=== PATIENT | male | born 1965 | race African-American/Black ===

== ENCOUNTER 2017-05-04 19:01 | Inpatient (IN) | payer SELFPAY, MEDICAID ==
[2017-05-04 19:48] LABS: ADD MAN DIFF? NO
[2017-05-04 19:52] LABS: BASO # 0.1 x10^3/uL (0.0-0.2); BASO % 2 % (0-3); EOS # 0.1 x10^3/uL (0.0-0.7); EOS % 2 % (0-3); HEMATOCRIT 36.4 % (39.0-53.0); HEMOGLOBIN 11.9 g/dL (13.0-17.5); LYMPH # 0.6 x10^3/uL (1.0-4.8); LYMPH % 10 % (24-48); MEAN CORPUSCULAR HEMOGLOBIN 27 pg (25-35); MEAN CORPUSCULAR HGB CONC 33 g/dL (31-37); MEAN CORPUSCULAR VOLUME 82 fL (79-100); MONO # 0.5 x10^3/uL (0.0-1.1); MONO % 8 % (0-9); NEUT # 4.8 x10^3uL (1.8-7.7); NEUT % 79 % (31-73); PLATELET COUNT 270 x10^3/uL (140-400); RED BLOOD COUNT 4.44 x10^6/uL (4.30-5.70); RED CELL DISTRIBUTION WIDTH 15.4 % (11.5-14.5); WHITE BLOOD COUNT 6.2 x10^3/uL (4.0-11.0)
[2017-05-04] MEDS: hydrALAZINE 20 MG/ML VIAL. IVP (19:53)
[2017-05-04 20:06] LABS: ANION GAP 15 (6-14); BLOOD UREA NITROGEN 53 mg/dL (8-26); BUN/CREATININE RATIO 8 (6-20); CALCIUM 8.6 mg/dL (8.5-10.1); CARBON DIOXIDE 27 mmol/L (21-32); CHLORIDE 100 mmol/L (98-107); CREATININE 6.7 mg/dL (0.7-1.3); GFR 10.5; GLUCOSE 120 mg/dL (70-99); SODIUM 142 mmol/L (136-145)
[2017-05-04 20:10] LABS: INR 1.1 (0.8-1.1); PROTHROMBIN TIME PATIENT 13.3 SEC (11.7-14.0)
[2017-05-04 20:11] LABS: PARTIAL THROMBOPLASTIN TIME 32 SEC (24-38)
[2017-05-04 20:13] LABS: ALBUMIN 3.6 g/dL (3.4-5.0); ALBUMIN/GLOBULIN RATIO 0.9 (1.0-1.7); ALK PHOS 119 U/L (46-116); ALT (SGPT) 28 U/L (16-63); AST (SGOT) 27 U/L (15-37); TOTAL BILIRUBIN 0.5 mg/dL (0.2-1.0); TOTAL PROTEIN 7.4 g/dL (6.4-8.2)
[2017-05-04 20:17] LABS: TROPONINI 0.424 ng/mL (0.000-0.055)
[2017-05-04 20:18] LABS: NT-PRO BNP 24920 pg/mL (0-124)
[2017-05-04] MEDS: cloNIDine HCL 0.1 MG TABLET PO ×2 (21:10→22:12)
[2017-05-04] MEDS: ASPIRIN 325 MG TABLET PO (21:37)
[2017-05-04] MEDS ORDERED: NITROGLYCERIN SUBLINGUAL 0.4 MG BOTTLE OF 25. SL (21:45)
[2017-05-04] MEDS ORDERED: MORPHINE SULFATE 2 MG/ML DISP.SYRIN. IV (21:45)
[2017-05-04] MEDS ORDERED: ACETAMINOPHEN 325 MG TABLET. PO (21:45)
[2017-05-04] MEDS ORDERED: ONDANSETRON PF 4 MG/2 ML VIAL. IV (21:45)
[2017-05-05 03:56] LABS: ADD MAN DIFF? NO
[2017-05-05 04:01] LABS: BASO # 0.1 x10^3/uL (0.0-0.2); BASO % 2 % (0-3); EOS # 0.1 x10^3/uL (0.0-0.7); EOS % 3 % (0-3); HEMATOCRIT 33.8 % (39.0-53.0); LYMPH # 0.8 x10^3/uL (1.0-4.8); LYMPH % 18 % (24-48); MEAN CORPUSCULAR HEMOGLOBIN 27 pg (25-35); MEAN CORPUSCULAR HGB CONC 33 g/dL (31-37); MEAN CORPUSCULAR VOLUME 82 fL (79-100); MONO # 0.5 x10^3/uL (0.0-1.1); MONO % 10 % (0-9); NEUT % 67 % (31-73); PLATELET COUNT 239 x10^3/uL (140-400); RED BLOOD COUNT 4.12 x10^6/uL (4.30-5.70); RED CELL DISTRIBUTION WIDTH 15.6 % (11.5-14.5); WHITE BLOOD COUNT 4.5 x10^3/uL (4.0-11.0)
[2017-05-05 04:13] LABS: ANION GAP 11 (6-14); BLOOD UREA NITROGEN 54 mg/dL (8-26); CALCIUM 8.2 mg/dL (8.5-10.1); CARBON DIOXIDE 25 mmol/L (21-32); CHLORIDE 104 mmol/L (98-107); CREATININE 6.7 mg/dL (0.7-1.3); GFR 10.5; GLUCOSE 98 mg/dL (70-99); POTASSIUM 4.6 mmol/L (3.5-5.1); SODIUM 140 mmol/L (136-145)
[2017-05-05 04:22] LABS: TROPONINI 0.378 ng/mL (0.000-0.055)
[2017-05-05] MEDS: cloNIDine HCL 0.2 MG TABLET PO ×3 (06:08→22:27)
[2017-05-05 10:00] LABS: TROPONINI 0.308 ng/mL (0.000-0.055)
[2017-05-05] MEDS: ASPIRIN ENTERIC COATED 325 MG TABLET.DR. PO (10:12)
[2017-05-05] MEDS: amLODIPine BESYLATE 10 MG TABLET PO (10:12)
[2017-05-05] MEDS: CALCIUM ACETATE 667 MG CAPSULE PO ×4 (10:12→17:46)
[2017-05-05] MEDS: CARVEDILOL 6.25 MG TABLET. PO ×2 (10:13→17:47)
[2017-05-05] MEDS ORDERED: IV NORMAL SALINE 1000ML BAG 1,000 ML IV ×2 (10:47)
[2017-05-05] MEDS ORDERED: DIALYSIS PATIENT. MC (11:00)
[2017-05-05] MEDS ORDERED: diphenhydrAMINE 50 MG/ML VIAL IV ×2 (11:00)
[2017-05-05] MEDS ORDERED: 0.9 % SODIUM CHLORIDE 10 ML DISP.SYRIN. IV ×2 (11:00)
[2017-05-05] MEDS: oxyCODONE/APAP 5/325 1 TAB TABLET PO (19:00)
[2017-05-05] MEDS ORDERED: LISINOPRIL 20 MG TABLET PO (21:00)
[2017-05-06] MEDS: cloNIDine HCL 0.2 MG TABLET PO ×3 (06:06→21:17)
[2017-05-06] MEDS: IPRATRPIUM/ALBUTEROL 0.5/2.5MG 3 ML NEBU. NEB (07:21)
[2017-05-06] MEDS: CALCIUM ACETATE 667 MG CAPSULE PO ×3 (09:02→17:36)
[2017-05-06] MEDS: ASPIRIN ENTERIC COATED 325 MG TABLET.DR. PO (09:03)
[2017-05-06] MEDS: amLODIPine BESYLATE 10 MG TABLET PO (09:04)
[2017-05-06] MEDS: CARVEDILOL 6.25 MG TABLET. PO ×2 (09:04→17:36)
[2017-05-06] MEDS: ALBUTEROL SULFATE 2.5 MG/3 ML NEBU. NEB (12:01)
[2017-05-07] MEDS: cloNIDine HCL 0.2 MG TABLET PO ×3 (05:38→21:35)
[2017-05-07 05:39] LABS: HEMOGLOBIN 10.1 g/dL (13.0-17.5); MEAN CORPUSCULAR HEMOGLOBIN 28 pg (25-35); MEAN CORPUSCULAR HGB CONC 34 g/dL (31-37); MEAN CORPUSCULAR VOLUME 83 fL (79-100); PLATELET COUNT 190 x10^3/uL (140-400); RED BLOOD COUNT 3.63 x10^6/uL (4.30-5.70); RED CELL DISTRIBUTION WIDTH 15.7 % (11.5-14.5); WHITE BLOOD COUNT 4.2 x10^3/uL (4.0-11.0)
[2017-05-07 06:10] LABS: ANION GAP 10 (6-14); BLOOD UREA NITROGEN 47 mg/dL (8-26); CARBON DIOXIDE 27 mmol/L (21-32); CHLORIDE 102 mmol/L (98-107); CREATININE 5.7 mg/dL (0.7-1.3); GFR 12.7; GLUCOSE 95 mg/dL (70-99); POTASSIUM 4.7 mmol/L (3.5-5.1); SODIUM 139 mmol/L (136-145)
[2017-05-07] MEDS ORDERED: IV NORMAL SALINE 1000ML BAG 1,000 ML IV ×2 (07:07)
[2017-05-07] MEDS ORDERED: diphenhydrAMINE 50 MG/ML VIAL IV ×2 (07:15)
[2017-05-07] MEDS ORDERED: DIALYSIS PATIENT. MC (07:15)
[2017-05-07] MEDS ORDERED: 0.9 % SODIUM CHLORIDE 10 ML DISP.SYRIN. IV ×2 (07:15)
[2017-05-07] MEDS: CALCIUM ACETATE 667 MG CAPSULE PO ×3 (08:00→17:23)
[2017-05-07] MEDS: amLODIPine BESYLATE 10 MG TABLET PO (11:24)
[2017-05-07] MEDS: ASPIRIN ENTERIC COATED 325 MG TABLET.DR. PO (11:24)
[2017-05-07] MEDS: CARVEDILOL 6.25 MG TABLET. PO ×2 (11:24→17:23)
[2017-05-07] MEDS: oxyCODONE/APAP 5/325 1 TAB TABLET PO ×2 (11:25→21:34)
[2017-05-08] MEDS: cloNIDine HCL 0.2 MG TABLET PO ×3 (05:43→20:31)
[2017-05-08] MEDS: amLODIPine BESYLATE 10 MG TABLET PO (08:39)
[2017-05-08] MEDS: CALCIUM ACETATE 667 MG CAPSULE PO ×3 (08:39→17:26)
[2017-05-08] MEDS: ASPIRIN ENTERIC COATED 325 MG TABLET.DR. PO (08:39)
[2017-05-08] MEDS: CARVEDILOL 6.25 MG TABLET. PO ×2 (08:39→17:27)
[2017-05-08] MEDS: ALBUTEROL SULFATE 2.5 MG/3 ML NEBU. NEB ×2 (11:16→23:42)
[2017-05-08] MEDS: oxyCODONE/APAP 5/325 1 TAB TABLET PO (20:30)
[2017-05-09] MEDS: cloNIDine HCL 0.2 MG TABLET PO ×4 (05:01→20:51)
[2017-05-09] MEDS: CALCIUM ACETATE 667 MG CAPSULE PO ×4 (08:01→16:48)
[2017-05-09] MEDS: amLODIPine BESYLATE 10 MG TABLET PO (08:02)
[2017-05-09] MEDS: ASPIRIN ENTERIC COATED 325 MG TABLET.DR. PO (08:03)
[2017-05-09] MEDS: CARVEDILOL 6.25 MG TABLET. PO ×2 (08:04→16:48)
[2017-05-09] MEDS: ALPRAZolam 0.5 MG TABLET PO ×2 (09:00→18:50)
[2017-05-09] MEDS: NITROGLYCERIN SUBLINGUAL 0.4 MG BOTTLE OF 25. SL (13:26)
[2017-05-09] MEDS: MORPHINE SULFATE 4 MG/ML DISP.SYRIN. IV (13:29)
[2017-05-09 14:40] LABS: TROPONINI 0.097 ng/mL (0.000-0.055)
[2017-05-09] MEDS ORDERED: CALCIUM CARBONATE 500 MG TAB.CHEW PO (16:00)
[2017-05-09] MEDS: FAMOTIDINE 20 MG/2 ML VIAL IVP (16:48)
[2017-05-10 06:10] LABS: ADD MAN DIFF? NO
[2017-05-10 06:13] LABS: BASO % 1 % (0-3); EOS # 0.2 x10^3/uL (0.0-0.7); EOS % 4 % (0-3); HEMATOCRIT 31.4 % (39.0-53.0); HEMOGLOBIN 10.2 g/dL (13.0-17.5); LYMPH # 0.9 x10^3/uL (1.0-4.8); LYMPH % 26 % (24-48); MEAN CORPUSCULAR HEMOGLOBIN 27 pg (25-35); MEAN CORPUSCULAR HGB CONC 33 g/dL (31-37); MEAN CORPUSCULAR VOLUME 82 fL (79-100); MONO # 0.4 x10^3/uL (0.0-1.1); MONO % 10 % (0-9); NEUT # 2.1 x10^3uL (1.8-7.7); NEUT % 59 % (31-73); PLATELET COUNT 173 x10^3/uL (140-400); RED BLOOD COUNT 3.83 x10^6/uL (4.30-5.70); RED CELL DISTRIBUTION WIDTH 15.8 % (11.5-14.5); WHITE BLOOD COUNT 3.6 x10^3/uL (4.0-11.0)
[2017-05-10 06:39] LABS: ALBUMIN 2.9 g/dL (3.4-5.0); ALBUMIN/GLOBULIN RATIO 0.9 (1.0-1.7); ALK PHOS 91 U/L (46-116); ALT (SGPT) 15 U/L (16-63); ANION GAP 10 (6-14); AST (SGOT) 8 U/L (15-37); BLOOD UREA NITROGEN 60 mg/dL (8-26); BUN/CREATININE RATIO 10 (6-20); CALCIUM 8.2 mg/dL (8.5-10.1); CARBON DIOXIDE 26 mmol/L (21-32); CHLORIDE 102 mmol/L (98-107); CHOLESTEROL 169 mg/dL (0-200); CREATININE 6.1 mg/dL (0.7-1.3); GFR 11.7; GLUCOSE 98 mg/dL (70-99); HDLC 85 mg/dL (40-60); LDLC 78 mg/dL (0-100); NON-HDL CHOLESTEROL 84 mg/dL (0-129); POTASSIUM 4.7 mmol/L (3.5-5.1); SODIUM 138 mmol/L (136-145); TOTAL BILIRUBIN 0.3 mg/dL (0.2-1.0); TOTAL PROTEIN 6.1 g/dL (6.4-8.2); TRIGLYCERIDES 30 mg/dL (0-150); VLDLC 6 mg/dL (0-40)
[2017-05-10] MEDS: cloNIDine HCL 0.2 MG TABLET PO ×3 (06:43→20:52)
[2017-05-10 07:02] LABS: TROPONINI 0.085 ng/mL (0.000-0.055)
[2017-05-10] MEDS: CALCIUM ACETATE 667 MG CAPSULE PO ×3 (08:00→17:00)
[2017-05-10] MEDS ORDERED: IV NORMAL SALINE 1000ML BAG 1,000 ML IV ×2 (08:17)
[2017-05-10] MEDS ORDERED: DIALYSIS PATIENT. MC (08:30)
[2017-05-10] MEDS ORDERED: diphenhydrAMINE 50 MG/ML VIAL IV ×2 (08:30)
[2017-05-10] MEDS ORDERED: 0.9 % SODIUM CHLORIDE 10 ML DISP.SYRIN. IV ×2 (08:30)
[2017-05-10] MEDS: CARVEDILOL 6.25 MG TABLET. PO ×2 (09:27→17:00)
[2017-05-10] MEDS: ASPIRIN ENTERIC COATED 325 MG TABLET.DR. PO (09:27)
[2017-05-10] MEDS: amLODIPine BESYLATE 10 MG TABLET PO (09:28)
[2017-05-10] MEDS ORDERED: LIDOCAINE 2% 20 ML VIAL. (11:11)
[2017-05-10] MEDS ORDERED: IODIXANOL 320 MG/ML 100 ML VIAL. (11:12)
[2017-05-10] MEDS ORDERED: fentaNYL PF VIAL 100 MCG/2 ML VIAL (11:59)
[2017-05-10] MEDS ORDERED: MIDAZOLAM HCL/PF 2 MG/2 ML VIAL. (11:59)
[2017-05-10] MEDS: IODIXANOL 320 MG/ML 100 ML VIAL. IART ×2 (12:15→12:21)
[2017-05-10] MEDS: MIDAZOLAM HCL/PF 2 MG/2 ML VIAL. IV (12:21)
[2017-05-10] MEDS: LIDOCAINE 2% 20 ML VIAL. IJ (12:21)
[2017-05-10] MEDS: fentaNYL PF VIAL 100 MCG/2 ML VIAL IV (12:22)
[2017-05-11] MEDS: ALPRAZolam 0.5 MG TABLET PO ×3 (01:02→21:11)
[2017-05-11] MEDS: cloNIDine HCL 0.2 MG TABLET PO ×3 (05:59→21:12)
[2017-05-11] MEDS: amLODIPine BESYLATE 10 MG TABLET PO (08:15)
[2017-05-11] MEDS: CARVEDILOL 6.25 MG TABLET. PO ×2 (08:15→16:55)
[2017-05-11] MEDS: ASPIRIN ENTERIC COATED 325 MG TABLET.DR. PO (08:15)
[2017-05-11] MEDS: CALCIUM ACETATE 667 MG CAPSULE PO ×3 (08:15→16:55)
[2017-05-11] MEDS: MORPHINE SULFATE 4 MG/ML DISP.SYRIN. IV (20:46)
[2017-05-11] MEDS: oxyCODONE/APAP 5/325 1 TAB TABLET PO (21:13)
[2017-05-12 05:38] LABS: ANION GAP 10 (6-14); BLOOD UREA NITROGEN 44 mg/dL (8-26); CALCIUM 8.1 mg/dL (8.5-10.1); CARBON DIOXIDE 26 mmol/L (21-32); CHLORIDE 103 mmol/L (98-107); CREATININE 5.3 mg/dL (0.7-1.3); GFR 13.8; GLUCOSE 136 mg/dL (70-99); POTASSIUM 3.7 mmol/L (3.5-5.1); SODIUM 139 mmol/L (136-145)
[2017-05-12] MEDS: cloNIDine HCL 0.2 MG TABLET PO ×2 (05:38→13:44)
[2017-05-12] MEDS: oxyCODONE/APAP 5/325 1 TAB TABLET PO (05:38)
[2017-05-12] MEDS: ALPRAZolam 0.5 MG TABLET PO (05:38)
[2017-05-12] MEDS: amLODIPine BESYLATE 10 MG TABLET PO (08:23)
[2017-05-12] MEDS: CARVEDILOL 6.25 MG TABLET. PO (08:23)
[2017-05-12] MEDS: CALCIUM ACETATE 667 MG CAPSULE PO ×2 (08:23→11:12)
[2017-05-12] MEDS: ASPIRIN ENTERIC COATED 325 MG TABLET.DR. PO (08:23)
[2017-05-12] MEDS ORDERED: DIALYSIS PATIENT. MC ×2 (08:45)
[2017-05-12] MEDS ORDERED: ACETAMINOPHEN 325 MG TABLET. PO (12:00)
== END 2017-05-12 14:33 | disposition home or self-care (01) | DRG 286 ==
LOC: 5 NORTH 05-09 01:48 → ER 19:01 → 5 NORTH 05-06 16:17 → 2 SOUTH 20:20
PROC: 5A1D70Z Performance of Urinary Filtration, Intermittent, Less than 6 Hours Per Day (ICD-10-PCS; 2017-05-05)
PROC: 5A1D70Z Performance of Urinary Filtration, Intermittent, Less than 6 Hours Per Day (ICD-10-PCS; 2017-05-07)
PROC: 4A023N7 Measurement of Cardiac Sampling and Pressure, Left Heart, Percutaneous Approach (ICD-10-PCS; principal; 2017-05-10)
PROC: B2111ZZ Fluoroscopy of Multiple Coronary Arteries using Low Osmolar Contrast (ICD-10-PCS; 2017-05-10)
PROC: B2151ZZ Fluoroscopy of Left Heart using Low Osmolar Contrast (ICD-10-PCS; 2017-05-10)
PROC: 5A1D70Z Performance of Urinary Filtration, Intermittent, Less than 6 Hours Per Day (ICD-10-PCS; 2017-05-10)
PROC: 5A1D70Z Performance of Urinary Filtration, Intermittent, Less than 6 Hours Per Day (ICD-10-PCS; 2017-05-12)
DX: I13.2 Hypertensive heart and chronic kidney disease with heart failure and with stage 5 chronic kidney disease, or end stage renal disease (principal); I50.31 Acute diastolic (congestive) heart failure; E11.22 Type 2 diabetes mellitus with diabetic chronic kidney disease; N18.6 End stage renal disease; D64.9 Anemia, unspecified; E78.5 Hyperlipidemia, unspecified; I16.0 Hypertensive urgency; E21.3 Hyperparathyroidism, unspecified; F41.9 Anxiety disorder, unspecified; Z82.49 Family history of ischemic heart disease and other diseases of the circulatory system; Z99.2 Dependence on renal dialysis; Z88.8 Allergy status to other drugs, medicaments and biological substances
CPT/HCPCS: 36415; 70450; 71045; 80048; 80053; 80061; 83880; 84484; 85025; 85027; 85610; 85730; 93005; 93458; 94640; 94760; 96374; 99152; 99153; 99285; 99285-25; C1769; C1892; J0360; J1644; J2250; J2270; J3010; J7050; J7613; J7620; S0028

== ENCOUNTER 2017-10-23 09:00 | Inpatient (IN) | payer SELFPAY, MEDICAID ==
[2017-10-23 09:50] LABS: ADD MAN DIFF? NO
[2017-10-23 09:56] LABS: BASO # 0.1 x10^3/uL (0.0-0.2); BASO % 2 % (0-3); EOS # 0.2 x10^3/uL (0.0-0.7); EOS % 3 % (0-3); HEMATOCRIT 32.5 % (39.0-53.0); HEMOGLOBIN 10.6 g/dL (13.0-17.5); LYMPH % 16 % (24-48); MEAN CORPUSCULAR HEMOGLOBIN 27 pg (25-35); MEAN CORPUSCULAR HGB CONC 33 g/dL (31-37); MEAN CORPUSCULAR VOLUME 82 fL (79-100); MONO # 0.6 x10^3/uL (0.0-1.1); MONO % 11 % (0-9); NEUT # 4.2 x10^3uL (1.8-7.7); NEUT % 69 % (31-73); PLATELET COUNT 238 x10^3/uL (140-400); RED BLOOD COUNT 3.97 x10^6/uL (4.30-5.70); RED CELL DISTRIBUTION WIDTH 17.6 % (11.5-14.5); WHITE BLOOD COUNT 6.2 x10^3/uL (4.0-11.0)
[2017-10-23] MEDS: CALCIUM CARBONATE 500 MG TABLET PO (10:04)
[2017-10-23 10:05] LABS: ANION GAP 8 (6-14); BLOOD UREA NITROGEN 38 mg/dL (8-26); BUN/CREATININE RATIO 7 (6-20); CALCIUM 7.2 mg/dL (8.5-10.1); CARBON DIOXIDE 30 mmol/L (21-32); CHLORIDE 99 mmol/L (98-107); CREATININE 5.7 mg/dL (0.7-1.3); GFR 12.7; GLUCOSE 107 mg/dL (70-99); INR 1.2 (0.8-1.1); PROTHROMBIN TIME PATIENT 14.2 SEC (11.7-14.0); SODIUM 137 mmol/L (136-145)
[2017-10-23 10:11] LABS: ALBUMIN 2.8 g/dL (3.4-5.0); ALBUMIN/GLOBULIN RATIO 0.8 (1.0-1.7); ALK PHOS 105 U/L (46-116); ALT (SGPT) 56 U/L (16-63); AST (SGOT) 20 U/L (15-37); MAGNESIUM 2.1 mg/dL (1.8-2.4); TOTAL BILIRUBIN 0.5 mg/dL (0.2-1.0); TOTAL PROTEIN 6.5 g/dL (6.4-8.2)
[2017-10-23 10:17] LABS: NT-PRO BNP 32714 pg/mL (0-124)
[2017-10-23] MEDS: ASPIRIN CHEWABLE 81 MG TABLET. PO (10:51)
[2017-10-23] MEDS: NITROGLYCERIN SUBLINGUAL 0.4 MG BOTTLE OF 25. SL ×2 (10:52→10:59)
[2017-10-23] MEDS: fentaNYL PF VIAL 100 MCG/2 ML VIAL IV (10:54)
[2017-10-23 10:57] LABS: TROPONINI 0.147 ng/mL (0.000-0.055)
[2017-10-23] MEDS ORDERED: ONDANSETRON ODT 4 MG TAB.RAPDIS. PO (12:00)
[2017-10-23] MEDS ORDERED: ACETAMINOPHEN 500 MG TABLET PO (12:00)
[2017-10-23] MEDS ORDERED: ONDANSETRON PF 4 MG/2 ML VIAL. IV (12:00)
[2017-10-23] MEDS: CALCIUM ACETATE 667 MG CAPSULE PO ×2 (13:28→18:31)
[2017-10-23] MEDS: cloNIDine HCL 0.3 MG TABLET PO ×2 (13:30→21:20)
[2017-10-23] MEDS ORDERED: IV NORMAL SALINE 1000ML BAG 1,000 ML IV ×2 (13:30)
[2017-10-23] MEDS ORDERED: DIALYSIS PATIENT. MC ×2 (13:30)
[2017-10-23] MEDS: LIDOCAINE 1% PF 2 ML VIAL. INJ (14:10)
[2017-10-23] MEDS ORDERED: LIDOCAINE 1% PF 2 ML VIAL. ×2 (14:19→15:00)
[2017-10-23] MEDS: oxyCODONE/APAP 5/325 1 TAB TABLET PO (14:44)
[2017-10-23 15:14] LABS: TROPONINI 0.132 ng/mL (0.000-0.055)
[2017-10-23] MEDS: ACETAMINOPHEN/CODEINE 300/30MG TABLET. PO (15:37)
[2017-10-23] MEDS: CARVEDILOL 3.125 MG TABLET. PO (18:32)
[2017-10-23] MEDS: ALPRAZolam 0.5 MG TABLET PO (23:51)
[2017-10-24] MEDS: cloNIDine HCL 0.3 MG TABLET PO ×4 (06:35→20:17)
[2017-10-24] MEDS: ALPRAZolam 0.5 MG TABLET PO (08:03)
[2017-10-24] MEDS: oxyCODONE/APAP 5/325 1 TAB TABLET PO (08:05)
[2017-10-24] MEDS: CARVEDILOL 3.125 MG TABLET. PO ×2 (08:07→17:00)
[2017-10-24] MEDS: CALCIUM ACETATE 667 MG CAPSULE PO ×3 (08:07→17:01)
[2017-10-24] MEDS: ASPIRIN ENTERIC COATED 325 MG TABLET.DR. PO (08:07)
[2017-10-24] MEDS: amLODIPine BESYLATE 10 MG TABLET PO (08:08)
[2017-10-24 09:11] LABS: ALBUMIN 2.3 g/dL (3.4-5.0); ANION GAP 6 (6-14); BLOOD UREA NITROGEN 26 mg/dL (8-26); CALCIUM 7.4 mg/dL (8.5-10.1); CARBON DIOXIDE 29 mmol/L (21-32); CHLORIDE 102 mmol/L (98-107); CREATININE 4.3 mg/dL (0.7-1.3); GFR 17.6; GLUCOSE 164 mg/dL (70-99); PHOSPHORUS 2.8 mg/dL (2.6-4.7); POTASSIUM 3.7 mmol/L (3.5-5.1); SODIUM 137 mmol/L (136-145)
[2017-10-24] MEDS: ACETAMINOPHEN/CODEINE 300/30MG TABLET. PO (14:34)
[2017-10-24] MEDS: DARBEPOETIN ALFA 60 MCG/0.3 ML DISP.SYRIN. SQ (20:19)
[2017-10-25] MEDS: oxyCODONE/APAP 5/325 1 TAB TABLET PO (00:36)
[2017-10-25] MEDS: ALPRAZolam 0.5 MG TABLET PO (00:36)
[2017-10-25] MEDS: cloNIDine HCL 0.3 MG TABLET PO ×2 (06:28→14:00)
[2017-10-25 08:09] LABS: HEMATOCRIT 33.3 % (39.0-53.0); HEMOGLOBIN 10.6 g/dL (13.0-17.5); MEAN CORPUSCULAR HEMOGLOBIN 26 pg (25-35); MEAN CORPUSCULAR HGB CONC 32 g/dL (31-37); MEAN CORPUSCULAR VOLUME 82 fL (79-100); PLATELET COUNT 215 x10^3/uL (140-400); RED BLOOD COUNT 4.06 x10^6/uL (4.30-5.70); WHITE BLOOD COUNT 5.8 x10^3/uL (4.0-11.0)
[2017-10-25 09:38] LABS: ANION GAP 10 (6-14); BLOOD UREA NITROGEN 32 mg/dL (8-26); CALCIUM 7.3 mg/dL (8.5-10.1); CARBON DIOXIDE 25 mmol/L (21-32); CHLORIDE 103 mmol/L (98-107); CREATININE 5.2 mg/dL (0.7-1.3); GFR 14.1; GLUCOSE 101 mg/dL (70-99); POTASSIUM 3.9 mmol/L (3.5-5.1); SODIUM 138 mmol/L (136-145)
[2017-10-25] MEDS ORDERED: LIDOCAINE 1% PF 2 ML VIAL. (09:47)
[2017-10-25] MEDS: CALCIUM ACETATE 667 MG CAPSULE PO ×2 (12:00→14:35)
[2017-10-25] MEDS ORDERED: DIALYSIS PATIENT. MC (12:00)
[2017-10-25] MEDS ORDERED: IV NORMAL SALINE 1000ML BAG 1,000 ML IV ×2 (12:00)
[2017-10-25] MEDS ORDERED: diphenhydrAMINE 50 MG/ML VIAL IV ×2 (12:00)
[2017-10-25] MEDS: CARVEDILOL 3.125 MG TABLET. PO (14:36)
[2017-10-25] MEDS: amLODIPine BESYLATE 10 MG TABLET PO (14:36)
[2017-10-25] MEDS: ASPIRIN ENTERIC COATED 325 MG TABLET.DR. PO (14:37)
== END 2017-10-25 16:55 | disposition home or self-care (01) | DRG 682 ==
LOC: ER 09:00 → 5 SOUTH 11:40
PROC: 5A1D70Z Performance of Urinary Filtration, Intermittent, Less than 6 Hours Per Day (ICD-10-PCS; principal; 2017-10-23)
PROC: 5A1D70Z Performance of Urinary Filtration, Intermittent, Less than 6 Hours Per Day (ICD-10-PCS; 2017-10-25)
DX: I12.0 Hypertensive chronic kidney disease with stage 5 chronic kidney disease or end stage renal disease (principal); N18.6 End stage renal disease; D63.1 Anemia in chronic kidney disease; E21.3 Hyperparathyroidism, unspecified; F41.9 Anxiety disorder, unspecified; Z99.2 Dependence on renal dialysis; Z82.3 Family history of stroke; Z82.49 Family history of ischemic heart disease and other diseases of the circulatory system; Z86.73 Personal history of transient ischemic attack (TIA), and cerebral infarction without residual deficits; Z91.19 Patient's noncompliance with other medical treatment and regimen; Z88.8 Allergy status to other drugs, medicaments and biological substances; Z79.82 Long term (current) use of aspirin; Z79.899 Other long term (current) drug therapy
CPT/HCPCS: 36415; 71045; 80048; 80053; 80069; 83735; 83880; 84484; 85025; 85027; 85610; 93005; 96374; 99285; 99285-25; J0881; J3010

== ENCOUNTER 2017-10-27 11:16 | Emergency (ER) | payer MEDICAID ==
[2017-10-27 12:54] LABS: ANION GAP 12 (6-14); BLOOD UREA NITROGEN 45 mg/dL (8-26); BUN/CREATININE RATIO 8 (6-20); CALCIUM 7.9 mg/dL (8.5-10.1); CARBON DIOXIDE 27 mmol/L (21-32); CHLORIDE 98 mmol/L (98-107); GLUCOSE 90 mg/dL (70-99); POTASSIUM 4.3 mmol/L (3.5-5.1); SODIUM 137 mmol/L (136-145)
[2017-10-27 12:59] LABS: ALBUMIN 3.1 g/dL (3.4-5.0); ALBUMIN/GLOBULIN RATIO 0.8 (1.0-1.7); ALK PHOS 108 U/L (46-116); ALT (SGPT) 33 U/L (16-63); AST (SGOT) 13 U/L (15-37); TOTAL BILIRUBIN 0.6 mg/dL (0.2-1.0); TOTAL PROTEIN 6.8 g/dL (6.4-8.2)
[2017-10-27 13:19] LABS: BILIRUBIN,URINE NEGATIVE (NEG); CLARITY,URINE CLEAR; GLUCOSE,URINE NEGATIVE (NEG); NITRITE,URINE NEGATIVE (NEG); PH,URINE 7.5; PROTEIN,URINE 100 mg/dL (NEG-TRACE); UROBILINOGEN,URINE 0.2 mg/dL (0.2 mg/dL)
[2017-10-27 13:42] LABS: BACTERIA,URINE 0 /HPF (0-FEW); COLOR,URINE STRAW; RBC,URINE RARE /HPF (0-2); SQUAMOUS EPITHELIAL CELL,UR OCC /LPF; WBC,URINE 0 /HPF (0-4)
[2017-10-27] MEDS ORDERED: oxyCODONE/APAP 5/325 1 TAB TABLET PO (13:45)
[2017-10-27] MEDS ORDERED: amLODIPine BESYLATE 5 MG TABLET PO (14:00)
[2017-10-27] MEDS ORDERED: LABETALOL 20 MG/4 ML DISP.SYRIN. IVP (14:00)
[2017-10-27] MEDS ORDERED: HYDRALAZINE HCL 100 MG PO (14:00)
[2017-10-27] MEDS: amLODIPine BESYLATE 5 MG TABLET PO (14:11)
[2017-10-27] MEDS ORDERED: CALCIUM ACETATE 667 MG PO (17:00)
[2017-10-27] MEDS ORDERED: CARVEDILOL 3.125 MG TABLET. PO (17:00)
[2017-10-28] MEDS ORDERED: ASPIRIN ENTERIC COATED 325 MG TABLET.DR. PO (08:00)
[2017-10-28] MEDS ORDERED: amLODIPine BESYLATE 10 MG TABLET PO (09:00)
== END 2017-10-27 14:18 | disposition home or self-care (01) ==
LOC: ER 11:16
DX: I12.0 Hypertensive chronic kidney disease with stage 5 chronic kidney disease or end stage renal disease (principal); N18.6 End stage renal disease; Z99.2 Dependence on renal dialysis; Z86.73 Personal history of transient ischemic attack (TIA), and cerebral infarction without residual deficits; Z88.8 Allergy status to other drugs, medicaments and biological substances
CPT/HCPCS: 36415; 80053; 81001; 99284

== ENCOUNTER 2017-10-29 13:02 | Inpatient (IN) | payer MEDICAID ==
[2017-10-29 13:25] LABS: ADD MAN DIFF? NO
[2017-10-29 13:26] LABS: BASO # 0.2 x10^3/uL (0.0-0.2); BASO % 3 % (0-3); EOS # 0.1 x10^3/uL (0.0-0.7); EOS % 3 % (0-3); HEMATOCRIT 31.8 % (39.0-53.0); HEMOGLOBIN 10.3 g/dL (13.0-17.5); LYMPH # 0.7 x10^3/uL (1.0-4.8); LYMPH % 13 % (24-48); MEAN CORPUSCULAR HEMOGLOBIN 26 pg (25-35); MEAN CORPUSCULAR HGB CONC 32 g/dL (31-37); MEAN CORPUSCULAR VOLUME 79 fL (79-100); MONO # 0.6 x10^3/uL (0.0-1.1); MONO % 10 % (0-9); NEUT # 4.2 x10^3uL (1.8-7.7); NEUT % 72 % (31-73); PLATELET COUNT 239 x10^3/uL (140-400); RED BLOOD COUNT 4.02 x10^6/uL (4.30-5.70); RED CELL DISTRIBUTION WIDTH 18.3 % (11.5-14.5); WHITE BLOOD COUNT 5.9 x10^3/uL (4.0-11.0)
[2017-10-29 13:34] LABS: ANION GAP 11 (6-14); BLOOD UREA NITROGEN 69 mg/dL (8-26); CALCIUM 7.6 mg/dL (8.5-10.1); CARBON DIOXIDE 25 mmol/L (21-32); CHLORIDE 100 mmol/L (98-107); CREATININE 7.5 mg/dL (0.7-1.3); GFR 9.2; GLUCOSE 131 mg/dL (70-99); POTASSIUM 4.3 mmol/L (3.5-5.1); SODIUM 136 mmol/L (136-145)
[2017-10-29] MEDS ORDERED: fentaNYL PF VIAL 100 MCG/2 ML VIAL IV (13:45)
[2017-10-29] MEDS ORDERED: ONDANSETRON PF 4 MG/2 ML VIAL. IV ×2 (13:45→14:15)
[2017-10-29] MEDS ORDERED: IV NORMAL SALINE 1000ML BAG 1,000 ML IV ×2 (14:04)
[2017-10-29] MEDS ORDERED: diphenhydrAMINE 50 MG/ML VIAL IV ×2 (14:15)
[2017-10-29] MEDS ORDERED: MORPHINE SULFATE 2 MG/ML DISP.SYRIN. IV (14:15)
[2017-10-29] MEDS ORDERED: LABETALOL 20 MG/4 ML DISP.SYRIN. IVP (14:15)
[2017-10-29] MEDS ORDERED: ACETAMINOPHEN 325 MG TABLET. PO (14:15)
[2017-10-29] MEDS ORDERED: ALBUMIN HUMAN 25% 200 ML IV (14:15)
[2017-10-29] MEDS ORDERED: ACETAMINOPHEN 500 MG TABLET PO (14:15)
[2017-10-29] MEDS ORDERED: hydrALAZINE 20 MG/ML VIAL. IVP (14:15)
[2017-10-29] MEDS ORDERED: DIALYSIS PATIENT. MC (14:15)
[2017-10-29] MEDS ORDERED: traMADol 50 MG TABLET PO (14:15)
[2017-10-29] MEDS ORDERED: cloNIDine HCL 0.1 MG TABLET PO (14:15)
[2017-10-29] MEDS ORDERED: oxyCODONE/APAP 5/325 1 TAB TABLET PO (14:15)
[2017-10-29] MEDS ORDERED: DOCUSATE SODIUM 100 MG CAPSULE. PO (14:15)
[2017-10-29] MEDS ORDERED: ASPIRIN ENTERIC COATED 325 MG TABLET.DR. PO (14:30)
[2017-10-29] MEDS ORDERED: amLODIPine BESYLATE 10 MG TABLET PO (14:30)
[2017-10-29] MEDS ORDERED: CARVEDILOL 3.125 MG TABLET. PO (17:00)
[2017-10-29] MEDS ORDERED: CALCIUM ACETATE 667 MG CAPSULE PO (17:00)
[2017-10-29] MEDS ORDERED: cloNIDine HCL 0.3 MG TABLET PO (21:00)
== END 2017-10-29 18:30 | disposition home or self-care (01) | DRG 682 ==
LOC: ER 13:02 → 5 SOUTH 13:20
PROC: 5A1D70Z Performance of Urinary Filtration, Intermittent, Less than 6 Hours Per Day (ICD-10-PCS; principal; 2017-10-29)
DX: I12.0 Hypertensive chronic kidney disease with stage 5 chronic kidney disease or end stage renal disease (principal); N18.6 End stage renal disease; I16.0 Hypertensive urgency; F41.9 Anxiety disorder, unspecified; E21.3 Hyperparathyroidism, unspecified; Z82.3 Family history of stroke; Z82.49 Family history of ischemic heart disease and other diseases of the circulatory system; Z86.73 Personal history of transient ischemic attack (TIA), and cerebral infarction without residual deficits; Z99.2 Dependence on renal dialysis; Z88.8 Allergy status to other drugs, medicaments and biological substances
CPT/HCPCS: 36415; 80048; 85025; 99285; 99285-25

== ENCOUNTER 2017-11-01 09:29 | Inpatient (IN) | payer MEDICAID ==
[2017-11-01 09:49] LABS: ADD MAN DIFF? NO
[2017-11-01 09:55] LABS: BASO # 0.1 x10^3/uL (0.0-0.2); BASO % 2 % (0-3); EOS # 0.2 x10^3/uL (0.0-0.7); EOS % 3 % (0-3); HEMOGLOBIN 9.3 g/dL (13.0-17.5); LYMPH # 1.3 x10^3/uL (1.0-4.8); LYMPH % 22 % (24-48); MEAN CORPUSCULAR HEMOGLOBIN 25 pg (25-35); MEAN CORPUSCULAR HGB CONC 32 g/dL (31-37); MEAN CORPUSCULAR VOLUME 79 fL (79-100); MONO # 0.6 x10^3/uL (0.0-1.1); MONO % 10 % (0-9); NEUT # 3.7 x10^3uL (1.8-7.7); NEUT % 64 % (31-73); PLATELET COUNT 193 x10^3/uL (140-400); RED BLOOD COUNT 3.67 x10^6/uL (4.30-5.70); RED CELL DISTRIBUTION WIDTH 18.8 % (11.5-14.5); WHITE BLOOD COUNT 5.8 x10^3/uL (4.0-11.0)
[2017-11-01] MEDS ORDERED: ONDANSETRON PF 4 MG/2 ML VIAL. IV (10:00)
[2017-11-01] MEDS ORDERED: fentaNYL PF VIAL 100 MCG/2 ML VIAL IV (10:00)
[2017-11-01 10:06] LABS: ANION GAP 12 (6-14); BLOOD UREA NITROGEN 67 mg/dL (8-26); CALCIUM 7.5 mg/dL (8.5-10.1); CARBON DIOXIDE 26 mmol/L (21-32); CHLORIDE 102 mmol/L (98-107); CREATININE 7.3 mg/dL (0.7-1.3); GFR 9.5; GLUCOSE 124 mg/dL (70-99); POTASSIUM 4.1 mmol/L (3.5-5.1); SODIUM 140 mmol/L (136-145)
[2017-11-01] MEDS ORDERED: amLODIPine BESYLATE 10 MG TABLET PO (12:30)
[2017-11-01] MEDS ORDERED: ASPIRIN ENTERIC COATED 325 MG TABLET.DR. PO (12:30)
[2017-11-01] MEDS ORDERED: oxyCODONE/APAP 5/325 1 TAB TABLET PO (12:30)
[2017-11-01] MEDS ORDERED: CALCIUM ACETATE 667 MG CAPSULE PO (12:30)
[2017-11-01] MEDS ORDERED: cloNIDine HCL 0.3 MG TABLET PO (14:00)
[2017-11-01] MEDS ORDERED: IV NORMAL SALINE 1000ML BAG 1,000 ML IV ×2 (16:33)
[2017-11-01] MEDS ORDERED: DIALYSIS PATIENT. MC ×2 (16:45)
[2017-11-01 16:54] LABS: MAGNESIUM 2.2 mg/dL (1.8-2.4); PHOSPHORUS 4.7 mg/dL (2.6-4.7)
[2017-11-01 16:54] LABS: ALBUMIN 3.1 g/dL (3.4-5.0)
[2017-11-01] MEDS ORDERED: CARVEDILOL 3.125 MG TABLET. PO (17:00)
== END 2017-11-01 19:02 | disposition home or self-care (01) | DRG 682 ==
LOC: ER 09:29 → 5 SOUTH 09:35
PROC: 5A1D70Z Performance of Urinary Filtration, Intermittent, Less than 6 Hours Per Day (ICD-10-PCS; principal; 2017-11-01)
DX: I12.0 Hypertensive chronic kidney disease with stage 5 chronic kidney disease or end stage renal disease (principal); N18.6 End stage renal disease; D63.1 Anemia in chronic kidney disease; F41.9 Anxiety disorder, unspecified; J45.909 Unspecified asthma, uncomplicated; E21.3 Hyperparathyroidism, unspecified; Z79.82 Long term (current) use of aspirin; Z86.73 Personal history of transient ischemic attack (TIA), and cerebral infarction without residual deficits; Z99.2 Dependence on renal dialysis; Z88.8 Allergy status to other drugs, medicaments and biological substances; Z82.3 Family history of stroke; Z82.49 Family history of ischemic heart disease and other diseases of the circulatory system
CPT/HCPCS: 36415; 80048; 82040; 83735; 84100; 85025; 99285-25

== ENCOUNTER 2017-11-03 13:24 | Inpatient (IN) | payer MEDICAID ==
[2017-11-03 13:46] LABS: ADD MAN DIFF? NO
[2017-11-03 13:49] LABS: BASO # 0.1 x10^3/uL (0.0-0.2); BASO % 2 % (0-3); EOS # 0.3 x10^3/uL (0.0-0.7); EOS % 4 % (0-3); HEMATOCRIT 30.9 % (39.0-53.0); HEMOGLOBIN 10.1 g/dL (13.0-17.5); LYMPH # 0.9 x10^3/uL (1.0-4.8); LYMPH % 15 % (24-48); MEAN CORPUSCULAR HEMOGLOBIN 25 pg (25-35); MEAN CORPUSCULAR HGB CONC 33 g/dL (31-37); MEAN CORPUSCULAR VOLUME 78 fL (79-100); MONO # 0.8 x10^3/uL (0.0-1.1); MONO % 12 % (0-9); NEUT # 4.3 x10^3uL (1.8-7.7); NEUT % 67 % (31-73); PLATELET COUNT 225 x10^3/uL (140-400); RED BLOOD COUNT 3.98 x10^6/uL (4.30-5.70); RED CELL DISTRIBUTION WIDTH 18.9 % (11.5-14.5); WHITE BLOOD COUNT 6.4 x10^3/uL (4.0-11.0)
[2017-11-03 14:15] LABS: BLOOD UREA NITROGEN 62 mg/dL (8-26); BUN/CREATININE RATIO 9 (6-20); CALCIUM 7.9 mg/dL (8.5-10.1); CARBON DIOXIDE 27 mmol/L (21-32); CREATININE 6.8 mg/dL (0.7-1.3); GFR 10.4; GLUCOSE 90 mg/dL (70-99); SODIUM 140 mmol/L (136-145)
[2017-11-03] MEDS ORDERED: ACETAMINOPHEN 325 MG TABLET. PO (14:15)
[2017-11-03] MEDS ORDERED: ONDANSETRON PF 4 MG/2 ML VIAL. IV (14:15)
[2017-11-03] MEDS ORDERED: MORPHINE SULFATE 2 MG/ML DISP.SYRIN. IV (14:15)
[2017-11-03 14:16] LABS: ALBUMIN 3.3 g/dL (3.4-5.0); ALBUMIN/GLOBULIN RATIO 0.9 (1.0-1.7); ALK PHOS 136 U/L (46-116); ALT (SGPT) 25 U/L (16-63); AST (SGOT) 17 U/L (15-37); TOTAL BILIRUBIN 0.5 mg/dL (0.2-1.0); TOTAL PROTEIN 7.1 g/dL (6.4-8.2)
[2017-11-03 14:18] LABS: ANION GAP 12 (6-14); CHLORIDE 101 mmol/L (98-107); POTASSIUM 4.8 mmol/L (3.5-5.1)
[2017-11-03] MEDS ORDERED: IV NORMAL SALINE 1000ML BAG 1,000 ML IV ×2 (14:41)
[2017-11-03] MEDS ORDERED: DIALYSIS PATIENT. MC ×2 (14:45)
[2017-11-03] MEDS ORDERED: LIDOCAINE 1% PF 2 ML VIAL. ×2 (15:09→15:10)
[2017-11-03] MEDS ORDERED: LABETALOL 20 MG/4 ML DISP.SYRIN. IVP (15:30)
[2017-11-03 17:10] LABS: % SAT IRON 8 % (15-34); IRON,SERUM 31 ug/dL (65-175)
[2017-11-03 17:27] LABS: FERRITIN 17 ng/mL (26-388)
[2017-11-03] MEDS: cloNIDine TTS-3 1 PATCH PATCH.TDWK TD (19:43)
[2017-11-05 15:34] LABS: CALCIUM PTH 8.4 mg/dL (8.7-10.2); CREATININE PTH 6.23 mg/dL (0.76-1.27); PHOSPHORUS PTH 3.7 mg/dL (2.5-4.5); PTH INTACT 361 pg/mL (15-65); eGFR AFRICAN-AMER 11 (>59); eGFR NON AFRICAN-AMER 9 (>59)
== END 2017-11-03 20:00 | disposition home or self-care (01) | DRG 682 ==
LOC: ER 13:24 → 5 SOUTH 14:34
PROC: 5A1D70Z Performance of Urinary Filtration, Intermittent, Less than 6 Hours Per Day (ICD-10-PCS; principal; 2017-11-03)
DX: I12.0 Hypertensive chronic kidney disease with stage 5 chronic kidney disease or end stage renal disease (principal); N18.6 End stage renal disease; J45.909 Unspecified asthma, uncomplicated; E83.51 Hypocalcemia; D64.9 Anemia, unspecified; F41.9 Anxiety disorder, unspecified; Z86.73 Personal history of transient ischemic attack (TIA), and cerebral infarction without residual deficits; Z99.2 Dependence on renal dialysis; Z98.1 Arthrodesis status; Z88.8 Allergy status to other drugs, medicaments and biological substances; Z82.3 Family history of stroke; Z82.49 Family history of ischemic heart disease and other diseases of the circulatory system; I10 Essential (primary) hypertension
CPT/HCPCS: 36415; 80053; 82728; 83540; 83550; 83970; 85025

== ENCOUNTER 2017-11-05 09:55 | Observation (INO) | payer MEDICAID ==
[2017-11-05 10:34] LABS: ALBUMIN 3.4 g/dL (3.4-5.0); ALBUMIN/GLOBULIN RATIO 0.9 (1.0-1.7); ALK PHOS 130 U/L (46-116); ALT (SGPT) 23 U/L (16-63); ANION GAP 10 (6-14); AST (SGOT) 17 U/L (15-37); BLOOD UREA NITROGEN 61 mg/dL (8-26); BUN/CREATININE RATIO 10 (6-20); CARBON DIOXIDE 28 mmol/L (21-32); CHLORIDE 100 mmol/L (98-107); CREATININE 6.2 mg/dL (0.7-1.3); GFR 11.5; GLUCOSE 72 mg/dL (70-99); POTASSIUM 4.3 mmol/L (3.5-5.1); SODIUM 138 mmol/L (136-145); TOTAL BILIRUBIN 0.4 mg/dL (0.2-1.0); TOTAL PROTEIN 7.1 g/dL (6.4-8.2)
[2017-11-05] MEDS ORDERED: IV NORMAL SALINE 1000ML BAG 1,000 ML IV ×2 (10:57)
[2017-11-05] MEDS ORDERED: DIALYSIS PATIENT. MC ×2 (11:00)
[2017-11-05] MEDS ORDERED: oxyCODONE/APAP 5/325 1 TAB TABLET PO (16:00)
[2017-11-05] MEDS ORDERED: CALCIUM ACETATE 667 MG CAPSULE PO (17:00)
[2017-11-05] MEDS ORDERED: CARVEDILOL 3.125 MG TABLET. PO (17:00)
[2017-11-05] MEDS ORDERED: cloNIDine HCL 0.2 MG TABLET PO (17:00)
[2017-11-06] MEDS ORDERED: ASPIRIN ENTERIC COATED 325 MG TABLET.DR. PO (08:00)
[2017-11-06] MEDS ORDERED: amLODIPine BESYLATE 10 MG TABLET PO (09:00)
== END 2017-11-05 16:25 | disposition home or self-care (01) ==
LOC: 5 SOUTH 11:25 → ER 09:55 → 5 SOUTH 11:20
DX: I12.0 Hypertensive chronic kidney disease with stage 5 chronic kidney disease or end stage renal disease (principal); N18.6 End stage renal disease; E11.22 Type 2 diabetes mellitus with diabetic chronic kidney disease; J45.909 Unspecified asthma, uncomplicated; Z82.3 Family history of stroke; Z82.49 Family history of ischemic heart disease and other diseases of the circulatory system; Z83.3 Family history of diabetes mellitus; Z86.73 Personal history of transient ischemic attack (TIA), and cerebral infarction without residual deficits; Z99.2 Dependence on renal dialysis
CPT/HCPCS: 36415; 80053; 99285; G0378; G0379

== ENCOUNTER 2017-11-12 12:52 | Emergency (ER) | payer MEDICAID ==
[2017-11-12 13:46] LABS: ANION GAP 9 (6-14); BLOOD UREA NITROGEN 88 mg/dL (8-26); CALCIUM 7.5 mg/dL (8.5-10.1); CARBON DIOXIDE 27 mmol/L (21-32); CHLORIDE 100 mmol/L (98-107); CREATININE 8.2 mg/dL (0.7-1.3); GFR 8.3; GLUCOSE 110 mg/dL (70-99); POTASSIUM 4.3 mmol/L (3.5-5.1); SODIUM 136 mmol/L (136-145)
== END 2017-11-12 13:59 | disposition home or self-care (01) ==
LOC: ER 12:52
DX: I12.0 Hypertensive chronic kidney disease with stage 5 chronic kidney disease or end stage renal disease (principal); N18.6 End stage renal disease; J45.909 Unspecified asthma, uncomplicated; Z99.2 Dependence on renal dialysis; Z86.73 Personal history of transient ischemic attack (TIA), and cerebral infarction without residual deficits; Z98.1 Arthrodesis status; Z88.8 Allergy status to other drugs, medicaments and biological substances
CPT/HCPCS: 36415; 80048; 93005; 99285-25

== ENCOUNTER 2018-01-26 01:28 | Inpatient (IN) | payer OTHER ==
[~2018-01-26] VITALS: Ht 172.7 cm; Wt 81.3 kg
[~2018-01-26 01:28] MED LIST: ALPR0.5T6 PO; AMLO10TA6 PO; ASPI325T11 PO; CARV12.52 PO; CARV3.122 PO; CLON0.1T PO; CLON0.2T10 PO; CLON1PAT2 TD; Calcium Acetate PO; HYDR-2869 PO; OXYC1TAB7 PO
[2018-01-26 02:52] LABS: BASO # 0.1 x10^3/uL (0.0-0.2); BASO % 2 % (0-3); EOS # 0.1 x10^3/uL (0.0-0.7); EOS % 2 % (0-3); HEMATOCRIT 28.9 % (39.0-53.0); HEMOGLOBIN 9.6 g/dL (13.0-17.5); LYMPH # 1.3 x10^3/uL (1.0-4.8); LYMPH % 22 % (24-48); MEAN CORPUSCULAR HEMOGLOBIN 25 pg (25-35); MEAN CORPUSCULAR HGB CONC 33 g/dL (31-37); MEAN CORPUSCULAR VOLUME 74 fL (79-100); MONO # 0.5 x10^3/uL (0.0-1.1); MONO % 10 % (0-9); NEUT # 3.7 x10^3uL (1.8-7.7); NEUT % 65 % (31-73); PLATELET COUNT 317 x10^3/uL (140-400); RED CELL DISTRIBUTION WIDTH 26.2 % (11.5-14.5); WHITE BLOOD COUNT 5.7 x10^3/uL (4.0-11.0)
[2018-01-26 03:00] VITALS: BP 150/92
[2018-01-26 03:02] LABS: CALCIUM 8.7 mg/dL (8.5-10.1); CREATININE 7.7 mg/dL (0.7-1.3); POTASSIUM 4.4 mmol/L (3.5-5.1)
--- NOTE | 2018-01-26 03:08 | PHYS DOC ---
Past Medical History Past Medical History: Asthma, CVA, Hypertension, Renal Failure, Other Additional Past Medical Histor: KIDNEY DISEASE,ESRD Past Surgical History: Cervical Fusion, Other Additional Past Surgical Histo: DIALYSIS GRAFT REMOVED FROM RIGHT SUBCLAVIAN, FISTULA L ARM,HERNIA Alcohol Use: None Drug Use: None Adult General Chief Complaint Chief Complaint: DIALYSIS PROBLEM HPI HPI Patient is a 52 year old male who presents for admission and dialysis. The patient has not had medicated established until very recently. Because of this, his only means to attain dialysis was by coming to the emergency department and checking in to the hospital as an inpatient. He last dialyzed over a week ago. Patient presents today requesting admission for dialysis. He does have some signs of fluid overload with some intermittent shortness of breath. He also has some lower extremity edema. He denies chest pain. He denies any acute complaints otherwise this evening. Review of Systems Review of Systems Constitutional: Denies fever Eyes: Denies HENT: Denies Respiratory: Denies Cardiovascular: No additional information not addressed in HPI GI: Denies abdominal pain : Denies dysuria Musculoskeletal: Denies Integument: Denies rash or skin lesions Neurologic: Denies headache All other systems were reviewed and found to be within normal limits, except as documented in this note. Allergies Allergies Allergies Coded Allergies Type Severity Reaction Last Updated Verified lisinopril Allergy Severe Swelling 06/01/17 Yes I S O L A T I O N *CONTACT* Allergy Unknown 01/17/18 Yes Physical Exam Physical Exam Constitutional: Well developed, well nourished, no acute distress HENT: Normocephalic, atraumatic, bilateral external ears normal, oropharynx moist Eyes: PERRLA, EOMI, conjunctiva normal, no discharge Neck: Normal range of motion, Cardiovascular:Heart rate regular rhythm, no murmur Lungs & Thorax: Bilateral breath sounds clear Abdomen: Bowel sounds normal, soft, no tenderness Skin: Warm, dry, no erythema Back: No tenderness, no CVA tenderness Extremities: 2+ edema bilateral LE's Neurologic: Alert and oriented X 3 Psychologic: Affect normal Current Patient Data Vital Signs Vital Signs Date Time Temp Pulse Resp B/P (MAP) Pulse Ox O2 Delivery O2 Flow Rate FiO2 01/26/18 01:41 97.9 70 18 150/97 (114) 93 Room Air 97.9 EKG EKG [] Radiology/Procedures Radiology/Procedures [] Course & Med Decision Making Course & Med Decision Making Pertinent Labs and Imaging studies reviewed. (See chart for details) Patient is evaluated in the emergency department initially for admission and dialysis. He does have some lower extremity edema but otherwise no acute complaints. We'll check basic labs and admit the patient for dialysis. 05:00: Patient admitted to the hospitalist service for dialysis. Bridge orders are placed. Nephrology consult is requested. No acute findings on lab panel. No acute events during the ED course. Dragon Disclaimer Dragon Disclaimer This electronic medical record was generated, in whole or in part, using a voice recognition dictation system. Departure Departure Referrals: NO PCP (PCP) JESE BONILLA DO Jan 26, 2018 03:07
[2018-01-26] MEDS ORDERED: ONDANSETRON PF 4 MG/2 ML VIAL. IV PRN (03:15)
[2018-01-26] MEDS ORDERED: ACETAMINOPHEN 325 MG TABLET. PO PRN (03:15)
[2018-01-26 03:22] LABS: % BANDS 1 % (0-9); % EOS 1 % (0-5); % LYMPHS 14 % (24-48); % MONOS 6 % (0-10); % SEGS 78 % (35-66); HYPOCHROMIA SLIGHT; PLT ESTIMATE ADEQUATE (ADEQUATE); POIKILOCYTOSIS MARKED
[2018-01-26 03:23] LABS: ANISOCYTOSIS MARKED; BIZZARE CELLS FEW; MICROCYTOSIS SLIGHT; OVALOCYTES FEW; SCHISTOCYTES FEW
[2018-01-26 07:00] VITALS: BP 141/100
[2018-01-26 11:00] VITALS: BP 160/120
--- NOTE | 2018-01-26 11:53 | HP ---
ADMIT DATE: 01/26/2018 CHIEF COMPLAINT: Dialysis problem. HISTORY OF PRESENT ILLNESS: The patient is a pleasant 52-year-old male who is on dialysis. He is well known to our service. He is having problems getting his Medicaid established, so he comes in to be dialyzed periodically. He also complains of some pain, rates it at 7/10. He states it has been about a week since he dialyzed. He has had some shortness of breath and swelling. While in the ER, he was noted to have azotemia with BUN of 75 and a creatinine of 7.7. I have discussed the case with the ER physician. We are going to admit the patient and get him dialyzed. He is also in heart failure with a BNP level of 57,000. PAST MEDICAL HISTORY: End-stage renal disease, on dialysis; volume overload; CHF; asthma; stroke; hypertension; chronic pain; left arm fistula but that has been repaired and removed. ALLERGIES: LISINOPRIL. FAMILY HISTORY: Diabetes. SOCIAL HISTORY: Does not drink, smoke or take drugs. MEDICATIONS: Reviewed, please refer to the MRAD. REVIEW OF SYSTEMS: GENERAL: No history of weight change, weakness or fevers. SKIN: No bruising, hair changes or rashes. EYES: No blurred, double or loss of vision. NOSE AND THROAT: No history of nosebleeds, hoarseness or sore throat. HEART: No history of palpitations, chest pain or shortness of breath on exertion. LUNGS: Denies cough, hemoptysis, wheezing or shortness of breath. GASTROINTESTINAL: Denies changes in appetite, nausea, vomiting, diarrhea or constipation. GENITOURINARY: No history of frequency, urgency, hesitancy or nocturia. NEUROLOGIC: Denies history of numbness, tingling, tremor or weakness. PSYCHIATRIC: No history of panic, anxiety or depression. ENDOCRINE: No history of heat or cold intolerance, polyuria or polydipsia. EXTREMITIES: He complains of pain. PHYSICAL EXAMINATION: VITAL SIGNS: Temperature afebrile, pulse 92, respirations 18, blood pressure 144/95. GENERAL: He was sleeping, he awakens. He is very weak. HEART: Normal S1, S2. LUNGS: Fine crackles. ABDOMEN: Soft. EXTREMITIES: 1+ edema. SKIN: No rashes. ENDOCRINE: No thyromegaly. LYMPHATICS: No cervical nodes. HEMATOPOIETIC: No bruising. LABORATORY DATA: BUN 75, creatinine 7.7. Hemoglobin is 9.6. ASSESSMENT AND PLAN: Renal failure in a middle-aged male who needs dialysis, who is not able to get dialysis just yet on a regular basis because of his insurance issues. We are going to admit him and get him dialyzed. Consult Nephrology. Continue home meds. Frequent labs, PT, OT. ENRICO GUAN DO DR: YODIT/savannah JOB#: [id number] / [id number]
[2018-01-26] MEDS ORDERED: IV NORMAL SALINE 1000ML BAG 1,000 ML IV PRN (12:12)
[2018-01-26] MEDS ORDERED: ACETAMINOPHEN 500 MG TABLET PO PRN (12:15)
[2018-01-26] MEDS ORDERED: DIALYSIS PATIENT. MC PRN (12:15)
[2018-01-26] MEDS ORDERED: ALBUMIN HUMAN 25% 200 ML IV PRN (12:15)
[2018-01-26] MEDS ORDERED: diphenhydrAMINE 50 MG/ML VIAL IV PRN ×2 (12:15)
--- NOTE | 2018-01-26 14:09 | PDOC2 ---
CONSULT Date of Consult Date of Consult DATE: 01/26/18 TIME: 14:06 Reason for Consult Reason for Consult: ESRd, Non complaint with Dialysis and Meds Source Source: Chart review, Patient History of Present Illness Reason for Visit: Patient is a 52 year old AAM who presents for admission and dialysis. The patient has not had medicated established until very recently. Because of this, his only means to attain dialysis was by coming to the emergency department and checking in to the hospital as an inpatient. He last dialyzed over a week ago. Patient presents today requesting admission for dialysis. He does have some signs of fluid overload with some intermittent shortness of breath. He also has some lower extremity edema. He denies chest pain. He denies any acute complaints otherwise this evening. He is having problems getting his Medicaid established, so he comes in to be dialyzed periodically. He also complains of some pain, rates it at 7/10. He states it has been about a week since he dialyzed. He has had some shortness of breath and swelling. BNP level of 57,000. Past Medical History Cardiovascular: HTN Pulmonary: Asthma, COPD CENTRAL NERVOUS SYSTEM: CVA GI: Gastritis Heme/Onc: Anemia NOS Psych: Anxiety Rheumatologic: Other Renal/: Chronic renal failure Endocrine: Hyperparathyroidism Past Surgical History Past Surgical History: Hernia Repair, Other Family History Family History: Hypertension, Stroke Social History ALCOHOL: none Drugs: None Lives: with Family Current Medications Current Medications Current Medications Ondansetron HCl (Zofran) 4 mg PRN Q8HRS PRN IV NAUSEA/VOMITING 1ST CHOICE; Start 01/26/18 at 03:15; Stop 01/27/18 at 03:14 Acetaminophen (Tylenol) 650 mg PRN Q4HRS PRN PO FEVER; Start 01/26/18 at 03:15 ; Stop 01/27/18 at 03:14 Sodium Chloride 1,000 ml @ 1,000 mls/hr Q1H PRN IV hypotension; Start at 12:12; Stop 01/26/18 at 18:11 Albumin Human 200 ml @ 200 mls/hr 1X PRN PRN IV Hypotension; Start 01/26/18 at 12:15; Stop 01/26/18 at 18:14 Acetaminophen (Tylenol) 500 mg 1X PRN PRN PO MILD PAIN / TEMP; Start 01/26/18 at 12:15; Stop 01/26/18 at 19:00 Diphenhydramine HCl (Benadryl) 25 mg 1X PRN PRN IV ITCHING; Start 01/26/18 at 12:15; Stop 01/26/18 at 19:00 Diphenhydramine HCl (Benadryl) 25 mg 1X PRN PRN IV ITCHING; Start 01/26/18 at 12:15; Stop 01/26/18 at 19:00 Info (PHARMACY MONITORING -- do not chart) 1 each PRN DAILY PRN MC SEE COMMENTS ; Start 01/26/18 at 12:15 Active Scripts Active Aspirin Ec (Aspirin) 325 Mg Tablet.dr 325 Mg PO DAILYWBKFT 30 Days Reported Amlodipine Besylate 10 Mg Tablet 10 Mg PO DAILY Carvedilol 12.5 Mg Tablet 12.5 Mg PO BIDWMEALS Hydralazine Hcl 50 Mg Tablet 1 Tab PO TID Clonidine Hcl 0.1 Mg Tablet 0.1 Mg PO TID Allergies Allergies: Coded Allergies: lisinopril (Verified Allergy, Severe, Swelling, 06/01/17) I S O L A T I O N *CONTACT* (Verified Allergy, Unknown, 01/17/18) +MRSA nares 01/15/18 ROS Review of System As per HPI Physical Exam Physical Exam GENERAL: NAD HEENT- OM moist neck supple HEART: Normal S1, S2. LUNGS: Fine crackles. ABDOMEN: Soft. EXTREMITIES: 1+ edema, AVF Lt + SKIN: No rashes. No gonzalez Neuro Grossly normal Vital Signs Vital Signs Date Time Temp Pulse Resp B/P (MAP) Pulse Ox O2 Delivery O2 Flow Rate FiO2 01/26/18 11:00 97.8 77 20 160/120 (133) 94 Room Air 97.8 Assessment & Plan ESRD- On HD , access AVF Non compliant with HD and meds Was getting HD at [facility] thru ER as no insurance () Hospitalized earlier this month reporting Last Dialysis in [place] approx 2 weeks back Today reports last dialysis approx 1 week back, Seen on Dialysis Today, tolerating well , continue as Ordered - dw DRN Volume Overload - Mild HD today with UF HTN - Hospitalized with [facility] recently was on Cardene drip, just dced BP High Non compliance with meds - Hydralazine, Amlodipine, coreg, clonidine All meds were reviewed /reconciled in October on HD and again during recent hospitalization Anemia- his Tsat were very low Recommended IV Fe but Pt non compliant with appts 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 Pt states he has medicaid , will need to be set up for OP Dialysis by Labs Labs Laboratory Tests Test 01/26/18 02:40 White Blood Count 5.7 x10^3/uL (4.0-11.0) Red Blood Count 3.90 x10^6/uL (4.30-5.70) Hemoglobin 9.6 g/dL (13.0-17.5) Hematocrit 28.9 % (39.0-53.0) Mean Corpuscular Volume 74 fL (79-100) Mean Corpuscular Hemoglobin 25 pg (25-35) Mean Corpuscular Hemoglobin Concent 33 g/dL (31-37) Red Cell Distribution Width 26.2 % (11.5-14.5) Platelet Count 317 x10^3/uL (140-400) Neutrophils (%) (Auto) 65 % (31-73) Lymphocytes (%) (Auto) 22 % (24-48) Monocytes (%) (Auto) 10 % (0-9) Eosinophils (%) (Auto) 2 % (0-3) Basophils (%) (Auto) 2 % (0-3) Neutrophils # (Auto) 3.7 x10^3uL (1.8-7.7) Lymphocytes # (Auto) 1.3 x10^3/uL (1.0-4.8) Monocytes # (Auto) 0.5 x10^3/uL (0.0-1.1) Eosinophils # (Auto) 0.1 x10^3/uL (0.0-0.7) Basophils # (Auto) 0.1 x10^3/uL (0.0-0.2) Segmented Neutrophils % 78 % (35-66) Band Neutrophils % 1 % (0-9) Lymphocytes % 14 % (24-48) Monocytes % 6 % (0-10) Eosinophils % 1 % (0-5) Platelet Estimate Adequate (ADEQUATE) Hypochromasia Slight Poikilocytosis Marked Anisocytosis Marked Microcytosis Slight Ovalocytes Few Crenated Cell Present Schistocytes Few RBC Morphology Bizarre Forms Few Sodium Level 139 mmol/L (136-145) Potassium Level 4.4 mmol/L (3.5-5.1) Chloride Level 103 mmol/L (98-107) Carbon Dioxide Level 20 mmol/L (21-32) Anion Gap 16 (6-14) Blood Urea Nitrogen 75 mg/dL (8-26) Creatinine 7.7 mg/dL (0.7-1.3) Estimated GFR (Cockcroft-Gault) 9.0 Glucose Level 104 mg/dL (70-99) Calcium Level 8.7 mg/dL (8.5-10.1) TT-Htm-Y-Type Natriuretic Peptide 56014 pg/mL (0-124) Laboratory Tests Test 01/26/18 02:40 White Blood Count 5.7 x10^3/uL (4.0-11.0) Red Blood Count 3.90 x10^6/uL (4.30-5.70) Hemoglobin 9.6 g/dL (13.0-17.5) Hematocrit 28.9 % (39.0-53.0) Mean Corpuscular Volume 74 fL (79-100) Mean Corpuscular Hemoglobin 25 pg (25-35) Mean Corpuscular Hemoglobin Concent 33 g/dL (31-37) Red Cell Distribution Width 26.2 % (11.5-14.5) Platelet Count 317 x10^3/uL (140-400) Neutrophils (%) (Auto) 65 % (31-73) Lymphocytes (%) (Auto) 22 % (24-48) Monocytes (%) (Auto) 10 % (0-9) Eosinophils (%) (Auto) 2 % (0-3) Basophils (%) (Auto) 2 % (0-3) Neutrophils # (Auto) 3.7 x10^3uL (1.8-7.7) Lymphocytes # (Auto) 1.3 x10^3/uL (1.0-4.8) Monocytes # (Auto) 0.5 x10^3/uL (0.0-1.1) Eosinophils # (Auto) 0.1 x10^3/uL (0.0-0.7) Basophils # (Auto) 0.1 x10^3/uL (0.0-0.2) Segmented Neutrophils % 78 % (35-66) Band Neutrophils % 1 % (0-9) Lymphocytes % 14 % (24-48) Monocytes % 6 % (0-10) Eosinophils % 1 % (0-5) Platelet Estimate Adequate (ADEQUATE) Hypochromasia Slight Poikilocytosis Marked Anisocytosis Marked Microcytosis Slight Ovalocytes Few Crenated Cell Present Schistocytes Few RBC Morphology Bizarre Forms Few Sodium Level 139 mmol/L (136-145) Potassium Level 4.4 mmol/L (3.5-5.1) Chloride Level 103 mmol/L (98-107) Carbon Dioxide Level 20 mmol/L (21-32) Anion Gap 16 (6-14) Blood Urea Nitrogen 75 mg/dL (8-26) Creatinine 7.7 mg/dL (0.7-1.3) Estimated GFR (Cockcroft-Gault) 9.0 Glucose Level 104 mg/dL (70-99) Calcium Level 8.7 mg/dL (8.5-10.1) TP-Qas-V-Type Natriuretic Peptide 36269 pg/mL (0-124) Review All relevant outside records, renal labs, imaging studies, telemetry/EKG's were reviewed. MAGDIEL VOGEL MD Jan 26, 2018 14:09
[2018-01-26 19:00] VITALS: BP 142/90
[2018-01-26] MEDS: ASPIRIN ENTERIC COATED 325 MG TABLET.DR. PO SCH (19:03)
[2018-01-26] MEDS: CARVEDILOL 12.5 MG TABLET. PO SCH (19:03)
[2018-01-26] MEDS: cloNIDine HCL 0.1 MG TABLET PO SCH (20:43)
[2018-01-26] MEDS: HYDROcodone/APAP 5/325MG 1 TAB TABLET PO PRN (21:21)
[2018-01-26 23:00] VITALS: BP 119/76
[2018-01-27 03:00] VITALS: BP 137/92
[2018-01-27 07:00] VITALS: BP 176/110
[2018-01-27] MEDS: HYDROcodone/APAP 5/325MG 1 TAB TABLET PO PRN (08:34)
[2018-01-27] MEDS: amLODIPine BESYLATE 10 MG TABLET PO SCH (08:34)
[2018-01-27] MEDS: cloNIDine HCL 0.1 MG TABLET PO SCH ×3 (08:35→20:15)
[2018-01-27] MEDS: ASPIRIN ENTERIC COATED 325 MG TABLET.DR. PO SCH (08:35)
[2018-01-27] MEDS: CARVEDILOL 12.5 MG TABLET. PO SCH ×2 (08:36→17:27)
--- NOTE | 2018-01-27 08:57 | RAD ---
Portable chest, 01/26/2018: HISTORY: Renal failure Comparison is made to a study from 01/15/2018. The heart is enlarged. The pulmonary vascularity is normal. The left base has partially cleared. No right lung infiltrate is seen. There is no evidence of pleural fluid. Multiple surgical fixation devices are again noted in the lower cervical spine. IMPRESSION: 1. Resolving mild left basilar atelectasis/infiltrate. 2. No new abnormality is detected. Electronically signed by: Dominick Prajapati MD (01/27/2018 8:54 AM) [facility]
[2018-01-27] MEDS ORDERED: ACETAMINOPHEN 325 MG TABLET. PO PRN (09:00)
[2018-01-27] MEDS ORDERED: DOCUSATE SODIUM 100 MG CAPSULE. PO PRN (09:00)
[2018-01-27] MEDS ORDERED: ALBUTEROL SULFATE 2.5 MG/3 ML NEBU. NEB PRN (09:00)
[2018-01-27] MEDS ORDERED: traMADol 50 MG TABLET PO PRN (09:00)
[2018-01-27] MEDS ORDERED: LABETALOL 20 MG/4 ML DISP.SYRIN. IVP PRN ×2 (09:00→12:45)
[2018-01-27] MEDS ORDERED: ONDANSETRON PF 4 MG/2 ML VIAL. IV PRN (09:00)
[2018-01-27] MEDS ORDERED: MORPHINE SULFATE 2 MG/ML VIAL. IV PRN (09:00)
[2018-01-27 11:00] VITALS: BP 123/77
[2018-01-27] MEDS: ALPRAZolam 0.25 MG TABLET PO PRN (11:14)
--- NOTE | 2018-01-27 12:24 | PDOC ---
SUBJECTIVE ROS Stable OBJECTIVE Vital Signs Vital Signs Date Time Temp Pulse Resp B/P (MAP) Pulse Ox O2 Delivery O2 Flow Rate FiO2 01/27/18 09:34 18 Room Air 01/27/18 08:36 75 184/113 01/27/18 07:00 97.7 98 97.7 I & 0 Intake and Output 01/27/18 07:00 Intake Total 600 ml Output Total 0 ml Balance 600 ml Intake Oral 600 ml Output Urine Total 0 ml # Voids 2 PHYSICAL EXAM Physical Exam GENERAL: NAD HEENT- OM moist neck supple HEART: Normal S1, S2. LUNGS: Fine crackles. ABDOMEN: Soft. EXTREMITIES: 1+ edema, AVF Lt + SKIN: No rashes. No gonzalez Neuro Grossly normal DIAGNOSIS/ASSESSMENT Assessment & Plan ESRD- On HD , access AVF Non compliant with HD and meds Was getting HD at [facility] thru ER as no insurance (September/October) Hospitalized earlier this month reporting Last Dialysis in [place] approx 2 weeks back Dialyzed yesterday (reported last approx 1 week back) Will schedule MWF while Hospitalized HTN - Hospitalized with [facility] recently was on Cardene drip, just dced BP High Non compliance with meds - Hydralazine, Amlodipine, coreg, clonidine All meds were reviewed /reconciled in October on HD and again during recent hospitalization Anemia- his Tsat were very low Recommended IV Fe but Pt non compliant with appts SW on board -[facility] OP chair time pending. COMMENT/RELEVANT DATA Meds Current Medications Medications (Trade) Dose Ordered Sig/Sascha Start Time Stop Time Status Last Admin Dose Admin Acetaminophen (Tylenol) 650 mg PRN Q6HRS PRN 01/27/18 09:00 Acetaminophen/ Hydrocodone Bitart (Lortab 5/325) 1 tab PRN Q6HRS PRN 01/26/18 21:15 01/27/18 08:34 1 TAB Albumin Human 200 ml @ 200 mls/hr 1X PRN PRN 01/26/18 12:15 01/26/18 18:14 DC Albuterol Sulfate (Ventolin Neb Soln) 2.5 mg PRN Q4HRS PRN 01/27/18 09:00 Alprazolam (Xanax) 0.25 mg PRN BID PRN 01/27/18 11:15 01/27/18 11:14 0.25 MG Amlodipine Besylate (Norvasc) 10 mg DAILY 01/27/18 09:00 01/27/18 08:34 10 MG Aspirin (Ecotrin) 325 mg DAILYWBKFT 01/26/18 17:00 01/27/18 08:35 325 MG Carvedilol (Coreg) 12.5 mg BIDWMEALS 01/26/18 17:00 01/27/18 08:36 12.5 MG Clonidine HCl (Catapres) 0.1 mg TID 01/26/18 21:00 01/27/18 08:35 0.1 MG Diphenhydramine HCl (Benadryl) 25 mg 1X PRN PRN 01/26/18 12:15 01/26/18 19:00 DC Docusate Sodium (Colace) 100 mg PRN DAILY PRN 01/27/18 09:00 Hydralazine HCl (Apresoline) 50 mg TID 01/26/18 16:00 01/27/18 08:36 50 MG Info (PHARMACY MONITORING -- do not chart) 1 each PRN DAILY PRN 01/26/18 12:15 Labetalol HCl (Normodyne Iv Push) 20 mg PRN Q2HR PRN 01/27/18 09:00 Morphine Sulfate (Morphine Sulfate) 2 mg PRN Q2HR PRN 01/27/18 09:00 Ondansetron HCl (Zofran) 4 mg PRN Q6HRS PRN 01/27/18 09:00 Sodium Chloride 1,000 ml @ 1,000 mls/hr Q1H PRN 01/26/18 12:12 01/26/18 18:11 DC Tramadol HCl (Ultram) 50 mg PRN Q6HRS PRN 01/27/18 09:00 Lab Laboratory Tests Test 01/26/18 14:15 Hepatitis B Surface Antigen Nonreactive (Nonreactive) Hepatitis B Surface Antibody Reactive Hepatitis B Core Total Antibody Negative (Negative) Results All relevant outside records, renal labs, imaging studies, telemetry/EKG's were reviewed. MAGDIEL VOGEL MD Jan 27, 2018 12:24
--- NOTE | 2018-01-27 12:49 | PDOC ---
PROGRESS NOTES Chief Complaint Chief Complaint End-stage renal disease, on dialysis; volume overload; CHF stable asthma stable stroke wo neurologic deficit hypertension; chronic pain; left arm fistula anxiety non compliance copd stable plan: fu with renal, cont HD MWF sw to set up outpt HD, pt said has Insurance now cont multiple HTn meds, add labetolol iv prn xanax prn dvt ppx albuterol prn History of Present Illness History of Present Illness ROS: no fever, chills, sob or chest pain no sob, c/o bl leg edema ,slightly better 1+ Vitals Vitals Vital Signs Date Time Temp Pulse Resp B/P (MAP) Pulse Ox O2 Delivery O2 Flow Rate FiO2 01/27/18 09:34 18 Room Air 01/27/18 08:36 75 184/113 01/27/18 07:00 97.7 98 97.7 Physical Exam General: Alert Heart: Regular rate, Normal S1, Normal S2 Lungs: Clear Abdomen: Normal bowel sounds, Soft, Other (mild distended) Extremities: No clubbing, No cyanosis, Other (1+ edema) Skin: No rashes Labs LABS Laboratory Tests Test 01/26/18 14:15 Hepatitis B Surface Antigen Nonreactive (Nonreactive) Hepatitis B Surface Antibody Reactive Hepatitis B Core Total Antibody Negative (Negative) Comment Review of Relevant I have reviewed the following items benjamin (where applicable) has been applied. Labs Laboratory Tests Test 01/26/18 02:40 01/26/18 05:00 01/26/18 14:15 White Blood Count 5.7 x10^3/uL (4.0-11.0) Red Blood Count 3.90 x10^6/uL (4.30-5.70) Hemoglobin 9.6 g/dL (13.0-17.5) Hematocrit 28.9 % (39.0-53.0) Mean Corpuscular Volume 74 fL (79-100) Mean Corpuscular Hemoglobin 25 pg (25-35) Mean Corpuscular Hemoglobin Concent 33 g/dL (31-37) Red Cell Distribution Width 26.2 % (11.5-14.5) Platelet Count 317 x10^3/uL (140-400) Neutrophils (%) (Auto) 65 % (31-73) Lymphocytes (%) (Auto) 22 % (24-48) Monocytes (%) (Auto) 10 % (0-9) Eosinophils (%) (Auto) 2 % (0-3) Basophils (%) (Auto) 2 % (0-3) Neutrophils # (Auto) 3.7 x10^3uL (1.8-7.7) Lymphocytes # (Auto) 1.3 x10^3/uL (1.0-4.8) Monocytes # (Auto) 0.5 x10^3/uL (0.0-1.1) Eosinophils # (Auto) 0.1 x10^3/uL (0.0-0.7) Basophils # (Auto) 0.1 x10^3/uL (0.0-0.2) Segmented Neutrophils % 78 % (35-66) Band Neutrophils % 1 % (0-9) Lymphocytes % 14 % (24-48) Monocytes % 6 % (0-10) Eosinophils % 1 % (0-5) Platelet Estimate Adequate (ADEQUATE) Hypochromasia Slight Poikilocytosis Marked Anisocytosis Marked Microcytosis Slight Ovalocytes Few Crenated Cell Present Schistocytes Few RBC Morphology Bizarre Forms Few Sodium Level 139 mmol/L (136-145) Potassium Level 4.4 mmol/L (3.5-5.1) Chloride Level 103 mmol/L (98-107) Carbon Dioxide Level 20 mmol/L (21-32) Anion Gap 16 (6-14) Blood Urea Nitrogen 75 mg/dL (8-26) Creatinine 7.7 mg/dL (0.7-1.3) Estimated GFR (Cockcroft-Gault) 9.0 Glucose Level 104 mg/dL (70-99) Calcium Level 8.7 mg/dL (8.5-10.1) HP-Ohx-H-Type Natriuretic Peptide 44279 pg/mL (0-124) Nasal Screen MRSA (PCR) Positive (Negative) Hepatitis B Surface Antigen Nonreactive (Nonreactive) Hepatitis B Surface Antibody Reactive Hepatitis B Core Total Antibody Negative (Negative) Laboratory Tests Test 01/26/18 14:15 Hepatitis B Surface Antigen Nonreactive (Nonreactive) Hepatitis B Surface Antibody Reactive Hepatitis B Core Total Antibody Negative (Negative) Medications Current Medications Ondansetron HCl (Zofran) 4 mg PRN Q8HRS PRN IV NAUSEA/VOMITING 1ST CHOICE; Start 01/26/18 at 03:15; Stop 01/27/18 at 03:14; Status DC Acetaminophen (Tylenol) 650 mg PRN Q4HRS PRN PO FEVER Last administered on at 20:43; Start 01/26/18 at 03:15; Stop 01/27/18 at 03:14; Status DC Sodium Chloride 1,000 ml @ 1,000 mls/hr Q1H PRN IV hypotension; Start at 12:12; Stop 01/26/18 at 18:11; Status DC Albumin Human 200 ml @ 200 mls/hr 1X PRN PRN IV Hypotension; Start 01/26/18 at 12:15; Stop 01/26/18 at 18:14; Status DC Acetaminophen (Tylenol) 500 mg 1X PRN PRN PO MILD PAIN / TEMP; Start 01/26/18 at 12:15; Stop 01/26/18 at 19:00; Status DC Diphenhydramine HCl (Benadryl) 25 mg 1X PRN PRN IV ITCHING; Start 01/26/18 at 12:15; Stop 01/26/18 at 19:00; Status DC Diphenhydramine HCl (Benadryl) 25 mg 1X PRN PRN IV ITCHING; Start 01/26/18 at 12:15; Stop 01/26/18 at 19:00; Status DC Info (PHARMACY MONITORING -- do not chart) 1 each PRN DAILY PRN MC SEE COMMENTS ; Start 01/26/18 at 12:15 Amlodipine Besylate (Norvasc) 10 mg DAILY PO Last administered on 01/27/18at 08 :34; Start 01/27/18 at 09:00 Aspirin (Ecotrin) 325 mg DAILYWBKFT PO Last administered on 01/27/18at 08:35; Start 01/26/18 at 17:00 Carvedilol (Coreg) 12.5 mg BIDWMEALS PO Last administered on 01/27/18at 08:36; Start 01/26/18 at 17:00 Clonidine HCl (Catapres) 0.1 mg TID PO Last administered on 01/27/18at 08:35; Start 01/26/18 at 21:00 Hydralazine HCl (Apresoline) 50 mg TID PO Last administered on 01/27/18at 08:36 ; Start 01/26/18 at 16:00 Acetaminophen/ Hydrocodone Bitart (Lortab 5/325) 1 tab PRN Q6HRS PRN PO SEVERE PAIN Last administered on 01/27/18at 08:34; Start 01/26/18 at 21:15 Acetaminophen (Tylenol) 650 mg PRN Q6HRS PRN PO FEVER; Start 01/27/18 at 09:00 Ondansetron HCl (Zofran) 4 mg PRN Q6HRS PRN IV NAUSEA/VOMITING; Start at 09:00 Morphine Sulfate (Morphine Sulfate) 2 mg PRN Q2HR PRN IV MODERATE TO SEVERE PAIN; Start 01/27/18 at 09:00 Tramadol HCl (Ultram) 50 mg PRN Q6HRS PRN PO MILD TO MODERATE PAIN; Start at 09:00 Docusate Sodium (Colace) 100 mg PRN DAILY PRN PO CONSTIPATION; Start 01/27/18 at 09:00 Labetalol HCl (Normodyne Iv Push) 20 mg PRN Q2HR PRN IVP HYPERTENSION, SEE COMMENTS; Start 01/27/18 at 09:00 Albuterol Sulfate (Ventolin Neb Soln) 2.5 mg PRN Q4HRS PRN NEB SHORTNESS OF BREATH; Start 01/27/18 at 09:00 Alprazolam (Xanax) 0.25 mg PRN BID PRN PO ANXIETY / AGITATION Last administered on 01/27/18at 11:14; Start 01/27/18 at 11:15 Active Scripts Active Aspirin Ec (Aspirin) 325 Mg Tablet. 325 Mg PO DAILYWBKFT 30 Days Reported Carvedilol 12.5 Mg Tablet 12.5 Mg PO BIDWMEALS Hydralazine Hcl 50 Mg Tablet 1 Tab PO TID Clonidine Hcl 0.1 Mg Tablet 0.1 Mg PO TID Vitals/I & O Vital Sign - Last 24 Hours 01/26/18 01/26/18 01/26/18 01/26/18 19:00 19:03 19:04 20:00 Temp 98.8 98.8 Pulse 83 87 87 Resp 18 B/P (MAP) 142/90 (107) 198/128 198/128 Pulse Ox 98 O2 Delivery Room Air Room Air 01/26/18 01/26/18 01/26/18 01/27/18 20:43 21:21 23:00 03:00 Temp 99.0 98.1 99.0 98.1 Pulse 81 79 Resp 18 18 18 B/P (MAP) 146/90 119/76 (90) 137/92 (107) Pulse Ox 95 99 O2 Delivery Room Air Room Air Room Air 01/27/18 01/27/18 01/27/18 01/27/18 07:00 08:00 08:34 08:34 Temp 97.7 97.7 Pulse 75 75 Resp 18 20 B/P (MAP) 176/110 (132) 184/113 Pulse Ox 98 O2 Delivery Room Air Room Air Room Air 01/27/18 01/27/18 01/27/18 01/27/18 08:35 08:36 08:36 09:34 Pulse 75 75 75 Resp 18 B/P (MAP) 184/113 184/113 184/113 O2 Delivery Room Air Intake and Output 01/26/18 01/26/18 01/27/18 15:00 23:00 07:00 Intake Total 360 ml 240 ml Output Total 0 ml Balance 360 ml 240 ml DENIS ALLEN MD Jan 27, 2018 12:49
[2018-01-27] MEDS: HEPARIN for SUB-Q USE 5,000 UNIT/ML VIAL. SQ SCH ×2 (14:00→20:16)
[2018-01-27 15:00] VITALS: BP 122/82
[2018-01-27 19:00] VITALS: BP 130/92
[2018-01-27 23:05] VITALS: BP 151/100
[2018-01-28] MEDS: HEPARIN for SUB-Q USE 5,000 UNIT/ML VIAL. SQ SCH ×3 (03:44→22:00)
[2018-01-28 03:53] VITALS: BP 168/115
[2018-01-28] MEDS: ALPRAZolam 0.25 MG TABLET PO PRN ×2 (04:26→22:17)
[2018-01-28] MEDS: HYDROcodone/APAP 5/325MG 1 TAB TABLET PO PRN ×3 (04:29→22:17)
[2018-01-28 04:45] LABS: BASO # 0.1 x10^3/uL (0.0-0.2); BASO % 2 % (0-3); EOS # 0.1 x10^3/uL (0.0-0.7); EOS % 2 % (0-3); HEMATOCRIT 28.7 % (39.0-53.0); HEMOGLOBIN 9.5 g/dL (13.0-17.5); LYMPH # 1.5 x10^3/uL (1.0-4.8); LYMPH % 25 % (24-48); MEAN CORPUSCULAR HEMOGLOBIN 25 pg (25-35); MEAN CORPUSCULAR HGB CONC 33 g/dL (31-37); MEAN CORPUSCULAR VOLUME 74 fL (79-100); MONO # 0.6 x10^3/uL (0.0-1.1); MONO % 10 % (0-9); NEUT # 3.6 x10^3uL (1.8-7.7); NEUT % 61 % (31-73); PLATELET COUNT 253 x10^3/uL (140-400); RED BLOOD COUNT 3.86 x10^6/uL (4.30-5.70); RED CELL DISTRIBUTION WIDTH 26.6 % (11.5-14.5); WHITE BLOOD COUNT 5.9 x10^3/uL (4.0-11.0)
[2018-01-28 05:05] LABS: CALCIUM 8.2 mg/dL (8.5-10.1); CREATININE 5.3 mg/dL (0.7-1.3); GFR 13.8; POTASSIUM 4.2 mmol/L (3.5-5.1)
[2018-01-28 07:00] VITALS: BP 146/91
[2018-01-28] MEDS ORDERED: IV NORMAL SALINE 1000ML BAG 1,000 ML IV PRN (07:41)
[2018-01-28] MEDS ORDERED: ALBUMIN HUMAN 25% 200 ML IV PRN (07:45)
[2018-01-28] MEDS ORDERED: 0.9 % SODIUM CHLORIDE 10 ML DISP.SYRIN. IV PRN ×2 (07:45)
[2018-01-28] MEDS ORDERED: DIALYSIS PATIENT. MC PRN ×2 (07:45)
[2018-01-28] MEDS: cloNIDine HCL 0.1 MG TABLET PO SCH ×3 (09:00→20:42)
--- NOTE | 2018-01-28 10:49 | PDOC ---
PROGRESS NOTES Chief Complaint Chief Complaint End-stage renal disease, on dialysis; volume overload with bl leg edema CHF stable asthma stable stroke wo neurologic deficit hypertension; chronic pain; left arm fistula anxiety non compliance copd stable iron deficiency rectal bleeding , 2/2 hemarrhoids likely constipation plan: fu with renal, cont HD MWF sw to set up outpt HD, pt said has Insurance now cont multiple HTn meds, add labetolol iv prn xanax prn dvt ppx albuterol prn add lasix 40mg bid, add iron po add stool softner talked to nurse to make sure if renal needs to keep pt till we have outpt HD SETup talked to SW check fobt History of Present Illness History of Present Illness ROS: no fever, chills, sob or chest pain no sob, c/o bl leg edema 1 -2 + said BM every 3ds, hard yesterday, brown then wipe some bright red blood. no h/ o hemorrhoids. Hb stable at 9s Vitals Vitals Vital Signs Date Time Temp Pulse Resp B/P (MAP) Pulse Ox O2 Delivery O2 Flow Rate FiO2 01/28/18 08:00 Room Air 01/28/18 07:00 97.5 69 18 146/91 (109) 99 97.5 Physical Exam General: Alert Heart: Regular rate, Normal S1, Normal S2 Lungs: Clear Abdomen: Normal bowel sounds, Soft, Other (mild distended) Extremities: No clubbing, No cyanosis, Other (1+ edema) Skin: No rashes Labs LABS Laboratory Tests Test 01/28/18 03:20 White Blood Count 5.9 x10^3/uL (4.0-11.0) Red Blood Count 3.86 x10^6/uL (4.30-5.70) Hemoglobin 9.5 g/dL (13.0-17.5) Hematocrit 28.7 % (39.0-53.0) Mean Corpuscular Volume 74 fL (79-100) Mean Corpuscular Hemoglobin 25 pg (25-35) Mean Corpuscular Hemoglobin Concent 33 g/dL (31-37) Red Cell Distribution Width 26.6 % (11.5-14.5) Platelet Count 253 x10^3/uL (140-400) Neutrophils (%) (Auto) 61 % (31-73) Lymphocytes (%) (Auto) 25 % (24-48) Monocytes (%) (Auto) 10 % (0-9) Eosinophils (%) (Auto) 2 % (0-3) Basophils (%) (Auto) 2 % (0-3) Neutrophils # (Auto) 3.6 x10^3uL (1.8-7.7) Lymphocytes # (Auto) 1.5 x10^3/uL (1.0-4.8) Monocytes # (Auto) 0.6 x10^3/uL (0.0-1.1) Eosinophils # (Auto) 0.1 x10^3/uL (0.0-0.7) Basophils # (Auto) 0.1 x10^3/uL (0.0-0.2) Sodium Level 144 mmol/L (136-145) Potassium Level 4.2 mmol/L (3.5-5.1) Chloride Level 104 mmol/L (98-107) Carbon Dioxide Level 27 mmol/L (21-32) Anion Gap 13 (6-14) Blood Urea Nitrogen 45 mg/dL (8-26) Creatinine 5.3 mg/dL (0.7-1.3) Estimated GFR (Cockcroft-Gault) 13.8 Glucose Level 103 mg/dL (70-99) Calcium Level 8.2 mg/dL (8.5-10.1) Comment Review of Relevant I have reviewed the following items benjamin (where applicable) has been applied. Labs Laboratory Tests Test 01/26/18 14:15 01/28/18 03:20 Hepatitis B Surface Antigen Nonreactive (Nonreactive) Hepatitis B Surface Antibody Reactive Hepatitis B Core Total Antibody Negative (Negative) White Blood Count 5.9 x10^3/uL (4.0-11.0) Red Blood Count 3.86 x10^6/uL (4.30-5.70) Hemoglobin 9.5 g/dL (13.0-17.5) Hematocrit 28.7 % (39.0-53.0) Mean Corpuscular Volume 74 fL (79-100) Mean Corpuscular Hemoglobin 25 pg (25-35) Mean Corpuscular Hemoglobin Concent 33 g/dL (31-37) Red Cell Distribution Width 26.6 % (11.5-14.5) Platelet Count 253 x10^3/uL (140-400) Neutrophils (%) (Auto) 61 % (31-73) Lymphocytes (%) (Auto) 25 % (24-48) Monocytes (%) (Auto) 10 % (0-9) Eosinophils (%) (Auto) 2 % (0-3) Basophils (%) (Auto) 2 % (0-3) Neutrophils # (Auto) 3.6 x10^3uL (1.8-7.7) Lymphocytes # (Auto) 1.5 x10^3/uL (1.0-4.8) Monocytes # (Auto) 0.6 x10^3/uL (0.0-1.1) Eosinophils # (Auto) 0.1 x10^3/uL (0.0-0.7) Basophils # (Auto) 0.1 x10^3/uL (0.0-0.2) Sodium Level 144 mmol/L (136-145) Potassium Level 4.2 mmol/L (3.5-5.1) Chloride Level 104 mmol/L (98-107) Carbon Dioxide Level 27 mmol/L (21-32) Anion Gap 13 (6-14) Blood Urea Nitrogen 45 mg/dL (8-26) Creatinine 5.3 mg/dL (0.7-1.3) Estimated GFR (Cockcroft-Gault) 13.8 Glucose Level 103 mg/dL (70-99) Calcium Level 8.2 mg/dL (8.5-10.1) Laboratory Tests Test 01/28/18 03:20 White Blood Count 5.9 x10^3/uL (4.0-11.0) Red Blood Count 3.86 x10^6/uL (4.30-5.70) Hemoglobin 9.5 g/dL (13.0-17.5) Hematocrit 28.7 % (39.0-53.0) Mean Corpuscular Volume 74 fL (79-100) Mean Corpuscular Hemoglobin 25 pg (25-35) Mean Corpuscular Hemoglobin Concent 33 g/dL (31-37) Red Cell Distribution Width 26.6 % (11.5-14.5) Platelet Count 253 x10^3/uL (140-400) Neutrophils (%) (Auto) 61 % (31-73) Lymphocytes (%) (Auto) 25 % (24-48) Monocytes (%) (Auto) 10 % (0-9) Eosinophils (%) (Auto) 2 % (0-3) Basophils (%) (Auto) 2 % (0-3) Neutrophils # (Auto) 3.6 x10^3uL (1.8-7.7) Lymphocytes # (Auto) 1.5 x10^3/uL (1.0-4.8) Monocytes # (Auto) 0.6 x10^3/uL (0.0-1.1) Eosinophils # (Auto) 0.1 x10^3/uL (0.0-0.7) Basophils # (Auto) 0.1 x10^3/uL (0.0-0.2) Sodium Level 144 mmol/L (136-145) Potassium Level 4.2 mmol/L (3.5-5.1) Chloride Level 104 mmol/L (98-107) Carbon Dioxide Level 27 mmol/L (21-32) Anion Gap 13 (6-14) Blood Urea Nitrogen 45 mg/dL (8-26) Creatinine 5.3 mg/dL (0.7-1.3) Estimated GFR (Cockcroft-Gault) 13.8 Glucose Level 103 mg/dL (70-99) Calcium Level 8.2 mg/dL (8.5-10.1) Medications Current Medications Ondansetron HCl (Zofran) 4 mg PRN Q8HRS PRN IV NAUSEA/VOMITING 1ST CHOICE; Start 01/26/18 at 03:15; Stop 01/27/18 at 03:14; Status DC Acetaminophen (Tylenol) 650 mg PRN Q4HRS PRN PO FEVER Last administered on at 20:43; Start 01/26/18 at 03:15; Stop 01/27/18 at 03:14; Status DC Sodium Chloride 1,000 ml @ 1,000 mls/hr Q1H PRN IV hypotension; Start at 12:12; Stop 01/26/18 at 18:11; Status DC Albumin Human 200 ml @ 200 mls/hr 1X PRN PRN IV Hypotension; Start 01/26/18 at 12:15; Stop 01/26/18 at 18:14; Status DC Acetaminophen (Tylenol) 500 mg 1X PRN PRN PO MILD PAIN / TEMP; Start 01/26/18 at 12:15; Stop 01/26/18 at 19:00; Status DC Diphenhydramine HCl (Benadryl) 25 mg 1X PRN PRN IV ITCHING; Start 01/26/18 at 12:15; Stop 01/26/18 at 19:00; Status DC Diphenhydramine HCl (Benadryl) 25 mg 1X PRN PRN IV ITCHING; Start 01/26/18 at 12:15; Stop 01/26/18 at 19:00; Status DC Info (PHARMACY MONITORING -- do not chart) 1 each PRN DAILY PRN MC SEE COMMENTS ; Start 01/26/18 at 12:15; Status Cancel Amlodipine Besylate (Norvasc) 10 mg DAILY PO Last administered on 01/27/18at 08 :34; Start 01/27/18 at 09:00 Aspirin (Ecotrin) 325 mg DAILYWBKFT PO Last administered on 01/27/18at 08:35; Start 01/26/18 at 17:00 Carvedilol (Coreg) 12.5 mg BIDWMEALS PO Last administered on 01/27/18at 17:27; Start 01/26/18 at 17:00 Clonidine HCl (Catapres) 0.1 mg TID PO Last administered on 01/27/18at 20:15; Start 01/26/18 at 21:00 Hydralazine HCl (Apresoline) 50 mg TID PO Last administered on 01/27/18at 20:15 ; Start 01/26/18 at 16:00 Acetaminophen/ Hydrocodone Bitart (Lortab 5/325) 1 tab PRN Q6HRS PRN PO SEVERE PAIN Last administered on 01/28/18at 04:29; Start 01/26/18 at 21:15 Acetaminophen (Tylenol) 650 mg PRN Q6HRS PRN PO FEVER; Start 01/27/18 at 09:00 Ondansetron HCl (Zofran) 4 mg PRN Q6HRS PRN IV NAUSEA/VOMITING; Start at 09:00 Morphine Sulfate (Morphine Sulfate) 2 mg PRN Q2HR PRN IV MODERATE TO SEVERE PAIN; Start 01/27/18 at 09:00 Tramadol HCl (Ultram) 50 mg PRN Q6HRS PRN PO MILD TO MODERATE PAIN; Start at 09:00 Docusate Sodium (Colace) 100 mg PRN DAILY PRN PO CONSTIPATION; Start 01/27/18 at 09:00 Labetalol HCl (Normodyne Iv Push) 20 mg PRN Q2HR PRN IVP HYPERTENSION, SEE COMMENTS; Start 01/27/18 at 09:00 Albuterol Sulfate (Ventolin Neb Soln) 2.5 mg PRN Q4HRS PRN NEB SHORTNESS OF BREATH; Start 01/27/18 at 09:00 Alprazolam (Xanax) 0.25 mg PRN BID PRN PO ANXIETY / AGITATION Last administered on 01/28/18at 04:26; Start 01/27/18 at 11:15 Labetalol HCl (Normodyne Iv Push) 20 mg PRN Q2HR PRN IVP HYPERTENSION, SEE COMMENTS; Start 01/27/18 at 12:45; Status UNV Heparin Sodium (Porcine) (Heparin Sodium) 5,000 unit Q8HRS SQ ; Start 01/27/18 at 14:00 Sodium Chloride 1,000 ml @ 1,000 mls/hr Q1H PRN IV hypotension; Start at 07:41; Stop 01/28/18 at 13:40 Albumin Human 200 ml @ 200 mls/hr 1X PRN PRN IV Hypotension; Start 01/28/18 at 07:45; Stop 01/28/18 at 13:44 Sodium Chloride (Normal Saline Flush) 10 ml 1X PRN PRN IV AP catheter pack; Start 01/28/18 at 07:45; Stop 01/29/18 at 07:44 Sodium Chloride (Normal Saline Flush) 10 ml 1X PRN PRN IV [employer]GER catheter pack; Start 01/28/18 at 07:45; Stop 01/29/18 at 07:44 Info (PHARMACY MONITORING -- do not chart) 1 each PRN DAILY PRN MC SEE COMMENTS ; Start 01/28/18 at 07:45 Info (PHARMACY MONITORING -- do not chart) 1 each PRN DAILY PRN MC SEE COMMENTS ; Start 01/28/18 at 07:45; Status UNV Furosemide (Lasix) 40 mg BID92 PO ; Start 01/28/18 at 09:00 Ferrous Sulfate (Feosol) 325 mg DAILYWBKFT PO ; Start 01/28/18 at 09:00 Active Scripts Active Aspirin Ec (Aspirin) 325 Mg Tablet.dr 325 Mg PO DAILYWBKFT 30 Days Reported Carvedilol 12.5 Mg Tablet 12.5 Mg PO BIDWMEALS Hydralazine Hcl 50 Mg Tablet 1 Tab PO TID Clonidine Hcl 0.1 Mg Tablet 0.1 Mg PO TID Vitals/I & O Vital Sign - Last 24 Hours 01/27/18 01/27/18 01/27/18 01/27/18 11:00 13:15 14:15 14:15 Temp 97.9 97.9 Pulse 66 66 66 Resp 18 B/P (MAP) 123/77 (92) 123/77 123/77 Pulse Ox 96 96 O2 Delivery Room Air Room Air 01/27/18 01/27/18 01/27/18 01/27/18 15:00 17:27 19:00 20:00 Temp 96.6 97.7 96.6 97.7 Pulse 66 66 66 Resp 18 20 B/P (MAP) 122/82 (95) 122/82 130/92 (105) Pulse Ox 94 97 O2 Delivery Room Air Room Air Room Air 01/27/18 01/27/18 01/27/18 01/28/18 20:15 20:15 23:05 03:53 Temp 98.6 97.8 98.6 97.8 Pulse 65 69 Resp 20 20 B/P (MAP) 130/92 130/92 151/100 (117) 168/115 (132) Pulse Ox 97 97 O2 Delivery Room Air Room Air 01/28/18 01/28/18 01/28/18 01/28/18 04:29 05:29 07:00 08:00 Temp 97.5 97.5 Pulse 69 Resp 18 B/P (MAP) 146/91 (109) Pulse Ox 99 O2 Delivery Room Air Room Air Room Air Room Air Intake and Output 01/27/18 01/27/18 01/28/18 15:00 23:00 07:00 Intake Total 720 ml 300 ml Output Total 0 ml Balance 720 ml 300 ml 0 ml DENIS ALLEN MD Jan 28, 2018 10:49
[2018-01-28] MEDS ORDERED: MAGNESIUM HYDROXIDE 2,400 MG/30 ML ORAL.SUSP. PO PRN (11:00)
[2018-01-28 13:00] VITALS: BP 191/124
[2018-01-28] MEDS: DOCUSATE SODIUM 100 MG CAPSULE. PO SCH ×2 (13:37→20:43)
[2018-01-28] MEDS: SENNOSIDES/DOCUSATE 8.6/50MG TABLET. PO SCH ×2 (13:37→20:42)
[2018-01-28] MEDS: ASPIRIN ENTERIC COATED 325 MG TABLET.DR. PO SCH (13:39)
[2018-01-28] MEDS: FERROUS SULFATE 325 MG TABLET. PO SCH (13:39)
[2018-01-28] MEDS: CARVEDILOL 12.5 MG TABLET. PO SCH ×2 (13:39→17:18)
[2018-01-28] MEDS: FUROSEMIDE 40 MG TABLET. PO SCH ×2 (13:40→14:00)
[2018-01-28] MEDS: amLODIPine BESYLATE 10 MG TABLET PO SCH (13:40)
[2018-01-28 15:00] VITALS: BP 109/66
--- NOTE | 2018-01-28 15:46 | PDOC ---
SUBJECTIVE ROS Stable OBJECTIVE Vital Signs Vital Signs Date Time Temp Pulse Resp B/P (MAP) Pulse Ox O2 Delivery O2 Flow Rate FiO2 01/28/18 13:40 79 191/124 01/28/18 13:00 98.1 18 98 Room Air 98.1 I & 0 Intake and Output 01/28/18 07:00 Intake Total 1020 ml Output Total 0 ml Balance 1020 ml Intake Oral 1020 ml Output Urine Total 0 ml # Voids 1 PHYSICAL EXAM Physical Exam GENERAL: NAD HEENT- OM moist neck supple HEART: Normal S1, S2. LUNGS: Fine crackles. ABDOMEN: Soft. EXTREMITIES: 1+ edema, AVF Lt + SKIN: No rashes. No gonzalez Neuro Grossly normal DIAGNOSIS/ASSESSMENT Assessment & Plan ESRD- On HD , access AVF Non compliant with HD and meds Was getting HD at [facility] thru ER as no insurance () Hospitalized earlier this month as well Seen on Dialysis Today, tolerating well , continue as Ordered - dw DRN check PTH , phos in am HTN - Hospitalized with [facility] recently was on Cardene drip, just dced Non compliance with meds - Hydralazine, Amlodipine, coreg, clonidine may improve with Dialysis Anemia- his Tsat were very low Recommended IV Fe but Pt non compliant with appts Recheck Fe studies- Low in 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 set up for OP Dialysis by JOHNATH[facility] COMMENT/RELEVANT DATA Meds Current Medications Medications (Trade) Dose Ordered Sig/Sascha Start Time Stop Time Status Last Admin Dose Admin Acetaminophen (Tylenol) 650 mg PRN Q6HRS PRN 01/27/18 09:00 Acetaminophen/ Hydrocodone Bitart (Lortab 5/325) 1 tab PRN Q6HRS PRN 01/26/18 21:15 01/28/18 04:29 1 TAB Albumin Human 200 ml @ 200 mls/hr 1X PRN PRN 01/28/18 07:45 01/28/18 13:44 DC Albuterol Sulfate (Ventolin Neb Soln) 2.5 mg PRN Q4HRS PRN 01/27/18 09:00 Alprazolam (Xanax) 0.25 mg PRN BID PRN 01/27/18 11:15 01/28/18 04:26 0.25 MG Amlodipine Besylate (Norvasc) 10 mg DAILY 01/27/18 09:00 01/28/18 13:40 10 MG Aspirin (Ecotrin) 325 mg DAILYWBKFT 01/26/18 17:00 01/28/18 13:39 325 MG Carvedilol (Coreg) 12.5 mg BIDWMEALS 01/26/18 17:00 01/28/18 13:39 12.5 MG Clonidine HCl (Catapres) 0.1 mg TID 01/26/18 21:00 01/28/18 13:40 0.1 MG Diphenhydramine HCl (Benadryl) 25 mg 1X PRN PRN 01/26/18 12:15 01/26/18 19:00 DC Docusate Sodium (Colace) 100 mg BID 01/28/18 11:00 01/28/18 13:37 100 MG Ferrous Sulfate (Feosol) 325 mg DAILYWBKFT 01/28/18 09:00 01/28/18 13:39 325 MG Furosemide (Lasix) 40 mg BID92 01/28/18 09:00 01/28/18 13:40 40 MG Heparin Sodium (Porcine) (Heparin Sodium) 5,000 unit Q8HRS 01/27/18 14:00 Hydralazine HCl (Apresoline) 50 mg TID 01/26/18 16:00 01/28/18 13:39 50 MG Info (PHARMACY MONITORING -- do not chart) 1 each PRN DAILY PRN 01/28/18 07:45 UNV Labetalol HCl (Normodyne Iv Push) 20 mg PRN Q2HR PRN 01/27/18 12:45 UNV Magnesium Hydroxide (Milk Of Magnesia) 2,400 mg PRN Q12HR PRN 01/28/18 11:00 Morphine Sulfate (Morphine Sulfate) 2 mg PRN Q2HR PRN 01/27/18 09:00 Ondansetron HCl (Zofran) 4 mg PRN Q6HRS PRN 01/27/18 09:00 Senna/Docusate Sodium (Senna Plus) 1 tab BID 01/28/18 11:00 01/28/18 13:37 1 TAB Sodium Chloride (Normal Saline Flush) 10 ml 1X PRN PRN 01/28/18 07:45 01/29/18 07:44 Tramadol HCl (Ultram) 50 mg PRN Q6HRS PRN 01/27/18 09:00 Lab Laboratory Tests Test 01/28/18 03:20 White Blood Count 5.9 x10^3/uL (4.0-11.0) Red Blood Count 3.86 x10^6/uL (4.30-5.70) Hemoglobin 9.5 g/dL (13.0-17.5) Hematocrit 28.7 % (39.0-53.0) Mean Corpuscular Volume 74 fL (79-100) Mean Corpuscular Hemoglobin 25 pg (25-35) Mean Corpuscular Hemoglobin Concent 33 g/dL (31-37) Red Cell Distribution Width 26.6 % (11.5-14.5) Platelet Count 253 x10^3/uL (140-400) Neutrophils (%) (Auto) 61 % (31-73) Lymphocytes (%) (Auto) 25 % (24-48) Monocytes (%) (Auto) 10 % (0-9) Eosinophils (%) (Auto) 2 % (0-3) Basophils (%) (Auto) 2 % (0-3) Neutrophils # (Auto) 3.6 x10^3uL (1.8-7.7) Lymphocytes # (Auto) 1.5 x10^3/uL (1.0-4.8) Monocytes # (Auto) 0.6 x10^3/uL (0.0-1.1) Eosinophils # (Auto) 0.1 x10^3/uL (0.0-0.7) Basophils # (Auto) 0.1 x10^3/uL (0.0-0.2) Sodium Level 144 mmol/L (136-145) Potassium Level 4.2 mmol/L (3.5-5.1) Chloride Level 104 mmol/L (98-107) Carbon Dioxide Level 27 mmol/L (21-32) Anion Gap 13 (6-14) Blood Urea Nitrogen 45 mg/dL (8-26) Creatinine 5.3 mg/dL (0.7-1.3) Estimated GFR (Cockcroft-Gault) 13.8 Glucose Level 103 mg/dL (70-99) Calcium Level 8.2 mg/dL (8.5-10.1) Results All relevant outside records, renal labs, imaging studies, telemetry/EKG's were reviewed. MAGDIEL VOGEL MD Jan 28, 2018 15:46
[2018-01-28 19:00] VITALS: BP 109/68
[2018-01-28 23:03] VITALS: BP 113/69
[2018-01-29 03:05] VITALS: BP 133/91
[2018-01-29 05:31] LABS: BASO # 0.1 x10^3/uL (0.0-0.2); BASO % 2 % (0-3); EOS # 0.1 x10^3/uL (0.0-0.7); EOS % 2 % (0-3); HEMATOCRIT 27.7 % (39.0-53.0); LYMPH # 1.5 x10^3/uL (1.0-4.8); LYMPH % 27 % (24-48); MEAN CORPUSCULAR HEMOGLOBIN 24 pg (25-35); MEAN CORPUSCULAR HGB CONC 33 g/dL (31-37); MEAN CORPUSCULAR VOLUME 75 fL (79-100); MONO # 0.6 x10^3/uL (0.0-1.1); MONO % 10 % (0-9); NEUT # 3.3 x10^3uL (1.8-7.7); NEUT % 59 % (31-73); PLATELET COUNT 200 x10^3/uL (140-400); RED BLOOD COUNT 3.72 x10^6/uL (4.30-5.70); RED CELL DISTRIBUTION WIDTH 25.7 % (11.5-14.5); WHITE BLOOD COUNT 5.5 x10^3/uL (4.0-11.0)
[2018-01-29 05:45] LABS: GFR 19.1; POTASSIUM 3.8 mmol/L (3.5-5.1)
[2018-01-29] MEDS: HEPARIN for SUB-Q USE 5,000 UNIT/ML VIAL. SQ SCH ×3 (06:00→21:38)
[2018-01-29 06:05] LABS: PHOSPHORUS 3.2 mg/dL (2.6-4.7)
[2018-01-29 07:00] VITALS: BP 157/106
[2018-01-29] MEDS: CARVEDILOL 12.5 MG TABLET. PO SCH ×2 (08:09→17:27)
[2018-01-29] MEDS: FERROUS SULFATE 325 MG TABLET. PO SCH ×2 (08:09→17:27)
[2018-01-29] MEDS: ASPIRIN ENTERIC COATED 325 MG TABLET.DR. PO SCH (08:09)
[2018-01-29 08:19] LABS: PLT ESTIMATE ADEQUATE (ADEQUATE)
[2018-01-29 08:21] LABS: ANISOCYTOSIS MARKED; HYPOCHROMIA SLIGHT; MICROCYTOSIS SLIGHT; OVALOCYTES FEW; POIKILOCYTOSIS MARKED
[2018-01-29 08:22] LABS: SCHISTOCYTES FEW
[2018-01-29 08:23] LABS: POLYCHROMASIA SLIGHT
[2018-01-29 08:24] LABS: BIZZARE CELLS FEW
[2018-01-29] MEDS: amLODIPine BESYLATE 10 MG TABLET PO SCH (09:21)
[2018-01-29] MEDS: DOCUSATE SODIUM 100 MG CAPSULE. PO SCH ×2 (09:21→21:00)
[2018-01-29] MEDS: SENNOSIDES/DOCUSATE 8.6/50MG TABLET. PO SCH ×2 (09:21→21:00)
[2018-01-29] MEDS: FUROSEMIDE 40 MG TABLET. PO SCH ×2 (09:21→14:38)
[2018-01-29] MEDS: cloNIDine HCL 0.1 MG TABLET PO SCH ×3 (09:22→21:36)
[2018-01-29 11:00] VITALS: BP 112/77
[2018-01-29 13:07] LABS: FECAL OB PT NEGATIVE (NEG)
--- NOTE | 2018-01-29 13:10 | PDOC ---
PROGRESS NOTES Chief Complaint Chief Complaint End-stage renal disease, on dialysis; volume overload with bl leg edema CHF stable asthma stable stroke wo neurologic deficit hypertension; chronic pain; left arm fistula anxiety non compliance copd stable iron deficiency rectal bleeding , 2/2 hemarrhoids likely constipation plan: fu with renal, cont HD MWF sw to set up outpt HD, pt said has Insurance now cont multiple HTn meds, add labetolol iv prn xanax prn dvt ppx albuterol prn add lasix 40mg bid, add iron po add stool softner talked to nurse to make sure if renal needs to keep pt in hosp till we have outpt HD SETup, otherwise can dc home talked to SW check fobt add iron po History of Present Illness History of Present Illness ROS: no fever, chills, sob or chest pain no sob, c/o bl leg edema 1 -2 + said BM every 3ds, hard01/27, brown then wipe some bright red blood. no h/o hemorrhoids. Hb stable at 9s no bm so far Vitals Vitals Vital Signs Date Time Temp Pulse Resp B/P (MAP) Pulse Ox O2 Delivery O2 Flow Rate FiO2 01/29/18 11:00 97.9 59 18 112/77 (89) 98 Nasal Cannula 97.9 01/29/18 03:05 2.0 Physical Exam General: Alert Heart: Regular rate, Normal S1, Normal S2 Lungs: Clear Abdomen: Normal bowel sounds, Soft, Other (mild distended) Extremities: No clubbing, No cyanosis, Other (1+ edema) Skin: No rashes Labs LABS Laboratory Tests Test 01/29/18 04:45 01/29/18 12:46 White Blood Count 5.5 x10^3/uL (4.0-11.0) Red Blood Count 3.72 x10^6/uL (4.30-5.70) Hemoglobin 9.0 g/dL (13.0-17.5) Hematocrit 27.7 % (39.0-53.0) Mean Corpuscular Volume 75 fL (79-100) Mean Corpuscular Hemoglobin 24 pg (25-35) Mean Corpuscular Hemoglobin Concent 33 g/dL (31-37) Red Cell Distribution Width 25.7 % (11.5-14.5) Platelet Count 200 x10^3/uL (140-400) Neutrophils (%) (Auto) 59 % (31-73) Lymphocytes (%) (Auto) 27 % (24-48) Monocytes (%) (Auto) 10 % (0-9) Eosinophils (%) (Auto) 2 % (0-3) Basophils (%) (Auto) 2 % (0-3) Neutrophils # (Auto) 3.3 x10^3uL (1.8-7.7) Lymphocytes # (Auto) 1.5 x10^3/uL (1.0-4.8) Monocytes # (Auto) 0.6 x10^3/uL (0.0-1.1) Eosinophils # (Auto) 0.1 x10^3/uL (0.0-0.7) Basophils # (Auto) 0.1 x10^3/uL (0.0-0.2) Platelet Estimate Adequate (ADEQUATE) Polychromasia Slight Hypochromasia Slight Poikilocytosis Marked Anisocytosis Marked Microcytosis Slight Ovalocytes Few Crenated Cell Present Schistocytes Few RBC Morphology Bizarre Forms Few Sodium Level 143 mmol/L (136-145) Potassium Level 3.8 mmol/L (3.5-5.1) Chloride Level 105 mmol/L (98-107) Carbon Dioxide Level 30 mmol/L (21-32) Anion Gap 8 (6-14) Blood Urea Nitrogen 30 mg/dL (8-26) Creatinine 4.0 mg/dL (0.7-1.3) Estimated GFR (Cockcroft-Gault) 19.1 Glucose Level 89 mg/dL (70-99) Calcium Level 8.0 mg/dL (8.5-10.1) Phosphorus Level 3.2 mg/dL (2.6-4.7) Iron Level 26 ug/dL (65-175) Total Iron Binding Capacity 279 ug/dL (250-450) Iron Saturation 9 % (15-34) Ferritin 57 ng/mL (26-388) Stool Occult Blood Negative (NEG) Comment Review of Relevant I have reviewed the following items benjamin (where applicable) has been applied. Labs Laboratory Tests Test 01/28/18 03:20 01/29/18 04:45 01/29/18 12:46 White Blood Count 5.9 x10^3/uL (4.0-11.0) 5.5 x10^3/uL (4.0-11.0) Red Blood Count 3.86 x10^6/uL (4.30-5.70) 3.72 x10^6/uL (4.30-5.70) Hemoglobin 9.5 g/dL (13.0-17.5) 9.0 g/dL (13.0-17.5) Hematocrit 28.7 % (39.0-53.0) 27.7 % (39.0-53.0) Mean Corpuscular Volume 74 fL (79-100) 75 fL (79-100) Mean Corpuscular Hemoglobin 25 pg (25-35) 24 pg (25-35) Mean Corpuscular Hemoglobin Concent 33 g/dL (31-37) 33 g/dL (31-37) Red Cell Distribution Width 26.6 % (11.5-14.5) 25.7 % (11.5-14.5) Platelet Count 253 x10^3/uL (140-400) 200 x10^3/uL (140-400) Neutrophils (%) (Auto) 61 % (31-73) 59 % (31-73) Lymphocytes (%) (Auto) 25 % (24-48) 27 % (24-48) Monocytes (%) (Auto) 10 % (0-9) 10 % (0-9) Eosinophils (%) (Auto) 2 % (0-3) 2 % (0-3) Basophils (%) (Auto) 2 % (0-3) 2 % (0-3) Neutrophils # (Auto) 3.6 x10^3uL (1.8-7.7) 3.3 x10^3uL (1.8-7.7) Lymphocytes # (Auto) 1.5 x10^3/uL (1.0-4.8) 1.5 x10^3/uL (1.0-4.8) Monocytes # (Auto) 0.6 x10^3/uL (0.0-1.1) 0.6 x10^3/uL (0.0-1.1) Eosinophils # (Auto) 0.1 x10^3/uL (0.0-0.7) 0.1 x10^3/uL (0.0-0.7) Basophils # (Auto) 0.1 x10^3/uL (0.0-0.2) 0.1 x10^3/uL (0.0-0.2) Sodium Level 144 mmol/L (136-145) 143 mmol/L (136-145) Potassium Level 4.2 mmol/L (3.5-5.1) 3.8 mmol/L (3.5-5.1) Chloride Level 104 mmol/L (98-107) 105 mmol/L (98-107) Carbon Dioxide Level 27 mmol/L (21-32) 30 mmol/L (21-32) Anion Gap 13 (6-14) 8 (6-14) Blood Urea Nitrogen 45 mg/dL (8-26) 30 mg/dL (8-26) Creatinine 5.3 mg/dL (0.7-1.3) 4.0 mg/dL (0.7-1.3) Estimated GFR (Cockcroft-Gault) 13.8 19.1 Glucose Level 103 mg/dL (70-99) 89 mg/dL (70-99) Calcium Level 8.2 mg/dL (8.5-10.1) 8.0 mg/dL (8.5-10.1) Platelet Estimate Adequate (ADEQUATE) Polychromasia Slight Hypochromasia Slight Poikilocytosis Marked Anisocytosis Marked Microcytosis Slight Ovalocytes Few Crenated Cell Present Schistocytes Few RBC Morphology Bizarre Forms Few Phosphorus Level 3.2 mg/dL (2.6-4.7) Iron Level 26 ug/dL (65-175) Total Iron Binding Capacity 279 ug/dL (250-450) Iron Saturation 9 % (15-34) Ferritin 57 ng/mL (26-388) Stool Occult Blood Negative (NEG) Laboratory Tests Test 01/29/18 04:45 01/29/18 12:46 White Blood Count 5.5 x10^3/uL (4.0-11.0) Red Blood Count 3.72 x10^6/uL (4.30-5.70) Hemoglobin 9.0 g/dL (13.0-17.5) Hematocrit 27.7 % (39.0-53.0) Mean Corpuscular Volume 75 fL (79-100) Mean Corpuscular Hemoglobin 24 pg (25-35) Mean Corpuscular Hemoglobin Concent 33 g/dL (31-37) Red Cell Distribution Width 25.7 % (11.5-14.5) Platelet Count 200 x10^3/uL (140-400) Neutrophils (%) (Auto) 59 % (31-73) Lymphocytes (%) (Auto) 27 % (24-48) Monocytes (%) (Auto) 10 % (0-9) Eosinophils (%) (Auto) 2 % (0-3) Basophils (%) (Auto) 2 % (0-3) Neutrophils # (Auto) 3.3 x10^3uL (1.8-7.7) Lymphocytes # (Auto) 1.5 x10^3/uL (1.0-4.8) Monocytes # (Auto) 0.6 x10^3/uL (0.0-1.1) Eosinophils # (Auto) 0.1 x10^3/uL (0.0-0.7) Basophils # (Auto) 0.1 x10^3/uL (0.0-0.2) Platelet Estimate Adequate (ADEQUATE) Polychromasia Slight Hypochromasia Slight Poikilocytosis Marked Anisocytosis Marked Microcytosis Slight Ovalocytes Few Crenated Cell Present Schistocytes Few RBC Morphology Bizarre Forms Few Sodium Level 143 mmol/L (136-145) Potassium Level 3.8 mmol/L (3.5-5.1) Chloride Level 105 mmol/L (98-107) Carbon Dioxide Level 30 mmol/L (21-32) Anion Gap 8 (6-14) Blood Urea Nitrogen 30 mg/dL (8-26) Creatinine 4.0 mg/dL (0.7-1.3) Estimated GFR (Cockcroft-Gault) 19.1 Glucose Level 89 mg/dL (70-99) Calcium Level 8.0 mg/dL (8.5-10.1) Phosphorus Level 3.2 mg/dL (2.6-4.7) Iron Level 26 ug/dL (65-175) Total Iron Binding Capacity 279 ug/dL (250-450) Iron Saturation 9 % (15-34) Ferritin 57 ng/mL (26-388) Stool Occult Blood Negative (NEG) Medications Current Medications Ondansetron HCl (Zofran) 4 mg PRN Q8HRS PRN IV NAUSEA/VOMITING 1ST CHOICE; Start 01/26/18 at 03:15; Stop 01/27/18 at 03:14; Status DC Acetaminophen (Tylenol) 650 mg PRN Q4HRS PRN PO FEVER Last administered on at 20:43; Start 01/26/18 at 03:15; Stop 01/27/18 at 03:14; Status DC Sodium Chloride 1,000 ml @ 1,000 mls/hr Q1H PRN IV hypotension; Start at 12:12; Stop 01/26/18 at 18:11; Status DC Albumin Human 200 ml @ 200 mls/hr 1X PRN PRN IV Hypotension; Start 01/26/18 at 12:15; Stop 01/26/18 at 18:14; Status DC Acetaminophen (Tylenol) 500 mg 1X PRN PRN PO MILD PAIN / TEMP; Start 01/26/18 at 12:15; Stop 01/26/18 at 19:00; Status DC Diphenhydramine HCl (Benadryl) 25 mg 1X PRN PRN IV ITCHING; Start 01/26/18 at 12:15; Stop 01/26/18 at 19:00; Status DC Diphenhydramine HCl (Benadryl) 25 mg 1X PRN PRN IV ITCHING; Start 01/26/18 at 12:15; Stop 01/26/18 at 19:00; Status DC Info (PHARMACY MONITORING -- do not chart) 1 each PRN DAILY PRN MC SEE COMMENTS ; Start 01/26/18 at 12:15; Status Cancel Amlodipine Besylate (Norvasc) 10 mg DAILY PO Last administered on 01/29/18at 09 :21; Start 01/27/18 at 09:00 Aspirin (Ecotrin) 325 mg DAILYWBKFT PO Last administered on 01/29/18at 08:09; Start 01/26/18 at 17:00 Carvedilol (Coreg) 12.5 mg BIDWMEALS PO Last administered on 01/29/18at 08:09; Start 01/26/18 at 17:00 Clonidine HCl (Catapres) 0.1 mg TID PO Last administered on 01/29/18at 09:22; Start 01/26/18 at 21:00 Hydralazine HCl (Apresoline) 50 mg TID PO Last administered on 01/29/18at 09:22 ; Start 01/26/18 at 16:00 Acetaminophen/ Hydrocodone Bitart (Lortab 5/325) 1 tab PRN Q6HRS PRN PO SEVERE PAIN Last administered on 01/28/18at 22:17; Start 01/26/18 at 21:15 Acetaminophen (Tylenol) 650 mg PRN Q6HRS PRN PO FEVER; Start 01/27/18 at 09:00 Ondansetron HCl (Zofran) 4 mg PRN Q6HRS PRN IV NAUSEA/VOMITING; Start at 09:00 Morphine Sulfate (Morphine Sulfate) 2 mg PRN Q2HR PRN IV MODERATE TO SEVERE PAIN; Start 01/27/18 at 09:00 Tramadol HCl (Ultram) 50 mg PRN Q6HRS PRN PO MILD TO MODERATE PAIN; Start at 09:00 Docusate Sodium (Colace) 100 mg PRN DAILY PRN PO HARD STOOLS; Start 01/27/18 at 09:00 Labetalol HCl (Normodyne Iv Push) 20 mg PRN Q2HR PRN IVP HYPERTENSION, SEE COMMENTS; Start 01/27/18 at 09:00 Albuterol Sulfate (Ventolin Neb Soln) 2.5 mg PRN Q4HRS PRN NEB SHORTNESS OF BREATH Last administered on 01/28/18at 17:36; Start 01/27/18 at 09:00 Alprazolam (Xanax) 0.25 mg PRN BID PRN PO ANXIETY / AGITATION Last administered on 01/28/18at 22:17; Start 01/27/18 at 11:15 Labetalol HCl (Normodyne Iv Push) 20 mg PRN Q2HR PRN IVP HYPERTENSION, SEE COMMENTS; Start 01/27/18 at 12:45; Status UNV Heparin Sodium (Porcine) (Heparin Sodium) 5,000 unit Q8HRS SQ ; Start 01/27/18 at 14:00 Sodium Chloride 1,000 ml @ 1,000 mls/hr Q1H PRN IV hypotension; Start at 07:41; Stop 01/28/18 at 13:40; Status DC Albumin Human 200 ml @ 200 mls/hr 1X PRN PRN IV Hypotension; Start 01/28/18 at 07:45; Stop 01/28/18 at 13:44; Status DC Sodium Chloride (Normal Saline Flush) 10 ml 1X PRN PRN IV AP catheter pack; Start 01/28/18 at 07:45; Stop 01/28/18 at 19:00; Status DC Sodium Chloride (Normal Saline Flush) 10 ml 1X PRN PRN 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; Start 01/28/18 at 07:45; Stop 01/28/18 at 19:00; Status DC Info (PHARMACY MONITORING -- do not chart) 1 each PRN DAILY PRN MC SEE COMMENTS ; Start 01/28/18 at 07:45 Info (PHARMACY MONITORING -- do not chart) 1 each PRN DAILY PRN MC SEE COMMENTS ; Start 01/28/18 at 07:45; Status UNV Furosemide (Lasix) 40 mg BID92 PO Last administered on 01/29/18at 09:21; Start 01/28/18 at 09:00 Ferrous Sulfate (Feosol) 325 mg DAILYWBKFT PO Last administered on 01/29/18at 08:09; Start 01/28/18 at 09:00; Stop 01/29/18 at 09:08; Status DC Senna/Docusate Sodium (Senna Plus) 1 tab BID PO Last administered on at 09:21; Start 01/28/18 at 11:00 Docusate Sodium (Colace) 100 mg BID PO Last administered on 01/29/18at 09:21; Start 01/28/18 at 11:00 Magnesium Hydroxide (Milk Of Magnesia) 2,400 mg PRN Q12HR PRN PO CONSTIPATION; Start 01/28/18 at 11:00 Ferrous Sulfate (Feosol) 325 mg BIDWMEALS PO ; Start 01/29/18 at 17:00 Active Scripts Active Aspirin Ec (Aspirin) 325 Mg Tablet.dr 325 Mg PO DAILYWBKFT 30 Days Reported Carvedilol 12.5 Mg Tablet 12.5 Mg PO BIDWMEALS Hydralazine Hcl 50 Mg Tablet 1 Tab PO TID Clonidine Hcl 0.1 Mg Tablet 0.1 Mg PO TID Vitals/I & O Vital Sign - Last 24 Hours 10/19/18 10/19/18 10/19/18 10/19/18 13:39 13:39 13:40 13:40 Pulse 79 79 79 79 B/P (MAP) 191/124 191/124 191/124 191/124 01/28/18 01/28/18 01/28/18 01/28/18 15:00 15:54 16:54 17:18 Temp 97.9 97.9 Pulse 76 76 Resp 18 18 18 B/P (MAP) 109/66 (80) 109/66 Pulse Ox 95 O2 Delivery Room Air 01/28/18 01/28/18 01/28/18 01/28/18 17:36 19:00 20:00 20:42 Temp 99.0 99.0 Pulse 72 Resp 20 B/P (MAP) 109/68 (82) 109/68 Pulse Ox 97 94 O2 Delivery Room Air Room Air Room Air O2 Flow Rate 2.0 01/28/18 01/28/18 01/28/18 01/28/18 20:43 22:17 23:03 23:17 Temp 98.7 98.7 Pulse 72 72 Resp 20 B/P (MAP) 109/68 113/69 (84) Pulse Ox 99 99 O2 Delivery Room Air Nasal Cannula Room Air O2 Flow Rate 2.0 2.0 01/29/18 01/29/18 01/29/18 01/29/18 03:05 07:00 08:09 09:21 Temp 98.2 97.7 98.2 97.7 Pulse 66 65 66 66 Resp 20 18 B/P (MAP) 133/91 (105) 157/106 (123) 133/91 133/91 Pulse Ox 99 99 O2 Delivery Nasal Cannula Nasal Cannula O2 Flow Rate 2.0 01/29/18 01/29/18 01/29/18 09:22 09:22 11:00 Temp 97.9 97.9 Pulse 66 66 59 Resp 18 B/P (MAP) 133/91 133/91 112/77 (89) Pulse Ox 98 O2 Delivery Nasal Cannula Intake and Output 01/28/18 01/28/18 01/29/18 15:00 23:00 07:00 Intake Total 200 ml Output Total 1 ml Balance 199 ml DENIS ALLEN MD Jan 29, 2018 13:10
[2018-01-29 15:00] VITALS: BP 117/69
[2018-01-29] MEDS: ALPRAZolam 0.25 MG TABLET PO PRN (17:29)
[2018-01-29 19:00] VITALS: BP 113/76
[2018-01-29 22:11] LABS: CALCIUM PTH 8.5 mg/dL (8.7-10.2); CREATININE PTH 3.77 mg/dL (0.76-1.27); PHOSPHORUS PTH 2.9 mg/dL (2.5-4.5); PTH INTACT 294 pg/mL (15-65)
[2018-01-29 23:00] VITALS: BP 120/75
[2018-01-30 03:00] VITALS: BP 93/76
[2018-01-30] MEDS: HEPARIN for SUB-Q USE 5,000 UNIT/ML VIAL. SQ SCH ×3 (05:48→22:00)
[2018-01-30 07:00] VITALS: BP 160/108
[2018-01-30] MEDS: ASPIRIN ENTERIC COATED 325 MG TABLET.DR. PO SCH (08:13)
[2018-01-30] MEDS: ALPRAZolam 0.25 MG TABLET PO PRN ×2 (08:13→17:48)
[2018-01-30] MEDS: FERROUS SULFATE 325 MG TABLET. PO SCH ×2 (08:14→17:48)
[2018-01-30] MEDS: FUROSEMIDE 40 MG TABLET. PO SCH ×2 (08:14→13:53)
[2018-01-30] MEDS: amLODIPine BESYLATE 10 MG TABLET PO SCH (08:17)
[2018-01-30] MEDS: cloNIDine HCL 0.1 MG TABLET PO SCH ×3 (08:18→23:33)
[2018-01-30] MEDS: CARVEDILOL 12.5 MG TABLET. PO SCH ×2 (08:19→17:49)
[2018-01-30] MEDS: SENNOSIDES/DOCUSATE 8.6/50MG TABLET. PO SCH ×2 (08:20→21:00)
[2018-01-30] MEDS: DOCUSATE SODIUM 100 MG CAPSULE. PO SCH ×2 (08:20→21:00)
[2018-01-30] MEDS: CALCIUM CARB/VIT D3 500/200 TABLET. PO SCH ×2 (10:00→17:48)
[2018-01-30 11:00] VITALS: BP 135/91
--- NOTE | 2018-01-30 12:09 | PDOC ---
PROGRESS NOTES Chief Complaint Chief Complaint End-stage renal disease, on dialysis; volume overload with bl leg edema CHF stable asthma stable stroke wo neurologic deficit hypertension; chronic pain; left arm fistula anxiety non compliance copd stable iron deficiency rectal bleeding , 2/2 hemarrhoids likely constipation calcium deficiency plan: fu with renal, cont HD MWF sw to set up outpt HD, pt said has Insurance no cont multiple HTn meds, add labetolol iv prn xanax prn dvt ppx albuterol prn add lasix 40mg bid, add iron and Ca po add stool softner talked to nurse to make sure if renal needs to keep pt in hosp till we have outpt HD SETup, otherwise can dc home . but cannot reach renal. talked to SW, should be dc tmr, hope HD is set up. check fobt neg. History of Present Illness History of Present Illness ROS: no fever, chills, sob or chest pain no sob, c/o bl leg edema 1 -2 + said BM every 3ds, hard01/27, brown then wipe some bright red blood. no h/o hemorrhoids. Hb stable at 9s no further rectal bleeding Vitals Vitals Vital Signs Date Time Temp Pulse Resp B/P (MAP) Pulse Ox O2 Delivery O2 Flow Rate FiO2 01/30/18 09:19 97 Room Air 01/30/18 08:19 67 160/102 01/30/18 07:00 97.9 18 97.9 Physical Exam General: Alert Heart: Regular rate, Normal S1, Normal S2 Lungs: Clear Abdomen: Normal bowel sounds, Soft, Other (mild distended) Extremities: No clubbing, No cyanosis, Other (1+ edema) Skin: No rashes Labs LABS Laboratory Tests Test 01/29/18 12:46 Stool Occult Blood Negative (NEG) Comment Review of Relevant I have reviewed the following items benjamin (where applicable) has been applied. Labs Laboratory Tests Test 01/29/18 04:45 01/29/18 12:46 White Blood Count 5.5 x10^3/uL (4.0-11.0) Red Blood Count 3.72 x10^6/uL (4.30-5.70) Hemoglobin 9.0 g/dL (13.0-17.5) Hematocrit 27.7 % (39.0-53.0) Mean Corpuscular Volume 75 fL (79-100) Mean Corpuscular Hemoglobin 24 pg (25-35) Mean Corpuscular Hemoglobin Concent 33 g/dL (31-37) Red Cell Distribution Width 25.7 % (11.5-14.5) Platelet Count 200 x10^3/uL (140-400) Neutrophils (%) (Auto) 59 % (31-73) Lymphocytes (%) (Auto) 27 % (24-48) Monocytes (%) (Auto) 10 % (0-9) Eosinophils (%) (Auto) 2 % (0-3) Basophils (%) (Auto) 2 % (0-3) Neutrophils # (Auto) 3.3 x10^3uL (1.8-7.7) Lymphocytes # (Auto) 1.5 x10^3/uL (1.0-4.8) Monocytes # (Auto) 0.6 x10^3/uL (0.0-1.1) Eosinophils # (Auto) 0.1 x10^3/uL (0.0-0.7) Basophils # (Auto) 0.1 x10^3/uL (0.0-0.2) Platelet Estimate Adequate (ADEQUATE) Polychromasia Slight Hypochromasia Slight Poikilocytosis Marked Anisocytosis Marked Microcytosis Slight Ovalocytes Few Crenated Cell Present Schistocytes Few RBC Morphology Bizarre Forms Few Sodium Level 143 mmol/L (136-145) Potassium Level 3.8 mmol/L (3.5-5.1) Chloride Level 105 mmol/L (98-107) Carbon Dioxide Level 30 mmol/L (21-32) Anion Gap 8 (6-14) Blood Urea Nitrogen 30 mg/dL (8-26) Creatinine 4.0 mg/dL (0.7-1.3) Estimated GFR (Non- 17 (>59) Estimated GFR (Cockcroft-Gault) 19.1 Glucose Level 89 mg/dL (70-99) Calcium Level 8.0 mg/dL (8.5-10.1) Phosphorus Level 3.2 mg/dL (2.6-4.7) Iron Level 26 ug/dL (65-175) Total Iron Binding Capacity 279 ug/dL (250-450) Iron Saturation 9 % (15-34) Ferritin 57 ng/mL (26-388) EGFR 20 (>59) PTH (Intact) Specimen Description Comment (.) Parathyroid Hormone (Intact) 294 pg/mL (15-65) Calcium (PTH Intact) 8.5 mg/dL (8.7-10.2) Creatinine (PTH Intact) 3.77 mg/dL (0.76-1.27) Phosphorus (PTH Intact) 2.9 mg/dL (2.5-4.5) Stool Occult Blood Negative (NEG) Laboratory Tests Test 01/29/18 12:46 Stool Occult Blood Negative (NEG) Medications Current Medications Ondansetron HCl (Zofran) 4 mg PRN Q8HRS PRN IV NAUSEA/VOMITING 1ST CHOICE; Start 01/26/18 at 03:15; Stop 01/27/18 at 03:14; Status DC Acetaminophen (Tylenol) 650 mg PRN Q4HRS PRN PO FEVER Last administered on at 20:43; Start 01/26/18 at 03:15; Stop 01/27/18 at 03:14; Status DC Sodium Chloride 1,000 ml @ 1,000 mls/hr Q1H PRN IV hypotension; Start at 12:12; Stop 01/26/18 at 18:11; Status DC Albumin Human 200 ml @ 200 mls/hr 1X PRN PRN IV Hypotension; Start 01/26/18 at 12:15; Stop 01/26/18 at 18:14; Status DC Acetaminophen (Tylenol) 500 mg 1X PRN PRN PO MILD PAIN / TEMP; Start 01/26/18 at 12:15; Stop 01/26/18 at 19:00; Status DC Diphenhydramine HCl (Benadryl) 25 mg 1X PRN PRN IV ITCHING; Start 01/26/18 at 12:15; Stop 01/26/18 at 19:00; Status DC Diphenhydramine HCl (Benadryl) 25 mg 1X PRN PRN IV ITCHING; Start 01/26/18 at 12:15; Stop 01/26/18 at 19:00; Status DC Info (PHARMACY MONITORING -- do not chart) 1 each PRN DAILY PRN MC SEE COMMENTS ; Start 01/26/18 at 12:15; Status Cancel Amlodipine Besylate (Norvasc) 10 mg DAILY PO Last administered on 01/30/18 08 :17; Start 01/27/18 at 09:00 Aspirin (Ecotrin) 325 mg DAILYWBKFT PO Last administered on 01/30/18at 08:13; Start 01/26/18 at 17:00 Carvedilol (Coreg) 12.5 mg BIDWMEALS PO Last administered on 01/30/18 08:19; Start 01/26/18 at 17:00 Clonidine HCl (Catapres) 0.1 mg TID PO Last administered on 01/30/18at 08:18; Start 01/26/18 at 21:00 Hydralazine HCl (Apresoline) 50 mg TID PO Last administered on 01/30/18 08:18 ; Start 01/26/18 at 16:00 Acetaminophen/ Hydrocodone Bitart (Lortab 5/325) 1 tab PRN Q6HRS PRN PO SEVERE PAIN Last administered on 01/28/18at 22:17; Start 01/26/18 at 21:15 Acetaminophen (Tylenol) 650 mg PRN Q6HRS PRN PO FEVER; Start 01/27/18 at 09:00 Ondansetron HCl (Zofran) 4 mg PRN Q6HRS PRN IV NAUSEA/VOMITING; Start at 09:00 Morphine Sulfate (Morphine Sulfate) 2 mg PRN Q2HR PRN IV MODERATE TO SEVERE PAIN; Start 01/27/18 at 09:00 Tramadol HCl (Ultram) 50 mg PRN Q6HRS PRN PO MILD TO MODERATE PAIN; Start at 09:00 Docusate Sodium (Colace) 100 mg PRN DAILY PRN PO HARD STOOLS; Start 01/27/18 at 09:00 Labetalol HCl (Normodyne Iv Push) 20 mg PRN Q2HR PRN IVP HYPERTENSION, SEE COMMENTS; Start 01/27/18 at 09:00 Albuterol Sulfate (Ventolin Neb Soln) 2.5 mg PRN Q4HRS PRN NEB SHORTNESS OF BREATH Last administered on 01/28/18at 17:36; Start 01/27/18 at 09:00 Alprazolam (Xanax) 0.25 mg PRN BID PRN PO ANXIETY / AGITATION Last administered on 01/30/18at 08:13; Start 01/27/18 at 11:15 Labetalol HCl (Normodyne Iv Push) 20 mg PRN Q2HR PRN IVP HYPERTENSION, SEE COMMENTS; Start 01/27/18 at 12:45; Status UNV Heparin Sodium (Porcine) (Heparin Sodium) 5,000 unit Q8HRS SQ ; Start 01/27/18 at 14:00 Sodium Chloride 1,000 ml @ 1,000 mls/hr Q1H PRN IV hypotension; Start at 07:41; Stop 01/28/18 at 13:40; Status DC Albumin Human 200 ml @ 200 mls/hr 1X PRN PRN IV Hypotension; Start 01/28/18 at 07:45; Stop 01/28/18 at 13:44; Status DC Sodium Chloride (Normal Saline Flush) 10 ml 1X PRN PRN IV AP catheter pack; Start 01/28/18 at 07:45; Stop 01/28/18 at 19:00; Status DC Sodium Chloride (Normal Saline Flush) 10 ml 1X PRN PRN 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; Start 01/28/18 at 07:45; Stop 01/28/18 at 19:00; Status DC Info (PHARMACY MONITORING -- do not chart) 1 each PRN DAILY PRN MC SEE COMMENTS ; Start 01/28/18 at 07:45 Info (PHARMACY MONITORING -- do not chart) 1 each PRN DAILY PRN MC SEE COMMENTS ; Start 01/28/18 at 07:45; Status UNV Furosemide (Lasix) 40 mg [id number] PO Last administered on 01/30/18at 08:14; Start 01/28/18 at 09:00 Ferrous Sulfate (Feosol) 325 mg DAILYWBKFT PO Last administered on 01/29/18at 08:09; Start 01/28/18 at 09:00; Stop 01/29/18 at 09:08; Status DC Senna/Docusate Sodium (Senna Plus) 1 tab BID PO Last administered on at 09:21; Start 01/28/18 at 11:00 Docusate Sodium (Colace) 100 mg BID PO Last administered on 01/29/18at 09:21; Start 01/28/18 at 11:00 Magnesium Hydroxide (Milk Of Magnesia) 2,400 mg PRN Q12HR PRN PO CONSTIPATION; Start 01/28/18 at 11:00 Ferrous Sulfate (Feosol) 325 mg BIDWMEALS PO Last administered on 01/30/18at 08 :14; Start 01/29/18 at 17:00 Calcium/Vitamin D (Oscal D 500mg/ 200uts) 1 tab BIDWMEALS PO Last administered on 01/30/18at 10:00; Start 01/30/18 at 10:00 Active Scripts Active Aspirin Ec (Aspirin) 325 Mg Tablet.dr 325 Mg PO DAILYWBKFT 30 Days Reported Carvedilol 12.5 Mg Tablet 12.5 Mg PO BIDWMEALS Hydralazine Hcl 50 Mg Tablet 1 Tab PO TID Clonidine Hcl 0.1 Mg Tablet 0.1 Mg PO TID Vitals/I & O Vital Sign - Last 24 Hours 01/29/18 01/29/18 01/29/18 01/29/18 14:37 14:38 15:00 17:27 Temp 97.5 97.5 Pulse 59 59 60 60 Resp 18 B/P (MAP) 112/77 112/77 117/69 (85) 117/69 Pulse Ox 94 O2 Delivery Room Air 01/29/18 01/29/18 01/29/18 01/29/18 19:00 20:00 21:36 21:36 Temp 98.2 98.2 Pulse 68 72 72 Resp 18 B/P (MAP) 113/76 (88) 143/94 143/94 Pulse Ox 98 O2 Delivery Room Air Room Air 01/29/18 01/30/18 01/30/18 01/30/18 23:00 03:00 07:00 08:17 Temp 98.1 98.2 97.9 98.1 98.2 97.9 Pulse 72 67 67 67 Resp 18 18 18 B/P (MAP) 120/75 (90) 93/76 (82) 160/108 (125) 160/102 Pulse Ox 98 98 99 O2 Delivery Room Air Room Air Room Air 01/30/18 01/30/18 01/30/18 01/30/18 08:18 08:18 08:19 09:19 Pulse 67 67 67 B/P (MAP) 160/102 160/102 160/102 Pulse Ox 97 O2 Delivery Room Air Intake and Output 01/29/18 01/29/18 01/30/18 15:00 23:00 07:00 Intake Total 300 ml 500 ml 350 ml Balance 300 ml 500 ml 350 ml DENIS ALLEN MD Jan 30, 2018 12:09
[2018-01-30 15:00] VITALS: BP 101/62
[2018-01-30] MEDS: HYDROcodone/APAP 5/325MG 1 TAB TABLET PO PRN (17:48)
[2018-01-30 19:00] VITALS: BP 113/67
[2018-01-30] MEDS ORDERED: FUROSEMIDE 40 MG/4 ML VIAL. IVP ONE (19:30)
[2018-01-30 22:07] VITALS: BP 119/75
[2018-01-31] MEDS: HYDROcodone/APAP 5/325MG 1 TAB TABLET PO PRN ×4 (00:33→21:44)
[2018-01-31 04:40] LABS: BASO # 0.1 x10^3/uL (0.0-0.2); BASO % 2 % (0-3); EOS # 0.1 x10^3/uL (0.0-0.7); EOS % 2 % (0-3); HEMATOCRIT 28.6 % (39.0-53.0); HEMOGLOBIN 9.3 g/dL (13.0-17.5); LYMPH # 1.5 x10^3/uL (1.0-4.8); LYMPH % 25 % (24-48); MEAN CORPUSCULAR HEMOGLOBIN 24 pg (25-35); MEAN CORPUSCULAR HGB CONC 33 g/dL (31-37); MEAN CORPUSCULAR VOLUME 75 fL (79-100); MONO # 0.6 x10^3/uL (0.0-1.1); MONO % 10 % (0-9); NEUT # 3.8 x10^3uL (1.8-7.7); NEUT % 62 % (31-73); PLATELET COUNT 206 x10^3/uL (140-400); RED BLOOD COUNT 3.84 x10^6/uL (4.30-5.70); RED CELL DISTRIBUTION WIDTH 25.1 % (11.5-14.5); WHITE BLOOD COUNT 6.2 x10^3/uL (4.0-11.0)
[2018-01-31 04:54] LABS: CALCIUM 8.3 mg/dL (8.5-10.1); CREATININE 5.5 mg/dL (0.7-1.3); GFR 13.2; POTASSIUM 3.8 mmol/L (3.5-5.1)
[2018-01-31] MEDS: HEPARIN for SUB-Q USE 5,000 UNIT/ML VIAL. SQ SCH ×3 (05:40→21:29)
[2018-01-31 06:00] VITALS: BP 121/73
[2018-01-31] MEDS: ALPRAZolam 0.25 MG TABLET PO PRN (07:29)
[2018-01-31] MEDS ORDERED: HYDR-2758 PO (07:50)
[2018-01-31] MEDS ORDERED: FERR325T72 PO (07:50)
[2018-01-31] MEDS ORDERED: CALC1TAB70 PO (07:50)
[2018-01-31] MEDS ORDERED: ALPR0.254 PO (07:50)
[2018-01-31] MEDS ORDERED: FURO40TA4 PO (07:50)
[2018-01-31] MEDS: CARVEDILOL 12.5 MG TABLET. PO SCH ×2 (08:00→18:04)
--- NOTE | 2018-01-31 08:40 | PDOC3 ---
Discharge Summary Visit Information Date of Admission: Jan 26, 2018 Date of Discharge: Jan 31, 2018 Admitting Diagnosis Comment: End-stage renal disease, on dialysis; volume overload with bl leg edema CHF stable asthma stable stroke wo neurologic deficit hypertension; chronic pain; left arm fistula anxiety non compliance copd stable iron deficiency rectal bleeding , 2/2 hemarrhoids likely constipation calcium deficiency Brief Hospital Course Allergies Allergies Coded Allergies Type Severity Reaction Last Updated Verified lisinopril Allergy Severe Swelling 06/01/17 Yes I S O L A T I O N *CONTACT* Allergy Unknown 01/17/18 Yes Vital Signs Vital Signs Date Time Temp Pulse Resp B/P (MAP) Pulse Ox O2 Delivery O2 Flow Rate FiO2 01/31/18 07:29 Room Air 01/31/18 06:00 97.6 70 18 121/73 (89) 96 97.6 Lab Results Laboratory Tests Test 01/29/18 12:46 01/31/18 04:20 Stool Occult Blood Negative (NEG) White Blood Count 6.2 x10^3/uL (4.0-11.0) Red Blood Count 3.84 x10^6/uL (4.30-5.70) Hemoglobin 9.3 g/dL (13.0-17.5) Hematocrit 28.6 % (39.0-53.0) Mean Corpuscular Volume 75 fL (79-100) Mean Corpuscular Hemoglobin 24 pg (25-35) Mean Corpuscular Hemoglobin Concent 33 g/dL (31-37) Red Cell Distribution Width 25.1 % (11.5-14.5) Platelet Count 206 x10^3/uL (140-400) Neutrophils (%) (Auto) 62 % (31-73) Lymphocytes (%) (Auto) 25 % (24-48) Monocytes (%) (Auto) 10 % (0-9) Eosinophils (%) (Auto) 2 % (0-3) Basophils (%) (Auto) 2 % (0-3) Neutrophils # (Auto) 3.8 x10^3uL (1.8-7.7) Lymphocytes # (Auto) 1.5 x10^3/uL (1.0-4.8) Monocytes # (Auto) 0.6 x10^3/uL (0.0-1.1) Eosinophils # (Auto) 0.1 x10^3/uL (0.0-0.7) Basophils # (Auto) 0.1 x10^3/uL (0.0-0.2) Sodium Level 142 mmol/L (136-145) Potassium Level 3.8 mmol/L (3.5-5.1) Chloride Level 104 mmol/L (98-107) Carbon Dioxide Level 28 mmol/L (21-32) Anion Gap 10 (6-14) Blood Urea Nitrogen 49 mg/dL (8-26) Creatinine 5.5 mg/dL (0.7-1.3) Estimated GFR (Cockcroft-Gault) 13.2 Glucose Level 91 mg/dL (70-99) Calcium Level 8.3 mg/dL (8.5-10.1) Laboratory Tests Test 01/31/18 04:20 White Blood Count 6.2 x10^3/uL (4.0-11.0) Red Blood Count 3.84 x10^6/uL (4.30-5.70) Hemoglobin 9.3 g/dL (13.0-17.5) Hematocrit 28.6 % (39.0-53.0) Mean Corpuscular Volume 75 fL (79-100) Mean Corpuscular Hemoglobin 24 pg (25-35) Mean Corpuscular Hemoglobin Concent 33 g/dL (31-37) Red Cell Distribution Width 25.1 % (11.5-14.5) Platelet Count 206 x10^3/uL (140-400) Neutrophils (%) (Auto) 62 % (31-73) Lymphocytes (%) (Auto) 25 % (24-48) Monocytes (%) (Auto) 10 % (0-9) Eosinophils (%) (Auto) 2 % (0-3) Basophils (%) (Auto) 2 % (0-3) Neutrophils # (Auto) 3.8 x10^3uL (1.8-7.7) Lymphocytes # (Auto) 1.5 x10^3/uL (1.0-4.8) Monocytes # (Auto) 0.6 x10^3/uL (0.0-1.1) Eosinophils # (Auto) 0.1 x10^3/uL (0.0-0.7) Basophils # (Auto) 0.1 x10^3/uL (0.0-0.2) Sodium Level 142 mmol/L (136-145) Potassium Level 3.8 mmol/L (3.5-5.1) Chloride Level 104 mmol/L (98-107) Carbon Dioxide Level 28 mmol/L (21-32) Anion Gap 10 (6-14) Blood Urea Nitrogen 49 mg/dL (8-26) Creatinine 5.5 mg/dL (0.7-1.3) Estimated GFR (Cockcroft-Gault) 13.2 Glucose Level 91 mg/dL (70-99) Calcium Level 8.3 mg/dL (8.5-10.1) Brief Hospital Course Mr. Boswell is a 52 old admitted on the day of admission because of dialysis issues. He has Medicaid. Essentially self-pay he gets dialyzed intermittently only when he comes to the ER. Once dialysis been set up will discharge today outpatient. Blood pressure on the high side. Already on hydralazine and clonidine at home which he claims he has scripts for. Some medications started here in the hospital which I have Rxd including ferrous sulfate, Rosy-Lance. Etc. Patient seen and examined, no PT needs Okay to DC later as outpatient dialysis has been set up dc < 30 mins Discharge Information Condition at Discharge: Improved, Stable Disposition/Orders: D/C to Home Scheduled Amlodipine Besylate (Amlodipine Besylate) 10 Mg Tablet, 10 MG PO DAILY, ( Reported) Entered as Reported by: AQUILINO DAVIDSON on 01/18/181455 Last Action: Continued on 01/26/181525 by ERICA RANDLE RN Aspirin (Aspirin Ec) 325 Mg Tablet.dr, 325 MG PO [id number] for 30 Days, #30 Ref 2 Prescribed by: MICHAEL CALDWELL on 10/25/17 1112 Last Action: Continued on 01/26/18 152 by ERICA RANDLE RN Calcium Carbonate/Vitamin D3 (Oyster Shell 500 Mg + Vit D Tb) 1 Each Tablet, 1 TAB PO BIDWMEALS for 30 Days, #60 Prescribed by: KATHERINE WARD on 01/31/18 0750 Carvedilol (Carvedilol) 12.5 Mg Tablet, 12.5 MG PO BIDWMEALS, (Reported) Entered as Reported by: AQUILINO DAVIDSON on 01/18/18 1455 Last Action: Continued on 01/26/181525 by ERICA RANDLE RN Clonidine Hcl (Clonidine Hcl) 0.1 Mg Tablet, 0.1 MG PO TID, (Reported) Entered as Reported by: AQUILINO DAVIDSON on 01/18/181454 Last Action: Continued on 01/26/181525 by ERICA RANDLE RN Ferrous Sulfate (Feosol) 325 Mg Tablet, 325 MG PO BIDWMEALS for 30 Days, #60 Prescribed by: KATHERINE WARD on 01/31/18 0750 Furosemide (Furosemide) 40 Mg Tablet, 40 MG PO BID92 for 30 Days, #60 Prescribed by: KATHERINE WARD on 01/31/18 0750 Hydralazine Hcl (Hydralazine Hcl) 50 Mg Tablet, 1 TAB PO TID, #90 Ref 5 ( Reported) Entered as Reported by: AQUILINO DAVIDSON on 01/18/181454 Last Action: Converted on 01/26/181525 by ERICA RANDLE RN Scheduled PRN Alprazolam (Alprazolam) 0.25 Mg Tablet, 0.25 MG PO PRN BID PRN for ANXIETY / AGITATION for 10 Days Prescribed by: KATHERINE WARD on 01/31/18 0750 Hydrocodone Bit/Acetaminophen (Hydrocodone-Apap 5-325 ) 1 Each Tablet, 1 TAB PO PRN Q6HRS PRN for SEVERE PAIN, #20 Prescribed by: KATHERINE WARD on 01/31/18 0750 KATHERINE WARD MD Jan 31, 2018 08:40
[2018-01-31] MEDS: SENNOSIDES/DOCUSATE 8.6/50MG TABLET. PO SCH ×2 (09:00→21:00)
[2018-01-31] MEDS: amLODIPine BESYLATE 10 MG TABLET PO SCH (09:00)
[2018-01-31] MEDS: cloNIDine HCL 0.1 MG TABLET PO SCH ×3 (09:00→21:31)
[2018-01-31] MEDS: DOCUSATE SODIUM 100 MG CAPSULE. PO SCH ×2 (09:00→21:00)
[2018-01-31] MEDS: FUROSEMIDE 40 MG TABLET. PO SCH ×2 (09:00→16:06)
[2018-01-31] MEDS: CALCIUM CARB/VIT D3 500/200 TABLET. PO SCH ×2 (09:24→18:03)
[2018-01-31] MEDS: FERROUS SULFATE 325 MG TABLET. PO SCH ×2 (09:24→18:03)
[2018-01-31] MEDS: ASPIRIN ENTERIC COATED 325 MG TABLET.DR. PO SCH (09:24)
[2018-01-31] MEDS ORDERED: IV NORMAL SALINE 1000ML BAG 1,000 ML IV PRN ×2 (09:40)
[2018-01-31] MEDS ORDERED: DIALYSIS PATIENT. MC PRN ×2 (09:45)
[2018-01-31 11:00] VITALS: BP 137/94
--- NOTE | 2018-01-31 12:04 | PDOC ---
Renal-Progress Notes Subjective Notes Notes NO NEW COMPLAINTS History of Present Illness Hx of present illness STABLE Vitals Vitals Vital Signs Date Time Temp Pulse Resp B/P (MAP) Pulse Ox O2 Delivery O2 Flow Rate FiO2 01/31/18 11:00 98.1 69 17 137/94 (108) 100 Room Air 98.1 Weight Weight [ ] I.O. Intake and Output Intake and Output 01/31/18 07:00 Intake Total 1570 ml Output Total 300 ml Balance 1270 ml Intake Oral 1570 ml Output Urine Total 300 ml Labs Labs Laboratory Tests Test 01/31/18 04:20 White Blood Count 6.2 x10^3/uL (4.0-11.0) Red Blood Count 3.84 x10^6/uL (4.30-5.70) Hemoglobin 9.3 g/dL (13.0-17.5) Hematocrit 28.6 % (39.0-53.0) Mean Corpuscular Volume 75 fL (79-100) Mean Corpuscular Hemoglobin 24 pg (25-35) Mean Corpuscular Hemoglobin Concent 33 g/dL (31-37) Red Cell Distribution Width 25.1 % (11.5-14.5) Platelet Count 206 x10^3/uL (140-400) Neutrophils (%) (Auto) 62 % (31-73) Lymphocytes (%) (Auto) 25 % (24-48) Monocytes (%) (Auto) 10 % (0-9) Eosinophils (%) (Auto) 2 % (0-3) Basophils (%) (Auto) 2 % (0-3) Neutrophils # (Auto) 3.8 x10^3uL (1.8-7.7) Lymphocytes # (Auto) 1.5 x10^3/uL (1.0-4.8) Monocytes # (Auto) 0.6 x10^3/uL (0.0-1.1) Eosinophils # (Auto) 0.1 x10^3/uL (0.0-0.7) Basophils # (Auto) 0.1 x10^3/uL (0.0-0.2) Sodium Level 142 mmol/L (136-145) Potassium Level 3.8 mmol/L (3.5-5.1) Chloride Level 104 mmol/L (98-107) Carbon Dioxide Level 28 mmol/L (21-32) Anion Gap 10 (6-14) Blood Urea Nitrogen 49 mg/dL (8-26) Creatinine 5.5 mg/dL (0.7-1.3) Estimated GFR (Cockcroft-Gault) 13.2 Glucose Level 91 mg/dL (70-99) Calcium Level 8.3 mg/dL (8.5-10.1) Review of Systems Constitutional: yes: weakness, alert, oriented Ears/Nose/Throat: Yes: no symptom reported Eyes: Yes: no symptom reported Pulmonary: Yes no symptom reported Cardiovascular: Yes no symptom reported Gastrointestional: Yes: no symptom reported Genitourinary: Yes: no symptom reported Musculoskeletal: Yes: no symptom reported Skin: Yes no symptom reported Psychiatric/Neurological: Yes: no symptom reported Endocrine: Yes: no symptom reported Physical Exam General Appearance: no apparent distress Respiratory: bilateral CTA Heart: S1S2 Abdomen: soft, bowel sounds present Genitourinary: bladder flat Extremities: pulses present Neurology: alert Assessment Assessment IMP ESRD HTN ANEMIA PLAN HD TODAY UF TO [facility] HAS ACCEPTED PT OK TO D/C ONCE CHAIR TIME IS SET UP OSIRIS MEADOWS MD Jan 31, 2018 12:04
[2018-01-31 15:00] VITALS: BP 169/105
[2018-01-31 18:38] VITALS: BP 112/77
[2018-01-31 19:00] VITALS: BP 111/64
[2018-01-31 23:00] VITALS: BP 118/74
[2018-02-01 03:11] VITALS: BP 130/85
[2018-02-01] MEDS: HEPARIN for SUB-Q USE 5,000 UNIT/ML VIAL. SQ SCH ×2 (05:12→13:24)
[2018-02-01 07:00] VITALS: BP 145/98
[2018-02-01] MEDS: FERROUS SULFATE 325 MG TABLET. PO SCH (08:08)
[2018-02-01] MEDS: ALPRAZolam 0.25 MG TABLET PO PRN (08:08)
[2018-02-01] MEDS: ASPIRIN ENTERIC COATED 325 MG TABLET.DR. PO SCH (08:09)
[2018-02-01] MEDS: amLODIPine BESYLATE 10 MG TABLET PO SCH (08:10)
[2018-02-01] MEDS: CALCIUM CARB/VIT D3 500/200 TABLET. PO SCH (08:10)
[2018-02-01] MEDS: CARVEDILOL 12.5 MG TABLET. PO SCH (08:11)
[2018-02-01] MEDS: cloNIDine HCL 0.1 MG TABLET PO SCH ×2 (08:12→13:20)
[2018-02-01] MEDS: FUROSEMIDE 40 MG TABLET. PO SCH ×2 (08:13→13:19)
[2018-02-01] MEDS: HYDROcodone/APAP 5/325MG 1 TAB TABLET PO PRN (08:13)
[2018-02-01] MEDS: SENNOSIDES/DOCUSATE 8.6/50MG TABLET. PO SCH (09:00)
[2018-02-01] MEDS: DOCUSATE SODIUM 100 MG CAPSULE. PO SCH (09:00)
--- NOTE | 2018-02-01 09:32 | PDOC ---
Provider Note Provider Note Pt did not go home yesterday aS chair time not set up yet Otherwise no medical issues overnight Med list on chart Discharge summary done Discharge today when chair time set up KATHERINE WARD MD Feb 01, 2018 09:32
[2018-02-01 11:00] VITALS: BP 118/77
--- NOTE | 2018-02-01 11:32 | PDOC ---
Renal-Progress Notes Subjective Notes Notes NONE History of Present Illness Hx of present illness STABLE Vitals Vitals Vital Signs Date Time Temp Pulse Resp B/P (MAP) Pulse Ox O2 Delivery O2 Flow Rate FiO2 02/01/18 09:10 Room Air 02/01/18 08:12 72 145/98 02/01/18 07:00 98.1 17 100 98.1 01/31/18 22:44 2.0 Weight Weight [ ] I.O. Intake and Output Intake and Output 02/01/18 07:00 Intake Total 1040 ml Output Total 500 ml Balance 540 ml Intake Oral 1040 ml Output Urine Total 500 ml # Voids 1 Review of Systems Constitutional: yes: weakness, alert, oriented Ears/Nose/Throat: Yes: no symptom reported Eyes: Yes: no symptom reported Pulmonary: Yes no symptom reported Cardiovascular: Yes no symptom reported Gastrointestional: Yes: no symptom reported Genitourinary: Yes: no symptom reported Musculoskeletal: Yes: no symptom reported Skin: Yes no symptom reported Psychiatric/Neurological: Yes: no symptom reported Endocrine: Yes: no symptom reported Physical Exam General Appearance: no apparent distress Respiratory: bilateral CTA Heart: S1S2 Abdomen: soft, bowel sounds present Genitourinary: bladder flat Extremities: pulses present Neurology: alert Assessment Assessment IMP ESRD HTN ANEMIA PLAN HD TOMORROW HAVE D/W SW OK TO D/C ONCE CHAIR TIME IS SET UP OSIRIS MEADOWS MD Feb 01, 2018 11:32
[2018-02-01 15:00] VITALS: BP 111/75
== END 2018-02-01 17:07 | disposition home or self-care (01) | DRG 291 ==
LOC: ER 01:28 → 5 NORTH 01:50
PROVIDERS: ADMIT Internal Medicine; ATTEND Internal Medicine
PROC: 5A1D70Z Performance of Urinary Filtration, Intermittent, Less than 6 Hours Per Day (ICD-10-PCS; principal; 2018-01-26)
PROC: 5A1D70Z Performance of Urinary Filtration, Intermittent, Less than 6 Hours Per Day (ICD-10-PCS; 2018-01-28)
PROC: 5A1D70Z Performance of Urinary Filtration, Intermittent, Less than 6 Hours Per Day (ICD-10-PCS; 2018-01-31)
DX: I13.2 Hypertensive heart and chronic kidney disease with heart failure and with stage 5 chronic kidney disease, or end stage renal disease (principal); N18.6 End stage renal disease; K62.5 Hemorrhage of anus and rectum; E21.3 Hyperparathyroidism, unspecified; K64.9 Unspecified hemorrhoids; D64.9 Anemia, unspecified; E58 Dietary calcium deficiency; E61.1 Iron deficiency; F41.9 Anxiety disorder, unspecified; G89.29 Other chronic pain; J44.9 Chronic obstructive pulmonary disease, unspecified; K59.00 Constipation, unspecified; I50.9 Heart failure, unspecified; Z83.3 Family history of diabetes mellitus; Z82.49 Family history of ischemic heart disease and other diseases of the circulatory system; Z86.73 Personal history of transient ischemic attack (TIA), and cerebral infarction without residual deficits; Z91.19 Patient's noncompliance with other medical treatment and regimen; Z99.2 Dependence on renal dialysis; Z82.3 Family history of stroke; Z79.899 Other long term (current) drug therapy; Z88.8 Allergy status to other drugs, medicaments and biological substances
CPT/HCPCS: 36415; 71045; 80048; 82274; 82728; 83540; 83550; 83880; 83970; 84100; 85007; 85025; 86704; 86706; 87340; 87641; 94640; 94760; J1940; J7613; 99285-25

== ENCOUNTER 2018-05-25 03:49 | Inpatient (IN) | payer OTHER ==
[2018-05-25] VITALS (9 sets, daily range): BP systolic 109–172; BP diastolic 71–112
[~2018-05-25] VITALS: Ht 172.7 cm; Wt 70.5 kg
[~2018-05-25 03:49] MED LIST changes: +ALPR0.254 PO; -AMLO10TA6 PO; +AMLO10TA8 PO; +CALC1TAB70 PO; +CARV12.511 PO; -CARV12.52 PO; +CARV3.1210 PO; -CARV3.122 PO; +FERR325T72 PO; +FURO40TA4 PO; +HYDR-2761 PO
[2018-05-25] MEDS ORDERED: ONDANSETRON PF 4 MG/2 ML VIAL. IV ONE (04:30)
[2018-05-25 04:31] LABS: BASO # 0.1 x10^3/uL (0.0-0.2); BASO % 2 % (0-3); EOS # 0.2 x10^3/uL (0.0-0.7); EOS % 4 % (0-3); HEMATOCRIT 37.1 % (39.0-53.0); HEMOGLOBIN 11.9 g/dL (13.0-17.5); LYMPH # 0.7 x10^3/uL (1.0-4.8); LYMPH % 11 % (24-48); MEAN CORPUSCULAR HEMOGLOBIN 27 pg (25-35); MEAN CORPUSCULAR HGB CONC 32 g/dL (31-37); MEAN CORPUSCULAR VOLUME 84 fL (79-100); MONO # 0.5 x10^3/uL (0.0-1.1); MONO % 9 % (0-9); NEUT # 4.6 x10^3uL (1.8-7.7); NEUT % 74 % (31-73); PLATELET COUNT 229 x10^3/uL (140-400); RED BLOOD COUNT 4.44 x10^6/uL (4.30-5.70); RED CELL DISTRIBUTION WIDTH 18.2 % (11.5-14.5); WHITE BLOOD COUNT 6.2 x10^3/uL (4.0-11.0)
[2018-05-25] MEDS ORDERED: LABETALOL 20 MG/4 ML DISP.SYRIN. IVP ONE ×2 (04:45→06:00)
[2018-05-25] MEDS ORDERED: fentaNYL PF VIAL 100 MCG/2 ML VIAL IV ONE (04:45)
[2018-05-25 04:53] LABS: CALCIUM 8.6 mg/dL (8.5-10.1); CREATININE 6.2 mg/dL (0.7-1.3); GFR 11.5; POTASSIUM 5.1 mmol/L (3.5-5.1)
[2018-05-25 04:59] LABS: ALBUMIN 3.6 g/dL (3.4-5.0); ALBUMIN/GLOBULIN RATIO 0.9 (1.0-1.7); TOTAL PROTEIN 7.4 g/dL (6.4-8.2)
[2018-05-25] MEDS ORDERED: diphenhydrAMINE 50 MG/ML VIAL IVP ONE (05:15)
--- NOTE | 2018-05-25 05:52 | PHYS DOC ---
Past Medical History Past Medical History: Asthma, CVA, Hypertension, Renal Disease, Renal Failure, Other Additional Past Medical Histor: ESRD Past Surgical History: Cervical Fusion, Other Additional Past Surgical Histo: DIALYSIS GRAFT REMOVED FROM RIGHT SUBCLAVIAN, FISTULA L ARM,HERNIA Alcohol Use: None Drug Use: None Adult General Chief Complaint Chief Complaint: MULTIPLE COMPLAINTS HPI HPI Patient is a 53 year old -[place] male who presents with multiple medical complaints. Patient complaints of left arm pain ovary AV fistula site and sharp intermittent abdominal pain for the past week. Patient was admitted one week ago for hypertensive urgency and ascites. He had 6-1/2 L drained from his abdomen at that time. He reports reaccumulation of fluid. Patient states he is attended dialysis session yesterday but it was cut short after an hour due to persistent pain off catheter in AV fistula. Patient's blood pressure on ED arrival > 250/150. Patient states he took his blood pressure medication yesterday during the daytime. Denies headache, change of vision, chest pain, shortness of breath. Patient states his blood pressure is usually greater than 180 but not usually this high. No fever chills, nausea vomiting or sweats. No other acute symptoms or complaints.[] Review of Systems Review of Systems Review symptoms as per history of present illness. All other review symptoms are negative. All other systems were reviewed and found to be within normal limits, except as documented in this note. Current Medications Current Medications Current Medications Medications (Trade) Dose Ordered Sig/Sascha Start Time Stop Time Status Last Admin Dose Admin Diphenhydramine HCl (Benadryl) 25 mg 1X ONCE 05/25/18 05:15 05/25/18 05:16 DC 05/25/18 05:12 25 MG Fentanyl Citrate (Fentanyl 2ml Vial) 50 mcg 1X ONCE 05/25/18 04:45 05/25/18 04:46 DC 05/25/18 04:36 50 MCG Labetalol HCl (Normodyne Iv Push) 20 mg 1X ONCE 05/25/18 05:30 05/25/18 05:31 UNV Ondansetron HCl (Zofran) 4 mg 1X ONCE 05/25/18 04:30 05/25/18 04:35 DC 05/25/18 04:32 4 MG Allergies Allergies Allergies Coded Allergies Type Severity Reaction Last Updated Verified lisinopril Allergy Severe Swelling 06/01/17 Yes I S O L A T I O N *CONTACT* Allergy Unknown 01/17/18 Yes Physical Exam Physical Exam Constitutional: Well developed, well nourished, no acute distress, non-toxic appearance. [] HENT: Normocephalic, atraumatic, bilateral external ears normal, oropharynx moist, nose normal. [] Eyes: PERRLA, EOMI, conjunctiva normal. [] Neck: Normal range of motion, no tenderness. [] Cardiovascular:Heart rate regular rhythm, no murmur. [] Lungs & Thorax: Bilateral breath sounds clear to auscultation. [] Abdomen: Bowel sounds normal, soft, distended with ascites, diffuse abdominal pain minimal tenderness [] Skin: Warm, dry, no erythema, no rash. [] Back: No tenderness. [] Extremities: L AV fistula, palpable thrill. [] Neurologic: Alert and oriented X 3, normal motor function, normal sensory function, no focal deficits noted. [] Psychologic: Affect normal, judgement normal, mood normal. [] Current Patient Data Vital Signs Vital Signs Date Time Temp Pulse Resp B/P (MAP) Pulse Ox O2 Delivery O2 Flow Rate FiO2 05/25/18 05:05 87 233/156 05/25/18 04:36 16 94 Room Air Lab Values Laboratory Tests Test 05/25/18 04:15 05/25/18 04:22 White Blood Count 6.2 x10^3/uL (4.0-11.0) Red Blood Count 4.44 x10^6/uL (4.30-5.70) Hemoglobin 11.9 g/dL (13.0-17.5) L Hematocrit 37.1 % (39.0-53.0) L Mean Corpuscular Volume 84 fL (79-100) Mean Corpuscular Hemoglobin 27 pg (25-35) Mean Corpuscular Hemoglobin Concent 32 g/dL (31-37) Red Cell Distribution Width 18.2 % (11.5-14.5) H Platelet Count 229 x10^3/uL (140-400) Neutrophils (%) (Auto) 74 % (31-73) H Lymphocytes (%) (Auto) 11 % (24-48) L Monocytes (%) (Auto) 9 % (0-9) Eosinophils (%) (Auto) 4 % (0-3) H Basophils (%) (Auto) 2 % (0-3) Neutrophils # (Auto) 4.6 x10^3uL (1.8-7.7) Lymphocytes # (Auto) 0.7 x10^3/uL (1.0-4.8) L Monocytes # (Auto) 0.5 x10^3/uL (0.0-1.1) Eosinophils # (Auto) 0.2 x10^3/uL (0.0-0.7) Basophils # (Auto) 0.1 x10^3/uL (0.0-0.2) Sodium Level 138 mmol/L (136-145) Potassium Level 5.1 mmol/L (3.5-5.1) Chloride Level 98 mmol/L (98-107) Carbon Dioxide Level 26 mmol/L (21-32) Anion Gap 14 (6-14) Blood Urea Nitrogen 51 mg/dL (8-26) H Creatinine 6.2 mg/dL (0.7-1.3) H Estimated GFR (Cockcroft-Gault) 11.5 BUN/Creatinine Ratio 8 (6-20) Glucose Level 98 mg/dL (70-99) Calcium Level 8.6 mg/dL (8.5-10.1) Total Bilirubin 1.0 mg/dL (0.2-1.0) Aspartate Amino Transferase (AST) 38 U/L (15-37) H Alanine Aminotransferase (ALT) 20 U/L (16-63) Alkaline Phosphatase 132 U/L (46-116) H Total Protein 7.4 g/dL (6.4-8.2) Albumin 3.6 g/dL (3.4-5.0) Albumin/Globulin Ratio 0.9 (1.0-1.7) L Lipase 220 U/L (73-393) Ethyl Alcohol Level < 10 mg/dL (0-10) Creatine Kinase 164 U/L (39-308) Troponin I Quantitative 0.126 ng/mL (0.000-0.055) Laboratory Tests 05/25/18 04:15 Laboratory Tests 05/25/18 04:15 EKG EKG [EKG: Reviewed] Radiology/Procedures Radiology/Procedures [Chest x-ray: Pending] Course & Med Decision Making Course & Med Decision Making Pertinent Labs and Imaging studies reviewed. (See chart for details) [Hypertensive urgency secondary to volume overload. Repeat labetalol given, and blood pressure remains elevated. Will initiate Cardene drip and admit to the hospitalist service.] Dragon Disclaimer Dragon Disclaimer This electronic medical record was generated, in whole or in part, using a voice recognition dictation system. Departure Departure Referrals: NO PCP (PCP) BILL FARNSWORTH DO May 25, 2018 05:52
[2018-05-25] MEDS ORDERED: ONDANSETRON PF 4 MG/2 ML VIAL. IV PRN (06:00)
--- NOTE | 2018-05-25 08:56 | NUR ---
IP: Pt has ahx of + mrsa screen on 01/26/18. Pt to be in contact precautions until there are 2 negative screens 7 days apart.
--- NOTE | 2018-05-25 09:36 | NUR ---
SS following for discharge planning. Pt is from home and currently requiring oxygen. Pt has dialysis chair time at [facility] Wednesday, , and Wednesday at 1100. SS will continue to follow for pending discharge needs.
--- NOTE | 2018-05-25 10:19 | PDOC2 ---
CARDIAC CONSULT DATE OF CONSULT Date of Consult DATE: 05/25/18 TIME: 10:09 REASON FOR CONSULT Reason for Consult: Accelerated HTN REFERRING PHYSICIAN Referring Physician: Dr. Worthington SOURCE Source: Chart review, Patient HISTORY OF PRESENT ILLNESS HISTORY OF PRESENT ILLNESS This is a 53 yo male who presented secondary to left arm pain around AV fistula site and intermittent, sharp abdominal pain for the past week. HD had to be discontinue due to left FA pain. BP was noted to be significantly elevated upon arrival, which prompted this consult. Patient reports compliance with medications. Took his medications prior to dialysis yesterday. BP normally runs high. PAST MEDICAL HISTORY Cardiovascular: HTN Pulmonary: Asthma CENTRAL NERVOUS SYSTEM: CVA, Periperal neuropathy GI: No pertinent hx Heme/Onc: Anemia NOS Hepatobiliary: No pertinent hx Psych: Anxiety Musculoskeletal: Osteoarthritis Rheumatologic: No pertinent hx Infectious disease: No pertinent hx ENT: No pertinent hx Renal/: Chronic renal failure (ESRD on HD) Endocrine: No pertinent hx Dermatology: No pertinent hx PAST SURGICAL HISTORY Past Surgical History Other (lumbar fusion, L dialysis fistula placement, corneal transplant) FAMILY HISTORY Family History: Heart Disease, Hypertension, Stroke SOCIAL HISTORY Smoke: No ALCOHOL: none Drugs: None Lives: with Family CURRENT MEDICATIONS CURRENT MEDICATIONS Current Medications Medications (Trade) Dose Ordered Sig/Sascha Route PRN Reason Start Time Stop Time Status Last Admin Dose Admin Labetalol HCl (Normodyne Iv Push) 20 mg 1X ONCE IVP 05/25/18 04:45 05/25/18 04:46 DC 05/25/18 05:05 Fentanyl Citrate (Fentanyl 2ml Vial) 50 mcg 1X ONCE IV 05/25/18 04:45 05/25/18 04:46 DC 05/25/18 04:36 Ondansetron HCl (Zofran) 4 mg 1X ONCE IV 05/25/18 04:30 05/25/18 04:35 DC 05/25/18 04:32 Diphenhydramine HCl (Benadryl) 25 mg 1X ONCE IVP 05/25/18 05:15 05/25/18 05:16 DC 05/25/18 05:12 Labetalol HCl (Normodyne Iv Push) 20 mg 1X ONCE IVP 05/25/18 06:00 05/25/18 06:01 DC 05/25/18 05:57 Nicardipine HCl 50 mg/Sodium Chloride 250 ml @ 25 mls/hr CONT PRN IV SEE I/O RECORD 05/25/18 05:45 05/25/18 06:00 ALLERGIES ALLERGIES: Coded Allergies: lisinopril (Verified Allergy, Severe, Swelling, 06/01/17) I S O L A T I O N *CONTACT* (Verified Allergy, Unknown, 01/17/18) +MRSA nares 01/15/18 ROS Review of System 14 point ROS conducted with pertinent positives noted above in HPI. PHYSICAL EXAM PHYSICAL EXAM General: Alert, Oriented X3, Cooperative, No acute distress HEENT: Atraumatic, Mucous membr. moist/pink Lungs: Clear to auscultation, Normal air movement Heart: Regular rate (SR), Normal S1, Normal S2, Other (3/6 systolic murmur to LLS border) Abdomen: Soft, No tenderness Extremities: No cyanosis, No edema Skin: No breakdown, No significant lesion Neuro: Normal speech, Sensation intact Psych/Mental Status: Mental status NL, Mood NL MUSCULOSKELETAL: Osteoarthritic changes both hands VITALS VITALS Vital Signs Date Time Temp Pulse Resp B/P (MAP) Pulse Ox O2 Delivery O2 Flow Rate FiO2 05/25/18 08:40 97.7 61 18 141/89 (106) 100 Nasal Cannula 2.0 97.7 LABS Lab: Laboratory Tests Test 05/25/18 04:15 05/25/18 04:22 05/25/18 09:15 White Blood Count 6.2 x10^3/uL (4.0-11.0) Red Blood Count 4.44 x10^6/uL (4.30-5.70) Hemoglobin 11.9 g/dL (13.0-17.5) Hematocrit 37.1 % (39.0-53.0) Mean Corpuscular Volume 84 fL (79-100) Mean Corpuscular Hemoglobin 27 pg (25-35) Mean Corpuscular Hemoglobin Concent 32 g/dL (31-37) Red Cell Distribution Width 18.2 % (11.5-14.5) Platelet Count 229 x10^3/uL (140-400) Neutrophils (%) (Auto) 74 % (31-73) Lymphocytes (%) (Auto) 11 % (24-48) Monocytes (%) (Auto) 9 % (0-9) Eosinophils (%) (Auto) 4 % (0-3) Basophils (%) (Auto) 2 % (0-3) Neutrophils # (Auto) 4.6 x10^3uL (1.8-7.7) Lymphocytes # (Auto) 0.7 x10^3/uL (1.0-4.8) Monocytes # (Auto) 0.5 x10^3/uL (0.0-1.1) Eosinophils # (Auto) 0.2 x10^3/uL (0.0-0.7) Basophils # (Auto) 0.1 x10^3/uL (0.0-0.2) Sodium Level 138 mmol/L (136-145) Potassium Level 5.1 mmol/L (3.5-5.1) Chloride Level 98 mmol/L (98-107) Carbon Dioxide Level 26 mmol/L (21-32) Anion Gap 14 (6-14) Blood Urea Nitrogen 51 mg/dL (8-26) Creatinine 6.2 mg/dL (0.7-1.3) Estimated GFR (Cockcroft-Gault) 11.5 BUN/Creatinine Ratio 8 (6-20) Glucose Level 98 mg/dL (70-99) Calcium Level 8.6 mg/dL (8.5-10.1) Total Bilirubin 1.0 mg/dL (0.2-1.0) Aspartate Amino Transf (AST/SGOT) 38 U/L (15-37) Alanine Aminotransferase (ALT/SGPT) 20 U/L (16-63) Alkaline Phosphatase 132 U/L (46-116) Total Protein 7.4 g/dL (6.4-8.2) Albumin 3.6 g/dL (3.4-5.0) Albumin/Globulin Ratio 0.9 (1.0-1.7) Lipase 220 U/L (73-393) Ethyl Alcohol Level < 10 mg/dL (0-10) Creatine Kinase 164 U/L (39-308) Troponin I Quantitative 0.126 ng/mL (0.000-0.055) 0.103 ng/mL (0.000-0.055) ECHOCARDIOGRAM ECHOCARDIOGRAM <Conclusion> There is severe concentric left ventricular hypertrophy. Left ventricle systolic function is normal. The Ejection Fraction is 60-65%. There is normal LV segmental wall motion. Doppler and Color Flow revealed mild aortic regurgitation. Doppler and Color-flow revealed mild mitral regurgitation. DATE: 04/27/17 1629 STRESS TEST STRESS TEST Conclusion 1. No evidence of EKG changes with stress testing. 2. Normal perfusion at stress/rest. 3. Low risk study. 4. EF > 60%. DATE: 04/29/17 1352 HEART CATH HEART CATH CORONARY ANGIOGRAPHY: LM is a large caliber vessel with normal angiographic appearance. LAD is a large caliber vessel with normal angiographic appearance. Ramus is a moderate caliber vessel with normal angiographic appearance. LCx is a moderate caliber non-dominant vessel with normal angiographic appearance. OM1 is a moderate caliber vessel with normal angiographic appearance. RCA is a large caliber dominant vessel with normal angiographic appearance. RPDA is a moderate caliber vessels with normal angiographic appearance. Conclusion 1. No significant obstructive coronary artery disease. 2. Elevated left sided filling pressures. Recommendations Aggressive Medical Therapy DATE: 05/10/17 1447 ASSESSMENT/PLAN ASSESSMENT/PLAN 1. Malignant HTN; well-controlled on Cardene gtt 2. Mild troponin elevation; peak 0.126. Type II, demand ischemia in the setting of uncontrolled hypertension and renal failure. Cath a year ago without any significant obstructive disease as noted above 3. ESRD on HD; Tue, Thurs, Sat 4. Hx of CVA 5. Valvular disease Recommendations ASA Resume home antiHTN therapy Titrate off Cardene Monitor to assess need for therapy titration. If remains elevated, consider adding ACEi or increasing hydralazine. Unable to increase Coreg as HR is near 60. Obtain echocardiogram to assess LV systolic function and valvular dysfunction Fluid off loading per HD ELKIN SMITH APRN May 25, 2018 10:19
[2018-05-25] MEDS: ACETAMINOPHEN 325 MG TABLET. PO PRN ×2 (10:51→20:48)
[2018-05-25] MEDS ORDERED: amLODIPine BESYLATE 10 MG TABLET PO STA (10:55)
[2018-05-25] MEDS ORDERED: CARVEDILOL 12.5 MG TABLET. PO STA (10:55)
--- NOTE | 2018-05-25 10:56 | RAD ---
EXAM: CHEST 1 VIEW History: Shortness of breath COMPARISON: 01/26/2018 TECHNIQUE: Single portable radiograph of the chest FINDINGS: Moderate cardiomegaly. There is mild prominent appearing bilateral interstitial lung markings likely mild congestive changes. IMPRESSION: 1. Mild congestive changes Electronically signed by: Faizan Stallworth MD (05/25/2018 10:53 AM) [place] [id number]
--- NOTE | 2018-05-25 11:47 | PDOC2 ---
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 HAS C/O OF AVF SITE PAIN. IT HAS BEEN WORKING WELL. HE DOES NOT DO WELL WITH CANNULATION DUE TO NEEDLE PHOBIA. ALSO HAS INCREASING ABD GIRTH. HAS HAD ASCITES AND NEEDED LARGE VOLUME PARACENTESIS IN THE PAST. LABS ARE C/W ESRD. ALSO VERY HYPERTENSIVE USUAL AND HE HAS A HX OF NONCOMPLIANCE WITH HIS BP MEDS. CURRENTLY ON CARDENE GTT. AMANDA AND SECONDARY HTN W/U HAS BEEN NEG IN THE PAST. ESRD IS DUE TO HTN Past Medical History Cardiovascular: HTN Pulmonary: Asthma CENTRAL NERVOUS SYSTEM: CVA, Periperal neuropathy GI: No pertinent hx Heme/Onc: Anemia NOS Hepatobiliary: No pertinent hx Psych: Anxiety Musculoskeletal: Osteoarthritis Rheumatologic: No pertinent hx Infectious disease: No pertinent hx ENT: No pertinent hx Renal/: Chronic renal failure (ESRD on HD) Endocrine: No pertinent hx Dermatology: No pertinent hx Past Surgical History Past Surgical History: Hernia Repair, Other Family History Family History: Heart Disease, Hypertension, Stroke Social History No ALCOHOL: none Drugs: None Lives: with Family Current Medications Current Medications Current Medications Labetalol HCl (Normodyne Iv Push) 20 mg 1X ONCE IVP Last administered on at 05:05; Start 05/25/18 at 04:45; Stop 05/25/18 at 04:46; Status DC Fentanyl Citrate (Fentanyl 2ml Vial) 50 mcg 1X ONCE IV Last administered on at 04:36; Start 05/25/18 at 04:45; Stop 05/25/18 at 04:46; Status DC Ondansetron HCl (Zofran) 4 mg 1X ONCE IV Last administered on 05/25/18at 04:32 ; Start 05/25/18 at 04:30; Stop 05/25/18 at 04:35; Status DC Diphenhydramine HCl (Benadryl) 25 mg 1X ONCE IVP Last administered on at 05:12; Start 05/25/18 at 05:15; Stop 05/25/18 at 05:16; Status DC Labetalol HCl (Normodyne Iv Push) 20 mg 1X ONCE IVP Last administered on at 05:57; Start 05/25/18 at 06:00; Stop 05/25/18 at 06:01; Status DC Nicardipine HCl 50 mg/Sodium Chloride 250 ml @ 25 mls/hr CONT PRN IV SEE I/O RECORD Last administered on 05/25/18at 06:00; Start 05/25/18 at 05:45 Ondansetron HCl (Zofran) 4 mg PRN Q8HRS PRN IV NAUSEA/VOMITING; Start 05/25/18 at 06:00; Stop 05/26/18 at 05:59 Acetaminophen (Tylenol) 650 mg PRN Q6HRS PRN PO PAIN Last administered on at 10:51; Start 05/25/18 at 07:30 Amlodipine Besylate (Norvasc) 10 mg DAILY PO ; Start 05/26/18 at 09:00 Aspirin (Ecotrin) 325 mg DAILYWBKFT PO ; Start 05/26/18 at 08:00 Carvedilol (Coreg) 12.5 mg BIDWMEALS PO ; Start 05/25/18 at 17:00 Clonidine HCl (Catapres) 0.1 mg TID PO ; Start 05/25/18 at 14:00 Furosemide (Lasix) 40 mg BID92 PO ; Start 05/25/18 at 14:00 Hydralazine HCl (Apresoline) 50 mg TID PO ; Start 05/25/18 at 14:00 Carvedilol (Coreg) 12.5 mg 1X STAT PO Last administered on 05/25/18at 11:02; Start 05/25/18 at 10:55; Stop 05/25/18 at 10:58; Status DC Amlodipine Besylate (Norvasc) 10 mg 1X STAT PO Last administered on 05/25/18at 11:02; Start 05/25/18 at 10:55; Stop 05/25/18 at 10:58; Status DC Active Scripts Active Hydrocodone-Apap 5-325 (Hydrocodone Bit/Acetaminophen) 1 Each Tablet 1 Tab PO PRN Q6HRS PRN Furosemide 40 Mg Tablet 40 Mg PO BID92 30 Days Oyster Shell 500 Mg + Vit D Tb (Calcium Carbonate/Vitamin D3) 1 Each Tablet 1 Tab PO BIDWMEALS 30 Days Alprazolam 0.25 Mg Tablet 0.25 Mg PO PRN BID PRN 10 Days Feosol (Ferrous Sulfate) 325 Mg Tablet 325 Mg PO BIDWMEALS 30 Days Aspirin Ec (Aspirin) 325 Mg Tablet.dr 325 Mg PO DAILYWBKFT 30 Days Reported Amlodipine Besylate 10 Mg Tablet 10 Mg PO DAILY Carvedilol (Carvedilol) 12.5 Mg Tablet 12.5 Mg PO BIDWMEALS Hydralazine Hcl 50 Mg Tablet 1 Tab PO TID Clonidine Hcl 0.1 Mg Tablet 0.1 Mg PO TID Allergies Allergies: Coded Allergies: lisinopril (Verified Allergy, Severe, Swelling, 06/01/17) I S O L A T I O N *CONTACT* (Verified Allergy, Unknown, 01/17/18) +MRSA nares 01/15/18 ROS General: YES: Fatigue, Malaise, Appetite PSYCHOLOGICAL ROS: YES: Anxiety Eyes: Yes Decreased vision HEENT: YES: Heacaches Respiratory: YES: Cough, Shortness of breath Cardiovascular: yes Paroxysmal Noc. Dyspnea Gastrointestinal: Yes Constipation, Yes Other (INCREASED ABD FULLNESS) Genitourinary: YES Other (NOCTURIA) Musculoskeletal: Yes Muscular Weakness Neurological: Yes Weakness Skin: Yes Dry Skin Physical Exam General: Alert, Oriented X3, Cooperative, No acute distress HEENT: Atraumatic, PERRLA, EOMI Lungs: Clear to auscultation Heart: Regular rate, Normal S1, Normal S2 Abdomen: Normal bowel sounds, Other (DISTDENDED) Extremities: Normal pulses Skin: No breakdown Neuro: Normal speech, Cranial nerves 3-12 NL Psych/Mental Status: Mental status NL, Mood NL MUSCULOSKELETAL: No joint tenderness, No deformity, No swelling Vitals VITALS Vital Signs Date Time Temp Pulse Resp B/P (MAP) Pulse Ox O2 Delivery O2 Flow Rate FiO2 05/25/18 11:02 69 161/116 05/25/18 11:00 16 96 Nasal Cannula 2.0 05/25/18 08:40 97.7 97.7 Labs Labs Laboratory Tests Test 05/25/18 04:15 05/25/18 04:22 05/25/18 09:15 White Blood Count 6.2 x10^3/uL (4.0-11.0) Red Blood Count 4.44 x10^6/uL (4.30-5.70) Hemoglobin 11.9 g/dL (13.0-17.5) Hematocrit 37.1 % (39.0-53.0) Mean Corpuscular Volume 84 fL (79-100) Mean Corpuscular Hemoglobin 27 pg (25-35) Mean Corpuscular Hemoglobin Concent 32 g/dL (31-37) Red Cell Distribution Width 18.2 % (11.5-14.5) Platelet Count 229 x10^3/uL (140-400) Neutrophils (%) (Auto) 74 % (31-73) Lymphocytes (%) (Auto) 11 % (24-48) Monocytes (%) (Auto) 9 % (0-9) Eosinophils (%) (Auto) 4 % (0-3) Basophils (%) (Auto) 2 % (0-3) Neutrophils # (Auto) 4.6 x10^3uL (1.8-7.7) Lymphocytes # (Auto) 0.7 x10^3/uL (1.0-4.8) Monocytes # (Auto) 0.5 x10^3/uL (0.0-1.1) Eosinophils # (Auto) 0.2 x10^3/uL (0.0-0.7) Basophils # (Auto) 0.1 x10^3/uL (0.0-0.2) Sodium Level 138 mmol/L (136-145) Potassium Level 5.1 mmol/L (3.5-5.1) Chloride Level 98 mmol/L (98-107) Carbon Dioxide Level 26 mmol/L (21-32) Anion Gap 14 (6-14) Blood Urea Nitrogen 51 mg/dL (8-26) Creatinine 6.2 mg/dL (0.7-1.3) Estimated GFR (Cockcroft-Gault) 11.5 BUN/Creatinine Ratio 8 (6-20) Glucose Level 98 mg/dL (70-99) Calcium Level 8.6 mg/dL (8.5-10.1) Total Bilirubin 1.0 mg/dL (0.2-1.0) Aspartate Amino Transf (AST/SGOT) 38 U/L (15-37) Alanine Aminotransferase (ALT/SGPT) 20 U/L (16-63) Alkaline Phosphatase 132 U/L (46-116) Total Protein 7.4 g/dL (6.4-8.2) Albumin 3.6 g/dL (3.4-5.0) Albumin/Globulin Ratio 0.9 (1.0-1.7) Lipase 220 U/L (73-393) Ethyl Alcohol Level < 10 mg/dL (0-10) Creatine Kinase 164 U/L (39-308) Troponin I Quantitative 0.126 ng/mL (0.000-0.055) 0.103 ng/mL (0.000-0.055) Laboratory Tests Test 05/25/18 04:15 05/25/18 04:22 05/25/18 09:15 White Blood Count 6.2 x10^3/uL (4.0-11.0) Red Blood Count 4.44 x10^6/uL (4.30-5.70) Hemoglobin 11.9 g/dL (13.0-17.5) Hematocrit 37.1 % (39.0-53.0) Mean Corpuscular Volume 84 fL (79-100) Mean Corpuscular Hemoglobin 27 pg (25-35) Mean Corpuscular Hemoglobin Concent 32 g/dL (31-37) Red Cell Distribution Width 18.2 % (11.5-14.5) Platelet Count 229 x10^3/uL (140-400) Neutrophils (%) (Auto) 74 % (31-73) Lymphocytes (%) (Auto) 11 % (24-48) Monocytes (%) (Auto) 9 % (0-9) Eosinophils (%) (Auto) 4 % (0-3) Basophils (%) (Auto) 2 % (0-3) Neutrophils # (Auto) 4.6 x10^3uL (1.8-7.7) Lymphocytes # (Auto) 0.7 x10^3/uL (1.0-4.8) Monocytes # (Auto) 0.5 x10^3/uL (0.0-1.1) Eosinophils # (Auto) 0.2 x10^3/uL (0.0-0.7) Basophils # (Auto) 0.1 x10^3/uL (0.0-0.2) Sodium Level 138 mmol/L (136-145) Potassium Level 5.1 mmol/L (3.5-5.1) Chloride Level 98 mmol/L (98-107) Carbon Dioxide Level 26 mmol/L (21-32) Anion Gap 14 (6-14) Blood Urea Nitrogen 51 mg/dL (8-26) Creatinine 6.2 mg/dL (0.7-1.3) Estimated GFR (Cockcroft-Gault) 11.5 BUN/Creatinine Ratio 8 (6-20) Glucose Level 98 mg/dL (70-99) Calcium Level 8.6 mg/dL (8.5-10.1) Total Bilirubin 1.0 mg/dL (0.2-1.0) Aspartate Amino Transf (AST/SGOT) 38 U/L (15-37) Alanine Aminotransferase (ALT/SGPT) 20 U/L (16-63) Alkaline Phosphatase 132 U/L (46-116) Total Protein 7.4 g/dL (6.4-8.2) Albumin 3.6 g/dL (3.4-5.0) Albumin/Globulin Ratio 0.9 (1.0-1.7) Lipase 220 U/L (73-393) Ethyl Alcohol Level < 10 mg/dL (0-10) Creatine Kinase 164 U/L (39-308) Troponin I Quantitative 0.126 ng/mL (0.000-0.055) 0.103 ng/mL (0.000-0.055) Assessment/Plan Assessment/Plan IMP MALIGNANT HTN-W/U FOR AMANDA NEG IN PAST NON COMPLIANCE ANEMIA ESRD ASCITES LEFT FA AVF ACCESS SITE PAIN-NO EVIDENCE OF INFECTION PLAN AVF IS WORKING WELL WITH NO EVIDENCE OF INFECTION-WILL MOVE CANNULATION SITE HD TOMORROW GI EVAL MAY NEED PARACENTESIS AMAN ONCE HTN BETTER ENC COMPLIANCE CARDENE GTT RESUME HOME MEDS OSIRIS MEADOWS MD May 25, 2018 11:47
--- NOTE | 2018-05-25 12:03 | PDOC2 ---
GI CONSULT Reason For Consult: Ascites HPI: HPI: 53 y/o male evaluated in ER yesterday c/o LUE pain during dialysis (had to stop early). Noted w/ significant HTN in ER (290/181). Some question of compliance w/ meds at home. GI-alan, admitted last week w/ abdominal pain and new onset ascites. Had paracentesis on 05/19 w/ removal of 6.6L, cytology negative. SERGIO, AMA, ASMA, and viral Hepatitis panel negative/normal. Now w/ recurrent abdominal distention/ fluid. Denies h/o liver disease and CHF, says legs have been swollen. No reflux/heartburn, dysphagia, n/v, change in appetite, diarrhea, constipation , hematochezia, melena, or hematemesis. Does report blowing blood clots out of his left nostril. Not entirely sure, but might have had EGD and/or colonoscopy years ago. Denies GB or liver history. Imaging last admission (below) noted possible GB adenomyomatosis. No NSAIDs. Takes oxycodone for back pain and headaches - he's out of this. PMH: PMH: HTN, asthma, CVA, valvular disease, peripheral neuropathy, anemia, anxiety, OA, ESRD on HD neck surgery, left dialysis fistula placement, bilateral corneal transplants, lumbar fusion, cardiac cath FH: Family History: No pertinent hx (denies GI cancers and liver disease) Social History: Smoke: No ALCOHOL: none (says drank some in the past - never heavily and none now) Drugs: None ROS: GEN: Denies fevers, chills, sweats HEENT: Denies blurred vision, sore throat CV: Denies chest pain RESP: Denies shortness of air, cough GI: Per HPI : Denies hematuria, dysuria ENDO: Denies weight changes NEURO: Denies confusion, dizziness MSK: back pain, BLE swelling SKIN: Denies jaundice, pruritus Vitals: Vitals: Vital Signs Date Time Temp Pulse Resp B/P (MAP) Pulse Ox O2 Delivery O2 Flow Rate FiO2 05/25/18 11:02 69 161/116 05/25/18 11:00 16 96 Nasal Cannula 2.0 05/25/18 08:40 97.7 97.7 Labs: Labs: Laboratory Tests Test 2/13/19 04:15 05/25/18 04:22 05/25/18 09:15 White Blood Count 6.2 x10^3/uL (4.0-11.0) Red Blood Count 4.44 x10^6/uL (4.30-5.70) Hemoglobin 11.9 g/dL (13.0-17.5) Hematocrit 37.1 % (39.0-53.0) Mean Corpuscular Volume 84 fL (79-100) Mean Corpuscular Hemoglobin 27 pg (25-35) Mean Corpuscular Hemoglobin Concent 32 g/dL (31-37) Red Cell Distribution Width 18.2 % (11.5-14.5) Platelet Count 229 x10^3/uL (140-400) Neutrophils (%) (Auto) 74 % (31-73) Lymphocytes (%) (Auto) 11 % (24-48) Monocytes (%) (Auto) 9 % (0-9) Eosinophils (%) (Auto) 4 % (0-3) Basophils (%) (Auto) 2 % (0-3) Neutrophils # (Auto) 4.6 x10^3uL (1.8-7.7) Lymphocytes # (Auto) 0.7 x10^3/uL (1.0-4.8) Monocytes # (Auto) 0.5 x10^3/uL (0.0-1.1) Eosinophils # (Auto) 0.2 x10^3/uL (0.0-0.7) Basophils # (Auto) 0.1 x10^3/uL (0.0-0.2) Sodium Level 138 mmol/L (136-145) Potassium Level 5.1 mmol/L (3.5-5.1) Chloride Level 98 mmol/L (98-107) Carbon Dioxide Level 26 mmol/L (21-32) Anion Gap 14 (6-14) Blood Urea Nitrogen 51 mg/dL (8-26) Creatinine 6.2 mg/dL (0.7-1.3) Estimated GFR (Cockcroft-Gault) 11.5 BUN/Creatinine Ratio 8 (6-20) Glucose Level 98 mg/dL (70-99) Calcium Level 8.6 mg/dL (8.5-10.1) Total Bilirubin 1.0 mg/dL (0.2-1.0) Aspartate Amino Transf (AST/SGOT) 38 U/L (15-37) Alanine Aminotransferase (ALT/SGPT) 20 U/L (16-63) Alkaline Phosphatase 132 U/L (46-116) Total Protein 7.4 g/dL (6.4-8.2) Albumin 3.6 g/dL (3.4-5.0) Albumin/Globulin Ratio 0.9 (1.0-1.7) Lipase 220 U/L (73-393) Ethyl Alcohol Level < 10 mg/dL (0-10) Creatine Kinase 164 U/L (39-308) Troponin I Quantitative 0.126 ng/mL (0.000-0.055) 0.103 ng/mL (0.000-0.055) Allergies: Coded Allergies: lisinopril (Verified Allergy, Severe, Swelling, 06/01/17) I S O L A T I O N *CONTACT* (Verified Allergy, Unknown, 01/17/18) +MRSA nares 01/15/18 Medications: Current Medications Medications (Trade) Dose Ordered Sig/Sascha Route PRN Reason Start Time Stop Time Status Last Admin Dose Admin Labetalol HCl (Normodyne Iv Push) 20 mg 1X ONCE IVP 05/25/18 04:45 05/25/18 04:46 DC 05/25/18 05:05 Fentanyl Citrate (Fentanyl 2ml Vial) 50 mcg 1X ONCE IV 05/25/18 04:45 05/25/18 04:46 DC 05/25/18 04:36 Ondansetron HCl (Zofran) 4 mg 1X ONCE IV 05/25/18 04:30 05/25/18 04:35 DC 05/25/18 04:32 Diphenhydramine HCl (Benadryl) 25 mg 1X ONCE IVP 05/25/18 05:15 05/25/18 05:16 DC 05/25/18 05:12 Labetalol HCl (Normodyne Iv Push) 20 mg 1X ONCE IVP 05/25/18 06:00 05/25/18 06:01 DC 05/25/18 05:57 Nicardipine HCl 50 mg/Sodium Chloride 250 ml @ 25 mls/hr CONT PRN IV SEE I/O RECORD 05/25/18 05:45 05/25/18 06:00 Acetaminophen (Tylenol) 650 mg PRN Q6HRS PRN PO PAIN 05/25/18 07:30 05/25/18 10:51 Carvedilol (Coreg) 12.5 mg 1X STAT PO 05/25/18 10:55 05/25/18 10:58 DC 05/25/18 11:02 Amlodipine Besylate (Norvasc) 10 mg 1X STAT PO 05/25/18 10:55 05/25/18 10:58 DC 05/25/18 11:02 Imaging: Imaging: CXR 05/25/18 IMPRESSION: 1. Mild congestive changes. CT A/P 05/19/18 IMPRESSION: 1. Large ascites. No clear intra-abdominal cause is identified without contrast. 2. Moderate cardiomegaly. 3. Small umbilical hernia. Paracentesis 05/19/18 6.6 L of serous ascites was removed. Abd US 05/20/18 IMPRESSION: 1. Ascites. 2. Mild thickened appearance of the gallbladder wall with calcifications and ringdown artifact projecting from the gallbladder wall could be adenomyomatosis. 3. Echogenic appearing bilateral kidneys probably due to medical renal disease. PE: GEN: NAD HEENT: Atraumatic, PERRL LUNGS: CTAB anteriorly, NC HEART: RRR ABD: BS+ but quietish, distended/ascites, mild discomfort mostly to left EXTREMITY/SKIN: SCDs and compression stockings on, though doesn't seem to have significant edema NEURO/PSYCH: A & O 3 A/P: A/P: LUE/fistula pain, ESRD on HD, HTN emergency Abd distention/recurrent ascites - s/p paracentesis 05/19/18 CRC screen - unclear, possible colonoscopy years ago Chronic anemia - iron 42 w/ sat 14 last week Chronic pain -- Negative workup last week. Reviewed w/ Dr. Thurman - check doppler and ceruloplasmin. Paracentesis as needed. NEGAR CLEMONS May 25, 2018 12:03
[2018-05-25] MEDS: FUROSEMIDE 40 MG TABLET. PO SCH (13:18)
[2018-05-25] MEDS: cloNIDine HCL 0.1 MG TABLET PO SCH ×2 (13:18→20:48)
--- NOTE | 2018-05-25 14:18 | HP ---
ADMIT DATE: 05/25/2018 CHIEF COMPLAINT: Shortness of breath, left arm pain and increased abdominal girth. HISTORY OF PRESENT ILLNESS: The patient is a pleasant 53-year-old male, well known to our service. He is noncompliant with his medications. He is on dialysis. I think he misses it periodically. He presented to the ER with above chief complaints. Basically, he is in accelerated hypertension with pressures into the 200s with the highest pressure of 290/181. He is also volume overloaded, short of breath, edematous, rates his symptoms at 10/10. Symptoms are worse with moving. He tried increasing his home meds, but that did not work. I do not think he really did that because he does not really follow the home medication regimen. I discussed the case with ER physician. We are going to admit the patient with consultation to Dr. Bhat to get him dialyzed. PAST MEDICAL HISTORY: Noncompliance, end-stage renal disease, on dialysis; hypertension, hyperlipidemia, asthma, dialysis graft with removal, fistula, hernia repair, cervical fusion. ALLERGIES: LISINOPRIL. FAMILY HISTORY: Coronary artery disease. SOCIAL HISTORY: He does not drink, smoke or take drugs. MEDICATIONS: Reviewed. He is supposed to be on 10 home medications including iron, clonidine, hydralazine, Coreg, amlodipine, aspirin, hydrocodone, alprazolam, calcium and Lasix. REVIEW OF SYSTEMS: GENERAL: No history of weight change, weakness or fevers. SKIN: No bruising, hair changes or rashes. EYES: No blurred, double or loss of vision. NOSE AND THROAT: No history of nosebleeds, hoarseness or sore throat. HEART: No history of palpitations, chest pain or shortness of breath on exertion. LUNGS: He complains of shortness of breath. GASTROINTESTINAL: Denies changes in appetite, nausea, vomiting, diarrhea or constipation. GENITOURINARY: No history of frequency, urgency, hesitancy or nocturia. NEUROLOGIC: Denies history of numbness, tingling, tremor or weakness. PSYCHIATRIC: No history of panic, anxiety or depression. ENDOCRINE: No history of heat or cold intolerance, polyuria or polydipsia. EXTREMITIES: Denies muscle weakness, joint pain, pain on walking or stiffness. PHYSICAL EXAMINATION: VITAL SIGNS: Temperature 97, pulse 60, respirations 16, blood pressure 140/100. GENERAL: He is alert, but falls back to sleep in the ICU. HEART: Distant S1, S2 with a soft S3. LUNGS: Bibasilar crackles. ABDOMEN: Distended, decreased bowel sounds. EXTREMITIES: 1+ edema. SKIN: No rashes. PSYCHIATRIC: He is depressed. VASCULAR: Good capillary refill. ENDOCRINE: No thyromegaly. LYMPHATICS: No cervical nodes. HEMATOPOIETIC: No bruising. LABORATORY DATA: Hemoglobin is 11.9. BUN is 51, creatinine 6.2. Troponin 0.126. Drug screen negative for alcohol. Chest x-ray shows mild congestive changes. ASSESSMENT AND PLAN: Volume overload, severe accelerated hypertension. The patient is being admitted to the ICU. We will consult Nephrology. Resume his home medicines, IV labetalol, p.r.n. fentanyl, p.r.n. Zofran, frequent labs. PROGNOSIS: Guarded. ENRICO GUAN DO DR: YODIT/savannah JOB#: [id number] / [id number]
--- NOTE | 2018-05-25 15:33 | RAD ---
Deep Doppler hepatic ultrasound, 05/25/2018: HISTORY: Portal hypertension with ascites Duplex evaluation of the hepatic vasculature was performed including grayscale, color-flow and spectral Doppler analysis. The portal vein is patent and demonstrates a normal direction of flow. The hepatic veins are patent. The hepatic artery is patent. A moderate volume of ascites is noted. IMPRESSION: 1. Patent portal vein demonstrating hepatopedal flow. 2. Moderate volume of ascites Electronically signed by: Dominick Prajapati MD (05/25/2018 3:30 PM) [facility]
[2018-05-25] MEDS: CARVEDILOL 12.5 MG TABLET. PO SCH (17:17)
[2018-05-25] MEDS ORDERED: fentaNYL PF VIAL 100 MCG/2 ML VIAL IV PRN (17:45)
[2018-05-26] VITALS (7 sets, daily range): BP systolic 97–163; BP diastolic 62–106
--- NOTE | 2018-05-26 01:45 | NUR ---
+ MRSA swab, in contact isolation. Has been sleeping unless awoken for meds and VS.
--- NOTE | 2018-05-26 03:58 | NUR ---
Awake, dangling at bedside. "I need a sandwich and ice cream." BP 117/77, pulse 59. No c/o pain.
--- NOTE | 2018-05-26 05:30 | NUR ---
Refused lab draw, "hurts too much." Will draw labs in assumed dialysis today.
[2018-05-26] MEDS: CALCIUM CARB/VIT D3 500/200 TABLET. PO SCH ×2 (08:28→17:19)
[2018-05-26] MEDS: FERROUS SULFATE 325 MG TABLET. PO SCH ×2 (08:28→17:19)
[2018-05-26] MEDS: HYDROcodone/APAP 5/325MG 1 TAB TABLET PO PRN ×3 (08:29→23:50)
[2018-05-26] MEDS: CARVEDILOL 12.5 MG TABLET. PO SCH ×2 (09:25→17:00)
[2018-05-26] MEDS: FUROSEMIDE 40 MG TABLET. PO SCH ×2 (09:27→15:26)
[2018-05-26] MEDS: cloNIDine HCL 0.1 MG TABLET PO SCH ×3 (09:27→20:16)
--- NOTE | 2018-05-26 09:29 | NUR ---
Patient to dialyze today. Non administered am Clonadine, Hydralazine, and lasix. Held Norvasc till patient returns from Dialysis run
--- NOTE | 2018-05-26 10:32 | PDOC ---
PROGRESS NOTES Chief Complaint Chief Complaint CC: SOA, lf arm pain, increased abdominal girth Accelerated HTN ESRD on dialysis HLD Asthma Noncompliance History of Present Illness History of Present Illness Pt is 53 y/o male who presented to the ED with SOA, lf arm pain and increasing abdominal girth. Today he was seen and examined in dialysis. He is complaining of AV fistula pain in his left arm. He states that is why he was brought to the hospital. He admits to missing dialysis from time to time. He states he is scheduled for paracentesis. He has no other complaints at this time. I discussed the pt with his RN. Vitals Vitals Vital Signs Date Time Temp Pulse Resp B/P (MAP) Pulse Ox O2 Delivery O2 Flow Rate FiO2 05/26/18 09:25 65 146/93 05/26/18 08:29 18 Room Air 05/26/18 08:00 97.9 98 97.9 05/25/18 20:00 1.0 Physical Exam General: Alert, Oriented X3, Cooperative, No acute distress Heart: Regular rate, Normal S1, Normal S2 Lungs: Clear, Other (No wheezing or crackles) Abdomen: Normal bowel sounds, Other (Distended, umbilical hernia) Extremities: No clubbing, No cyanosis, Normal pulses Skin: No breakdown Labs LABS Laboratory Tests Test 05/25/18 11:54 Troponin I Quantitative 0.100 ng/mL (0.000-0.055) Review of Systems Review of Systems Gen: denies fever, chills Heart: denies CP, palp Lung: denies current SOA, cough GI: denies N/V/D, complains of bloating Ext: complains of left arm pain Assessment and Plan Assessmemt and Plan Assessment CC: SOA, lf arm pain, increased abdominal girth Accelerated HTN ESRD on dialysis HLD Asthma Noncompliance Plan Paracentesis - GI is following HD - nephrology is following Follow daily labs PT/OT Home meds Appreciate subspecialist input Comment Review of Relevant I have reviewed the following items benjamin (where applicable) has been applied. Labs Laboratory Tests Test 05/25/18 04:15 05/25/18 04:22 05/25/18 08:55 05/25/18 09:15 White Blood Count 6.2 x10^3/uL (4.0-11.0) Red Blood Count 4.44 x10^6/uL (4.30-5.70) Hemoglobin 11.9 g/dL (13.0-17.5) Hematocrit 37.1 % (39.0-53.0) Mean Corpuscular Volume 84 fL (79-100) Mean Corpuscular Hemoglobin 27 pg (25-35) Mean Corpuscular Hemoglobin Concent 32 g/dL (31-37) Red Cell Distribution Width 18.2 % (11.5-14.5) Platelet Count 229 x10^3/uL (140-400) Neutrophils (%) (Auto) 74 % (31-73) Lymphocytes (%) (Auto) 11 % (24-48) Monocytes (%) (Auto) 9 % (0-9) Eosinophils (%) (Auto) 4 % (0-3) Basophils (%) (Auto) 2 % (0-3) Neutrophils # (Auto) 4.6 x10^3uL (1.8-7.7) Lymphocytes # (Auto) 0.7 x10^3/uL (1.0-4.8) Monocytes # (Auto) 0.5 x10^3/uL (0.0-1.1) Eosinophils # (Auto) 0.2 x10^3/uL (0.0-0.7) Basophils # (Auto) 0.1 x10^3/uL (0.0-0.2) Sodium Level 138 mmol/L (136-145) Potassium Level 5.1 mmol/L (3.5-5.1) Chloride Level 98 mmol/L (98-107) Carbon Dioxide Level 26 mmol/L (21-32) Anion Gap 14 (6-14) Blood Urea Nitrogen 51 mg/dL (8-26) Creatinine 6.2 mg/dL (0.7-1.3) Estimated GFR (Cockcroft-Gault) 11.5 BUN/Creatinine Ratio 8 (6-20) Glucose Level 98 mg/dL (70-99) Calcium Level 8.6 mg/dL (8.5-10.1) Total Bilirubin 1.0 mg/dL (0.2-1.0) Aspartate Amino Transf (AST/SGOT) 38 U/L (15-37) Alanine Aminotransferase (ALT/SGPT) 20 U/L (16-63) Alkaline Phosphatase 132 U/L (46-116) Total Protein 7.4 g/dL (6.4-8.2) Albumin 3.6 g/dL (3.4-5.0) Albumin/Globulin Ratio 0.9 (1.0-1.7) Lipase 220 U/L (73-393) Ethyl Alcohol Level < 10 mg/dL (0-10) Creatine Kinase 164 U/L (39-308) Troponin I Quantitative 0.126 ng/mL (0.000-0.055) 0.103 ng/mL (0.000-0.055) Nasal Screen MRSA (PCR) Positive (Negative) Test 05/25/18 11:54 Troponin I Quantitative 0.100 ng/mL (0.000-0.055) Laboratory Tests Test 05/25/18 11:54 Troponin I Quantitative 0.100 ng/mL (0.000-0.055) Medications Current Medications Labetalol HCl (Normodyne Iv Push) 20 mg 1X ONCE IVP Last administered on at 05:05; Start 05/25/18 at 04:45; Stop 05/25/18 at 04:46; Status DC Fentanyl Citrate (Fentanyl 2ml Vial) 50 mcg 1X ONCE IV Last administered on at 04:36; Start 05/25/18 at 04:45; Stop 05/25/18 at 04:46; Status DC Ondansetron HCl (Zofran) 4 mg 1X ONCE IV Last administered on 05/25/18at 04:32 ; Start 05/25/18 at 04:30; Stop 05/25/18 at 04:35; Status DC Diphenhydramine HCl (Benadryl) 25 mg 1X ONCE IVP Last administered on at 05:12; Start 05/25/18 at 05:15; Stop 05/25/18 at 05:16; Status DC Labetalol HCl (Normodyne Iv Push) 20 mg 1X ONCE IVP Last administered on at 05:57; Start 05/25/18 at 06:00; Stop 05/25/18 at 06:01; Status DC Nicardipine HCl 50 mg/Sodium Chloride 250 ml @ 25 mls/hr CONT PRN IV SEE I/O RECORD Last administered on 05/25/18at 06:00; Start 05/25/18 at 05:45 Ondansetron HCl (Zofran) 4 mg PRN Q8HRS PRN IV NAUSEA/VOMITING; Start 05/25/18 at 06:00; Stop 05/26/18 at 05:59; Status DC Acetaminophen (Tylenol) 650 mg PRN Q6HRS PRN PO PAIN Last administered on at 20:48; Start 05/25/18 at 07:30 Amlodipine Besylate (Norvasc) 10 mg DAILY PO ; Start 05/26/18 at 09:00 Aspirin (Ecotrin) 325 mg DAILYWBKFT PO ; Start 05/26/18 at 08:00 Carvedilol (Coreg) 12.5 mg BIDWMEALS PO Last administered on 05/26/18at 09:25; Start 05/25/18 at 17:00 Clonidine HCl (Catapres) 0.1 mg TID PO Last administered on 05/25/18at 20:48; Start 05/25/18 at 14:00 Furosemide (Lasix) 40 mg BID92 PO Last administered on 05/25/18at 13:18; Start 05/25/18 at 14:00 Hydralazine HCl (Apresoline) 50 mg TID PO Last administered on 05/25/18 20:48 ; Start 05/25/18 at 14:00 Carvedilol (Coreg) 12.5 mg 1X STAT PO Last administered on 05/25/18 11:02; Start 05/25/18 at 10:55; Stop 05/25/18 at 10:58; Status DC Amlodipine Besylate (Norvasc) 10 mg 1X STAT PO Last administered on 05/25/18at 11:02; Start 05/25/18 at 10:55; Stop 05/25/18 at 10:58; Status DC Fentanyl Citrate (Fentanyl 2ml Vial) 50 mcg PRN Q2HR PRN IV PAIN; Start at 17:45 Alprazolam (Xanax) 0.25 mg PRN BID PRN PO ANXIETY / AGITATION; Start 05/26/18 at 07:30 Calcium/Vitamin D (Oscal D 500mg/ 200uts) 1 tab BIDWMEALS PO Last administered on 05/26/18at 08:28; Start 05/26/18 at 08:00 Ferrous Sulfate (Feosol) 325 mg BIDWMEALS PO Last administered on 05/26/18at 08: 28; Start 05/26/18 at 08:00 Acetaminophen/ Hydrocodone Bitart (Lortab 5/325) 1 tab PRN Q6HRS PRN PO SEVERE PAIN Last administered on 05/26/18at 08:29; Start 05/26/18 at 07:30 Active Scripts Active Hydrocodone-Apap 5-325 (Hydrocodone Bit/Acetaminophen) 1 Each Tablet 1 Tab PO PRN Q6HRS PRN Furosemide 40 Mg Tablet 40 Mg PO BID92 30 Days Oyster Shell 500 Mg + Vit D Tb (Calcium Carbonate/Vitamin D3) 1 Each Tablet 1 Tab PO BIDWMEALS 30 Days Alprazolam 0.25 Mg Tablet 0.25 Mg PO PRN BID PRN 10 Days Feosol (Ferrous Sulfate) 325 Mg Tablet 325 Mg PO BIDWMEALS 30 Days Aspirin Ec (Aspirin) 325 Mg Tablet.dr 325 Mg PO DAILYWBKFT 30 Days Reported Amlodipine Besylate 10 Mg Tablet 10 Mg PO DAILY Carvedilol (Carvedilol) 12.5 Mg Tablet 12.5 Mg PO BIDWMEALS Hydralazine Hcl 50 Mg Tablet 1 Tab PO TID Clonidine Hcl 0.1 Mg Tablet 0.1 Mg PO TID Vitals/I & O Vital Sign - Last 24 Hours 05/25/18 05/25/18 05/25/18 05/25/18 11:00 11:02 11:02 12:00 Temp 97.8 97.8 Pulse 70 69 69 66 Resp 16 16 B/P (MAP) 172/112 (132) 161/116 161/116 144/95 (111) Pulse Ox 96 99 O2 Delivery Nasal Cannula Nasal Cannula O2 Flow Rate 2.0 2.0 05/25/18 05/25/18 05/25/18 05/25/18 12:00 13:00 13:18 13:19 Pulse 65 93 64 Resp 16 B/P (MAP) 146/100 (115) 146/95 146/99 Pulse Ox 98 O2 Delivery Nasal Cannula Nasal Cannula O2 Flow Rate 2.0 2.0 05/25/18 05/25/18 05/25/18 05/25/18 14:00 16:00 17:17 20:00 Temp 98.1 98.4 98.1 98.4 Pulse 62 59 59 58 Resp 16 20 B/P (MAP) 115/71 (86) 109/74 (86) 109/74 124/80 (95) Pulse Ox 95 100 O2 Delivery Nasal Cannula Nasal Cannula O2 Flow Rate 2.0 1.0 05/25/18 05/25/18 05/25/18 05/25/18 20:00 20:48 20:48 23:59 Pulse 58 58 55 Resp 20 B/P (MAP) 124/80 124/80 112/78 (89) O2 Delivery Nasal Cannula O2 Flow Rate 1.0 05/26/18 05/26/18 05/26/18 05/26/18 03:55 08:00 08:00 08:29 Temp 98.2 97.9 98.2 97.9 Pulse 59 65 Resp 20 20 18 B/P (MAP) 117/77 (90) 146/93 (110) Pulse Ox 98 O2 Delivery Room Air Room Air Room Air 05/26/18 09:25 Pulse 65 B/P (MAP) 146/93 Intake and Output 05/25/18 05/25/18 05/26/18 15:00 23:00 07:00 Intake Total 240 ml 510 ml Output Total 0 ml 0 ml 300 ml Balance 240 ml 510 ml -300 ml ENRICO GUAN III DO May 26, 2018 10:32
[2018-05-26] MEDS ORDERED: LIDOCAINE 1% PF 2 ML VIAL. ONE ×2 (10:35→11:00)
--- NOTE | 2018-05-26 12:07 | PDOC ---
Renal-Progress Notes Subjective Notes Notes NO NEW COMPLAINTS History of Present Illness Hx of present illness STABLE Vitals Vitals Vital Signs Date Time Temp Pulse Resp B/P (MAP) Pulse Ox O2 Delivery O2 Flow Rate FiO2 05/26/18 09:25 65 146/93 05/26/18 08:29 18 Room Air 05/26/18 08:00 97.9 98 97.9 05/25/18 20:00 1.0 Weight Weight [ ] I.O. Intake and Output Intake and Output 05/26/18 06:59 Intake Total 750 ml Output Total 300 ml Balance 450 ml Intake Oral 750 ml Output Urine Total 300 ml Review of Systems Constitutional: yes: alert, oriented Ears/Nose/Throat: Yes: no symptom reported Eyes: Yes: no symptom reported Pulmonary: Yes no symptom reported Cardiovascular: Yes no symptom reported Gastrointestional: Yes: other (SWELLING) Musculoskeletal: Yes: no symptom reported Skin: Yes no symptom reported Psychiatric/Neurological: Yes: no symptom reported Endocrine: Yes: no symptom reported Physical Exam General Appearance: no apparent distress Skin: warm Respiratory: bilateral CTA Heart: S1S2, RRR Abdomen: soft, bowel sounds present Genitourinary: bladder flat Extremities: pulses present Neurology: alert, oriented Musculoskeletal: Osteoarthritis Assessment Assessment IMP MALIGNANT HTN-BETTER ESRD ANEMIA ASCITES PLAN HD TODAY UF TO DW WILL CONSIDER CHANGING TO PD OP WILL FOLLOW OSIRIS MEADOWS MD May 26, 2018 12:07
[2018-05-26] MEDS ORDERED: IV NORMAL SALINE 1000ML BAG 1,000 ML IV PRN ×2 (12:22)
[2018-05-26 12:29] LABS: BASO # 0.1 x10^3/uL (0.0-0.2); BASO % 2 % (0-3); EOS # 0.2 x10^3/uL (0.0-0.7); EOS % 8 % (0-3); HEMATOCRIT 33.7 % (39.0-53.0); HEMOGLOBIN 10.9 g/dL (13.0-17.5); LYMPH # 0.7 x10^3/uL (1.0-4.8); LYMPH % 23 % (24-48); MEAN CORPUSCULAR HEMOGLOBIN 27 pg (25-35); MEAN CORPUSCULAR HGB CONC 32 g/dL (31-37); MEAN CORPUSCULAR VOLUME 84 fL (79-100); MONO # 0.2 x10^3/uL (0.0-1.1); MONO % 8 % (0-9); NEUT # 1.8 x10^3uL (1.8-7.7); NEUT % 59 % (31-73); PLATELET COUNT 204 x10^3/uL (140-400); RED BLOOD COUNT 4.04 x10^6/uL (4.30-5.70); RED CELL DISTRIBUTION WIDTH 17.8 % (11.5-14.5); WHITE BLOOD COUNT 3.1 x10^3/uL (4.0-11.0)
[2018-05-26] MEDS ORDERED: DIALYSIS PATIENT. MC PRN (12:30)
[2018-05-26 12:46] LABS: ALBUMIN 2.5 g/dL (3.4-5.0); ALBUMIN/GLOBULIN RATIO 0.7 (1.0-1.7); CALCIUM 8.2 mg/dL (8.5-10.1); GFR 11.9; POTASSIUM 4.2 mmol/L (3.5-5.1); TOTAL BILIRUBIN 0.6 mg/dL (0.2-1.0); TOTAL PROTEIN 5.9 g/dL (6.4-8.2)
--- NOTE | 2018-05-26 13:13 | PDOC ---
CARDIO Progress Notes Date and Time Date of Service 05/26/2018 Time of Evaluation 0850 Subjective Subjective: No Chest Pain, No shortness of breath, No Palpitations Vitals Vitals Vital Signs Date Time Temp Pulse Resp B/P (MAP) Pulse Ox O2 Delivery O2 Flow Rate FiO2 05/26/18 09:25 65 146/93 05/26/18 08:29 18 Room Air 05/26/18 08:00 97.9 98 97.9 05/25/18 20:00 1.0 Weight Weight [ ] Input and Output Intake and Output Intake and Output 05/26/18 07:00 Intake Total 750 ml Output Total 300 ml Balance 450 ml Intake Oral 750 ml Output Urine Total 300 ml Laboratory Labs Laboratory Tests Test 05/26/18 12:10 White Blood Count 3.1 x10^3/uL (4.0-11.0) Red Blood Count 4.04 x10^6/uL (4.30-5.70) Hemoglobin 10.9 g/dL (13.0-17.5) Hematocrit 33.7 % (39.0-53.0) Mean Corpuscular Volume 84 fL (79-100) Mean Corpuscular Hemoglobin 27 pg (25-35) Mean Corpuscular Hemoglobin Concent 32 g/dL (31-37) Red Cell Distribution Width 17.8 % (11.5-14.5) Platelet Count 204 x10^3/uL (140-400) Neutrophils (%) (Auto) 59 % (31-73) Lymphocytes (%) (Auto) 23 % (24-48) Monocytes (%) (Auto) 8 % (0-9) Eosinophils (%) (Auto) 8 % (0-3) Basophils (%) (Auto) 2 % (0-3) Neutrophils # (Auto) 1.8 x10^3uL (1.8-7.7) Lymphocytes # (Auto) 0.7 x10^3/uL (1.0-4.8) Monocytes # (Auto) 0.2 x10^3/uL (0.0-1.1) Eosinophils # (Auto) 0.2 x10^3/uL (0.0-0.7) Basophils # (Auto) 0.1 x10^3/uL (0.0-0.2) Sodium Level 139 mmol/L (136-145) Potassium Level 4.2 mmol/L (3.5-5.1) Chloride Level 102 mmol/L (98-107) Carbon Dioxide Level 27 mmol/L (21-32) Anion Gap 10 (6-14) Blood Urea Nitrogen 49 mg/dL (8-26) Creatinine 6.0 mg/dL (0.7-1.3) Estimated GFR (Cockcroft-Gault) 11.9 BUN/Creatinine Ratio 8 (6-20) Glucose Level 100 mg/dL (70-99) Calcium Level 8.2 mg/dL (8.5-10.1) Total Bilirubin 0.6 mg/dL (0.2-1.0) Aspartate Amino Transf (AST/SGOT) 11 U/L (15-37) Alanine Aminotransferase (ALT/SGPT) 12 U/L (16-63) Alkaline Phosphatase 93 U/L (46-116) Total Protein 5.9 g/dL (6.4-8.2) Albumin 2.5 g/dL (3.4-5.0) Albumin/Globulin Ratio 0.7 (1.0-1.7) Review of Systems Constitutional: yes: alert, oriented Ears/Nose/Throat: Yes: no symptom reported Eyes: Yes: no symptom reported Pulmonary: Yes no symptom reported Cardiovascular: Yes no symptom reported Gastrointestional: Yes: other (SWELLING) Musculoskeletal: Yes: no symptom reported Skin: Yes no symptom reported Psychiatric/Neurological: Yes: no symptom reported Endocrine: Yes: no symptom reported Physical Exam HEENT: Neck Supple W Full Motion Chest: Symmetric LUNGS: Other (basilar crackles) Heart: RRR (SR iwth pacs) Abdomen: Other Extremities: No Edema, No Calf Tenderness Neurology: alert, oriented, follow commands Assessment Assessment 1. Malignant HTN; well controlled, responding well with current BP regimen 2. Mild troponin elevation; peak 0.126. Type II, demand ischemia in the setting of uncontrolled hypertension and renal failure. Cath a year ago without any significant obstructive disease as noted above 3. ESRD 4. Hx of CVA 5. Valvular disease 6. Ascites; potential paracentesis per GI Recommendations 1. ASA, continue with current BP regimen 2. TTE pending 3. Fluid off loading per HD MARYLOU PETERSON APRN May 26, 2018 13:13
--- NOTE | 2018-05-26 13:16 | PDOC ---
G I PROGRESS NOTE Subjective No specific complaints. Ascites not uncomfortable. Physical Exam Lungs clear. RRR Abdomen soft with ascites. Review of Relevant I have reviewed the following items benjamin (where applicable) has been applied. Labs Laboratory Tests Test 05/25/18 04:15 05/25/18 04:22 05/25/18 08:55 05/25/18 09:15 White Blood Count 6.2 x10^3/uL (4.0-11.0) Red Blood Count 4.44 x10^6/uL (4.30-5.70) Hemoglobin 11.9 g/dL (13.0-17.5) Hematocrit 37.1 % (39.0-53.0) Mean Corpuscular Volume 84 fL (79-100) Mean Corpuscular Hemoglobin 27 pg (25-35) Mean Corpuscular Hemoglobin Concent 32 g/dL (31-37) Red Cell Distribution Width 18.2 % (11.5-14.5) Platelet Count 229 x10^3/uL (140-400) Neutrophils (%) (Auto) 74 % (31-73) Lymphocytes (%) (Auto) 11 % (24-48) Monocytes (%) (Auto) 9 % (0-9) Eosinophils (%) (Auto) 4 % (0-3) Basophils (%) (Auto) 2 % (0-3) Neutrophils # (Auto) 4.6 x10^3uL (1.8-7.7) Lymphocytes # (Auto) 0.7 x10^3/uL (1.0-4.8) Monocytes # (Auto) 0.5 x10^3/uL (0.0-1.1) Eosinophils # (Auto) 0.2 x10^3/uL (0.0-0.7) Basophils # (Auto) 0.1 x10^3/uL (0.0-0.2) Sodium Level 138 mmol/L (136-145) Potassium Level 5.1 mmol/L (3.5-5.1) Chloride Level 98 mmol/L (98-107) Carbon Dioxide Level 26 mmol/L (21-32) Anion Gap 14 (6-14) Blood Urea Nitrogen 51 mg/dL (8-26) Creatinine 6.2 mg/dL (0.7-1.3) Estimated GFR (Cockcroft-Gault) 11.5 BUN/Creatinine Ratio 8 (6-20) Glucose Level 98 mg/dL (70-99) Calcium Level 8.6 mg/dL (8.5-10.1) Total Bilirubin 1.0 mg/dL (0.2-1.0) Aspartate Amino Transf (AST/SGOT) 38 U/L (15-37) Alanine Aminotransferase (ALT/SGPT) 20 U/L (16-63) Alkaline Phosphatase 132 U/L (46-116) Total Protein 7.4 g/dL (6.4-8.2) Albumin 3.6 g/dL (3.4-5.0) Albumin/Globulin Ratio 0.9 (1.0-1.7) Lipase 220 U/L (73-393) Ethyl Alcohol Level < 10 mg/dL (0-10) Creatine Kinase 164 U/L (39-308) Troponin I Quantitative 0.126 ng/mL (0.000-0.055) 0.103 ng/mL (0.000-0.055) Nasal Screen MRSA (PCR) Positive (Negative) Test 05/25/18 11:54 05/26/18 12:10 Troponin I Quantitative 0.100 ng/mL (0.000-0.055) White Blood Count 3.1 x10^3/uL (4.0-11.0) Red Blood Count 4.04 x10^6/uL (4.30-5.70) Hemoglobin 10.9 g/dL (13.0-17.5) Hematocrit 33.7 % (39.0-53.0) Mean Corpuscular Volume 84 fL (79-100) Mean Corpuscular Hemoglobin 27 pg (25-35) Mean Corpuscular Hemoglobin Concent 32 g/dL (31-37) Red Cell Distribution Width 17.8 % (11.5-14.5) Platelet Count 204 x10^3/uL (140-400) Neutrophils (%) (Auto) 59 % (31-73) Lymphocytes (%) (Auto) 23 % (24-48) Monocytes (%) (Auto) 8 % (0-9) Eosinophils (%) (Auto) 8 % (0-3) Basophils (%) (Auto) 2 % (0-3) Neutrophils # (Auto) 1.8 x10^3uL (1.8-7.7) Lymphocytes # (Auto) 0.7 x10^3/uL (1.0-4.8) Monocytes # (Auto) 0.2 x10^3/uL (0.0-1.1) Eosinophils # (Auto) 0.2 x10^3/uL (0.0-0.7) Basophils # (Auto) 0.1 x10^3/uL (0.0-0.2) Sodium Level 139 mmol/L (136-145) Potassium Level 4.2 mmol/L (3.5-5.1) Chloride Level 102 mmol/L (98-107) Carbon Dioxide Level 27 mmol/L (21-32) Anion Gap 10 (6-14) Blood Urea Nitrogen 49 mg/dL (8-26) Creatinine 6.0 mg/dL (0.7-1.3) Estimated GFR (Cockcroft-Gault) 11.9 BUN/Creatinine Ratio 8 (6-20) Glucose Level 100 mg/dL (70-99) Calcium Level 8.2 mg/dL (8.5-10.1) Total Bilirubin 0.6 mg/dL (0.2-1.0) Aspartate Amino Transf (AST/SGOT) 11 U/L (15-37) Alanine Aminotransferase (ALT/SGPT) 12 U/L (16-63) Alkaline Phosphatase 93 U/L (46-116) Total Protein 5.9 g/dL (6.4-8.2) Albumin 2.5 g/dL (3.4-5.0) Albumin/Globulin Ratio 0.7 (1.0-1.7) Laboratory Tests Test 05/26/18 12:10 White Blood Count 3.1 x10^3/uL (4.0-11.0) Red Blood Count 4.04 x10^6/uL (4.30-5.70) Hemoglobin 10.9 g/dL (13.0-17.5) Hematocrit 33.7 % (39.0-53.0) Mean Corpuscular Volume 84 fL (79-100) Mean Corpuscular Hemoglobin 27 pg (25-35) Mean Corpuscular Hemoglobin Concent 32 g/dL (31-37) Red Cell Distribution Width 17.8 % (11.5-14.5) Platelet Count 204 x10^3/uL (140-400) Neutrophils (%) (Auto) 59 % (31-73) Lymphocytes (%) (Auto) 23 % (24-48) Monocytes (%) (Auto) 8 % (0-9) Eosinophils (%) (Auto) 8 % (0-3) Basophils (%) (Auto) 2 % (0-3) Neutrophils # (Auto) 1.8 x10^3uL (1.8-7.7) Lymphocytes # (Auto) 0.7 x10^3/uL (1.0-4.8) Monocytes # (Auto) 0.2 x10^3/uL (0.0-1.1) Eosinophils # (Auto) 0.2 x10^3/uL (0.0-0.7) Basophils # (Auto) 0.1 x10^3/uL (0.0-0.2) Sodium Level 139 mmol/L (136-145) Potassium Level 4.2 mmol/L (3.5-5.1) Chloride Level 102 mmol/L (98-107) Carbon Dioxide Level 27 mmol/L (21-32) Anion Gap 10 (6-14) Blood Urea Nitrogen 49 mg/dL (8-26) Creatinine 6.0 mg/dL (0.7-1.3) Estimated GFR (Cockcroft-Gault) 11.9 BUN/Creatinine Ratio 8 (6-20) Glucose Level 100 mg/dL (70-99) Calcium Level 8.2 mg/dL (8.5-10.1) Total Bilirubin 0.6 mg/dL (0.2-1.0) Aspartate Amino Transf (AST/SGOT) 11 U/L (15-37) Alanine Aminotransferase (ALT/SGPT) 12 U/L (16-63) Alkaline Phosphatase 93 U/L (46-116) Total Protein 5.9 g/dL (6.4-8.2) Albumin 2.5 g/dL (3.4-5.0) Albumin/Globulin Ratio 0.7 (1.0-1.7) Vitals/I & O Vital Sign - Last 24 Hours 05/25/18 05/25/18 05/25/18 05/25/18 13:18 13:19 14:00 16:00 Temp 98.1 98.1 Pulse 93 64 62 59 Resp 16 B/P (MAP) 146/95 146/99 115/71 (86) 109/74 (86) Pulse Ox 95 O2 Delivery Nasal Cannula O2 Flow Rate 2.0 05/25/18 05/25/18 05/25/18 05/25/18 17:17 20:00 20:00 20:48 Temp 98.4 98.4 Pulse 59 58 58 Resp 20 B/P (MAP) 109/74 124/80 (95) 124/80 Pulse Ox 100 O2 Delivery Nasal Cannula Nasal Cannula O2 Flow Rate 1.0 1.0 05/25/18 05/25/18 05/26/18 05/26/18 20:48 23:59 03:55 08:00 Temp 98.2 97.9 98.2 97.9 Pulse 58 55 59 65 Resp 20 20 20 B/P (MAP) 124/80 112/78 (89) 117/77 (90) 146/93 (110) Pulse Ox 98 O2 Delivery Room Air 05/26/18 05/26/18 05/26/18 08:00 08:29 09:25 Pulse 65 Resp 18 B/P (MAP) 146/93 O2 Delivery Room Air Room Air Intake and Output 05/25/18 05/25/18 05/26/18 15:00 23:00 07:00 Intake Total 240 ml 510 ml Output Total 0 ml 0 ml 300 ml Balance 240 ml 510 ml -300 ml Images On sono/doppler: IMPRESSION: 1. Patent portal vein demonstrating hepatopedal flow. 2. Moderate volume of ascites Assessment Ascites, doubt due to portal hypertension. Nephrogenic or "cardiac" ascites seem more likely. Anemia, iron-deficient? On po iron, so studies confounded. Plan of Care: Continue current Tx, Mgmt Plan of Care Note Discussed with Dr. Bhat. May consider PD in the future. Paracentesis if uncomfortable; not needed now. Consider endoscopic evaluation at some point. MARIA ELENA ALANIS MD May 26, 2018 13:16
[2018-05-26 13:35] LABS: CHOLESTEROL/HDL RATIO 2.9
[2018-05-26] MEDS: ASPIRIN ENTERIC COATED 325 MG TABLET.DR. PO SCH (15:25)
[2018-05-26] MEDS: amLODIPine BESYLATE 10 MG TABLET PO SCH (15:26)
--- NOTE | 2018-05-26 16:53 | CARD ---
MR#: [id number] Date of Study: 05/26/2018 Ordering Physician: MARYLOU PETERSON, Referring Physician: ROSALEE DAVIES, Tech: Brenda Purdy APPROVED REPORT EXAM: Two-dimensional and M-mode echocardiogram with Doppler and color Doppler. Other Information Quality : ExcellentHR: 65bpm Rhythm : NSR INDICATION Congestive Heart Failure RISK FACTORS Hypertension 2D DIMENSIONS RVDd3.4 (2.9-3.5cm)Left Atrium(2D)4.0 (1.6-4.0cm) IVSd1.8 (0.7-1.1cm)Aortic Root(2D)3.2 (2.0-3.7cm) LVDd4.6 (3.9-5.9cm)LVOT Diameter2.2 (1.8-2.4cm) PWd1.5 (0.7-1.1cm)LVDs3.1 (2.5-4.0cm) FS (%) 32.5 %SV60.5 ml LVEF(%)60.9 (>50%) Aortic Valve AoV Peak Alvaro.177.5cm/sAoV VTI34.4cm AO Peak GR.12.6mmHgLVOT Peak Alvaro.128.0cm/s AO Mean GR.6mmHgAVA (VMAX)2.72cm2 AI P 1/2 [id number] Mitral Valve MV E Cskypbes29.3cm/sMV DECEL [id number] MV A Yzbodgya50.0cm/sE/A Ratio1.4 Pulmonary Valve PV Peak Iklocgai10.4cm/s Tricuspid Valve TR P. Bxyrnwri683nz/sRAP [id number] TR Peak Gr.[id number] Pulmonary Vein S1 Qbqruspc36.2cm/sD2 Vwedoxjn00.6cm/s PVa oynastet420punp LEFT VENTRICLE The left ventricle is normal size. There is severe concentric left ventricular hypertrophy. The left ventricular systolic function is normal. The Ejection Fraction is 50-55%. There is normal LV segmenta l wall motion. Transmitral Doppler flow pattern is Grade II-pseudonormal filling dynamics. RIGHT VENTRICLE The right ventricle is mildly dilated. The right ventricle is moderately hypertrophied. The right donna tricular systolic function is normal. ATRIA The left atrium is mildly dilated. The right atrium is borderline dilated. The interatrial septum is intact with no evidence for an atrial septal defect or patent foramen ovale as noted on 2-D or Dopple r imaging. AORTIC VALVE The aortic valve is thickened but opens well. Doppler and Color Flow revealed mild aortic regurgitati on. There is no significant aortic valvular stenosis. MITRAL VALVE The mitral valve is normal in structure and function. There is no evidence of mitral valve prolapse. There is no mitral valve stenosis. Doppler and Color-flow revealed trace mitral regurgitation. TRICUSPID VALVE The tricuspid valve is normal in structure and function. Doppler and Color Flow revealed trace to mil d tricuspid regurgitation. There is no tricuspid valve stenosis. PULMONIC VALVE The pulmonary valve is normal in structure and function. Doppler and Color Flow revealed moderate pul oriana valvular regurgitation. GREAT VESSELS The aortic root is normal in size. The IVC is dilated and collapses <50% with inspiration. PERICARDIAL EFFUSION There is moderate left pleural effusion. There is a small pericardial effusion. Critical Notification Critical Value: No <Conclusion> The left ventricular systolic function is normal. The Ejection Fraction is 50-55%. There is normal LV segmental wall motion. There is severe concentric left ventricular hypertrophy. Transmitral Doppler flow pattern is Grade II-pseudonormal filling dynamics. Mild aortic regurgitation. Trace mitral regurgitation. Trace to mild tricuspid regurgitation. There is a small pericardial effusion. Signed by : Raymundo Morin, Electronically Approved : 05/26/2018 16:53:23
[2018-05-26] MEDS: ALPRAZolam 0.25 MG TABLET PO PRN (20:12)
[2018-05-26] MEDS: ACETAMINOPHEN 325 MG TABLET. PO PRN (20:12)
[2018-05-27 03:47] VITALS: BP 117/83
[2018-05-27 08:06] VITALS: BP 139/96
[2018-05-27] MEDS: CALCIUM CARB/VIT D3 500/200 TABLET. PO SCH (08:53)
[2018-05-27] MEDS: CARVEDILOL 12.5 MG TABLET. PO SCH (08:53)
[2018-05-27] MEDS: FERROUS SULFATE 325 MG TABLET. PO SCH (08:54)
[2018-05-27] MEDS: ASPIRIN ENTERIC COATED 325 MG TABLET.DR. PO SCH (08:54)
[2018-05-27] MEDS: amLODIPine BESYLATE 10 MG TABLET PO SCH (08:54)
[2018-05-27] MEDS: cloNIDine HCL 0.1 MG TABLET PO SCH (08:55)
[2018-05-27] MEDS: FUROSEMIDE 40 MG TABLET. PO SCH (08:55)
[2018-05-27] MEDS: ALPRAZolam 0.25 MG TABLET PO PRN (08:59)
[2018-05-27] MEDS: HYDROcodone/APAP 5/325MG 1 TAB TABLET PO PRN (08:59)
--- NOTE | 2018-05-27 10:36 | PDOC ---
Subjective: Subjective: Today tells me constant upper abd discomfort - unaffected by eating and stooling , not sure if related to ascites. Says abdomen does not feel tight. Objective: Objective: Per RN - ?DC today Vital Signs: Vital Signs Date Time Temp Pulse Resp B/P (MAP) Pulse Ox O2 Delivery O2 Flow Rate FiO2 05/27/18 09:59 95 Room Air 05/27/18 08:55 61 139/96 05/27/18 08:06 97.9 17 97.9 Labs: Laboratory Tests Test 05/26/18 12:10 White Blood Count 3.1 x10^3/uL Red Blood Count 4.04 x10^6/uL Hemoglobin 10.9 g/dL Hematocrit 33.7 % Mean Corpuscular Volume 84 fL Mean Corpuscular Hemoglobin 27 pg Mean Corpuscular Hemoglobin Concent 32 g/dL Red Cell Distribution Width 17.8 % Platelet Count 204 x10^3/uL Neutrophils (%) (Auto) 59 % Lymphocytes (%) (Auto) 23 % Monocytes (%) (Auto) 8 % Eosinophils (%) (Auto) 8 % Basophils (%) (Auto) 2 % Neutrophils # (Auto) 1.8 x10^3uL Lymphocytes # (Auto) 0.7 x10^3/uL Monocytes # (Auto) 0.2 x10^3/uL Eosinophils # (Auto) 0.2 x10^3/uL Basophils # (Auto) 0.1 x10^3/uL Sodium Level 139 mmol/L Potassium Level 4.2 mmol/L Chloride Level 102 mmol/L Carbon Dioxide Level 27 mmol/L Anion Gap 10 Blood Urea Nitrogen 49 mg/dL Creatinine 6.0 mg/dL Estimated GFR (Cockcroft-Gault) 11.9 BUN/Creatinine Ratio 8 Glucose Level 100 mg/dL Calcium Level 8.2 mg/dL Total Bilirubin 0.6 mg/dL Aspartate Amino Transf (AST/SGOT) 11 U/L Alanine Aminotransferase (ALT/SGPT) 12 U/L Alkaline Phosphatase 93 U/L Total Protein 5.9 g/dL Albumin 2.5 g/dL Albumin/Globulin Ratio 0.7 Triglycerides Level 50 mg/dL Cholesterol Level 129 mg/dL LDL Cholesterol, Calculated 74 mg/dL VLDL Cholesterol, Calculated 10 mg/dL Non-HDL Cholesterol Calculated 84 mg/dL HDL Cholesterol 45 mg/dL Cholesterol/HDL Ratio 2.9 PE: GEN: NAD LUNGS: CTAB HEART: RRR ABD: reducible umbilical hernia, some distention/fluid, vaguely tender epigastrium NEURO/PSYCH: A & O 3 A/P: Ascites - nephrogenic/cardiac etiology suspected Anemia - on PO iron -- Different symptoms every day. ?PPI trial DC per primary. Follow-up for outpt EGD and colonoscopy. Okay to PD in the future per renal. NEGAR CLEMONS May 27, 2018 10:36
[2018-05-27 10:59] LABS: BASO # 0.1 x10^3/uL (0.0-0.2); BASO % 2 % (0-3); EOS # 0.3 x10^3/uL (0.0-0.7); EOS % 5 % (0-3); HEMATOCRIT 33.5 % (39.0-53.0); HEMOGLOBIN 10.6 g/dL (13.0-17.5); LYMPH # 0.7 x10^3/uL (1.0-4.8); LYMPH % 14 % (24-48); MEAN CORPUSCULAR HEMOGLOBIN 27 pg (25-35); MEAN CORPUSCULAR HGB CONC 32 g/dL (31-37); MEAN CORPUSCULAR VOLUME 84 fL (79-100); MONO # 0.6 x10^3/uL (0.0-1.1); MONO % 13 % (0-9); NEUT % 65 % (31-73); PLATELET COUNT 208 x10^3/uL (140-400); RED CELL DISTRIBUTION WIDTH 18.2 % (11.5-14.5); WHITE BLOOD COUNT 4.6 x10^3/uL (4.0-11.0)
[2018-05-27 11:12] VITALS: BP 104/63
[2018-05-27 11:34] LABS: ALBUMIN 2.4 g/dL (3.4-5.0); ALBUMIN/GLOBULIN RATIO 0.7 (1.0-1.7); CALCIUM 8.6 mg/dL (8.5-10.1); CREATININE 5.2 mg/dL (0.7-1.3); GFR 14.1; POTASSIUM 3.8 mmol/L (3.5-5.1); TOTAL BILIRUBIN 0.5 mg/dL (0.2-1.0); TOTAL PROTEIN 5.8 g/dL (6.4-8.2)
--- NOTE | 2018-05-27 11:57 | PDOC ---
PROGRESS NOTES Chief Complaint Chief Complaint CC: SOA, lf arm pain, increased abdominal girth Accelerated HTN ESRD on dialysis HLD Asthma Noncompliance History of Present Illness History of Present Illness Pt is 53 y/o male who presented to the ED with SOA, lf arm pain and increasing abdominal girth. pt was seen and examined in his room. History of non- compliance. Neprhology has cleared him for discharge. Will likely need repeat paracentesis. pt has no complaints at this time. pt is in no acute distress today. discussed the pt with his RN. Vitals Vitals Vital Signs Date Time Temp Pulse Resp B/P (MAP) Pulse Ox O2 Delivery O2 Flow Rate FiO2 05/27/18 11:12 98.2 58 17 104/63 (77) 95 Room Air 98.2 Physical Exam General: Alert, Oriented X3, Cooperative, No acute distress Heart: Regular rate, Normal S1, Normal S2, No murmurs Lungs: Clear, Other (No wheezing or crackles) Abdomen: Normal bowel sounds, No tenderness, No hepatosplenomegaly, Other ( Distended, umbilical hernia) Extremities: No clubbing, No cyanosis, Normal pulses Skin: No breakdown Labs LABS Laboratory Tests Test 05/26/18 12:10 05/27/18 10:17 White Blood Count 3.1 x10^3/uL (4.0-11.0) 4.6 x10^3/uL (4.0-11.0) Red Blood Count 4.04 x10^6/uL (4.30-5.70) 4.00 x10^6/uL (4.30-5.70) Hemoglobin 10.9 g/dL (13.0-17.5) 10.6 g/dL (13.0-17.5) Hematocrit 33.7 % (39.0-53.0) 33.5 % (39.0-53.0) Mean Corpuscular Volume 84 fL (79-100) 84 fL (79-100) Mean Corpuscular Hemoglobin 27 pg (25-35) 27 pg (25-35) Mean Corpuscular Hemoglobin Concent 32 g/dL (31-37) 32 g/dL (31-37) Red Cell Distribution Width 17.8 % (11.5-14.5) 18.2 % (11.5-14.5) Platelet Count 204 x10^3/uL (140-400) 208 x10^3/uL (140-400) Neutrophils (%) (Auto) 59 % (31-73) 65 % (31-73) Lymphocytes (%) (Auto) 23 % (24-48) 14 % (24-48) Monocytes (%) (Auto) 8 % (0-9) 13 % (0-9) Eosinophils (%) (Auto) 8 % (0-3) 5 % (0-3) Basophils (%) (Auto) 2 % (0-3) 2 % (0-3) Neutrophils # (Auto) 1.8 x10^3uL (1.8-7.7) 3.0 x10^3uL (1.8-7.7) Lymphocytes # (Auto) 0.7 x10^3/uL (1.0-4.8) 0.7 x10^3/uL (1.0-4.8) Monocytes # (Auto) 0.2 x10^3/uL (0.0-1.1) 0.6 x10^3/uL (0.0-1.1) Eosinophils # (Auto) 0.2 x10^3/uL (0.0-0.7) 0.3 x10^3/uL (0.0-0.7) Basophils # (Auto) 0.1 x10^3/uL (0.0-0.2) 0.1 x10^3/uL (0.0-0.2) Sodium Level 139 mmol/L (136-145) 140 mmol/L (136-145) Potassium Level 4.2 mmol/L (3.5-5.1) 3.8 mmol/L (3.5-5.1) Chloride Level 102 mmol/L (98-107) 101 mmol/L (98-107) Carbon Dioxide Level 27 mmol/L (21-32) 30 mmol/L (21-32) Anion Gap 10 (6-14) 9 (6-14) Blood Urea Nitrogen 49 mg/dL (8-26) 33 mg/dL (8-26) Creatinine 6.0 mg/dL (0.7-1.3) 5.2 mg/dL (0.7-1.3) Estimated GFR (Cockcroft-Gault) 11.9 14.1 BUN/Creatinine Ratio 8 (6-20) 6 (6-20) Glucose Level 100 mg/dL (70-99) 114 mg/dL (70-99) Calcium Level 8.2 mg/dL (8.5-10.1) 8.6 mg/dL (8.5-10.1) Total Bilirubin 0.6 mg/dL (0.2-1.0) 0.5 mg/dL (0.2-1.0) Aspartate Amino Transf (AST/SGOT) 11 U/L (15-37) 12 U/L (15-37) Alanine Aminotransferase (ALT/SGPT) 12 U/L (16-63) 11 U/L (16-63) Alkaline Phosphatase 93 U/L (46-116) 100 U/L (46-116) Total Protein 5.9 g/dL (6.4-8.2) 5.8 g/dL (6.4-8.2) Albumin 2.5 g/dL (3.4-5.0) 2.4 g/dL (3.4-5.0) Albumin/Globulin Ratio 0.7 (1.0-1.7) 0.7 (1.0-1.7) Triglycerides Level 50 mg/dL (0-150) Cholesterol Level 129 mg/dL (0-200) LDL Cholesterol, Calculated 74 mg/dL (0-100) VLDL Cholesterol, Calculated 10 mg/dL (0-40) Non-HDL Cholesterol Calculated 84 mg/dL (0-129) HDL Cholesterol 45 mg/dL (40-60) Cholesterol/HDL Ratio 2.9 Review of Systems Review of Systems general: no acute distress, no fever, no chills. cardiac: no chest pain, no arrhthyhmia, no murmur, no palpitation. respiratory: no shortness of breath, wheezing, rales/rhonchi/crackles. Assessment and Plan Assessmemt and Plan Assessment CC: SOA, lf arm pain, increased abdominal girth Accelerated HTN ESRD on dialysis HLD Asthma Non-compliance Plan Paracentesis - GI is following HD - nephrology is following discharge cleared per nephrology. Follow daily labs PT/OT Home meds Appreciate subspecialist input Discharge disposition pending likely dc today Comment Review of Relevant I have reviewed the following items benjamin (where applicable) has been applied. Labs Laboratory Tests Test 05/25/18 11:54 05/26/18 12:10 05/27/18 10:17 Troponin I Quantitative 0.100 ng/mL (0.000-0.055) White Blood Count 3.1 x10^3/uL (4.0-11.0) 4.6 x10^3/uL (4.0-11.0) Red Blood Count 4.04 x10^6/uL (4.30-5.70) 4.00 x10^6/uL (4.30-5.70) Hemoglobin 10.9 g/dL (13.0-17.5) 10.6 g/dL (13.0-17.5) Hematocrit 33.7 % (39.0-53.0) 33.5 % (39.0-53.0) Mean Corpuscular Volume 84 fL (79-100) 84 fL (79-100) Mean Corpuscular Hemoglobin 27 pg (25-35) 27 pg (25-35) Mean Corpuscular Hemoglobin Concent 32 g/dL (31-37) 32 g/dL (31-37) Red Cell Distribution Width 17.8 % (11.5-14.5) 18.2 % (11.5-14.5) Platelet Count 204 x10^3/uL (140-400) 208 x10^3/uL (140-400) Neutrophils (%) (Auto) 59 % (31-73) 65 % (31-73) Lymphocytes (%) (Auto) 23 % (24-48) 14 % (24-48) Monocytes (%) (Auto) 8 % (0-9) 13 % (0-9) Eosinophils (%) (Auto) 8 % (0-3) 5 % (0-3) Basophils (%) (Auto) 2 % (0-3) 2 % (0-3) Neutrophils # (Auto) 1.8 x10^3uL (1.8-7.7) 3.0 x10^3uL (1.8-7.7) Lymphocytes # (Auto) 0.7 x10^3/uL (1.0-4.8) 0.7 x10^3/uL (1.0-4.8) Monocytes # (Auto) 0.2 x10^3/uL (0.0-1.1) 0.6 x10^3/uL (0.0-1.1) Eosinophils # (Auto) 0.2 x10^3/uL (0.0-0.7) 0.3 x10^3/uL (0.0-0.7) Basophils # (Auto) 0.1 x10^3/uL (0.0-0.2) 0.1 x10^3/uL (0.0-0.2) Sodium Level 139 mmol/L (136-145) 140 mmol/L (136-145) Potassium Level 4.2 mmol/L (3.5-5.1) 3.8 mmol/L (3.5-5.1) Chloride Level 102 mmol/L (98-107) 101 mmol/L (98-107) Carbon Dioxide Level 27 mmol/L (21-32) 30 mmol/L (21-32) Anion Gap 10 (6-14) 9 (6-14) Blood Urea Nitrogen 49 mg/dL (8-26) 33 mg/dL (8-26) Creatinine 6.0 mg/dL (0.7-1.3) 5.2 mg/dL (0.7-1.3) Estimated GFR (Cockcroft-Gault) 11.9 14.1 BUN/Creatinine Ratio 8 (6-20) 6 (6-20) Glucose Level 100 mg/dL (70-99) 114 mg/dL (70-99) Calcium Level 8.2 mg/dL (8.5-10.1) 8.6 mg/dL (8.5-10.1) Total Bilirubin 0.6 mg/dL (0.2-1.0) 0.5 mg/dL (0.2-1.0) Aspartate Amino Transf (AST/SGOT) 11 U/L (15-37) 12 U/L (15-37) Alanine Aminotransferase (ALT/SGPT) 12 U/L (16-63) 11 U/L (16-63) Alkaline Phosphatase 93 U/L (46-116) 100 U/L (46-116) Total Protein 5.9 g/dL (6.4-8.2) 5.8 g/dL (6.4-8.2) Albumin 2.5 g/dL (3.4-5.0) 2.4 g/dL (3.4-5.0) Albumin/Globulin Ratio 0.7 (1.0-1.7) 0.7 (1.0-1.7) Triglycerides Level 50 mg/dL (0-150) Cholesterol Level 129 mg/dL (0-200) LDL Cholesterol, Calculated 74 mg/dL (0-100) VLDL Cholesterol, Calculated 10 mg/dL (0-40) Non-HDL Cholesterol Calculated 84 mg/dL (0-129) HDL Cholesterol 45 mg/dL (40-60) Cholesterol/HDL Ratio 2.9 Laboratory Tests Test 05/26/18 12:10 05/27/18 10:17 White Blood Count 3.1 x10^3/uL (4.0-11.0) 4.6 x10^3/uL (4.0-11.0) Red Blood Count 4.04 x10^6/uL (4.30-5.70) 4.00 x10^6/uL (4.30-5.70) Hemoglobin 10.9 g/dL (13.0-17.5) 10.6 g/dL (13.0-17.5) Hematocrit 33.7 % (39.0-53.0) 33.5 % (39.0-53.0) Mean Corpuscular Volume 84 fL (79-100) 84 fL (79-100) Mean Corpuscular Hemoglobin 27 pg (25-35) 27 pg (25-35) Mean Corpuscular Hemoglobin Concent 32 g/dL (31-37) 32 g/dL (31-37) Red Cell Distribution Width 17.8 % (11.5-14.5) 18.2 % (11.5-14.5) Platelet Count 204 x10^3/uL (140-400) 208 x10^3/uL (140-400) Neutrophils (%) (Auto) 59 % (31-73) 65 % (31-73) Lymphocytes (%) (Auto) 23 % (24-48) 14 % (24-48) Monocytes (%) (Auto) 8 % (0-9) 13 % (0-9) Eosinophils (%) (Auto) 8 % (0-3) 5 % (0-3) Basophils (%) (Auto) 2 % (0-3) 2 % (0-3) Neutrophils # (Auto) 1.8 x10^3uL (1.8-7.7) 3.0 x10^3uL (1.8-7.7) Lymphocytes # (Auto) 0.7 x10^3/uL (1.0-4.8) 0.7 x10^3/uL (1.0-4.8) Monocytes # (Auto) 0.2 x10^3/uL (0.0-1.1) 0.6 x10^3/uL (0.0-1.1) Eosinophils # (Auto) 0.2 x10^3/uL (0.0-0.7) 0.3 x10^3/uL (0.0-0.7) Basophils # (Auto) 0.1 x10^3/uL (0.0-0.2) 0.1 x10^3/uL (0.0-0.2) Sodium Level 139 mmol/L (136-145) 140 mmol/L (136-145) Potassium Level 4.2 mmol/L (3.5-5.1) 3.8 mmol/L (3.5-5.1) Chloride Level 102 mmol/L (98-107) 101 mmol/L (98-107) Carbon Dioxide Level 27 mmol/L (21-32) 30 mmol/L (21-32) Anion Gap 10 (6-14) 9 (6-14) Blood Urea Nitrogen 49 mg/dL (8-26) 33 mg/dL (8-26) Creatinine 6.0 mg/dL (0.7-1.3) 5.2 mg/dL (0.7-1.3) Estimated GFR (Cockcroft-Gault) 11.9 14.1 BUN/Creatinine Ratio 8 (6-20) 6 (6-20) Glucose Level 100 mg/dL (70-99) 114 mg/dL (70-99) Calcium Level 8.2 mg/dL (8.5-10.1) 8.6 mg/dL (8.5-10.1) Total Bilirubin 0.6 mg/dL (0.2-1.0) 0.5 mg/dL (0.2-1.0) Aspartate Amino Transf (AST/SGOT) 11 U/L (15-37) 12 U/L (15-37) Alanine Aminotransferase (ALT/SGPT) 12 U/L (16-63) 11 U/L (16-63) Alkaline Phosphatase 93 U/L (46-116) 100 U/L (46-116) Total Protein 5.9 g/dL (6.4-8.2) 5.8 g/dL (6.4-8.2) Albumin 2.5 g/dL (3.4-5.0) 2.4 g/dL (3.4-5.0) Albumin/Globulin Ratio 0.7 (1.0-1.7) 0.7 (1.0-1.7) Triglycerides Level 50 mg/dL (0-150) Cholesterol Level 129 mg/dL (0-200) LDL Cholesterol, Calculated 74 mg/dL (0-100) VLDL Cholesterol, Calculated 10 mg/dL (0-40) Non-HDL Cholesterol Calculated 84 mg/dL (0-129) HDL Cholesterol 45 mg/dL (40-60) Cholesterol/HDL Ratio 2.9 Medications Current Medications Labetalol HCl (Normodyne Iv Push) 20 mg 1X ONCE IVP Last administered on at 05:05; Start 05/25/18 at 04:45; Stop 05/25/18 at 04:46; Status DC Fentanyl Citrate (Fentanyl 2ml Vial) 50 mcg 1X ONCE IV Last administered on at 04:36; Start 05/25/18 at 04:45; Stop 05/25/18 at 04:46; Status DC Ondansetron HCl (Zofran) 4 mg 1X ONCE IV Last administered on 05/25/18at 04:32 ; Start 05/25/18 at 04:30; Stop 05/25/18 at 04:35; Status DC Diphenhydramine HCl (Benadryl) 25 mg 1X ONCE IVP Last administered on at 05:12; Start 05/25/18 at 05:15; Stop 05/25/18 at 05:16; Status DC Labetalol HCl (Normodyne Iv Push) 20 mg 1X ONCE IVP Last administered on at 05:57; Start 05/25/18 at 06:00; Stop 05/25/18 at 06:01; Status DC Nicardipine HCl 50 mg/Sodium Chloride 250 ml @ 25 mls/hr CONT PRN IV SEE I/O RECORD Last administered on 05/25/18at 06:00; Start 05/25/18 at 05:45 Ondansetron HCl (Zofran) 4 mg PRN Q8HRS PRN IV NAUSEA/VOMITING; Start 05/25/18 at 06:00; Stop 05/26/18 at 05:59; Status DC Acetaminophen (Tylenol) 650 mg PRN Q6HRS PRN PO PAIN Last administered on 20:12; Start 05/25/18 at 07:30 Amlodipine Besylate (Norvasc) 10 mg DAILY PO Last administered on 05/27/18 08: 54; Start 05/26/18 at 09:00 Aspirin (Ecotrin) 325 mg DAILYWBKFT PO Last administered on 05/27/18 08:54; Start 05/26/18 at 08:00 Carvedilol (Coreg) 12.5 mg BIDWMEALS PO Last administered on 05/27/18 08:53; Start 05/25/18 at 17:00 Clonidine HCl (Catapres) 0.1 mg TID PO Last administered on 05/27/18 08:55; Start 05/25/18 at 14:00 Furosemide (Lasix) 40 mg BID92 PO Last administered on 05/27/18 08:55; Start 05/25/18 at 14:00 Hydralazine HCl (Apresoline) 50 mg TID PO Last administered on 05/27/18 08:54 ; Start 05/25/18 at 14:00 Carvedilol (Coreg) 12.5 mg 1X STAT PO Last administered on 05/25/18 11:02; Start 05/25/18 at 10:55; Stop 05/25/18 at 10:58; Status DC Amlodipine Besylate (Norvasc) 10 mg 1X STAT PO Last administered on 05/25/18 11:02; Start 05/25/18 at 10:55; Stop 05/25/18 at 10:58; Status DC Fentanyl Citrate (Fentanyl 2ml Vial) 50 mcg PRN Q2HR PRN IV PAIN; Start at 17:45 Alprazolam (Xanax) 0.25 mg PRN BID PRN PO ANXIETY / AGITATION Last administered on 05/27/18 08:59; Start 05/26/18 at 07:30 Calcium/Vitamin D (Oscal D 500mg/ 200uts) 1 tab BIDWMEALS PO Last administered on 05/27/18 08:53; Start 05/26/18 at 08:00 Ferrous Sulfate (Feosol) 325 mg BIDWMEALS PO Last administered on 05/27/18at 08: 54; Start 05/26/18 at 08:00 Acetaminophen/ Hydrocodone Bitart (Lortab 5/325) 1 tab PRN Q6HRS PRN PO SEVERE PAIN Last administered on 05/27/18 08:59; Start 05/26/18 at 07:30 Lidocaine HCl (Xylocaine-Mpf 1% 2ml Vial) 2 ml STK-MED ONCE .ROUTE ; Start 05/26 at 10:35; Stop 05/26/18 at 10:36; Status DC Sodium Chloride 1,000 ml @ 1,000 mls/hr Q1H PRN IV hypotension; Start 05/26/18 at 12:22; Stop 05/26/18 at 18:21; Status DC Sodium Chloride 1,000 ml @ 400 mls/hr Q2H30M PRN IV PATENCY; Start 05/26/18 at 12:22; Stop 05/27/18 at 00:21; Status DC Info (PHARMACY MONITORING -- do not chart) 1 each PRN DAILY PRN MC SEE COMMENTS ; Start 05/26/18 at 12:30 Lidocaine HCl (Xylocaine-Mpf 1% 2ml Vial) 2 ml STK-MED ONCE .ROUTE ; Start 05/26 at 11:00; Stop 05/27/18 at 09:15; Status DC Active Scripts Active Hydrocodone-Apap 5-325 (Hydrocodone Bit/Acetaminophen) 1 Each Tablet 1 Tab PO PRN Q6HRS PRN Furosemide 40 Mg Tablet 40 Mg PO BID92 30 Days Oyster Shell 500 Mg + Vit D Tb (Calcium Carbonate/Vitamin D3) 1 Each Tablet 1 Tab PO BIDWMEALS 30 Days Alprazolam 0.25 Mg Tablet 0.25 Mg PO PRN BID PRN 10 Days Feosol (Ferrous Sulfate) 325 Mg Tablet 325 Mg PO BIDWMEALS 30 Days Aspirin Ec (Aspirin) 325 Mg Tablet. 325 Mg PO DAILYWBKFT 30 Days Reported Amlodipine Besylate 10 Mg Tablet 10 Mg PO DAILY Carvedilol (Carvedilol) 12.5 Mg Tablet 12.5 Mg PO BIDWMEALS Hydralazine Hcl 50 Mg Tablet 1 Tab PO TID Clonidine Hcl 0.1 Mg Tablet 0.1 Mg PO TID Vitals/I & O Vital Sign - Last 24 Hours 05/26/18 05/26/18 05/26/18 05/26/18 15:25 15:26 15:26 15:36 Pulse 66 66 66 B/P (MAP) 163/106 163/106 163/106 O2 Delivery Room Air 05/26/18 05/26/18 05/26/18 05/26/18 16:00 17:00 17:19 17:40 Temp 98.0 97.6 98.0 97.6 Pulse 73 65 63 Resp 16 B/P (MAP) 163/106 (125) 107/66 97/62 (74) 107/66 (80) Pulse Ox 97 97 O2 Delivery Room Air Room Air 05/26/18 05/26/18 05/26/18 05/26/18 19:45 20:00 20:16 20:17 Temp 97.6 97.6 Pulse 61 62 63 Resp 18 B/P (MAP) 129/81 (97) 129/81 129/81 Pulse Ox 94 O2 Delivery Room Air Room Air 05/26/18 05/26/18 05/27/18 05/27/18 23:50 23:50 00:55 03:47 Temp 97.9 98.0 97.9 98.0 Pulse 56 64 Resp 16 17 16 17 B/P (MAP) 122/78 (93) 117/83 (94) Pulse Ox 94 96 O2 Delivery Room Air Room Air Room Air 05/27/18 05/27/18 05/27/18 05/27/18 08:00 08:06 08:53 08:54 Temp 97.9 97.9 Pulse 61 61 61 Resp 17 B/P (MAP) 139/96 (110) 139/96 139/96 Pulse Ox 95 O2 Delivery Room Air Room Air 05/27/18 05/27/18 05/27/18 05/27/18 08:54 08:55 08:59 09:59 Pulse 61 61 B/P (MAP) 139/96 139/96 Pulse Ox 95 95 O2 Delivery Room Air Room Air 05/27/18 11:12 Temp 98.2 98.2 Pulse 58 Resp 17 B/P (MAP) 104/63 (77) Pulse Ox 95 O2 Delivery Room Air Intake and Output 05/26/18 05/26/18 05/27/18 15:00 23:00 07:00 Intake Total 240 ml 50 ml 400 ml Output Total 0 ml 200 ml Balance 240 ml 50 ml 200 ml ENRICO GUAN III DO May 27, 2018 11:57
--- NOTE | 2018-05-27 12:10 | PDOC ---
Renal-Progress Notes Subjective Notes Notes NONE History of Present Illness Hx of present illness BETTER Vitals Vitals Vital Signs Date Time Temp Pulse Resp B/P (MAP) Pulse Ox O2 Delivery O2 Flow Rate FiO2 05/27/18 11:12 98.2 58 17 104/63 (77) 95 Room Air 98.2 Weight Weight [ ] I.O. Intake and Output Intake and Output 05/27/18 07:00 Intake Total 690 ml Output Total 200 ml Balance 490 ml Intake Oral 690 ml Output Urine Total 200 ml Labs Labs Laboratory Tests Test 05/26/18 12:10 05/27/18 10:17 White Blood Count 3.1 x10^3/uL (4.0-11.0) 4.6 x10^3/uL (4.0-11.0) Red Blood Count 4.04 x10^6/uL (4.30-5.70) 4.00 x10^6/uL (4.30-5.70) Hemoglobin 10.9 g/dL (13.0-17.5) 10.6 g/dL (13.0-17.5) Hematocrit 33.7 % (39.0-53.0) 33.5 % (39.0-53.0) Mean Corpuscular Volume 84 fL (79-100) 84 fL (79-100) Mean Corpuscular Hemoglobin 27 pg (25-35) 27 pg (25-35) Mean Corpuscular Hemoglobin Concent 32 g/dL (31-37) 32 g/dL (31-37) Red Cell Distribution Width 17.8 % (11.5-14.5) 18.2 % (11.5-14.5) Platelet Count 204 x10^3/uL (140-400) 208 x10^3/uL (140-400) Neutrophils (%) (Auto) 59 % (31-73) 65 % (31-73) Lymphocytes (%) (Auto) 23 % (24-48) 14 % (24-48) Monocytes (%) (Auto) 8 % (0-9) 13 % (0-9) Eosinophils (%) (Auto) 8 % (0-3) 5 % (0-3) Basophils (%) (Auto) 2 % (0-3) 2 % (0-3) Neutrophils # (Auto) 1.8 x10^3uL (1.8-7.7) 3.0 x10^3uL (1.8-7.7) Lymphocytes # (Auto) 0.7 x10^3/uL (1.0-4.8) 0.7 x10^3/uL (1.0-4.8) Monocytes # (Auto) 0.2 x10^3/uL (0.0-1.1) 0.6 x10^3/uL (0.0-1.1) Eosinophils # (Auto) 0.2 x10^3/uL (0.0-0.7) 0.3 x10^3/uL (0.0-0.7) Basophils # (Auto) 0.1 x10^3/uL (0.0-0.2) 0.1 x10^3/uL (0.0-0.2) Sodium Level 139 mmol/L (136-145) 140 mmol/L (136-145) Potassium Level 4.2 mmol/L (3.5-5.1) 3.8 mmol/L (3.5-5.1) Chloride Level 102 mmol/L (98-107) 101 mmol/L (98-107) Carbon Dioxide Level 27 mmol/L (21-32) 30 mmol/L (21-32) Anion Gap 10 (6-14) 9 (6-14) Blood Urea Nitrogen 49 mg/dL (8-26) 33 mg/dL (8-26) Creatinine 6.0 mg/dL (0.7-1.3) 5.2 mg/dL (0.7-1.3) Estimated GFR (Cockcroft-Gault) 11.9 14.1 BUN/Creatinine Ratio 8 (6-20) 6 (6-20) Glucose Level 100 mg/dL (70-99) 114 mg/dL (70-99) Calcium Level 8.2 mg/dL (8.5-10.1) 8.6 mg/dL (8.5-10.1) Total Bilirubin 0.6 mg/dL (0.2-1.0) 0.5 mg/dL (0.2-1.0) Aspartate Amino Transf (AST/SGOT) 11 U/L (15-37) 12 U/L (15-37) Alanine Aminotransferase (ALT/SGPT) 12 U/L (16-63) 11 U/L (16-63) Alkaline Phosphatase 93 U/L (46-116) 100 U/L (46-116) Total Protein 5.9 g/dL (6.4-8.2) 5.8 g/dL (6.4-8.2) Albumin 2.5 g/dL (3.4-5.0) 2.4 g/dL (3.4-5.0) Albumin/Globulin Ratio 0.7 (1.0-1.7) 0.7 (1.0-1.7) Triglycerides Level 50 mg/dL (0-150) Cholesterol Level 129 mg/dL (0-200) LDL Cholesterol, Calculated 74 mg/dL (0-100) VLDL Cholesterol, Calculated 10 mg/dL (0-40) Non-HDL Cholesterol Calculated 84 mg/dL (0-129) HDL Cholesterol 45 mg/dL (40-60) Cholesterol/HDL Ratio 2.9 Review of Systems Constitutional: yes: alert, oriented Ears/Nose/Throat: Yes: no symptom reported Eyes: Yes: no symptom reported Pulmonary: Yes no symptom reported Cardiovascular: Yes no symptom reported Gastrointestional: Yes: other (SWELLING) Musculoskeletal: Yes: no symptom reported Skin: Yes no symptom reported Psychiatric/Neurological: Yes: no symptom reported Endocrine: Yes: no symptom reported Physical Exam General Appearance: no apparent distress Skin: warm Respiratory: bilateral CTA Heart: S1S2, RRR Abdomen: soft, bowel sounds present Genitourinary: bladder flat Extremities: pulses present Neurology: alert, oriented, follow commands Musculoskeletal: Osteoarthritis Assessment Assessment IMP MALIGNANT HTN-BETTER ESRD ANEMIA ASCITES PLAN HD TOMORROW WILL CONSIDER CHANGING TO PD OP PT ALREADY HAS OP APPT WITH DR HERRERA FOR PD CATHETER EVALUATION ON WEDNESDAY OK TO D/C D/W ATTENDING OSIRIS MEADOWS MD May 27, 2018 12:10
--- NOTE | 2018-05-27 12:39 | DS ---
DATE OF DISCHARGE: 05/27/2018 ADMISSION DIAGNOSES: End-stage renal disease, on dialysis; hypertensive urgency; abdominal pain; ascites and noncompliance. DISCHARGE DIAGNOSIS: Resolving abdominal pain. HOSPITAL COURSE: The patient is a pleasant 53-year-old male, well known to our service. He is pretty noncompliant with his meds and going to dialysis. Once again, he presented for an evaluation of abdominal pain. He has got ascites. We are really not sure what is causing that. I talked to Dr. Bhat today. We have had the patient in for several days. We have dialyzed him. Dr. Bhat would like to eventually get him on peritoneal dialysis over the next month or so week. The patient was seen and examined. He is doing well. We plan to discharge and have him see Dr. Bhat for dialysis in a couple of days. DISPOSITION: Home. ACTIVITY: As tolerated. DIET: Low sodium. MEDICATIONS: Please see the MRAD. TOTAL TIME: 34 minutes. ENRICO GUAN DO DR: YODIT/savannah JOB#: [id number] / [id number]
--- NOTE | 2018-05-27 13:00 | PDOC ---
ELKIN SMITH NUMERICAL CONTROL PROGRAMMER 05/27/18 1300: CARDIO Progress Notes Date and Time Date of Service 05/27/18 Time of Evaluation 1210 Subjective Subjective: No Chest Pain, No shortness of breath, No Palpitations Vitals Vitals Vital Signs Date Time Temp Pulse Resp B/P (MAP) Pulse Ox O2 Delivery O2 Flow Rate FiO2 05/27/18 11:12 98.2 58 17 104/63 (77) 95 Room Air 98.2 Weight Weight [ ] Input and Output Intake and Output Intake and Output 05/27/18 07:00 Intake Total 690 ml Output Total 200 ml Balance 490 ml Intake Oral 690 ml Output Urine Total 200 ml Laboratory Labs Laboratory Tests Test 05/27/18 10:17 White Blood Count 4.6 x10^3/uL (4.0-11.0) Red Blood Count 4.00 x10^6/uL (4.30-5.70) Hemoglobin 10.6 g/dL (13.0-17.5) Hematocrit 33.5 % (39.0-53.0) Mean Corpuscular Volume 84 fL (79-100) Mean Corpuscular Hemoglobin 27 pg (25-35) Mean Corpuscular Hemoglobin Concent 32 g/dL (31-37) Red Cell Distribution Width 18.2 % (11.5-14.5) Platelet Count 208 x10^3/uL (140-400) Neutrophils (%) (Auto) 65 % (31-73) Lymphocytes (%) (Auto) 14 % (24-48) Monocytes (%) (Auto) 13 % (0-9) Eosinophils (%) (Auto) 5 % (0-3) Basophils (%) (Auto) 2 % (0-3) Neutrophils # (Auto) 3.0 x10^3uL (1.8-7.7) Lymphocytes # (Auto) 0.7 x10^3/uL (1.0-4.8) Monocytes # (Auto) 0.6 x10^3/uL (0.0-1.1) Eosinophils # (Auto) 0.3 x10^3/uL (0.0-0.7) Basophils # (Auto) 0.1 x10^3/uL (0.0-0.2) Sodium Level 140 mmol/L (136-145) Potassium Level 3.8 mmol/L (3.5-5.1) Chloride Level 101 mmol/L (98-107) Carbon Dioxide Level 30 mmol/L (21-32) Anion Gap 9 (6-14) Blood Urea Nitrogen 33 mg/dL (8-26) Creatinine 5.2 mg/dL (0.7-1.3) Estimated GFR (Cockcroft-Gault) 14.1 BUN/Creatinine Ratio 6 (6-20) Glucose Level 114 mg/dL (70-99) Calcium Level 8.6 mg/dL (8.5-10.1) Total Bilirubin 0.5 mg/dL (0.2-1.0) Aspartate Amino Transf (AST/SGOT) 12 U/L (15-37) Alanine Aminotransferase (ALT/SGPT) 11 U/L (16-63) Alkaline Phosphatase 100 U/L (46-116) Total Protein 5.8 g/dL (6.4-8.2) Albumin 2.4 g/dL (3.4-5.0) Albumin/Globulin Ratio 0.7 (1.0-1.7) Review of Systems Constitutional: yes: alert, oriented Ears/Nose/Throat: Yes: no symptom reported Eyes: Yes: no symptom reported Pulmonary: Yes no symptom reported Cardiovascular: Yes no symptom reported Gastrointestional: Yes: other (SWELLING) Musculoskeletal: Yes: no symptom reported Skin: Yes no symptom reported Psychiatric/Neurological: Yes: no symptom reported Endocrine: Yes: no symptom reported Physical Exam HEENT: Neck Supple W Full Motion Chest: Symmetric LUNGS: Other (diminished bases) Heart: RRR (SR iwth pacs), murmurs (2/6 systolci murmur ) Abdomen: Other (ascites) Extremities: No Edema, No Calf Tenderness Neurology: alert, oriented, follow commands Assessment Assessment 1. Hypertension; now well-controlled 2. Mild troponin elevation; peak 0.126. Type II, demand ischemia in the setting of uncontrolled hypertension and renal failure. Cath a year ago without any significant obstructive disease. Echo showed normal LV systolic function 3. ESRD 4. Hx of CVA 5. Valvular disease; echo with mild AR, severe LVH and Grade II-pseudonormal filling dynamics. Recommendations Continue current BP regimen Fluid off-loading/management via HD as per nephrology ASA Will consider outpatient referral for possible workup for amyloidosis Supportive care ANJUM MCCORD MD 05/27/18 1529: CARDIO Progress Notes Plan Plan Pt. seen and examined. Agree with above [employer] CLEANER note. Plan for outpt evaluation for any infiltrative CMP given speckling pattern on echo with LVH. Thanks. Ok to DC today. Will try to coordinate for fat pad biopsy with gen surgery ELKIN SMITH APRN May 27, 2018 13:00 ANJUM MCCORD MD May 27, 2018 15:29
== END 2018-05-27 14:00 | disposition home or self-care (01) | DRG 280 ==
LOC: ER 03:49 → 1 WEST ICU 05:00 → 2 SOUTH 05-26 17:50
PROVIDERS: ADMIT Family Medicine; ATTEND Family Medicine
DX: I16.1 Hypertensive emergency (principal); I21.A1 Myocardial infarction type 2; N18.6 End stage renal disease; R18.8 Other ascites; K76.6 Portal hypertension; I38 Endocarditis, valve unspecified; I13.2 Hypertensive heart and chronic kidney disease with heart failure and with stage 5 chronic kidney disease, or end stage renal disease; D64.9 Anemia, unspecified; E78.5 Hyperlipidemia, unspecified; E87.70 Fluid overload, unspecified; F41.9 Anxiety disorder, unspecified; G62.9 Polyneuropathy, unspecified; I16.0 Hypertensive urgency; M19.90 Unspecified osteoarthritis, unspecified site; G89.29 Other chronic pain; J45.909 Unspecified asthma, uncomplicated; Z82.3 Family history of stroke; Z82.49 Family history of ischemic heart disease and other diseases of the circulatory system; Z86.73 Personal history of transient ischemic attack (TIA), and cerebral infarction without residual deficits; Z91.14 Patient's other noncompliance with medication regimen; Z91.15 Patient's noncompliance with renal dialysis; Z99.2 Dependence on renal dialysis; Z88.8 Allergy status to other drugs, medicaments and biological substances
CPT/HCPCS: 36415; 71045; 80053; 80061; 82390; 82550; 83690; 84484; 85025; 87641; 93306; 93976; 96365; 96366; 96375; 96376; G0480; J1200; J2405; J3010; J3490; J7050; 97530; 99285-25; J7030

== ENCOUNTER 2018-05-31 13:40 | Inpatient (IN) | payer OTHER ==
[~2018-05-31] VITALS: Ht 172.7 cm; Wt 66.7 kg
[~2018-05-31 13:40] MED LIST changes: -CALC1TAB70 PO; +CALC1TAB72 PO
[2018-05-31] MEDS ORDERED: MORPHINE SULFATE 4 MG/ML VIAL. IV ONE (14:00)
[2018-05-31] MEDS ORDERED: PROCHLORPERAZINE 10 MG/2 ML VIAL. IV ONE (14:00)
[2018-05-31 14:19] LABS: BASO # 0.1 x10^3/uL (0.0-0.2); BASO % 2 % (0-3); EOS # 0.1 x10^3/uL (0.0-0.7); EOS % 3 % (0-3); HEMATOCRIT 35.3 % (39.0-53.0); HEMOGLOBIN 11.4 g/dL (13.0-17.5); LYMPH # 0.6 x10^3/uL (1.0-4.8); LYMPH % 12 % (24-48); MEAN CORPUSCULAR HEMOGLOBIN 27 pg (25-35); MEAN CORPUSCULAR HGB CONC 32 g/dL (31-37); MEAN CORPUSCULAR VOLUME 83 fL (79-100); MONO # 0.4 x10^3/uL (0.0-1.1); MONO % 7 % (0-9); NEUT # 4.1 x10^3uL (1.8-7.7); NEUT % 77 % (31-73); PLATELET COUNT 231 x10^3/uL (140-400); RED BLOOD COUNT 4.27 x10^6/uL (4.30-5.70); RED CELL DISTRIBUTION WIDTH 17.8 % (11.5-14.5); WHITE BLOOD COUNT 5.3 x10^3/uL (4.0-11.0)
[2018-05-31 14:34] LABS: PROTHROMBIN TIME PATIENT 15.4 SEC (11.7-14.0)
[2018-05-31 14:37] LABS: CALCIUM 8.9 mg/dL (8.5-10.1); GFR 8.6; POTASSIUM 4.6 mmol/L (3.5-5.1)
--- NOTE | 2018-05-31 14:39 | RAD ---
Portable chest, 05/31/2018: HISTORY: Chest and abdominal pain Comparison is made to a study from 05/25/2018. The heart is enlarged. The pulmonary vascularity is normal. No pulmonary infiltrate is seen. There is no evidence of pleural fluid. Surgical plates and screws are evident in the lower cervical spine. IMPRESSION: 1. Cardiomegaly. 2. No acute infiltrates. Electronically signed by: Dominick Prajapati MD (05/31/2018 2:36 PM) [facility]
[2018-05-31 14:43] LABS: ALBUMIN 3.2 g/dL (3.4-5.0); ALBUMIN/GLOBULIN RATIO 0.8 (1.0-1.7); TOTAL PROTEIN 7.1 g/dL (6.4-8.2)
--- NOTE | 2018-05-31 15:08 | RAD ---
Examination: CT abdomen and pelvis without contrast HISTORY: History of abdominal pain, swelling COMPARISON: 05/19/2018 TECHNIQUE: Axial CT images of the abdomen pelvis were performed without contrast. Coronal and sagittal reformats are performed Exposure: One or more of the following individualized dose reduction techniques were utilized for this examination: 1. Automated exposure control 2. Adjustment of the mA and/or kV according to patient size 3. Use of iterative reconstruction technique FINDINGS: Partially visualized moderate cardiomegaly. There is a small 4 mm nodule identified in the right middle lobe of the lung minimal bibasilar lung atelectasis is identified. No evidence of free air noted in the abdomen. Small left pleural effusion. Large ascites is identified. The visualized noncontrasted liver, spleen, adrenals grossly appears unremarkable. The noncontrasted gallbladder, pancreas, adrenals grossly appears unremarkable. The stomach is mildly distended. The small bowel is nondilated. Feces and gas noted in the colon. Urinary bladder is mildly distended. Small umbilical hernia containing ascites. No evidence of intrarenal collecting system calculi identified in the bilateral kidneys. The bilateral kidneys appear small. Moderate aortic atherosclerosis. Mild degenerative changes lumbar spine. IMPRESSION: 1. Large ascites. 2. Small umbilical hernia containing ascites. 3. 4 mm nodule identified in the right middle lobe of the lung. Follow-up per Fleischner Society guidelines with a follow-up CT in 6-12 months. Electronically signed by: Faizan Stallworth MD (05/31/2018 3:05 PM) [id number]
[2018-05-31] MEDS ORDERED: ASPIRIN CHEWABLE 81 MG TABLET. PO ONE (15:30)
--- NOTE | 2018-05-31 15:30 | PHYS DOC ---
Past Medical History Past Medical History: Asthma, CVA, Hypertension, Renal Disease, Renal Failure, Other Additional Past Medical Histor: ESRD Past Surgical History: Cervical Fusion, Other Additional Past Surgical Histo: DIALYSIS GRAFT REMOVED FROM RIGHT SUBCLAVIAN, FISTULA L ARM,HERNIA Alcohol Use: None Drug Use: None Adult General Chief Complaint Chief Complaint: ABDOMINAL PAIN HPI HPI Patient is a 53 year old male presents with upper abdominal pain/lower chest pain. This is been present for approximately the past 36 hours. Worse with movement as well as exertion. Patient was recently admitted to the hospital for renal issues as well as ascites. He reports that he was doing well with that until 36 hours ago. He has not gone to his dialysis appointment today, he receives dialysis Wednesday, , and Wednesday. Denies any radiation of the discomfort. Reports that it's moderate to severe in intensity. [] Review of Systems Review of Systems Constitutional: Denies fever or chills [] Eyes: Denies change in visual acuity, redness, or eye pain [] HENT: Denies nasal congestion or sore throat [] Respiratory: Denies cough or shortness of breath [] Cardiovascular: No additional information not addressed in HPI [] GI: Denies nausea, vomiting, bloody stools or diarrhea, see history of present illness [] : Denies dysuria or hematuria [] Musculoskeletal: Denies back pain or joint pain [] Integument: Denies rash or skin lesions [] Neurologic: Denies headache, focal weakness or sensory changes [] Endocrine: Denies polyuria or polydipsia [] All other systems were reviewed and found to be within normal limits, except as documented in this note. Current Medications Current Medications Current Medications Medications (Trade) Dose Ordered Sig/Sascha Start Time Stop Time Status Last Admin Dose Admin Morphine Sulfate (Morphine Sulfate) 4 mg 1X ONCE 05/31/18 14:00 05/31/18 14:06 DC 05/31/18 14:30 4 MG Prochlorperazine Edisylate (Compazine) 5 mg 1X ONCE 05/31/18 14:00 05/31/18 14:06 DC 05/31/18 14:31 5 MG Allergies Allergies Allergies Coded Allergies Type Severity Reaction Last Updated Verified lisinopril Allergy Severe Swelling 06/01/17 Yes I S O L A T I O N *CONTACT* Allergy Unknown 01/17/18 Yes codeine Adverse Reaction Mild itching 05/31/18 Yes Physical Exam Physical Exam Constitutional: Well developed, well nourished, no acute distress, non-toxic appearance. [] HENT: Normocephalic, atraumatic, bilateral external ears normal, oropharynx moist, no oral exudates, nose normal. [] Eyes: PERRLA, EOMI, conjunctiva normal, no discharge. [] Neck: Normal range of motion, no tenderness, supple, no stridor. [] Cardiovascular:Heart rate regular rhythm, no murmur [] Lungs & Thorax: Bilateral breath sounds clear to auscultation [] Abdomen: Bowel sounds normal, soft, tenderness in the epigastric region, fluid wave is palpated, no masses, no pulsatile masses. [] Skin: Warm, dry, no erythema, no rash. [] Back: No tenderness, no CVA tenderness. [] Extremities: No tenderness, no cyanosis, no clubbing, ROM intact, no edema. [] Neurologic: Alert and oriented X 3, normal motor function, normal sensory function, no focal deficits noted. [] Psychologic: Affect normal, judgement normal, mood normal. [] Current Patient Data Vital Signs Vital Signs Date Time Temp Pulse Resp B/P (MAP) Pulse Ox O2 Delivery O2 Flow Rate FiO2 05/31/18 14:30 Room Air 05/31/18 13:45 97.8 70 19 176/110 (132) 95 97.8 Lab Values Laboratory Tests Test 05/31/18 14:10 White Blood Count 5.3 x10^3/uL (4.0-11.0) Red Blood Count 4.27 x10^6/uL (4.30-5.70) L Hemoglobin 11.4 g/dL (13.0-17.5) L Hematocrit 35.3 % (39.0-53.0) L Mean Corpuscular Volume 83 fL (79-100) Mean Corpuscular Hemoglobin 27 pg (25-35) Mean Corpuscular Hemoglobin Concent 32 g/dL (31-37) Red Cell Distribution Width 17.8 % (11.5-14.5) H Platelet Count 231 x10^3/uL (140-400) Neutrophils (%) (Auto) 77 % (31-73) H Lymphocytes (%) (Auto) 12 % (24-48) L Monocytes (%) (Auto) 7 % (0-9) Eosinophils (%) (Auto) 3 % (0-3) Basophils (%) (Auto) 2 % (0-3) Neutrophils # (Auto) 4.1 x10^3uL (1.8-7.7) Lymphocytes # (Auto) 0.6 x10^3/uL (1.0-4.8) L Monocytes # (Auto) 0.4 x10^3/uL (0.0-1.1) Eosinophils # (Auto) 0.1 x10^3/uL (0.0-0.7) Basophils # (Auto) 0.1 x10^3/uL (0.0-0.2) Prothrombin Time 15.4 SEC (11.7-14.0) H Prothrombin Time INR 1.3 (0.8-1.1) H Sodium Level 138 mmol/L (136-145) Potassium Level 4.6 mmol/L (3.5-5.1) Chloride Level 101 mmol/L (98-107) Carbon Dioxide Level 26 mmol/L (21-32) Anion Gap 11 (6-14) Blood Urea Nitrogen 63 mg/dL (8-26) H Creatinine 8.0 mg/dL (0.7-1.3) H Estimated GFR (Cockcroft-Gault) 8.6 BUN/Creatinine Ratio 8 (6-20) Glucose Level 159 mg/dL (70-99) H Calcium Level 8.9 mg/dL (8.5-10.1) Total Bilirubin 1.0 mg/dL (0.2-1.0) Aspartate Amino Transferase (AST) 16 U/L (15-37) Alanine Aminotransferase (ALT) 11 U/L (16-63) L Alkaline Phosphatase 112 U/L (46-116) Troponin I Quantitative 0.112 ng/mL (0.000-0.055) [id number]-Type Natriuretic Peptide > 49784 pg/mL (0-124) H Total Protein 7.1 g/dL (6.4-8.2) Albumin 3.2 g/dL (3.4-5.0) L Albumin/Globulin Ratio 0.8 (1.0-1.7) L Lipase 118 U/L (73-393) Laboratory Tests 05/31/18 14:10 Laboratory Tests 05/31/18 14:10 EKG EKG EKG shows a sinus rhythm at 69 bpm, normal axis, QTC of 505 ms, no ST elevation , nonspecific ST-T wave changes, no acute changes when compared with EKG of 2018.[] Radiology/Procedures Radiology/Procedures Examination: CT abdomen and pelvis without contrast HISTORY: History of abdominal pain, swelling COMPARISON: 05/19/2018 TECHNIQUE: Axial CT images of the abdomen pelvis were performed without contrast. Coronal and sagittal reformats are performed Exposure: One or more of the following individualized dose reduction techniques were utilized for this examination: 1. Automated exposure control 2. Adjustment of the mA and/or kV according to patient size 3. Use of iterative reconstruction technique FINDINGS: Partially visualized moderate cardiomegaly. There is a small 4 mm nodule identified in the right middle lobe of the lung minimal bibasilar lung atelectasis is identified. No evidence of free air noted in the abdomen. Small left pleural effusion. Large ascites is identified. The visualized noncontrasted liver, spleen, adrenals grossly appears unremarkable. The noncontrasted gallbladder, pancreas, adrenals grossly appears unremarkable. The stomach is mildly distended. The small bowel is nondilated. Feces and gas noted in the colon. Urinary bladder is mildly distended. Small umbilical hernia containing ascites. No evidence of intrarenal collecting system calculi identified in the bilateral kidneys. The bilateral kidneys appear small. Moderate aortic atherosclerosis. Mild degenerative changes lumbar spine. IMPRESSION: 1. Large ascites. 2. Small umbilical hernia containing ascites. 3. 4 mm nodule identified in the right middle lobe of the lung. Follow-up per Fleischner Society guidelines with a follow-up CT in 6-12 months. Electronically signed by: Faizan Stallworth MD (05/31/2018 3:05 PM) [place] [id number] Portable chest, 05/31/2018: HISTORY: Chest and abdominal pain Comparison is made to a study from 05/25/2018. The heart is enlarged. The pulmonary vascularity is normal. No pulmonary infiltrate is seen. There is no evidence of pleural fluid. Surgical plates and screws are evident in the lower cervical spine. IMPRESSION: 1. Cardiomegaly. 2. No acute infiltrates. Electronically signed by: Dominick Prajapati MD (05/31/2018 2:36 PM) [facility][] Course & Med Decision Making Course & Med Decision Making Pertinent Labs and Imaging studies reviewed. (See chart for details) ED course and medical decision making: Patient arrived, was placed in bed, in tolerated exam well. He received medication for the discomfort. It was noted that he had the elevated troponin, which is most likely consistent with his end- stage renal disease. However he was given aspirin for the possibility that this is of cardiac etiology. Given the ascites, along with the elevated troponin, consultation was made with hospitalist service for admission and further evaluation and treatment. Patient was informed of the findings and the plan, he voiced understanding. All questions were answered. He was admitted in improved condition.[] Dragon Disclaimer Dragon Disclaimer This electronic medical record was generated, in whole or in part, using a voice recognition dictation system. Departure Departure Impression: Primary Impression: ESRD (end stage renal disease) Additional Impressions: Dialysis patient Ascites Disposition: ADMITTED INPATIENT Admitting Physician: Other Condition: IMPROVED Referrals: NO PCP (PCP) Problem Qualifiers Additional Impressions: Ascites Ascites type: other type Qualified Codes: R18.8 - Other ascites SARAH WHITTINGTON DO May 31, 2018 15:30
[2018-05-31] MEDS ORDERED: ACETAMINOPHEN 325 MG TABLET. PO PRN (15:45)
[2018-05-31] MEDS ORDERED: MORPHINE SULFATE 4 MG/ML VIAL. IV PRN ×2 (15:45→17:45)
[2018-05-31] MEDS ORDERED: ONDANSETRON PF 4 MG/2 ML VIAL. IV PRN (15:45)
--- NOTE | 2018-05-31 17:28 | PDOC1 ---
History and Physical Date of Admission Date of Admission 05/31/2018 Identification/Chief Complaint Chief Complaint Abdominal pain Problems: (1) Abdominal pain (2) Ascites (3) ESRD (end stage renal disease) (4) ESRD (end stage renal disease) (5) Hypertension Source Source: Chart review, Patient History of Present Illness History of Present Illness Patient is a 53-year-old gentleman with past apical history of end-stage renal disease on hemodialysis who has been admitted several times over the last month for a similar presentation. The patient comes in complaining with abdominal pain he was dismissed from this institution approximately 2-3 days ago he has been evaluated by GI and hepatic workup has been so far negative. On his last hospital admission ceruloplasmin level was requested this is not available yet but unlikely that this patient is suffering from Link's disease. The patient denies dietary transgressions he says that he does not drink excessive fluids and he mainly eats eyes throughout the day he has not been quantifying the amount of cups of ice that he takes in a day. The patient denies chills no nausea no vomiting discomfort is mainly from this ascites that seems to stem from his underlying renal disease. He has dialysis scheduled for today but he did not receive treatment. We have consulted nephrology for management of his dialysis. The patient denies fever no cold-like symptoms no chest pain or angina type described by the patient. He denies palpitations no syncopal episodes he denies black tarry stools no peripheral edema is reported. We have been asked to admit the patient for a possible paracentesis. The patient is not exhibiting increased work of breathing mainly is just a discomfort due to his ascites patient does not exhibit signs of peritonitis bowel sounds are present. Plan of care explained in detail and all concerns were addressed to the best of my abilities Past Medical History Cardiovascular: HTN Pulmonary: Asthma CENTRAL NERVOUS SYSTEM: CVA, Periperal neuropathy GI: No pertinent hx Heme/Onc: Anemia NOS Hepatobiliary: No pertinent hx Psych: Anxiety Rheumatologic: No pertinent hx Infectious disease: No pertinent hx Renal/: Chronic renal failure Endocrine: No pertinent hx Past Surgical History Past Surgical History: Hernia Repair, Other Family History Family History: Heart Disease, Hypertension, Stroke Social History ALCOHOL: none Drugs: None Current Problem List Problem List Problems Medical Problems: (1) Dialysis patient Status: Acute Current Medications Current Medications Current Medications Medications (Trade) Dose Ordered Sig/Sascha Start Time Stop Time Status Last Admin Dose Admin Acetaminophen (Tylenol) 650 mg PRN Q4HRS PRN 05/31/18 15:45 06/01/18 15:44 Aspirin (Children'S Aspirin) 324 mg 1X ONCE 05/31/18 15:30 05/31/18 15:31 DC 05/31/18 15:30 324 MG Morphine Sulfate (Morphine Sulfate) 2 mg PRN Q2HR PRN 05/31/18 15:45 06/01/18 15:44 Ondansetron HCl (Zofran) 4 mg PRN Q8HRS PRN 05/31/18 15:45 06/01/18 15:44 Prochlorperazine Edisylate (Compazine) 5 mg 1X ONCE 05/31/18 14:00 05/31/18 14:06 DC 05/31/18 14:31 5 MG Allergies Allergies Allergies Coded Allergies Type Severity Reaction Last Updated Verified lisinopril Allergy Severe Swelling 06/01/17 Yes I S O L A T I O N *CONTACT* Allergy Unknown 01/17/18 Yes codeine Adverse Reaction Mild itching 05/31/18 Yes ROS Review of System CONSTITUTIONAL: No fever or chills EYES: No recent changes SKIN: No rash or itching CARDIOVASCULAR: No chest pain, syncope, palpitations, or edema RESPIRATORY: No SOB or cough GASTROINTESTINAL: No nausea, vomiting or abdominal pain NEUROLOGICAL: No headaches or weakness ENDOCRINE: No cold or heat intolerance GENITOURINARY: No urgency or frequency of urination MUSCULOSKELETAL: No back pain or joint pain LYMPHATICS: No enlarged lymph nodes PSYCHIATRIC: No anxiety or depression Physical Exam Physical Exam GEN.: Chronically ill appearing No apparent distress. Alert and oriented. HEENT: Head is normocephalic, atraumatic NECK: Supple. LUNGS: Clear to auscultation. HEART: RRR, S1, S2 present. Peripheral pulses intact ABDOMEN: Situs evident on visual examination he has a umbilical hernia as well no peritoneal signs Soft, nontender. Positive bowel sounds. EXTREMITIES: Without any cyanosis. NEUROLOGIC: Normal speech, normal tone PSYCHIATRIC: Normal affect, normal mood. SKIN: No ulcerations Vitals Vitals Vital Signs Date Time Temp Pulse Resp B/P (MAP) Pulse Ox O2 Delivery O2 Flow Rate FiO2 05/31/18 16:30 64 179/115 (136) 92 Room Air 05/31/18 13:45 97.8 19 97.8 Labs Labs Laboratory Tests Test 05/31/18 14:10 White Blood Count 5.3 x10^3/uL (4.0-11.0) Red Blood Count 4.27 x10^6/uL (4.30-5.70) Hemoglobin 11.4 g/dL (13.0-17.5) Hematocrit 35.3 % (39.0-53.0) Mean Corpuscular Volume 83 fL (79-100) Mean Corpuscular Hemoglobin 27 pg (25-35) Mean Corpuscular Hemoglobin Concent 32 g/dL (31-37) Red Cell Distribution Width 17.8 % (11.5-14.5) Platelet Count 231 x10^3/uL (140-400) Neutrophils (%) (Auto) 77 % (31-73) Lymphocytes (%) (Auto) 12 % (24-48) Monocytes (%) (Auto) 7 % (0-9) Eosinophils (%) (Auto) 3 % (0-3) Basophils (%) (Auto) 2 % (0-3) Neutrophils # (Auto) 4.1 x10^3uL (1.8-7.7) Lymphocytes # (Auto) 0.6 x10^3/uL (1.0-4.8) Monocytes # (Auto) 0.4 x10^3/uL (0.0-1.1) Eosinophils # (Auto) 0.1 x10^3/uL (0.0-0.7) Basophils # (Auto) 0.1 x10^3/uL (0.0-0.2) Prothrombin Time 15.4 SEC (11.7-14.0) Prothromb Time International Ratio 1.3 (0.8-1.1) Sodium Level 138 mmol/L (136-145) Potassium Level 4.6 mmol/L (3.5-5.1) Chloride Level 101 mmol/L (98-107) Carbon Dioxide Level 26 mmol/L (21-32) Anion Gap 11 (6-14) Blood Urea Nitrogen 63 mg/dL (8-26) Creatinine 8.0 mg/dL (0.7-1.3) Estimated GFR (Cockcroft-Gault) 8.6 BUN/Creatinine Ratio 8 (6-20) Glucose Level 159 mg/dL (70-99) Calcium Level 8.9 mg/dL (8.5-10.1) Total Bilirubin 1.0 mg/dL (0.2-1.0) Aspartate Amino Transf (AST/SGOT) 16 U/L (15-37) Alanine Aminotransferase (ALT/SGPT) 11 U/L (16-63) Alkaline Phosphatase 112 U/L (46-116) Troponin I Quantitative 0.112 ng/mL (0.000-0.055) GZ-Htk-D-Type Natriuretic Peptide > 90859 pg/mL (0-124) Total Protein 7.1 g/dL (6.4-8.2) Albumin 3.2 g/dL (3.4-5.0) Albumin/Globulin Ratio 0.8 (1.0-1.7) Lipase 118 U/L (73-393) Laboratory Tests Test 05/31/18 14:10 White Blood Count 5.3 x10^3/uL (4.0-11.0) Red Blood Count 4.27 x10^6/uL (4.30-5.70) Hemoglobin 11.4 g/dL (13.0-17.5) Hematocrit 35.3 % (39.0-53.0) Mean Corpuscular Volume 83 fL (79-100) Mean Corpuscular Hemoglobin 27 pg (25-35) Mean Corpuscular Hemoglobin Concent 32 g/dL (31-37) Red Cell Distribution Width 17.8 % (11.5-14.5) Platelet Count 231 x10^3/uL (140-400) Neutrophils (%) (Auto) 77 % (31-73) Lymphocytes (%) (Auto) 12 % (24-48) Monocytes (%) (Auto) 7 % (0-9) Eosinophils (%) (Auto) 3 % (0-3) Basophils (%) (Auto) 2 % (0-3) Neutrophils # (Auto) 4.1 x10^3uL (1.8-7.7) Lymphocytes # (Auto) 0.6 x10^3/uL (1.0-4.8) Monocytes # (Auto) 0.4 x10^3/uL (0.0-1.1) Eosinophils # (Auto) 0.1 x10^3/uL (0.0-0.7) Basophils # (Auto) 0.1 x10^3/uL (0.0-0.2) Prothrombin Time 15.4 SEC (11.7-14.0) Prothromb Time International Ratio 1.3 (0.8-1.1) Sodium Level 138 mmol/L (136-145) Potassium Level 4.6 mmol/L (3.5-5.1) Chloride Level 101 mmol/L (98-107) Carbon Dioxide Level 26 mmol/L (21-32) Anion Gap 11 (6-14) Blood Urea Nitrogen 63 mg/dL (8-26) Creatinine 8.0 mg/dL (0.7-1.3) Estimated GFR (Cockcroft-Gault) 8.6 BUN/Creatinine Ratio 8 (6-20) Glucose Level 159 mg/dL (70-99) Calcium Level 8.9 mg/dL (8.5-10.1) Total Bilirubin 1.0 mg/dL (0.2-1.0) Aspartate Amino Transf (AST/SGOT) 16 U/L (15-37) Alanine Aminotransferase (ALT/SGPT) 11 U/L (16-63) Alkaline Phosphatase 112 U/L (46-116) Troponin I Quantitative 0.112 ng/mL (0.000-0.055) XM-Kty-K-Type Natriuretic Peptide > 57111 pg/mL (0-124) Total Protein 7.1 g/dL (6.4-8.2) Albumin 3.2 g/dL (3.4-5.0) Albumin/Globulin Ratio 0.8 (1.0-1.7) Lipase 118 U/L (73-393) Images Images IMAGING REPORT Signed PATIENT: FRANKIE GARCIA ACCOUNT: [id number] : 1965 LOCATION: ER AGE: 53 SEX: M EXAM STATUS: REG ER ORD. PHYSICIAN: SARAH WHITTINGTON DO REASON: upper abd pain, swelling PROCEDURE: CT ABDOMEN PELVIS WO CONTRAST Examination: CT abdomen and pelvis without contrast HISTORY: History of abdominal pain, swelling COMPARISON: 05/19/2018 TECHNIQUE: Axial CT images of the abdomen pelvis were performed without contrast. Coronal and sagittal reformats are performed Exposure: One or more of the following individualized dose reduction techniques were utilized for this examination: 1. Automated exposure control 2. Adjustment of the mA and/or kV according to patient size 3. Use of iterative reconstruction technique FINDINGS: Partially visualized moderate cardiomegaly. There is a small 4 mm nodule identified in the right middle lobe of the lung minimal bibasilar lung atelectasis is identified. No evidence of free air noted in the abdomen. Small left pleural effusion. Large ascites is identified. The visualized noncontrasted liver, spleen, adrenals grossly appears unremarkable. The noncontrasted gallbladder, pancreas, adrenals grossly appears unremarkable. The stomach is mildly distended. The small bowel is nondilated. Feces and gas noted in the colon. Urinary bladder is mildly distended. Small umbilical hernia containing ascites. No evidence of intrarenal collecting system calculi identified in the bilateral kidneys. The bilateral kidneys appear small. Moderate aortic atherosclerosis. Mild degenerative changes lumbar spine. IMPRESSION: 1. Large ascites. 2. Small umbilical hernia containing ascites. 3. 4 mm nodule identified in the right middle lobe of the lung. Follow-up per Fleischner Society guidelines with a follow-up CT in 6-12 months. Electronically signed by: Faizan Stallworth MD (05/31/2018 3:05 PM) [place] [id number] DICTATED and SIGNED BY: FAIZAN STALLWORTH MD DATE: 05/31/18 1459 VTE Prophylaxis Ordered VTE Prophylaxis Devices: No VTE Pharmacological Prophylaxi: Yes Assessment/Plan Assessment/Plan New-onset ascites etiology most likely related to hypoalbuminemia. Liver disease work up so far negative. Bacterial conjunctivitis End-stage renal disease on hemodialysis Abdominal pain secondary to the ascites, very low suspicion for SBP or other surgical process given the benign nature of his physical exam Essential hypertension currently fairly controlled History of GERD Plan: Consult nephrology for dialysis management We'll consult interventional radiology for paracentesis Start ciprofloxacin ophthalmic for conjunctivitis Resume home meds Reassess in the a.m., further recommendations based on clinical course DVT prophylaxis with heparin Problem Qualifiers (1) Ascites: Ascites type: other type Qualified Codes: R18.8 - Other ascites ZAK COTTO MD May 31, 2018 17:28
[2018-05-31] MEDS: CIPROFLOXACIN 0.3% OPHTH SOLUTION 5ML BOTTLE. OU SCH ×2 (18:33→20:25)
[2018-05-31 19:20] VITALS: BP 160/103
[2018-05-31] MEDS: HYDROcodone/APAP 5/325MG 1 TAB TABLET PO PRN (20:25)
[2018-05-31] MEDS: cloNIDine HCL 0.1 MG TABLET PO SCH (20:25)
[2018-05-31 23:20] VITALS: BP 150/106
[2018-05-31] MEDS ORDERED: hydrALAZINE 20 MG/ML VIAL. IVP PRN (23:30)
[2018-06-01 02:55] VITALS: BP 155/106
[2018-06-01] MEDS: HYDROcodone/APAP 5/325MG 1 TAB TABLET PO PRN ×3 (04:34→23:19)
[2018-06-01 05:17] LABS: BILIRUBIN,URINE NEGATIVE (NEG); CLARITY,URINE CLEAR; COLOR,URINE YELLOW; NITRITE,URINE NEGATIVE (NEG); PROTEIN,URINE >=300 mg/dL (NEG-TRACE)
[2018-06-01 05:22] LABS: BACTERIA,URINE 0 /HPF (0-FEW); HYALINE CASTS, URINE FEW /HPF; RBC,URINE OCC /HPF (0-2); SQUAMOUS EPITHELIAL CELL,UR FEW /LPF; WBC,URINE OCC /HPF (0-4)
[2018-06-01 05:24] LABS: BARBITURATES NEG (NEG); BENZODIAZEPINES NEG (NEG); CANNABINOIDS NEG (NEG); COCAINE NEG (NEG); METHADONE NEG (NEG); OPIATES POS (NEG); PHENCYCLIDINE NEG (NEG)
[2018-06-01 05:26] LABS: AMPHETAMINE/METHAMPHETAMINE NEG (NEG)
[2018-06-01 06:13] LABS: ALBUMIN 3.2 g/dL (3.4-5.0); ALBUMIN/GLOBULIN RATIO 0.8 (1.0-1.7); CALCIUM 8.9 mg/dL (8.5-10.1); CREATININE 8.4 mg/dL (0.7-1.3); GFR 8.1; POTASSIUM 4.5 mmol/L (3.5-5.1); TOTAL BILIRUBIN 0.9 mg/dL (0.2-1.0); TOTAL PROTEIN 7.1 g/dL (6.4-8.2)
[2018-06-01 06:24] LABS: BASO # 0.1 x10^3/uL (0.0-0.2); BASO % 2 % (0-3); EOS # 0.3 x10^3/uL (0.0-0.7); EOS % 6 % (0-3); HEMATOCRIT 36.9 % (39.0-53.0); HEMOGLOBIN 11.9 g/dL (13.0-17.5); LYMPH # 0.8 x10^3/uL (1.0-4.8); LYMPH % 18 % (24-48); MEAN CORPUSCULAR HEMOGLOBIN 27 pg (25-35); MEAN CORPUSCULAR HGB CONC 32 g/dL (31-37); MEAN CORPUSCULAR VOLUME 83 fL (79-100); MONO # 0.5 x10^3/uL (0.0-1.1); MONO % 10 % (0-9); NEUT % 65 % (31-73); PLATELET COUNT 259 x10^3/uL (140-400); RED BLOOD COUNT 4.45 x10^6/uL (4.30-5.70); WHITE BLOOD COUNT 4.6 x10^3/uL (4.0-11.0)
[2018-06-01 07:00] VITALS: BP 158/105
[2018-06-01] MEDS ORDERED: ALBUMIN HUMAN 25% 200 ML IV PRN (08:00)
[2018-06-01] MEDS: ASPIRIN ENTERIC COATED 325 MG TABLET.DR. PO SCH (08:00)
[2018-06-01] MEDS ORDERED: LIDOCAINE 1% PF 2 ML VIAL. ONE ×2 (08:00→08:01)
[2018-06-01] MEDS ORDERED: LIDOCAINE 1% PF 2 ML VIAL. INJ ONE (08:00)
[2018-06-01] MEDS: CARVEDILOL 12.5 MG TABLET. PO SCH ×3 (08:00→16:28)
[2018-06-01] MEDS ORDERED: IV NORMAL SALINE 1000ML BAG 1,000 ML IV PRN ×2 (08:00)
[2018-06-01] MEDS ORDERED: DIALYSIS PATIENT. MC PRN ×2 (08:30)
[2018-06-01] MEDS: CIPROFLOXACIN 0.3% OPHTH SOLUTION 5ML BOTTLE. OU SCH ×4 (09:00→20:10)
[2018-06-01] MEDS: FUROSEMIDE 40 MG TABLET. PO SCH ×2 (09:00→13:46)
--- NOTE | 2018-06-01 09:24 | NUR ---
IP: Pt has a recent hx of + mrsa acreen on 05/25/18. Pt to be in contact precautions. No need to retest at this time.
--- NOTE | 2018-06-01 09:40 | PDOC ---
Subjective: Subjective: Please see GI consult from 05/25/18. New onset ascites this month s/p paracentesis on 05/19 (6.6L) - cytology, SERGIO, AMA , ASMA, viral Hep panel, ceruloplasmin all negative/normal. Doppler w/ patent portal vein. Consideration for nephrogenic or cardiac ascites. Back to ER yesterday w/ chest pain and abd distention/discomfort, also had the wrong pain meds at home. Objective: Vital Signs: Vital Signs Date Time Temp Pulse Resp B/P (MAP) Pulse Ox O2 Delivery O2 Flow Rate FiO2 06/01/18 07:00 97.8 61 18 158/105 (122) 93 Room Air 97.8 Labs: Laboratory Tests Test 05/31/18 14:10 05/31/18 18:30 05/31/18 20:52 05/31/18 21:45 White Blood Count 5.3 x10^3/uL Red Blood Count 4.27 x10^6/uL Hemoglobin 11.4 g/dL Hematocrit 35.3 % Mean Corpuscular Volume 83 fL Mean Corpuscular Hemoglobin 27 pg Mean Corpuscular Hemoglobin Concent 32 g/dL Red Cell Distribution Width 17.8 % Platelet Count 231 x10^3/uL Neutrophils (%) (Auto) 77 % Lymphocytes (%) (Auto) 12 % Monocytes (%) (Auto) 7 % Eosinophils (%) (Auto) 3 % Basophils (%) (Auto) 2 % Neutrophils # (Auto) 4.1 x10^3uL Lymphocytes # (Auto) 0.6 x10^3/uL Monocytes # (Auto) 0.4 x10^3/uL Eosinophils # (Auto) 0.1 x10^3/uL Basophils # (Auto) 0.1 x10^3/uL Prothrombin Time 15.4 SEC Prothromb Time International Ratio 1.3 Sodium Level 138 mmol/L Potassium Level 4.6 mmol/L Chloride Level 101 mmol/L Carbon Dioxide Level 26 mmol/L Anion Gap 11 Blood Urea Nitrogen 63 mg/dL Creatinine 8.0 mg/dL Estimated GFR (Cockcroft-Gault) 8.6 BUN/Creatinine Ratio 8 Glucose Level 159 mg/dL Calcium Level 8.9 mg/dL Total Bilirubin 1.0 mg/dL Aspartate Amino Transf (AST/SGOT) 16 U/L Alanine Aminotransferase (ALT/SGPT) 11 U/L Alkaline Phosphatase 112 U/L Troponin I Quantitative 0.112 ng/mL 0.104 ng/mL 0.096 ng/mL IF-Yij-A-Type Natriuretic Peptide > 97611 pg/mL Total Protein 7.1 g/dL Albumin 3.2 g/dL Albumin/Globulin Ratio 0.8 Lipase 118 U/L Glucose (Fingerstick) 125 mg/dL Test 06/01/18 05:05 06/01/18 05:40 Urine Collection Type Unknown Urine Color Yellow Urine Clarity Clear Urine pH 7.0 Urine Specific [place] 1.015 Urine Protein >=300 mg/dL Urine Glucose (UA) Negative mg/dL Urine Ketones (Stick) Negative mg/dL Urine Blood Negative Urine Nitrite Negative Urine Bilirubin Negative Urine Urobilinogen Dipstick 1.0 mg/dL Urine Leukocyte Esterase Negative Urine RBC Occ /HPF Urine WBC Occ /HPF Urine Squamous Epithelial Cells Few /LPF Urine Bacteria 0 /HPF Urine Hyaline Casts Few /HPF Urine Mucus Slight /LPF Urine Opiates Screen Pos Urine Methadone Screen Neg Urine Barbiturates Neg Urine Phencyclidine Screen Neg Urine Amphetamine/Methamphetamine Neg Urine Benzodiazepines Screen Neg Urine Cocaine Screen Neg Urine Cannabinoids Screen Neg Urine Ethyl Alcohol Neg White Blood Count 4.6 x10^3/uL Red Blood Count 4.45 x10^6/uL Hemoglobin 11.9 g/dL Hematocrit 36.9 % Mean Corpuscular Volume 83 fL Mean Corpuscular Hemoglobin 27 pg Mean Corpuscular Hemoglobin Concent 32 g/dL Red Cell Distribution Width 18.0 % Platelet Count 259 x10^3/uL Neutrophils (%) (Auto) 65 % Lymphocytes (%) (Auto) 18 % Monocytes (%) (Auto) 10 % Eosinophils (%) (Auto) 6 % Basophils (%) (Auto) 2 % Neutrophils # (Auto) 3.0 x10^3uL Lymphocytes # (Auto) 0.8 x10^3/uL Monocytes # (Auto) 0.5 x10^3/uL Eosinophils # (Auto) 0.3 x10^3/uL Basophils # (Auto) 0.1 x10^3/uL Sodium Level 139 mmol/L Potassium Level 4.5 mmol/L Chloride Level 101 mmol/L Carbon Dioxide Level 24 mmol/L Anion Gap 14 Blood Urea Nitrogen 65 mg/dL Creatinine 8.4 mg/dL Estimated GFR (Cockcroft-Gault) 8.1 BUN/Creatinine Ratio 8 Glucose Level 136 mg/dL Calcium Level 8.9 mg/dL Total Bilirubin 0.9 mg/dL Aspartate Amino Transf (AST/SGOT) 10 U/L Alanine Aminotransferase (ALT/SGPT) 14 U/L Alkaline Phosphatase 102 U/L Total Protein 7.1 g/dL Albumin 3.2 g/dL Albumin/Globulin Ratio 0.8 Imaging: CXR 05/31 IMPRESSION: 1. Cardiomegaly. 2. No acute infiltrates. CT A/P 05/31 IMPRESSION: 1. Large ascites. 2. Small umbilical hernia containing ascites. 3. 4 mm nodule identified in the right middle lobe of the lung. Follow-up per Fleischner Society guidelines with a follow-up CT in 6-12 months. PE: GEN: dialyzing LUNGS: CTAB HEART: RRR - central chest TPP ABD: round/distended - probably more tight than last week, some discomfort NEURO/PSYCH: A & O 3 A/P: Chest pain, mildly elevated troponin ESRD on HD Ascites Anemia - stable -- Could pursue paracentesis after dialysis - he reports some discomfort. ?consider wedged hepatic venous pressure measurement +/- liver biopsy NEGAR CLEMONS Jun 01, 2018 09:40
--- NOTE | 2018-06-01 10:24 | EKG ---
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
--- NOTE | 2018-06-01 11:35 | NUR ---
SW following for discharge planning. Discussed with RN, pt has Dialysis Wednesday, , Wednesday. Pt having dialysis at [facility] today. No SW needs at this time. SW will continue to follow.
--- NOTE | 2018-06-01 11:42 | NUR ---
0800 to Dialysis per bed . All am meds and bkfst held at this time. Denies physical c/o at this time
[2018-06-01] MEDS: cloNIDine HCL 0.1 MG TABLET PO SCH ×3 (13:44→20:10)
[2018-06-01] MEDS: FERROUS SULFATE 325 MG TABLET. PO SCH ×2 (13:44→16:28)
[2018-06-01] MEDS: amLODIPine BESYLATE 10 MG TABLET PO SCH (13:44)
--- NOTE | 2018-06-01 13:46 | PDOC2 ---
CONSULT Date of Consult Date of Consult DATE: 06/01/18 TIME: 13:35 Reason for Consult Reason for Consult: ESRD TTS Source Source: Chart review, Patient History of Present Illness Reason for Visit: Patient is a 53-year-old AAM with ESRD on HD TTS , admitted with c/o abdominal pain,has been admitted several times over the last month for a similar presentation. He has been evaluated by GI and hepatic workup has been so far negative. He denies Fever, chills , nausea or vomiting . He missed HD yesterday as was in ED . Past Medical History Cardiovascular: HTN Pulmonary: Asthma CENTRAL NERVOUS SYSTEM: CVA, Periperal neuropathy GI: No pertinent hx Heme/Onc: Anemia NOS Hepatobiliary: No pertinent hx Psych: Anxiety Musculoskeletal: Osteoarthritis Rheumatologic: No pertinent hx Infectious disease: No pertinent hx Renal/: Chronic renal failure Endocrine: No pertinent hx Past Surgical History Past Surgical History: Hernia Repair, Other Family History Family History: Heart Disease, Hypertension, Stroke Social History ALCOHOL: none Drugs: None Lives: with Family Current Problem List Problem List Problems Medical Problems: (1) Dialysis patient Status: Acute Current Medications Current Medications Current Medications Prochlorperazine Edisylate (Compazine) 5 mg 1X ONCE IV Last administered on at 14:31; Start 05/31/18 at 14:00; Stop 05/31/18 at 14:06; Status DC Morphine Sulfate (Morphine Sulfate) 4 mg 1X ONCE IV Last administered on at 14:30; Start 05/31/18 at 14:00; Stop 05/31/18 at 14:06; Status DC Aspirin (Children'S Aspirin) 324 mg 1X ONCE PO Last administered on 05/31/18at 15:30; Start 05/31/18 at 15:30; Stop 05/31/18 at 15:31; Status DC Ondansetron HCl (Zofran) 4 mg PRN Q8HRS PRN IV NAUSEA/VOMITING; Start 05/31/18 at 15:45; Stop 06/01/18 at 15:44 Morphine Sulfate (Morphine Sulfate) 2 mg PRN Q2HR PRN IV PAIN; Start 05/31/18 at 15:45; Stop 06/01/18 at 15:44 Acetaminophen (Tylenol) 650 mg PRN Q4HRS PRN PO FEVER; Start 05/31/18 at 15:45 ; Stop 06/01/18 at 15:44 Ciprofloxacin (Ciloxan Ophth) 1 drop QID OU Last administered on 05/31/18at 20: 25; Start 05/31/18 at 18:00 Alprazolam (Xanax) 0.25 mg PRN BID PRN PO ANXIETY / AGITATION; Start 05/31/18 at 17:30 Amlodipine Besylate (Norvasc) 10 mg DAILY PO ; Start 06/01/18 at 09:00 Aspirin (Ecotrin) 325 mg DAILYWBKFT PO ; Start 06/01/18 at 08:00 Calcium/Vitamin D (Oscal D 500mg/ 200uts) 1 tab BIDWMEALS PO ; Start 06/01/18 at 17:00 Carvedilol (Coreg) 12.5 mg BIDWMEALS PO ; Start 06/01/18 at 08:00 Clonidine HCl (Catapres) 0.1 mg TID PO Last administered on 05/31/18at 20:25; Start 05/31/18 at 21:00 Ferrous Sulfate (Feosol) 325 mg BIDWMEALS PO ; Start 06/01/18 at 08:00 Furosemide (Lasix) 40 mg BID92 PO ; Start 06/01/18 at 09:00 Acetaminophen/ Hydrocodone Bitart (Lortab 5/325) 1 tab PRN Q6HRS PRN PO SEVERE PAIN Last administered on 06/01/18at 04:34; Start 05/31/18 at 17:30 Hydralazine HCl (Apresoline) 50 mg TID PO Last administered on 05/31/18at 20:25 ; Start 05/31/18 at 21:00 Morphine Sulfate (Morphine Sulfate) 2 mg PRN Q2HR PRN IV PAIN; Start 05/31/18 at 17:45 Hydralazine HCl (Apresoline Inj) 25 mg PRN Q6HRS PRN IVP ELEVATED BP, SEE COMMENTS Last administered on 05/31/18at 23:51; Start 05/31/18 at 23:30 Lidocaine HCl (Xylocaine-Mpf 1% 2ml Vial) 2 ml STK-MED ONCE .ROUTE ; Start 06/01 at 08:01; Stop 06/01/18 at 08:02; Status DC Sodium Chloride 1,000 ml @ 1,000 mls/hr Q1H PRN IV hypotension; Start 06/01/18 at 08:00; Stop 06/01/18 at 13:59 Albumin Human 200 ml @ 200 mls/hr 1X PRN PRN IV Hypotension; Start 06/01/18 at 08:00; Stop 06/01/18 at 13:59 Sodium Chloride 1,000 ml @ 400 mls/hr Q2H30M PRN IV PATENCY; Start 06/01/18 at 08:00; Stop 06/01/18 at 19:59 Info (PHARMACY MONITORING -- do not chart) 1 each PRN DAILY PRN MC SEE COMMENTS ; Start 06/01/18 at 08:30; Status UNV Info (PHARMACY MONITORING -- do not chart) 1 each PRN DAILY PRN MC SEE COMMENTS ; Start 06/01/18 at 08:30 Lidocaine HCl (Xylocaine-Mpf 1% 2ml Vial) 2 ml 1X ONCE INJ ; Start 06/01/18 at 08:00; Stop 06/01/18 at 08:28; Status DC Active Scripts Active Hydrocodone-Apap 5-325 (Hydrocodone Bit/Acetaminophen) 1 Each Tablet 1 Tab PO PRN Q6HRS PRN Furosemide 40 Mg Tablet 40 Mg PO BID92 30 Days Oyster Shell 500 Mg + Vit D Tb (Calcium Carbonate/Vitamin D3) 1 Each Tablet 1 Tab PO BIDWMEALS 30 Days Alprazolam 0.25 Mg Tablet 0.25 Mg PO PRN BID PRN 10 Days Feosol (Ferrous Sulfate) 325 Mg Tablet 325 Mg PO BIDWMEALS 30 Days Aspirin Ec (Aspirin) 325 Mg Tablet. 325 Mg PO DAILYWBKFT 30 Days Reported Amlodipine Besylate 10 Mg Tablet 10 Mg PO DAILY Carvedilol (Carvedilol) 12.5 Mg Tablet 12.5 Mg PO BIDWMEALS Hydralazine Hcl 50 Mg Tablet 1 Tab PO TID Clonidine Hcl 0.1 Mg Tablet 0.1 Mg PO TID Allergies Allergies: Coded Allergies: lisinopril (Verified Allergy, Severe, Swelling, 06/01/17) I S O L A T I O N *CONTACT* (Verified Allergy, Unknown, 01/17/18) +MRSA nares 01/15/18 codeine (Verified Adverse Reaction, Mild, itching, 05/31/18) ROS Review of System As per HPI Physical Exam Physical Exam GEN.: NAD HEENT: OM moist NECK: Supple. LUNGS: Clear to auscultation. HEART: RRR, S1, S2 present. ABDOMEN: Soft, nontender. 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 Ascites - per GI Anemia- Hgb stable No Indication for AMAN HTN- Continue Antihypertensives Labs Labs Laboratory Tests Test 05/31/18 14:10 05/31/18 18:30 05/31/18 20:52 05/31/18 21:45 White Blood Count 5.3 x10^3/uL (4.0-11.0) Red Blood Count 4.27 x10^6/uL (4.30-5.70) Hemoglobin 11.4 g/dL (13.0-17.5) Hematocrit 35.3 % (39.0-53.0) Mean Corpuscular Volume 83 fL (79-100) Mean Corpuscular Hemoglobin 27 pg (25-35) Mean Corpuscular Hemoglobin Concent 32 g/dL (31-37) Red Cell Distribution Width 17.8 % (11.5-14.5) Platelet Count 231 x10^3/uL (140-400) Neutrophils (%) (Auto) 77 % (31-73) Lymphocytes (%) (Auto) 12 % (24-48) Monocytes (%) (Auto) 7 % (0-9) Eosinophils (%) (Auto) 3 % (0-3) Basophils (%) (Auto) 2 % (0-3) Neutrophils # (Auto) 4.1 x10^3uL (1.8-7.7) Lymphocytes # (Auto) 0.6 x10^3/uL (1.0-4.8) Monocytes # (Auto) 0.4 x10^3/uL (0.0-1.1) Eosinophils # (Auto) 0.1 x10^3/uL (0.0-0.7) Basophils # (Auto) 0.1 x10^3/uL (0.0-0.2) Prothrombin Time 15.4 SEC (11.7-14.0) Prothromb Time International Ratio 1.3 (0.8-1.1) Sodium Level 138 mmol/L (136-145) Potassium Level 4.6 mmol/L (3.5-5.1) Chloride Level 101 mmol/L (98-107) Carbon Dioxide Level 26 mmol/L (21-32) Anion Gap 11 (6-14) Blood Urea Nitrogen 63 mg/dL (8-26) Creatinine 8.0 mg/dL (0.7-1.3) Estimated GFR (Cockcroft-Gault) 8.6 BUN/Creatinine Ratio 8 (6-20) Glucose Level 159 mg/dL (70-99) Calcium Level 8.9 mg/dL (8.5-10.1) Total Bilirubin 1.0 mg/dL (0.2-1.0) Aspartate Amino Transf (AST/SGOT) 16 U/L (15-37) Alanine Aminotransferase (ALT/SGPT) 11 U/L (16-63) Alkaline Phosphatase 112 U/L (46-116) Troponin I Quantitative 0.112 ng/mL (0.000-0.055) 0.104 ng/mL (0.000-0.055) 0.096 ng/mL (0.000-0.055) NV-Svl-O-Type Natriuretic Peptide > 01574 pg/mL (0-124) Total Protein 7.1 g/dL (6.4-8.2) Albumin 3.2 g/dL (3.4-5.0) Albumin/Globulin Ratio 0.8 (1.0-1.7) Lipase 118 U/L (73-393) Glucose (Fingerstick) 125 mg/dL (70-99) Test 06/01/18 05:05 06/01/18 05:40 Urine Collection Type Unknown Urine Color Yellow Urine Clarity Clear Urine pH 7.0 Urine Specific [place] 1.015 Urine Protein >=300 mg/dL (NEG-TRACE) Urine Glucose (UA) Negative mg/dL (NEG) Urine Ketones (Stick) Negative mg/dL (NEG) Urine Blood Negative (NEG) Urine Nitrite Negative (NEG) Urine Bilirubin Negative (NEG) Urine Urobilinogen Dipstick 1.0 mg/dL (0.2 mg/dL) Urine Leukocyte Esterase Negative (NEG) Urine RBC Occ /HPF (0-2) Urine WBC Occ /HPF (0-4) Urine Squamous Epithelial Cells Few /LPF Urine Bacteria 0 /HPF (0-FEW) Urine Hyaline Casts Few /HPF Urine Mucus Slight /LPF Urine Opiates Screen Pos (NEG) Urine Methadone Screen Neg (NEG) Urine Barbiturates Neg (NEG) Urine Phencyclidine Screen Neg (NEG) Urine Amphetamine/Methamphetamine Neg (NEG) Urine Benzodiazepines Screen Neg (NEG) Urine Cocaine Screen Neg (NEG) Urine Cannabinoids Screen Neg (NEG) Urine Ethyl Alcohol Neg (NEG) White Blood Count 4.6 x10^3/uL (4.0-11.0) Red Blood Count 4.45 x10^6/uL (4.30-5.70) Hemoglobin 11.9 g/dL (13.0-17.5) Hematocrit 36.9 % (39.0-53.0) Mean Corpuscular Volume 83 fL (79-100) Mean Corpuscular Hemoglobin 27 pg (25-35) Mean Corpuscular Hemoglobin Concent 32 g/dL (31-37) Red Cell Distribution Width 18.0 % (11.5-14.5) Platelet Count 259 x10^3/uL (140-400) Neutrophils (%) (Auto) 65 % (31-73) Lymphocytes (%) (Auto) 18 % (24-48) Monocytes (%) (Auto) 10 % (0-9) Eosinophils (%) (Auto) 6 % (0-3) Basophils (%) (Auto) 2 % (0-3) Neutrophils # (Auto) 3.0 x10^3uL (1.8-7.7) Lymphocytes # (Auto) 0.8 x10^3/uL (1.0-4.8) Monocytes # (Auto) 0.5 x10^3/uL (0.0-1.1) Eosinophils # (Auto) 0.3 x10^3/uL (0.0-0.7) Basophils # (Auto) 0.1 x10^3/uL (0.0-0.2) Sodium Level 139 mmol/L (136-145) Potassium Level 4.5 mmol/L (3.5-5.1) Chloride Level 101 mmol/L (98-107) Carbon Dioxide Level 24 mmol/L (21-32) Anion Gap 14 (6-14) Blood Urea Nitrogen 65 mg/dL (8-26) Creatinine 8.4 mg/dL (0.7-1.3) Estimated GFR (Cockcroft-Gault) 8.1 BUN/Creatinine Ratio 8 (6-20) Glucose Level 136 mg/dL (70-99) Calcium Level 8.9 mg/dL (8.5-10.1) Total Bilirubin 0.9 mg/dL (0.2-1.0) Aspartate Amino Transf (AST/SGOT) 10 U/L (15-37) Alanine Aminotransferase (ALT/SGPT) 14 U/L (16-63) Alkaline Phosphatase 102 U/L (46-116) Total Protein 7.1 g/dL (6.4-8.2) Albumin 3.2 g/dL (3.4-5.0) Albumin/Globulin Ratio 0.8 (1.0-1.7) Laboratory Tests Test 05/31/18 14:10 05/31/18 18:30 05/31/18 20:52 05/31/18 21:45 White Blood Count 5.3 x10^3/uL (4.0-11.0) Red Blood Count 4.27 x10^6/uL (4.30-5.70) Hemoglobin 11.4 g/dL (13.0-17.5) Hematocrit 35.3 % (39.0-53.0) Mean Corpuscular Volume 83 fL (79-100) Mean Corpuscular Hemoglobin 27 pg (25-35) Mean Corpuscular Hemoglobin Concent 32 g/dL (31-37) Red Cell Distribution Width 17.8 % (11.5-14.5) Platelet Count 231 x10^3/uL (140-400) Neutrophils (%) (Auto) 77 % (31-73) Lymphocytes (%) (Auto) 12 % (24-48) Monocytes (%) (Auto) 7 % (0-9) Eosinophils (%) (Auto) 3 % (0-3) Basophils (%) (Auto) 2 % (0-3) Neutrophils # (Auto) 4.1 x10^3uL (1.8-7.7) Lymphocytes # (Auto) 0.6 x10^3/uL (1.0-4.8) Monocytes # (Auto) 0.4 x10^3/uL (0.0-1.1) Eosinophils # (Auto) 0.1 x10^3/uL (0.0-0.7) Basophils # (Auto) 0.1 x10^3/uL (0.0-0.2) Prothrombin Time 15.4 SEC (11.7-14.0) Prothromb Time International Ratio 1.3 (0.8-1.1) Sodium Level 138 mmol/L (136-145) Potassium Level 4.6 mmol/L (3.5-5.1) Chloride Level 101 mmol/L (98-107) Carbon Dioxide Level 26 mmol/L (21-32) Anion Gap 11 (6-14) Blood Urea Nitrogen 63 mg/dL (8-26) Creatinine 8.0 mg/dL (0.7-1.3) Estimated GFR (Cockcroft-Gault) 8.6 BUN/Creatinine Ratio 8 (6-20) Glucose Level 159 mg/dL (70-99) Calcium Level 8.9 mg/dL (8.5-10.1) Total Bilirubin 1.0 mg/dL (0.2-1.0) Aspartate Amino Transf (AST/SGOT) 16 U/L (15-37) Alanine Aminotransferase (ALT/SGPT) 11 U/L (16-63) Alkaline Phosphatase 112 U/L (46-116) Troponin I Quantitative 0.112 ng/mL (0.000-0.055) 0.104 ng/mL (0.000-0.055) 0.096 ng/mL (0.000-0.055) AG-Wkj-Y-Type Natriuretic Peptide > 68123 pg/mL (0-124) Total Protein 7.1 g/dL (6.4-8.2) Albumin 3.2 g/dL (3.4-5.0) Albumin/Globulin Ratio 0.8 (1.0-1.7) Lipase 118 U/L (73-393) Glucose (Fingerstick) 125 mg/dL (70-99) Test 06/01/18 05:05 06/01/18 05:40 Urine Collection Type Unknown Urine Color Yellow Urine Clarity Clear Urine pH 7.0 Urine Specific [place] 1.015 Urine Protein >=300 mg/dL (NEG-TRACE) Urine Glucose (UA) Negative mg/dL (NEG) Urine Ketones (Stick) Negative mg/dL (NEG) Urine Blood Negative (NEG) Urine Nitrite Negative (NEG) Urine Bilirubin Negative (NEG) Urine Urobilinogen Dipstick 1.0 mg/dL (0.2 mg/dL) Urine Leukocyte Esterase Negative (NEG) Urine RBC Occ /HPF (0-2) Urine WBC Occ /HPF (0-4) Urine Squamous Epithelial Cells Few /LPF Urine Bacteria 0 /HPF (0-FEW) Urine Hyaline Casts Few /HPF Urine Mucus Slight /LPF Urine Opiates Screen Pos (NEG) Urine Methadone Screen Neg (NEG) Urine Barbiturates Neg (NEG) Urine Phencyclidine Screen Neg (NEG) Urine Amphetamine/Methamphetamine Neg (NEG) Urine Benzodiazepines Screen Neg (NEG) Urine Cocaine Screen Neg (NEG) Urine Cannabinoids Screen Neg (NEG) Urine Ethyl Alcohol Neg (NEG) White Blood Count 4.6 x10^3/uL (4.0-11.0) Red Blood Count 4.45 x10^6/uL (4.30-5.70) Hemoglobin 11.9 g/dL (13.0-17.5) Hematocrit 36.9 % (39.0-53.0) Mean Corpuscular Volume 83 fL (79-100) Mean Corpuscular Hemoglobin 27 pg (25-35) Mean Corpuscular Hemoglobin Concent 32 g/dL (31-37) Red Cell Distribution Width 18.0 % (11.5-14.5) Platelet Count 259 x10^3/uL (140-400) Neutrophils (%) (Auto) 65 % (31-73) Lymphocytes (%) (Auto) 18 % (24-48) Monocytes (%) (Auto) 10 % (0-9) Eosinophils (%) (Auto) 6 % (0-3) Basophils (%) (Auto) 2 % (0-3) Neutrophils # (Auto) 3.0 x10^3uL (1.8-7.7) Lymphocytes # (Auto) 0.8 x10^3/uL (1.0-4.8) Monocytes # (Auto) 0.5 x10^3/uL (0.0-1.1) Eosinophils # (Auto) 0.3 x10^3/uL (0.0-0.7) Basophils # (Auto) 0.1 x10^3/uL (0.0-0.2) Sodium Level 139 mmol/L (136-145) Potassium Level 4.5 mmol/L (3.5-5.1) Chloride Level 101 mmol/L (98-107) Carbon Dioxide Level 24 mmol/L (21-32) Anion Gap 14 (6-14) Blood Urea Nitrogen 65 mg/dL (8-26) Creatinine 8.4 mg/dL (0.7-1.3) Estimated GFR (Cockcroft-Gault) 8.1 BUN/Creatinine Ratio 8 (6-20) Glucose Level 136 mg/dL (70-99) Calcium Level 8.9 mg/dL (8.5-10.1) Total Bilirubin 0.9 mg/dL (0.2-1.0) Aspartate Amino Transf (AST/SGOT) 10 U/L (15-37) Alanine Aminotransferase (ALT/SGPT) 14 U/L (16-63) Alkaline Phosphatase 102 U/L (46-116) Total Protein 7.1 g/dL (6.4-8.2) Albumin 3.2 g/dL (3.4-5.0) Albumin/Globulin Ratio 0.8 (1.0-1.7) Review All relevant outside records, renal labs, imaging studies, telemetry/EKG's were reviewed. Images Images CT scan abdomen-- Urinary bladder is mildly distended. No evidence of intrarenal collecting system calculi identified in the bilateral kidneys. The bilateral kidneys appear small. Moderate aortic atherosclerosis. Mild degenerative changes lumbar spine. Large ascites. Small umbilical hernia containing ascites. 4 mm nodule identified in the right middle lobe of the lung. Follow-up per Fleischner Society guidelines with a follow-up CT in 6-12 months. MAGDIEL VOGEL MD Jun 01, 2018 13:46
[2018-06-01 15:00] VITALS: BP 161/102
[2018-06-01] MEDS: ALPRAZolam 0.25 MG TABLET PO PRN (16:27)
[2018-06-01] MEDS: CALCIUM CARB/VIT D3 500/200 TABLET. PO SCH (16:27)
--- NOTE | 2018-06-01 16:27 | PDOC ---
PROGRESS NOTES Chief Complaint Chief Complaint New-onset ascites etiology most likely related to hypoalbuminemia. Liver disease work up so far negative. Bacterial conjunctivitis End-stage renal disease on hemodialysis Abdominal pain secondary to the ascites, very low suspicion for SBP or other surgical process given the benign nature of his physical exam Essential hypertension currently fairly controlled History of GERD Plan: Consult nephrology for dialysis management We'll consult interventional radiology for paracentesis Start ciprofloxacin ophthalmic for conjunctivitis Resume home meds Reassess in the a.m., further recommendations based on clinical course DVT prophylaxis with heparin History of Present Illness History of Present Illness Patient receiving dialysis continues to have discomfort due to the ascites, patient denies fever or presents peritoneal sings, work of breathing is normal. Vitals Vitals Vital Signs Date Time Temp Pulse Resp B/P (MAP) Pulse Ox O2 Delivery O2 Flow Rate FiO2 06/01/18 15:25 12 94 Room Air 06/01/18 15:00 99.0 72 161/102 (121) 99.0 Physical Exam Lungs: Clear, Other Labs LABS Laboratory Tests Test 05/31/18 18:30 05/31/18 20:52 05/31/18 21:45 06/01/18 05:05 Troponin I Quantitative 0.104 ng/mL (0.000-0.055) 0.096 ng/mL (0.000-0.055) Glucose (Fingerstick) 125 mg/dL (70-99) Urine Collection Type Unknown Urine Color Yellow Urine Clarity Clear Urine pH 7.0 Urine Specific [place] 1.015 Urine Protein >=300 mg/dL (NEG-TRACE) Urine Glucose (UA) Negative mg/dL (NEG) Urine Ketones (Stick) Negative mg/dL (NEG) Urine Blood Negative (NEG) Urine Nitrite Negative (NEG) Urine Bilirubin Negative (NEG) Urine Urobilinogen Dipstick 1.0 mg/dL (0.2 mg/dL) Urine Leukocyte Esterase Negative (NEG) Urine RBC Occ /HPF (0-2) Urine WBC Occ /HPF (0-4) Urine Squamous Epithelial Cells Few /LPF Urine Bacteria 0 /HPF (0-FEW) Urine Hyaline Casts Few /HPF Urine Mucus Slight /LPF Urine Opiates Screen Pos (NEG) Urine Methadone Screen Neg (NEG) Urine Barbiturates Neg (NEG) Urine Phencyclidine Screen Neg (NEG) Urine Amphetamine/Methamphetamine Neg (NEG) Urine Benzodiazepines Screen Neg (NEG) Urine Cocaine Screen Neg (NEG) Urine Cannabinoids Screen Neg (NEG) Urine Ethyl Alcohol Neg (NEG) Test 06/01/18 05:40 White Blood Count 4.6 x10^3/uL (4.0-11.0) Red Blood Count 4.45 x10^6/uL (4.30-5.70) Hemoglobin 11.9 g/dL (13.0-17.5) Hematocrit 36.9 % (39.0-53.0) Mean Corpuscular Volume 83 fL (79-100) Mean Corpuscular Hemoglobin 27 pg (25-35) Mean Corpuscular Hemoglobin Concent 32 g/dL (31-37) Red Cell Distribution Width 18.0 % (11.5-14.5) Platelet Count 259 x10^3/uL (140-400) Neutrophils (%) (Auto) 65 % (31-73) Lymphocytes (%) (Auto) 18 % (24-48) Monocytes (%) (Auto) 10 % (0-9) Eosinophils (%) (Auto) 6 % (0-3) Basophils (%) (Auto) 2 % (0-3) Neutrophils # (Auto) 3.0 x10^3uL (1.8-7.7) Lymphocytes # (Auto) 0.8 x10^3/uL (1.0-4.8) Monocytes # (Auto) 0.5 x10^3/uL (0.0-1.1) Eosinophils # (Auto) 0.3 x10^3/uL (0.0-0.7) Basophils # (Auto) 0.1 x10^3/uL (0.0-0.2) Sodium Level 139 mmol/L (136-145) Potassium Level 4.5 mmol/L (3.5-5.1) Chloride Level 101 mmol/L (98-107) Carbon Dioxide Level 24 mmol/L (21-32) Anion Gap 14 (6-14) Blood Urea Nitrogen 65 mg/dL (8-26) Creatinine 8.4 mg/dL (0.7-1.3) Estimated GFR (Cockcroft-Gault) 8.1 BUN/Creatinine Ratio 8 (6-20) Glucose Level 136 mg/dL (70-99) Calcium Level 8.9 mg/dL (8.5-10.1) Total Bilirubin 0.9 mg/dL (0.2-1.0) Aspartate Amino Transf (AST/SGOT) 10 U/L (15-37) Alanine Aminotransferase (ALT/SGPT) 14 U/L (16-63) Alkaline Phosphatase 102 U/L (46-116) Total Protein 7.1 g/dL (6.4-8.2) Albumin 3.2 g/dL (3.4-5.0) Albumin/Globulin Ratio 0.8 (1.0-1.7) Review of Systems Review of Systems positive as per HPI otherwise 14 point ros negative Assessment and Plan Assessmemt and Plan Problems Medical Problems: (1) Dialysis patient Status: Acute Comment Review of Relevant I have reviewed the following items benjamin (where applicable) has been applied. Labs Laboratory Tests Test 05/31/18 14:10 05/31/18 18:30 05/31/18 20:52 05/31/18 21:45 White Blood Count 5.3 x10^3/uL (4.0-11.0) Red Blood Count 4.27 x10^6/uL (4.30-5.70) Hemoglobin 11.4 g/dL (13.0-17.5) Hematocrit 35.3 % (39.0-53.0) Mean Corpuscular Volume 83 fL (79-100) Mean Corpuscular Hemoglobin 27 pg (25-35) Mean Corpuscular Hemoglobin Concent 32 g/dL (31-37) Red Cell Distribution Width 17.8 % (11.5-14.5) Platelet Count 231 x10^3/uL (140-400) Neutrophils (%) (Auto) 77 % (31-73) Lymphocytes (%) (Auto) 12 % (24-48) Monocytes (%) (Auto) 7 % (0-9) Eosinophils (%) (Auto) 3 % (0-3) Basophils (%) (Auto) 2 % (0-3) Neutrophils # (Auto) 4.1 x10^3uL (1.8-7.7) Lymphocytes # (Auto) 0.6 x10^3/uL (1.0-4.8) Monocytes # (Auto) 0.4 x10^3/uL (0.0-1.1) Eosinophils # (Auto) 0.1 x10^3/uL (0.0-0.7) Basophils # (Auto) 0.1 x10^3/uL (0.0-0.2) Prothrombin Time 15.4 SEC (11.7-14.0) Prothromb Time International Ratio 1.3 (0.8-1.1) Sodium Level 138 mmol/L (136-145) Potassium Level 4.6 mmol/L (3.5-5.1) Chloride Level 101 mmol/L (98-107) Carbon Dioxide Level 26 mmol/L (21-32) Anion Gap 11 (6-14) Blood Urea Nitrogen 63 mg/dL (8-26) Creatinine 8.0 mg/dL (0.7-1.3) Estimated GFR (Cockcroft-Gault) 8.6 BUN/Creatinine Ratio 8 (6-20) Glucose Level 159 mg/dL (70-99) Calcium Level 8.9 mg/dL (8.5-10.1) Total Bilirubin 1.0 mg/dL (0.2-1.0) Aspartate Amino Transf (AST/SGOT) 16 U/L (15-37) Alanine Aminotransferase (ALT/SGPT) 11 U/L (16-63) Alkaline Phosphatase 112 U/L (46-116) Troponin I Quantitative 0.112 ng/mL (0.000-0.055) 0.104 ng/mL (0.000-0.055) 0.096 ng/mL (0.000-0.055) RU-Yhs-U-Type Natriuretic Peptide > 61070 pg/mL (0-124) Total Protein 7.1 g/dL (6.4-8.2) Albumin 3.2 g/dL (3.4-5.0) Albumin/Globulin Ratio 0.8 (1.0-1.7) Lipase 118 U/L (73-393) Glucose (Fingerstick) 125 mg/dL (70-99) Test 06/01/18 05:05 06/01/18 05:40 Urine Collection Type Unknown Urine Color Yellow Urine Clarity Clear Urine pH 7.0 Urine Specific [place] 1.015 Urine Protein >=300 mg/dL (NEG-TRACE) Urine Glucose (UA) Negative mg/dL (NEG) Urine Ketones (Stick) Negative mg/dL (NEG) Urine Blood Negative (NEG) Urine Nitrite Negative (NEG) Urine Bilirubin Negative (NEG) Urine Urobilinogen Dipstick 1.0 mg/dL (0.2 mg/dL) Urine Leukocyte Esterase Negative (NEG) Urine RBC Occ /HPF (0-2) Urine WBC Occ /HPF (0-4) Urine Squamous Epithelial Cells Few /LPF Urine Bacteria 0 /HPF (0-FEW) Urine Hyaline Casts Few /HPF Urine Mucus Slight /LPF Urine Opiates Screen Pos (NEG) Urine Methadone Screen Neg (NEG) Urine Barbiturates Neg (NEG) Urine Phencyclidine Screen Neg (NEG) Urine Amphetamine/Methamphetamine Neg (NEG) Urine Benzodiazepines Screen Neg (NEG) Urine Cocaine Screen Neg (NEG) Urine Cannabinoids Screen Neg (NEG) Urine Ethyl Alcohol Neg (NEG) White Blood Count 4.6 x10^3/uL (4.0-11.0) Red Blood Count 4.45 x10^6/uL (4.30-5.70) Hemoglobin 11.9 g/dL (13.0-17.5) Hematocrit 36.9 % (39.0-53.0) Mean Corpuscular Volume 83 fL (79-100) Mean Corpuscular Hemoglobin 27 pg (25-35) Mean Corpuscular Hemoglobin Concent 32 g/dL (31-37) Red Cell Distribution Width 18.0 % (11.5-14.5) Platelet Count 259 x10^3/uL (140-400) Neutrophils (%) (Auto) 65 % (31-73) Lymphocytes (%) (Auto) 18 % (24-48) Monocytes (%) (Auto) 10 % (0-9) Eosinophils (%) (Auto) 6 % (0-3) Basophils (%) (Auto) 2 % (0-3) Neutrophils # (Auto) 3.0 x10^3uL (1.8-7.7) Lymphocytes # (Auto) 0.8 x10^3/uL (1.0-4.8) Monocytes # (Auto) 0.5 x10^3/uL (0.0-1.1) Eosinophils # (Auto) 0.3 x10^3/uL (0.0-0.7) Basophils # (Auto) 0.1 x10^3/uL (0.0-0.2) Sodium Level 139 mmol/L (136-145) Potassium Level 4.5 mmol/L (3.5-5.1) Chloride Level 101 mmol/L (98-107) Carbon Dioxide Level 24 mmol/L (21-32) Anion Gap 14 (6-14) Blood Urea Nitrogen 65 mg/dL (8-26) Creatinine 8.4 mg/dL (0.7-1.3) Estimated GFR (Cockcroft-Gault) 8.1 BUN/Creatinine Ratio 8 (6-20) Glucose Level 136 mg/dL (70-99) Calcium Level 8.9 mg/dL (8.5-10.1) Total Bilirubin 0.9 mg/dL (0.2-1.0) Aspartate Amino Transf (AST/SGOT) 10 U/L (15-37) Alanine Aminotransferase (ALT/SGPT) 14 U/L (16-63) Alkaline Phosphatase 102 U/L (46-116) Total Protein 7.1 g/dL (6.4-8.2) Albumin 3.2 g/dL (3.4-5.0) Albumin/Globulin Ratio 0.8 (1.0-1.7) Laboratory Tests Test 05/31/18 18:30 05/31/18 20:52 05/31/18 21:45 06/01/18 05:05 Troponin I Quantitative 0.104 ng/mL (0.000-0.055) 0.096 ng/mL (0.000-0.055) Glucose (Fingerstick) 125 mg/dL (70-99) Urine Collection Type Unknown Urine Color Yellow Urine Clarity Clear Urine pH 7.0 Urine Specific [place] 1.015 Urine Protein >=300 mg/dL (NEG-TRACE) Urine Glucose (UA) Negative mg/dL (NEG) Urine Ketones (Stick) Negative mg/dL (NEG) Urine Blood Negative (NEG) Urine Nitrite Negative (NEG) Urine Bilirubin Negative (NEG) Urine Urobilinogen Dipstick 1.0 mg/dL (0.2 mg/dL) Urine Leukocyte Esterase Negative (NEG) Urine RBC Occ /HPF (0-2) Urine WBC Occ /HPF (0-4) Urine Squamous Epithelial Cells Few /LPF Urine Bacteria 0 /HPF (0-FEW) Urine Hyaline Casts Few /HPF Urine Mucus Slight /LPF Urine Opiates Screen Pos (NEG) Urine Methadone Screen Neg (NEG) Urine Barbiturates Neg (NEG) Urine Phencyclidine Screen Neg (NEG) Urine Amphetamine/Methamphetamine Neg (NEG) Urine Benzodiazepines Screen Neg (NEG) Urine Cocaine Screen Neg (NEG) Urine Cannabinoids Screen Neg (NEG) Urine Ethyl Alcohol Neg (NEG) Test 06/01/18 05:40 White Blood Count 4.6 x10^3/uL (4.0-11.0) Red Blood Count 4.45 x10^6/uL (4.30-5.70) Hemoglobin 11.9 g/dL (13.0-17.5) Hematocrit 36.9 % (39.0-53.0) Mean Corpuscular Volume 83 fL (79-100) Mean Corpuscular Hemoglobin 27 pg (25-35) Mean Corpuscular Hemoglobin Concent 32 g/dL (31-37) Red Cell Distribution Width 18.0 % (11.5-14.5) Platelet Count 259 x10^3/uL (140-400) Neutrophils (%) (Auto) 65 % (31-73) Lymphocytes (%) (Auto) 18 % (24-48) Monocytes (%) (Auto) 10 % (0-9) Eosinophils (%) (Auto) 6 % (0-3) Basophils (%) (Auto) 2 % (0-3) Neutrophils # (Auto) 3.0 x10^3uL (1.8-7.7) Lymphocytes # (Auto) 0.8 x10^3/uL (1.0-4.8) Monocytes # (Auto) 0.5 x10^3/uL (0.0-1.1) Eosinophils # (Auto) 0.3 x10^3/uL (0.0-0.7) Basophils # (Auto) 0.1 x10^3/uL (0.0-0.2) Sodium Level 139 mmol/L (136-145) Potassium Level 4.5 mmol/L (3.5-5.1) Chloride Level 101 mmol/L (98-107) Carbon Dioxide Level 24 mmol/L (21-32) Anion Gap 14 (6-14) Blood Urea Nitrogen 65 mg/dL (8-26) Creatinine 8.4 mg/dL (0.7-1.3) Estimated GFR (Cockcroft-Gault) 8.1 BUN/Creatinine Ratio 8 (6-20) Glucose Level 136 mg/dL (70-99) Calcium Level 8.9 mg/dL (8.5-10.1) Total Bilirubin 0.9 mg/dL (0.2-1.0) Aspartate Amino Transf (AST/SGOT) 10 U/L (15-37) Alanine Aminotransferase (ALT/SGPT) 14 U/L (16-63) Alkaline Phosphatase 102 U/L (46-116) Total Protein 7.1 g/dL (6.4-8.2) Albumin 3.2 g/dL (3.4-5.0) Albumin/Globulin Ratio 0.8 (1.0-1.7) Medications Current Medications Prochlorperazine Edisylate (Compazine) 5 mg 1X ONCE IV Last administered on at 14:31; Start 05/31/18 at 14:00; Stop 05/31/18 at 14:06; Status DC Morphine Sulfate (Morphine Sulfate) 4 mg 1X ONCE IV Last administered on at 14:30; Start 05/31/18 at 14:00; Stop 05/31/18 at 14:06; Status DC Aspirin (Children'S Aspirin) 324 mg 1X ONCE PO Last administered on 05/31/18at 15:30; Start 05/31/18 at 15:30; Stop 05/31/18 at 15:31; Status DC Ondansetron HCl (Zofran) 4 mg PRN Q8HRS PRN IV NAUSEA/VOMITING; Start 05/31/18 at 15:45; Stop 06/01/18 at 15:44; Status DC Morphine Sulfate (Morphine Sulfate) 2 mg PRN Q2HR PRN IV PAIN; Start 05/31/18 at 15:45; Stop 06/01/18 at 15:44; Status DC Acetaminophen (Tylenol) 650 mg PRN Q4HRS PRN PO FEVER; Start 05/31/18 at 15:45 ; Stop 06/01/18 at 15:44; Status DC Ciprofloxacin (Ciloxan Ophth) 1 drop QID OU Last administered on 06/01/18at 13: 51; Start 05/31/18 at 18:00 Alprazolam (Xanax) 0.25 mg PRN BID PRN PO ANXIETY / AGITATION; Start 05/31/18 at 17:30 Amlodipine Besylate (Norvasc) 10 mg DAILY PO Last administered on 06/01/18 13: 44; Start 06/01/18 at 09:00 Aspirin (Ecotrin) 325 mg DAILYWBKFT PO Last administered on 06/01/18at 08:00; Start 06/01/18 at 08:00 Calcium/Vitamin D (Oscal D 500mg/ 200uts) 1 tab BIDWMEALS PO ; Start 06/01/18 at 17:00 Carvedilol (Coreg) 12.5 mg BIDWMEALS PO Last administered on 06/01/18 13:47; Start 06/01/18 at 08:00 Clonidine HCl (Catapres) 0.1 mg TID PO Last administered on 06/01/18 14:00; Start 05/31/18 at 21:00 Ferrous Sulfate (Feosol) 325 mg BIDWMEALS PO Last administered on 06/01/18 13: 44; Start 06/01/18 at 08:00 Furosemide (Lasix) 40 mg BID92 PO Last administered on 06/01/18 13:46; Start 06/01/18 at 09:00 Acetaminophen/ Hydrocodone Bitart (Lortab 5/325) 1 tab PRN Q6HRS PRN PO SEVERE PAIN Last administered on 06/01/18at 15:25; Start 05/31/18 at 17:30 Hydralazine HCl (Apresoline) 50 mg TID PO Last administered on 06/01/18 13:43 ; Start 05/31/18 at 21:00 Morphine Sulfate (Morphine Sulfate) 2 mg PRN Q2HR PRN IV PAIN; Start 05/31/18 at 17:45 Hydralazine HCl (Apresoline Inj) 25 mg PRN Q6HRS PRN IVP ELEVATED BP, SEE COMMENTS Last administered on 05/31/18at 23:51; Start 05/31/18 at 23:30 Lidocaine HCl (Xylocaine-Mpf 1% 2ml Vial) 2 ml STK-MED ONCE .ROUTE ; Start 06/01 at 08:01; Stop 06/01/18 at 08:02; Status DC Sodium Chloride 1,000 ml @ 1,000 mls/hr Q1H PRN IV hypotension; Start 06/01/18 at 08:00; Stop 06/01/18 at 13:59; Status DC Albumin Human 200 ml @ 200 mls/hr 1X PRN PRN IV Hypotension; Start 06/01/18 at 08:00; Stop 06/01/18 at 13:59; Status DC Sodium Chloride 1,000 ml @ 400 mls/hr Q2H30M PRN IV PATENCY; Start 06/01/18 at 08:00; Stop 06/01/18 at 19:59 Info (PHARMACY MONITORING -- do not chart) 1 each PRN DAILY PRN MC SEE COMMENTS ; Start 06/01/18 at 08:30; Status UNV Info (PHARMACY MONITORING -- do not chart) 1 each PRN DAILY PRN MC SEE COMMENTS ; Start 06/01/18 at 08:30 Lidocaine HCl (Xylocaine-Mpf 1% 2ml Vial) 2 ml 1X ONCE INJ ; Start 06/01/18 at 08:00; Stop 06/01/18 at 08:28; Status DC Active Scripts Active Hydrocodone-Apap 5-325 (Hydrocodone Bit/Acetaminophen) 1 Each Tablet 1 Tab PO PRN Q6HRS PRN Furosemide 40 Mg Tablet 40 Mg PO BID92 30 Days Oyster Shell 500 Mg + Vit D Tb (Calcium Carbonate/Vitamin D3) 1 Each Tablet 1 Tab PO BIDWMEALS 30 Days Alprazolam 0.25 Mg Tablet 0.25 Mg PO PRN BID PRN 10 Days Feosol (Ferrous Sulfate) 325 Mg Tablet 325 Mg PO BIDWMEALS 30 Days Aspirin Ec (Aspirin) 325 Mg Tablet.dr 325 Mg PO DAILYWBKFT 30 Days Reported Amlodipine Besylate 10 Mg Tablet 10 Mg PO DAILY Carvedilol (Carvedilol) 12.5 Mg Tablet 12.5 Mg PO BIDWMEALS Hydralazine Hcl 50 Mg Tablet 1 Tab PO TID Clonidine Hcl 0.1 Mg Tablet 0.1 Mg PO TID Vitals/I & O Vital Sign - Last 24 Hours 05/31/18 05/31/18 05/31/18 05/31/18 16:30 19:20 19:49 20:25 Temp 97.7 97.7 Pulse 64 63 63 Resp 18 B/P (MAP) 179/115 (136) 160/103 (122) 160/103 Pulse Ox 92 93 O2 Delivery Room Air Room Air Room Air 05/31/18 05/31/18 05/31/18 06/01/18 20:25 23:20 23:51 02:55 Temp 97.6 97.7 97.6 97.7 Pulse 63 57 57 65 Resp 18 18 B/P (MAP) 160/103 150/106 (121) 150/106 155/106 (122) Pulse Ox 93 95 O2 Delivery Room Air Room Air 06/01/18 06/01/18 06/01/18 06/01/18 04:34 05:35 07:00 08:00 Temp 97.8 97.8 Pulse 61 61 Resp 18 B/P (MAP) 158/105 (122) 158/105 Pulse Ox 93 O2 Delivery Room Air Room Air Room Air 06/01/18 06/01/18 06/01/18 06/01/18 08:00 13:43 13:44 13:44 Pulse 61 61 61 B/P (MAP) 158/105 158/105 158/105 O2 Delivery Room Air 06/01/18 06/01/18 06/01/18 06/01/18 13:47 14:00 14:00 15:00 Temp 99.0 99.0 Pulse 61 61 61 72 Resp 18 B/P (MAP) 158/105 158/105 158/105 161/102 (121) Pulse Ox 94 O2 Delivery Room Air 06/01/18 15:25 Resp 12 Pulse Ox 94 O2 Delivery Room Air Intake and Output 05/31/18 05/31/18 06/01/18 15:00 23:00 07:00 Intake Total 300 ml Output Total 400 ml Balance -100 ml ZAK COTTO MD Jun 01, 2018 16:27
[2018-06-01 19:44] VITALS: BP 105/59
[2018-06-01 23:36] VITALS: BP 129/88
[2018-06-02] VITALS (9 sets, daily range): BP systolic 98–159; BP diastolic 59–100
[2018-06-02] MEDS: CARVEDILOL 12.5 MG TABLET. PO SCH (08:54)
[2018-06-02] MEDS: amLODIPine BESYLATE 10 MG TABLET PO SCH (08:54)
[2018-06-02] MEDS: FUROSEMIDE 40 MG TABLET. PO SCH ×2 (08:54→14:07)
[2018-06-02] MEDS: cloNIDine HCL 0.1 MG TABLET PO SCH ×3 (08:55→20:29)
[2018-06-02] MEDS: ASPIRIN ENTERIC COATED 325 MG TABLET.DR. PO SCH (08:55)
[2018-06-02] MEDS: FERROUS SULFATE 325 MG TABLET. PO SCH ×2 (08:55→17:28)
[2018-06-02] MEDS: CALCIUM CARB/VIT D3 500/200 TABLET. PO SCH ×2 (08:55→17:28)
[2018-06-02] MEDS: ALPRAZolam 0.25 MG TABLET PO PRN (08:58)
[2018-06-02] MEDS: CIPROFLOXACIN 0.3% OPHTH SOLUTION 5ML BOTTLE. OU SCH ×4 (08:58→20:29)
[2018-06-02] MEDS: HYDROcodone/APAP 5/325MG 1 TAB TABLET PO PRN ×2 (08:59→17:28)
[2018-06-02] MEDS ORDERED: ALBUMIN HUMAN 25% 100 ML IV ONE ×2 (10:51→11:00)
--- NOTE | 2018-06-02 11:59 | PDOC ---
Subjective: Subjective: Feels better after paracentesis. Says suggestion was made for PleurX placement. Objective: Vital Signs: Vital Signs Date Time Temp Pulse Resp B/P (MAP) Pulse Ox O2 Delivery O2 Flow Rate FiO2 06/02/18 11:10 53 17 103/71 (82) 93 Room Air 06/02/18 07:00 98.3 98.3 PE: GEN: NAD LUNGS: CTAB HEART: RRR ABD: much improved - non-distended, non-tender, +umbilical hernia NEURO/PSYCH: A & O 3 A/P: ESRD on HD - past discussion of possible PD Recurrent ascites - s/p paracentesis x 2 now, on Lasix BID -- Improved after paracentesis. Not sure if further workup desired at this point. NEGAR CLEMONS Jun 02, 2018 11:59
--- NOTE | 2018-06-02 12:25 | RAD ---
Procedure: Ultrasound guided paracentesis Clinical Indication: 53-year-old with recurrent abdominal ascites Sedation: Local anesthesia only Antibiotics: None Fluoro Time: None Contrast: Not applicable Sterility: The procedure was performed in its entirety using appropriate elements of sterile technique. Consent: The procedure was explained in its entirety to the patient or the patients designated territory service representative by a member of the treatment team, including a discussion of the risks, benefits and commonly accepted alternatives to the procedure, as well as the expected consequences of no therapy whatsoever. Discussion of the risks included, but was not limited to, those that are most frequent and those that are rare but possibly severe or life-threatening, as well as the possibility of unforeseen complications. Technique and Findings: Following informed consent, the patient was prepped and draped in the usual sterile fashion. Ultrasound interrogation of the abdomen revealed abdominal ascites. A hard copy ultrasound image was recorded. 1% Lidocaine was used to achieve local anesthesia over the area of interest, and a 6 [place] [id number] catheter was advanced into the peritoneal cavity under ultrasound guidance. 6260 cc of thin yellow ascites was then withdrawn. The catheter was removed and hemostasis was achieved with manual compression. Complications: No immediate Impression: 1. Ultrasound-guided paracentesis as described
--- NOTE | 2018-06-02 12:58 | PDOC ---
SUBJECTIVE ROS No complaints OBJECTIVE Vital Signs Vital Signs Date Time Temp Pulse Resp B/P (MAP) Pulse Ox O2 Delivery O2 Flow Rate FiO2 06/02/18 11:10 53 17 103/71 (82) 93 Room Air 06/02/18 07:00 98.3 98.3 I & 0 Intake and Output 06/02/18 07:00 Intake Total 670 ml Output Total 350 ml Balance 320 ml Intake Oral 670 ml Output Urine Total 350 ml PHYSICAL EXAM Physical Exam GEN.: NAD HEENT: OM moist NECK: Supple. LUNGS: Clear to auscultation. HEART: RRR, S1, S2 present. ABDOMEN: Soft, nontender. EXTREMITIES: No edema NEUROLOGIC: Grossly normal SKIN: No rash No gonzalez DIAGNOSIS/ASSESSMENT Assessment & Plan ESRD- On HD TTS as OP HD today as missed Wednesday Was Dialyzed yesterday Today is his scheduled HD day, Pt refusing reports he was cramping and will now do HD on Wednesday as per his schedule Consult Dr. Jones for PD cath placement ( as per Dr. Bhat) Ascites - s/p paracentesis - 6260 cc removed Recurrent ascites - s/p paracentesis x 2 now No further sigala recommended by GI Anemia- Hgb stable No Indication for AMAN HTN- Continue Antihypertensives Dw Pt and RN COMMENT/RELEVANT DATA Meds Current Medications Medications (Trade) Dose Ordered Sig/Sascha Start Time Stop Time Status Last Admin Dose Admin Acetaminophen (Tylenol) 650 mg PRN Q4HRS PRN 05/31/18 15:45 06/01/18 15:44 DC Acetaminophen/ Hydrocodone Bitart (Lortab 5/325) 1 tab PRN Q6HRS PRN 05/31/18 17:30 06/02/18 08:59 1 TAB Albumin Human 100 ml @ 100 mls/hr 1X ONCE 06/02/18 11:00 06/02/18 11:59 DC 06/02/18 10:59 100 MLS/HR Alprazolam (Xanax) 0.25 mg PRN BID PRN 05/31/18 17:30 06/02/18 08:58 0.25 MG Amlodipine Besylate (Norvasc) 10 mg DAILY 06/01/18 09:00 06/02/18 08:54 10 MG Aspirin (Children'S Aspirin) 324 mg 1X ONCE 05/31/18 15:30 05/31/18 15:31 DC 05/31/18 15:30 324 MG Aspirin (Ecotrin) 325 mg DAILYWBKFT 06/01/18 08:00 06/02/18 08:55 325 MG Calcium/Vitamin D (Oscal D 500mg/ 200uts) 1 tab BIDWMEALS 06/01/18 17:00 06/02/18 08:55 1 TAB Carvedilol (Coreg) 12.5 mg BIDWMEALS 06/01/18 08:00 06/02/18 08:54 12.5 MG Ciprofloxacin (Ciloxan Ophth) 1 drop QID 05/31/18 18:00 06/02/18 08:58 1 DROP Clonidine HCl (Catapres) 0.1 mg TID 05/31/18 21:00 06/02/18 08:55 0.1 MG Ferrous Sulfate (Feosol) 325 mg BIDWMEALS 06/01/18 08:00 06/02/18 08:55 325 MG Furosemide (Lasix) 40 mg BID92 06/01/18 09:00 06/02/18 08:54 40 MG Hydralazine HCl (Apresoline Inj) 25 mg PRN Q6HRS PRN 05/31/18 23:30 05/31/18 23:51 25 MG Hydralazine HCl (Apresoline) 50 mg TID 05/31/18 21:00 06/02/18 08:55 50 MG Info (PHARMACY MONITORING -- do not chart) 1 each PRN DAILY PRN 06/01/18 08:30 Lidocaine HCl (Xylocaine-Mpf 1% 2ml Vial) 2 ml 1X ONCE 06/01/18 08:00 06/01/18 08:28 DC Morphine Sulfate (Morphine Sulfate) 2 mg PRN Q2HR PRN 05/31/18 17:45 Ondansetron HCl (Zofran) 4 mg PRN Q8HRS PRN 05/31/18 15:45 06/01/18 15:44 DC Prochlorperazine Edisylate (Compazine) 5 mg 1X ONCE 05/31/18 14:00 05/31/18 14:06 DC 05/31/18 14:31 5 MG Sodium Chloride 1,000 ml @ 400 mls/hr Q2H30M PRN 06/01/18 08:00 06/01/18 19:59 DC Results All relevant outside records, renal labs, imaging studies, telemetry/EKG's were reviewed. MAGDIEL VOGEL MD Jun 02, 2018 12:58
--- NOTE | 2018-06-02 13:46 | NUR ---
SS following for discharge planning. SS reviewed pt's chart. Pt is from home and currently on room air. Pt has a Wednesday, , Wednesday dialysis chair time in the community. No discharge needs noted at this time. SS will continue to follow for pending discharge needs.
--- NOTE | 2018-06-02 19:51 | PDOC ---
PROGRESS NOTES Chief Complaint Chief Complaint New-onset ascites etiology most likely related to hypoalbuminemia. Liver disease work up so far negative. Bacterial conjunctivitis End-stage renal disease on hemodialysis Abdominal pain secondary to the ascites, very low suspicion for SBP or other surgical process given the benign nature of his physical exam Essential hypertension currently fairly controlled History of GERD Plan: nephrology for dialysis management paracentesis today ciprofloxacin ophthalmic for conjunctivitis Resume home meds Reassess in the a.m., further recommendations based on clinical course DVT prophylaxis with heparin History of Present Illness History of Present Illness Patient awaiting for paracentesis today no new complaints voiced by the patient CONCERNS address to the best of my abilities Vitals Vitals Vital Signs Date Time Temp Pulse Resp B/P (MAP) Pulse Ox O2 Delivery O2 Flow Rate FiO2 06/02/18 19:40 97.5 57 17 118/84 (95) 98 Room Air 97.5 Physical Exam Physical Exam Gen.: chronically ill appearing in no apparent distress Head: Normal shape atraumatic Eyes: Pupils equal reactive to light and accommodation, normal conjunctivae and lids Ears: Normal shape Nose: Normal shape no trauma Mouth: No exudates of the back of throat no thrush no lesions Neck: Supple no JVD no carotid bruit or lymphadenopathy no thyromegaly Chest: Lungs clear to auscultation with good inspiratory effort no crackles rales or rhonchi Cardiovascular: S1-S2 regular rhythm sytolic murmur gallops or rubs Abdomen: Bowel sounds present soft nontender no hepatosplenomegaly appreciated sign significant ascites present Extremities: No clubbing no cyanosis no edema peripheral pulses palpated bilaterally Neurological: Alert awake oriented in person time place and situation, cranial nerves II through XII intact, no motor or sensory deficits appreciated Psych: Appropriate mood, cooperative Lungs: Clear, Other Assessment and Plan Assessmemt and Plan Problems Medical Problems: (1) Dialysis patient Status: Acute Comment Review of Relevant I have reviewed the following items benjamin (where applicable) has been applied. Labs Laboratory Tests Test 05/31/18 20:52 05/31/18 21:45 06/01/18 05:05 06/01/18 05:40 Glucose (Fingerstick) 125 mg/dL (70-99) Troponin I Quantitative 0.096 ng/mL (0.000-0.055) Urine Collection Type Unknown Urine Color Yellow Urine Clarity Clear Urine pH 7.0 Urine Specific [place] 1.015 Urine Protein >=300 mg/dL (NEG-TRACE) Urine Glucose (UA) Negative mg/dL (NEG) Urine Ketones (Stick) Negative mg/dL (NEG) Urine Blood Negative (NEG) Urine Nitrite Negative (NEG) Urine Bilirubin Negative (NEG) Urine Urobilinogen Dipstick 1.0 mg/dL (0.2 mg/dL) Urine Leukocyte Esterase Negative (NEG) Urine RBC Occ /HPF (0-2) Urine WBC Occ /HPF (0-4) Urine Squamous Epithelial Cells Few /LPF Urine Bacteria 0 /HPF (0-FEW) Urine Hyaline Casts Few /HPF Urine Mucus Slight /LPF Urine Opiates Screen Pos (NEG) Urine Methadone Screen Neg (NEG) Urine Barbiturates Neg (NEG) Urine Phencyclidine Screen Neg (NEG) Urine Amphetamine/Methamphetamine Neg (NEG) Urine Benzodiazepines Screen Neg (NEG) Urine Cocaine Screen Neg (NEG) Urine Cannabinoids Screen Neg (NEG) Urine Ethyl Alcohol Neg (NEG) White Blood Count 4.6 x10^3/uL (4.0-11.0) Red Blood Count 4.45 x10^6/uL (4.30-5.70) Hemoglobin 11.9 g/dL (13.0-17.5) Hematocrit 36.9 % (39.0-53.0) Mean Corpuscular Volume 83 fL (79-100) Mean Corpuscular Hemoglobin 27 pg (25-35) Mean Corpuscular Hemoglobin Concent 32 g/dL (31-37) Red Cell Distribution Width 18.0 % (11.5-14.5) Platelet Count 259 x10^3/uL (140-400) Neutrophils (%) (Auto) 65 % (31-73) Lymphocytes (%) (Auto) 18 % (24-48) Monocytes (%) (Auto) 10 % (0-9) Eosinophils (%) (Auto) 6 % (0-3) Basophils (%) (Auto) 2 % (0-3) Neutrophils # (Auto) 3.0 x10^3uL (1.8-7.7) Lymphocytes # (Auto) 0.8 x10^3/uL (1.0-4.8) Monocytes # (Auto) 0.5 x10^3/uL (0.0-1.1) Eosinophils # (Auto) 0.3 x10^3/uL (0.0-0.7) Basophils # (Auto) 0.1 x10^3/uL (0.0-0.2) Sodium Level 139 mmol/L (136-145) Potassium Level 4.5 mmol/L (3.5-5.1) Chloride Level 101 mmol/L (98-107) Carbon Dioxide Level 24 mmol/L (21-32) Anion Gap 14 (6-14) Blood Urea Nitrogen 65 mg/dL (8-26) Creatinine 8.4 mg/dL (0.7-1.3) Estimated GFR (Cockcroft-Gault) 8.1 BUN/Creatinine Ratio 8 (6-20) Glucose Level 136 mg/dL (70-99) Calcium Level 8.9 mg/dL (8.5-10.1) Total Bilirubin 0.9 mg/dL (0.2-1.0) Aspartate Amino Transf (AST/SGOT) 10 U/L (15-37) Alanine Aminotransferase (ALT/SGPT) 14 U/L (16-63) Alkaline Phosphatase 102 U/L (46-116) Total Protein 7.1 g/dL (6.4-8.2) Albumin 3.2 g/dL (3.4-5.0) Albumin/Globulin Ratio 0.8 (1.0-1.7) Medications Current Medications Prochlorperazine Edisylate (Compazine) 5 mg 1X ONCE IV Last administered on at 14:31; Start 05/31/18 at 14:00; Stop 05/31/18 at 14:06; Status DC Morphine Sulfate (Morphine Sulfate) 4 mg 1X ONCE IV Last administered on at 14:30; Start 05/31/18 at 14:00; Stop 05/31/18 at 14:06; Status DC Aspirin (Children'S Aspirin) 324 mg 1X ONCE PO Last administered on 05/31/18at 15:30; Start 05/31/18 at 15:30; Stop 05/31/18 at 15:31; Status DC Ondansetron HCl (Zofran) 4 mg PRN Q8HRS PRN IV NAUSEA/VOMITING; Start 05/31/18 at 15:45; Stop 06/01/18 at 15:44; Status DC Morphine Sulfate (Morphine Sulfate) 2 mg PRN Q2HR PRN IV PAIN; Start 05/31/18 at 15:45; Stop 06/01/18 at 15:44; Status DC Acetaminophen (Tylenol) 650 mg PRN Q4HRS PRN PO FEVER; Start 05/31/18 at 15:45 ; Stop 06/01/18 at 15:44; Status DC Ciprofloxacin (Ciloxan Ophth) 1 drop QID OU Last administered on 06/02/18 17: 28; Start 05/31/18 at 18:00 Alprazolam (Xanax) 0.25 mg PRN BID PRN PO ANXIETY / AGITATION Last administered on 06/02/18 08:58; Start 05/31/18 at 17:30 Amlodipine Besylate (Norvasc) 10 mg DAILY PO Last administered on 06/02/18 08: 54; Start 06/01/18 at 09:00 Aspirin (Ecotrin) 325 mg DAILYWBKFT PO Last administered on 06/02/18 08:55; Start 06/01/18 at 08:00 Calcium/Vitamin D (Oscal D 500mg/ 200uts) 1 tab BIDWMEALS PO Last administered on 06/02/18 17:28; Start 06/01/18 at 17:00 Carvedilol (Coreg) 12.5 mg BIDWMEALS PO Last administered on 06/02/18 08:54; Start 06/01/18 at 08:00 Clonidine HCl (Catapres) 0.1 mg TID PO Last administered on 06/02/18 08:55; Start 05/31/18 at 21:00 Ferrous Sulfate (Feosol) 325 mg BIDWMEALS PO Last administered on 06/02/18 17: 28; Start 06/01/18 at 08:00 Furosemide (Lasix) 40 mg BID92 PO Last administered on 06/02/18 14:07; Start 06/01/18 at 09:00 Acetaminophen/ Hydrocodone Bitart (Lortab 5/325) 1 tab PRN Q6HRS PRN PO SEVERE PAIN Last administered on 06/02/18 17:28; Start 05/31/18 at 17:30 Hydralazine HCl (Apresoline) 50 mg TID PO Last administered on 2/21/19at 08:55 ; Start 05/31/18 at 21:00 Morphine Sulfate (Morphine Sulfate) 2 mg PRN Q2HR PRN IV PAIN; Start 05/31/18 at 17:45 Hydralazine HCl (Apresoline Inj) 25 mg PRN Q6HRS PRN IVP ELEVATED BP, SEE COMMENTS Last administered on 05/31/18at 23:51; Start 05/31/18 at 23:30 Lidocaine HCl (Xylocaine-Mpf 1% 2ml Vial) 2 ml STK-MED ONCE .ROUTE ; Start 06/01 at 08:01; Stop 06/01/18 at 08:02; Status DC Sodium Chloride 1,000 ml @ 1,000 mls/hr Q1H PRN IV hypotension; Start 06/01/18 at 08:00; Stop 06/01/18 at 13:59; Status DC Albumin Human 200 ml @ 200 mls/hr 1X PRN PRN IV Hypotension; Start 06/01/18 at 08:00; Stop 06/01/18 at 13:59; Status DC Sodium Chloride 1,000 ml @ 400 mls/hr Q2H30M PRN IV PATENCY; Start 06/01/18 at 08:00; Stop 06/01/18 at 19:59; Status DC Info (PHARMACY MONITORING -- do not chart) 1 each PRN DAILY PRN MC SEE COMMENTS ; Start 06/01/18 at 08:30; Status UNV Info (PHARMACY MONITORING -- do not chart) 1 each PRN DAILY PRN MC SEE COMMENTS ; Start 06/01/18 at 08:30 Lidocaine HCl (Xylocaine-Mpf 1% 2ml Vial) 2 ml 1X ONCE INJ ; Start 06/01/18 at 08:00; Stop 06/01/18 at 08:28; Status DC Albumin Human 100 ml @ As Directed STK-MED ONCE IV ; Start 06/02/18 at 10:51; Stop 06/02/18 at 10:52; Status DC Albumin Human 100 ml @ 100 mls/hr 1X ONCE IV Last administered on 06/02/18at 10:59; Start 06/02/18 at 11:00; Stop 06/02/18 at 11:59; Status DC Ondansetron HCl (Zofran) 4 mg PRN Q6HRS PRN IV NAUSEA/VOMITING; Start 06/03/18 at 07:00; Stop 06/04/18 at 06:59 Fentanyl Citrate (Fentanyl 2ml Vial) 25 mcg PRN Q5MIN PRN IV MILD PAIN; Start 06/03/18 at 07:00; Stop 06/04/18 at 06:59 Fentanyl Citrate (Fentanyl 2ml Vial) 50 mcg PRN Q5MIN PRN IV MODERATE TO SEVERE PAIN; Start 06/03/18 at 07:00; Stop 06/04/18 at 06:59 Morphine Sulfate (Morphine Sulfate) 1 mg PRN Q10MIN PRN IV SEVERE PAIN; Start 06/03/18 at 07:00; Stop 06/04/18 at 06:59 Ringer's Solution 1,000 ml @ 30 mls/hr Q24H IV ; Start 06/03/18 at 07:00; Stop 06/03/18 at 18:59 Lidocaine HCl (Xylocaine-Mpf 1% 2ml Vial) 2 ml PRN 1X PRN ID IV START; Start at 07:00; Stop 06/04/18 at 06:59 Hydromorphone HCl (Dilaudid) 0.5 mg PRN Q10MIN PRN IV SEV PAIN, Second choice; Start 06/03/18 at 07:00; Stop 06/04/18 at 06:59 Prochlorperazine Edisylate (Compazine) 5 mg PACU PRN PRN IV NAUSEA, MRX1; Start 06/03/18 at 07:00; Stop 06/04/18 at 06:59 Active Scripts Active Hydrocodone-Apap 5-325 (Hydrocodone Bit/Acetaminophen) 1 Each Tablet 1 Tab PO PRN Q6HRS PRN Furosemide 40 Mg Tablet 40 Mg PO BID92 30 Days Oyster Shell 500 Mg + Vit D Tb (Calcium Carbonate/Vitamin D3) 1 Each Tablet 1 Tab PO BIDWMEALS 30 Days Alprazolam 0.25 Mg Tablet 0.25 Mg PO PRN BID PRN 10 Days Feosol (Ferrous Sulfate) 325 Mg Tablet 325 Mg PO BIDWMEALS 30 Days Aspirin Ec (Aspirin) 325 Mg Tablet. 325 Mg PO DAILYWBKFT 30 Days Reported Amlodipine Besylate 10 Mg Tablet 10 Mg PO DAILY Carvedilol (Carvedilol) 12.5 Mg Tablet 12.5 Mg PO BIDWMEALS Hydralazine Hcl 50 Mg Tablet 1 Tab PO TID Clonidine Hcl 0.1 Mg Tablet 0.1 Mg PO TID Vitals/I & O Vital Sign - Last 24 Hours 06/01/18 06/01/18 06/01/18 06/01/18 20:10 20:10 23:19 23:36 Temp 98.1 98.1 Pulse 62 62 63 Resp 17 B/P (MAP) 105/59 105/59 129/88 (102) Pulse Ox 95 O2 Delivery Room Air Room Air 06/02/18 06/02/18 06/02/18 06/02/18 00:19 03:37 07:00 08:05 Temp 97.7 98.3 97.7 98.3 Pulse 60 61 Resp 18 18 B/P (MAP) 118/76 (90) 159/100 (119) Pulse Ox 95 96 O2 Delivery Room Air Room Air Room Air Room Air 06/02/18 06/02/18 06/02/18 06/02/18 08:54 08:54 08:55 08:55 Pulse 75 65 75 75 06/02/18 06/02/18 06/02/18 06/02/18 10:40 10:47 11:00 11:10 Pulse 53 53 53 53 Resp 12 18 17 17 B/P (MAP) 98/71 (80) 107/67 (80) 99/68 (78) 103/71 (82) Pulse Ox 92 93 93 93 O2 Delivery Room Air Room Air Room Air Room Air 06/02/18 06/02/18 15:00 19:40 Temp 97.5 97.5 97.5 97.5 Pulse 51 57 Resp 20 17 B/P (MAP) 99/59 (72) 118/84 (95) Pulse Ox 97 98 O2 Delivery Room Air Room Air Intake and Output 06/01/18 06/01/18 06/02/18 15:00 23:00 07:00 Intake Total 120 ml 250 ml 300 ml Output Total 0 ml 350 ml Balance 120 ml 250 ml -50 ml ZAK COTTO MD Jun 02, 2018 19:51
[2018-06-03] VITALS (10 sets, daily range): BP systolic 107–154; BP diastolic 60–107
[2018-06-03] MEDS: HYDROcodone/APAP 5/325MG 1 TAB TABLET PO PRN ×3 (03:38→23:00)
[2018-06-03] MEDS ORDERED: fentaNYL PF VIAL 100 MCG/2 ML VIAL IV PRN (07:00)
[2018-06-03] MEDS ORDERED: PROCHLORPERAZINE 10 MG/2 ML VIAL. IV PRN (07:00)
[2018-06-03] MEDS ORDERED: ONDANSETRON PF 4 MG/2 ML VIAL. IV PRN ×2 (07:00→15:00)
[2018-06-03] MEDS ORDERED: IV RINGERS,LACTATED 1000ML 1,000 ML IV SCH (07:00)
[2018-06-03] MEDS ORDERED: LIDOCAINE 1% PF 2 ML VIAL. ID PRN (07:00)
[2018-06-03] MEDS ORDERED: HYDROmorphone 2 MG/ML VIAL IV PRN (07:00)
[2018-06-03] MEDS: CARVEDILOL 12.5 MG TABLET. PO SCH ×2 (08:00→17:00)
[2018-06-03] MEDS: cloNIDine HCL 0.1 MG TABLET PO SCH ×3 (08:33→20:45)
[2018-06-03] MEDS: amLODIPine BESYLATE 10 MG TABLET PO SCH (08:33)
[2018-06-03] MEDS: CIPROFLOXACIN 0.3% OPHTH SOLUTION 5ML BOTTLE. OU SCH ×4 (08:33→20:44)
[2018-06-03] MEDS: FUROSEMIDE 40 MG TABLET. PO SCH ×2 (08:33→15:34)
[2018-06-03] MEDS: FERROUS SULFATE 325 MG TABLET. PO SCH ×2 (08:34→17:41)
[2018-06-03] MEDS: CALCIUM CARB/VIT D3 500/200 TABLET. PO SCH ×2 (08:34→17:41)
[2018-06-03] MEDS: IV NORMAL SALINE 1000ML BAG 1,000 ML IV SCH ×2 (08:45→14:47)
--- NOTE | 2018-06-03 08:56 | PDOC2 ---
CONSULT Date of Consult Date of Consult DATE: 06/03/18 TIME: 08:51 Reason for Consult Reason for Consult: PD cath Referring Physician Referring Physician: Dr Arana Identification/Chief Complaint Chief Complaint abdominal pain, SOA Source Source: Chart review, Patient History of Present Illness Reason for Visit: Hx of ESRD and HD, wanting to dc PD Admitted with abdominal pain, SOA--new onset of ascites this month, underwent paracentesis x 2-last one yesterday over 6000cc removed pain is improved Past Medical History Cardiovascular: HTN Pulmonary: Asthma CENTRAL NERVOUS SYSTEM: CVA, Periperal neuropathy GI: No pertinent hx Heme/Onc: Anemia NOS Hepatobiliary: No pertinent hx Psych: Anxiety Musculoskeletal: Osteoarthritis Rheumatologic: No pertinent hx Infectious disease: No pertinent hx Renal/: Chronic renal failure Endocrine: No pertinent hx Past Surgical History Past Surgical History: Hernia Repair, Other Family History Family History: Heart Disease, Hypertension, Stroke Social History ALCOHOL: none Drugs: None Lives: with Family Current Problem List Problem List Problems Medical Problems: (1) Dialysis patient Status: Acute Current Medications Current Medications Current Medications Prochlorperazine Edisylate (Compazine) 5 mg 1X ONCE IV Last administered on at 14:31; Start 05/31/18 at 14:00; Stop 05/31/18 at 14:06; Status DC Morphine Sulfate (Morphine Sulfate) 4 mg 1X ONCE IV Last administered on at 14:30; Start 05/31/18 at 14:00; Stop 05/31/18 at 14:06; Status DC Aspirin (Children'S Aspirin) 324 mg 1X ONCE PO Last administered on 05/31/18at 15:30; Start 05/31/18 at 15:30; Stop 05/31/18 at 15:31; Status DC Ondansetron HCl (Zofran) 4 mg PRN Q8HRS PRN IV NAUSEA/VOMITING; Start 05/31/18 at 15:45; Stop 06/01/18 at 15:44; Status DC Morphine Sulfate (Morphine Sulfate) 2 mg PRN Q2HR PRN IV PAIN; Start 05/31/18 at 15:45; Stop 06/01/18 at 15:44; Status DC Acetaminophen (Tylenol) 650 mg PRN Q4HRS PRN PO FEVER; Start 05/31/18 at 15:45 ; Stop 06/01/18 at 15:44; Status DC Ciprofloxacin (Ciloxan Ophth) 1 drop QID OU Last administered on 06/03/18 08: 33; Start 05/31/18 at 18:00 Alprazolam (Xanax) 0.25 mg PRN BID PRN PO ANXIETY / AGITATION Last administered on 06/02/18 08:58; Start 05/31/18 at 17:30 Amlodipine Besylate (Norvasc) 10 mg DAILY PO Last administered on 06/03/18 08: 33; Start 06/01/18 at 09:00 Aspirin (Ecotrin) 325 mg DAILYWBKFT PO Last administered on 06/02/18 08:55; Start 06/01/18 at 08:00 Calcium/Vitamin D (Oscal D 500mg/ 200uts) 1 tab BIDWMEALS PO Last administered on 06/03/18 08:34; Start 06/01/18 at 17:00 Carvedilol (Coreg) 12.5 mg BIDWMEALS PO Last administered on 06/02/18 08:54; Start 06/01/18 at 08:00 Clonidine HCl (Catapres) 0.1 mg TID PO Last administered on 06/03/18 08:33; Start 05/31/18 at 21:00 Ferrous Sulfate (Feosol) 325 mg BIDWMEALS PO Last administered on 06/03/18 08: 34; Start 06/01/18 at 08:00 Furosemide (Lasix) 40 mg BID92 PO Last administered on 06/03/18 08:33; Start 06/01/18 at 09:00 Acetaminophen/ Hydrocodone Bitart (Lortab 5/325) 1 tab PRN Q6HRS PRN PO SEVERE PAIN Last administered on 06/03/18 03:38; Start 05/31/18 at 17:30 Hydralazine HCl (Apresoline) 50 mg TID PO Last administered on 06/03/18 08:34 ; Start 05/31/18 at 21:00 Morphine Sulfate (Morphine Sulfate) 2 mg PRN Q2HR PRN IV PAIN; Start 05/31/18 at 17:45 Hydralazine HCl (Apresoline Inj) 25 mg PRN Q6HRS PRN IVP ELEVATED BP, SEE COMMENTS Last administered on 2/19/19at 23:51; Start 05/31/18 at 23:30 Lidocaine HCl (Xylocaine-Mpf 1% 2ml Vial) 2 ml STK-MED ONCE .ROUTE ; Start 06/01 at 08:01; Stop 06/01/18 at 08:02; Status DC Sodium Chloride 1,000 ml @ 1,000 mls/hr Q1H PRN IV hypotension; Start 06/01/18 at 08:00; Stop 06/01/18 at 13:59; Status DC Albumin Human 200 ml @ 200 mls/hr 1X PRN PRN IV Hypotension; Start 06/01/18 at 08:00; Stop 06/01/18 at 13:59; Status DC Sodium Chloride 1,000 ml @ 400 mls/hr Q2H30M PRN IV PATENCY; Start 06/01/18 at 08:00; Stop 06/01/18 at 19:59; Status DC Info (PHARMACY MONITORING -- do not chart) 1 each PRN DAILY PRN MC SEE COMMENTS ; Start 06/01/18 at 08:30; Status UNV Info (PHARMACY MONITORING -- do not chart) 1 each PRN DAILY PRN MC SEE COMMENTS ; Start 06/01/18 at 08:30 Lidocaine HCl (Xylocaine-Mpf 1% 2ml Vial) 2 ml 1X ONCE INJ ; Start 06/01/18 at 08:00; Stop 06/01/18 at 08:28; Status DC Albumin Human 100 ml @ As Directed STK-MED ONCE IV ; Start 06/02/18 at 10:51; Stop 06/02/18 at 10:52; Status DC Albumin Human 100 ml @ 100 mls/hr 1X ONCE IV Last administered on 06/02/18at 10:59; Start 06/02/18 at 11:00; Stop 06/02/18 at 11:59; Status DC Ondansetron HCl (Zofran) 4 mg PRN Q6HRS PRN IV NAUSEA/VOMITING; Start 06/03/18 at 07:00; Stop 06/04/18 at 06:59 Fentanyl Citrate (Fentanyl 2ml Vial) 25 mcg PRN Q5MIN PRN IV MILD PAIN; Start 06/03/18 at 07:00; Stop 06/04/18 at 06:59 Fentanyl Citrate (Fentanyl 2ml Vial) 50 mcg PRN Q5MIN PRN IV MODERATE TO SEVERE PAIN; Start 06/03/18 at 07:00; Stop 06/04/18 at 06:59 Morphine Sulfate (Morphine Sulfate) 1 mg PRN Q10MIN PRN IV SEVERE PAIN; Start 06/03/18 at 07:00; Stop 06/04/18 at 06:59 Ringer's Solution 1,000 ml @ 30 mls/hr Q24H IV ; Start 06/03/18 at 07:00; Stop 06/03/18 at 08:41; Status DC Lidocaine HCl (Xylocaine-Mpf 1% 2ml Vial) 2 ml PRN 1X PRN ID IV START; Start at 07:00; Stop 06/04/18 at 06:59 Hydromorphone HCl (Dilaudid) 0.5 mg PRN Q10MIN PRN IV SEV PAIN, Second choice; Start 06/03/18 at 07:00; Stop 06/04/18 at 06:59 Prochlorperazine Edisylate (Compazine) 5 mg PACU PRN PRN IV NAUSEA, MRX1; Start 06/03/18 at 07:00; Stop 06/04/18 at 06:59 Sodium Chloride 1,000 ml @ 30 mls/hr Q24H IV ; Start 06/03/18 at 08:45 Active Scripts Active Hydrocodone-Apap 5-325 (Hydrocodone Bit/Acetaminophen) 1 Each Tablet 1 Tab PO PRN Q6HRS PRN Furosemide 40 Mg Tablet 40 Mg PO BID92 30 Days Oyster Shell 500 Mg + Vit D Tb (Calcium Carbonate/Vitamin D3) 1 Each Tablet 1 Tab PO BIDWMEALS 30 Days Alprazolam 0.25 Mg Tablet 0.25 Mg PO PRN BID PRN 10 Days Feosol (Ferrous Sulfate) 325 Mg Tablet 325 Mg PO BIDWMEALS 30 Days Aspirin Ec (Aspirin) 325 Mg Tablet.dr 325 Mg PO DAILYWBKFT 30 Days Reported Amlodipine Besylate 10 Mg Tablet 10 Mg PO DAILY Carvedilol (Carvedilol) 12.5 Mg Tablet 12.5 Mg PO BIDWMEALS Hydralazine Hcl 50 Mg Tablet 1 Tab PO TID Clonidine Hcl 0.1 Mg Tablet 0.1 Mg PO TID Allergies Allergies: Coded Allergies: lisinopril (Verified Allergy, Severe, Swelling, 06/01/17) I S O L A T I O N *CONTACT* (Verified Allergy, Unknown, 01/17/18) +MRSA nares 01/15/18 codeine (Verified Adverse Reaction, Mild, itching, 05/31/18) ROS General: No: Chills, Other (fevers ) PSYCHOLOGICAL ROS: No: Anxiety, Depression Eyes: No Blurry vision, No Double vision HEENT: No: Heacaches, Sore Throat Hematological and Lymphatic: No: Bleeding Problems, Blood Clots Respiratory: YES: Shortness of breath; No: Cough Cardiovascular: No Chest Pain, No Palpitations Gastrointestinal: Yes Nausea, Yes Abdominal Pain; No Vomiting Genitourinary: No Dysuria, No Hematuria Musculoskeletal: No Joint Pain, No Muscle Pain Neurological: No Confusion, No Impaired Coord/balance Skin: No Pruritus, No Rash Physical Exam General: Alert, Oriented X3, Cooperative, No acute distress HEENT: Atraumatic, PERRLA Lungs: Other (diminished ) Heart: Regular rate, Normal S1, Normal S2 Abdomen: Soft, Other (distended, dressing in place from paracentesis, reducible umbo hernia) Extremities: No clubbing, No cyanosis Skin: No rashes, No breakdown Neuro: Normal speech, Sensation intact Psych/Mental Status: Mental status NL, Mood NL MUSCULOSKELETAL: No deformity, No swelling Vitals VITALS Vital Signs Date Time Temp Pulse Resp B/P (MAP) Pulse Ox O2 Delivery O2 Flow Rate FiO2 06/03/18 08:34 52 142/91 06/03/18 08:00 Room Air 06/03/18 07:00 98.1 18 95 98.1 Assessment/Plan Assessment/Plan ESRD, ascites umbo hernia possible PD cath--will review with BERTIN Bernabe APRN Jun 03, 2018 08:56
[2018-06-03] MEDS ORDERED: BUPIVAC MPF-EPI 0.5%-1:200000 30 ML VIAL. ONE (11:44)
[2018-06-03] MEDS ORDERED: fentaNYL PF VIAL 100 MCG/2 ML VIAL ONE (11:47)
[2018-06-03] MEDS ORDERED: PROPOFOL 20 ML IV ONE (11:47)
[2018-06-03] MEDS ORDERED: ROCURONIUM 50 MG/5 ML VIAL. ONE (11:47)
[2018-06-03] MEDS ORDERED: DEXAMETHASONE SOD PHOS 20 MG/5 ML VIAL. ONE (11:47)
[2018-06-03] MEDS ORDERED: ONDANSETRON PF 4 MG/2 ML VIAL. ONE (11:47)
[2018-06-03] MEDS ORDERED: LIDOCAINE 2% PF 5 ML VIAL. ONE (11:47)
--- NOTE | 2018-06-03 11:56 | PDOC ---
Subjective: Subjective: I saw him earlier this morning. Much more distended today but not uncomfortable. Plans for PD cath placement today. Objective: Objective: Reviewed w/ RN. Vital Signs: Vital Signs Date Time Temp Pulse Resp B/P (MAP) Pulse Ox O2 Delivery O2 Flow Rate FiO2 06/03/18 11:21 97.2 55 13 155/97 97 Room Air 97.2 PE: GEN: NAD - standing in room, staff placing tele stickers LUNGS: room air ABD: recurrent distention NEURO/PSYCH: A & O 3 A/P: ESRD on HD Recurrent ascites requiring paracentesis -- Plans for PD cath placement, will follow. NEGAR CLEMONS Jun 03, 2018 11:56
[2018-06-03] MEDS ORDERED: HEPARIN SODIUM 5,000 UNIT in IV NORMAL SALINE 500ML BAG 500 ML IRR ONE (12:00)
[2018-06-03] MEDS ORDERED: NEOSTIGMINE 10 MG/10 ML VIAL. ONE (13:16)
[2018-06-03] MEDS ORDERED: GLYCOPYRROLATE 1 MG/5 ML VIAL. ONE (13:16)
[2018-06-03] MEDS ORDERED: SEVOFLURANE 61 TO 120 MINUTES. IH ONE (13:16)
--- NOTE | 2018-06-03 13:46 | PDOC ---
BRIEF OPERATIVE NOTE Date: Jun 03, 2018 Pre-Op Diagnosis ESRD, ascites,umbilical hernia Post-Op Diagnosis same Procedure Performed l/s placement of PD catheter, primary repair of umbilical hernia Surgeon Robert Anesthesia Type: General Blood Loss 10cc IV Fluid 500cc Specimens Obtained 2500cc ascitic fluid Findings ascites, umbilical hernia Complications none Operative Note Wk # [id number] LUZ ELENA HERRERA MD Jun 03, 2018 13:46
[2018-06-03] MEDS: fentaNYL PF VIAL 100 MCG/2 ML VIAL IV PRN ×2 (14:03→14:25)
--- NOTE | 2018-06-03 14:03 | OP ---
DATE OF SURGERY: 06/03/2018 PREOPERATIVE DIAGNOSIS: End-stage renal disease with ascites and an umbilical hernia. POSTOPERATIVE DIAGNOSIS: End-stage renal disease with ascites and an umbilical hernia. PROCEDURE: Laparoscopic placement of peritoneal dialysis catheter, primary repair of umbilical hernia. SURGEON: Luz Elena Herrera MD ANESTHESIA: General endotracheal. BLOOD LOSS: 10. INTRAVENOUS FLUIDS: 500. DESCRIPTION OF PROCEDURE: The patient brought to the operating suite, given a general endotracheal anesthetic and the abdomen prepped and draped in usual sterile fashion. The template was used to outline positioning of the peritoneal dialysis catheter to exit above the belt line. A 0.5% Marcaine with epinephrine was infiltrated in the skin below the umbilicus. Small incision was made and a 5 mm Visiport used to gain access into the abdominal cavity through the umbilical hernia. Pneumoperitoneum established and under direct vision, an epigastric port was placed. Abdomen was then evacuated approximately 2500 mL of ascitic fluid. The insertion site was infiltrated with local anesthetic, incised and under direct vision, the needle passed into the abdomen. A sheath was dilated and the catheter placed into the true pelvis and the Dacron cuff was seated just above the peritoneum. Remainder of the catheter was tunneled subcutaneously out the access site. An Endo Close needle was used to place a stitch in the umbilical hernia using 0 Vicryl. Pneumoperitoneum released. Catheter flushed with 500 mL, which was readily accepted and drained similar amount easily. Skin incisions closed with subcuticular 4-0 Monocryl after 0 Vicryl in the subcutaneous. Sterile dressings applied. The patient awakened from his anesthetic and taken to the recovery room in satisfactory condition. LUZ ELENA HERRERA MD DR: NORMA/savannah JOB#: [id number] / [id number]
--- NOTE | 2018-06-03 14:20 | PDOC ---
PROGRESS NOTES Chief Complaint Chief Complaint New-onset ascites etiology most likely related to hypoalbuminemia. Liver disease work up so far negative. Bacterial conjunctivitis End-stage renal disease on hemodialysis Abdominal pain secondary to the ascites, very low suspicion for SBP or other surgical process given the benign nature of his physical exam Essential hypertension currently fairly controlled History of GERD Plan: nephrology for dialysis management Peritoneal dialysis catheter placement today ciprofloxacin ophthalmic for conjunctivitis Resume home meds Reassess in the a.m., further recommendations based on clinical course DVT prophylaxis with heparin History of Present Illness History of Present Illness Patient will undergo peritoneal dialysis catheter placement, he feels better after 6 liters of ascitic fluid were removed yesterday. Of fever chills or abdominal pain reported today Vitals Vitals Vital Signs Date Time Temp Pulse Resp B/P (MAP) Pulse Ox O2 Delivery O2 Flow Rate FiO2 06/03/18 14:09 52 20 123/81 100 Simple Mask 10 06/03/18 13:39 97.0 97.0 Physical Exam Physical Exam Gen.: chronically ill appearing in no apparent distress Head: Normal shape atraumatic Eyes: Pupils equal reactive to light and accommodation, normal conjunctivae and lids Ears: Normal shape Nose: Normal shape no trauma Mouth: No exudates of the back of throat no thrush no lesions Neck: Supple no JVD no carotid bruit or lymphadenopathy no thyromegaly Chest: Lungs clear to auscultation with good inspiratory effort no crackles rales or rhonchi Cardiovascular: S1-S2 regular rhythm sytolic murmur gallops or rubs Abdomen: Bowel sounds present soft nontender no hepatosplenomegaly appreciated sign significant ascites present Extremities: No clubbing no cyanosis no edema peripheral pulses palpated bilaterally Neurological: Alert awake oriented in person time place and situation, cranial nerves II through XII intact, no motor or sensory deficits appreciated Psych: Appropriate mood, cooperative General: Alert, Oriented X3, Cooperative, No acute distress Heart: Regular rate, Normal S1, Normal S2 Lungs: Clear, Other Abdomen: Soft, Other (distended, dressing in place from paracentesis, reducible umbo hernia) Extremities: No clubbing, No cyanosis Skin: No rashes, No breakdown Review of Systems Review of Systems HEENT as per history of present illness otherwise 14 point review of system is negative Assessment and Plan Assessmemt and Plan Problems Medical Problems: (1) Dialysis patient Status: Acute Comment Review of Relevant I have reviewed the following items benjamin (where applicable) has been applied. Medications Current Medications Prochlorperazine Edisylate (Compazine) 5 mg 1X ONCE IV Last administered on 14:31; Start 05/31/18 at 14:00; Stop 05/31/18 at 14:06; Status DC Morphine Sulfate (Morphine Sulfate) 4 mg 1X ONCE IV Last administered on 14:30; Start 05/31/18 at 14:00; Stop 05/31/18 at 14:06; Status DC Aspirin (Children'S Aspirin) 324 mg 1X ONCE PO Last administered on 05/31/18 15:30; Start 05/31/18 at 15:30; Stop 05/31/18 at 15:31; Status DC Ondansetron HCl (Zofran) 4 mg PRN Q8HRS PRN IV NAUSEA/VOMITING; Start 05/31/18 at 15:45; Stop 06/01/18 at 15:44; Status DC Morphine Sulfate (Morphine Sulfate) 2 mg PRN Q2HR PRN IV PAIN; Start 05/31/18 at 15:45; Stop 06/01/18 at 15:44; Status DC Acetaminophen (Tylenol) 650 mg PRN Q4HRS PRN PO FEVER; Start 05/31/18 at 15:45 ; Stop 06/01/18 at 15:44; Status DC Ciprofloxacin (Ciloxan Ophth) 1 drop QID OU Last administered on 06/03/18 08: 33; Start 05/31/18 at 18:00 Alprazolam (Xanax) 0.25 mg PRN BID PRN PO ANXIETY / AGITATION Last administered on 06/02/18 08:58; Start 05/31/18 at 17:30 Amlodipine Besylate (Norvasc) 10 mg DAILY PO Last administered on 06/03/18 08: 33; Start 06/01/18 at 09:00 Aspirin (Ecotrin) 325 mg DAILYWBKFT PO Last administered on 06/02/18 08:55; Start 06/01/18 at 08:00 Calcium/Vitamin D (Oscal D 500mg/ 200uts) 1 tab BIDWMEALS PO Last administered on 06/03/18 08:34; Start 06/01/18 at 17:00 Carvedilol (Coreg) 12.5 mg BIDWMEALS PO Last administered on 06/03/18 08:00; Start 06/01/18 at 08:00 Clonidine HCl (Catapres) 0.1 mg TID PO Last administered on 06/03/18 08:33; Start 05/31/18 at 21:00 Ferrous Sulfate (Feosol) 325 mg BIDWMEALS PO Last administered on 06/03/18 08: 34; Start 06/01/18 at 08:00 Furosemide (Lasix) 40 mg BID92 PO Last administered on 06/03/18 08:33; Start 06/01/18 at 09:00 Acetaminophen/ Hydrocodone Bitart (Lortab 5/325) 1 tab PRN Q6HRS PRN PO SEVERE PAIN Last administered on 06/03/18 03:38; Start 05/31/18 at 17:30 Hydralazine HCl (Apresoline) 50 mg TID PO Last administered on 06/03/18 08:34 ; Start 05/31/18 at 21:00 Morphine Sulfate (Morphine Sulfate) 2 mg PRN Q2HR PRN IV PAIN; Start 05/31/18 at 17:45 Hydralazine HCl (Apresoline Inj) 25 mg PRN Q6HRS PRN IVP ELEVATED BP, SEE COMMENTS Last administered on 05/31/18at 23:51; Start 05/31/18 at 23:30 Lidocaine HCl (Xylocaine-Mpf 1% 2ml Vial) 2 ml STK-MED ONCE .ROUTE ; Start 06/01 at 08:01; Stop 06/01/18 at 08:02; Status DC Sodium Chloride 1,000 ml @ 1,000 mls/hr Q1H PRN IV hypotension; Start 06/01/18 at 08:00; Stop 06/01/18 at 13:59; Status DC Albumin Human 200 ml @ 200 mls/hr 1X PRN PRN IV Hypotension; Start 06/01/18 at 08:00; Stop 06/01/18 at 13:59; Status DC Sodium Chloride 1,000 ml @ 400 mls/hr Q2H30M PRN IV PATENCY; Start 06/01/18 at 08:00; Stop 06/01/18 at 19:59; Status DC Info (PHARMACY MONITORING -- do not chart) 1 each PRN DAILY PRN MC SEE COMMENTS ; Start 06/01/18 at 08:30; Status UNV Info (PHARMACY MONITORING -- do not chart) 1 each PRN DAILY PRN MC SEE COMMENTS ; Start 06/01/18 at 08:30 Lidocaine HCl (Xylocaine-Mpf 1% 2ml Vial) 2 ml 1X ONCE INJ ; Start 06/01/18 at 08:00; Stop 06/01/18 at 08:28; Status DC Albumin Human 100 ml @ As Directed STK-MED ONCE IV ; Start 06/02/18 at 10:51; Stop 06/02/18 at 10:52; Status DC Albumin Human 100 ml @ 100 mls/hr 1X ONCE IV Last administered on 06/02/18at 10:59; Start 06/02/18 at 11:00; Stop 06/02/18 at 11:59; Status DC Ondansetron HCl (Zofran) 4 mg PRN Q6HRS PRN IV NAUSEA/VOMITING; Start 06/03/18 at 07:00; Stop 06/04/18 at 06:59 Fentanyl Citrate (Fentanyl 2ml Vial) 25 mcg PRN Q5MIN PRN IV MILD PAIN; Start 06/03/18 at 07:00; Stop 06/04/18 at 06:59 Fentanyl Citrate (Fentanyl 2ml Vial) 50 mcg PRN Q5MIN PRN IV MODERATE TO SEVERE PAIN Last administered on 06/03/18at 14:03; Start 06/03/18 at 07:00; Stop 06/04/18 at 06:59 Morphine Sulfate (Morphine Sulfate) 1 mg PRN Q10MIN PRN IV SEVERE PAIN; Start 06/03/18 at 07:00; Stop 06/04/18 at 06:59 Ringer's Solution 1,000 ml @ 30 mls/hr Q24H IV ; Start 06/03/18 at 07:00; Stop 06/03/18 at 08:41; Status DC Lidocaine HCl (Xylocaine-Mpf 1% 2ml Vial) 2 ml PRN 1X PRN ID IV START; Start at 07:00; Stop 06/04/18 at 06:59 Hydromorphone HCl (Dilaudid) 0.5 mg PRN Q10MIN PRN IV SEV PAIN, Second choice; Start 06/03/18 at 07:00; Stop 06/04/18 at 06:59 Prochlorperazine Edisylate (Compazine) 5 mg PACU PRN PRN IV NAUSEA, MRX1; Start 06/03/18 at 07:00; Stop 06/04/18 at 06:59 Sodium Chloride 1,000 ml @ 30 mls/hr Q24H IV ; Start 06/03/18 at 08:45 Lidocaine HCl (Xylocaine-Mpf 1% 2ml Vial) 2 ml STK-MED ONCE .ROUTE ; Start 06/01 at 08:00; Stop 06/03/18 at 08:55; Status DC Heparin Sodium (Porcine) 5000 unit/Sodium Chloride 505 ml @ 505 mls/hr 1X ONCE IRR ; Start 06/03/18 at 12:00; Stop 06/03/18 at 12:59; Status DC Bupivacaine HCl/ Epinephrine Bitart (Sensorcain-Mpf Epi 0.5%-1:164267) 30 ml STK -MED ONCE .ROUTE ; Start 06/03/18 at 11:44; Stop 06/03/18 at 11:45; Status DC Fentanyl Citrate (Fentanyl 2ml Vial) 100 mcg STK-MED ONCE .ROUTE ; Start at 11:47; Stop 06/03/18 at 11:48; Status DC Rocuronium [place] (Zemuron) 50 mg STK-MED ONCE .ROUTE ; Start 06/03/18 at 11:47 ; Stop 06/03/18 at 11:48; Status DC Ondansetron HCl (Zofran) 4 mg STK-MED ONCE .ROUTE ; Start 06/03/18 at 11:47; Stop 06/03/18 at 11:48; Status DC Dexamethasone Sodium Phosphate (Decadron) 20 mg STK-MED ONCE .ROUTE ; Start at 11:47; Stop 06/03/18 at 11:48; Status DC Lidocaine HCl (Lidocaine Pf 2% Vial) 5 ml STK-MED ONCE .ROUTE ; Start 06/03/18 at 11:47; Stop 06/03/18 at 11:48; Status DC Propofol 20 ml @ As Directed STK-MED ONCE IV ; Start 06/03/18 at 11:47; Stop at 11:48; Status DC Cefazolin Sodium/ Dextrose 50 ml @ As Directed STK-MED ONCE IV ; Start 06/03/18 at 12:03; Stop 06/03/18 at 12:04; Status DC Neostigmine Methylsulfate (Bloxiverz) 10 mg STK-MED ONCE .ROUTE ; Start at 13:16; Stop 06/03/18 at 13:17; Status DC Sevoflurane (Ultane) 60 ml STK-MED ONCE IH ; Start 06/03/18 at 13:16; Stop 06/03 at 13:17; Status DC Glycopyrrolate (Robinul) 1 mg STK-MED ONCE .ROUTE ; Start 06/03/18 at 13:16; Stop 06/03/18 at 13:17; Status DC Cefazolin Sodium/ Dextrose 50 ml @ 100 mls/hr 1X ONCE IV ; Start 06/03/18 at 14:15; Stop 06/03/18 at 14:44 Active Scripts Active Hydrocodone-Apap 5-325 (Hydrocodone Bit/Acetaminophen) 1 Each Tablet 1 Tab PO PRN Q6HRS PRN Furosemide 40 Mg Tablet 40 Mg PO BID92 30 Days Oyster Shell 500 Mg + Vit D Tb (Calcium Carbonate/Vitamin D3) 1 Each Tablet 1 Tab PO BIDWMEALS 30 Days Alprazolam 0.25 Mg Tablet 0.25 Mg PO PRN BID PRN 10 Days Feosol (Ferrous Sulfate) 325 Mg Tablet 325 Mg PO BIDWMEALS 30 Days Aspirin Ec (Aspirin) 325 Mg Tablet.dr 325 Mg PO DAILYWBKFT 30 Days Reported Amlodipine Besylate 10 Mg Tablet 10 Mg PO DAILY Carvedilol (Carvedilol) 12.5 Mg Tablet 12.5 Mg PO BIDWMEALS Hydralazine Hcl 50 Mg Tablet 1 Tab PO TID Clonidine Hcl 0.1 Mg Tablet 0.1 Mg PO TID Vitals/I & O Vital Sign - Last 24 Hours 06/02/18 06/02/18 06/02/18 06/02/18 15:00 19:25 19:40 20:29 Temp 97.5 97.5 97.5 97.5 Pulse 51 57 57 Resp 20 17 B/P (MAP) 99/59 (72) 118/84 (95) 118/84 Pulse Ox 97 98 O2 Delivery Room Air Room Air Room Air 06/02/18 06/02/18 06/03/18 06/03/18 20:29 23:26 03:30 04:42 Temp 97.6 98.0 97.6 98.0 Pulse 57 54 57 Resp 17 18 B/P (MAP) 118/84 128/84 (99) 130/93 (105) Pulse Ox 97 97 O2 Delivery Room Air Room Air Room Air 06/03/18 06/03/18 06/03/18 06/03/18 07:00 08:00 08:00 08:33 Temp 98.1 98.1 Pulse 52 52 52 Resp 18 B/P (MAP) 142/91 (108) 142/91 142/91 Pulse Ox 95 O2 Delivery Room Air Room Air 06/03/18 06/03/18 06/03/18 06/03/18 08:33 08:34 11:21 13:39 Temp 97.2 97.0 97.2 97.0 Pulse 52 52 55 52 Resp 13 20 B/P (MAP) 142/91 142/91 155/97 163/102 Pulse Ox 97 100 O2 Delivery Room Air Simple Mask O2 Flow Rate 10 06/03/18 06/03/18 06/03/18 13:54 14:03 14:09 Pulse 50 52 Resp 20 20 20 B/P (MAP) 126/83 123/81 Pulse Ox 100 100 100 O2 Delivery Simple Mask Simple Mask Simple Mask O2 Flow Rate 10 10.0 10 Intake and Output 06/02/18 06/02/18 06/03/18 15:00 23:00 07:00 Intake Total 800 ml 300 ml Output Total 6260 ml 250 ml 200 ml Balance -6260 ml 550 ml 100 ml ZAK COTTO MD Jun 03, 2018 14:20
[2018-06-03] MEDS: MORPHINE SULFATE 4 MG/ML VIAL. IV PRN ×2 (14:37→15:06)
[2018-06-03] MEDS ORDERED: 0.9 % SODIUM CHLORIDE 10 ML DISP.SYRIN. IV PRN (15:00)
[2018-06-03] MEDS ORDERED: DEXTROSE 50% 25 GM / 50ML DISP.SYRIN. IV PRN (15:00)
[2018-06-03] MEDS ORDERED: diphenhydrAMINE HCL 25 MG CAPSULE PO PRN (15:00)
--- NOTE | 2018-06-03 15:00 | PDOC ---
SUBJECTIVE ROS S/P Laparoscopic placement of peritoneal dialysis catheter, primary repair of umbilical hernia. OBJECTIVE Vital Signs Vital Signs Date Time Temp Pulse Resp B/P (MAP) Pulse Ox O2 Delivery O2 Flow Rate FiO2 06/03/18 14:53 52 20 143/97 90 Room Air 06/03/18 14:09 10 06/03/18 13:39 97.0 97.0 I & 0 Intake and Output 06/03/18 06:59 Intake Total 1100 ml Output Total 6710 ml Balance -5610 ml Intake Oral 1100 ml Output Urine Total 450 ml Drainage Total 6260 ml PHYSICAL EXAM Physical Exam GEN.: NAD HEENT: OM moist NECK: Supple. LUNGS: Clear to auscultation. HEART: RRR, S1, S2 present. ABDOMEN: Soft, PD cath placed EXTREMITIES: No edema NEUROLOGIC: Grossly normal SKIN: No rash No gonzalez DIAGNOSIS/ASSESSMENT Assessment & Plan ESRD- On HD TTS as OP Dialyses 06/01, refused yesterday (his schedule day) No indication today S/P PD cath placement Ascites - s/p paracentesis - 6260 cc removed Recurrent ascites - s/p paracentesis x 2 now No further sigala recommended by GI Anemia- Hgb stable No Indication for AMAN HTN- Continue Antihypertensives COMMENT/RELEVANT DATA Meds Current Medications Medications (Trade) Dose Ordered Sig/Sascha Start Time Stop Time Status Last Admin Dose Admin Acetaminophen (Tylenol) 650 mg PRN Q4HRS PRN 05/31/18 15:45 06/01/18 15:44 DC Acetaminophen/ Hydrocodone Bitart (Lortab 5/325) 1 tab PRN Q4HRS PRN 06/03/18 15:00 UNV Albumin Human 100 ml @ 100 mls/hr 1X ONCE 06/02/18 11:00 06/02/18 11:59 DC 06/02/18 10:59 100 MLS/HR Alprazolam (Xanax) 0.25 mg PRN BID PRN 05/31/18 17:30 06/02/18 08:58 0.25 MG Amlodipine Besylate (Norvasc) 10 mg DAILY 06/01/18 09:00 06/03/18 08:33 10 MG Aspirin (Children'S Aspirin) 324 mg 1X ONCE 05/31/18 15:30 05/31/18 15:31 DC 05/31/18 15:30 324 MG Aspirin (Ecotrin) 325 mg DAILYWBKFT 06/01/18 08:00 06/02/18 08:55 325 MG Bupivacaine HCl/ Epinephrine Bitart (Sensorcain-Mpf Epi 0.5%-1:742735) 30 ml STK-MED ONCE 06/03/18 11:44 06/03/18 11:45 DC Calcium/Vitamin D (Oscal D 500mg/ 200uts) 1 tab BIDWMEALS 06/01/18 17:00 06/03/18 08:34 1 TAB Carvedilol (Coreg) 12.5 mg BIDWMEALS 06/01/18 08:00 06/03/18 08:00 12.5 MG Cefazolin Sodium/ Dextrose 50 ml @ 100 mls/hr 1X ONCE 06/03/18 14:15 06/03/18 14:44 DC 06/03/18 12:29 100 MLS/HR Ciprofloxacin (Ciloxan Ophth) 1 drop QID 05/31/18 18:00 06/03/18 08:33 1 DROP Clonidine HCl (Catapres) 0.1 mg TID 05/31/18 21:00 06/03/18 08:33 0.1 MG Dexamethasone Sodium Phosphate (Decadron) 20 mg STK-MED ONCE 06/03/18 11:47 06/03/18 11:48 DC Dextrose (Dextrose 50%-Water Syringe) 12.5 gm PRN Q15MIN PRN 06/03/18 15:00 UNV Diphenhydramine HCl (Benadryl) 25 mg PRN Q6HRS PRN 06/03/18 15:00 UNV Docusate Sodium (Colace) 100 mg BID 06/03/18 21:00 UNV Fentanyl Citrate (Fentanyl 2ml Vial) 100 mcg STK-MED ONCE 06/03/18 11:47 06/03/18 11:48 DC Ferrous Sulfate (Feosol) 325 mg BIDWMEALS 06/01/18 08:00 06/03/18 08:34 325 MG Furosemide (Lasix) 40 mg BID92 06/01/18 09:00 06/03/18 08:33 40 MG Glycopyrrolate (Robinul) 1 mg STK-MED ONCE 06/03/18 13:16 06/03/18 13:17 DC Heparin Sodium (Porcine) 5000 unit/Sodium Chloride 505 ml @ 505 mls/hr 1X ONCE 06/03/18 12:00 06/03/18 12:59 DC Hydralazine HCl (Apresoline Inj) 25 mg PRN Q6HRS PRN 05/31/18 23:30 05/31/18 23:51 25 MG Hydralazine HCl (Apresoline) 50 mg TID 05/31/18 21:00 06/03/18 08:34 50 MG Hydromorphone HCl (Dilaudid) 0.5 mg Q3HRS PRN 06/03/18 15:00 UNV Info (PHARMACY MONITORING -- do not chart) 1 each PRN DAILY PRN 06/01/18 08:30 Lidocaine HCl (Lidocaine Pf 2% Vial) 5 ml STK-MED ONCE 06/03/18 11:47 06/03/18 11:48 DC Lidocaine HCl (Xylocaine-Mpf 1% 2ml Vial) 2 ml STK-MED ONCE 06/01/18 08:00 06/03/18 08:55 DC Morphine Sulfate (Morphine Sulfate) 1 mg PRN Q10MIN PRN 06/03/18 07:00 06/04/18 06:59 06/03/18 14:37 1 MG Neostigmine Methylsulfate (Bloxiverz) 10 mg STK-MED ONCE 06/03/18 13:16 06/03/18 13:17 DC Ondansetron HCl (Zofran) 4 mg PRN Q6HRS PRN 06/03/18 15:00 UNV Prochlorperazine Edisylate (Compazine) 5 mg PACU PRN PRN 06/03/18 07:00 06/04/18 06:59 06/03/18 14:37 5 MG Propofol 20 ml @ As Directed STK-MED ONCE 06/03/18 11:47 06/03/18 11:48 DC Ringer's Solution 1,000 ml @ 30 mls/hr Q24H 06/03/18 07:00 06/03/18 08:41 DC Rocuronium [place] (Zemuron) 50 mg STK-MED ONCE 06/03/18 11:47 06/03/18 11:48 DC Sevoflurane (Ultane) 60 ml STK-MED ONCE 06/03/18 13:16 06/03/18 13:17 DC Sodium Chloride 1,000 ml @ 30 mls/hr Q24H 06/03/18 14:47 UNV Sodium Chloride (Normal Saline Flush) 3 ml QSHIFT PRN 06/03/18 15:00 UNV Results All relevant outside records, renal labs, imaging studies, telemetry/EKG's were reviewed. MAGDIEL VOGEL MD Jun 03, 2018 15:00
[2018-06-03] MEDS: ASPIRIN ENTERIC COATED 325 MG TABLET.DR. PO SCH (15:35)
[2018-06-03] MEDS: HYDROmorphone 2 MG/ML VIAL IV PRN (19:20)
[2018-06-03] MEDS: DOCUSATE SODIUM 100 MG CAPSULE. PO SCH (20:44)
[2018-06-03] MEDS: ALPRAZolam 0.25 MG TABLET PO PRN (23:00)
[2018-06-04 03:00] VITALS: BP 111/75
[2018-06-04 07:00] VITALS: BP 119/79
[2018-06-04] MEDS: HYDROmorphone 2 MG/ML VIAL IV PRN ×3 (07:29→21:20)
[2018-06-04] MEDS: CALCIUM CARB/VIT D3 500/200 TABLET. PO SCH ×2 (08:37→17:48)
[2018-06-04] MEDS: CARVEDILOL 12.5 MG TABLET. PO SCH ×2 (08:37→17:47)
[2018-06-04] MEDS: FERROUS SULFATE 325 MG TABLET. PO SCH ×2 (08:37→17:48)
[2018-06-04] MEDS: amLODIPine BESYLATE 10 MG TABLET PO SCH (08:37)
[2018-06-04] MEDS: FUROSEMIDE 40 MG TABLET. PO SCH ×2 (08:37→17:48)
[2018-06-04] MEDS: ASPIRIN ENTERIC COATED 325 MG TABLET.DR. PO SCH (08:37)
[2018-06-04] MEDS: cloNIDine HCL 0.1 MG TABLET PO SCH ×3 (08:37→21:21)
[2018-06-04] MEDS: DOCUSATE SODIUM 100 MG CAPSULE. PO SCH ×2 (08:38→21:19)
[2018-06-04] MEDS: HYDROcodone/APAP 5/325MG 1 TAB TABLET PO PRN ×2 (08:40→17:46)
[2018-06-04] MEDS: CIPROFLOXACIN 0.3% OPHTH SOLUTION 5ML BOTTLE. OU SCH ×4 (08:40→21:19)
[2018-06-04] MEDS: IV NORMAL SALINE 1000ML BAG 1,000 ML IV SCH ×2 (08:40→14:47)
[2018-06-04 08:58] LABS: CALCIUM 8.6 mg/dL (8.5-10.1); CREATININE 7.7 mg/dL (0.7-1.3); GFR 8.9
[2018-06-04 08:59] LABS: POTASSIUM 5.6 mmol/L (3.5-5.1)
[2018-06-04] MEDS ORDERED: IV NORMAL SALINE 1000ML BAG 1,000 ML IV PRN ×2 (09:19)
[2018-06-04] MEDS ORDERED: DIALYSIS PATIENT. MC PRN ×2 (09:30)
--- NOTE | 2018-06-04 10:21 | PDOC ---
PROGRESS NOTES Chief Complaint Chief Complaint New-onset ascites etiology most likely related to hypoalbuminemia. Liver disease work up so far negative. No further work up deemed necessary from the GI stand point of view Status post umbilical hernia repair and with peritoneal dialysis catheter placement. Bacterial conjunctivitis End-stage renal disease on hemodialysis looking to transition to PD Abdominal pain secondary to the ascites, very low suspicion for SBP or other surgical process given the benign nature of his physical exam Essential hypertension currently fairly controlled History of GERD Plan: nephrology for dialysis management Peritoneal dialysis catheter placement done on 2018 ciprofloxacin ophthalmic for conjunctivitis Resume home meds supportive measures. DVT prophylaxis with heparin History of Present Illness History of Present Illness Patient will undergo peritoneal dialysis catheter placement, he feels better after 6 liters of ascitic fluid were removed yesterday. Of fever chills or abdominal pain reported today Vitals Vitals Vital Signs Date Time Temp Pulse Resp B/P (MAP) Pulse Ox O2 Delivery O2 Flow Rate FiO2 06/04/18 09:58 12 91 Nasal Cannula 1.0 06/04/18 08:38 54 119/79 06/04/18 07:00 97.9 97.9 Physical Exam Physical Exam Gen.: chronically ill appearing in no apparent distress Head: Normal shape atraumatic Eyes: Pupils equal reactive to light and accommodation, normal conjunctivae and lids Ears: Normal shape Nose: Normal shape no trauma Mouth: No exudates of the back of throat no thrush no lesions Neck: Supple no JVD no carotid bruit or lymphadenopathy no thyromegaly Chest: Lungs clear to auscultation with good inspiratory effort no crackles rales or rhonchi Cardiovascular: S1-S2 regular rhythm sytolic murmur gallops or rubs Abdomen: Bowel sounds present soft nontender no hepatosplenomegaly appreciated sign significant ascites present Extremities: No clubbing no cyanosis no edema peripheral pulses palpated bilaterally Neurological: Alert awake oriented in person time place and situation, cranial nerves II through XII intact, no motor or sensory deficits appreciated Psych: Appropriate mood, cooperative General: Alert, Oriented X3, Cooperative, No acute distress Heart: Regular rate, Normal S1, Normal S2 Lungs: Clear, Other Abdomen: Soft, Other (distended, dressing in place from paracentesis, reducible umbo hernia) Extremities: No clubbing, No cyanosis Skin: No rashes, No breakdown Labs LABS Laboratory Tests Test 06/04/18 08:00 Sodium Level 135 mmol/L (136-145) Potassium Level 5.6 mmol/L (3.5-5.1) Chloride Level 100 mmol/L (98-107) Carbon Dioxide Level 28 mmol/L (21-32) Anion Gap 7 (6-14) Blood Urea Nitrogen 62 mg/dL (8-26) Creatinine 7.7 mg/dL (0.7-1.3) Estimated GFR (Cockcroft-Gault) 8.9 Glucose Level 136 mg/dL (70-99) Calcium Level 8.6 mg/dL (8.5-10.1) Assessment and Plan Assessmemt and Plan Problems Medical Problems: (1) Dialysis patient Status: Acute Comment Review of Relevant I have reviewed the following items benjamin (where applicable) has been applied. Labs Laboratory Tests Test 06/04/18 08:00 Sodium Level 135 mmol/L (136-145) Potassium Level 5.6 mmol/L (3.5-5.1) Chloride Level 100 mmol/L (98-107) Carbon Dioxide Level 28 mmol/L (21-32) Anion Gap 7 (6-14) Blood Urea Nitrogen 62 mg/dL (8-26) Creatinine 7.7 mg/dL (0.7-1.3) Estimated GFR (Cockcroft-Gault) 8.9 Glucose Level 136 mg/dL (70-99) Calcium Level 8.6 mg/dL (8.5-10.1) Laboratory Tests Test 06/04/18 08:00 Sodium Level 135 mmol/L (136-145) Potassium Level 5.6 mmol/L (3.5-5.1) Chloride Level 100 mmol/L (98-107) Carbon Dioxide Level 28 mmol/L (21-32) Anion Gap 7 (6-14) Blood Urea Nitrogen 62 mg/dL (8-26) Creatinine 7.7 mg/dL (0.7-1.3) Estimated GFR (Cockcroft-Gault) 8.9 Glucose Level 136 mg/dL (70-99) Calcium Level 8.6 mg/dL (8.5-10.1) Medications Current Medications Prochlorperazine Edisylate (Compazine) 5 mg 1X ONCE IV Last administered on at 14:31; Start 05/31/18 at 14:00; Stop 05/31/18 at 14:06; Status DC Morphine Sulfate (Morphine Sulfate) 4 mg 1X ONCE IV Last administered on 14:30; Start 05/31/18 at 14:00; Stop 05/31/18 at 14:06; Status DC Aspirin (Children'S Aspirin) 324 mg 1X ONCE PO Last administered on 05/31/18 15:30; Start 05/31/18 at 15:30; Stop 05/31/18 at 15:31; Status DC Ondansetron HCl (Zofran) 4 mg PRN Q8HRS PRN IV NAUSEA/VOMITING; Start 05/31/18 at 15:45; Stop 06/01/18 at 15:44; Status DC Morphine Sulfate (Morphine Sulfate) 2 mg PRN Q2HR PRN IV PAIN; Start 05/31/18 at 15:45; Stop 06/01/18 at 15:44; Status DC Acetaminophen (Tylenol) 650 mg PRN Q4HRS PRN PO FEVER; Start 05/31/18 at 15:45 ; Stop 06/01/18 at 15:44; Status DC Ciprofloxacin (Ciloxan Ophth) 1 drop QID OU Last administered on 06/04/18 08: 40; Start 05/31/18 at 18:00 Alprazolam (Xanax) 0.25 mg PRN BID PRN PO ANXIETY / AGITATION Last administered on 06/03/18 23:00; Start 05/31/18 at 17:30 Amlodipine Besylate (Norvasc) 10 mg DAILY PO Last administered on 06/04/18 08: 37; Start 06/01/18 at 09:00 Aspirin (Ecotrin) 325 mg DAILYWBKFT PO Last administered on 06/04/18 08:37; Start 06/01/18 at 08:00 Calcium/Vitamin D (Oscal D 500mg/ 200uts) 1 tab BIDWMEALS PO Last administered on 06/04/18 08:37; Start 06/01/18 at 17:00 Carvedilol (Coreg) 12.5 mg BIDWMEALS PO Last administered on 06/04/18 08:37; Start 06/01/18 at 08:00 Clonidine HCl (Catapres) 0.1 mg TID PO Last administered on 06/04/18 08:37; Start 05/31/18 at 21:00 Ferrous Sulfate (Feosol) 325 mg BIDWMEALS PO Last administered on 06/04/18 08: 37; Start 06/01/18 at 08:00 Furosemide (Lasix) 40 mg BID92 PO Last administered on 06/04/18 08:37; Start 06/01/18 at 09:00 Acetaminophen/ Hydrocodone Bitart (Lortab 5/325) 1 tab PRN Q6HRS PRN PO SEVERE PAIN Last administered on 06/03/18 03:38; Start 05/31/18 at 17:30 Hydralazine HCl (Apresoline) 50 mg TID PO Last administered on 06/04/18 08:38 ; Start 05/31/18 at 21:00 Morphine Sulfate (Morphine Sulfate) 2 mg PRN Q2HR PRN IV PAIN Last administered on 06/03/18 15:36; Start 05/31/18 at 17:45 Hydralazine HCl (Apresoline Inj) 25 mg PRN Q6HRS PRN IVP ELEVATED BP, SEE COMMENTS Last administered on 05/31/18 23:51; Start 05/31/18 at 23:30 Lidocaine HCl (Xylocaine-Mpf 1% 2ml Vial) 2 ml STK-MED ONCE .ROUTE ; Start 06/01 at 08:01; Stop 06/01/18 at 08:02; Status DC Sodium Chloride 1,000 ml @ 1,000 mls/hr Q1H PRN IV hypotension; Start 06/01/18 at 08:00; Stop 06/01/18 at 13:59; Status DC Albumin Human 200 ml @ 200 mls/hr 1X PRN PRN IV Hypotension; Start 06/01/18 at 08:00; Stop 06/01/18 at 13:59; Status DC Sodium Chloride 1,000 ml @ 400 mls/hr Q2H30M PRN IV PATENCY; Start 06/01/18 at 08:00; Stop 06/01/18 at 19:59; Status DC Info (PHARMACY MONITORING -- do not chart) 1 each PRN DAILY PRN MC SEE COMMENTS ; Start 06/01/18 at 08:30; Status UNV Info (PHARMACY MONITORING -- do not chart) 1 each PRN DAILY PRN MC SEE COMMENTS ; Start 06/01/18 at 08:30 Lidocaine HCl (Xylocaine-Mpf 1% 2ml Vial) 2 ml 1X ONCE INJ ; Start 06/01/18 at 08:00; Stop 06/01/18 at 08:28; Status DC Albumin Human 100 ml @ As Directed STK-MED ONCE IV ; Start 06/02/18 at 10:51; Stop 06/02/18 at 10:52; Status DC Albumin Human 100 ml @ 100 mls/hr 1X ONCE IV Last administered on 06/02/18at 10:59; Start 06/02/18 at 11:00; Stop 06/02/18 at 11:59; Status DC Ondansetron HCl (Zofran) 4 mg PRN Q6HRS PRN IV NAUSEA/VOMITING; Start 06/03/18 at 07:00; Stop 06/04/18 at 06:59; Status DC Fentanyl Citrate (Fentanyl 2ml Vial) 25 mcg PRN Q5MIN PRN IV MILD PAIN; Start 06/03/18 at 07:00; Stop 06/04/18 at 06:59; Status DC Fentanyl Citrate (Fentanyl 2ml Vial) 50 mcg PRN Q5MIN PRN IV MODERATE TO SEVERE PAIN Last administered on 06/03/18at 14:25; Start 06/03/18 at 07:00; Stop 06/04/18 at 06:59; Status DC Morphine Sulfate (Morphine Sulfate) 1 mg PRN Q10MIN PRN IV SEVERE PAIN Last administered on 06/03/18at 15:06; Start 06/03/18 at 07:00; Stop 06/04/18 at 06:59 ; Status DC Ringer's Solution 1,000 ml @ 30 mls/hr Q24H IV ; Start 06/03/18 at 07:00; Stop 06/03/18 at 08:41; Status DC Lidocaine HCl (Xylocaine-Mpf 1% 2ml Vial) 2 ml PRN 1X PRN ID IV START; Start at 07:00; Stop 06/04/18 at 06:59; Status DC Hydromorphone HCl (Dilaudid) 0.5 mg PRN Q10MIN PRN IV SEV PAIN, Second choice Last administered on 06/04/18at 04:25; Start 06/03/18 at 07:00; Stop 06/04/18 at 06:59; Status DC Prochlorperazine Edisylate (Compazine) 5 mg PACU PRN PRN IV NAUSEA, MRX1 Last administered on 06/03/18at 14:37; Start 06/03/18 at 07:00; Stop 06/04/18 at 06:59 ; Status DC Sodium Chloride 1,000 ml @ 30 mls/hr Q24H IV ; Start 06/03/18 at 08:45 Lidocaine HCl (Xylocaine-Mpf 1% 2ml Vial) 2 ml STK-MED ONCE .ROUTE ; Start 06/01 at 08:00; Stop 06/03/18 at 08:55; Status DC Heparin Sodium (Porcine) 5000 unit/Sodium Chloride 505 ml @ 505 mls/hr 1X ONCE IRR ; Start 06/03/18 at 12:00; Stop 06/03/18 at 12:59; Status DC Bupivacaine HCl/ Epinephrine Bitart (Sensorcain-Mpf Epi 0.5%-[id number]) 30 ml STK -MED ONCE .ROUTE ; Start 06/03/18 at 11:44; Stop 06/03/18 at 11:45; Status DC Fentanyl Citrate (Fentanyl 2ml Vial) 100 mcg STK-MED ONCE .ROUTE ; Start at 11:47; Stop 06/03/18 at 11:48; Status DC Rocuronium [place] (Zemuron) 50 mg STK-MED ONCE .ROUTE ; Start 06/03/18 at 11:47 ; Stop 06/03/18 at 11:48; Status DC Ondansetron HCl (Zofran) 4 mg STK-MED ONCE .ROUTE ; Start 06/03/18 at 11:47; Stop 06/03/18 at 11:48; Status DC Dexamethasone Sodium Phosphate (Decadron) 20 mg STK-MED ONCE .ROUTE ; Start at 11:47; Stop 06/03/18 at 11:48; Status DC Lidocaine HCl (Lidocaine Pf 2% Vial) 5 ml STK-MED ONCE .ROUTE ; Start 06/03/18 at 11:47; Stop 06/03/18 at 11:48; Status DC Propofol 20 ml @ As Directed STK-MED ONCE IV ; Start 06/03/18 at 11:47; Stop at 11:48; Status DC Cefazolin Sodium/ Dextrose 50 ml @ As Directed STK-MED ONCE IV ; Start 06/03/18 at 12:03; Stop 06/03/18 at 12:04; Status DC Neostigmine Methylsulfate (Bloxiverz) 10 mg STK-MED ONCE .ROUTE ; Start at 13:16; Stop 06/03/18 at 13:17; Status DC Sevoflurane (Ultane) 60 ml STK-MED ONCE IH ; Start 06/03/18 at 13:16; Stop 06/03 at 13:17; Status DC Glycopyrrolate (Robinul) 1 mg STK-MED ONCE .ROUTE ; Start 06/03/18 at 13:16; Stop 06/03/18 at 13:17; Status DC Cefazolin Sodium/ Dextrose 50 ml @ 100 mls/hr 1X ONCE IV Last administered on 06/03/18at 12:29; Start 06/03/18 at 14:15; Stop 06/03/18 at 14:44; Status DC Diphenhydramine HCl (Benadryl) 25 mg PRN Q6HRS PRN PO ITCHING; Start 06/03/18 at 15:00 Sodium Chloride (Normal Saline Flush) 3 ml QSHIFT PRN IV AFTER MEDS AND BLOOD DRAWS; Start 06/03/18 at 15:00 Sodium Chloride 1,000 ml @ 30 mls/hr Q24H IV ; Start 06/03/18 at 14:47 Dextrose (Dextrose 50%-Water Syringe) 12.5 gm PRN Q15MIN PRN IV SEE COMMENTS; Start 06/03/18 at 15:00 Acetaminophen/ Hydrocodone Bitart (Lortab 5/325) 1 tab PRN Q4HRS PRN PO MILD PAIN Last administered on 06/04/18at 08:40; Start 06/03/18 at 15:00 Hydromorphone HCl (Dilaudid) 0.5 mg PRN Q3HRS PRN IV PAIN Last administered on 06/04/18at 07:29; Start 06/03/18 at 15:00 Docusate Sodium (Colace) 100 mg BID PO Last administered on 06/04/18at 08:38; Start 06/03/18 at 21:00 Ondansetron HCl (Zofran) 4 mg PRN Q6HRS PRN IV NAUESA, 1ST CHOICE; Start at 15:00 Sodium Chloride 1,000 ml @ 1,000 mls/hr Q1H PRN IV hypotension; Start 06/04/18 at 09:19; Stop 06/04/18 at 15:18 Sodium Chloride 1,000 ml @ 400 mls/hr Q2H30M PRN IV PATENCY; Start 06/04/18 at 09:19; Stop 06/04/18 at 21:18 Info (PHARMACY MONITORING -- do not chart) 1 each PRN DAILY PRN MC SEE COMMENTS ; Start 06/04/18 at 09:30; Status UNV Info (PHARMACY MONITORING -- do not chart) 1 each PRN DAILY PRN MC SEE COMMENTS ; Start 06/04/18 at 09:30; Status UNV Active Scripts Active Hydrocodone-Apap 5-325 (Hydrocodone Bit/Acetaminophen) 1 Each Tablet 1 Tab PO PRN Q6HRS PRN Furosemide 40 Mg Tablet 40 Mg PO BID92 30 Days Oyster Shell 500 Mg + Vit D Tb (Calcium Carbonate/Vitamin D3) 1 Each Tablet 1 Tab PO BIDWMEALS 30 Days Alprazolam 0.25 Mg Tablet 0.25 Mg PO PRN BID PRN 10 Days Feosol (Ferrous Sulfate) 325 Mg Tablet 325 Mg PO BIDWMEALS 30 Days Aspirin Ec (Aspirin) 325 Mg Tablet.dr 325 Mg PO DAILYWBKFT 30 Days Reported Amlodipine Besylate 10 Mg Tablet 10 Mg PO DAILY Carvedilol (Carvedilol) 12.5 Mg Tablet 12.5 Mg PO BIDWMEALS Hydralazine Hcl 50 Mg Tablet 1 Tab PO TID Clonidine Hcl 0.1 Mg Tablet 0.1 Mg PO TID Vitals/I & O Vital Sign - Last 24 Hours 06/03/18 06/03/18 06/03/18 06/03/18 11:21 13:39 13:39 13:54 Temp 97.2 97.0 97.2 97.0 Pulse 55 52 50 Resp 13 20 20 B/P (MAP) 155/97 163/102 126/83 Pulse Ox 97 100 100 O2 Delivery Room Air Mask Simple Mask Simple Mask O2 Flow Rate 10 10 10 06/03/18 06/03/18 06/03/18 06/03/18 14:03 14:09 14:24 14:25 Pulse 52 53 Resp 20 20 20 20 B/P (MAP) 123/81 111/77 Pulse Ox 100 100 99 95 O2 Delivery Simple Mask Simple Mask Room Air Room Air O2 Flow Rate 10.0 10 06/03/18 06/03/18 06/03/18 06/03/18 14:37 14:39 14:53 15:06 Pulse 54 52 Resp 20 20 20 20 B/P (MAP) 120/90 143/97 Pulse Ox 99 92 90 O2 Delivery Room Air Room Air Room Air Nasal Cannula O2 Flow Rate 2.0 06/03/18 06/03/18 06/03/18 06/03/18 15:08 15:30 15:34 15:35 Pulse 52 54 54 Resp 20 20 B/P (MAP) 135/92 133/83 (100) 133/83 Pulse Ox 97 98 O2 Delivery Nasal Cannula Nasal Cannula O2 Flow Rate 2 2.0 06/03/18 06/03/18 06/03/18 06/03/18 15:35 15:36 15:36 15:45 Pulse 54 56 Resp 20 20 B/P (MAP) 133/83 146/89 (108) Pulse Ox 98 98 O2 Delivery Nasal Cannula Nasal Cannula O2 Flow Rate 2.0 2.0 06/03/18 06/03/18 06/03/18 06/03/18 16:00 16:06 16:15 16:30 Pulse 56 56 56 Resp 18 B/P (MAP) 138/85 (102) 148/99 (115) 154/107 (123) Pulse Ox 98 O2 Delivery Nasal Cannula O2 Flow Rate 2.0 06/03/18 06/03/18 06/03/18 06/03/18 17:00 17:00 19:20 19:30 Pulse 54 61 B/P (MAP) 135/87 151/98 (115) O2 Delivery Room Air Nasal Cannula O2 Flow Rate 2.0 06/03/18 06/03/18 06/03/18 06/03/18 19:55 20:44 20:45 23:00 Temp 97.8 97.7 97.8 97.7 Pulse 64 64 64 61 Resp 17 18 B/P (MAP) 121/60 (80) 121/60 121/60 107/70 (82) Pulse Ox 98 98 O2 Delivery Nasal Cannula Nasal Cannula O2 Flow Rate 1.0 1.0 06/03/18 06/04/18 06/04/18 06/04/18 23:00 03:00 04:25 04:55 Temp 97.7 97.7 Pulse 58 Resp 18 B/P (MAP) 111/75 (87) Pulse Ox 91 O2 Delivery Room Air Room Air Room Air Room Air 06/04/18 06/04/18 06/04/18 06/04/18 07:00 07:29 07:37 08:37 Temp 97.9 97.9 Pulse 54 54 Resp 20 18 B/P (MAP) 119/79 (92) 119/79 Pulse Ox 92 91 O2 Delivery Nasal Cannula Nasal Cannula Nasal Cannula O2 Flow Rate 1.0 1.0 1.0 06/04/18 06/04/18 06/04/18 06/04/18 08:37 08:37 08:38 08:40 Pulse 54 54 54 Resp 20 B/P (MAP) 119/79 119/79 119/79 Pulse Ox 91 O2 Delivery Nasal Cannula O2 Flow Rate 1.0 06/04/18 06/04/18 08:42 09:58 Resp 12 Pulse Ox 91 91 O2 Delivery Nasal Cannula Nasal Cannula O2 Flow Rate 1.0 1.0 Intake and Output 06/03/18 06/03/18 06/04/18 15:00 23:00 07:00 Intake Total 500 ml 150 ml 350 ml Output Total 160 ml Balance 340 ml 150 ml 350 ml ZAK COTTO MD Jun 04, 2018 10:21
[2018-06-04 10:55] VITALS: BP 102/64
--- NOTE | 2018-06-04 12:54 | PDOC ---
G I PROGRESS NOTE Subjective Feeling better today after PD placement/evacuation of 6+ liters of ascites. Physical Exam Lungs clear. RRR Abdomen softer; dressing in place. Review of Relevant I have reviewed the following items benjamin (where applicable) has been applied. Labs Laboratory Tests Test 06/04/18 08:00 Sodium Level 135 mmol/L (136-145) Potassium Level 5.6 mmol/L (3.5-5.1) Chloride Level 100 mmol/L (98-107) Carbon Dioxide Level 28 mmol/L (21-32) Anion Gap 7 (6-14) Blood Urea Nitrogen 62 mg/dL (8-26) Creatinine 7.7 mg/dL (0.7-1.3) Estimated GFR (Cockcroft-Gault) 8.9 Glucose Level 136 mg/dL (70-99) Calcium Level 8.6 mg/dL (8.5-10.1) Laboratory Tests Test 06/04/18 08:00 Sodium Level 135 mmol/L (136-145) Potassium Level 5.6 mmol/L (3.5-5.1) Chloride Level 100 mmol/L (98-107) Carbon Dioxide Level 28 mmol/L (21-32) Anion Gap 7 (6-14) Blood Urea Nitrogen 62 mg/dL (8-26) Creatinine 7.7 mg/dL (0.7-1.3) Estimated GFR (Cockcroft-Gault) 8.9 Glucose Level 136 mg/dL (70-99) Calcium Level 8.6 mg/dL (8.5-10.1) Vitals/I & O Vital Sign - Last 24 Hours 06/03/18 06/03/18 06/03/18 06/03/18 13:39 13:39 13:54 14:03 Temp 97.0 97.0 Pulse 52 50 Resp 20 20 20 B/P (MAP) 163/102 126/83 Pulse Ox 100 100 100 O2 Delivery Mask Simple Mask Simple Mask Simple Mask O2 Flow Rate 10 10 10 10.0 06/03/18 06/03/18 06/03/18 06/03/18 14:09 14:24 14:25 14:37 Pulse 52 53 Resp 20 20 20 20 B/P (MAP) 123/81 111/77 Pulse Ox 100 99 95 99 O2 Delivery Simple Mask Room Air Room Air Room Air O2 Flow Rate 10 06/03/18 06/03/18 06/03/18 06/03/18 14:39 14:53 15:06 15:08 Pulse 54 52 52 Resp 20 20 20 20 B/P (MAP) 120/90 143/97 135/92 Pulse Ox 92 90 97 O2 Delivery Room Air Room Air Nasal Cannula Nasal Cannula O2 Flow Rate 2.0 2 06/03/18 06/03/18 06/03/18 06/03/18 15:30 15:34 15:35 15:35 Pulse 54 54 54 Resp 20 B/P (MAP) 133/83 (100) 133/83 133/83 Pulse Ox 98 O2 Delivery Nasal Cannula O2 Flow Rate 2.0 06/03/18 06/03/18 06/03/18 06/03/18 15:36 15:36 15:45 16:00 Pulse 56 56 Resp 20 20 B/P (MAP) 146/89 (108) 138/85 (102) Pulse Ox 98 98 O2 Delivery Nasal Cannula Nasal Cannula O2 Flow Rate 2.0 2.0 06/03/18 06/03/18 06/03/18 06/03/18 16:06 16:15 16:30 17:00 Pulse 56 56 54 Resp 18 B/P (MAP) 148/99 (115) 154/107 (123) 135/87 Pulse Ox 98 O2 Delivery Nasal Cannula O2 Flow Rate 2.0 06/03/18 06/03/18 06/03/18 06/03/18 17:00 19:20 19:30 19:55 Temp 97.8 97.8 Pulse 61 64 Resp 17 B/P (MAP) 151/98 (115) 121/60 (80) Pulse Ox 98 O2 Delivery Room Air Nasal Cannula Nasal Cannula O2 Flow Rate 2.0 1.0 06/03/18 06/03/18 06/03/18 06/03/18 20:44 20:45 23:00 23:00 Temp 97.7 97.7 Pulse 64 64 61 Resp 18 B/P (MAP) 121/60 121/60 107/70 (82) Pulse Ox 98 O2 Delivery Nasal Cannula Room Air O2 Flow Rate 1.0 06/04/18 06/04/18 06/04/18 06/04/18 03:00 04:25 04:55 07:00 Temp 97.7 97.9 97.7 97.9 Pulse 58 54 Resp 18 20 B/P (MAP) 111/75 (87) 119/79 (92) Pulse Ox 91 92 O2 Delivery Room Air Room Air Room Air Nasal Cannula O2 Flow Rate 1.0 06/04/18 06/04/18 06/04/18 06/04/18 07:29 07:37 08:37 08:37 Pulse 54 54 Resp 18 B/P (MAP) 119/79 119/79 Pulse Ox 91 O2 Delivery Nasal Cannula Nasal Cannula O2 Flow Rate 1.0 1.0 06/04/18 06/04/18 06/04/18 06/04/18 08:37 08:38 08:40 08:42 Pulse 54 54 Resp 20 B/P (MAP) 119/79 119/79 Pulse Ox 91 91 O2 Delivery Nasal Cannula Nasal Cannula O2 Flow Rate 1.0 1.0 06/04/18 06/04/18 09:58 10:55 Temp 97.8 97.8 Pulse 53 Resp 12 20 B/P (MAP) 102/64 (77) Pulse Ox 91 91 O2 Delivery Nasal Cannula Nasal Cannula O2 Flow Rate 1.0 1.0 Intake and Output 06/03/18 06/03/18 06/04/18 14:59 22:59 06:59 Intake Total 500 ml 150 ml 350 ml Output Total 160 ml Balance 340 ml 150 ml 350 ml Problem List Problems Medical Problems: (1) Dialysis patient Status: Acute Assessment Ascites, suspect "nephrogenic". Stable post-PD catheter insertion. Plan of Care: Continue current Tx, Mgmt Plan of Care Note Observe for recurrent ascites. MARIA ELENA ALANIS MD Jun 04, 2018 12:54
--- NOTE | 2018-06-04 13:34 | PDOC ---
Dialysis Progress Note Dialysis Note Dialysis Note Seen on Hemodialysis, tolerating treatment Well Vitals on Hemodialysis: 111/71 53 afeb General Appearance: Awake: Alert Oriented x 3 Neck: No JVD or JVP Chest: CTA John Heart: S1 S2 Abdomen - Soft NTND Extremities - No Edema ESRD: Dialysis as below F 180 NR 3.5 Hrs 2 K 2.5 Ca 140 Na 3 5 HC03 Qb 350 + Qd 500+ Heparin 0 Units Uf 2 Kgs or to dry weight as tolerated May give 25-50 gms of 25% Albumin if needed to maintain Hemodynamic stability Treatment plan reviewed and discussed with apparel embroidery digitizer Vitals Vital Signs Vital Signs Date Time Temp Pulse Resp B/P (MAP) Pulse Ox O2 Delivery O2 Flow Rate FiO2 06/04/18 10:55 97.8 53 20 102/64 (77) 91 Nasal Cannula 1.0 97.8 Labs Last Labs Laboratory Tests Test 06/04/18 08:00 Sodium Level 135 mmol/L (136-145) Potassium Level 5.6 mmol/L (3.5-5.1) Chloride Level 100 mmol/L (98-107) Carbon Dioxide Level 28 mmol/L (21-32) Anion Gap 7 (6-14) Blood Urea Nitrogen 62 mg/dL (8-26) Creatinine 7.7 mg/dL (0.7-1.3) Estimated GFR (Cockcroft-Gault) 8.9 Glucose Level 136 mg/dL (70-99) Calcium Level 8.6 mg/dL (8.5-10.1) Laboratory Tests Test 06/04/18 08:00 Sodium Level 135 mmol/L (136-145) Potassium Level 5.6 mmol/L (3.5-5.1) Chloride Level 100 mmol/L (98-107) Carbon Dioxide Level 28 mmol/L (21-32) Anion Gap 7 (6-14) Blood Urea Nitrogen 62 mg/dL (8-26) Creatinine 7.7 mg/dL (0.7-1.3) Estimated GFR (Cockcroft-Gault) 8.9 Glucose Level 136 mg/dL (70-99) Calcium Level 8.6 mg/dL (8.5-10.1) Assessment Assessment Problems Medical Problems: (1) Dialysis patient Status: Acute Plan Plan of Care Problems Medical Problems: (1) Dialysis patient Status: Acute MIKIE CHAPPELL MD Jun 04, 2018 13:34
--- NOTE | 2018-06-04 14:39 | PDOC ---
SURGICAL PROGRESS NOTE Subjective Pt seen on dialysis, mild soreness Vital Signs Vital Signs Date Time Temp Pulse Resp B/P (MAP) Pulse Ox O2 Delivery O2 Flow Rate FiO2 06/04/18 10:55 97.8 53 20 102/64 (77) 91 Nasal Cannula 1.0 97.8 I&O Intake and Output 06/04/18 07:00 Intake Total 1000 ml Output Total 160 ml Balance 840 ml Intake Oral 500 ml IV Total 500 ml Output Urine Total 150 ml Estimated Blood Loss 10 ml General: Alert, Oriented X3, Cooperative, No acute distress Abdomen: Soft, No tenderness Labs Laboratory Tests Test 06/04/18 08:00 Sodium Level 135 mmol/L (136-145) Potassium Level 5.6 mmol/L (3.5-5.1) Chloride Level 100 mmol/L (98-107) Carbon Dioxide Level 28 mmol/L (21-32) Anion Gap 7 (6-14) Blood Urea Nitrogen 62 mg/dL (8-26) Creatinine 7.7 mg/dL (0.7-1.3) Estimated GFR (Cockcroft-Gault) 8.9 Glucose Level 136 mg/dL (70-99) Calcium Level 8.6 mg/dL (8.5-10.1) Laboratory Tests Test 06/04/18 08:00 Sodium Level 135 mmol/L (136-145) Potassium Level 5.6 mmol/L (3.5-5.1) Chloride Level 100 mmol/L (98-107) Carbon Dioxide Level 28 mmol/L (21-32) Anion Gap 7 (6-14) Blood Urea Nitrogen 62 mg/dL (8-26) Creatinine 7.7 mg/dL (0.7-1.3) Estimated GFR (Cockcroft-Gault) 8.9 Glucose Level 136 mg/dL (70-99) Calcium Level 8.6 mg/dL (8.5-10.1) Problem List Problems Medical Problems: (1) Dialysis patient Status: Acute Assessment/Plan s/p hernia repair cont supportive care RICHARD FRANCO MD Jun 04, 2018 14:39
[2018-06-04 19:45] VITALS: BP 101/58
[2018-06-04] MEDS: ALPRAZolam 0.25 MG TABLET PO PRN (21:19)
[2018-06-04 23:05] VITALS: BP 95/67
[2018-06-05 03:00] VITALS: BP 105/64
[2018-06-05 07:52] VITALS: BP 118/81
[2018-06-05] MEDS: amLODIPine BESYLATE 10 MG TABLET PO SCH (08:13)
[2018-06-05] MEDS: cloNIDine HCL 0.1 MG TABLET PO SCH ×3 (08:13→21:00)
[2018-06-05] MEDS: HYDROmorphone 2 MG/ML VIAL IV PRN ×4 (08:13→21:30)
[2018-06-05] MEDS: DOCUSATE SODIUM 100 MG CAPSULE. PO SCH ×2 (08:13→21:25)
[2018-06-05] MEDS: FERROUS SULFATE 325 MG TABLET. PO SCH ×2 (08:14→17:24)
[2018-06-05] MEDS: CARVEDILOL 12.5 MG TABLET. PO SCH ×2 (08:14→17:25)
[2018-06-05] MEDS: ASPIRIN ENTERIC COATED 325 MG TABLET.DR. PO SCH (08:14)
[2018-06-05] MEDS: FUROSEMIDE 40 MG TABLET. PO SCH ×2 (08:14→13:51)
[2018-06-05] MEDS: CALCIUM CARB/VIT D3 500/200 TABLET. PO SCH ×2 (08:14→17:24)
[2018-06-05] MEDS: IV NORMAL SALINE 1000ML BAG 1,000 ML IV SCH ×2 (08:17→14:47)
[2018-06-05] MEDS: CIPROFLOXACIN 0.3% OPHTH SOLUTION 5ML BOTTLE. OU SCH ×4 (08:17→21:27)
[2018-06-05 11:08] VITALS: BP 118/77
--- NOTE | 2018-06-05 12:38 | PDOC ---
G I PROGRESS NOTE Subjective Asleep, not awakened. Objective No issues mentioned by staff. Physical Exam No PE. Review of Relevant I have reviewed the following items benjamin (where applicable) has been applied. Labs Laboratory Tests Test 06/04/18 08:00 Sodium Level 135 mmol/L (136-145) Potassium Level 5.6 mmol/L (3.5-5.1) Chloride Level 100 mmol/L (98-107) Carbon Dioxide Level 28 mmol/L (21-32) Anion Gap 7 (6-14) Blood Urea Nitrogen 62 mg/dL (8-26) Creatinine 7.7 mg/dL (0.7-1.3) Estimated GFR (Cockcroft-Gault) 8.9 Glucose Level 136 mg/dL (70-99) Calcium Level 8.6 mg/dL (8.5-10.1) Vitals/I & O Vital Sign - Last 24 Hours 06/04/18 06/04/18 06/04/18 06/04/18 17:46 17:46 17:47 17:47 Pulse 53 53 Resp 18 18 B/P (MAP) 102/64 102/64 Pulse Ox 91 91 O2 Delivery Nasal Cannula Nasal Cannula O2 Flow Rate 1.0 1.0 06/04/18 06/04/18 06/04/18 06/04/18 17:47 18:50 19:45 20:19 Temp 98.1 98.1 Pulse 53 56 Resp 17 B/P (MAP) 102/64 101/58 (72) Pulse Ox 91 95 O2 Delivery Nasal Cannula Room Air Nasal Cannula O2 Flow Rate 1.0 2.0 06/04/18 06/04/18 06/04/18 06/04/18 21:00 21:20 21:21 23:05 Temp 97.9 97.9 Pulse 47 51 47 Resp 17 B/P (MAP) 95/67 109/64 95/67 (76) Pulse Ox 96 O2 Delivery Room Air Room Air 06/05/18 06/05/18 06/05/18 06/05/18 03:00 07:52 08:00 08:13 Temp 97.7 98.1 97.7 98.1 Pulse 52 50 50 Resp 16 16 B/P (MAP) 105/64 (78) 118/81 (93) 118/81 Pulse Ox 96 96 O2 Delivery Room Air Room Air Nasal Cannula O2 Flow Rate 1.0 06/05/18 06/05/18 06/05/18 06/05/18 08:13 08:13 08:14 08:14 Pulse 50 50 50 Resp 18 B/P (MAP) 118/81 118/81 118/81 Pulse Ox 96 O2 Delivery Nasal Cannula O2 Flow Rate 1.0 06/05/18 06/05/18 08:49 11:08 Temp 97.9 97.9 Pulse 56 Resp 18 16 B/P (MAP) 118/77 (91) Pulse Ox 96 95 O2 Delivery Nasal Cannula Room Air O2 Flow Rate 1.0 Intake and Output 06/04/18 06/04/18 06/05/18 14:59 22:59 06:59 Intake Total 150 ml 200 ml Output Total 300 ml 250 ml Balance -150 ml -50 ml Problem List Problems Medical Problems: (1) Dialysis patient Status: Acute Assessment Post-PD catheter placement/hernia repair. Ascites, not likely from portal HTN. Plan of Care: Continue current Tx, Mgmt MARIA ELENA ALANIS MD Jun 05, 2018 12:38
--- NOTE | 2018-06-05 13:35 | PDOC ---
SURGICAL PROGRESS NOTE Subjective Pt with c/o soreness, but otherwise doing well Vital Signs Vital Signs Date Time Temp Pulse Resp B/P (MAP) Pulse Ox O2 Delivery O2 Flow Rate FiO2 06/05/18 11:08 97.9 56 16 118/77 (91) 95 Room Air 97.9 06/05/18 08:49 1.0 I&O Intake and Output 06/05/18 07:00 Intake Total 350 ml Output Total 550 ml Balance -200 ml Intake Oral 350 ml Output Urine Total 550 ml # Voids 1 General: Alert, Oriented X3, Cooperative, No acute distress Abdomen: Soft, Other (dressing intact) Labs Laboratory Tests Test 06/04/18 08:00 Sodium Level 135 mmol/L (136-145) Potassium Level 5.6 mmol/L (3.5-5.1) Chloride Level 100 mmol/L (98-107) Carbon Dioxide Level 28 mmol/L (21-32) Anion Gap 7 (6-14) Blood Urea Nitrogen 62 mg/dL (8-26) Creatinine 7.7 mg/dL (0.7-1.3) Estimated GFR (Cockcroft-Gault) 8.9 Glucose Level 136 mg/dL (70-99) Calcium Level 8.6 mg/dL (8.5-10.1) Problem List Problems Medical Problems: (1) Dialysis patient Status: Acute Assessment/Plan s/p hernia repair and PD adjustment ADAT and pain control RICHARD FRANCO MD Jun 05, 2018 13:35
--- NOTE | 2018-06-05 13:38 | PDOC ---
PROGRESS NOTES Chief Complaint Chief Complaint New-onset ascites etiology most likely related to hypoalbuminemia. Liver disease work up so far negative. No further work up deemed necessary from the GI stand point of view Status post umbilical hernia repair and with peritoneal dialysis catheter placement. Bacterial conjunctivitis End-stage renal disease on hemodialysis looking to transition to PD Abdominal pain secondary to the ascites, very low suspicion for SBP or other surgical process given the benign nature of his physical exam Essential hypertension currently fairly controlled History of GERD Plan: nephrology for dialysis management Peritoneal dialysis catheter placement done on 2018 ciprofloxacin ophthalmic for conjunctivitis Resume home meds supportive measures. DVT prophylaxis with heparin History of Present Illness History of Present Illness Patient complaining of abdominal discomfort most likely secondary to his underlying ascites. No signs of infection on his new peritoneal dialysis catheter reassurances been provided Vitals Vitals Vital Signs Date Time Temp Pulse Resp B/P (MAP) Pulse Ox O2 Delivery O2 Flow Rate FiO2 06/05/18 11:08 97.9 56 16 118/77 (91) 95 Room Air 97.9 06/05/18 08:49 1.0 Physical Exam Physical Exam Gen.: chronically ill appearing in no apparent distress Head: Normal shape atraumatic Eyes: Pupils equal reactive to light and accommodation, normal conjunctivae and lids Ears: Normal shape Nose: Normal shape no trauma Mouth: No exudates of the back of throat no thrush no lesions Neck: Supple no JVD no carotid bruit or lymphadenopathy no thyromegaly Chest: Lungs clear to auscultation with good inspiratory effort no crackles rales or rhonchi Cardiovascular: S1-S2 regular rhythm sytolic murmur gallops or rubs Abdomen: Bowel sounds present soft nontender no hepatosplenomegaly appreciated sign significant ascites present Extremities: No clubbing no cyanosis no edema peripheral pulses palpated bilaterally Neurological: Alert awake oriented in person time place and situation, cranial nerves II through XII intact, no motor or sensory deficits appreciated Psych: Appropriate mood, cooperative General: Alert, Oriented X3, Cooperative, No acute distress Heart: Regular rate, Normal S1, Normal S2 Lungs: Clear, Other Abdomen: Soft, Other (dressing intact) Extremities: No clubbing, No cyanosis Skin: No rashes, No breakdown Review of Systems Review of Systems Pertinent as per history of present illness otherwise 14 point review of system is negative Assessment and Plan Assessmemt and Plan Problems Medical Problems: (1) Dialysis patient Status: Acute Comment Review of Relevant I have reviewed the following items benjamin (where applicable) has been applied. Labs Laboratory Tests Test 06/04/18 08:00 Sodium Level 135 mmol/L (136-145) Potassium Level 5.6 mmol/L (3.5-5.1) Chloride Level 100 mmol/L (98-107) Carbon Dioxide Level 28 mmol/L (21-32) Anion Gap 7 (6-14) Blood Urea Nitrogen 62 mg/dL (8-26) Creatinine 7.7 mg/dL (0.7-1.3) Estimated GFR (Cockcroft-Gault) 8.9 Glucose Level 136 mg/dL (70-99) Calcium Level 8.6 mg/dL (8.5-10.1) Medications Current Medications Prochlorperazine Edisylate (Compazine) 5 mg 1X ONCE IV Last administered on at 14:31; Start 05/31/18 at 14:00; Stop 05/31/18 at 14:06; Status DC Morphine Sulfate (Morphine Sulfate) 4 mg 1X ONCE IV Last administered on at 14:30; Start 05/31/18 at 14:00; Stop 05/31/18 at 14:06; Status DC Aspirin (Children'S Aspirin) 324 mg 1X ONCE PO Last administered on 05/31/18at 15:30; Start 05/31/18 at 15:30; Stop 05/31/18 at 15:31; Status DC Ondansetron HCl (Zofran) 4 mg PRN Q8HRS PRN IV NAUSEA/VOMITING; Start 05/31/18 at 15:45; Stop 06/01/18 at 15:44; Status DC Morphine Sulfate (Morphine Sulfate) 2 mg PRN Q2HR PRN IV PAIN; Start 05/31/18 at 15:45; Stop 06/01/18 at 15:44; Status DC Acetaminophen (Tylenol) 650 mg PRN Q4HRS PRN PO FEVER; Start 05/31/18 at 15:45 ; Stop 06/01/18 at 15:44; Status DC Ciprofloxacin (Ciloxan Ophth) 1 drop QID OU Last administered on 06/05/18at 08: 17; Start 05/31/18 at 18:00 Alprazolam (Xanax) 0.25 mg PRN BID PRN PO ANXIETY / AGITATION Last administered on 06/04/18 21:19; Start 05/31/18 at 17:30 Amlodipine Besylate (Norvasc) 10 mg DAILY PO Last administered on 06/05/18 08: 13; Start 06/01/18 at 09:00 Aspirin (Ecotrin) 325 mg DAILYWBKFT PO Last administered on 06/05/18 08:14; Start 06/01/18 at 08:00 Calcium/Vitamin D (Oscal D 500mg/ 200uts) 1 tab BIDWMEALS PO Last administered on 06/05/18 08:14; Start 06/01/18 at 17:00 Carvedilol (Coreg) 12.5 mg BIDWMEALS PO Last administered on 06/05/18 08:14; Start 06/01/18 at 08:00 Clonidine HCl (Catapres) 0.1 mg TID PO Last administered on 06/05/18 08:13; Start 05/31/18 at 21:00 Ferrous Sulfate (Feosol) 325 mg BIDWMEALS PO Last administered on 06/05/18 08: 14; Start 06/01/18 at 08:00 Furosemide (Lasix) 40 mg BID92 PO Last administered on 06/05/18 08:14; Start 06/01/18 at 09:00 Acetaminophen/ Hydrocodone Bitart (Lortab 5/325) 1 tab PRN Q6HRS PRN PO SEVERE PAIN Last administered on 06/03/18 03:38; Start 05/31/18 at 17:30 Hydralazine HCl (Apresoline) 50 mg TID PO Last administered on 06/05/18 08:14 ; Start 05/31/18 at 21:00 Morphine Sulfate (Morphine Sulfate) 2 mg PRN Q2HR PRN IV PAIN Last administered on 06/03/18 15:36; Start 05/31/18 at 17:45 Hydralazine HCl (Apresoline Inj) 25 mg PRN Q6HRS PRN IVP ELEVATED BP, SEE COMMENTS Last administered on 05/31/18 23:51; Start 05/31/18 at 23:30 Lidocaine HCl (Xylocaine-Mpf 1% 2ml Vial) 2 ml STK-MED ONCE .ROUTE ; Start 06/01 at 08:01; Stop 06/01/18 at 08:02; Status DC Sodium Chloride 1,000 ml @ 1,000 mls/hr Q1H PRN IV hypotension; Start 06/01/18 at 08:00; Stop 06/01/18 at 13:59; Status DC Albumin Human 200 ml @ 200 mls/hr 1X PRN PRN IV Hypotension; Start 06/01/18 at 08:00; Stop 06/01/18 at 13:59; Status DC Sodium Chloride 1,000 ml @ 400 mls/hr Q2H30M PRN IV PATENCY; Start 06/01/18 at 08:00; Stop 06/01/18 at 19:59; Status DC Info (PHARMACY MONITORING -- do not chart) 1 each PRN DAILY PRN MC SEE COMMENTS ; Start 06/01/18 at 08:30; Status UNV Info (PHARMACY MONITORING -- do not chart) 1 each PRN DAILY PRN MC SEE COMMENTS ; Start 06/01/18 at 08:30 Lidocaine HCl (Xylocaine-Mpf 1% 2ml Vial) 2 ml 1X ONCE INJ ; Start 06/01/18 at 08:00; Stop 06/01/18 at 08:28; Status DC Albumin Human 100 ml @ As Directed STK-MED ONCE IV ; Start 06/02/18 at 10:51; Stop 06/02/18 at 10:52; Status DC Albumin Human 100 ml @ 100 mls/hr 1X ONCE IV Last administered on 06/02/18at 10:59; Start 06/02/18 at 11:00; Stop 06/02/18 at 11:59; Status DC Ondansetron HCl (Zofran) 4 mg PRN Q6HRS PRN IV NAUSEA/VOMITING; Start 06/03/18 at 07:00; Stop 06/04/18 at 06:59; Status DC Fentanyl Citrate (Fentanyl 2ml Vial) 25 mcg PRN Q5MIN PRN IV MILD PAIN; Start 06/03/18 at 07:00; Stop 06/04/18 at 06:59; Status DC Fentanyl Citrate (Fentanyl 2ml Vial) 50 mcg PRN Q5MIN PRN IV MODERATE TO SEVERE PAIN Last administered on 06/03/18at 14:25; Start 06/03/18 at 07:00; Stop 06/04/18 at 06:59; Status DC Morphine Sulfate (Morphine Sulfate) 1 mg PRN Q10MIN PRN IV SEVERE PAIN Last administered on 06/03/18at 15:06; Start 06/03/18 at 07:00; Stop 06/04/18 at 06:59 ; Status DC Ringer's Solution 1,000 ml @ 30 mls/hr Q24H IV ; Start 06/03/18 at 07:00; Stop 06/03/18 at 08:41; Status DC Lidocaine HCl (Xylocaine-Mpf 1% 2ml Vial) 2 ml PRN 1X PRN ID IV START; Start at 07:00; Stop 06/04/18 at 06:59; Status DC Hydromorphone HCl (Dilaudid) 0.5 mg PRN Q10MIN PRN IV SEV PAIN, Second choice Last administered on 06/04/18at 04:25; Start 06/03/18 at 07:00; Stop 06/04/18 at 06:59; Status DC Prochlorperazine Edisylate (Compazine) 5 mg PACU PRN PRN IV NAUSEA, MRX1 Last administered on 06/03/18at 14:37; Start 06/03/18 at 07:00; Stop 06/04/18 at 06:59 ; Status DC Sodium Chloride 1,000 ml @ 30 mls/hr Q24H IV ; Start 06/03/18 at 08:45 Lidocaine HCl (Xylocaine-Mpf 1% 2ml Vial) 2 ml STK-MED ONCE .ROUTE ; Start 06/01 at 08:00; Stop 06/03/18 at 08:55; Status DC Heparin Sodium (Porcine) 5000 unit/Sodium Chloride 505 ml @ 505 mls/hr 1X ONCE IRR ; Start 06/03/18 at 12:00; Stop 06/03/18 at 12:59; Status DC Bupivacaine HCl/ Epinephrine Bitart (Sensorcain-Mpf Epi 0.5%-[id number]) 30 ml STK -MED ONCE .ROUTE ; Start 06/03/18 at 11:44; Stop 06/03/18 at 11:45; Status DC Fentanyl Citrate (Fentanyl 2ml Vial) 100 mcg STK-MED ONCE .ROUTE ; Start at 11:47; Stop 06/03/18 at 11:48; Status DC Rocuronium [place] (Zemuron) 50 mg STK-MED ONCE .ROUTE ; Start 06/03/18 at 11:47 ; Stop 06/03/18 at 11:48; Status DC Ondansetron HCl (Zofran) 4 mg STK-MED ONCE .ROUTE ; Start 06/03/18 at 11:47; Stop 06/03/18 at 11:48; Status DC Dexamethasone Sodium Phosphate (Decadron) 20 mg STK-MED ONCE .ROUTE ; Start at 11:47; Stop 06/03/18 at 11:48; Status DC Lidocaine HCl (Lidocaine Pf 2% Vial) 5 ml STK-MED ONCE .ROUTE ; Start 06/03/18 at 11:47; Stop 06/03/18 at 11:48; Status DC Propofol 20 ml @ As Directed STK-MED ONCE IV ; Start 06/03/18 at 11:47; Stop at 11:48; Status DC Cefazolin Sodium/ Dextrose 50 ml @ As Directed STK-MED ONCE IV ; Start 06/03/18 at 12:03; Stop 06/03/18 at 12:04; Status DC Neostigmine Methylsulfate (Bloxiverz) 10 mg STK-MED ONCE .ROUTE ; Start at 13:16; Stop 06/03/18 at 13:17; Status DC Sevoflurane (Ultane) 60 ml STK-MED ONCE IH ; Start 06/03/18 at 13:16; Stop 06/03 at 13:17; Status DC Glycopyrrolate (Robinul) 1 mg STK-MED ONCE .ROUTE ; Start 06/03/18 at 13:16; Stop 06/03/18 at 13:17; Status DC Cefazolin Sodium/ Dextrose 50 ml @ 100 mls/hr 1X ONCE IV Last administered on 06/03/18at 12:29; Start 06/03/18 at 14:15; Stop 06/03/18 at 14:44; Status DC Diphenhydramine HCl (Benadryl) 25 mg PRN Q6HRS PRN PO ITCHING; Start 06/03/18 at 15:00 Sodium Chloride (Normal Saline Flush) 3 ml QSHIFT PRN IV AFTER MEDS AND BLOOD DRAWS; Start 06/03/18 at 15:00 Sodium Chloride 1,000 ml @ 30 mls/hr Q24H IV ; Start 06/03/18 at 14:47 Dextrose (Dextrose 50%-Water Syringe) 12.5 gm PRN Q15MIN PRN IV SEE COMMENTS; Start 06/03/18 at 15:00 Acetaminophen/ Hydrocodone Bitart (Lortab 5/325) 1 tab PRN Q4HRS PRN PO MILD PAIN Last administered on 06/04/18at 17:46; Start 06/03/18 at 15:00 Hydromorphone HCl (Dilaudid) 0.5 mg PRN Q3HRS PRN IV PAIN Last administered on 06/05/18at 08:13; Start 06/03/18 at 15:00 Docusate Sodium (Colace) 100 mg BID PO Last administered on 06/05/18at 08:13; Start 06/03/18 at 21:00 Ondansetron HCl (Zofran) 4 mg PRN Q6HRS PRN IV NAUESA, 1ST CHOICE; Start at 15:00 Sodium Chloride 1,000 ml @ 1,000 mls/hr Q1H PRN IV hypotension; Start 06/04/18 at 09:19; Stop 06/04/18 at 15:18; Status DC Sodium Chloride 1,000 ml @ 400 mls/hr Q2H30M PRN IV PATENCY; Start 06/04/18 at 09:19; Stop 06/04/18 at 21:18; Status DC Info (PHARMACY MONITORING -- do not chart) 1 each PRN DAILY PRN MC SEE COMMENTS ; Start 06/04/18 at 09:30; Status UNV Info (PHARMACY MONITORING -- do not chart) 1 each PRN DAILY PRN MC SEE COMMENTS ; Start 06/04/18 at 09:30; Status UNV Active Scripts Active Hydrocodone-Apap 5-325 (Hydrocodone Bit/Acetaminophen) 1 Each Tablet 1 Tab PO PRN Q6HRS PRN Furosemide 40 Mg Tablet 40 Mg PO BID92 30 Days Oyster Shell 500 Mg + Vit D Tb (Calcium Carbonate/Vitamin D3) 1 Each Tablet 1 Tab PO BIDWMEALS 30 Days Alprazolam 0.25 Mg Tablet 0.25 Mg PO PRN BID PRN 10 Days Feosol (Ferrous Sulfate) 325 Mg Tablet 325 Mg PO BIDWMEALS 30 Days Aspirin Ec (Aspirin) 325 Mg Tablet.dr 325 Mg PO DAILYWBKFT 30 Days Reported Amlodipine Besylate 10 Mg Tablet 10 Mg PO DAILY Carvedilol (Carvedilol) 12.5 Mg Tablet 12.5 Mg PO BIDWMEALS Hydralazine Hcl 50 Mg Tablet 1 Tab PO TID Clonidine Hcl 0.1 Mg Tablet 0.1 Mg PO TID Vitals/I & O Vital Sign - Last 24 Hours 06/04/18 06/04/18 06/04/18 06/04/18 17:46 17:46 17:47 17:47 Pulse 53 53 Resp 18 18 B/P (MAP) 102/64 102/64 Pulse Ox 91 91 O2 Delivery Nasal Cannula Nasal Cannula O2 Flow Rate 1.0 1.0 06/04/18 06/04/18 06/04/18 06/04/18 17:47 18:50 19:45 20:19 Temp 98.1 98.1 Pulse 53 56 Resp 17 B/P (MAP) 102/64 101/58 (72) Pulse Ox 91 95 O2 Delivery Nasal Cannula Room Air Nasal Cannula O2 Flow Rate 1.0 2.0 06/04/18 06/04/18 06/04/18 06/04/18 21:00 21:20 21:21 23:05 Temp 97.9 97.9 Pulse 47 51 47 Resp 17 B/P (MAP) 95/67 109/64 95/67 (76) Pulse Ox 96 O2 Delivery Room Air Room Air 06/05/18 06/05/18 06/05/18 06/05/18 03:00 07:52 08:00 08:13 Temp 97.7 98.1 97.7 98.1 Pulse 52 50 50 Resp 16 16 B/P (MAP) 105/64 (78) 118/81 (93) 118/81 Pulse Ox 96 96 O2 Delivery Room Air Room Air Nasal Cannula O2 Flow Rate 1.0 06/05/18 06/05/18 06/05/18 06/05/18 08:13 08:13 08:14 08:14 Pulse 50 50 50 Resp 18 B/P (MAP) 118/81 118/81 118/81 Pulse Ox 96 O2 Delivery Nasal Cannula O2 Flow Rate 1.0 2/24/19 2/24/19 08:49 11:08 Temp 97.9 97.9 Pulse 56 Resp 18 16 B/P (MAP) 118/77 (91) Pulse Ox 96 95 O2 Delivery Nasal Cannula Room Air O2 Flow Rate 1.0 Intake and Output 06/04/18 06/04/18 06/05/18 15:00 23:00 07:00 Intake Total 150 ml 200 ml Output Total 300 ml 250 ml Balance -150 ml -50 ml ZAK COTTO MD Jun 05, 2018 13:38
[2018-06-05 14:51] VITALS: BP 109/69
[2018-06-05 19:52] VITALS: BP 115/72
[2018-06-05] MEDS: HYDROcodone/APAP 5/325MG 1 TAB TABLET PO PRN (21:27)
[2018-06-05] MEDS: HEPARIN for SUB-Q USE 5,000 UNIT/ML VIAL. SQ SCH (21:32)
[2018-06-05 23:00] VITALS: BP 127/86
[2018-06-06] VITALS (7 sets, daily range): BP systolic 107–142; BP diastolic 62–93
[2018-06-06 05:05] LABS: BASO # 0.1 x10^3/uL (0.0-0.2); BASO % 2 % (0-3); EOS # 0.5 x10^3/uL (0.0-0.7); EOS % 10 % (0-3); HEMOGLOBIN 11.3 g/dL (13.0-17.5); LYMPH # 0.6 x10^3/uL (1.0-4.8); LYMPH % 13 % (24-48); MEAN CORPUSCULAR HEMOGLOBIN 27 pg (25-35); MEAN CORPUSCULAR HGB CONC 32 g/dL (31-37); MEAN CORPUSCULAR VOLUME 83 fL (79-100); MONO # 0.6 x10^3/uL (0.0-1.1); MONO % 12 % (0-9); NEUT # 2.9 x10^3uL (1.8-7.7); NEUT % 63 % (31-73); PLATELET COUNT 217 x10^3/uL (140-400); RED BLOOD COUNT 4.24 x10^6/uL (4.30-5.70); RED CELL DISTRIBUTION WIDTH 17.8 % (11.5-14.5); WHITE BLOOD COUNT 4.6 x10^3/uL (4.0-11.0)
[2018-06-06 05:25] LABS: ALBUMIN 2.2 g/dL (3.4-5.0); ALBUMIN/GLOBULIN RATIO 0.8 (1.0-1.7); CALCIUM 8.2 mg/dL (8.5-10.1); CREATININE 5.9 mg/dL (0.7-1.3); GFR 12.1; POTASSIUM 4.1 mmol/L (3.5-5.1); TOTAL BILIRUBIN 0.3 mg/dL (0.2-1.0)
[2018-06-06 05:27] LABS: PROTHROMBIN TIME PATIENT 15.2 SEC (11.7-14.0)
[2018-06-06] MEDS: HEPARIN for SUB-Q USE 5,000 UNIT/ML VIAL. SQ SCH ×3 (06:00→21:33)
[2018-06-06] MEDS: CARVEDILOL 12.5 MG TABLET. PO SCH ×2 (08:00→16:37)
[2018-06-06] MEDS: IV NORMAL SALINE 1000ML BAG 1,000 ML IV SCH ×2 (08:45→14:47)
--- NOTE | 2018-06-06 08:51 | PDOC ---
SURGICAL PROGRESS NOTE Subjective ongoing abdominal pain tolerating diet Vital Signs Vital Signs Date Time Temp Pulse Resp B/P (MAP) Pulse Ox O2 Delivery O2 Flow Rate FiO2 06/06/18 07:53 98.2 54 17 142/93 (109) 97 Room Air 98.2 06/05/18 18:06 1.0 I&O Intake and Output 06/06/18 06:59 Intake Total 1922 ml Output Total 800 ml Balance 1122 ml Intake Oral 1160 ml Blood Product IV Normal Saline Flush 762 ml Output Urine Total 800 ml General: Alert, Oriented X3, Cooperative, No acute distress Abdomen: Soft, Other (TTP, pd cath in place) Labs Laboratory Tests Test 06/06/18 04:49 White Blood Count 4.6 x10^3/uL (4.0-11.0) Red Blood Count 4.24 x10^6/uL (4.30-5.70) Hemoglobin 11.3 g/dL (13.0-17.5) Hematocrit 35.0 % (39.0-53.0) Mean Corpuscular Volume 83 fL (79-100) Mean Corpuscular Hemoglobin 27 pg (25-35) Mean Corpuscular Hemoglobin Concent 32 g/dL (31-37) Red Cell Distribution Width 17.8 % (11.5-14.5) Platelet Count 217 x10^3/uL (140-400) Neutrophils (%) (Auto) 63 % (31-73) Lymphocytes (%) (Auto) 13 % (24-48) Monocytes (%) (Auto) 12 % (0-9) Eosinophils (%) (Auto) 10 % (0-3) Basophils (%) (Auto) 2 % (0-3) Neutrophils # (Auto) 2.9 x10^3uL (1.8-7.7) Lymphocytes # (Auto) 0.6 x10^3/uL (1.0-4.8) Monocytes # (Auto) 0.6 x10^3/uL (0.0-1.1) Eosinophils # (Auto) 0.5 x10^3/uL (0.0-0.7) Basophils # (Auto) 0.1 x10^3/uL (0.0-0.2) Prothrombin Time 15.2 SEC (11.7-14.0) Prothromb Time International Ratio 1.2 (0.8-1.1) Sodium Level 138 mmol/L (136-145) Potassium Level 4.1 mmol/L (3.5-5.1) Chloride Level 100 mmol/L (98-107) Carbon Dioxide Level 29 mmol/L (21-32) Anion Gap 9 (6-14) Blood Urea Nitrogen 37 mg/dL (8-26) Creatinine 5.9 mg/dL (0.7-1.3) Estimated GFR (Cockcroft-Gault) 12.1 BUN/Creatinine Ratio 6 (6-20) Glucose Level 136 mg/dL (70-99) Calcium Level 8.2 mg/dL (8.5-10.1) Total Bilirubin 0.3 mg/dL (0.2-1.0) Aspartate Amino Transf (AST/SGOT) 11 U/L (15-37) Alanine Aminotransferase (ALT/SGPT) 10 U/L (16-63) Alkaline Phosphatase 86 U/L (46-116) Total Protein 5.0 g/dL (6.4-8.2) Albumin 2.2 g/dL (3.4-5.0) Albumin/Globulin Ratio 0.8 (1.0-1.7) Laboratory Tests Test 06/06/18 04:49 White Blood Count 4.6 x10^3/uL (4.0-11.0) Red Blood Count 4.24 x10^6/uL (4.30-5.70) Hemoglobin 11.3 g/dL (13.0-17.5) Hematocrit 35.0 % (39.0-53.0) Mean Corpuscular Volume 83 fL (79-100) Mean Corpuscular Hemoglobin 27 pg (25-35) Mean Corpuscular Hemoglobin Concent 32 g/dL (31-37) Red Cell Distribution Width 17.8 % (11.5-14.5) Platelet Count 217 x10^3/uL (140-400) Neutrophils (%) (Auto) 63 % (31-73) Lymphocytes (%) (Auto) 13 % (24-48) Monocytes (%) (Auto) 12 % (0-9) Eosinophils (%) (Auto) 10 % (0-3) Basophils (%) (Auto) 2 % (0-3) Neutrophils # (Auto) 2.9 x10^3uL (1.8-7.7) Lymphocytes # (Auto) 0.6 x10^3/uL (1.0-4.8) Monocytes # (Auto) 0.6 x10^3/uL (0.0-1.1) Eosinophils # (Auto) 0.5 x10^3/uL (0.0-0.7) Basophils # (Auto) 0.1 x10^3/uL (0.0-0.2) Prothrombin Time 15.2 SEC (11.7-14.0) Prothromb Time International Ratio 1.2 (0.8-1.1) Sodium Level 138 mmol/L (136-145) Potassium Level 4.1 mmol/L (3.5-5.1) Chloride Level 100 mmol/L (98-107) Carbon Dioxide Level 29 mmol/L (21-32) Anion Gap 9 (6-14) Blood Urea Nitrogen 37 mg/dL (8-26) Creatinine 5.9 mg/dL (0.7-1.3) Estimated GFR (Cockcroft-Gault) 12.1 BUN/Creatinine Ratio 6 (6-20) Glucose Level 136 mg/dL (70-99) Calcium Level 8.2 mg/dL (8.5-10.1) Total Bilirubin 0.3 mg/dL (0.2-1.0) Aspartate Amino Transf (AST/SGOT) 11 U/L (15-37) Alanine Aminotransferase (ALT/SGPT) 10 U/L (16-63) Alkaline Phosphatase 86 U/L (46-116) Total Protein 5.0 g/dL (6.4-8.2) Albumin 2.2 g/dL (3.4-5.0) Albumin/Globulin Ratio 0.8 (1.0-1.7) Problem List Problems Medical Problems: (1) Dialysis patient Status: Acute Assessment/Plan s/p pd cath HD until incisions healed can RUKHSANA in clinic BERTIN MACK APRN Jun 06, 2018 08:51
[2018-06-06] MEDS: DOCUSATE SODIUM 100 MG CAPSULE. PO SCH ×2 (09:17→21:26)
[2018-06-06] MEDS: ASPIRIN ENTERIC COATED 325 MG TABLET.DR. PO SCH (09:17)
[2018-06-06] MEDS: CALCIUM CARB/VIT D3 500/200 TABLET. PO SCH ×2 (09:18→16:36)
[2018-06-06] MEDS: FERROUS SULFATE 325 MG TABLET. PO SCH ×2 (09:18→16:35)
[2018-06-06] MEDS: FUROSEMIDE 40 MG TABLET. PO SCH ×2 (09:18→13:08)
[2018-06-06] MEDS: cloNIDine HCL 0.1 MG TABLET PO SCH ×3 (09:19→21:28)
[2018-06-06] MEDS: HYDROcodone/APAP 5/325MG 1 TAB TABLET PO PRN ×2 (09:20→16:36)
[2018-06-06] MEDS: CIPROFLOXACIN 0.3% OPHTH SOLUTION 5ML BOTTLE. OU SCH ×4 (09:21→22:21)
--- NOTE | 2018-06-06 12:34 | PDOC ---
Renal-Progress Notes Subjective Notes Notes SOME INCISIONAL ABD PAIN History of Present Illness Hx of present illness STABLE Vitals Vitals Vital Signs Date Time Temp Pulse Resp B/P (MAP) Pulse Ox O2 Delivery O2 Flow Rate FiO2 06/06/18 10:49 97.4 58 17 134/88 (103) 94 Room Air 97.4 06/05/18 18:06 1.0 Weight Weight [ ] I.O. Intake and Output Intake and Output 06/06/18 06:59 Intake Total 1922 ml Output Total 800 ml Balance 1122 ml Intake Oral 1160 ml Blood Product IV Normal Saline Flush 762 ml Output Urine Total 800 ml Labs Labs Laboratory Tests Test 06/06/18 04:49 White Blood Count 4.6 x10^3/uL (4.0-11.0) Red Blood Count 4.24 x10^6/uL (4.30-5.70) Hemoglobin 11.3 g/dL (13.0-17.5) Hematocrit 35.0 % (39.0-53.0) Mean Corpuscular Volume 83 fL (79-100) Mean Corpuscular Hemoglobin 27 pg (25-35) Mean Corpuscular Hemoglobin Concent 32 g/dL (31-37) Red Cell Distribution Width 17.8 % (11.5-14.5) Platelet Count 217 x10^3/uL (140-400) Neutrophils (%) (Auto) 63 % (31-73) Lymphocytes (%) (Auto) 13 % (24-48) Monocytes (%) (Auto) 12 % (0-9) Eosinophils (%) (Auto) 10 % (0-3) Basophils (%) (Auto) 2 % (0-3) Neutrophils # (Auto) 2.9 x10^3uL (1.8-7.7) Lymphocytes # (Auto) 0.6 x10^3/uL (1.0-4.8) Monocytes # (Auto) 0.6 x10^3/uL (0.0-1.1) Eosinophils # (Auto) 0.5 x10^3/uL (0.0-0.7) Basophils # (Auto) 0.1 x10^3/uL (0.0-0.2) Prothrombin Time 15.2 SEC (11.7-14.0) Prothromb Time International Ratio 1.2 (0.8-1.1) Sodium Level 138 mmol/L (136-145) Potassium Level 4.1 mmol/L (3.5-5.1) Chloride Level 100 mmol/L (98-107) Carbon Dioxide Level 29 mmol/L (21-32) Anion Gap 9 (6-14) Blood Urea Nitrogen 37 mg/dL (8-26) Creatinine 5.9 mg/dL (0.7-1.3) Estimated GFR (Cockcroft-Gault) 12.1 BUN/Creatinine Ratio 6 (6-20) Glucose Level 136 mg/dL (70-99) Calcium Level 8.2 mg/dL (8.5-10.1) Total Bilirubin 0.3 mg/dL (0.2-1.0) Aspartate Amino Transf (AST/SGOT) 11 U/L (15-37) Alanine Aminotransferase (ALT/SGPT) 10 U/L (16-63) Alkaline Phosphatase 86 U/L (46-116) Total Protein 5.0 g/dL (6.4-8.2) Albumin 2.2 g/dL (3.4-5.0) Albumin/Globulin Ratio 0.8 (1.0-1.7) Review of Systems Constitutional: yes: weakness, alert, oriented Ears/Nose/Throat: Yes: no symptom reported Eyes: Yes: no symptom reported Pulmonary: Yes no symptom reported Cardiovascular: Yes no symptom reported Gastrointestional: Yes: abdominal pain Genitourinary: Yes: no symptom reported Musculoskeletal: Yes: no symptom reported Skin: Yes no symptom reported Psychiatric/Neurological: Yes: no symptom reported Endocrine: Yes: no symptom reported Hematologic/Lymphatic: Yes: no symptom reported Physical Exam General Appearance: no apparent distress Skin: warm Respiratory: bilateral CTA Heart: S1S2, RRR Abdomen: soft, bowel sounds present, rectal tube Genitourinary: bladder flat, no mass Extremities: pulses present, no edema, atrophy Neurology: alert, oriented, follow commands Musculoskeletal: Osteoarthritis Assessment Assessment IMP ESRD ANEMIA ASCITES HTN S/P PD CATHETER AND HERNIA REPAIR PLAN HD TOMORROW WILL DRAIN ASCITES VIA PD CATHETER WHEN NEEDED WILL PLAN FOR PD TO START IN ABOUT 3-4 WEEKS OP D/W DR HERRERA UPDATED OP CLINIC WILL FOLLOW OSIRIS MEADOWS MD Jun 06, 2018 12:34
[2018-06-06] MEDS: amLODIPine BESYLATE 10 MG TABLET PO SCH (12:53)
[2018-06-06] MEDS: HYDROmorphone 2 MG/ML VIAL IV PRN (12:59)
--- NOTE | 2018-06-06 13:13 | PDOC ---
Subjective: Subjective: Abdomen is sore "from the cut." Eating okay. Objective: Vital Signs: Vital Signs Date Time Temp Pulse Resp B/P (MAP) Pulse Ox O2 Delivery O2 Flow Rate FiO2 06/06/18 13:09 59 134/88 06/06/18 13:00 94 Room Air 06/06/18 10:49 97.4 17 97.4 06/05/18 18:06 1.0 Labs: Laboratory Tests Test 06/06/18 04:49 White Blood Count 4.6 x10^3/uL Red Blood Count 4.24 x10^6/uL Hemoglobin 11.3 g/dL Hematocrit 35.0 % Mean Corpuscular Volume 83 fL Mean Corpuscular Hemoglobin 27 pg Mean Corpuscular Hemoglobin Concent 32 g/dL Red Cell Distribution Width 17.8 % Platelet Count 217 x10^3/uL Neutrophils (%) (Auto) 63 % Lymphocytes (%) (Auto) 13 % Monocytes (%) (Auto) 12 % Eosinophils (%) (Auto) 10 % Basophils (%) (Auto) 2 % Neutrophils # (Auto) 2.9 x10^3uL Lymphocytes # (Auto) 0.6 x10^3/uL Monocytes # (Auto) 0.6 x10^3/uL Eosinophils # (Auto) 0.5 x10^3/uL Basophils # (Auto) 0.1 x10^3/uL Prothrombin Time 15.2 SEC Prothromb Time International Ratio 1.2 Sodium Level 138 mmol/L Potassium Level 4.1 mmol/L Chloride Level 100 mmol/L Carbon Dioxide Level 29 mmol/L Anion Gap 9 Blood Urea Nitrogen 37 mg/dL Creatinine 5.9 mg/dL Estimated GFR (Cockcroft-Gault) 12.1 BUN/Creatinine Ratio 6 Glucose Level 136 mg/dL Calcium Level 8.2 mg/dL Total Bilirubin 0.3 mg/dL Aspartate Amino Transf (AST/SGOT) 11 U/L Alanine Aminotransferase (ALT/SGPT) 10 U/L Alkaline Phosphatase 86 U/L Total Protein 5.0 g/dL Albumin 2.2 g/dL Albumin/Globulin Ratio 0.8 PE: GEN: NAD, on the phone LUNGS: CTAB HEART: RRR ABD: tender, some distention but not tight NEURO/PSYCH: A & O 3 A/P: ESRD s/p PD cath placement Ascites - do not suspect portal hypertension -- Continue support per GI. NEGAR CLEMONS Jun 06, 2018 13:13
--- NOTE | 2018-06-06 14:47 | PDOC ---
PROGRESS NOTES Chief Complaint Chief Complaint New-onset ascites etiology most likely related to hypoalbuminemia. Liver disease work up so far negative. No further work up deemed necessary from the GI stand point of view Status post umbilical hernia repair and with peritoneal dialysis catheter placement. Bacterial conjunctivitis End-stage renal disease on hemodialysis looking to transition to PD Abdominal pain secondary to the ascites, very low suspicion for SBP or other surgical process given the benign nature of his physical exam Essential hypertension currently fairly controlled History of GERD Plan: nephrology for dialysis management Peritoneal dialysis catheter placement done on 2018 ciprofloxacin ophthalmic for conjunctivitis finished course start oxycodone er for pain management discontinue dilaudid anticipating dishcharge after dialysis in the am Resume home meds supportive measures. DVT prophylaxis with heparin History of Present Illness History of Present Illness Patient complaining of abdominal discomfort most likely secondary to his underlying ascites. No signs of infection on his new peritoneal dialysis catheter reassurances been provided Vitals Vitals Vital Signs Date Time Temp Pulse Resp B/P (MAP) Pulse Ox O2 Delivery O2 Flow Rate FiO2 06/06/18 13:09 59 134/88 06/06/18 13:00 94 Room Air 06/06/18 10:49 97.4 17 97.4 06/05/18 18:06 1.0 Physical Exam Physical Exam Gen.: chronically ill appearing in no apparent distress Head: Normal shape atraumatic Eyes: Pupils equal reactive to light and accommodation, normal conjunctivae and lids Ears: Normal shape Nose: Normal shape no trauma Mouth: No exudates of the back of throat no thrush no lesions Neck: Supple no JVD no carotid bruit or lymphadenopathy no thyromegaly Chest: Lungs clear to auscultation with good inspiratory effort no crackles rales or rhonchi Cardiovascular: S1-S2 regular rhythm sytolic murmur gallops or rubs Abdomen: Bowel sounds present soft nontender no hepatosplenomegaly appreciated sign significant ascites present Extremities: No clubbing no cyanosis no edema peripheral pulses palpated bilaterally Neurological: Alert awake oriented in person time place and situation, cranial nerves II through XII intact, no motor or sensory deficits appreciated Psych: Appropriate mood, cooperative General: Alert, Oriented X3, Cooperative, No acute distress Heart: Regular rate, Normal S1, Normal S2 Lungs: Clear, Other Abdomen: Soft, Other (TTP, pd cath in place) Extremities: No clubbing, No cyanosis Skin: No rashes, No breakdown Labs LABS Laboratory Tests Test 06/06/18 04:49 White Blood Count 4.6 x10^3/uL (4.0-11.0) Red Blood Count 4.24 x10^6/uL (4.30-5.70) Hemoglobin 11.3 g/dL (13.0-17.5) Hematocrit 35.0 % (39.0-53.0) Mean Corpuscular Volume 83 fL (79-100) Mean Corpuscular Hemoglobin 27 pg (25-35) Mean Corpuscular Hemoglobin Concent 32 g/dL (31-37) Red Cell Distribution Width 17.8 % (11.5-14.5) Platelet Count 217 x10^3/uL (140-400) Neutrophils (%) (Auto) 63 % (31-73) Lymphocytes (%) (Auto) 13 % (24-48) Monocytes (%) (Auto) 12 % (0-9) Eosinophils (%) (Auto) 10 % (0-3) Basophils (%) (Auto) 2 % (0-3) Neutrophils # (Auto) 2.9 x10^3uL (1.8-7.7) Lymphocytes # (Auto) 0.6 x10^3/uL (1.0-4.8) Monocytes # (Auto) 0.6 x10^3/uL (0.0-1.1) Eosinophils # (Auto) 0.5 x10^3/uL (0.0-0.7) Basophils # (Auto) 0.1 x10^3/uL (0.0-0.2) Prothrombin Time 15.2 SEC (11.7-14.0) Prothromb Time International Ratio 1.2 (0.8-1.1) Sodium Level 138 mmol/L (136-145) Potassium Level 4.1 mmol/L (3.5-5.1) Chloride Level 100 mmol/L (98-107) Carbon Dioxide Level 29 mmol/L (21-32) Anion Gap 9 (6-14) Blood Urea Nitrogen 37 mg/dL (8-26) Creatinine 5.9 mg/dL (0.7-1.3) Estimated GFR (Cockcroft-Gault) 12.1 BUN/Creatinine Ratio 6 (6-20) Glucose Level 136 mg/dL (70-99) Calcium Level 8.2 mg/dL (8.5-10.1) Total Bilirubin 0.3 mg/dL (0.2-1.0) Aspartate Amino Transf (AST/SGOT) 11 U/L (15-37) Alanine Aminotransferase (ALT/SGPT) 10 U/L (16-63) Alkaline Phosphatase 86 U/L (46-116) Total Protein 5.0 g/dL (6.4-8.2) Albumin 2.2 g/dL (3.4-5.0) Albumin/Globulin Ratio 0.8 (1.0-1.7) Review of Systems Review of Systems pertinent as per hpi otherwise negative. Assessment and Plan Assessmemt and Plan Problems Medical Problems: (1) Dialysis patient Status: Acute Comment Review of Relevant I have reviewed the following items benjamin (where applicable) has been applied. Labs Laboratory Tests Test 06/06/18 04:49 White Blood Count 4.6 x10^3/uL (4.0-11.0) Red Blood Count 4.24 x10^6/uL (4.30-5.70) Hemoglobin 11.3 g/dL (13.0-17.5) Hematocrit 35.0 % (39.0-53.0) Mean Corpuscular Volume 83 fL (79-100) Mean Corpuscular Hemoglobin 27 pg (25-35) Mean Corpuscular Hemoglobin Concent 32 g/dL (31-37) Red Cell Distribution Width 17.8 % (11.5-14.5) Platelet Count 217 x10^3/uL (140-400) Neutrophils (%) (Auto) 63 % (31-73) Lymphocytes (%) (Auto) 13 % (24-48) Monocytes (%) (Auto) 12 % (0-9) Eosinophils (%) (Auto) 10 % (0-3) Basophils (%) (Auto) 2 % (0-3) Neutrophils # (Auto) 2.9 x10^3uL (1.8-7.7) Lymphocytes # (Auto) 0.6 x10^3/uL (1.0-4.8) Monocytes # (Auto) 0.6 x10^3/uL (0.0-1.1) Eosinophils # (Auto) 0.5 x10^3/uL (0.0-0.7) Basophils # (Auto) 0.1 x10^3/uL (0.0-0.2) Prothrombin Time 15.2 SEC (11.7-14.0) Prothromb Time International Ratio 1.2 (0.8-1.1) Sodium Level 138 mmol/L (136-145) Potassium Level 4.1 mmol/L (3.5-5.1) Chloride Level 100 mmol/L (98-107) Carbon Dioxide Level 29 mmol/L (21-32) Anion Gap 9 (6-14) Blood Urea Nitrogen 37 mg/dL (8-26) Creatinine 5.9 mg/dL (0.7-1.3) Estimated GFR (Cockcroft-Gault) 12.1 BUN/Creatinine Ratio 6 (6-20) Glucose Level 136 mg/dL (70-99) Calcium Level 8.2 mg/dL (8.5-10.1) Total Bilirubin 0.3 mg/dL (0.2-1.0) Aspartate Amino Transf (AST/SGOT) 11 U/L (15-37) Alanine Aminotransferase (ALT/SGPT) 10 U/L (16-63) Alkaline Phosphatase 86 U/L (46-116) Total Protein 5.0 g/dL (6.4-8.2) Albumin 2.2 g/dL (3.4-5.0) Albumin/Globulin Ratio 0.8 (1.0-1.7) Laboratory Tests Test 06/06/18 04:49 White Blood Count 4.6 x10^3/uL (4.0-11.0) Red Blood Count 4.24 x10^6/uL (4.30-5.70) Hemoglobin 11.3 g/dL (13.0-17.5) Hematocrit 35.0 % (39.0-53.0) Mean Corpuscular Volume 83 fL (79-100) Mean Corpuscular Hemoglobin 27 pg (25-35) Mean Corpuscular Hemoglobin Concent 32 g/dL (31-37) Red Cell Distribution Width 17.8 % (11.5-14.5) Platelet Count 217 x10^3/uL (140-400) Neutrophils (%) (Auto) 63 % (31-73) Lymphocytes (%) (Auto) 13 % (24-48) Monocytes (%) (Auto) 12 % (0-9) Eosinophils (%) (Auto) 10 % (0-3) Basophils (%) (Auto) 2 % (0-3) Neutrophils # (Auto) 2.9 x10^3uL (1.8-7.7) Lymphocytes # (Auto) 0.6 x10^3/uL (1.0-4.8) Monocytes # (Auto) 0.6 x10^3/uL (0.0-1.1) Eosinophils # (Auto) 0.5 x10^3/uL (0.0-0.7) Basophils # (Auto) 0.1 x10^3/uL (0.0-0.2) Prothrombin Time 15.2 SEC (11.7-14.0) Prothromb Time International Ratio 1.2 (0.8-1.1) Sodium Level 138 mmol/L (136-145) Potassium Level 4.1 mmol/L (3.5-5.1) Chloride Level 100 mmol/L (98-107) Carbon Dioxide Level 29 mmol/L (21-32) Anion Gap 9 (6-14) Blood Urea Nitrogen 37 mg/dL (8-26) Creatinine 5.9 mg/dL (0.7-1.3) Estimated GFR (Cockcroft-Gault) 12.1 BUN/Creatinine Ratio 6 (6-20) Glucose Level 136 mg/dL (70-99) Calcium Level 8.2 mg/dL (8.5-10.1) Total Bilirubin 0.3 mg/dL (0.2-1.0) Aspartate Amino Transf (AST/SGOT) 11 U/L (15-37) Alanine Aminotransferase (ALT/SGPT) 10 U/L (16-63) Alkaline Phosphatase 86 U/L (46-116) Total Protein 5.0 g/dL (6.4-8.2) Albumin 2.2 g/dL (3.4-5.0) Albumin/Globulin Ratio 0.8 (1.0-1.7) Medications Current Medications Prochlorperazine Edisylate (Compazine) 5 mg 1X ONCE IV Last administered on at 14:31; Start 05/31/18 at 14:00; Stop 05/31/18 at 14:06; Status DC Morphine Sulfate (Morphine Sulfate) 4 mg 1X ONCE IV Last administered on 14:30; Start 05/31/18 at 14:00; Stop 05/31/18 at 14:06; Status DC Aspirin (Children'S Aspirin) 324 mg 1X ONCE PO Last administered on 05/31/18 15:30; Start 05/31/18 at 15:30; Stop 05/31/18 at 15:31; Status DC Ondansetron HCl (Zofran) 4 mg PRN Q8HRS PRN IV NAUSEA/VOMITING; Start 05/31/18 at 15:45; Stop 06/01/18 at 15:44; Status DC Morphine Sulfate (Morphine Sulfate) 2 mg PRN Q2HR PRN IV PAIN; Start 05/31/18 at 15:45; Stop 06/01/18 at 15:44; Status DC Acetaminophen (Tylenol) 650 mg PRN Q4HRS PRN PO FEVER; Start 05/31/18 at 15:45 ; Stop 06/01/18 at 15:44; Status DC Ciprofloxacin (Ciloxan Ophth) 1 drop QID OU Last administered on 06/06/18 13: 05; Start 05/31/18 at 18:00 Alprazolam (Xanax) 0.25 mg PRN BID PRN PO ANXIETY / AGITATION Last administered on 06/04/18 21:19; Start 05/31/18 at 17:30 Amlodipine Besylate (Norvasc) 10 mg DAILY PO Last administered on 06/06/18 12: 53; Start 06/01/18 at 09:00 Aspirin (Ecotrin) 325 mg DAILYWBKFT PO Last administered on 06/06/18 09:17; Start 06/01/18 at 08:00 Calcium/Vitamin D (Oscal D 500mg/ 200uts) 1 tab BIDWMEALS PO Last administered on 06/06/18 09:18; Start 06/01/18 at 17:00 Carvedilol (Coreg) 12.5 mg BIDWMEALS PO Last administered on 06/05/18 17:25; Start 06/01/18 at 08:00 Clonidine HCl (Catapres) 0.1 mg TID PO Last administered on 06/06/18 13:09; Start 05/31/18 at 21:00 Ferrous Sulfate (Feosol) 325 mg BIDWMEALS PO Last administered on 06/06/18 09: 18; Start 06/01/18 at 08:00 Furosemide (Lasix) 40 mg BID92 PO Last administered on 06/06/18 13:08; Start 06/01/18 at 09:00 Acetaminophen/ Hydrocodone Bitart (Lortab 5/325) 1 tab PRN Q6HRS PRN PO SEVERE PAIN Last administered on 06/06/18 09:20; Start 05/31/18 at 17:30 Hydralazine HCl (Apresoline) 50 mg TID PO Last administered on 06/06/18 13:09 ; Start 05/31/18 at 21:00 Morphine Sulfate (Morphine Sulfate) 2 mg PRN Q2HR PRN IV PAIN Last administered on 06/03/18at 15:36; Start 05/31/18 at 17:45 Hydralazine HCl (Apresoline Inj) 25 mg PRN Q6HRS PRN IVP ELEVATED BP, SEE COMMENTS Last administered on 05/31/18at 23:51; Start 05/31/18 at 23:30 Lidocaine HCl (Xylocaine-Mpf 1% 2ml Vial) 2 ml STK-MED ONCE .ROUTE ; Start 06/01 at 08:01; Stop 06/01/18 at 08:02; Status DC Sodium Chloride 1,000 ml @ 1,000 mls/hr Q1H PRN IV hypotension; Start 06/01/18 at 08:00; Stop 06/01/18 at 13:59; Status DC Albumin Human 200 ml @ 200 mls/hr 1X PRN PRN IV Hypotension; Start 06/01/18 at 08:00; Stop 06/01/18 at 13:59; Status DC Sodium Chloride 1,000 ml @ 400 mls/hr Q2H30M PRN IV PATENCY; Start 06/01/18 at 08:00; Stop 06/01/18 at 19:59; Status DC Info (PHARMACY MONITORING -- do not chart) 1 each PRN DAILY PRN MC SEE COMMENTS ; Start 06/01/18 at 08:30; Status UNV Info (PHARMACY MONITORING -- do not chart) 1 each PRN DAILY PRN MC SEE COMMENTS ; Start 06/01/18 at 08:30 Lidocaine HCl (Xylocaine-Mpf 1% 2ml Vial) 2 ml 1X ONCE INJ ; Start 06/01/18 at 08:00; Stop 06/01/18 at 08:28; Status DC Albumin Human 100 ml @ As Directed STK-MED ONCE IV ; Start 06/02/18 at 10:51; Stop 06/02/18 at 10:52; Status DC Albumin Human 100 ml @ 100 mls/hr 1X ONCE IV Last administered on 06/02/18at 10:59; Start 06/02/18 at 11:00; Stop 06/02/18 at 11:59; Status DC Ondansetron HCl (Zofran) 4 mg PRN Q6HRS PRN IV NAUSEA/VOMITING; Start 06/03/18 at 07:00; Stop 06/04/18 at 06:59; Status DC Fentanyl Citrate (Fentanyl 2ml Vial) 25 mcg PRN Q5MIN PRN IV MILD PAIN; Start 06/03/18 at 07:00; Stop 06/04/18 at 06:59; Status DC Fentanyl Citrate (Fentanyl 2ml Vial) 50 mcg PRN Q5MIN PRN IV MODERATE TO SEVERE PAIN Last administered on 06/03/18at 14:25; Start 06/03/18 at 07:00; Stop 06/04/18 at 06:59; Status DC Morphine Sulfate (Morphine Sulfate) 1 mg PRN Q10MIN PRN IV SEVERE PAIN Last administered on 06/03/18at 15:06; Start 06/03/18 at 07:00; Stop 06/04/18 at 06:59 ; Status DC Ringer's Solution 1,000 ml @ 30 mls/hr Q24H IV ; Start 06/03/18 at 07:00; Stop 06/03/18 at 08:41; Status DC Lidocaine HCl (Xylocaine-Mpf 1% 2ml Vial) 2 ml PRN 1X PRN ID IV START; Start at 07:00; Stop 06/04/18 at 06:59; Status DC Hydromorphone HCl (Dilaudid) 0.5 mg PRN Q10MIN PRN IV SEV PAIN, Second choice Last administered on 06/04/18at 04:25; Start 06/03/18 at 07:00; Stop 06/04/18 at 06:59; Status DC Prochlorperazine Edisylate (Compazine) 5 mg PACU PRN PRN IV NAUSEA, MRX1 Last administered on 06/03/18at 14:37; Start 06/03/18 at 07:00; Stop 06/04/18 at 06:59 ; Status DC Sodium Chloride 1,000 ml @ 30 mls/hr Q24H IV ; Start 06/03/18 at 08:45 Lidocaine HCl (Xylocaine-Mpf 1% 2ml Vial) 2 ml STK-MED ONCE .ROUTE ; Start 06/01 at 08:00; Stop 06/03/18 at 08:55; Status DC Heparin Sodium (Porcine) 5000 unit/Sodium Chloride 505 ml @ 505 mls/hr 1X ONCE IRR ; Start 06/03/18 at 12:00; Stop 06/03/18 at 12:59; Status DC Bupivacaine HCl/ Epinephrine Bitart (Sensorcain-Mpf Epi 0.5%-1:[id number]) 30 ml STK -MED ONCE .ROUTE ; Start 06/03/18 at 11:44; Stop 06/03/18 at 11:45; Status DC Fentanyl Citrate (Fentanyl 2ml Vial) 100 mcg STK-MED ONCE .ROUTE ; Start at 11:47; Stop 06/03/18 at 11:48; Status DC Rocuronium [place] (Zemuron) 50 mg STK-MED ONCE .ROUTE ; Start 06/03/18 at 11:47 ; Stop 06/03/18 at 11:48; Status DC Ondansetron HCl (Zofran) 4 mg STK-MED ONCE .ROUTE ; Start 06/03/18 at 11:47; Stop 06/03/18 at 11:48; Status DC Dexamethasone Sodium Phosphate (Decadron) 20 mg STK-MED ONCE .ROUTE ; Start at 11:47; Stop 06/03/18 at 11:48; Status DC Lidocaine HCl (Lidocaine Pf 2% Vial) 5 ml STK-MED ONCE .ROUTE ; Start 06/03/18 at 11:47; Stop 06/03/18 at 11:48; Status DC Propofol 20 ml @ As Directed STK-MED ONCE IV ; Start 06/03/18 at 11:47; Stop at 11:48; Status DC Cefazolin Sodium/ Dextrose 50 ml @ As Directed STK-MED ONCE IV ; Start 06/03/18 at 12:03; Stop 06/03/18 at 12:04; Status DC Neostigmine Methylsulfate (Bloxiverz) 10 mg STK-MED ONCE .ROUTE ; Start at 13:16; Stop 06/03/18 at 13:17; Status DC Sevoflurane (Ultane) 60 ml STK-MED ONCE IH ; Start 06/03/18 at 13:16; Stop 06/03 at 13:17; Status DC Glycopyrrolate (Robinul) 1 mg STK-MED ONCE .ROUTE ; Start 06/03/18 at 13:16; Stop 06/03/18 at 13:17; Status DC Cefazolin Sodium/ Dextrose 50 ml @ 100 mls/hr 1X ONCE IV Last administered on 06/03/18at 12:29; Start 06/03/18 at 14:15; Stop 06/03/18 at 14:44; Status DC Diphenhydramine HCl (Benadryl) 25 mg PRN Q6HRS PRN PO ITCHING; Start 06/03/18 at 15:00 Sodium Chloride (Normal Saline Flush) 3 ml QSHIFT PRN IV AFTER MEDS AND BLOOD DRAWS; Start 06/03/18 at 15:00 Sodium Chloride 1,000 ml @ 30 mls/hr Q24H IV ; Start 06/03/18 at 14:47 Dextrose (Dextrose 50%-Water Syringe) 12.5 gm PRN Q15MIN PRN IV SEE COMMENTS; Start 06/03/18 at 15:00 Acetaminophen/ Hydrocodone Bitart (Lortab 5/325) 1 tab PRN Q4HRS PRN PO MILD PAIN Last administered on 06/04/18at 17:46; Start 06/03/18 at 15:00 Hydromorphone HCl (Dilaudid) 0.5 mg PRN Q3HRS PRN IV PAIN Last administered on 06/06/18at 12:59; Start 06/03/18 at 15:00 Docusate Sodium (Colace) 100 mg BID PO Last administered on 06/06/18at 09:17; Start 06/03/18 at 21:00 Ondansetron HCl (Zofran) 4 mg PRN Q6HRS PRN IV NAUESA, 1ST CHOICE; Start at 15:00 Sodium Chloride 1,000 ml @ 1,000 mls/hr Q1H PRN IV hypotension; Start 06/04/18 at 09:19; Stop 06/04/18 at 15:18; Status DC Sodium Chloride 1,000 ml @ 400 mls/hr Q2H30M PRN IV PATENCY; Start 06/04/18 at 09:19; Stop 06/04/18 at 21:18; Status DC Info (PHARMACY MONITORING -- do not chart) 1 each PRN DAILY PRN MC SEE COMMENTS ; Start 06/04/18 at 09:30; Status UNV Info (PHARMACY MONITORING -- do not chart) 1 each PRN DAILY PRN MC SEE COMMENTS ; Start 06/04/18 at 09:30; Status UNV Enoxaparin Sodium (Lovenox Per Pharmacy Prophylaxis Dosing) 1 each PRN DAILY PRN MC SEE COMMENTS; Start 06/05/18 at 17:30; Status UNV Heparin Sodium (Porcine) (Heparin Sodium) 5,000 unit Q8HRS SQ ; Start 06/05/18 at 22:00 Polyethylene Glycol (miraLAX PACKET) 17 gm DAILY PO ; Start 06/06/18 at 14:00 Active Scripts Active Hydrocodone-Apap 5-325 (Hydrocodone Bit/Acetaminophen) 1 Each Tablet 1 Tab PO PRN Q6HRS PRN Furosemide 40 Mg Tablet 40 Mg PO BID92 30 Days Oyster Shell 500 Mg + Vit D Tb (Calcium Carbonate/Vitamin D3) 1 Each Tablet 1 Tab PO BIDWMEALS 30 Days Alprazolam 0.25 Mg Tablet 0.25 Mg PO PRN BID PRN 10 Days Feosol (Ferrous Sulfate) 325 Mg Tablet 325 Mg PO BIDWMEALS 30 Days Aspirin Ec (Aspirin) 325 Mg Tablet. 325 Mg PO DAILYWBKFT 30 Days Reported Amlodipine Besylate 10 Mg Tablet 10 Mg PO DAILY Carvedilol (Carvedilol) 12.5 Mg Tablet 12.5 Mg PO BIDWMEALS Hydralazine Hcl 50 Mg Tablet 1 Tab PO TID Clonidine Hcl 0.1 Mg Tablet 0.1 Mg PO TID Vitals/I & O Vital Sign - Last 24 Hours 06/05/18 06/05/18 06/05/18 06/05/18 14:51 17:25 17:25 18:06 Temp 98.3 98.3 Pulse 61 61 Resp 16 18 B/P (MAP) 109/69 (82) 109/69 Pulse Ox 95 95 95 O2 Delivery Room Air Nasal Cannula O2 Flow Rate 1.0 1.0 06/05/18 06/05/18 06/05/18 06/05/18 19:30 19:52 21:00 21:00 Temp 98.1 98.1 Pulse 54 54 54 Resp 16 B/P (MAP) 115/72 (86) 115/72 115/72 Pulse Ox 95 O2 Delivery Room Air Room Air 06/05/18 06/05/18 06/05/18 06/05/18 21:27 21:30 22:01 22:27 Resp 18 20 20 20 Pulse Ox 95 O2 Delivery Room Air Room Air Room Air 06/05/18 06/06/18 06/06/18 06/06/18 23:00 03:45 07:53 08:00 Temp 97.7 97.6 98.2 97.7 97.6 98.2 Pulse 50 56 54 54 Resp 17 17 17 B/P (MAP) 127/86 (100) 110/69 (83) 142/93 (109) Pulse Ox 97 96 97 O2 Delivery Room Air Room Air Room Air 06/06/18 06/06/18 06/06/18 06/06/18 08:00 09:18 09:19 09:20 Pulse 59 58 B/P (MAP) 142/93 142/93 Pulse Ox 97 O2 Delivery Room Air Room Air 06/06/18 06/06/18 06/06/18 06/06/18 10:49 12:53 12:59 13:00 Temp 97.4 97.4 Pulse 58 59 Resp 17 B/P (MAP) 134/88 (103) 134/88 Pulse Ox 94 94 O2 Delivery Room Air Room Air Room Air 06/06/18 06/06/18 13:09 13:09 Pulse 59 59 B/P (MAP) 134/88 134/88 Intake and Output 06/05/18 06/05/18 06/06/18 15:00 23:00 07:00 Intake Total 360 ml 800 ml 762 ml Output Total 300 ml 500 ml Balance 360 ml 500 ml 262 ml ZAK COTTO MD Jun 06, 2018 14:47
[2018-06-06] MEDS: POLYETHYLENE GLYCOL 3350 17 GM PACKET. PO SCH (16:35)
[2018-06-06] MEDS: oxyCODONE ER 15 MG TAB.ER.12H PO SCH (21:27)
[2018-06-07 03:50] VITALS: BP 112/75
[2018-06-07 04:11] LABS: CALCIUM 8.2 mg/dL (8.5-10.1); CREATININE 6.4 mg/dL (0.7-1.3); GFR 11.1; POTASSIUM 4.4 mmol/L (3.5-5.1)
[2018-06-07] MEDS: HEPARIN for SUB-Q USE 5,000 UNIT/ML VIAL. SQ SCH ×3 (05:21→22:00)
[2018-06-07] MEDS: HYDROcodone/APAP 5/325MG 1 TAB TABLET PO PRN (06:42)
[2018-06-07 07:00] VITALS: BP 126/76
[2018-06-07] MEDS: ASPIRIN ENTERIC COATED 325 MG TABLET.DR. PO SCH (08:34)
[2018-06-07] MEDS: FERROUS SULFATE 325 MG TABLET. PO SCH ×2 (08:34→18:43)
[2018-06-07] MEDS: DOCUSATE SODIUM 100 MG CAPSULE. PO SCH ×2 (08:35→22:40)
[2018-06-07] MEDS: FUROSEMIDE 40 MG TABLET. PO SCH ×2 (08:35→14:00)
[2018-06-07] MEDS: cloNIDine HCL 0.1 MG TABLET PO SCH ×3 (08:36→22:42)
[2018-06-07] MEDS: CALCIUM CARB/VIT D3 500/200 TABLET. PO SCH ×2 (08:36→18:47)
[2018-06-07] MEDS: amLODIPine BESYLATE 10 MG TABLET PO SCH (08:37)
[2018-06-07] MEDS: oxyCODONE ER 15 MG TAB.ER.12H PO SCH ×2 (08:37→22:41)
[2018-06-07] MEDS: POLYETHYLENE GLYCOL 3350 17 GM PACKET. PO SCH (08:37)
[2018-06-07] MEDS: IV NORMAL SALINE 1000ML BAG 1,000 ML IV SCH (08:45)
[2018-06-07] MEDS ORDERED: CARV6.2511 PO (08:56)
[2018-06-07] MEDS ORDERED: OXYC1TAB19 PO (08:56)
[2018-06-07] MEDS: CIPROFLOXACIN 0.3% OPHTH SOLUTION 5ML BOTTLE. OU SCH ×4 (09:18→22:43)
[2018-06-07] MEDS: CARVEDILOL 6.25 MG TABLET. PO SCH ×2 (09:43→18:46)
[2018-06-07] MEDS: ALPRAZolam 0.25 MG TABLET PO PRN (09:44)
[2018-06-07] MEDS ORDERED: oxyCODONE/APAP 7.5/325 1 TAB TABLET PO ONE (10:00)
--- NOTE | 2018-06-07 10:05 | PDOC3 ---
Discharge Summary Visit Information Date of Admission: May 31, 2018 Date of Discharge: Jun 07, 2018 Admitting Diagnosis: New-onset ascites etiology most likely related to hypoal Final Diagnosis New-onset ascites etiology most likely related to hypoalbuminemia. Liver disease work up so far negative. No further work up deemed necessary from the GI stand point of view Status post umbilical hernia repair and with peritoneal dialysis catheter placement. Bacterial conjunctivitis resolved End-stage renal disease on hemodialysis looking to transition to PD Abdominal pain secondary to the ascites, very low suspicion for SBP or other surgical process given the benign nature of his physical exam Patient suffering from narcotic induced constipation most likely encouraged to take Miralax and docusate on adaily basis when taking narcotic medications Essential hypertension currently fairly controlled History of GERD Brief Hospital Course Allergies Allergies Coded Allergies Type Severity Reaction Last Updated Verified lisinopril Allergy Severe Swelling 06/03/18 Yes I S O L A T I O N *CONTACT* Allergy Unknown 06/03/18 Yes codeine Adverse Reaction Mild itching 06/03/18 Yes Vital Signs Vital Signs Date Time Temp Pulse Resp B/P (MAP) Pulse Ox O2 Delivery O2 Flow Rate FiO2 06/07/18 09:43 51 146/94 06/07/18 08:37 18 Room Air 06/07/18 07:00 97.7 97 97.7 06/06/18 17:55 1.0 Lab Results Laboratory Tests Test 06/06/18 04:49 06/07/18 03:45 White Blood Count 4.6 x10^3/uL (4.0-11.0) Red Blood Count 4.24 x10^6/uL (4.30-5.70) Hemoglobin 11.3 g/dL (13.0-17.5) Hematocrit 35.0 % (39.0-53.0) Mean Corpuscular Volume 83 fL (79-100) Mean Corpuscular Hemoglobin 27 pg (25-35) Mean Corpuscular Hemoglobin Concent 32 g/dL (31-37) Red Cell Distribution Width 17.8 % (11.5-14.5) Platelet Count 217 x10^3/uL (140-400) Neutrophils (%) (Auto) 63 % (31-73) Lymphocytes (%) (Auto) 13 % (24-48) Monocytes (%) (Auto) 12 % (0-9) Eosinophils (%) (Auto) 10 % (0-3) Basophils (%) (Auto) 2 % (0-3) Neutrophils # (Auto) 2.9 x10^3uL (1.8-7.7) Lymphocytes # (Auto) 0.6 x10^3/uL (1.0-4.8) Monocytes # (Auto) 0.6 x10^3/uL (0.0-1.1) Eosinophils # (Auto) 0.5 x10^3/uL (0.0-0.7) Basophils # (Auto) 0.1 x10^3/uL (0.0-0.2) Prothrombin Time 15.2 SEC (11.7-14.0) Prothromb Time International Ratio 1.2 (0.8-1.1) Sodium Level 138 mmol/L (136-145) 136 mmol/L (136-145) Potassium Level 4.1 mmol/L (3.5-5.1) 4.4 mmol/L (3.5-5.1) Chloride Level 100 mmol/L (98-107) 100 mmol/L (98-107) Carbon Dioxide Level 29 mmol/L (21-32) 30 mmol/L (21-32) Anion Gap 9 (6-14) 6 (6-14) Blood Urea Nitrogen 37 mg/dL (8-26) 48 mg/dL (8-26) Creatinine 5.9 mg/dL (0.7-1.3) 6.4 mg/dL (0.7-1.3) Estimated GFR (Cockcroft-Gault) 12.1 11.1 BUN/Creatinine Ratio 6 (6-20) Glucose Level 136 mg/dL (70-99) 106 mg/dL (70-99) Calcium Level 8.2 mg/dL (8.5-10.1) 8.2 mg/dL (8.5-10.1) Total Bilirubin 0.3 mg/dL (0.2-1.0) Aspartate Amino Transf (AST/SGOT) 11 U/L (15-37) Alanine Aminotransferase (ALT/SGPT) 10 U/L (16-63) Alkaline Phosphatase 86 U/L (46-116) Total Protein 5.0 g/dL (6.4-8.2) Albumin 2.2 g/dL (3.4-5.0) Albumin/Globulin Ratio 0.8 (1.0-1.7) Laboratory Tests Test 06/07/18 03:45 Sodium Level 136 mmol/L (136-145) Potassium Level 4.4 mmol/L (3.5-5.1) Chloride Level 100 mmol/L (98-107) Carbon Dioxide Level 30 mmol/L (21-32) Anion Gap 6 (6-14) Blood Urea Nitrogen 48 mg/dL (8-26) Creatinine 6.4 mg/dL (0.7-1.3) Estimated GFR (Cockcroft-Gault) 11.1 Glucose Level 106 mg/dL (70-99) Calcium Level 8.2 mg/dL (8.5-10.1) Brief Hospital Course Patient is a 53-year-old gentleman with past apical history of end-stage renal disease on hemodialysis who has been admitted several times over the last month for a similar presentation. The patient comes in complaining with abdominal pain he was dismissed from this institution approximately 2-3 days ago he has been evaluated by GI and hepatic workup has been so far negative. On his last hospital admission ceruloplasmin level was requested this is not available yet but unlikely that this patient is suffering from Link's disease. The patient denies dietary transgressions he says that he does not drink excessive fluids and he mainly eats eyes throughout the day he has not been quantifying the amount of cups of ice that he takes in a day. The patient denies chills no nausea no vomiting discomfort is mainly from this ascites that seems to stem from his underlying renal disease. He has dialysis scheduled for today but he did not receive treatment. We have consulted nephrology for management of his dialysis. The patient denies fever no cold-like symptoms no chest pain or angina type described by the patient. He denies palpitations no syncopal episodes he denies black tarry stools no peripheral edema is reported. We have been asked to admit the patient for a possible paracentesis. The patient is not exhibiting increased work of breathing mainly is just a discomfort due to his ascites patient does not exhibit signs of peritonitis bowel sounds are present. Plan of care explained in detail and all concerns were addressed to the best of my abilities Patient was admitted to the medical floor he was seen in consultation by GI nephrology and surgery. The patient had a very prolonged hospital stay since he required placement off a dialysis catheter for peritoneal dialysis. The patient also had 6.6 L of ascitic fluid taken out of his abdomen. This improved his work of breathing he received hemodialysis as usual with no complications. Of note is that the patient has exhibited drug-seeking behavior and unfortunately is unable to understand the grave implications off addiction to narcotics.. I have tried to provide reassurance and encouraged him to follow up with pain management in the outpatient setting. A limited supply of Percocet will be given to the patient and encouraged him to follow up with his physicians in the outpatient setting Signs and symptoms of alarm discussed prior to discharge CONCERNS WERE ADDRESSED TO THE BEST OF MY ABILITIES. HE IS HEMODYNAMICALLY STABLE AND MEDICALLY OPTIMIZED FOR DISCHARGE Greater than 35 minutes spent in the discharge present the patient in counseling coordination of care and arrangements are safe discharge General: Alert, Oriented X3, Cooperative, No acute distress Heart: Regular rate, Normal S1, Normal S2 Lungs: Clear, Other Abdomen: Soft, Other (TTP, pd cath in place) Extremities: No clubbing, No cyanosis Skin: No rashes, No breakdown Discharge Information Condition at Discharge: Improved Follow Up: Weeks Disposition/Orders: D/C to Home Scheduled Amlodipine Besylate (Amlodipine Besylate) 10 Mg Tablet, 10 MG PO DAILY, ( Reported) Entered as Reported by: AQUILINO DAVIDSON on 01/18/18 1456 Last Action: Continued on 05/31/181729 by ZAK COTTO MD Aspirin (Aspirin Ec) 325 Mg Tablet.dr, 325 MG PO [id number] for 30 Days, #30 Ref 2 Prescribed by: MICHAEL CALDWELL on 10/25/17 1112 Last Action: Continued on 05/31/181729 by ZAK COTTO MD Calcium Carbonate/Vitamin D3 (Oyster Shell 500 Mg + Vit D Tb) 1 Each Tablet, 1 TAB PO BIDWMEALS for 30 Days, #60 Prescribed by: KATHERINE WARD on 01/31/18 0750 Last Action: Continued on 05/31/181729 by ZAK COTTO MD Carvedilol (Carvedilol ) 6.25 Mg Tablet, 6.25 MG PO BIDWMEALS for CARDIAC for 30 Days, #60 Prescribed by: ZAK COTTO MD on 06/07/18 8950 Clonidine Hcl (Clonidine Hcl) 0.1 Mg Tablet, 0.1 MG PO TID, (Reported) Entered as Reported by: AQUILINO DAVIDSON on 01/18/181454 Last Action: Continued on 05/31/181729 by ZAK COTTO MD Ferrous Sulfate (Feosol) 325 Mg Tablet, 325 MG PO BIDWMEALS for 30 Days, #60 Prescribed by: KATHERINE WARD on 01/31/18749 Last Action: Continued on 05/31/181729 by ZAK COTTO MD Furosemide (Furosemide) 40 Mg Tablet, 40 MG PO BID92 for 30 Days, #60 Prescribed by: KATHERINE WARD on 01/31/18749 Last Action: Continued on 05/31/181729 by ZAK COTTO MD Hydralazine Hcl (Hydralazine Hcl) 50 Mg Tablet, 1 TAB PO TID, #90 Ref 5 ( Reported) Entered as Reported by: AQUILINO DAVIDSON on 01/18/181454 Last Action: Converted on 05/31/181729 by ZAK COTTO MD Scheduled PRN Alprazolam (Alprazolam) 0.25 Mg Tablet, 0.25 MG PO PRN BID PRN for ANXIETY / AGITATION for 10 Days Prescribed by: KATHERINE WARD on 01/31/18749 Last Action: Continued on 05/31/181729 by ZAK COTTO MD Hydrocodone Bit/Acetaminophen (Hydrocodone-Apap 5-325 ) 1 Each Tablet, 1 TAB PO PRN Q6HRS PRN for SEVERE PAIN, #20 Prescribed by: KATHERINE WARD on 01/31/18749 Last Action: Continued on 05/31/181729 by ZAK COTTO MD Oxycodone/Apap 7.5-325 (Percocet 7.5-325 Mg Tablet ) 1 Each Tablet, 1 TAB PO PRN Q6HRS PRN for PAIN for 3 Days, #12 Ref 0 Prescribed by: ZAK COTTO MD on 06/07/18 0856 Discontinued Medications Carvedilol (Carvedilol ) 12.5 Mg Tablet, 12.5 MG PO BIDWMEALS, (Reported) Entered as Reported by: AQUILINO DAVIDSON on 01/18/181454 Last Action: Continued on 05/31/18 1730 by MD YADIEL MANRIQUEZ HECTOR M MD Jun 07, 2018 10:05
[2018-06-07 11:00] VITALS: BP 117/78
--- NOTE | 2018-06-07 13:26 | PDOC ---
Provider Note Provider Note SURG c/o abdominal pain abd is distended, umbilicus TTP ascites ESRD s/p PD cath placement no new surgical recs paracentesis/drainage per PD cath per renal will sign off see in office for follow up Thanks LUZ ELENA HERRERA MD Jun 07, 2018 13:26
[2018-06-07] MEDS ORDERED: IV NORMAL SALINE 1000ML BAG 1,000 ML IV PRN ×2 (13:51)
[2018-06-07] MEDS ORDERED: DIALYSIS PATIENT. MC PRN ×2 (14:00)
[2018-06-07] MEDS ORDERED: LIDOCAINE 1% PF 2 ML VIAL. INJ ONE (14:00)
--- NOTE | 2018-06-07 14:39 | PDOC ---
Renal-Progress Notes Subjective Notes Notes STILL HAS SOME INCISIONAL PAIN History of Present Illness Hx of present illness STABLE Vitals Vitals Vital Signs Date Time Temp Pulse Resp B/P (MAP) Pulse Ox O2 Delivery O2 Flow Rate FiO2 06/07/18 12:37 16 Room Air 06/07/18 11:00 97.5 48 117/78 (91) 96 97.5 06/06/18 17:55 1.0 Weight Weight [ ] I.O. Intake and Output Intake and Output 06/07/18 06:59 Intake Total 1480 ml Output Total 675 ml Balance 805 ml Intake Oral 1480 ml Output Urine Total 675 ml Labs Labs Laboratory Tests Test 06/07/18 03:45 Sodium Level 136 mmol/L (136-145) Potassium Level 4.4 mmol/L (3.5-5.1) Chloride Level 100 mmol/L (98-107) Carbon Dioxide Level 30 mmol/L (21-32) Anion Gap 6 (6-14) Blood Urea Nitrogen 48 mg/dL (8-26) Creatinine 6.4 mg/dL (0.7-1.3) Estimated GFR (Cockcroft-Gault) 11.1 Glucose Level 106 mg/dL (70-99) Calcium Level 8.2 mg/dL (8.5-10.1) Review of Systems Constitutional: yes: weakness, alert, oriented Ears/Nose/Throat: Yes: no symptom reported Eyes: Yes: no symptom reported Pulmonary: Yes no symptom reported Cardiovascular: Yes no symptom reported Gastrointestional: Yes: abdominal pain Genitourinary: Yes: no symptom reported Musculoskeletal: Yes: no symptom reported Skin: Yes no symptom reported Psychiatric/Neurological: Yes: no symptom reported Endocrine: Yes: no symptom reported Hematologic/Lymphatic: Yes: no symptom reported Physical Exam General Appearance: no apparent distress Skin: warm Respiratory: bilateral CTA Heart: S1S2, RRR Abdomen: soft, bowel sounds present, rectal tube Genitourinary: bladder flat, no mass Extremities: pulses present, no edema, atrophy Neurology: alert, oriented, follow commands Musculoskeletal: Osteoarthritis Assessment Assessment IMP ESRD ANEMIA ASCITES HTN S/P PD CATHETER AND HERNIA REPAIR PLAN HD TODAY UF TO DW WILL DRAIN ASCITES VIA PD CATHETER WHEN NEEDED WILL PLAN FOR PD TO START IN ABOUT 3-4 WEEKS OP D/W DR HERRERA UPDATED OP CLINIC WILL FOLLOW OSIRIS MEADOWS MD Jun 07, 2018 14:39
--- NOTE | 2018-06-07 14:51 | PDOC ---
G I PROGRESS NOTE Subjective Sore incisionally. Physical Exam Lungs clear. RRR Abdomen with likely some fluid; mildly tender. Review of Relevant I have reviewed the following items benjamin (where applicable) has been applied. Labs Laboratory Tests Test 06/06/18 04:49 06/07/18 03:45 White Blood Count 4.6 x10^3/uL (4.0-11.0) Red Blood Count 4.24 x10^6/uL (4.30-5.70) Hemoglobin 11.3 g/dL (13.0-17.5) Hematocrit 35.0 % (39.0-53.0) Mean Corpuscular Volume 83 fL (79-100) Mean Corpuscular Hemoglobin 27 pg (25-35) Mean Corpuscular Hemoglobin Concent 32 g/dL (31-37) Red Cell Distribution Width 17.8 % (11.5-14.5) Platelet Count 217 x10^3/uL (140-400) Neutrophils (%) (Auto) 63 % (31-73) Lymphocytes (%) (Auto) 13 % (24-48) Monocytes (%) (Auto) 12 % (0-9) Eosinophils (%) (Auto) 10 % (0-3) Basophils (%) (Auto) 2 % (0-3) Neutrophils # (Auto) 2.9 x10^3uL (1.8-7.7) Lymphocytes # (Auto) 0.6 x10^3/uL (1.0-4.8) Monocytes # (Auto) 0.6 x10^3/uL (0.0-1.1) Eosinophils # (Auto) 0.5 x10^3/uL (0.0-0.7) Basophils # (Auto) 0.1 x10^3/uL (0.0-0.2) Prothrombin Time 15.2 SEC (11.7-14.0) Prothromb Time International Ratio 1.2 (0.8-1.1) Sodium Level 138 mmol/L (136-145) 136 mmol/L (136-145) Potassium Level 4.1 mmol/L (3.5-5.1) 4.4 mmol/L (3.5-5.1) Chloride Level 100 mmol/L (98-107) 100 mmol/L (98-107) Carbon Dioxide Level 29 mmol/L (21-32) 30 mmol/L (21-32) Anion Gap 9 (6-14) 6 (6-14) Blood Urea Nitrogen 37 mg/dL (8-26) 48 mg/dL (8-26) Creatinine 5.9 mg/dL (0.7-1.3) 6.4 mg/dL (0.7-1.3) Estimated GFR (Cockcroft-Gault) 12.1 11.1 BUN/Creatinine Ratio 6 (6-20) Glucose Level 136 mg/dL (70-99) 106 mg/dL (70-99) Calcium Level 8.2 mg/dL (8.5-10.1) 8.2 mg/dL (8.5-10.1) Total Bilirubin 0.3 mg/dL (0.2-1.0) Aspartate Amino Transf (AST/SGOT) 11 U/L (15-37) Alanine Aminotransferase (ALT/SGPT) 10 U/L (16-63) Alkaline Phosphatase 86 U/L (46-116) Total Protein 5.0 g/dL (6.4-8.2) Albumin 2.2 g/dL (3.4-5.0) Albumin/Globulin Ratio 0.8 (1.0-1.7) Laboratory Tests Test 06/07/18 03:45 Sodium Level 136 mmol/L (136-145) Potassium Level 4.4 mmol/L (3.5-5.1) Chloride Level 100 mmol/L (98-107) Carbon Dioxide Level 30 mmol/L (21-32) Anion Gap 6 (6-14) Blood Urea Nitrogen 48 mg/dL (8-26) Creatinine 6.4 mg/dL (0.7-1.3) Estimated GFR (Cockcroft-Gault) 11.1 Glucose Level 106 mg/dL (70-99) Calcium Level 8.2 mg/dL (8.5-10.1) Vitals/I & O Vital Sign - Last 24 Hours 06/06/18 06/06/18 06/06/18 06/06/18 15:03 16:36 16:37 17:55 Temp 98.3 98.3 Pulse 56 57 Resp 17 B/P (MAP) 117/68 (84) 117/68 Pulse Ox 95 95 95 O2 Delivery Room Air Room Air O2 Flow Rate 1.0 06/06/18 06/06/18 06/06/18 06/06/18 19:50 20:20 21:27 21:28 Temp 98.0 98.0 Pulse 55 62 Resp 20 18 B/P (MAP) 107/68 (81) 112/73 Pulse Ox 92 O2 Delivery Room Air Room Air Room Air 06/06/18 06/06/18 06/07/18 06/07/18 21:29 23:30 03:50 06:42 Temp 97.5 98.2 97.5 98.2 Pulse 62 53 51 Resp 18 20 18 B/P (MAP) 112/73 109/63 (78) 112/75 (87) Pulse Ox 95 94 94 O2 Delivery Room Air Room Air Room Air 06/07/18 06/07/18 06/07/18 06/07/18 07:00 07:50 08:00 08:36 Temp 97.7 97.7 Pulse 47 51 Resp 16 16 B/P (MAP) 126/76 (93) 146/94 Pulse Ox 97 O2 Delivery Room Air Room Air Room Air 06/07/18 06/07/18 06/07/18 06/07/18 08:36 08:37 08:37 09:43 Pulse 51 51 51 Resp 18 B/P (MAP) 146/94 146/94 146/94 O2 Delivery Room Air 06/07/18 06/07/18 06/07/18 06/07/18 10:04 11:00 11:04 12:37 Temp 97.5 97.5 Pulse 48 Resp 16 20 16 16 B/P (MAP) 117/78 (91) Pulse Ox 96 O2 Delivery Room Air Room Air Room Air Room Air Intake and Output 06/06/18 06/06/18 06/07/18 15:00 23:00 07:00 Intake Total 480 ml 600 ml 400 ml Output Total 375 ml 300 ml Balance 480 ml 225 ml 100 ml Problem List Problems Medical Problems: (1) Dialysis patient Status: Acute Assessment "Nephrogenic" ascites, s/p PD catheter placement. Post-op pain continues to a degree. Plan of Care: Continue current Tx, MARIA ELENA Howell MD Jun 07, 2018 14:51
--- NOTE | 2018-06-07 19:03 | NUR ---
Patient is refusing to be discharged home today. Says he drove himself here and has no other way of getting home. Patient was offered a cab and refused because no one would be able to pick up driver his car. Dr. Keen notified of patients refusal.
[2018-06-07] MEDS ORDERED: MORPHINE SULFATE 4 MG/ML VIAL. IV PRN (19:30)
[2018-06-07 19:40] VITALS: BP 148/89
[2018-06-07 23:00] VITALS: BP 137/85
[2018-06-08 03:45] VITALS: BP 112/74
[2018-06-08] MEDS: HEPARIN for SUB-Q USE 5,000 UNIT/ML VIAL. SQ SCH (05:38)
[2018-06-08 07:00] VITALS: BP 122/82
[2018-06-08] MEDS ORDERED: ONDANSETRON ODT 4 MG TAB.RAPDIS. PO PRN (08:00)
--- NOTE | 2018-06-08 10:11 | NUR ---
Discharge Note: FRANKIE GARCIA T2 [facility] Patient did not take any scheduled medications this am prior to discharge. Patient did not have any prn pain medications prior to discharge but did receive prn zofran d/t nausea Discharge instructions and discharge home medications reviewed with Patient and a copy given. All questions have been answered and understanding verbalized. The following instructions and handouts were given: follow up, dialysis, peritoneal dialysis, hernia repair, pain management Patient discharged to Home or Self Care with Self via Wheelchair
[2018-07-05] MEDS ORDERED: HYDR-2868 PO (15:39)
== END 2018-06-08 10:14 | disposition home or self-care (01) | DRG 353 ==
LOC: ER 13:40 → 2 SOUTH 15:24
PROVIDERS: ADMIT Internal Medicine; ATTEND Internal Medicine
PROC: 5A1D70Z Performance of Urinary Filtration, Intermittent, Less than 6 Hours Per Day (ICD-10-PCS; 2018-06-01)
PROC: 0W9G3ZZ Drainage of Peritoneal Cavity, Percutaneous Approach (ICD-10-PCS; 2018-06-02)
PROC: 0WHG43Z Insertion of Infusion Device into Peritoneal Cavity, Percutaneous Endoscopic Approach (ICD-10-PCS; principal; 2018-06-03 12:00)
PROC: 0WQF4ZZ Repair Abdominal Wall, Percutaneous Endoscopic Approach (ICD-10-PCS; 2018-06-03 12:00)
PROC: 5A1D70Z Performance of Urinary Filtration, Intermittent, Less than 6 Hours Per Day (ICD-10-PCS; 2018-06-04)
PROC: 5A1D70Z Performance of Urinary Filtration, Intermittent, Less than 6 Hours Per Day (ICD-10-PCS; 2018-06-07)
DX: K42.9 Umbilical hernia without obstruction or gangrene (principal); N18.6 End stage renal disease; I12.0 Hypertensive chronic kidney disease with stage 5 chronic kidney disease or end stage renal disease; R18.8 Other ascites; K76.6 Portal hypertension; M19.90 Unspecified osteoarthritis, unspecified site; F41.9 Anxiety disorder, unspecified; J45.909 Unspecified asthma, uncomplicated; H10.89 Other conjunctivitis; K21.9 Gastro-esophageal reflux disease without esophagitis; G62.9 Polyneuropathy, unspecified; I70.0 Atherosclerosis of aorta; D64.9 Anemia, unspecified; K59.03 Drug induced constipation; T40.605A Adverse effect of unspecified narcotics, initial encounter; Y92.89 Other specified places as the place of occurrence of the external cause; Z76.5 Malingerer [conscious simulation]; Z86.73 Personal history of transient ischemic attack (TIA), and cerebral infarction without residual deficits; Z99.2 Dependence on renal dialysis; Z88.5 Allergy status to narcotic agent; Z88.8 Allergy status to other drugs, medicaments and biological substances; Z91.041 Radiographic dye allergy status; Z82.3 Family history of stroke; Z82.49 Family history of ischemic heart disease and other diseases of the circulatory system
CPT/HCPCS: 36415; 49083; 71045; 74176; 80048; 80053; 80307; 81001; 82962; 83690; 83880; 84484; 85025; 85610; 93005; 96374; 96375; A7015; J0360; J0696; J0780; J1100; J1170; J2001; J2270; J2405; J2704; J2710; J3010; J3490; J7030; P9046; Q0162; 99285-25

== ENCOUNTER 2018-07-03 15:22 | Inpatient (IN) | payer OTHER ==
[~2018-07-03] VITALS: Ht 172.7 cm; Wt 63.7 kg
[2018-07-03] VITALS (7 sets, daily range): BP systolic 152–202; BP diastolic 94–126
[~2018-07-03 15:22] MED LIST changes: +CARV6.2511 PO; +OXYC1TAB19 PO
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
[2018-07-03] MEDS ORDERED: LABETALOL 20 MG/4 ML DISP.SYRIN. IVP ONE (16:45)
--- NOTE | 2018-07-03 16:51 | RAD ---
CHEST AP ONLY Clinical Indication: SOA Comparison: 05/31/2018 portable chest x-ray exam. Findings: Portable frontal view chest obtained with the patient upright. Postoperative cervical spine fusion noted. Mild cardiomegaly is suspected and pulmonary vasculature congestion noted.. No focal consolidation. There is no pneumothorax. No pleural effusion is appreciated. No acute bone abnormality. IMPRESSION: Congestive heart failure suspected. Consider follow-up two-view chest x-ray exam. Electronically signed by: Manav Luke MD (07/03/2018 4:48 PM) [facility]
[2018-07-03 16:52] LABS: BASO # 0.1 x10^3/uL (0.0-0.2); BASO % 2 % (0-3); EOS # 0.1 x10^3/uL (0.0-0.7); EOS % 3 % (0-3); HEMATOCRIT 38.8 % (39.0-53.0); HEMOGLOBIN 12.4 g/dL (13.0-17.5); LYMPH # 0.8 x10^3/uL (1.0-4.8); LYMPH % 15 % (24-48); MEAN CORPUSCULAR HEMOGLOBIN 26 pg (25-35); MEAN CORPUSCULAR HGB CONC 32 g/dL (31-37); MEAN CORPUSCULAR VOLUME 83 fL (79-100); MONO # 0.6 x10^3/uL (0.0-1.1); MONO % 11 % (0-9); NEUT # 3.7 x10^3uL (1.8-7.7); NEUT % 70 % (31-73); PLATELET COUNT 244 x10^3/uL (140-400); RED CELL DISTRIBUTION WIDTH 18.3 % (11.5-14.5); WHITE BLOOD COUNT 5.3 x10^3/uL (4.0-11.0)
[2018-07-03] MEDS ORDERED: cefTRIAXone IV Push 1 GM VIAL. IVP ONE (17:30)
--- NOTE | 2018-07-03 17:35 | RAD ---
Abdominal and Pelvis CT, Without Contrast: History: Abdominal pain. Comparison: None. Procedure: Axial images are obtained of the abdomen and pelvis, without IV or oral contrast. CT Abdomen without Contrast: Findings: Evaluation of solid organs is limited without contrast. Evaluation of stomach and bowel is limited without oral contrast. There is a tiny left pleural effusion. There is a moderate ascites. Liver: Normal. Spleen: Normal. Pancreas: Normal. Adrenal Glands: Normal. Kidneys: Small. There is no free air There is no lymphadenopathy. Impression: Please see CT Pelvis without Contrast. End Impression. CT Pelvis without Contrast: Findings: There is a peritoneal catheter seen. The urinary bladder appears normal. There is moderate free fluid. There is no lymphadenopathy. There is no pericolonic inflammation identified. Impression: Moderate ascites. End impression PQRS Compliance Statement: One or more of the following individualized dose reduction techniques were utilized for this examination: 1. Automated exposure control 2. Adjustment of the mA and/or kV according to patient size 3. Use of iterative reconstruction technique Electronically signed by: Brando Escobar III, MD (07/03/2018 5:32 PM) [id number]
[2018-07-03 17:39] LABS: CALCIUM 7.6 mg/dL (8.5-10.1); CREATININE 7.4 mg/dL (0.7-1.3); GFR 9.4
[2018-07-03 17:45] LABS: ALBUMIN 2.5 g/dL (3.4-5.0); DIRECT BILIRUBIN 0.3 mg/dL (0.0-0.2); TOTAL BILIRUBIN 0.6 mg/dL (0.2-1.0); TOTAL PROTEIN 6.2 g/dL (6.4-8.2)
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
[2018-07-03] MEDS ORDERED: ONDANSETRON PF 4 MG/2 ML VIAL. IV PRN (18:00)
[2018-07-03] MEDS: MORPHINE SULFATE 2 MG/ML VIAL. IV PRN ×2 (18:42→20:52)
[2018-07-03] MEDS: hydrALAZINE 20 MG/ML VIAL. IVP PRN (20:52)
[2018-07-03] MEDS: cloNIDine HCL 0.1 MG TABLET PO SCH (21:48)
[2018-07-03] MEDS ORDERED: HYDROcodone/APAP 5/325MG 1 TAB TABLET PO PRN (22:45)
[2018-07-03] MEDS ORDERED: ALPRAZolam 0.25 MG TABLET PO PRN (22:45)
[2018-07-03] MEDS ORDERED: FUROSEMIDE 40 MG/4 ML VIAL. IVP ONE (23:00)
[2018-07-04] VITALS (14 sets, daily range): BP systolic 122–172; BP diastolic 65–114
[2018-07-04] MEDS: MORPHINE SULFATE 2 MG/ML VIAL. IV PRN (00:22)
[2018-07-04 04:09] LABS: BASO # 0.1 x10^3/uL (0.0-0.2); BASO % 2 % (0-3); EOS # 0.2 x10^3/uL (0.0-0.7); EOS % 4 % (0-3); HEMATOCRIT 35.3 % (39.0-53.0); HEMOGLOBIN 11.4 g/dL (13.0-17.5); LYMPH # 0.8 x10^3/uL (1.0-4.8); LYMPH % 16 % (24-48); MEAN CORPUSCULAR HEMOGLOBIN 26 pg (25-35); MEAN CORPUSCULAR HGB CONC 32 g/dL (31-37); MEAN CORPUSCULAR VOLUME 82 fL (79-100); MONO # 0.7 x10^3/uL (0.0-1.1); MONO % 14 % (0-9); NEUT # 3.2 x10^3uL (1.8-7.7); NEUT % 65 % (31-73); PLATELET COUNT 231 x10^3/uL (140-400); RED BLOOD COUNT 4.32 x10^6/uL (4.30-5.70); RED CELL DISTRIBUTION WIDTH 18.2 % (11.5-14.5); WHITE BLOOD COUNT 4.9 x10^3/uL (4.0-11.0)
[2018-07-04 04:32] LABS: CALCIUM 7.4 mg/dL (8.5-10.1); CREATININE 7.5 mg/dL (0.7-1.3); GFR 9.2
[2018-07-04] MEDS: oxyCODONE/APAP 7.5/325 1 TAB TABLET PO PRN ×3 (06:12→19:26)
[2018-07-04] MEDS: FERROUS SULFATE 325 MG TABLET. PO SCH ×2 (08:00→17:01)
[2018-07-04] MEDS: CARVEDILOL 6.25 MG TABLET. PO SCH ×3 (08:00→17:01)
[2018-07-04] MEDS: CALCIUM CARB/VIT D3 500/200 TABLET. PO SCH ×2 (08:00→17:01)
[2018-07-04] MEDS: ASPIRIN ENTERIC COATED 325 MG TABLET.DR. PO SCH (08:00)
--- NOTE | 2018-07-04 08:54 | NUR ---
Routine consult called to Dr. Bhat, spoke to Yaquelin at the office at [phone].
[2018-07-04] MEDS: amLODIPine BESYLATE 10 MG TABLET PO SCH ×2 (09:00→12:35)
[2018-07-04] MEDS: cloNIDine HCL 0.1 MG TABLET PO SCH ×3 (09:00→20:57)
--- NOTE | 2018-07-04 09:11 | NUR ---
IP: Pt has a recent hx of + mrsa screen on 05/25/18. Pt to be in contact precautions until there are 2 negative screens 7 days apart.
--- NOTE | 2018-07-04 10:29 | PDOC ---
PROGRESS NOTES Chief Complaint Chief Complaint Chief Complaint SEEN IN ER 53-year-old gentleman with past apical history of end-stage renal disease on peritoneal who has been admitted several times over the last month The patient comes in complaining with abdominal pain he was dismissed from this institution RECENTLY NOW presents with acute pulmonary edema he has been evaluated by GI and hepatic workup has been so far negative notes abdominal pain for the past 2-3 days. He used to use hemodialysis however over the past 2 weeks is been switched over to peritoneal dialysis because of pain in the fistula during hemodialysis. sharp shooting nonradiating pain.// is moderate History of Present Illness History of Present Illness Assessment/Plan Assessment/Plan IMPRESSION: malignant htn, severe, remains poor control Congestive heart failure acute. VOLUME overload likely , flash pulm edema pulmonary vasculature congestion noted.CXR severe concentric left ventricular hypertrophy. on recent ECHO 05/31 acute hypoxic resp failure Moderate ascites. etiology most likely related to hypoalbuminemia. Liver disease work up so far negative. No further work up deemed necessary from the GI stand point of view Status post umbilical hernia repair and with peritoneal dialysis catheter placement. End-stage renal disease recent transition to PD Abdominal pain secondary to the ascites, very low suspicion for SBP narcotic induced constipation most likely encouraged to take Miralax and docusate on a daily basis when taking narcotic medications Essential hypertension , uncontrolled History of GERD MILD TROPONIN I ELEVATION, LEAK// CKD plan admit GI consult nephrology consult inc hydralazine to 75 mg po tid consider paracentesis iv lasix 40 mg x 1 07/03 o2 support iv hydralazine 10 mg q 4 hrs prn bp support HOME MEDS ICU BED 36 min cc time Vitals Vitals Vital Signs Date Time Temp Pulse Resp B/P (MAP) Pulse Ox O2 Delivery O2 Flow Rate FiO2 07/04/18 10:07 70 156/104 (121) 91 Room Air 07/04/18 09:01 98.3 98.3 07/04/18 06:00 14 07/03/18 20:52 2.0 Physical Exam General: Alert, Oriented X3, Cooperative, mild distress Heart: Regular rate, Gallops Lungs: Clear, Crackles, Other (less distress) Abdomen: Normal bowel sounds, Soft, Other (mild tenderness) Extremities: No cyanosis Skin: No significant lesion Labs LABS Laboratory Tests Test 07/03/18 16:25 07/03/18 17:20 07/04/18 03:50 White Blood Count 5.3 x10^3/uL (4.0-11.0) 4.9 x10^3/uL (4.0-11.0) Red Blood Count 4.70 x10^6/uL (4.30-5.70) 4.32 x10^6/uL (4.30-5.70) Hemoglobin 12.4 g/dL (13.0-17.5) 11.4 g/dL (13.0-17.5) Hematocrit 38.8 % (39.0-53.0) 35.3 % (39.0-53.0) Mean Corpuscular Volume 83 fL (79-100) 82 fL (79-100) Mean Corpuscular Hemoglobin 26 pg (25-35) 26 pg (25-35) Mean Corpuscular Hemoglobin Concent 32 g/dL (31-37) 32 g/dL (31-37) Red Cell Distribution Width 18.3 % (11.5-14.5) 18.2 % (11.5-14.5) Platelet Count 244 x10^3/uL (140-400) 231 x10^3/uL (140-400) Neutrophils (%) (Auto) 70 % (31-73) 65 % (31-73) Lymphocytes (%) (Auto) 15 % (24-48) 16 % (24-48) Monocytes (%) (Auto) 11 % (0-9) 14 % (0-9) Eosinophils (%) (Auto) 3 % (0-3) 4 % (0-3) Basophils (%) (Auto) 2 % (0-3) 2 % (0-3) Neutrophils # (Auto) 3.7 x10^3uL (1.8-7.7) 3.2 x10^3uL (1.8-7.7) Lymphocytes # (Auto) 0.8 x10^3/uL (1.0-4.8) 0.8 x10^3/uL (1.0-4.8) Monocytes # (Auto) 0.6 x10^3/uL (0.0-1.1) 0.7 x10^3/uL (0.0-1.1) Eosinophils # (Auto) 0.1 x10^3/uL (0.0-0.7) 0.2 x10^3/uL (0.0-0.7) Basophils # (Auto) 0.1 x10^3/uL (0.0-0.2) 0.1 x10^3/uL (0.0-0.2) Sodium Level 136 mmol/L (136-145) 137 mmol/L (136-145) Potassium Level 4.0 mmol/L (3.5-5.1) 4.0 mmol/L (3.5-5.1) Chloride Level 101 mmol/L (98-107) 102 mmol/L (98-107) Carbon Dioxide Level 21 mmol/L (21-32) 21 mmol/L (21-32) Anion Gap 14 (6-14) 14 (6-14) Blood Urea Nitrogen 63 mg/dL (8-26) 64 mg/dL (8-26) Creatinine 7.4 mg/dL (0.7-1.3) 7.5 mg/dL (0.7-1.3) Estimated GFR (Cockcroft-Gault) 9.4 9.2 Glucose Level 138 mg/dL (70-99) 95 mg/dL (70-99) Calcium Level 7.6 mg/dL (8.5-10.1) 7.4 mg/dL (8.5-10.1) Total Bilirubin 0.6 mg/dL (0.2-1.0) Direct Bilirubin 0.3 mg/dL (0.0-0.2) Aspartate Amino Transf (AST/SGOT) 13 U/L (15-37) Alanine Aminotransferase (ALT/SGPT) 10 U/L (16-63) Alkaline Phosphatase 103 U/L (46-116) Troponin I Quantitative 0.092 ng/mL (0.000-0.055) Total Protein 6.2 g/dL (6.4-8.2) Albumin 2.5 g/dL (3.4-5.0) Lipase 301 U/L (73-393) Assessment and Plan Assessmemt and Plan Problems Medical Problems: (1) Pulmonary vascular congestion Status: Acute Comment Review of Relevant I have reviewed the following items benjamin (where applicable) has been applied. Labs Laboratory Tests Test 07/03/18 16:25 07/03/18 17:20 07/04/18 03:50 White Blood Count 5.3 x10^3/uL (4.0-11.0) 4.9 x10^3/uL (4.0-11.0) Red Blood Count 4.70 x10^6/uL (4.30-5.70) 4.32 x10^6/uL (4.30-5.70) Hemoglobin 12.4 g/dL (13.0-17.5) 11.4 g/dL (13.0-17.5) Hematocrit 38.8 % (39.0-53.0) 35.3 % (39.0-53.0) Mean Corpuscular Volume 83 fL (79-100) 82 fL (79-100) Mean Corpuscular Hemoglobin 26 pg (25-35) 26 pg (25-35) Mean Corpuscular Hemoglobin Concent 32 g/dL (31-37) 32 g/dL (31-37) Red Cell Distribution Width 18.3 % (11.5-14.5) 18.2 % (11.5-14.5) Platelet Count 244 x10^3/uL (140-400) 231 x10^3/uL (140-400) Neutrophils (%) (Auto) 70 % (31-73) 65 % (31-73) Lymphocytes (%) (Auto) 15 % (24-48) 16 % (24-48) Monocytes (%) (Auto) 11 % (0-9) 14 % (0-9) Eosinophils (%) (Auto) 3 % (0-3) 4 % (0-3) Basophils (%) (Auto) 2 % (0-3) 2 % (0-3) Neutrophils # (Auto) 3.7 x10^3uL (1.8-7.7) 3.2 x10^3uL (1.8-7.7) Lymphocytes # (Auto) 0.8 x10^3/uL (1.0-4.8) 0.8 x10^3/uL (1.0-4.8) Monocytes # (Auto) 0.6 x10^3/uL (0.0-1.1) 0.7 x10^3/uL (0.0-1.1) Eosinophils # (Auto) 0.1 x10^3/uL (0.0-0.7) 0.2 x10^3/uL (0.0-0.7) Basophils # (Auto) 0.1 x10^3/uL (0.0-0.2) 0.1 x10^3/uL (0.0-0.2) Sodium Level 136 mmol/L (136-145) 137 mmol/L (136-145) Potassium Level 4.0 mmol/L (3.5-5.1) 4.0 mmol/L (3.5-5.1) Chloride Level 101 mmol/L (98-107) 102 mmol/L (98-107) Carbon Dioxide Level 21 mmol/L (21-32) 21 mmol/L (21-32) Anion Gap 14 (6-14) 14 (6-14) Blood Urea Nitrogen 63 mg/dL (8-26) 64 mg/dL (8-26) Creatinine 7.4 mg/dL (0.7-1.3) 7.5 mg/dL (0.7-1.3) Estimated GFR (Cockcroft-Gault) 9.4 9.2 Glucose Level 138 mg/dL (70-99) 95 mg/dL (70-99) Calcium Level 7.6 mg/dL (8.5-10.1) 7.4 mg/dL (8.5-10.1) Total Bilirubin 0.6 mg/dL (0.2-1.0) Direct Bilirubin 0.3 mg/dL (0.0-0.2) Aspartate Amino Transf (AST/SGOT) 13 U/L (15-37) Alanine Aminotransferase (ALT/SGPT) 10 U/L (16-63) Alkaline Phosphatase 103 U/L (46-116) Troponin I Quantitative 0.092 ng/mL (0.000-0.055) Total Protein 6.2 g/dL (6.4-8.2) Albumin 2.5 g/dL (3.4-5.0) Lipase 301 U/L (73-393) Laboratory Tests Test 07/03/18 16:25 07/03/18 17:20 07/04/18 03:50 White Blood Count 5.3 x10^3/uL (4.0-11.0) 4.9 x10^3/uL (4.0-11.0) Red Blood Count 4.70 x10^6/uL (4.30-5.70) 4.32 x10^6/uL (4.30-5.70) Hemoglobin 12.4 g/dL (13.0-17.5) 11.4 g/dL (13.0-17.5) Hematocrit 38.8 % (39.0-53.0) 35.3 % (39.0-53.0) Mean Corpuscular Volume 83 fL (79-100) 82 fL (79-100) Mean Corpuscular Hemoglobin 26 pg (25-35) 26 pg (25-35) Mean Corpuscular Hemoglobin Concent 32 g/dL (31-37) 32 g/dL (31-37) Red Cell Distribution Width 18.3 % (11.5-14.5) 18.2 % (11.5-14.5) Platelet Count 244 x10^3/uL (140-400) 231 x10^3/uL (140-400) Neutrophils (%) (Auto) 70 % (31-73) 65 % (31-73) Lymphocytes (%) (Auto) 15 % (24-48) 16 % (24-48) Monocytes (%) (Auto) 11 % (0-9) 14 % (0-9) Eosinophils (%) (Auto) 3 % (0-3) 4 % (0-3) Basophils (%) (Auto) 2 % (0-3) 2 % (0-3) Neutrophils # (Auto) 3.7 x10^3uL (1.8-7.7) 3.2 x10^3uL (1.8-7.7) Lymphocytes # (Auto) 0.8 x10^3/uL (1.0-4.8) 0.8 x10^3/uL (1.0-4.8) Monocytes # (Auto) 0.6 x10^3/uL (0.0-1.1) 0.7 x10^3/uL (0.0-1.1) Eosinophils # (Auto) 0.1 x10^3/uL (0.0-0.7) 0.2 x10^3/uL (0.0-0.7) Basophils # (Auto) 0.1 x10^3/uL (0.0-0.2) 0.1 x10^3/uL (0.0-0.2) Sodium Level 136 mmol/L (136-145) 137 mmol/L (136-145) Potassium Level 4.0 mmol/L (3.5-5.1) 4.0 mmol/L (3.5-5.1) Chloride Level 101 mmol/L (98-107) 102 mmol/L (98-107) Carbon Dioxide Level 21 mmol/L (21-32) 21 mmol/L (21-32) Anion Gap 14 (6-14) 14 (6-14) Blood Urea Nitrogen 63 mg/dL (8-26) 64 mg/dL (8-26) Creatinine 7.4 mg/dL (0.7-1.3) 7.5 mg/dL (0.7-1.3) Estimated GFR (Cockcroft-Gault) 9.4 9.2 Glucose Level 138 mg/dL (70-99) 95 mg/dL (70-99) Calcium Level 7.6 mg/dL (8.5-10.1) 7.4 mg/dL (8.5-10.1) Total Bilirubin 0.6 mg/dL (0.2-1.0) Direct Bilirubin 0.3 mg/dL (0.0-0.2) Aspartate Amino Transf (AST/SGOT) 13 U/L (15-37) Alanine Aminotransferase (ALT/SGPT) 10 U/L (16-63) Alkaline Phosphatase 103 U/L (46-116) Troponin I Quantitative 0.092 ng/mL (0.000-0.055) Total Protein 6.2 g/dL (6.4-8.2) Albumin 2.5 g/dL (3.4-5.0) Lipase 301 U/L (73-393) Medications Current Medications Labetalol HCl (Normodyne Iv Push) 10 mg 1X ONCE IVP Last administered on at 18:03; Start 07/03/18 at 16:45; Stop 07/03/18 at 16:46; Status DC Ceftriaxone Sodium (Rocephin) 1 gm 1X ONCE IVP Last administered on 07/03/18at 18:40; Start 07/03/18 at 17:30; Stop 07/03/18 at 17:31; Status DC Ondansetron HCl (Zofran) 4 mg PRN Q8HRS PRN IV NAUSEA/VOMITING Last administered on 07/03/18at 18:40; Start 07/03/18 at 18:00; Stop 07/04/18 at 17:59 Morphine Sulfate (Morphine Sulfate) 2 mg PRN Q2HR PRN IV PAIN Last administered on 07/04/18at 00:22; Start 07/03/18 at 18:00; Stop 07/04/18 at 17:59 Amlodipine Besylate (Norvasc) 10 mg DAILY PO ; Start 07/04/18 at 09:00 Aspirin (Ecotrin) 325 mg DAILYWBKFT PO ; Start 07/04/18 at 08:00 Carvedilol (Coreg) 6.25 mg BIDWMEALS PO ; Start 07/04/18 at 08:00 Clonidine HCl (Catapres) 0.1 mg TID PO Last administered on 07/03/18at 21:48; Start 07/03/18 at 21:00 Hydralazine HCl (Apresoline) 50 mg TID PO Last administered on 07/03/18at 21:47 ; Start 07/03/18 at 21:00 Hydralazine HCl (Apresoline Inj) 20 mg PRN Q4HRS PRN IVP ELEVATED BP, SEE COMMENTS Last administered on 07/03/18at 20:52; Start 07/03/18 at 20:45 Alprazolam (Xanax) 0.25 mg PRN BID PRN PO ANXIETY / AGITATION; Start 07/03/18 at 22:45 Calcium/Vitamin D (Oscal D 500mg/ 200uts) 1 tab BIDWMEALS PO ; Start 07/04/18 at 08:00 Ferrous Sulfate (Feosol) 325 mg BIDWMEALS PO ; Start 07/04/18 at 08:00 Acetaminophen/ Hydrocodone Bitart (Lortab 5/325) 1 tab PRN Q6HRS PRN PO SEVERE PAIN; Start 07/03/18 at 22:45 Oxycodone/ Acetaminophen (Percocet 7.5/ 325) 1 tab PRN Q6HRS PRN PO PAIN Last administered on 07/04/18at 06:12; Start 07/03/18 at 22:45 Furosemide (Lasix) 40 mg 1X ONCE IVP Last administered on 07/04/18at 00:22; Start 07/03/18 at 23:00; Stop 07/03/18 at 23:01; Status DC Active Scripts Active Percocet 7.5-325 Mg Tablet (Oxycodone/Acetaminophen) 1 Each Tablet 1 Tab PO PRN Q6HRS PRN 3 Days Carvedilol (Carvedilol) 6.25 Mg Tablet 6.25 Mg PO BIDWMEALS 30 Days Hydrocodone-Apap 5-325 (Hydrocodone Bit/Acetaminophen) 1 Each Tablet 1 Tab PO PRN Q6HRS PRN Furosemide 40 Mg Tablet 40 Mg PO BID92 30 Days Oyster Shell 500 Mg + Vit D Tb (Calcium Carbonate/Vitamin D3) 1 Each Tablet 1 Tab PO BIDWMEALS 30 Days Alprazolam 0.25 Mg Tablet 0.25 Mg PO PRN BID PRN 10 Days Feosol (Ferrous Sulfate) 325 Mg Tablet 325 Mg PO BIDWMEALS 30 Days Aspirin Ec (Aspirin) 325 Mg Tablet.dr 325 Mg PO DAILYWBKFT 30 Days Reported Amlodipine Besylate 10 Mg Tablet 10 Mg PO DAILY Hydralazine Hcl 50 Mg Tablet 1 Tab PO TID Clonidine Hcl 0.1 Mg Tablet 0.1 Mg PO TID Vitals/I & O Vital Sign - Last 24 Hours 07/03/18 07/03/18 07/03/18 07/03/18 15:54 17:20 17:35 17:50 Temp 98.9 98.9 Pulse 92 83 84 82 Resp 24 18 17 16 B/P (MAP) 236/149 (178) 206/137 (160) 213/133 (159) 211/141 (164) Pulse Ox 89 94 98 100 O2 Delivery Room Air Nasal Cannula Nasal Cannula Nasal Cannula O2 Flow Rate 3.0 3.0 3.0 07/03/18 07/03/18 07/03/18 07/03/18 18:00 18:03 18:05 18:20 Pulse 82 81 68 68 Resp 16 16 17 B/P (MAP) 201/134 (156) 201/134 188/121 (143) 180/122 (141) Pulse Ox 94 99 99 O2 Delivery Nasal Cannula Nasal Cannula Nasal Cannula O2 Flow Rate 3.0 3.0 3.0 07/03/18 07/03/18 07/03/18 07/03/18 18:35 18:42 18:50 19:05 Pulse 70 70 72 Resp 16 20 19 17 B/P (MAP) 173/121 (138) 188/123 (144) 176/102 (126) Pulse Ox 99 97 95 O2 Delivery Nasal Cannula Room Air Nasal Cannula Nasal Cannula O2 Flow Rate 3.0 3.0 3.0 07/03/18 07/03/18 07/03/18 07/03/18 19:20 19:35 20:30 20:45 Temp 98.1 98.1 Pulse 72 72 74 Resp 16 17 16 B/P (MAP) 180/112 (134) 177/116 (136) 202/126 (151) Pulse Ox 96 95 92 O2 Delivery Nasal Cannula Nasal Cannula Room Air Room Air O2 Flow Rate 3.0 3.0 07/03/18 07/03/18 07/03/18 07/03/18 20:45 20:52 20:52 21:00 Pulse 76 75 76 Resp 16 20 B/P (MAP) 201/126 (151) 201/126 152/94 (113) Pulse Ox 100 95 100 O2 Delivery Room Air Nasal Cannula Room Air O2 Flow Rate 2.0 07/03/18 07/03/18 07/03/18 07/03/18 21:15 21:22 21:30 21:47 Pulse 78 80 79 Resp 21 19 B/P (MAP) 159/97 (117) 169/100 (123) 179/104 Pulse Ox 99 93 98 O2 Delivery Room Air Room Air Room Air 07/03/18 07/03/18 07/03/18 07/04/18 21:48 22:00 22:30 00:00 Pulse 79 78 78 Resp 20 16 B/P (MAP) 179/104 188/115 (139) 170/106 (127) Pulse Ox 95 93 O2 Delivery Room Air Room Air Room Air 07/04/18 07/04/18 07/04/18 07/04/18 00:00 00:22 01:00 02:00 Temp 98.4 98.4 Pulse 76 76 74 Resp 16 14 14 B/P (MAP) 151/92 (111) 152/92 (112) 162/98 (119) Pulse Ox 95 93 93 93 O2 Delivery Room Air Room Air Room Air Room Air 07/04/18 07/04/18 07/04/18 07/04/18 03:00 03:48 04:00 05:00 Temp 98.2 98.2 Pulse 74 79 76 Resp 16 16 16 B/P (MAP) 161/98 (119) 162/106 (124) 144/92 (109) Pulse Ox 95 95 95 O2 Delivery Room Air Room Air Room Air Room Air 07/04/18 07/04/18 07/04/18 07/04/18 06:00 06:12 07:00 08:00 Temp 98.3 98.3 Pulse 76 69 Resp 14 B/P (MAP) 161/105 (123) 172/114 (133) Pulse Ox 95 95 91 95 O2 Delivery Room Air Room Air Room Air Room Air 07/04/18 07/04/18 07/04/18 07/04/18 08:05 08:07 09:01 10:07 Temp 98.3 98.3 98.3 98.3 Pulse 81 72 70 B/P (MAP) 158/102 (120) 157/107 (124) 156/104 (121) Pulse Ox 96 91 91 O2 Delivery Room Air Room Air Room Air Room Air Intake and Output 07/03/18 07/03/18 07/04/18 15:00 23:00 07:00 Intake Total 250 ml Output Total 0 ml Balance 250 ml ROSALEE DAVIES MD Jul 04, 2018 10:29
--- NOTE | 2018-07-04 10:36 | EKG ---
[facility] [address] [place] [id number] Test Date: 2018-07-03 Test Time: 16:11:04 Pat Name: FRANKIE GARCIA Department: Room: 104 1 Gender: M [employer]: : 1965 Requested By: STEVE SHAIKH Order Number: [id number] Reading MD: James Hurd MD Measurements Intervals [place] Rate: 87 P: 140 [place]: 118 QRS: 156 QRSD: 88 T: 93 QT: 402 QTc: 484 Interpretive Statements SINUS RHYTHM VENTRICULAR PREMATURE COMPLEX(ES) CONSIDER LIMB LEAD MISPLACEMENT NON-SPECIFIC ST/T CHANGES Electronically Signed On 07-04-2018 10:56:58 CDT by James Hurd MD
--- NOTE | 2018-07-04 10:42 | NUR ---
Routine consult called to Dr. Morin, spoke with Marguerite at [phone].
--- NOTE | 2018-07-04 10:44 | NUR ---
Routine consult called to Dr. Farfan, spoke with Ana María in the office at [phone].
[2018-07-04] MEDS: hydrALAZINE 20 MG/ML VIAL. IVP PRN ×2 (11:43→20:58)
--- NOTE | 2018-07-04 12:08 | PDOC2 ---
CONSULT Date of Consult Date of Consult DATE: 07/04/18 TIME: 11:59 Reason for Consult Reason for Consult: SOB AND ESRD Referring Physician Referring Physician: SAMSON Identification/Chief Complaint Chief Complaint ABD PAIN AND SOB Source Source: Chart review, Patient History of Present Illness Reason for Visit: THIS IS A 53 YR OLD WITH SOB AND ABD PAIN, HAS HAD SOME CONSTIPATION AND HX OF ASCITES AND PD CATHETER FOR DIALYSIS BUT ABD PAIN IS BETTER. ASCITES HAS BEEN WORKED UP AND NO ETIOLOGY HAS BEEN FOUND. CXRAY POS FOR SOME VASCULAR CONGESTION. CURRENTLY HAS A DX OF EXACERBATION OF COPD. LABS ARE C/W ESRD. BP HIS VERY HIGH AND HE HAS HAD SOME NON COMPLIANCE IN THE PAST Past Medical History Cardiovascular: HTN Pulmonary: Asthma CENTRAL NERVOUS SYSTEM: CVA, Periperal neuropathy GI: No pertinent hx Heme/Onc: Anemia NOS Hepatobiliary: No pertinent hx Psych: Anxiety Musculoskeletal: Osteoarthritis Rheumatologic: No pertinent hx Infectious disease: No pertinent hx Renal/: Chronic renal failure Endocrine: No pertinent hx Dermatology: No pertinent hx Past Surgical History Past Surgical History: Hernia Repair, Other Family History Family History: Heart Disease, Hypertension, Stroke Social History No ALCOHOL: none Drugs: None Lives: with Family Current Problem List Problem List Problems Medical Problems: (1) Pulmonary vascular congestion Status: Acute Current Medications Current Medications Current Medications Labetalol HCl (Normodyne Iv Push) 10 mg 1X ONCE IVP Last administered on at 18:03; Start 07/03/18 at 16:45; Stop 07/03/18 at 16:46; Status DC Ceftriaxone Sodium (Rocephin) 1 gm 1X ONCE IVP Last administered on 07/03/18at 18:40; Start 07/03/18 at 17:30; Stop 07/03/18 at 17:31; Status DC Ondansetron HCl (Zofran) 4 mg PRN Q8HRS PRN IV NAUSEA/VOMITING Last administered on 07/03/18at 18:40; Start 07/03/18 at 18:00; Stop 07/04/18 at 17:59 Morphine Sulfate (Morphine Sulfate) 2 mg PRN Q2HR PRN IV PAIN Last administered on 07/04/18at 00:22; Start 07/03/18 at 18:00; Stop 07/04/18 at 17:59 Amlodipine Besylate (Norvasc) 10 mg DAILY PO ; Start 07/04/18 at 09:00 Aspirin (Ecotrin) 325 mg DAILYWBKFT PO ; Start 07/04/18 at 08:00 Carvedilol (Coreg) 6.25 mg BIDWMEALS PO ; Start 07/04/18 at 08:00 Clonidine HCl (Catapres) 0.1 mg TID PO Last administered on 07/03/18at 21:48; Start 07/03/18 at 21:00 Hydralazine HCl (Apresoline) 50 mg TID PO Last administered on 07/03/18at 21:47 ; Start 07/03/18 at 21:00; Stop 07/04/18 at 11:18; Status DC Hydralazine HCl (Apresoline Inj) 20 mg PRN Q4HRS PRN IVP ELEVATED BP, SEE COMMENTS Last administered on 07/04/18at 11:43; Start 07/03/18 at 20:45 Alprazolam (Xanax) 0.25 mg PRN BID PRN PO ANXIETY / AGITATION; Start 07/03/18 at 22:45 Calcium/Vitamin D (Oscal D 500mg/ 200uts) 1 tab BIDWMEALS PO ; Start 07/04/18 at 08:00 Ferrous Sulfate (Feosol) 325 mg BIDWMEALS PO ; Start 07/04/18 at 08:00 Acetaminophen/ Hydrocodone Bitart (Lortab 5/325) 1 tab PRN Q6HRS PRN PO SEVERE PAIN; Start 07/03/18 at 22:45 Oxycodone/ Acetaminophen (Percocet 7.5/ 325) 1 tab PRN Q6HRS PRN PO PAIN Last administered on 07/04/18at 06:12; Start 07/03/18 at 22:45 Furosemide (Lasix) 40 mg 1X ONCE IVP Last administered on 07/04/18at 00:22; Start 07/03/18 at 23:00; Stop 07/03/18 at 23:01; Status DC Hydralazine HCl (Apresoline) 75 mg TID PO ; Start 07/04/18 at 14:00 Heparin Sodium (Porcine) (Heparin Sodium) 5,000 unit Q8HRS SQ ; Start 07/04/18 at 14:00 Active Scripts Active Percocet 7.5-325 Mg Tablet (Oxycodone/Acetaminophen) 1 Each Tablet 1 Tab PO PRN Q6HRS PRN 3 Days Carvedilol (Carvedilol) 6.25 Mg Tablet 6.25 Mg PO BIDWMEALS 30 Days Hydrocodone-Apap 5-325 (Hydrocodone Bit/Acetaminophen) 1 Each Tablet 1 Tab PO PRN Q6HRS PRN Furosemide 40 Mg Tablet 40 Mg PO BID92 30 Days Oyster Shell 500 Mg + Vit D Tb (Calcium Carbonate/Vitamin D3) 1 Each Tablet 1 Tab PO BIDWMEALS 30 Days Alprazolam 0.25 Mg Tablet 0.25 Mg PO PRN BID PRN 10 Days Feosol (Ferrous Sulfate) 325 Mg Tablet 325 Mg PO BIDWMEALS 30 Days Aspirin Ec (Aspirin) 325 Mg Tablet.dr 325 Mg PO DAILYWBKFT 30 Days Reported Amlodipine Besylate 10 Mg Tablet 10 Mg PO DAILY Hydralazine Hcl 50 Mg Tablet 1 Tab PO TID Clonidine Hcl 0.1 Mg Tablet 0.1 Mg PO TID Allergies Allergies: Coded Allergies: lisinopril (Verified Allergy, Severe, Swelling, 06/03/18) I S O L A T I O N *CONTACT* (Verified Allergy, Unknown, 06/03/18) +MRSA nares 01/15/18 codeine (Verified Adverse Reaction, Mild, itching, 06/03/18) ROS General: YES: Fatigue PSYCHOLOGICAL ROS: YES: Anxiety, Depression Eyes: Yes Decreased vision HEENT: YES: Fany ALLERGY AND IMMUNOLOGY: YES: Seasonal Allergies Respiratory: YES: Cough, Orthopnea, Shortness of breath Cardiovascular: yes Orthopnea, yes Lt Headedness Gastrointestinal: Yes Abdominal Pain, Yes Constipation, Yes Other (ASCITES) Musculoskeletal: Yes Muscular Weakness Neurological: Yes Weakness Skin: Yes Dry Skin Physical Exam General: Alert, Oriented X3, Cooperative, No acute distress HEENT: Atraumatic, PERRLA, EOMI Lungs: Clear to auscultation Heart: Regular rate, Normal S1, Normal S2 Abdomen: Normal bowel sounds, Soft, Other (POS ASCITES, PD SITE CLEAN) Skin: No breakdown Neuro: Normal speech, Cranial nerves 3-12 NL Psych/Mental Status: Mental status NL MUSCULOSKELETAL: No joint tenderness, No deformity, No swelling Vitals VITALS Vital Signs Date Time Temp Pulse Resp B/P (MAP) Pulse Ox O2 Delivery O2 Flow Rate FiO2 07/04/18 11:43 75 166/111 07/04/18 11:04 94 Room Air 07/04/18 09:01 98.3 98.3 07/04/18 06:00 14 07/03/18 20:52 2.0 Labs Labs Laboratory Tests Test 07/03/18 16:25 07/03/18 17:20 07/04/18 03:50 White Blood Count 5.3 x10^3/uL (4.0-11.0) 4.9 x10^3/uL (4.0-11.0) Red Blood Count 4.70 x10^6/uL (4.30-5.70) 4.32 x10^6/uL (4.30-5.70) Hemoglobin 12.4 g/dL (13.0-17.5) 11.4 g/dL (13.0-17.5) Hematocrit 38.8 % (39.0-53.0) 35.3 % (39.0-53.0) Mean Corpuscular Volume 83 fL (79-100) 82 fL (79-100) Mean Corpuscular Hemoglobin 26 pg (25-35) 26 pg (25-35) Mean Corpuscular Hemoglobin Concent 32 g/dL (31-37) 32 g/dL (31-37) Red Cell Distribution Width 18.3 % (11.5-14.5) 18.2 % (11.5-14.5) Platelet Count 244 x10^3/uL (140-400) 231 x10^3/uL (140-400) Neutrophils (%) (Auto) 70 % (31-73) 65 % (31-73) Lymphocytes (%) (Auto) 15 % (24-48) 16 % (24-48) Monocytes (%) (Auto) 11 % (0-9) 14 % (0-9) Eosinophils (%) (Auto) 3 % (0-3) 4 % (0-3) Basophils (%) (Auto) 2 % (0-3) 2 % (0-3) Neutrophils # (Auto) 3.7 x10^3uL (1.8-7.7) 3.2 x10^3uL (1.8-7.7) Lymphocytes # (Auto) 0.8 x10^3/uL (1.0-4.8) 0.8 x10^3/uL (1.0-4.8) Monocytes # (Auto) 0.6 x10^3/uL (0.0-1.1) 0.7 x10^3/uL (0.0-1.1) Eosinophils # (Auto) 0.1 x10^3/uL (0.0-0.7) 0.2 x10^3/uL (0.0-0.7) Basophils # (Auto) 0.1 x10^3/uL (0.0-0.2) 0.1 x10^3/uL (0.0-0.2) Sodium Level 136 mmol/L (136-145) 137 mmol/L (136-145) Potassium Level 4.0 mmol/L (3.5-5.1) 4.0 mmol/L (3.5-5.1) Chloride Level 101 mmol/L (98-107) 102 mmol/L (98-107) Carbon Dioxide Level 21 mmol/L (21-32) 21 mmol/L (21-32) Anion Gap 14 (6-14) 14 (6-14) Blood Urea Nitrogen 63 mg/dL (8-26) 64 mg/dL (8-26) Creatinine 7.4 mg/dL (0.7-1.3) 7.5 mg/dL (0.7-1.3) Estimated GFR (Cockcroft-Gault) 9.4 9.2 Glucose Level 138 mg/dL (70-99) 95 mg/dL (70-99) Calcium Level 7.6 mg/dL (8.5-10.1) 7.4 mg/dL (8.5-10.1) Total Bilirubin 0.6 mg/dL (0.2-1.0) Direct Bilirubin 0.3 mg/dL (0.0-0.2) Aspartate Amino Transf (AST/SGOT) 13 U/L (15-37) Alanine Aminotransferase (ALT/SGPT) 10 U/L (16-63) Alkaline Phosphatase 103 U/L (46-116) Troponin I Quantitative 0.092 ng/mL (0.000-0.055) 0.223 ng/mL (0.000-0.055) Total Protein 6.2 g/dL (6.4-8.2) Albumin 2.5 g/dL (3.4-5.0) Lipase 301 U/L (73-393) Triglycerides Level 68 mg/dL (0-150) Laboratory Tests Test 07/03/18 16:25 07/03/18 17:20 07/04/18 03:50 White Blood Count 5.3 x10^3/uL (4.0-11.0) 4.9 x10^3/uL (4.0-11.0) Red Blood Count 4.70 x10^6/uL (4.30-5.70) 4.32 x10^6/uL (4.30-5.70) Hemoglobin 12.4 g/dL (13.0-17.5) 11.4 g/dL (13.0-17.5) Hematocrit 38.8 % (39.0-53.0) 35.3 % (39.0-53.0) Mean Corpuscular Volume 83 fL (79-100) 82 fL (79-100) Mean Corpuscular Hemoglobin 26 pg (25-35) 26 pg (25-35) Mean Corpuscular Hemoglobin Concent 32 g/dL (31-37) 32 g/dL (31-37) Red Cell Distribution Width 18.3 % (11.5-14.5) 18.2 % (11.5-14.5) Platelet Count 244 x10^3/uL (140-400) 231 x10^3/uL (140-400) Neutrophils (%) (Auto) 70 % (31-73) 65 % (31-73) Lymphocytes (%) (Auto) 15 % (24-48) 16 % (24-48) Monocytes (%) (Auto) 11 % (0-9) 14 % (0-9) Eosinophils (%) (Auto) 3 % (0-3) 4 % (0-3) Basophils (%) (Auto) 2 % (0-3) 2 % (0-3) Neutrophils # (Auto) 3.7 x10^3uL (1.8-7.7) 3.2 x10^3uL (1.8-7.7) Lymphocytes # (Auto) 0.8 x10^3/uL (1.0-4.8) 0.8 x10^3/uL (1.0-4.8) Monocytes # (Auto) 0.6 x10^3/uL (0.0-1.1) 0.7 x10^3/uL (0.0-1.1) Eosinophils # (Auto) 0.1 x10^3/uL (0.0-0.7) 0.2 x10^3/uL (0.0-0.7) Basophils # (Auto) 0.1 x10^3/uL (0.0-0.2) 0.1 x10^3/uL (0.0-0.2) Sodium Level 136 mmol/L (136-145) 137 mmol/L (136-145) Potassium Level 4.0 mmol/L (3.5-5.1) 4.0 mmol/L (3.5-5.1) Chloride Level 101 mmol/L (98-107) 102 mmol/L (98-107) Carbon Dioxide Level 21 mmol/L (21-32) 21 mmol/L (21-32) Anion Gap 14 (6-14) 14 (6-14) Blood Urea Nitrogen 63 mg/dL (8-26) 64 mg/dL (8-26) Creatinine 7.4 mg/dL (0.7-1.3) 7.5 mg/dL (0.7-1.3) Estimated GFR (Cockcroft-Gault) 9.4 9.2 Glucose Level 138 mg/dL (70-99) 95 mg/dL (70-99) Calcium Level 7.6 mg/dL (8.5-10.1) 7.4 mg/dL (8.5-10.1) Total Bilirubin 0.6 mg/dL (0.2-1.0) Direct Bilirubin 0.3 mg/dL (0.0-0.2) Aspartate Amino Transf (AST/SGOT) 13 U/L (15-37) Alanine Aminotransferase (ALT/SGPT) 10 U/L (16-63) Alkaline Phosphatase 103 U/L (46-116) Troponin I Quantitative 0.092 ng/mL (0.000-0.055) 0.223 ng/mL (0.000-0.055) Total Protein 6.2 g/dL (6.4-8.2) Albumin 2.5 g/dL (3.4-5.0) Lipase 301 U/L (73-393) Triglycerides Level 68 mg/dL (0-150) Images Images Abdominal and Pelvis CT, Without Contrast: History: Abdominal pain. Comparison: None. Procedure: Axial images are obtained of the abdomen and pelvis, without IV or oral contrast. CT Abdomen without Contrast: Findings: Evaluation of solid organs is limited without contrast. Evaluation of stomach and bowel is limited without oral contrast. There is a tiny left pleural effusion. There is a moderate ascites. Liver: Normal. Spleen: Normal. Pancreas: Normal. Adrenal Glands: Normal. Kidneys: Small. There is no free air There is no lymphadenopathy. Impression: Please see CT Pelvis without Contrast. End Impression. CT Pelvis without Contrast: Findings: There is a peritoneal catheter seen. The urinary bladder appears normal. There is moderate free fluid. There is no lymphadenopathy. There is no pericolonic inflammation identified. Impression: Moderate ascites. End impression Assessment/Plan Assessment/Plan IMP MALIGNANT HTN EXACERBATION OF COPD ACUTE HYPOXIC RESP FAILURE NON COMPLIANCE ASCITES OF UNKNOWN ETIOLOGY MILD PULMONARY VASCULAR CONGESTION ABD PAIN-RESOLVED S/P RECENT UMBILICAL HERNIA REPAIR ELEVATED TROPONIN ESRD - RECENT CONVERSION FROM HD TO PD PLAN CARDIOLOGY EVALUATION DRAIN PD CATHETER TODAY TO REMOVE ASCITES HD TOMORROW VIA HIS AVF IF NEEDED RESUME HOME MEDS GI EVALUATION ENCOURAGE COMPLIANCE WILL FOLLOW D/W ATTENDING AND OSIRIS HERRERA MD Jul 04, 2018 12:08
[2018-07-04 12:11] LABS: PROTHROMBIN TIME PATIENT 15.1 SEC (11.7-14.0)
--- NOTE | 2018-07-04 12:13 | RAD ---
EXAM: Abdomen sonogram. HISTORY: Ascites. TECHNIQUE: Sonographic imaging of the abdomen was performed. COMPARISON: CT dated 07/03/2018. FINDINGS: There is moderate abdominal ascites. This is similar compared to the prior CT, allowing for differences in imaging modality. The abdominal visceral and vascular structures are not formally assessed. IMPRESSION: Moderate ascites. Electronically signed by: Anu Zuleta MD (07/04/2018 12:10 PM) [facility] [id number]
--- NOTE | 2018-07-04 12:26 | PDOC2 ---
ELKIN SMITH JUNIOR RECRUITER 07/04/18 1226: CARDIAC CONSULT DATE OF CONSULT Date of Consult DATE: 07/04/18 TIME: 12:10 REASON FOR CONSULT Reason for Consult: Elevated troponin REFERRING PHYSICIAN Referring Physician: Dr. Roberson SOURCE Source: Chart review, Patient HISTORY OF PRESENT ILLNESS HISTORY OF PRESENT ILLNESS This is a 53 yo male who presented secondary to abdominal pain. Patient was receiving his peritoneal dialysis when pain began Describes as sharp, stabbing in nature.. Troponin was checked and noted to by mildly elevated, which prompted this consult. Patient denies any chest pain, palpitations, dizziness, diaphoresis, or SOA. Has had some mild LE edema. PAST MEDICAL HISTORY Past Medical History Cardiovascular: HTN Pulmonary: Asthma CENTRAL NERVOUS SYSTEM: CVA, Periperal neuropathy GI: No pertinent hx Heme/Onc: Anemia NOS Hepatobiliary: No pertinent hx Psych: Anxiety Musculoskeletal: Osteoarthritis Rheumatologic: No pertinent hx Infectious disease: No pertinent hx ENT: No pertinent hx Renal/: Chronic renal failure (ESRD on HD) Endocrine: No pertinent hx Dermatology: No pertinent hx PAST SURGICAL HISTORY Past Surgical History Other (lumbar fusion, L dialysis fistula placement, corneal transplant) FAMILY HISTORY Family History Heart Disease, Hypertension, Stroke SOCIAL HISTORY Social History Smoke: No ALCOHOL: none Drugs: None Lives: with Family CURRENT MEDICATIONS CURRENT MEDICATIONS Current Medications Medications (Trade) Dose Ordered Sig/Sascha Route PRN Reason Start Time Stop Time Status Last Admin Dose Admin Labetalol HCl (Normodyne Iv Push) 10 mg 1X ONCE IVP 07/03/18 16:45 07/03/18 16:46 DC 07/03/18 18:03 Ceftriaxone Sodium (Rocephin) 1 gm 1X ONCE IVP 07/03/18 17:30 07/03/18 17:31 DC 07/03/18 18:40 Ondansetron HCl (Zofran) 4 mg PRN Q8HRS PRN IV NAUSEA/VOMITING 07/03/18 18:00 07/04/18 17:59 07/03/18 18:40 Morphine Sulfate (Morphine Sulfate) 2 mg PRN Q2HR PRN IV PAIN 07/03/18 18:00 07/04/18 17:59 07/04/18 00:22 Clonidine HCl (Catapres) 0.1 mg TID PO 07/03/18 21:00 07/03/18 21:48 Hydralazine HCl (Apresoline) 50 mg TID PO 07/03/18 21:00 07/04/18 11:18 DC 07/03/18 21:47 Hydralazine HCl (Apresoline Inj) 20 mg PRN Q4HRS PRN IVP ELEVATED BP, SEE COMMENTS 07/03/18 20:45 07/04/18 11:43 Oxycodone/ Acetaminophen (Percocet 7.5/ 325) 1 tab PRN Q6HRS PRN PO PAIN 07/03/18 22:45 07/04/18 06:12 Furosemide (Lasix) 40 mg 1X ONCE IVP 07/03/18 23:00 07/03/18 23:01 DC 07/04/18 00:22 ALLERGIES ALLERGIES: Coded Allergies: lisinopril (Verified Allergy, Severe, Swelling, 06/03/18) I S O L A T I O N *CONTACT* (Verified Allergy, Unknown, 06/03/18) +MRSA nares 01/15/18 codeine (Verified Adverse Reaction, Mild, itching, 06/03/18) ROS Review of System 14 point ROS conducted with pertinent positives noted above in HPI. PHYSICAL EXAM PHYSICAL EXAM General: Alert, Oriented X3, Cooperative, No acute distress HEENT: Atraumatic, Mucous membr. moist/pink Lungs: Clear to auscultation Heart: Regular rate (SR), Normal S1, Normal S2, Other (3/6 systolic murmur to LLS border) Abdomen: ascites Extremities: No cyanosis, No edema Skin: No breakdown, No significant lesion Neuro: Normal speech, Sensation intact Psych/Mental Status: Mental status NL, Mood NL MUSCULOSKELETAL: Osteoarthritic changes both hands VITALS VITALS Vital Signs Date Time Temp Pulse Resp B/P (MAP) Pulse Ox O2 Delivery O2 Flow Rate FiO2 07/04/18 11:43 75 166/111 07/04/18 11:04 94 Room Air 07/04/18 09:01 98.3 98.3 07/04/18 06:00 14 07/03/18 20:52 2.0 LABS Lab: Laboratory Tests Test 07/03/18 16:25 07/03/18 17:20 07/04/18 03:50 White Blood Count 5.3 x10^3/uL (4.0-11.0) 4.9 x10^3/uL (4.0-11.0) Red Blood Count 4.70 x10^6/uL (4.30-5.70) 4.32 x10^6/uL (4.30-5.70) Hemoglobin 12.4 g/dL (13.0-17.5) 11.4 g/dL (13.0-17.5) Hematocrit 38.8 % (39.0-53.0) 35.3 % (39.0-53.0) Mean Corpuscular Volume 83 fL (79-100) 82 fL (79-100) Mean Corpuscular Hemoglobin 26 pg (25-35) 26 pg (25-35) Mean Corpuscular Hemoglobin Concent 32 g/dL (31-37) 32 g/dL (31-37) Red Cell Distribution Width 18.3 % (11.5-14.5) 18.2 % (11.5-14.5) Platelet Count 244 x10^3/uL (140-400) 231 x10^3/uL (140-400) Neutrophils (%) (Auto) 70 % (31-73) 65 % (31-73) Lymphocytes (%) (Auto) 15 % (24-48) 16 % (24-48) Monocytes (%) (Auto) 11 % (0-9) 14 % (0-9) Eosinophils (%) (Auto) 3 % (0-3) 4 % (0-3) Basophils (%) (Auto) 2 % (0-3) 2 % (0-3) Neutrophils # (Auto) 3.7 x10^3uL (1.8-7.7) 3.2 x10^3uL (1.8-7.7) Lymphocytes # (Auto) 0.8 x10^3/uL (1.0-4.8) 0.8 x10^3/uL (1.0-4.8) Monocytes # (Auto) 0.6 x10^3/uL (0.0-1.1) 0.7 x10^3/uL (0.0-1.1) Eosinophils # (Auto) 0.1 x10^3/uL (0.0-0.7) 0.2 x10^3/uL (0.0-0.7) Basophils # (Auto) 0.1 x10^3/uL (0.0-0.2) 0.1 x10^3/uL (0.0-0.2) Sodium Level 136 mmol/L (136-145) 137 mmol/L (136-145) Potassium Level 4.0 mmol/L (3.5-5.1) 4.0 mmol/L (3.5-5.1) Chloride Level 101 mmol/L (98-107) 102 mmol/L (98-107) Carbon Dioxide Level 21 mmol/L (21-32) 21 mmol/L (21-32) Anion Gap 14 (6-14) 14 (6-14) Blood Urea Nitrogen 63 mg/dL (8-26) 64 mg/dL (8-26) Creatinine 7.4 mg/dL (0.7-1.3) 7.5 mg/dL (0.7-1.3) Estimated GFR (Cockcroft-Gault) 9.4 9.2 Glucose Level 138 mg/dL (70-99) 95 mg/dL (70-99) Calcium Level 7.6 mg/dL (8.5-10.1) 7.4 mg/dL (8.5-10.1) Total Bilirubin 0.6 mg/dL (0.2-1.0) Direct Bilirubin 0.3 mg/dL (0.0-0.2) Aspartate Amino Transf (AST/SGOT) 13 U/L (15-37) Alanine Aminotransferase (ALT/SGPT) 10 U/L (16-63) Alkaline Phosphatase 103 U/L (46-116) Troponin I Quantitative 0.092 ng/mL (0.000-0.055) 0.223 ng/mL (0.000-0.055) Total Protein 6.2 g/dL (6.4-8.2) Albumin 2.5 g/dL (3.4-5.0) Lipase 301 U/L (73-393) Triglycerides Level 68 mg/dL (0-150) ECHOCARDIOGRAM ECHOCARDIOGRAM <Conclusion> The left ventricular systolic function is normal. The Ejection Fraction is 50-55%. There is normal LV segmental wall motion. There is severe concentric left ventricular hypertrophy. Transmitral Doppler flow pattern is Grade II-pseudonormal filling dynamics. Mild aortic regurgitation. Trace mitral regurgitation. Trace to mild tricuspid regurgitation. There is a small pericardial effusion. DATE: 05/26/18 1653 STRESS TEST STRESS TEST Conclusion 1. No evidence of EKG changes with stress testing. 2. Normal perfusion at stress/rest. 3. Low risk study. 4. EF > 60%. DATE: 04/29/17 1352 HEART CATH HEART CATH CORONARY ANGIOGRAPHY: LM is a large caliber vessel with normal angiographic appearance. LAD is a large caliber vessel with normal angiographic appearance. Ramus is a moderate caliber vessel with normal angiographic appearance. LCx is a moderate caliber non-dominant vessel with normal angiographic appearance. OM1 is a moderate caliber vessel with normal angiographic appearance. RCA is a large caliber dominant vessel with normal angiographic appearance. RPDA is a moderate caliber vessels with normal angiographic appearance. Conclusion 1. No significant obstructive coronary artery disease. 2. Elevated left sided filling pressures. Recommendations Aggressive Medical Therapy DATE: 05/10/17 1447 ASSESSMENT/PLAN ASSESSMENT/PLAN 1. Malignant HTN; remains mild elevated 2. Mild troponin elevation; highest 0.223. Most probably type II, demand ischemia in the setting of uncontrolled hypertension and renal failure. Cath without significant obstructive disease as noted above. Echo revealed preserved LV systolic function with an EF of 55-60% along with moderate LVH. RV with mild-moderated hypertrophy. Consider outpatient referral for an MRI for further evaluation. 3. Acute on chronic diastolic HF; induced by uncontrolled hypertension 3. ESRD; recently transitioned to PD due to pain in the fistula during hemodialysis 4. Hx of CVA 5. Valvular disease 6. Ascites; s/p previous paracentesis, per GI Recommendations ASA Continue with home antiHTN therapy including Coreg, Norvasc, hydralazine. and clonidine. Allergy to ACEi. Monitor to assess need for therapy titration Fluid off loading per HD PRN Supportive care ANJUM MCCORD MD 07/04/182: CARDIAC CONSULT ASSESSMENT/PLAN ASSESSMENT/PLAN Pt. seen and examined. Agree with above Shoe Salesman note. Plans as above. ELKIN SMITH APRN Jul 04, 2018 12:26 ANJUM MCCORD MD Jul 04, 2018 21:12
--- NOTE | 2018-07-04 13:11 | CARD ---
MR#: [id number] Date of Study: 07/04/2018 Ordering Physician: ROSALEE DAVIES, Referring Physician: ROSALEE DAVIES, Tech: Alejandra Jo FCO APPROVED REPORT EXAM: LIMITED Two-dimensional and M-mode echocardiogram with Doppler and color Doppler. Other Information Quality : GoodHR: 70bpm Rhythm : NSR INDICATION New murmur 2D DIMENSIONS RVDd3.4 (2.9-3.5cm)Left Atrium(2D)3.9 (1.6-4.0cm) IVSd1.8 (0.7-1.1cm)Aortic Root(2D)3.4 (2.0-3.7cm) LVDd4.0 (3.9-5.9cm)LVOT Diameter2.0 (1.8-2.4cm) PWd1.5 (0.7-1.1cm)LVDs2.4 (2.5-4.0cm) FS (%) 40.1 %SV49.9 ml LVEF(%)69.0 (>50%) Aortic Valve AoV Peak Alvaro.164.0cm/sAoV VTI25.4cm AO Peak GR.10.8mmHgLVOT VTI 21.17cm AO Mean GR.6mmHgAVA (VTI)2.50cm2 AI P 1/2 [id number] Mitral Valve MV E Peak Gr.3mmHgMV E Mean Gr.1mmHg Tricuspid Valve TR P. [id number] TR Peak Gr.[id number] LEFT VENTRICLE The left ventricle is normal size. There is moderate concentric left ventricular hypertrophy. The lef t ventricular systolic function is normal and the ejection fraction is within normal range. The Eject ion Fraction is 55-60%. There is normal LV segmental wall motion. RIGHT VENTRICLE The right ventricle is normal size. The right ventricle is mildly to moderately hypertrophied. The ri ght ventricular systolic function is normal. ATRIA The left atrium is mildly dilated. The right atrium is mildly dilated. AORTIC VALVE The aortic valve is thickened but opens well. The aortic valve is trileaflet. Doppler and Color Flow revealed trace to mild aortic regurgitation. There is no significant aortic valvular stenosis. MITRAL VALVE The mitral valve is thickened but opens well. There is no evidence of mitral valve prolapse. There is no mitral valve stenosis. Doppler and Color-flow revealed trace mitral regurgitation. TRICUSPID VALVE The tricuspid valve is normal in structure and function. Doppler and Color Flow revealed trace tricus pid regurgitation. There is mild pulmonary hypertension. The PA pressure was estimated at 39 mmHg. Th ere is no tricuspid valve prolapse or vegetation. There is no tricuspid valve stenosis. PULMONIC VALVE Doppler and Color Flow revealed trace to mild pulmonic valvular regurgitation. There is no pulmonic v alvular stenosis. GREAT VESSELS The aortic root is normal in size. The IVC is dilated and collapses <50% with inspiration. PERICARDIAL EFFUSION Pleural effusion noted. There is a trace pericardial effusion. Critical Notification Critical Value: No <Conclusion> There is moderate concentric left ventricular hypertrophy. The left ventricular systolic function is normal and the ejection fraction is within normal range. Th e Ejection Fraction is 55-60%. There is normal LV segmental wall motion. The right ventricle is mildly to moderately hypertrophied. Doppler and Color Flow revealed trace to mild aortic regurgitation. Signed by : James Hurd, Electronically Approved : 07/04/2018 13:10:45
--- NOTE | 2018-07-04 13:36 | PDOC2 ---
GI CONSULT Reason For Consult: Ascites HPI: HPI: 53 y/o male who we saw last month. Diffuse abd pain began during PD on Wednesday, has persisted w/ abd distention. Significant HTN in ER. No n/v, diarrhea, constipation, or bleeding. Is hungry. H/o ascites w/ past paracentesis - thought nephrogenic, portal hypertension not suspected. Cytology on initial paracentesis (05/19/18) was negative. SERGIO, AMA, ASMA, ceruloplasmin, and viral Hep panel were negative/normal. Abd doppler was unrevealing. Possible EGD and colonoscopy years ago. Past imaging noted possible GB adenomyomatosis. Denies liver or pancreas history. Chronic pain on oxycodone. Chronic anemia iron 42 w/ sat 14 in 05/2018. PMH: PMH: HTN, asthma, CVA, valvular disease, peripheral neuropathy, anemia, anxiety, OA, ESRD on HD neck surgery, dialysis fistula, bilateral corneal transplants, lumbar fusions, cardiac cath, PD cath placement, umbilical hernia repair FH: Family History: No pertinent hx (denies GI cancers and liver disease) Social History: Smoke: No ALCOHOL: other (drank some in the past - never heavily, none now) Drugs: None ROS: GEN: Denies fevers, chills, sweats HEENT: Denies blurred vision, sore throat CV: Denies chest pain RESP: Denies shortness of air, cough GI: Per HPI : Denies hematuria, dysuria ENDO: Denies weight changes NEURO: Denies confusion, dizziness MSK: Denies weakness, joint pain/swelling SKIN: Denies jaundice, pruritus Vitals: Vitals: Vital Signs Date Time Temp Pulse Resp B/P (MAP) Pulse Ox O2 Delivery O2 Flow Rate FiO2 07/04/18 13:19 Room Air 07/04/18 12:36 75 166/111 07/04/18 11:04 94 07/04/18 09:01 98.3 98.3 07/04/18 06:00 14 07/03/18 20:52 2.0 Labs: Labs: Laboratory Tests Test 07/03/18 16:25 07/03/18 17:20 07/04/18 03:50 07/04/18 11:40 White Blood Count 5.3 x10^3/uL (4.0-11.0) 4.9 x10^3/uL (4.0-11.0) Red Blood Count 4.70 x10^6/uL (4.30-5.70) 4.32 x10^6/uL (4.30-5.70) Hemoglobin 12.4 g/dL (13.0-17.5) 11.4 g/dL (13.0-17.5) Hematocrit 38.8 % (39.0-53.0) 35.3 % (39.0-53.0) Mean Corpuscular Volume 83 fL (79-100) 82 fL (79-100) Mean Corpuscular Hemoglobin 26 pg (25-35) 26 pg (25-35) Mean Corpuscular Hemoglobin Concent 32 g/dL (31-37) 32 g/dL (31-37) Red Cell Distribution Width 18.3 % (11.5-14.5) 18.2 % (11.5-14.5) Platelet Count 244 x10^3/uL (140-400) 231 x10^3/uL (140-400) Neutrophils (%) (Auto) 70 % (31-73) 65 % (31-73) Lymphocytes (%) (Auto) 15 % (24-48) 16 % (24-48) Monocytes (%) (Auto) 11 % (0-9) 14 % (0-9) Eosinophils (%) (Auto) 3 % (0-3) 4 % (0-3) Basophils (%) (Auto) 2 % (0-3) 2 % (0-3) Neutrophils # (Auto) 3.7 x10^3uL (1.8-7.7) 3.2 x10^3uL (1.8-7.7) Lymphocytes # (Auto) 0.8 x10^3/uL (1.0-4.8) 0.8 x10^3/uL (1.0-4.8) Monocytes # (Auto) 0.6 x10^3/uL (0.0-1.1) 0.7 x10^3/uL (0.0-1.1) Eosinophils # (Auto) 0.1 x10^3/uL (0.0-0.7) 0.2 x10^3/uL (0.0-0.7) Basophils # (Auto) 0.1 x10^3/uL (0.0-0.2) 0.1 x10^3/uL (0.0-0.2) Sodium Level 136 mmol/L (136-145) 137 mmol/L (136-145) Potassium Level 4.0 mmol/L (3.5-5.1) 4.0 mmol/L (3.5-5.1) Chloride Level 101 mmol/L (98-107) 102 mmol/L (98-107) Carbon Dioxide Level 21 mmol/L (21-32) 21 mmol/L (21-32) Anion Gap 14 (6-14) 14 (6-14) Blood Urea Nitrogen 63 mg/dL (8-26) 64 mg/dL (8-26) Creatinine 7.4 mg/dL (0.7-1.3) 7.5 mg/dL (0.7-1.3) Estimated GFR (Cockcroft-Gault) 9.4 9.2 Glucose Level 138 mg/dL (70-99) 95 mg/dL (70-99) Calcium Level 7.6 mg/dL (8.5-10.1) 7.4 mg/dL (8.5-10.1) Total Bilirubin 0.6 mg/dL (0.2-1.0) Direct Bilirubin 0.3 mg/dL (0.0-0.2) Aspartate Amino Transf (AST/SGOT) 13 U/L (15-37) Alanine Aminotransferase (ALT/SGPT) 10 U/L (16-63) Alkaline Phosphatase 103 U/L (46-116) Troponin I Quantitative 0.092 ng/mL (0.000-0.055) 0.223 ng/mL (0.000-0.055) Total Protein 6.2 g/dL (6.4-8.2) Albumin 2.5 g/dL (3.4-5.0) Lipase 301 U/L (73-393) Triglycerides Level 68 mg/dL (0-150) Prothrombin Time 15.1 SEC (11.7-14.0) Prothromb Time International Ratio 1.2 (0.8-1.1) Allergies: Coded Allergies: lisinopril (Verified Allergy, Severe, Swelling, 06/03/18) I S O L A T I O N *CONTACT* (Verified Allergy, Unknown, 06/03/18) +MRSA nares 01/15/18 codeine (Verified Adverse Reaction, Mild, itching, 06/03/18) Medications: Current Medications Medications (Trade) Dose Ordered Sig/Sascha Route PRN Reason Start Time Stop Time Status Last Admin Dose Admin Labetalol HCl (Normodyne Iv Push) 10 mg 1X ONCE IVP 07/03/18 16:45 07/03/18 16:46 DC 07/03/18 18:03 Ceftriaxone Sodium (Rocephin) 1 gm 1X ONCE IVP 07/03/18 17:30 07/03/18 17:31 DC 07/03/18 18:40 Ondansetron HCl (Zofran) 4 mg PRN Q8HRS PRN IV NAUSEA/VOMITING 07/03/18 18:00 07/04/18 17:59 07/03/18 18:40 Morphine Sulfate (Morphine Sulfate) 2 mg PRN Q2HR PRN IV PAIN 07/03/18 18:00 07/04/18 17:59 07/04/18 00:22 Amlodipine Besylate (Norvasc) 10 mg DAILY PO 07/04/18 09:00 07/04/18 12:35 Carvedilol (Coreg) 6.25 mg BIDWMEALS PO 07/04/18 08:00 07/04/18 12:36 Clonidine HCl (Catapres) 0.1 mg TID PO 07/03/18 21:00 07/03/18 21:48 Hydralazine HCl (Apresoline) 50 mg TID PO 07/03/18 21:00 07/04/18 11:18 DC 07/03/18 21:47 Hydralazine HCl (Apresoline Inj) 20 mg PRN Q4HRS PRN IVP ELEVATED BP, SEE COMMENTS 07/03/18 20:45 07/04/18 11:43 Oxycodone/ Acetaminophen (Percocet 7.5/ 325) 1 tab PRN Q6HRS PRN PO PAIN 07/03/18 22:45 07/04/18 13:19 Furosemide (Lasix) 40 mg 1X ONCE IVP 07/03/18 23:00 07/03/18 23:01 DC 07/04/18 00:22 Imaging: Imaging: CXR IMPRESSION: Congestive heart failure suspected. Consider follow-up two-view chest x-ray exam. CT A/P Impression: Moderate ascites. Abd US IMPRESSION: Moderate ascites. PE: GEN: NAD HEENT: Atraumatic, PERRL LUNGS: clear anteriorly HEART: RRR ABD: distended but soft, mild tenderness diffusely, PD cath left midabdomen w/ gauze SKIN: No rashes, no jaundice NEURO/PSYCH: A & O 3 A/P: A/P: Abd pain HTN, elevated troponin, CHF, ESRD (previously on HD, transitioned to PD) Chronic anemia Ascites - workup as above, portal hypertension not suspected CRC screen - unclear -- Primary has ordered paracentesis. Other per Dr. Thurman. NEGAR CLEMONS Jul 04, 2018 13:36
[2018-07-04] MEDS: HEPARIN for SUB-Q USE 5,000 UNIT/ML VIAL. SQ SCH ×2 (14:00→22:00)
[2018-07-04] MEDS: hydrALAZINE 25 MG TABLET PO SCH ×2 (14:00→21:02)
--- NOTE | 2018-07-04 15:07 | NUR ---
SS following for discharge planning. SS reviewed pt chart. Pt is from home and is currently on room air. Pt has dialysis chair time at [facility] Wednesday, , and Wednesday in the community. No discharge needs noted at this time. SS will continue to follow for pending discharge needs.
[2018-07-05] VITALS: BP 148/100
[2018-07-05 04:00] VITALS: BP 179/113
[2018-07-05] MEDS: hydrALAZINE 20 MG/ML VIAL. IVP PRN (04:34)
[2018-07-05 05:38] LABS: BASO # 0.1 x10^3/uL (0.0-0.2); BASO % 2 % (0-3); EOS # 0.3 x10^3/uL (0.0-0.7); EOS % 7 % (0-3); HEMATOCRIT 39.9 % (39.0-53.0); HEMOGLOBIN 13.2 g/dL (13.0-17.5); LYMPH # 0.9 x10^3/uL (1.0-4.8); LYMPH % 21 % (24-48); MEAN CORPUSCULAR HEMOGLOBIN 27 pg (25-35); MEAN CORPUSCULAR HGB CONC 33 g/dL (31-37); MEAN CORPUSCULAR VOLUME 82 fL (79-100); MONO # 0.5 x10^3/uL (0.0-1.1); MONO % 11 % (0-9); NEUT # 2.5 x10^3uL (1.8-7.7); NEUT % 58 % (31-73); PLATELET COUNT 255 x10^3/uL (140-400); RED BLOOD COUNT 4.88 x10^6/uL (4.30-5.70); RED CELL DISTRIBUTION WIDTH 18.5 % (11.5-14.5); WHITE BLOOD COUNT 4.3 x10^3/uL (4.0-11.0)
[2018-07-05 05:56] LABS: ALBUMIN 2.3 g/dL (3.4-5.0); CALCIUM 7.6 mg/dL (8.5-10.1); CREATININE 7.7 mg/dL (0.7-1.3); GFR 8.9; POTASSIUM 4.1 mmol/L (3.5-5.1)
[2018-07-05] MEDS ORDERED: LABETALOL 20 MG/4 ML DISP.SYRIN. IVP PRN (06:00)
[2018-07-05] MEDS: HEPARIN for SUB-Q USE 5,000 UNIT/ML VIAL. SQ SCH ×2 (06:00→14:00)
[2018-07-05 08:00] VITALS: BP 148/98
[2018-07-05] MEDS: CALCIUM CARB/VIT D3 500/200 TABLET. PO SCH (08:33)
[2018-07-05] MEDS: ASPIRIN ENTERIC COATED 325 MG TABLET.DR. PO SCH (08:34)
[2018-07-05] MEDS: CARVEDILOL 6.25 MG TABLET. PO SCH (08:34)
[2018-07-05] MEDS: cloNIDine HCL 0.1 MG TABLET PO SCH ×2 (08:34→14:00)
[2018-07-05] MEDS: FERROUS SULFATE 325 MG TABLET. PO SCH (08:34)
[2018-07-05] MEDS: hydrALAZINE 25 MG TABLET PO SCH ×2 (08:35→14:00)
[2018-07-05] MEDS: oxyCODONE/APAP 7.5/325 1 TAB TABLET PO PRN (08:38)
[2018-07-05] MEDS: amLODIPine BESYLATE 10 MG TABLET PO SCH (08:38)
--- NOTE | 2018-07-05 09:06 | PDOC ---
MARYLOU PETERSON POLISHER NUMERAL 07/05/18 0906: CARDIO Progress Notes Date and Time Date of Service 07/05/2018 Time of Evaluation 0900 Subjective Subjective: No Chest Pain, No shortness of breath, No Palpitations Vitals Vitals Vital Signs Date Time Temp Pulse Resp B/P (MAP) Pulse Ox O2 Delivery O2 Flow Rate FiO2 07/05/18 08:38 18 96 Room Air 07/05/18 08:38 62 148/98 07/05/18 08:00 97.7 97.7 Weight Weight [ ] Input and Output Intake and Output Intake and Output 07/05/18 06:59 Intake Total 0 ml Balance 0 ml Intake Oral 0 ml # Voids 1 Laboratory Labs Laboratory Tests Test 07/04/18 11:40 07/05/18 05:20 Prothrombin Time 15.1 SEC (11.7-14.0) Prothromb Time International Ratio 1.2 (0.8-1.1) White Blood Count 4.3 x10^3/uL (4.0-11.0) Red Blood Count 4.88 x10^6/uL (4.30-5.70) Hemoglobin 13.2 g/dL (13.0-17.5) Hematocrit 39.9 % (39.0-53.0) Mean Corpuscular Volume 82 fL (79-100) Mean Corpuscular Hemoglobin 27 pg (25-35) Mean Corpuscular Hemoglobin Concent 33 g/dL (31-37) Red Cell Distribution Width 18.5 % (11.5-14.5) Platelet Count 255 x10^3/uL (140-400) Neutrophils (%) (Auto) 58 % (31-73) Lymphocytes (%) (Auto) 21 % (24-48) Monocytes (%) (Auto) 11 % (0-9) Eosinophils (%) (Auto) 7 % (0-3) Basophils (%) (Auto) 2 % (0-3) Neutrophils # (Auto) 2.5 x10^3uL (1.8-7.7) Lymphocytes # (Auto) 0.9 x10^3/uL (1.0-4.8) Monocytes # (Auto) 0.5 x10^3/uL (0.0-1.1) Eosinophils # (Auto) 0.3 x10^3/uL (0.0-0.7) Basophils # (Auto) 0.1 x10^3/uL (0.0-0.2) Sodium Level 136 mmol/L (136-145) Potassium Level 4.1 mmol/L (3.5-5.1) Chloride Level 100 mmol/L (98-107) Carbon Dioxide Level 21 mmol/L (21-32) Anion Gap 15 (6-14) Blood Urea Nitrogen 66 mg/dL (8-26) Creatinine 7.7 mg/dL (0.7-1.3) Estimated GFR (Cockcroft-Gault) 8.9 Glucose Level 90 mg/dL (70-99) Calcium Level 7.6 mg/dL (8.5-10.1) Phosphorus Level 7.0 mg/dL (2.6-4.7) Albumin 2.3 g/dL (3.4-5.0) Physical Exam HEENT: Neck Supple W Full Motion Chest: Symmetric LUNGS: Clear to Auscultation Heart: S1S2, RRR (SR) Abdomen: Soft N/T Extremities: No Calf Tenderness Neurology: alert, oriented, follow commands Assessment Assessment 1. Malignant HTN; improved 2. Mild troponin elevation; highest 0.223. Most probably type II, demand ischemia in the setting of uncontrolled hypertension and renal failure. Cath without significant obstructive disease as noted above. Echo revealed preserved LV systolic function with an EF of 55-60% along with moderate LVH. RV with mild-moderated hypertrophy. 3. Acute on chronic diastolic CHF; compensated 3. ESRD; pt to continue with PD per nephrology 4. Hx of CVA 5. Valvular disease 6. Ascites; s/p previous paracentesis, per GI Recommendations Continue ASA, statin per lipids. Continue with home antiHTN therapy including Coreg, Norvasc, hydralazine. and clonidine. Allergy to ACEi. Titrate per level, encouraged HBPM Fluid off loading per PD Ok to DC to home per cardiac standpoint. May need cardiac MRI Follow up in office in 4 weeks and will consider for outpt stress test. ANJUM MCCORD MD 07/06/18 0646: CARDIO Progress Notes Plan Plan Pt. seen and examined. 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 Late entry for 07/05/2018 MARYLOU PETERSON POLISHER NUMERAL Jul 05, 2018 09:06 ANJUM MCCORD MD Jul 06, 2018 06:46
--- NOTE | 2018-07-05 10:41 | PDOC ---
PROGRESS NOTES Chief Complaint Chief Complaint Chief Complaint SEEN IN ER 53-year-old gentleman with past apical history of end-stage renal disease on peritoneal who has been admitted several times over the last month The patient comes in complaining with abdominal pain he was dismissed from this institution RECENTLY NOW presents with acute pulmonary edema he has been evaluated by GI and hepatic workup has been so far negative notes abdominal pain for the past 2-3 days. He used to use hemodialysis however over the past 2 weeks is been switched over to peritoneal dialysis because of pain in the fistula during hemodialysis. sharp shooting nonradiating pain.// is moderate History of Present Illness History of Present Illness Assessment/Plan Assessment/Plan IMPRESSION: malignant htn, severe, remains poor control Congestive heart failure acute. VOLUME overload likely , flash pulm edema pulmonary vasculature congestion noted.CXR severe concentric left ventricular hypertrophy. on recent ECHO 05/31 acute hypoxic resp failure Moderate ascites. etiology most likely related to hypoalbuminemia. Liver disease work up so far negative. No further work up deemed necessary from the GI stand point of view Status post umbilical hernia repair and with peritoneal dialysis catheter placement. End-stage renal disease recent transition to PD Abdominal pain secondary to the ascites, very low suspicion for SBP narcotic induced constipation most likely encouraged to take Miralax and docusate on a daily basis when taking narcotic medications Essential hypertension , uncontrolled History of GERD MILD TROPONIN I ELEVATION, LEAK// CKD plan admit GI consult NO PARACENTESIS nephrology consult inc hydralazine to 75 mg po tid NO paracentesis iv lasix 40 mg x 1 07/03 o2 support iv hydralazine 10 mg q 4 hrs prn bp support HOME MEDS ICU BED 36 min cc time Vitals Vitals Vital Signs Date Time Temp Pulse Resp B/P (MAP) Pulse Ox O2 Delivery O2 Flow Rate FiO2 07/05/18 08:38 18 96 Room Air 07/05/18 08:38 62 148/98 07/05/18 08:00 97.7 97.7 Physical Exam General: Alert, Oriented X3, Cooperative, No acute distress Heart: Regular rate, Normal S1, Normal S2 Lungs: Clear, Crackles, Other (less distress) Abdomen: Normal bowel sounds, Soft, Other (POS ASCITES, PD SITE CLEAN) Extremities: No clubbing, No cyanosis Skin: No breakdown Labs LABS Laboratory Tests Test 07/04/18 11:40 07/05/18 05:20 Prothrombin Time 15.1 SEC (11.7-14.0) Prothromb Time International Ratio 1.2 (0.8-1.1) White Blood Count 4.3 x10^3/uL (4.0-11.0) Red Blood Count 4.88 x10^6/uL (4.30-5.70) Hemoglobin 13.2 g/dL (13.0-17.5) Hematocrit 39.9 % (39.0-53.0) Mean Corpuscular Volume 82 fL (79-100) Mean Corpuscular Hemoglobin 27 pg (25-35) Mean Corpuscular Hemoglobin Concent 33 g/dL (31-37) Red Cell Distribution Width 18.5 % (11.5-14.5) Platelet Count 255 x10^3/uL (140-400) Neutrophils (%) (Auto) 58 % (31-73) Lymphocytes (%) (Auto) 21 % (24-48) Monocytes (%) (Auto) 11 % (0-9) Eosinophils (%) (Auto) 7 % (0-3) Basophils (%) (Auto) 2 % (0-3) Neutrophils # (Auto) 2.5 x10^3uL (1.8-7.7) Lymphocytes # (Auto) 0.9 x10^3/uL (1.0-4.8) Monocytes # (Auto) 0.5 x10^3/uL (0.0-1.1) Eosinophils # (Auto) 0.3 x10^3/uL (0.0-0.7) Basophils # (Auto) 0.1 x10^3/uL (0.0-0.2) Sodium Level 136 mmol/L (136-145) Potassium Level 4.1 mmol/L (3.5-5.1) Chloride Level 100 mmol/L (98-107) Carbon Dioxide Level 21 mmol/L (21-32) Anion Gap 15 (6-14) Blood Urea Nitrogen 66 mg/dL (8-26) Creatinine 7.7 mg/dL (0.7-1.3) Estimated GFR (Cockcroft-Gault) 8.9 Glucose Level 90 mg/dL (70-99) Calcium Level 7.6 mg/dL (8.5-10.1) Phosphorus Level 7.0 mg/dL (2.6-4.7) Albumin 2.3 g/dL (3.4-5.0) Assessment and Plan Assessmemt and Plan Problems Medical Problems: (1) Pulmonary vascular congestion Status: Acute Comment Review of Relevant I have reviewed the following items benjamin (where applicable) has been applied. Labs Laboratory Tests Test 07/03/18 16:25 07/03/18 17:20 07/03/18 23:40 07/04/18 03:50 White Blood Count 5.3 x10^3/uL (4.0-11.0) 4.9 x10^3/uL (4.0-11.0) Red Blood Count 4.70 x10^6/uL (4.30-5.70) 4.32 x10^6/uL (4.30-5.70) Hemoglobin 12.4 g/dL (13.0-17.5) 11.4 g/dL (13.0-17.5) Hematocrit 38.8 % (39.0-53.0) 35.3 % (39.0-53.0) Mean Corpuscular Volume 83 fL (79-100) 82 fL (79-100) Mean Corpuscular Hemoglobin 26 pg (25-35) 26 pg (25-35) Mean Corpuscular Hemoglobin Concent 32 g/dL (31-37) 32 g/dL (31-37) Red Cell Distribution Width 18.3 % (11.5-14.5) 18.2 % (11.5-14.5) Platelet Count 244 x10^3/uL (140-400) 231 x10^3/uL (140-400) Neutrophils (%) (Auto) 70 % (31-73) 65 % (31-73) Lymphocytes (%) (Auto) 15 % (24-48) 16 % (24-48) Monocytes (%) (Auto) 11 % (0-9) 14 % (0-9) Eosinophils (%) (Auto) 3 % (0-3) 4 % (0-3) Basophils (%) (Auto) 2 % (0-3) 2 % (0-3) Neutrophils # (Auto) 3.7 x10^3uL (1.8-7.7) 3.2 x10^3uL (1.8-7.7) Lymphocytes # (Auto) 0.8 x10^3/uL (1.0-4.8) 0.8 x10^3/uL (1.0-4.8) Monocytes # (Auto) 0.6 x10^3/uL (0.0-1.1) 0.7 x10^3/uL (0.0-1.1) Eosinophils # (Auto) 0.1 x10^3/uL (0.0-0.7) 0.2 x10^3/uL (0.0-0.7) Basophils # (Auto) 0.1 x10^3/uL (0.0-0.2) 0.1 x10^3/uL (0.0-0.2) Sodium Level 136 mmol/L (136-145) 137 mmol/L (136-145) Potassium Level 4.0 mmol/L (3.5-5.1) 4.0 mmol/L (3.5-5.1) Chloride Level 101 mmol/L (98-107) 102 mmol/L (98-107) Carbon Dioxide Level 21 mmol/L (21-32) 21 mmol/L (21-32) Anion Gap 14 (6-14) 14 (6-14) Blood Urea Nitrogen 63 mg/dL (8-26) 64 mg/dL (8-26) Creatinine 7.4 mg/dL (0.7-1.3) 7.5 mg/dL (0.7-1.3) Estimated GFR (Cockcroft-Gault) 9.4 9.2 Glucose Level 138 mg/dL (70-99) 95 mg/dL (70-99) Calcium Level 7.6 mg/dL (8.5-10.1) 7.4 mg/dL (8.5-10.1) Total Bilirubin 0.6 mg/dL (0.2-1.0) Direct Bilirubin 0.3 mg/dL (0.0-0.2) Aspartate Amino Transf (AST/SGOT) 13 U/L (15-37) Alanine Aminotransferase (ALT/SGPT) 10 U/L (16-63) Alkaline Phosphatase 103 U/L (46-116) Troponin I Quantitative 0.092 ng/mL (0.000-0.055) 0.223 ng/mL (0.000-0.055) Total Protein 6.2 g/dL (6.4-8.2) Albumin 2.5 g/dL (3.4-5.0) Lipase 301 U/L (73-393) Nasal Screen MRSA (PCR) Positive (Negative) Triglycerides Level 68 mg/dL (0-150) Test 07/04/18 11:40 07/05/18 05:20 Prothrombin Time 15.1 SEC (11.7-14.0) Prothromb Time International Ratio 1.2 (0.8-1.1) White Blood Count 4.3 x10^3/uL (4.0-11.0) Red Blood Count 4.88 x10^6/uL (4.30-5.70) Hemoglobin 13.2 g/dL (13.0-17.5) Hematocrit 39.9 % (39.0-53.0) Mean Corpuscular Volume 82 fL (79-100) Mean Corpuscular Hemoglobin 27 pg (25-35) Mean Corpuscular Hemoglobin Concent 33 g/dL (31-37) Red Cell Distribution Width 18.5 % (11.5-14.5) Platelet Count 255 x10^3/uL (140-400) Neutrophils (%) (Auto) 58 % (31-73) Lymphocytes (%) (Auto) 21 % (24-48) Monocytes (%) (Auto) 11 % (0-9) Eosinophils (%) (Auto) 7 % (0-3) Basophils (%) (Auto) 2 % (0-3) Neutrophils # (Auto) 2.5 x10^3uL (1.8-7.7) Lymphocytes # (Auto) 0.9 x10^3/uL (1.0-4.8) Monocytes # (Auto) 0.5 x10^3/uL (0.0-1.1) Eosinophils # (Auto) 0.3 x10^3/uL (0.0-0.7) Basophils # (Auto) 0.1 x10^3/uL (0.0-0.2) Sodium Level 136 mmol/L (136-145) Potassium Level 4.1 mmol/L (3.5-5.1) Chloride Level 100 mmol/L (98-107) Carbon Dioxide Level 21 mmol/L (21-32) Anion Gap 15 (6-14) Blood Urea Nitrogen 66 mg/dL (8-26) Creatinine 7.7 mg/dL (0.7-1.3) Estimated GFR (Cockcroft-Gault) 8.9 Glucose Level 90 mg/dL (70-99) Calcium Level 7.6 mg/dL (8.5-10.1) Phosphorus Level 7.0 mg/dL (2.6-4.7) Albumin 2.3 g/dL (3.4-5.0) Laboratory Tests Test 07/04/18 11:40 07/05/18 05:20 Prothrombin Time 15.1 SEC (11.7-14.0) Prothromb Time International Ratio 1.2 (0.8-1.1) White Blood Count 4.3 x10^3/uL (4.0-11.0) Red Blood Count 4.88 x10^6/uL (4.30-5.70) Hemoglobin 13.2 g/dL (13.0-17.5) Hematocrit 39.9 % (39.0-53.0) Mean Corpuscular Volume 82 fL (79-100) Mean Corpuscular Hemoglobin 27 pg (25-35) Mean Corpuscular Hemoglobin Concent 33 g/dL (31-37) Red Cell Distribution Width 18.5 % (11.5-14.5) Platelet Count 255 x10^3/uL (140-400) Neutrophils (%) (Auto) 58 % (31-73) Lymphocytes (%) (Auto) 21 % (24-48) Monocytes (%) (Auto) 11 % (0-9) Eosinophils (%) (Auto) 7 % (0-3) Basophils (%) (Auto) 2 % (0-3) Neutrophils # (Auto) 2.5 x10^3uL (1.8-7.7) Lymphocytes # (Auto) 0.9 x10^3/uL (1.0-4.8) Monocytes # (Auto) 0.5 x10^3/uL (0.0-1.1) Eosinophils # (Auto) 0.3 x10^3/uL (0.0-0.7) Basophils # (Auto) 0.1 x10^3/uL (0.0-0.2) Sodium Level 136 mmol/L (136-145) Potassium Level 4.1 mmol/L (3.5-5.1) Chloride Level 100 mmol/L (98-107) Carbon Dioxide Level 21 mmol/L (21-32) Anion Gap 15 (6-14) Blood Urea Nitrogen 66 mg/dL (8-26) Creatinine 7.7 mg/dL (0.7-1.3) Estimated GFR (Cockcroft-Gault) 8.9 Glucose Level 90 mg/dL (70-99) Calcium Level 7.6 mg/dL (8.5-10.1) Phosphorus Level 7.0 mg/dL (2.6-4.7) Albumin 2.3 g/dL (3.4-5.0) Medications Current Medications Labetalol HCl (Normodyne Iv Push) 10 mg 1X ONCE IVP Last administered on 18:03; Start 07/03/18 at 16:45; Stop 07/03/18 at 16:46; Status DC Ceftriaxone Sodium (Rocephin) 1 gm 1X ONCE IVP Last administered on 07/03/18 18:40; Start 07/03/18 at 17:30; Stop 07/03/18 at 17:31; Status DC Ondansetron HCl (Zofran) 4 mg PRN Q8HRS PRN IV NAUSEA/VOMITING Last administered on 07/03/18 18:40; Start 07/03/18 at 18:00; Stop 07/04/18 at 17:59 ; Status DC Morphine Sulfate (Morphine Sulfate) 2 mg PRN Q2HR PRN IV PAIN Last administered on 07/04/18 00:22; Start 07/03/18 at 18:00; Stop 07/04/18 at 17:59 ; Status DC Amlodipine Besylate (Norvasc) 10 mg DAILY PO Last administered on 07/05/18 08: 38; Start 07/04/18 at 09:00 Aspirin (Ecotrin) 325 mg DAILYWBKFT PO Last administered on 07/05/18 08:34; Start 07/04/18 at 08:00 Carvedilol (Coreg) 6.25 mg BIDWMEALS PO Last administered on 07/05/18 08:34; Start 07/04/18 at 08:00 Clonidine HCl (Catapres) 0.1 mg TID PO Last administered on 07/05/18 08:34; Start 07/03/18 at 21:00 Hydralazine HCl (Apresoline) 50 mg TID PO Last administered on 07/03/18 21:47 ; Start 07/03/18 at 21:00; Stop 07/04/18 at 11:18; Status DC Hydralazine HCl (Apresoline Inj) 20 mg PRN Q4HRS PRN IVP ELEVATED BP, SEE COMMENTS Last administered on 07/05/18 04:34; Start 07/03/18 at 20:45 Alprazolam (Xanax) 0.25 mg PRN BID PRN PO ANXIETY / AGITATION; Start 07/03/18 at 22:45 Calcium/Vitamin D (Oscal D 500mg/ 200uts) 1 tab BIDWMEALS PO Last administered on 07/05/18 08:33; Start 07/04/18 at 08:00 Ferrous Sulfate (Feosol) 325 mg BIDWMEALS PO Last administered on 07/05/18 08: 34; Start 07/04/18 at 08:00 Acetaminophen/ Hydrocodone Bitart (Lortab 5/325) 1 tab PRN Q6HRS PRN PO SEVERE PAIN; Start 07/03/18 at 22:45 Oxycodone/ Acetaminophen (Percocet 7.5/ 325) 1 tab PRN Q6HRS PRN PO PAIN Last administered on 07/05/18 08:38; Start 07/03/18 at 22:45 Furosemide (Lasix) 40 mg 1X ONCE IVP Last administered on 07/04/18 00:22; Start 07/03/18 at 23:00; Stop 07/03/18 at 23:01; Status DC Hydralazine HCl (Apresoline) 75 mg TID PO Last administered on 07/05/18 08:35 ; Start 07/04/18 at 14:00 Heparin Sodium (Porcine) (Heparin Sodium) 5,000 unit Q8HRS SQ ; Start 07/04/18 at 14:00 Labetalol HCl (Normodyne Iv Push) 10 mg PRN Q2HR PRN IVP HYPERTENSION, SEE COMMENTS Last administered on 07/05/18at 06:09; Start 07/05/18 at 06:00 Active Scripts Active Percocet 7.5-325 Mg Tablet (Oxycodone/Acetaminophen) 1 Each Tablet 1 Tab PO PRN Q6HRS PRN 3 Days Carvedilol (Carvedilol) 6.25 Mg Tablet 6.25 Mg PO BIDWMEALS 30 Days Hydrocodone-Apap 5-325 (Hydrocodone Bit/Acetaminophen) 1 Each Tablet 1 Tab PO PRN Q6HRS PRN Furosemide 40 Mg Tablet 40 Mg PO [id number] 30 Days Oyster Shell 500 Mg + Vit D Tb (Calcium Carbonate/Vitamin D3) 1 Each Tablet 1 Tab PO BIDWMEALS 30 Days Alprazolam 0.25 Mg Tablet 0.25 Mg PO PRN BID PRN 10 Days Feosol (Ferrous Sulfate) 325 Mg Tablet 325 Mg PO BIDWMEALS 30 Days Aspirin Ec (Aspirin) 325 Mg Tablet.dr 325 Mg PO [id number] 30 Days Reported Amlodipine Besylate 10 Mg Tablet 10 Mg PO DAILY Hydralazine Hcl 50 Mg Tablet 1 Tab PO TID Clonidine Hcl 0.1 Mg Tablet 0.1 Mg PO TID Vitals/I & O Vital Sign - Last 24 Hours 07/04/18 07/04/18 07/04/18 07/04/18 11:04 11:43 12:35 12:36 Pulse 75 75 75 75 B/P (MAP) 166/111 (129) 166/111 166/111 166/111 Pulse Ox 94 O2 Delivery Room Air 07/04/18 07/04/18 07/04/18 07/04/18 13:19 14:00 14:00 16:14 Pulse 78 78 69 B/P (MAP) 103/79 103/79 122/83 (96) Pulse Ox 94 O2 Delivery Room Air Room Air 07/04/18 07/04/18 07/04/18 07/04/18 17:01 19:26 20:00 20:00 Temp 98.4 98.4 Pulse 69 62 Resp 35 B/P (MAP) 122/83 128/65 (86) Pulse Ox 98 95 O2 Delivery Room Air Room Air Room Air 07/04/18 07/04/18 07/04/18 07/05/18 20:26 20:57 21:02 00:00 Temp 98.8 98.8 Pulse 49 62 66 Resp 15 B/P (MAP) 127/87 127/87 148/100 (116) Pulse Ox 98 98 O2 Delivery Room Air Room Air 07/05/18 07/05/18 07/05/18 07/05/18 04:00 04:34 06:09 08:00 Temp 98.5 97.7 98.5 97.7 Pulse 83 66 75 62 Resp 18 B/P (MAP) 179/113 (135) 179/113 180/106 148/98 (115) Pulse Ox 95 96 O2 Delivery Room Air Room Air 07/05/18 07/05/18 07/05/18 07/05/18 08:00 08:34 08:34 08:35 Pulse 62 62 62 B/P (MAP) 148/98 148/98 148/98 O2 Delivery Room Air 07/05/18 07/05/18 08:38 08:38 Pulse 62 Resp 18 B/P (MAP) 148/98 Pulse Ox 96 O2 Delivery Room Air Intake and Output 07/04/18 07/04/18 07/05/18 14:59 22:59 06:59 Intake Total 0 ml Balance 0 ml Nutrition Consultation Dietary Evaluation: Recommendations by RD: Protein supplementation Comments: Recommend switch to renal diet due to ESRD and peritoneal dialysis Recommend supplement diet w/ Nepro TID Expected Outcomes/Goals: P.O. intake to meet >75% estimated needs Interpretation of weight loss: >10% in 6 months Malnutrition Findings: Weight Status: Appropriate ROSALEE DAVIES MD Jul 05, 2018 10:41
--- NOTE | 2018-07-05 11:51 | PDOC ---
Renal-Progress Notes Subjective Notes Notes FEELS BETTER, HAD SOME CRAMPING AFTER ASCITES DRAIN YESTERDAY, DOING BETTER NOW History of Present Illness Hx of present illness IMPROVED Vitals Vitals Vital Signs Date Time Temp Pulse Resp B/P (MAP) Pulse Ox O2 Delivery O2 Flow Rate FiO2 07/05/18 08:38 18 96 Room Air 07/05/18 08:38 62 148/98 07/05/18 08:00 97.7 97.7 Weight Weight [ ] I.O. Intake and Output Intake and Output 07/05/18 06:59 Intake Total 0 ml Balance 0 ml Intake Oral 0 ml # Voids 1 Labs Labs Laboratory Tests Test 07/05/18 05:20 White Blood Count 4.3 x10^3/uL (4.0-11.0) Red Blood Count 4.88 x10^6/uL (4.30-5.70) Hemoglobin 13.2 g/dL (13.0-17.5) Hematocrit 39.9 % (39.0-53.0) Mean Corpuscular Volume 82 fL (79-100) Mean Corpuscular Hemoglobin 27 pg (25-35) Mean Corpuscular Hemoglobin Concent 33 g/dL (31-37) Red Cell Distribution Width 18.5 % (11.5-14.5) Platelet Count 255 x10^3/uL (140-400) Neutrophils (%) (Auto) 58 % (31-73) Lymphocytes (%) (Auto) 21 % (24-48) Monocytes (%) (Auto) 11 % (0-9) Eosinophils (%) (Auto) 7 % (0-3) Basophils (%) (Auto) 2 % (0-3) Neutrophils # (Auto) 2.5 x10^3uL (1.8-7.7) Lymphocytes # (Auto) 0.9 x10^3/uL (1.0-4.8) Monocytes # (Auto) 0.5 x10^3/uL (0.0-1.1) Eosinophils # (Auto) 0.3 x10^3/uL (0.0-0.7) Basophils # (Auto) 0.1 x10^3/uL (0.0-0.2) Sodium Level 136 mmol/L (136-145) Potassium Level 4.1 mmol/L (3.5-5.1) Chloride Level 100 mmol/L (98-107) Carbon Dioxide Level 21 mmol/L (21-32) Anion Gap 15 (6-14) Blood Urea Nitrogen 66 mg/dL (8-26) Creatinine 7.7 mg/dL (0.7-1.3) Estimated GFR (Cockcroft-Gault) 8.9 Glucose Level 90 mg/dL (70-99) Calcium Level 7.6 mg/dL (8.5-10.1) Phosphorus Level 7.0 mg/dL (2.6-4.7) Albumin 2.3 g/dL (3.4-5.0) Review of Systems Constitutional: yes: alert, oriented Ears/Nose/Throat: Yes: no symptom reported Eyes: Yes: no symptom reported Cardiovascular: Yes no symptom reported Gastrointestional: Yes: epigastric pain Genitourinary: Yes: no symptom reported Musculoskeletal: Yes: no symptom reported Skin: Yes no symptom reported Psychiatric/Neurological: Yes: no symptom reported Endocrine: Yes: no symptom reported Hematologic/Lymphatic: Yes: no symptom reported Physical Exam General Appearance: no apparent distress Respiratory: bilateral CTA Heart: S1S2, RRR Abdomen: soft Genitourinary: bladder flat Extremities: pulses present Neurology: alert, oriented Assessment Assessment IMP MALIGNANT HTN-BETTER EXACERBATION OF COPD-NO SOB ACUTE HYPOXIC RESP FAILURE-RESOLVED NON COMPLIANCE ASCITES OF UNKNOWN ETIOLOGY-S/P 3.9 LITER DRAIN VIA PD CATHETER YESTERDAY MILD PULMONARY VASCULAR CONGESTION-RESOLVED ABD PAIN-RESOLVED S/P RECENT UMBILICAL HERNIA REPAIR ELEVATED TROPONIN ESRD - RECENT CONVERSION FROM HD TO PD PLAN CARDIOLOGY EVALUATION HTN MED CHANGES PER CARDIOLOGY ENCOURAGE COMPLIANCE WILL FOLLOW D/W GI AND CARDIOLOGY OK TO D/C FROM RENAL STANDPOINT OSIRIS MEADOWS MD Jul 05, 2018 11:51
[2018-07-05 12:00] VITALS: BP 92/59
--- NOTE | 2018-07-05 14:04 | PDOC ---
Subjective: Subjective: Thinks he's going home today - asks if I can send him w/ pain meds Abd feels the same. Tolerating some PO but not very hungry. Stooled the day before yesterday. Objective: Vital Signs: Vital Signs Date Time Temp Pulse Resp B/P (MAP) Pulse Ox O2 Delivery O2 Flow Rate FiO2 07/05/18 12:00 97.6 73 16 92/59 (70) 95 Room Air 97.6 Labs: Laboratory Tests Test 07/05/18 05:20 White Blood Count 4.3 x10^3/uL Red Blood Count 4.88 x10^6/uL Hemoglobin 13.2 g/dL Hematocrit 39.9 % Mean Corpuscular Volume 82 fL Mean Corpuscular Hemoglobin 27 pg Mean Corpuscular Hemoglobin Concent 33 g/dL Red Cell Distribution Width 18.5 % Platelet Count 255 x10^3/uL Neutrophils (%) (Auto) 58 % Lymphocytes (%) (Auto) 21 % Monocytes (%) (Auto) 11 % Eosinophils (%) (Auto) 7 % Basophils (%) (Auto) 2 % Neutrophils # (Auto) 2.5 x10^3uL Lymphocytes # (Auto) 0.9 x10^3/uL Monocytes # (Auto) 0.5 x10^3/uL Eosinophils # (Auto) 0.3 x10^3/uL Basophils # (Auto) 0.1 x10^3/uL Sodium Level 136 mmol/L Potassium Level 4.1 mmol/L Chloride Level 100 mmol/L Carbon Dioxide Level 21 mmol/L Anion Gap 15 Blood Urea Nitrogen 66 mg/dL Creatinine 7.7 mg/dL Estimated GFR (Cockcroft-Gault) 8.9 Glucose Level 90 mg/dL Calcium Level 7.6 mg/dL Phosphorus Level 7.0 mg/dL Albumin 2.3 g/dL PE: GEN: NAD HEENT: eyes closed LUNGS: CTAB HEART: RRR ABD: stable - some distention/round, soft, PD cath to left NEURO/PSYCH: A & O 3 A/P: Abd pain ESRD on PD Ascites - doubt portal hypertension, extensive workup per consult note -- DC and pain meds per primary. Follow-up for outpt 'scopes when feasible re: chronic anemia. NEGAR CLEMONS Jul 05, 2018 14:04
--- NOTE | 2018-07-05 15:38 | PDOC3 ---
Discharge Summary Date of Admission: Jul 03, 2018 Date of Discharge: Jul 05, 2018 Follow-Up: 3-5 days Admitting Diagnosis comment: DISCHARGE DX Assessment/Plan IMPRESSION: malignant htn, severe, remains poor control Congestive heart failure acute. VOLUME overload likely , flash pulm edema pulmonary vasculature congestion noted.CXR severe concentric left ventricular hypertrophy. on recent ECHO 05/31 acute hypoxic resp failure Moderate ascites. etiology most likely related to hypoalbuminemia. Liver disease work up so far negative. No further work up deemed necessary from the GI stand point of view Status post umbilical hernia repair and with peritoneal dialysis catheter placement. End-stage renal disease recent transition to PD Abdominal pain secondary to the ascites, very low suspicion for SBP narcotic induced constipation most likely encouraged to take Miralax and docusate on a daily basis when taking narcotic medications Essential hypertension , uncontrolled History of GERD MILD TROPONIN I ELEVATION, LEAK// CKD plan admit GI consult NO PARACENTESIS nephrology consult inc hydralazine to 75 mg po tid NO paracentesis iv lasix 40 mg x 1 07/03 o2 support iv hydralazine 10 mg q 4 hrs prn bp support HOME MEDS ICU BED 36 min cc time Vitals Vitals Vital Signs Date Time Temp Pulse Resp B/P (MAP) Pulse Ox O2 Delivery O2 Flow Rate FiO2 07/05/18 08:38 18 96 Room Air 07/05/18 08:38 62 148/98 07/05/18 08:00 97.7 97.7 Physical Exam General: Alert, Oriented X3, Cooperative, No acute distress Heart: Regular rate, Normal S1, Normal S2 Lungs: Clear, Crackles, Other (less distress) Abdomen: Normal bowel sounds, Soft, Other (POS ASCITES, PD SITE CLEAN) Extremities: No clubbing, No cyanosis Skin: No breakdown Labs FINAL DIAGNOSIS Problems Medical Problems: (1) Pulmonary vascular congestion Status: Acute Brief Hospital Course Mr. Boswell is a 53 old [sex] who presented with [ MALIGNANT HTN/ ESRD] CONDITION AT DISCHARGE: Improved Discharge Medications Current Medications Labetalol HCl (Normodyne Iv Push) 10 mg 1X ONCE IVP Last administered on at 18:03; Start 07/03/18 at 16:45; Stop 07/03/18 at 16:46; Status DC Ceftriaxone Sodium (Rocephin) 1 gm 1X ONCE IVP Last administered on 07/03/18 18:40; Start 07/03/18 at 17:30; Stop 07/03/18 at 17:31; Status DC Ondansetron HCl (Zofran) 4 mg PRN Q8HRS PRN IV NAUSEA/VOMITING Last administered on 07/03/18 18:40; Start 07/03/18 at 18:00; Stop 07/04/18 at 17:59 ; Status DC Morphine Sulfate (Morphine Sulfate) 2 mg PRN Q2HR PRN IV PAIN Last administered on 07/04/18 00:22; Start 07/03/18 at 18:00; Stop 07/04/18 at 17:59 ; Status DC Amlodipine Besylate (Norvasc) 10 mg DAILY PO Last administered on 07/05/18 08: 38; Start 07/04/18 at 09:00 Aspirin (Ecotrin) 325 mg DAILYWBKFT PO Last administered on 07/05/18 08:34; Start 07/04/18 at 08:00 Carvedilol (Coreg) 6.25 mg BIDWMEALS PO Last administered on 07/05/18 08:34; Start 07/04/18 at 08:00 Clonidine HCl (Catapres) 0.1 mg TID PO Last administered on 07/05/18 08:34; Start 07/03/18 at 21:00 Hydralazine HCl (Apresoline) 50 mg TID PO Last administered on 07/03/18at 21:47 ; Start 07/03/18 at 21:00; Stop 07/04/18 at 11:18; Status DC Hydralazine HCl (Apresoline Inj) 20 mg PRN Q4HRS PRN IVP ELEVATED BP, SEE COMMENTS Last administered on 07/05/18 04:34; Start 07/03/18 at 20:45 Alprazolam (Xanax) 0.25 mg PRN BID PRN PO ANXIETY / AGITATION; Start 07/03/18 at 22:45 Calcium/Vitamin D (Oscal D 500mg/ 200uts) 1 tab BIDWMEALS PO Last administered on 07/05/18 08:33; Start 07/04/18 at 08:00 Ferrous Sulfate (Feosol) 325 mg BIDWMEALS PO Last administered on 07/05/18at 08: 34; Start 07/04/18 at 08:00 Acetaminophen/ Hydrocodone Bitart (Lortab 5/325) 1 tab PRN Q6HRS PRN PO MODERATE PAIN; Start 07/03/18 at 22:45 Oxycodone/ Acetaminophen (Percocet 7.5/ 325) 1 tab PRN Q6HRS PRN PO SEVERE PAIN Last administered on 07/05/18at 08:38; Start 07/03/18 at 22:45 Furosemide (Lasix) 40 mg 1X ONCE IVP Last administered on 07/04/18at 00:22; Start 07/03/18 at 23:00; Stop 07/03/18 at 23:01; Status DC Hydralazine HCl (Apresoline) 75 mg TID PO Last administered on 07/05/18at 08:35 ; Start 07/04/18 at 14:00; Stop 07/05/18 at 21:00 Heparin Sodium (Porcine) (Heparin Sodium) 5,000 unit Q8HRS SQ ; Start 07/04/18 at 14:00 Labetalol HCl (Normodyne Iv Push) 10 mg PRN Q2HR PRN IVP HYPERTENSION, SEE COMMENTS Last administered on 07/05/18at 06:09; Start 07/05/18 at 06:00 Hydralazine HCl (Apresoline) 25 mg TID PO ; Start 07/05/18 at 21:00 Active Scripts Active Percocet 7.5-325 Mg Tablet (Oxycodone/Acetaminophen) 1 Each Tablet 1 Tab PO PRN Q6HRS PRN 3 Days Carvedilol (Carvedilol) 6.25 Mg Tablet 6.25 Mg PO BIDWMEALS 30 Days Hydrocodone-Apap 5-325 (Hydrocodone Bit/Acetaminophen) 1 Each Tablet 1 Tab PO PRN Q6HRS PRN Furosemide 40 Mg Tablet 40 Mg PO BID92 30 Days Oyster Shell 500 Mg + Vit D Tb (Calcium Carbonate/Vitamin D3) 1 Each Tablet 1 Tab PO BIDWMEALS 30 Days Alprazolam 0.25 Mg Tablet 0.25 Mg PO PRN BID PRN 10 Days Feosol (Ferrous Sulfate) 325 Mg Tablet 325 Mg PO BIDWMEALS 30 Days Aspirin Ec (Aspirin) 325 Mg Tablet.dr 325 Mg PO DAILYWBKFT 30 Days Reported Amlodipine Besylate 10 Mg Tablet 10 Mg PO DAILY Hydralazine Hcl 50 Mg Tablet 1 Tab PO TID Clonidine Hcl 0.1 Mg Tablet 0.1 Mg PO TID Vital Signs Vital Signs Date Time Temp Pulse Resp B/P (MAP) Pulse Ox O2 Delivery O2 Flow Rate FiO2 07/05/18 12:00 97.6 73 16 92/59 (70) 95 Room Air 97.6 Labs Laboratory Tests Test 07/03/18 16:25 07/03/18 17:20 07/03/18 23:40 07/04/18 03:50 White Blood Count 5.3 x10^3/uL (4.0-11.0) 4.9 x10^3/uL (4.0-11.0) Red Blood Count 4.70 x10^6/uL (4.30-5.70) 4.32 x10^6/uL (4.30-5.70) Hemoglobin 12.4 g/dL (13.0-17.5) 11.4 g/dL (13.0-17.5) Hematocrit 38.8 % (39.0-53.0) 35.3 % (39.0-53.0) Mean Corpuscular Volume 83 fL (79-100) 82 fL (79-100) Mean Corpuscular Hemoglobin 26 pg (25-35) 26 pg (25-35) Mean Corpuscular Hemoglobin Concent 32 g/dL (31-37) 32 g/dL (31-37) Red Cell Distribution Width 18.3 % (11.5-14.5) 18.2 % (11.5-14.5) Platelet Count 244 x10^3/uL (140-400) 231 x10^3/uL (140-400) Neutrophils (%) (Auto) 70 % (31-73) 65 % (31-73) Lymphocytes (%) (Auto) 15 % (24-48) 16 % (24-48) Monocytes (%) (Auto) 11 % (0-9) 14 % (0-9) Eosinophils (%) (Auto) 3 % (0-3) 4 % (0-3) Basophils (%) (Auto) 2 % (0-3) 2 % (0-3) Neutrophils # (Auto) 3.7 x10^3uL (1.8-7.7) 3.2 x10^3uL (1.8-7.7) Lymphocytes # (Auto) 0.8 x10^3/uL (1.0-4.8) 0.8 x10^3/uL (1.0-4.8) Monocytes # (Auto) 0.6 x10^3/uL (0.0-1.1) 0.7 x10^3/uL (0.0-1.1) Eosinophils # (Auto) 0.1 x10^3/uL (0.0-0.7) 0.2 x10^3/uL (0.0-0.7) Basophils # (Auto) 0.1 x10^3/uL (0.0-0.2) 0.1 x10^3/uL (0.0-0.2) Sodium Level 136 mmol/L (136-145) 137 mmol/L (136-145) Potassium Level 4.0 mmol/L (3.5-5.1) 4.0 mmol/L (3.5-5.1) Chloride Level 101 mmol/L (98-107) 102 mmol/L (98-107) Carbon Dioxide Level 21 mmol/L (21-32) 21 mmol/L (21-32) Anion Gap 14 (6-14) 14 (6-14) Blood Urea Nitrogen 63 mg/dL (8-26) 64 mg/dL (8-26) Creatinine 7.4 mg/dL (0.7-1.3) 7.5 mg/dL (0.7-1.3) Estimated GFR (Cockcroft-Gault) 9.4 9.2 Glucose Level 138 mg/dL (70-99) 95 mg/dL (70-99) Calcium Level 7.6 mg/dL (8.5-10.1) 7.4 mg/dL (8.5-10.1) Total Bilirubin 0.6 mg/dL (0.2-1.0) Direct Bilirubin 0.3 mg/dL (0.0-0.2) Aspartate Amino Transf (AST/SGOT) 13 U/L (15-37) Alanine Aminotransferase (ALT/SGPT) 10 U/L (16-63) Alkaline Phosphatase 103 U/L (46-116) Troponin I Quantitative 0.092 ng/mL (0.000-0.055) 0.223 ng/mL (0.000-0.055) Total Protein 6.2 g/dL (6.4-8.2) Albumin 2.5 g/dL (3.4-5.0) Lipase 301 U/L (73-393) Nasal Screen MRSA (PCR) Positive (Negative) Triglycerides Level 68 mg/dL (0-150) Test 07/04/18 11:40 07/05/18 05:20 Prothrombin Time 15.1 SEC (11.7-14.0) Prothromb Time International Ratio 1.2 (0.8-1.1) White Blood Count 4.3 x10^3/uL (4.0-11.0) Red Blood Count 4.88 x10^6/uL (4.30-5.70) Hemoglobin 13.2 g/dL (13.0-17.5) Hematocrit 39.9 % (39.0-53.0) Mean Corpuscular Volume 82 fL (79-100) Mean Corpuscular Hemoglobin 27 pg (25-35) Mean Corpuscular Hemoglobin Concent 33 g/dL (31-37) Red Cell Distribution Width 18.5 % (11.5-14.5) Platelet Count 255 x10^3/uL (140-400) Neutrophils (%) (Auto) 58 % (31-73) Lymphocytes (%) (Auto) 21 % (24-48) Monocytes (%) (Auto) 11 % (0-9) Eosinophils (%) (Auto) 7 % (0-3) Basophils (%) (Auto) 2 % (0-3) Neutrophils # (Auto) 2.5 x10^3uL (1.8-7.7) Lymphocytes # (Auto) 0.9 x10^3/uL (1.0-4.8) Monocytes # (Auto) 0.5 x10^3/uL (0.0-1.1) Eosinophils # (Auto) 0.3 x10^3/uL (0.0-0.7) Basophils # (Auto) 0.1 x10^3/uL (0.0-0.2) Sodium Level 136 mmol/L (136-145) Potassium Level 4.1 mmol/L (3.5-5.1) Chloride Level 100 mmol/L (98-107) Carbon Dioxide Level 21 mmol/L (21-32) Anion Gap 15 (6-14) Blood Urea Nitrogen 66 mg/dL (8-26) Creatinine 7.7 mg/dL (0.7-1.3) Estimated GFR (Cockcroft-Gault) 8.9 Glucose Level 90 mg/dL (70-99) Calcium Level 7.6 mg/dL (8.5-10.1) Phosphorus Level 7.0 mg/dL (2.6-4.7) Albumin 2.3 g/dL (3.4-5.0) Laboratory Tests Test 07/05/18 05:20 White Blood Count 4.3 x10^3/uL (4.0-11.0) Red Blood Count 4.88 x10^6/uL (4.30-5.70) Hemoglobin 13.2 g/dL (13.0-17.5) Hematocrit 39.9 % (39.0-53.0) Mean Corpuscular Volume 82 fL (79-100) Mean Corpuscular Hemoglobin 27 pg (25-35) Mean Corpuscular Hemoglobin Concent 33 g/dL (31-37) Red Cell Distribution Width 18.5 % (11.5-14.5) Platelet Count 255 x10^3/uL (140-400) Neutrophils (%) (Auto) 58 % (31-73) Lymphocytes (%) (Auto) 21 % (24-48) Monocytes (%) (Auto) 11 % (0-9) Eosinophils (%) (Auto) 7 % (0-3) Basophils (%) (Auto) 2 % (0-3) Neutrophils # (Auto) 2.5 x10^3uL (1.8-7.7) Lymphocytes # (Auto) 0.9 x10^3/uL (1.0-4.8) Monocytes # (Auto) 0.5 x10^3/uL (0.0-1.1) Eosinophils # (Auto) 0.3 x10^3/uL (0.0-0.7) Basophils # (Auto) 0.1 x10^3/uL (0.0-0.2) Sodium Level 136 mmol/L (136-145) Potassium Level 4.1 mmol/L (3.5-5.1) Chloride Level 100 mmol/L (98-107) Carbon Dioxide Level 21 mmol/L (21-32) Anion Gap 15 (6-14) Blood Urea Nitrogen 66 mg/dL (8-26) Creatinine 7.7 mg/dL (0.7-1.3) Estimated GFR (Cockcroft-Gault) 8.9 Glucose Level 90 mg/dL (70-99) Calcium Level 7.6 mg/dL (8.5-10.1) Phosphorus Level 7.0 mg/dL (2.6-4.7) Albumin 2.3 g/dL (3.4-5.0) Allergies Allergies Coded Allergies Type Severity Reaction Last Updated Verified lisinopril Allergy Severe Swelling 06/03/18 Yes I S O L A T I O N *CONTACT* Allergy Unknown 06/03/18 Yes codeine Adverse Reaction Mild itching 06/03/18 Yes Disposition/Orders: D/C to Home Patient Instructions D/C PLANNING 33 MIN ROSALEE DAVIES MD Jul 05, 2018 15:38
[2018-07-05] MEDS ORDERED: HYDR-2868 PO (15:39)
--- NOTE | 2018-07-05 15:41 | DISCH ---
DISCHARGE INSTRUCTIONS Condition on Discharge Condition on Discharge: Stable Activity After Discharge Activity Instructions for Disc: Activity as tolerated Lifting Instructions after Dis: No heavy lifting, No pulling or pushing, Do not lift >10 pounds Exercise Instruction after Dis: Progress as tolerated Driving Instructions after Dis: Do not drive Weight Bearing Status after Di: As tolerated Diet after Discharge Diet after Discharge: Renal Dialysis Diet Texture: Regular Liquid Texture: Thin Liquid Swallowing Supervision: None needed Wound Incision Care Wound/Incision Care: Reinforce dressing PRN Checks after Discharge Checks after discharge: Check blood press - daily, Weigh Yourself Daily Contacting the DR. after DC Call your doctor for: If your condition worsens Treatment/Equipment after DC Adaptive Equipment Issued: None ROSALEE DAVIES MD Jul 05, 2018 15:41
[2018-07-05 17:31] LABS: CHOLESTEROL/HDL RATIO 3.4
--- NOTE | 2018-07-05 18:14 | NUR ---
Patient d/c from room 104 at 1805. Dinner eaten, d/c instructions given/signed. PIV removed by RN. Patient aware of dialysis tomorrow. No further questions, no prescriptions given. All belongings taken with patient at time of d/c.
[2018-07-05] MEDS ORDERED: hydrALAZINE 25 MG TABLET PO SCH (21:00)
== END 2018-07-05 18:05 | disposition home or self-care (01) | DRG 291 ==
LOC: ER 15:22 → 1 WEST ICU 17:39
PROVIDERS: ADMIT Family Medicine; ATTEND Family Medicine
DX: I13.2 Hypertensive heart and chronic kidney disease with heart failure and with stage 5 chronic kidney disease, or end stage renal disease (principal); I50.33 Acute on chronic diastolic (congestive) heart failure; J96.01 Acute respiratory failure with hypoxia; N18.6 End stage renal disease; I16.1 Hypertensive emergency; R18.8 Other ascites; J44.1 Chronic obstructive pulmonary disease with (acute) exacerbation; G62.9 Polyneuropathy, unspecified; E88.09 Other disorders of plasma-protein metabolism, not elsewhere classified; M19.90 Unspecified osteoarthritis, unspecified site; F41.9 Anxiety disorder, unspecified; K59.03 Drug induced constipation; T40.605A Adverse effect of unspecified narcotics, initial encounter; K21.9 Gastro-esophageal reflux disease without esophagitis; G89.29 Other chronic pain; D64.9 Anemia, unspecified; Z99.2 Dependence on renal dialysis; Z86.73 Personal history of transient ischemic attack (TIA), and cerebral infarction without residual deficits; Z88.5 Allergy status to narcotic agent; Z88.8 Allergy status to other drugs, medicaments and biological substances; Z82.49 Family history of ischemic heart disease and other diseases of the circulatory system; Z82.3 Family history of stroke; Y92.89 Other specified places as the place of occurrence of the external cause; Z91.19 Patient's noncompliance with other medical treatment and regimen; Z79.891 Long term (current) use of opiate analgesic; Z98.1 Arthrodesis status
CPT/HCPCS: 36415; 71045; 74176; 76705; 80048; 80061; 80069; 80076; 83690; 84478; 84484; 85025; 85610; 87641; 93005; 93308; 93320; 93325; 96374; 96375; J0360; J0696; J1940; J2270; J2405; J3490; 99285-25

== ENCOUNTER 2018-10-22 02:38 | Emergency (ER) | payer OTHER ==
[~2018-10-22] VITALS: Ht 172.7 cm; Wt 63.5 kg
[~2018-10-22 02:38] MED LIST changes: +ALBU2.5V8 NEB; +CETI10TA16 PO; +DOCU-109 PO; +HYDR-2868 PO; +LIDO700A21 TD; +POLY17PO28 PO
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
[2018-10-22 03:33] LABS: BASO # 0.1 x10^3/uL (0.0-0.2); BASO % 2 % (0-3); EOS # 0.2 x10^3/uL (0.0-0.7); EOS % 4 % (0-3); HEMATOCRIT 41.6 % (39.0-53.0); HEMOGLOBIN 13.6 g/dL (13.0-17.5); LYMPH # 0.7 x10^3/uL (1.0-4.8); LYMPH % 13 % (24-48); MEAN CORPUSCULAR HEMOGLOBIN 28 pg (25-35); MEAN CORPUSCULAR HGB CONC 33 g/dL (31-37); MEAN CORPUSCULAR VOLUME 86 fL (79-100); MONO # 0.6 x10^3/uL (0.0-1.1); MONO % 11 % (0-9); NEUT # 3.7 x10^3/uL (1.8-7.7); NEUT % 70 % (31-73); PLATELET COUNT 186 x10^3/uL (140-400); RED BLOOD COUNT 4.86 x10^6/uL (4.30-5.70); RED CELL DISTRIBUTION WIDTH 15.2 % (11.5-14.5); WHITE BLOOD COUNT 5.4 x10^3/uL (4.0-11.0)
[2018-10-22 03:42] LABS: PROTHROMBIN TIME PATIENT 13.6 SEC (11.7-14.0)
[2018-10-22] MEDS ORDERED: cloNIDine HCL 0.1 MG TABLET PO ONE (03:45)
[2018-10-22] MEDS ORDERED: hydrALAZINE 20 MG/ML VIAL. IVP ONE (03:45)
[2018-10-22] MEDS ORDERED: HYOSCYAMINE 0.125 MG TAB.RAPDIS PO ONE (03:45)
[2018-10-22 03:48] VITALS: BP 185/125
[2018-10-22 03:48] LABS: CALCIUM 7.9 mg/dL (8.5-10.1); CREATININE 6.9 mg/dL (0.7-1.3); GFR 10.1; POTASSIUM 3.6 mmol/L (3.5-5.1)
[2018-10-22 03:55] LABS: ALBUMIN 2.5 g/dL (3.4-5.0); ALBUMIN/GLOBULIN RATIO 0.7 (1.0-1.7); TOTAL BILIRUBIN 0.5 mg/dL (0.2-1.0); TOTAL PROTEIN 6.2 g/dL (6.4-8.2)
[2018-10-22 04:14] LABS: BILIRUBIN,URINE NEGATIVE (NEG); CLARITY,URINE CLEAR; COLOR,URINE YELLOW; NITRITE,URINE NEGATIVE (NEG); PH,URINE 7.5; PROTEIN,URINE 100 mg/dL (NEG-TRACE); UROBILINOGEN,URINE 0.2 mg/dL (0.2 mg/dL)
[2018-10-22] MEDS ORDERED: CLON0.1T PO (04:18)
[2018-10-22 04:28] LABS: BACTERIA,URINE 0 /HPF (0-FEW); SQUAMOUS EPITHELIAL CELL,UR OCC /LPF; WBC,URINE OCC /HPF (0-4)
[2018-10-22] MEDS ORDERED: BUMETANIDE 1 MG/4 ML VIAL. IV ONE (04:30)
[2018-10-22] MEDS ORDERED: IPRATRPIUM/ALBUTEROL 0.5/2.5MG 3 ML NEBU. NEB ONE (05:15)
--- NOTE | 2018-10-22 08:36 | RAD ---
CHEST PA LATERAL Clinical indications: Cough and shortness of air. COMPARISON: September 12, 2018. Findings: Persistent large right-sided pleural effusion and associated compressive atelectasis or consolidative right lung base infiltrate is seen. This is stable. The left lung field is unchanged. The heart size, pulmonary vasculature, mediastinum and both bony are stable. The osseous structures appear intact. Impression: Stable large right-sided pleural effusion and associated compressive atelectasis or consolidative infiltrate. Electronically signed by: Obed Vanegas MD (10/22/2018 8:33 AM) [facility]
--- NOTE | 2018-10-23 11:52 | EKG ---
[facility] [address] [place] [address] Test Date: 2018-10-22 Test Time: 03:37:11 Pat Name: FRANKIE GARCIA Department: Room: Gender: M [employer]: : 1965 Requested By: MARIA ELENA ROD Order Number: [id number] Reading MD: Measurements Intervals Herod Rate: 81 P: 55 [place]: 136 QRS: 51 QRSD: 88 T: 62 QT: 434 QTc: 505 Interpretive Statements SINUS RHYTHM PROLONGED QT NO SPECIFIC ECG ABNORMALITIES RI6.01 Unconfirmed report No previous ECG available for comparison
== END 2018-10-22 05:40 | disposition home or self-care (01) ==
LOC: ER 02:38
DX: K42.9 Umbilical hernia without obstruction or gangrene (principal); J90 Pleural effusion, not elsewhere classified; G89.29 Other chronic pain; I13.11 Hypertensive heart and chronic kidney disease without heart failure, with stage 5 chronic kidney disease, or end stage renal disease; N18.6 End stage renal disease; R06.02 Shortness of breath; Z99.2 Dependence on renal dialysis; Z98.1 Arthrodesis status; Z98.890 Other specified postprocedural states
CPT/HCPCS: 36415; 71046; 80053; 81001; 82553; 83605; 83690; 83735; 84484; 85025; 85610; 85730; 93005; 94640; 96374; 96375; 99285; J0360; J3490; J7620

== ENCOUNTER 2018-10-30 00:39 | Inpatient (IN) | payer OTHER ==
[~2018-10-30] VITALS: Ht 172.7 cm; Wt 65.1 kg
[2018-10-30] VITALS (10 sets, daily range): BP systolic 102–183; BP diastolic 73–115
[2018-10-30] MEDS ORDERED: LABETALOL 20 MG/4 ML DISP.SYRIN. IVP PRN (01:00)
[2018-10-30 01:10] LABS: BASO % 0 % (0-3); EOS # 0.2 x10^3/uL (0.0-0.7); EOS % 5 % (0-3); HEMOGLOBIN 12.8 g/dL (13.0-17.5); LYMPH # 0.9 x10^3/uL (1.0-4.8); LYMPH % 18 % (24-48); MEAN CORPUSCULAR HEMOGLOBIN 29 pg (25-35); MEAN CORPUSCULAR HGB CONC 34 g/dL (31-37); MEAN CORPUSCULAR VOLUME 85 fL (79-100); MONO # 0.6 x10^3/uL (0.0-1.1); MONO % 12 % (0-9); NEUT # 3.3 x10^3/uL (1.8-7.7); NEUT % 65 % (31-73); PLATELET COUNT 210 x10^3/uL (140-400); RED BLOOD COUNT 4.46 x10^6/uL (4.30-5.70); RED CELL DISTRIBUTION WIDTH 15.7 % (11.5-14.5)
[2018-10-30] MEDS ORDERED: NITROGLYCERIN OINT 1 GM PACKET. TP ONE (01:15)
[2018-10-30 01:20] LABS: PROTHROMBIN TIME PATIENT 14.3 SEC (11.7-14.0)
[2018-10-30 01:21] LABS: CALCIUM 8.3 mg/dL (8.5-10.1); CREATININE 7.2 mg/dL (0.7-1.3); GFR 9.7; POTASSIUM 3.7 mmol/L (3.5-5.1)
[2018-10-30 01:27] LABS: ALBUMIN 2.6 g/dL (3.4-5.0); ALBUMIN/GLOBULIN RATIO 0.8 (1.0-1.7); MAGNESIUM 2.2 mg/dL (1.8-2.4); TOTAL BILIRUBIN 0.6 mg/dL (0.2-1.0); TOTAL PROTEIN 5.9 g/dL (6.4-8.2)
[2018-10-30 01:46] LABS: BILIRUBIN,URINE NEGATIVE (NEG); CLARITY,URINE CLEAR; COLOR,URINE YELLOW; NITRITE,URINE NEGATIVE (NEG); PROTEIN,URINE 100 mg/dL (NEG-TRACE); UROBILINOGEN,URINE 0.2 mg/dL (0.2 mg/dL)
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
[2018-10-30 02:00] LABS: SQUAMOUS EPITHELIAL CELL,UR FEW /LPF
[2018-10-30 02:01] LABS: AMORPHOUS SEDIMENT,UR PRESENT /HPF; BACTERIA,URINE 0 /HPF (0-FEW); RBC,URINE OCC /HPF (0-2); WBC,URINE 0 /HPF (0-4)
[2018-10-30] MEDS ORDERED: ASPIRIN CHEWABLE 81 MG TABLET. PO ONE (02:15)
[2018-10-30] MEDS ORDERED: levOFLOXacin PER PHARMACY. MC PRN (02:30)
--- NOTE | 2018-10-30 03:15 | NUR ---
PER REPORT FROM LOLIS RN PATIENT ADMITTED AT 0300 TO ROOM 262. PATIENT ALERT AND ORIENTED X 4 UPON MY ASSESSMENT POST ASSUMING CARE OF PATIENT. ASSESSMENT COMPLETED AND PATIENT ORIENTED TO ROOM, CALL LIGHT, BED AND PLAN OF CARE. PATIENT DENIES ANY COMPLAINTS AT THIS TIME. CALL LIGHT IN REACH. PATIENT INSTRUCTED TO CALL FOR ASSIST TO GET UP AND VERBALIZED UNDERSTANDING. SEE ADMISSION DOCUMENTATION/ASSESSMENT.
[2018-10-30] MEDS ORDERED: VANCOMYCIN 1.5 GM in IV NORMAL SALINE 500ML BAG 500 ML IV ONE (04:00)
--- NOTE | 2018-10-30 04:50 | NUR ---
PATIENT C/O SOA. OXYGEN SATURATION 97%ON ROOM AIR.
[2018-10-30] MEDS ORDERED: MORPHINE SULFATE 2 MG/ML VIAL. IV PRN ×2 (05:45)
--- NOTE | 2018-10-30 05:45 | NUR ---
PATIENT C/O SOA OXYGEN SATURATION 97 % ON ROOM AIR. OXYGEN AT 2 LITERS PUT ON PATIENT .
--- NOTE | 2018-10-30 05:53 | RAD ---
PORTABLE CHEST 1V Clinical Indication: Shortness of breath. Comparison: Two-view chest, October 22, 2018. Findings: There is cardiomegaly. No pulmonary vascular congestion. Mild left basilar retrocardiac airspace disease. Large right pleural effusion is unchanged. There is consolidation in the right lung base, atelectasis or pneumonia or aspiration are considerations. There is no pneumothorax. Bones appear stable. IMPRESSION: 1. Large right pleural effusion and right basilar airspace disease are unchanged. 2. Mild left basilar airspace disease. Electronically signed by: Dakota Price MD (10/30/2018 5:50 AM) [id number]
--- NOTE | 2018-10-30 05:55 | NUR ---
PATIENT C/O CHEST TIGHTNESS. B/P 181/[address] GAMEZ ORDERS RECEIVED.
[2018-10-30] MEDS: ACETAMINOPHEN 325 MG TABLET. PO PRN (05:57)
--- NOTE | 2018-10-30 06:02 | NUR ---
CALL TO MICHELLE NURSING MICROBIOLOGY LAB ANALYST REGARDING AB FRANCO. [facility] STATES TO TRANSFER PATIENT TO ROOM 114.
[2018-10-30] MEDS: VANCOMYCIN PER PHARMACY MC PRN (06:13)
--- NOTE | 2018-10-30 06:13 | NUR ---
Pharmacy Vancomycin Dosing Note S:Consulted to monitor and dose vancomycin started 10/30/18. O:FRANKIE GARCIA is a 53 year old M with Pneumonia . Height: 5 feet, 8 inches Weight: 65.279959 kg [place] Body Weight: 68.40 Adjusted Body Weight: 67.04 Dosing Weight: Actual Other Antibiotics: LEVOFLOXACIN 500 MG Q48H LABS: Last BUN: 75 Last Creatinine: 7.2 Creatinine Clearance: HD mL/min Last WBC: 5 Last Procalcitonin: Tmax (past 24 hours): Microbiology: I/O: Drug Levels: Last level: on at Last dose given 10/30/18 at 0430 Vancomycin Dosing: Loading Dose: 1500 mg x1 Dosing Weight: Actual Target Trough: 15-20 A: Based on: WT AND DIALYSIS P: 1. Begin Vancomycin 500 mg IV Dose Per Levels 2. Follow up Random level on 11/01/18 at 0500 3. Pharmacy will continue to monitor, follow and adjust therapy as needed. CLEO SAUCEDO RPH, [id number] Signed: 10/30/18 at 0614 by CLEO SAUCEDO RPH PHA
--- NOTE | 2018-10-30 06:16 | NUR ---
REPORT CALLED TO ALEXA RN IN ICU. REPORT GIVEN INCLUDING VITALS, LABS, ORDERS AND PLAN OF CARE. ALEXA DENIED ANY FURTHER QUESTIONS.
--- NOTE | 2018-10-30 06:20 | NUR ---
PATIENT TRANSFERRED TOP ROOM 114 PER BED WITH ALL BELONGINGS. PATIENT GREETED BY ALEXA AYERS AT BEDSIDE.
--- NOTE | 2018-10-30 06:45 | NUR ---
Patient transferred to room 114 via bed from at 0625, accompanied by RN and [employer]. Patient is alert/oriented x4, cooperative, but complaining of posterior BASSETT--patient had received Tylenol at 0600 and refused Morphine at 0630. Patient oriented to ICU routine, Nursing call light, TV/Bed control, Numeric pain scale, activity (BR), diet (NPO), and POC. Patient verbalized understanding of above. SBP 183 at 0635 so Cardene started at 5MG/HR, SBP decreased to 142 at 0645--will continue to monitor and titrate Cardene as needed. 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
[2018-10-30] MEDS ORDERED: ONDANSETRON PF 4 MG/2 ML VIAL. IV PRN (07:15)
[2018-10-30] MEDS ORDERED: HYDROmorphone 2 MG/ML VIAL IVP PRN (07:15)
[2018-10-30] MEDS ORDERED: DOCUSATE SODIUM 100 MG CAPSULE. PO PRN (10:15)
[2018-10-30] MEDS ORDERED: HYDROcodone/APAP 5/325MG 1 TAB TABLET PO PRN (10:15)
[2018-10-30] MEDS ORDERED: cloNIDine HCL 0.1 MG TABLET PO PRN (10:15)
--- NOTE | 2018-10-30 10:21 | PDOC ---
Provider Note Provider Note Pt seen.H&P dictated. #[id number] ROSALINO SERRANO MD Oct 30, 2018 10:21
--- NOTE | 2018-10-30 10:38 | PDOC2 ---
CONSULT Date of Consult Date of Consult DATE: 10/30/18 TIME: 10:23 Reason for Consult Reason for Consult: HTN AND ESRD Referring Physician Referring Physician: MAGGIE Identification/Chief Complaint Chief Complaint SOB Source Source: Chart review, Patient History of Present Illness Reason for Visit: THIS IS A 53 YR OLD WITH ESRD. WAS ON HD AND NOW ON PD. HAS COMPLAINTS OF SOB AND NOTED TO HAVE MALIGNANT HTN AND URGENCY CURRENTLY. HAS SOME COUGHING AND COUGHING AND SOME ORTHOPNEA BUT NO RELATED CHEST PAIN OR FEVERS. STATES THAT HE HAS BEEN TAKING HIS MEDICATIONS. HOWEVER BP HAS REMAINED HIGH ON MULTIPLE ADMITS HERE AND OP. ADMITTED TO THE ICU FOR THIS. IMAGING SHOWED RIGHT PLEURAL EFFUSION WHICH HAS BEEN RECURRENT. HX NOTABLE FOR RECURRENT ASCITES OF UNKNOWN ETIOLOGY BUT MOST LIKELY NEPHROGENIC IN NATURE. HE HAS HAD A COMPLETE W/U FOR HIS ASCITES INCLUDING FLUID CYTOLOGY, HEP STUDIES, CERULOPLASMIN ETC AND ALL NOTED TO BE NEG IN THE PAST. HIS ESRD IS DUE TO HTN AND RELATED NEPHROSCLEROSIS. LABS ARE C/W HIS ESRD STATUS Past Medical History Cardiovascular: HTN Pulmonary: Asthma CENTRAL NERVOUS SYSTEM: CVA, Periperal neuropathy GI: No pertinent hx Heme/Onc: Anemia NOS Hepatobiliary: No pertinent hx Psych: Anxiety Rheumatologic: No pertinent hx Infectious disease: No pertinent hx Renal/: Chronic renal failure Endocrine: No pertinent hx Past Surgical History Past Surgical History: Hernia Repair, Other Family History Family History: Heart Disease, Hypertension, Stroke Social History ALCOHOL: other Drugs: None Lives: with Family Current Problem List Problem List Problems Medical Problems: (1) Elevated troponin Status: Acute (2) ESRD (end stage renal disease) on dialysis Status: Acute (3) Hypertension Status: Acute Current Medications Current Medications Current Medications Nitroglycerin (Nitro-Bid Oint) 1 inch 1X ONCE TP Last administered on 10/30/18at 02:10; Start 10/30/18 at 01:15; Stop 10/30/18 at 01:16; Status DC Labetalol HCl (Normodyne Iv Push) 20 mg PRN Q2HRS PRN IVP ELEVATED BP, SEE COMMENTS Last administered on 10/30/18at 01:37; Start 10/30/18 at 01:00 Aspirin (Children'S Aspirin) 324 mg 1X ONCE PO Last administered on 10/30/18at 02:43; Start 10/30/18 at 02:15; Stop 10/30/18 at 02:16; Status DC Levofloxacin/ Dextrose (Levaquin Per Pharmacy) 1 each PRN DAILY PRN MC SEE COMMENTS; Start 10/30/18 at 02:30 Vancomycin HCl (Vanco Per Pharmacy) 1 each PRN DAILY PRN MC SEE COMMENTS Last administered on 10/30/18at 06:13; Start 10/30/18 at 02:30 Levofloxacin/ Dextrose 100 ml @ 100 mls/hr 1X ONCE IV Last administered on 10/30/18at 03:25; Start 10/30/18 at 03:00; Stop 10/30/18 at 03:59; Status DC Vancomycin HCl 1.5 gm/Sodium Chloride 500 ml @ 250 mls/hr 1X ONCE IV Last administered on 10/30/18at 04:31; Start 10/30/18 at 04:00; Stop 10/30/18 at 05:59; Status DC Acetaminophen (Tylenol) 650 mg PRN Q6HRS PRN PO MILD PAIN / TEMP Last administered on 10/30/18at 05:57; Start 10/30/18 at 05:45 Morphine Sulfate (Morphine Sulfate) 2 mg PRN Q4HRS PRN IV SEVERE PAIN 7-10 Last administered on 10/30/18at 06:58; Start 10/30/18 at 05:45 Morphine Sulfate (Morphine Sulfate) 1 mg PRN Q4HRS PRN IV MODERATE PAIN 4-6; Start 10/30/18 at 05:45 Nicardipine HCl 50 mg/Sodium Chloride 250 ml @ 0 mls/hr CONT PRN IV BLOOD PRESSURE Last administered on 10/30/18at 06:40; Start 10/30/18 at 06:00 Levofloxacin/ Dextrose 100 ml @ 100 mls/hr Q48H IV ; Start 11/01/18 at 06:00 Vancomycin HCl (Vancomycin Random Level) 1 each 1X ONCE MC ; Start 11/01/18 at 05:00; Stop 11/01/18 at 05:01 Ondansetron HCl (Zofran) 4 mg PRN Q4HRS PRN IV NAUSEA/VOMITING Last administered on 10/30/18at 07:26; Start 10/30/18 at 07:15 Hydromorphone HCl (Dilaudid) 0.5 mg PRN Q3HRS PRN IVP PAIN; Start 10/30/18 at 07:15 Lactobacillus Rhamnosus (Culturelle) 1 cap BID PO ; Start 10/30/18 at 09:00 Albuterol Sulfate (Ventolin Neb Soln) 2.5 mg PRN Q4HRS PRN NEB SHORTNESS OF BREATH; Start 10/30/18 at 10:15 Alprazolam (Xanax) 0.25 mg PRN BID PRN PO ANXIETY / AGITATION; Start 10/30/18 at 10:15 Amlodipine Besylate (Norvasc) 10 mg DAILY PO ; Start 10/30/18 at 11:00 Aspirin (Ecotrin) 325 mg DAILYWBKFT PO ; Start 10/30/18 at 11:00 Carvedilol (Coreg) 6.25 mg BIDWMEALS PO ; Start 10/30/18 at 17:00 Cetirizine HCl (ZyrTEC) 10 mg DAILY PO ; Start 10/30/18 at 11:00 Clonidine HCl (Catapres) 0.1 mg TID PO ; Start 10/30/18 at 14:00; Status UNV Clonidine HCl (Catapres) 0.1 mg BID PRN PO ELEVATED BP, SEE COMMENTS; Start 10/30/18 at 10:15; Status UNV Docusate Sodium (Colace) 100 mg DAILY PRN PO CONSTIPATION; Start 10/30/18 at 10:15; Status UNV Ferrous Sulfate (Feosol) 325 mg BIDWMEALS PO ; Start 10/30/18 at 17:00; Status UNV Furosemide (Lasix) 40 mg BID92 PO ; Start 10/30/18 at 14:00; Status UNV Acetaminophen/ Hydrocodone Bitart (Lortab 5/325) 1 tab PRN Q6HRS PRN PO PAIN; Start 10/30/18 at 10:15; Status UNV Lidocaine (Lidoderm) 1 patch DAILY TD ; Start 10/31/18 at 09:00; Status UNV Non-Formulary Medication (Calcium Carbonate/Vitamin D3 (Oyster Shell 500 Mg + Vit D Tb)) 1 tab BIDWMEALS PO ; Start 10/30/18 at 17:00; Status UNV Non-Formulary Medication (Hydralazine Hcl ) 75 mg TID PO ; Start 10/30/18 at 14:00; Status UNV Non-Formulary Medication (Polyethylene Glycol 3350 ) 17 gm DAILY PRN PO CONSTIPATION; Start 10/30/18 at 10:15; Status UNV Miscellaneous (Lidoderm Patch Removal) 1 ea QHS MC ; Start 10/30/18 at 21:00; Status UNV Active Scripts Active Clonidine Hcl 0.1 Mg Tablet 1 Tab PO BID PRN Take for systolic blood pressure over 185 and/or diastolic blood pressure over 110. Colace (Docusate Sodium) 100 Mg Capsule 100 Mg PO DAILY PRN Polyethylene Glycol 3350 17 Gm Powd.pack 17 Gm PO DAILY PRN Lidocaine PATCH (Lidocaine) 1 Each Adh..patch 1 Patch TD DAILY 30 Days Proair Hfa (Albuterol Sulfate) 8.5 Gm Hfa.aer.ad 2.5 Mg NEB PRN Q4HRS PRN 30 Days Cetirizine Hcl 10 Mg Tablet 10 Mg PO DAILY 30 Days Hydralazine Hcl 25 Mg Tablet 75 Mg PO TID 30 Days Carvedilol (Carvedilol) 6.25 Mg Tablet 6.25 Mg PO BIDWMEALS 30 Days Furosemide 40 Mg Tablet 40 Mg PO BID92 30 Days Oyster Shell 500 Mg + Vit D Tb (Calcium Carbonate/Vitamin D3) 1 Each Tablet 1 Tab PO BIDWMEALS 30 Days Alprazolam 0.25 Mg Tablet 0.25 Mg PO PRN BID PRN 10 Days Feosol (Ferrous Sulfate) 325 Mg Tablet 325 Mg PO BIDWMEALS 30 Days Aspirin Ec (Aspirin) 325 Mg Tablet. 325 Mg PO DAILYWBKFT 30 Days Reported Hydrocodone-Apap 5-325 (Hydrocodone Bit/Acetaminophen) 1 Tab Tablet 1 Tab PO PRN Q6HRS PRN Amlodipine Besylate 10 Mg Tablet 10 Mg PO DAILY Clonidine Hcl 0.1 Mg Tablet 0.1 Mg PO TID Allergies Allergies: Coded Allergies: lisinopril (Verified Allergy, Severe, Swelling, 06/03/18) I S O L A T I O N *CONTACT* (Verified Allergy, Unknown, 06/03/18) +MRSA nares 01/15/18 codeine (Verified Adverse Reaction, Mild, itching, 06/03/18) ROS General: YES: Fatigue, Malaise PSYCHOLOGICAL ROS: YES: Anxiety, Depression Eyes: Yes Decreased vision HEENT: YES: Heacaches Respiratory: YES: Cough, Orthopnea, Shortness of breath Cardiovascular: yes Orthopnea Gastrointestinal: Yes Constipation Genitourinary: YES Other (NOCTURIA) Musculoskeletal: Yes Muscular Weakness Neurological: Yes Weakness Skin: Yes Dry Skin Physical Exam General: Alert, Oriented X3, Cooperative, No acute distress, mild distress HEENT: Atraumatic, PERRLA, EOMI, Mucous membr. moist/pink Lungs: Other (DECREASED AT BASES WORSE ON THE RIGHT) Abdomen: Normal bowel sounds, Soft Extremities: No clubbing, No cyanosis Skin: No breakdown Neuro: Normal speech, Cranial nerves 3-12 NL Psych/Mental Status: Mental status NL, Mood NL MUSCULOSKELETAL: No joint tenderness, No deformity, No swelling Vitals VITALS Vital Signs Date Time Temp Pulse Resp B/P (MAP) Pulse Ox O2 Delivery O2 Flow Rate FiO2 10/30/18 10:00 58 15 149/100 (116) 98 Nasal Cannula 3.0 10/30/18 08:00 96.3 96.3 Labs Labs Laboratory Tests Test 10/30/18 00:55 10/30/18 01:40 10/30/18 04:40 10/30/18 08:50 White Blood Count 5.0 x10^3/uL (4.0-11.0) Red Blood Count 4.46 x10^6/uL (4.30-5.70) Hemoglobin 12.8 g/dL (13.0-17.5) Hematocrit 38.0 % (39.0-53.0) Mean Corpuscular Volume 85 fL (79-100) Mean Corpuscular Hemoglobin 29 pg (25-35) Mean Corpuscular Hemoglobin Concent 34 g/dL (31-37) Red Cell Distribution Width 15.7 % (11.5-14.5) Platelet Count 210 x10^3/uL (140-400) Neutrophils (%) (Auto) 65 % (31-73) Lymphocytes (%) (Auto) 18 % (24-48) Monocytes (%) (Auto) 12 % (0-9) Eosinophils (%) (Auto) 5 % (0-3) Basophils (%) (Auto) 0 % (0-3) Neutrophils # (Auto) 3.3 x10^3/uL (1.8-7.7) Lymphocytes # (Auto) 0.9 x10^3/uL (1.0-4.8) Monocytes # (Auto) 0.6 x10^3/uL (0.0-1.1) Eosinophils # (Auto) 0.2 x10^3/uL (0.0-0.7) Basophils # (Auto) 0.0 x10^3/uL (0.0-0.2) Prothrombin Time 14.3 SEC (11.7-14.0) Prothromb Time International Ratio 1.1 (0.8-1.1) Sodium Level 137 mmol/L (136-145) Potassium Level 3.7 mmol/L (3.5-5.1) Chloride Level 101 mmol/L (98-107) Carbon Dioxide Level 22 mmol/L (21-32) Anion Gap 14 (6-14) Blood Urea Nitrogen 75 mg/dL (8-26) Creatinine 7.2 mg/dL (0.7-1.3) Estimated GFR (Cockcroft-Gault) 9.7 BUN/Creatinine Ratio 10 (6-20) Glucose Level 138 mg/dL (70-99) Lactic Acid Level 0.8 mmol/L (0.4-2.0) Calcium Level 8.3 mg/dL (8.5-10.1) Magnesium Level 2.2 mg/dL (1.8-2.4) Total Bilirubin 0.6 mg/dL (0.2-1.0) Aspartate Amino Transf (AST/SGOT) 13 U/L (15-37) Alanine Aminotransferase (ALT/SGPT) 20 U/L (16-63) Alkaline Phosphatase 96 U/L (46-116) Troponin I Quantitative 0.097 ng/mL (0.000-0.055) 0.097 ng/mL (0.000-0.055) 0.079 ng/mL (0.000-0.055) VU-Obp-D-Type Natriuretic Peptide > 86813 pg/mL (0-124) Total Protein 5.9 g/dL (6.4-8.2) Albumin 2.6 g/dL (3.4-5.0) Albumin/Globulin Ratio 0.8 (1.0-1.7) Urine Collection Type Unknown Urine Color Yellow Urine Clarity Clear Urine pH 6.0 Urine Specific Currie 1.015 Urine Protein 100 mg/dL (NEG-TRACE) Urine Glucose (UA) Negative mg/dL (NEG) Urine Ketones (Stick) Negative mg/dL (NEG) Urine Blood Negative (NEG) Urine Nitrite Negative (NEG) Urine Bilirubin Negative (NEG) Urine Urobilinogen Dipstick 0.2 mg/dL (0.2 mg/dL) Urine Leukocyte Esterase Negative (NEG) Urine RBC Occ /HPF (0-2) Urine WBC 0 /HPF (0-4) Urine Squamous Epithelial Cells Few /LPF Urine Amorphous Sediment Present /HPF Urine Bacteria 0 /HPF (0-FEW) Laboratory Tests Test 10/30/18 00:55 10/30/18 01:40 10/30/18 04:40 10/30/18 08:50 White Blood Count 5.0 x10^3/uL (4.0-11.0) Red Blood Count 4.46 x10^6/uL (4.30-5.70) Hemoglobin 12.8 g/dL (13.0-17.5) Hematocrit 38.0 % (39.0-53.0) Mean Corpuscular Volume 85 fL (79-100) Mean Corpuscular Hemoglobin 29 pg (25-35) Mean Corpuscular Hemoglobin Concent 34 g/dL (31-37) Red Cell Distribution Width 15.7 % (11.5-14.5) Platelet Count 210 x10^3/uL (140-400) Neutrophils (%) (Auto) 65 % (31-73) Lymphocytes (%) (Auto) 18 % (24-48) Monocytes (%) (Auto) 12 % (0-9) Eosinophils (%) (Auto) 5 % (0-3) Basophils (%) (Auto) 0 % (0-3) Neutrophils # (Auto) 3.3 x10^3/uL (1.8-7.7) Lymphocytes # (Auto) 0.9 x10^3/uL (1.0-4.8) Monocytes # (Auto) 0.6 x10^3/uL (0.0-1.1) Eosinophils # (Auto) 0.2 x10^3/uL (0.0-0.7) Basophils # (Auto) 0.0 x10^3/uL (0.0-0.2) Prothrombin Time 14.3 SEC (11.7-14.0) Prothromb Time International Ratio 1.1 (0.8-1.1) Sodium Level 137 mmol/L (136-145) Potassium Level 3.7 mmol/L (3.5-5.1) Chloride Level 101 mmol/L (98-107) Carbon Dioxide Level 22 mmol/L (21-32) Anion Gap 14 (6-14) Blood Urea Nitrogen 75 mg/dL (8-26) Creatinine 7.2 mg/dL (0.7-1.3) Estimated GFR (Cockcroft-Gault) 9.7 BUN/Creatinine Ratio 10 (6-20) Glucose Level 138 mg/dL (70-99) Lactic Acid Level 0.8 mmol/L (0.4-2.0) Calcium Level 8.3 mg/dL (8.5-10.1) Magnesium Level 2.2 mg/dL (1.8-2.4) Total Bilirubin 0.6 mg/dL (0.2-1.0) Aspartate Amino Transf (AST/SGOT) 13 U/L (15-37) Alanine Aminotransferase (ALT/SGPT) 20 U/L (16-63) Alkaline Phosphatase 96 U/L (46-116) Troponin I Quantitative 0.097 ng/mL (0.000-0.055) 0.097 ng/mL (0.000-0.055) 0.079 ng/mL (0.000-0.055) JS-Jvg-E-Type Natriuretic Peptide > 52847 pg/mL (0-124) Total Protein 5.9 g/dL (6.4-8.2) Albumin 2.6 g/dL (3.4-5.0) Albumin/Globulin Ratio 0.8 (1.0-1.7) Urine Collection Type Unknown Urine Color Yellow Urine Clarity Clear Urine pH 6.0 Urine Specific Currie 1.015 Urine Protein 100 mg/dL (NEG-TRACE) Urine Glucose (UA) Negative mg/dL (NEG) Urine Ketones (Stick) Negative mg/dL (NEG) Urine Blood Negative (NEG) Urine Nitrite Negative (NEG) Urine Bilirubin Negative (NEG) Urine Urobilinogen Dipstick 0.2 mg/dL (0.2 mg/dL) Urine Leukocyte Esterase Negative (NEG) Urine RBC Occ /HPF (0-2) Urine WBC 0 /HPF (0-4) Urine Squamous Epithelial Cells Few /LPF Urine Amorphous Sediment Present /HPF Urine Bacteria 0 /HPF (0-FEW) Assessment/Plan Assessment/Plan IMP MALIGNANT HTN-DESPITE PT COMPLIANCE PER PT ESRD-ON PD RECURRENT LARGE RIGHT PL EFFUSION RECURRENT ASCITES-PROBABLE NEPHROGENIC INCREASED TROPONIN AND BNP-MOST LIKELY CHRONIC PLAN WILL GET RENAL ARTERIOGRAM TO RULE OUT AMANDA WILL ASK PULMONARY TO SEE REGARDING HIS PL EFFUSION-- VERY LIKELY ASCITES AND PD FLUID REFLUXING INTO THE CHEST WILL PLAN FOR AUTOMATED PD-[facility]PD THIS PM CONT CARDENE GTT AND RESUME HIS HOME MEDS OSIRIS MEADOWS MD Oct 30, 2018 10:38
[2018-10-30 10:46] LABS: TOTAL PROTEIN 5.7 g/dL (6.4-8.2)
[2018-10-30] MEDS: LIDOCAINE (700MG/PATCH) PATCH. TD SCH (11:00)
--- NOTE | 2018-10-30 11:14 | CONS ---
DATE OF CONSULTATION: PULMONARY CONSULTATION ATTENDING PHYSICIAN: Bernarda Rowan MD ESCALATION ENGINEER: Dr. Bhat HISTORY OF PRESENT ILLNESS: The patient is a 53-year-old male that we are asked to see regarding a pleural effusion. The patient has a history of end-stage renal failure. He states that he has been undergoing dialysis for approximately the past year. For the past several months, he has been having recurrent accumulations of peritoneal fluid without an obvious cause. Because of the recurrent fluid accumulation, his dialysis was switched from hemodialysis to peritoneal dialysis. He has been undergoing peritoneal dialysis, but that has not resolved his recurring peritoneal effusions. He also has had some problems with compliance and missed dialysis. The patient denies prior pulmonary problems. He does not and never did smoke tobacco, although he did grow up in a home with secondhand tobacco smoke exposure. He has not had any asbestos exposure to his knowledge. He notes that he has had some increasing shortness of breath for the past 2 weeks. This has been slowly increasing. He denies any fever. He does have a cough, but notes that it is nonproductive. He did miss a recent dialysis. PAST MEDICAL HISTORY: Significant for hypertension and renal failure. He has had back surgery. The chart notes that he has had heart disease, although he denies that he has had any heart disease. REVIEW OF SYSTEMS: A 12-point review of systems was obtained. In addition to as noted above, he complains of generalized fatigue. FAMILY HISTORY: Positive for father with lung cancer. The father was a smoker. SOCIAL HISTORY: As noted above, he does not and never did smoke tobacco. 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 PHYSICAL EXAMINATION: GENERAL: Reveals a male who is resting comfortably on oxygen. VITAL SIGNS: He is afebrile. His heart rate is 63 per minute and regular. His respiratory rate is 14 per minute and nonlabored. His blood pressure is 149/90. His oxygen saturation is 98% on 3 liters. HEENT: Unremarkable. NECK: He does have positive jugular venous distention. CHEST: He has diminished breath sounds in the right base. There are no rales, rhonchi or rubs. CARDIOVASCULAR: He has a regular rate and rhythm without murmur or gallop. ABDOMEN: He does have the peritoneal dialysis catheter in place. There is no surrounding erythema or drainage. He does have free fluid in his peritoneal cavity by exam. His abdomen is soft. Bowel sounds are present. EXTREMITIES: He does have trace pretibial edema. NEUROLOGIC: He is alert, oriented and appropriate. Cranial nerves, motor, and coordination are all grossly intact. LABORATORY DATA: A chest x-ray was obtained early this morning on the patient. He does have a significant amount of fluid in his right hemithorax. That does obscure the right border of his heart, although he probably does have an enlarged cardiovascular silhouette. Note also note that he likely does have a subpulmonic effusion on the left, although that amount of fluid, if present, is significantly smaller. The lung parenchyma does not have vascular redistribution or interstitial edema. His CBC had a white blood cell count of 5000 with a relatively unremarkable differential. His hemoglobin was 12. His troponin was low at 0.079. His BNP was markedly elevated at 35,000. His creatinine was 7.2. His glucose was 138. His albumin was 2.6. IMPRESSION: 1. Large right pleural effusion. 2. Chronic renal failure. 3. Hypertension. 4. Ascites I suspect that his pleural effusion is likely leakage of his ascites into the thoracic cavity. I do not have a high suspicion for primary pleural disease such as infection or malignancy. I also believe that pulmonary embolism is highly unlikely with this large of a pleural effusion and the patient looking reasonably well. It is possible that this is related to heart failure and a low oncotic pressure since his BNP is markedly elevated and he does have jugular venous distention. However, his x-ray is otherwise not suggestive of heart failure. PLAN: We will ask Interventional Radiology to do a diagnostic and therapeutic thoracentesis. Specifically, I am going to ask them to do cytology, cell count, glucose, LDH, total protein, Gram stain and bacterial culture, and AFB stain and culture. I also want to obtain a sample of his peritoneal fluid for analysis looking at the same studies. If the two fluids are essentially the same on analysis, I believe that would confirm that his thoracic fluid is originating in the peritoneal cavity. Additionally, I am going to order an echocardiogram. Thank you for consulting us on this nice gentleman. We will update my impression as we obtain the above results. GIOVANNA MACK MD DR: JASKARAN/savannah JOB#: [id number] / [id number] BLANQUITA
[2018-10-30] MEDS: ASPIRIN ENTERIC COATED 325 MG TABLET.DR. PO SCH (11:16)
[2018-10-30] MEDS: amLODIPine BESYLATE 10 MG TABLET PO SCH (11:17)
[2018-10-30] MEDS: LACTOBACILLUS RHAMNOSUS GG 1 CAPSULE. PO SCH ×2 (11:17→21:11)
[2018-10-30] MEDS: CETIRIZINE HCL 10 MG TABLET. PO SCH (11:17)
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
[2018-10-30] MEDS: cloNIDine HCL 0.1 MG TABLET PO SCH ×2 (14:30→21:11)
[2018-10-30] MEDS: hydrALAZINE 25 MG TABLET PO SCH ×2 (14:30→21:12)
[2018-10-30] MEDS: FUROSEMIDE 40 MG TABLET. PO SCH (14:31)
--- NOTE | 2018-10-30 14:38 | CARD ---
MR#: [id number] Date of Study: 10/30/2018 Ordering Physician: GIOVANNA MACK, Referring Physician: ROSALINO SERRANO Tech: Dory Damon RDCS APPROVED REPORT EXAM: Two-dimensional and M-mode echocardiogram with Doppler and color Doppler. INDICATION Hypertension/HCVD 2D DIMENSIONS RVDd3.9 (2.9-3.5cm)Left Atrium(2D)4.0 (1.6-4.0cm) IVSd1.6 (0.7-1.1cm)Aortic Root(2D)3.1 (2.0-3.7cm) LVDd4.5 (3.9-5.9cm)LVOT Diameter2.0 (1.8-2.4cm) PWd1.6 (0.7-1.1cm)LVDs3.4 (2.5-4.0cm) FS (%) 24.4 %SV46.0 ml LVEF(%)50.0 (>50%) Aortic Valve AoV Peak Alvaro.149.3cm/sAoV VTI26.5cm AO Peak GR.8.9mmHgLVOT VTI 20.81cm AO Mean GR.4mmHgAVA (VTI)2.40cm2 AI P 1/2 Lxtc339dh Mitral Valve MV E Doxkmudm68.1cm/sMV DECEL GRGF460ig MV A Nrhxzyyg50.4cm/sE/A Ratio0.9 TDI Lateral E' P. V3.22cm/sMedial E' P. V3.54cm/s E/Lateral E'18.0E/Medial E'16.4 Tricuspid Valve TR P. Jefpcyty076ih/sRAP MHYNWYAV1ppPy TR Peak Gr.81ktCeFVPQ92kvFm Pulmonary Vein S1 Vwpjhwab95.1cm/sS2 Irvtjqew61.46cm/s D2 Gycvdafa10.5cm/s LEFT VENTRICLE The left ventricle is normal size. There is moderate concentric left ventricular hypertrophy. Left ve ntricle systolic function is low normal. The Ejection Fraction is 50-55%. There is a flattened septum consistent with right ventricle pressure overload. Transmitral Doppler flow pattern is Grade I-abnor mal relaxation pattern. RIGHT VENTRICLE The right ventricle is mildly dilated. Systolic function is mildly reduced. ATRIA The left atrium is mildly dilated. The right atrium is moderately dilated. The interatrial septum is intact with no evidence for an atrial septal defect or patent foramen ovale as noted on 2-D or Dopple r imaging. AORTIC VALVE The aortic valve is calcified but opens well. Doppler and Color Flow revealed mild aortic regurgitati on. There is no significant aortic valvular stenosis. MITRAL VALVE The mitral valve is calcified but opens well. There is no evidence of mitral valve prolapse. There is no mitral valve stenosis. Doppler and Color-flow revealed trace mitral regurgitation. TRICUSPID VALVE The tricuspid valve is normal in structure and function. Doppler and Color Flow revealed trace tricus pid regurgitation. The PA pressure was estimated at 34 mmHg. There is no tricuspid valve stenosis. PULMONIC VALVE The pulmonary valve is normal in structure and function. Doppler and Color Flow revealed mild pulmoni c valvular regurgitation. There is no pulmonic valvular stenosis. GREAT VESSELS The aortic root is normal in size. The ascending aorta is moderately dilated at 3.8 cm. The IVC is di lated and collapses >50% with inspiration. PERICARDIAL EFFUSION There is no evidence of significant pericardial effusion. Critical Notification Critical Value: No <Conclusion> The left ventricle is normal size. Left ventricle systolic function is low normal. The Ejection Fraction is 50-55%. There is a flattened septum consistent with right ventricle pressure overload. There is moderate concentric left ventricular hypertrophy. The right ventricle is mildly dilated. There is no significant aortic valvular stenosis. Doppler and Color Flow revealed mild aortic regurgitation. Doppler and Color-flow revealed trace mitral regurgitation. Doppler and Color Flow revealed trace tricuspid regurgitation. The PA pressure was estimated at 34 mmHg. Doppler and Color Flow revealed mild pulmonic valvular regurgitation. The ascending aorta is moderately dilated at 3.8 cm. Signed by : Lukas Finley MD Electronically Approved : 10/30/2018 14:37:42
--- NOTE | 2018-10-30 15:47 | PDOC2 ---
CONSULT Date of Consult Date of Consult DATE: 10/30/18 TIME: 15:41 Reason for Consult Reason for Consult: Accelerated hypertension, elevated troponin and heart failure Referring Physician Referring Physician: Dr. Rowan Identification/Chief Complaint Chief Complaint Weakness and shortness of breath Source Source: Chart review, Patient History of Present Illness Reason for Visit: The patient is a 53-year-old male who was evaluated in the emergency room for episodes of increasing weakness and shortness of breath. Patient also had a brief episode of chest pain one to 2 days ago. He has end-stage renal disease and is on peritoneal dialysis but missed his last several dialysis time he runs. His initial workup showed minimally elevated troponins at 0.097 and 0.079 but an elevated BNP of greater than 35,000. Chest x-ray shows a large right-sided pleural effusion which was tapped on 10/03/18. Previous cardiac workup has included a Lexiscan MPI test on 04/29/17 that showed no evidence of ischemia or infarct and an ejection fraction of greater than 60%. Patient is feeling mildly improved at this time and denies chest discomfort. Past Medical History Cardiovascular: HTN Pulmonary: Asthma CENTRAL NERVOUS SYSTEM: CVA, Periperal neuropathy GI: No pertinent hx Heme/Onc: Anemia NOS Hepatobiliary: No pertinent hx Psych: Anxiety Rheumatologic: No pertinent hx Infectious disease: No pertinent hx Renal/: Chronic renal failure Endocrine: No pertinent hx Past Surgical History Past Surgical History: Hernia Repair, Other (access points for dialysis.) Family History Family History: Heart Disease, Hypertension, Stroke Social History Quit ALCOHOL: other Drugs: None Lives: with Family Current Problem List Problem List Problems Medical Problems: (1) Elevated troponin Status: Acute (2) ESRD (end stage renal disease) on dialysis Status: Acute (3) Hypertension Status: Acute Current Medications Current Medications Current Medications Nitroglycerin (Nitro-Bid Oint) 1 inch 1X ONCE TP Last administered on 10/30/18at 02:10; Start 10/30/18 at 01:15; Stop 10/30/18 at 01:16; Status DC Labetalol HCl (Normodyne Iv Push) 20 mg PRN Q2HRS PRN IVP ELEVATED BP, SEE COMMENTS Last administered on 10/30/18at 01:37; Start 10/30/18 at 01:00 Aspirin (Children'S Aspirin) 324 mg 1X ONCE PO Last administered on 10/30/18at 02:43; Start 10/30/18 at 02:15; Stop 10/30/18 at 02:16; Status DC Levofloxacin/ Dextrose (Levaquin Per Pharmacy) 1 each PRN DAILY PRN MC SEE COMMENTS; Start 10/30/18 at 02:30 Vancomycin HCl (Vanco Per Pharmacy) 1 each PRN DAILY PRN MC SEE COMMENTS Last administered on 10/30/18at 06:13; Start 10/30/18 at 02:30 Levofloxacin/ Dextrose 100 ml @ 100 mls/hr 1X ONCE IV Last administered on 10/30/18at 03:25; Start 10/30/18 at 03:00; Stop 10/30/18 at 03:59; Status DC Vancomycin HCl 1.5 gm/Sodium Chloride 500 ml @ 250 mls/hr 1X ONCE IV Last administered on 10/30/18at 04:31; Start 10/30/18 at 04:00; Stop 10/30/18 at 05:59; Status DC Acetaminophen (Tylenol) 650 mg PRN Q6HRS PRN PO MILD PAIN / TEMP Last administered on 10/30/18at 05:57; Start 10/30/18 at 05:45 Morphine Sulfate (Morphine Sulfate) 2 mg PRN Q4HRS PRN IV SEVERE PAIN 7-10 Last administered on 10/30/18at 06:58; Start 10/30/18 at 05:45 Morphine Sulfate (Morphine Sulfate) 1 mg PRN Q4HRS PRN IV MODERATE PAIN 4-6; Start 10/30/18 at 05:45 Nicardipine HCl 50 mg/Sodium Chloride 250 ml @ 0 mls/hr CONT PRN IV BLOOD PRESSURE Last administered on 10/30/18at 06:40; Start 10/30/18 at 06:00 Levofloxacin/ Dextrose 100 ml @ 100 mls/hr Q48H IV ; Start 11/01/18 at 06:00 Vancomycin HCl (Vancomycin Random Level) 1 each 1X ONCE MC ; Start 11/01/18 at 05:00; Stop 11/01/18 at 05:01 Ondansetron HCl (Zofran) 4 mg PRN Q4HRS PRN IV NAUSEA/VOMITING Last administered on 10/30/18at 07:26; Start 10/30/18 at 07:15 Hydromorphone HCl (Dilaudid) 0.5 mg PRN Q3HRS PRN IVP PAIN; Start 10/30/18 at 07:15 Lactobacillus Rhamnosus (Culturelle) 1 cap BID PO Last administered on 10/30/18at 11:17; Start 10/30/18 at 09:00 Albuterol Sulfate (Ventolin Neb Soln) 2.5 mg PRN Q4HRS PRN NEB SHORTNESS OF BREATH; Start 10/30/18 at 10:15 Alprazolam (Xanax) 0.25 mg PRN BID PRN PO ANXIETY / AGITATION; Start 10/30/18 at 10:15 Amlodipine Besylate (Norvasc) 10 mg DAILY PO Last administered on 10/30/18at 11 :17; Start 10/30/18 at 11:00 Aspirin (Ecotrin) 325 mg DAILYWBKFT PO Last administered on 10/30/18at 11:16; Start 10/30/18 at 11:00 Carvedilol (Coreg) 6.25 mg BIDWMEALS PO ; Start 10/30/18 at 17:00 Cetirizine HCl (ZyrTEC) 10 mg DAILY PO Last administered on 10/30/18at 11:17; Start 10/30/18 at 11:00 Clonidine HCl (Catapres) 0.1 mg TID PO Last administered on 10/30/18at 14:30; Start 10/30/18 at 14:00 Clonidine HCl (Catapres) 0.1 mg PRN BID PRN PO ELEVATED BP, SEE COMMENTS; Start 10/30/18 at 10:15 Docusate Sodium (Colace) 100 mg PRN DAILY PRN PO HARD STOOLS; Start 10/30/18 at 10:15 Ferrous Sulfate (Feosol) 325 mg BIDWMEALS PO ; Start 10/30/18 at 17:00 Furosemide (Lasix) 40 mg BID92 PO Last administered on 10/30/18at 14:31; Start 10/30/18 at 14:00 Acetaminophen/ Hydrocodone Bitart (Lortab 5/325) 1 tab PRN Q6HRS PRN PO PAIN MODERATE TO SEVERE; Start 10/30/18 at 10:15 Lidocaine (Lidoderm) 1 patch DAILY TD ; Start 10/30/18 at 11:00 Calcium/Vitamin D (Oscal D 500mg/ 200uts) 1 tab BIDWMEALS PO ; Start 10/30/18 at 17:00 Hydralazine HCl (Apresoline) 75 mg TID PO Last administered on 10/30/18at 14:30; Start 10/30/18 at 14:00 Polyethylene Glycol (miraLAX PACKET) 17 gm PRN DAILY PRN PO CONSTIPATION; Start 10/31/18 at 09:00 Miscellaneous (Lidoderm Patch Removal) 1 ea QHS ; Start 10/30/18 at 21:00 Active Scripts Active Clonidine Hcl 0.1 Mg Tablet 1 Tab PO BID PRN Take for systolic blood pressure over 185 and/or diastolic blood pressure over 110. Colace (Docusate Sodium) 100 Mg Capsule 100 Mg PO DAILY PRN Polyethylene Glycol 3350 17 Gm Powd.pack 17 Gm PO DAILY PRN Lidocaine PATCH (Lidocaine) 1 Each Adh..patch 1 Patch TD DAILY 30 Days Proair Hfa (Albuterol Sulfate) 8.5 Gm Hfa.aer.ad 2.5 Mg NEB PRN Q4HRS PRN 30 Days Cetirizine Hcl 10 Mg Tablet 10 Mg PO DAILY 30 Days Hydralazine Hcl 25 Mg Tablet 75 Mg PO TID 30 Days Carvedilol (Carvedilol) 6.25 Mg Tablet 6.25 Mg PO BIDWMEALS 30 Days Furosemide 40 Mg Tablet 40 Mg PO BID92 30 Days Oyster Shell 500 Mg + Vit D Tb (Calcium Carbonate/Vitamin D3) 1 Each Tablet 1 Tab PO BIDWMEALS 30 Days Alprazolam 0.25 Mg Tablet 0.25 Mg PO PRN BID PRN 10 Days Feosol (Ferrous Sulfate) 325 Mg Tablet 325 Mg PO BIDWMEALS 30 Days Aspirin Ec (Aspirin) 325 Mg Tablet. 325 Mg PO DAILYWBKFT 30 Days Reported Hydrocodone-Apap 5-325 (Hydrocodone Bit/Acetaminophen) 1 Tab Tablet 1 Tab PO PRN Q6HRS PRN Amlodipine Besylate 10 Mg Tablet 10 Mg PO DAILY Clonidine Hcl 0.1 Mg Tablet 0.1 Mg PO TID Allergies Allergies: Coded Allergies: lisinopril (Verified Allergy, Severe, Swelling, 06/03/18) I S O L A T I O N *CONTACT* (Verified Allergy, Unknown, 06/03/18) +MRSA nares 01/15/18 codeine (Verified Adverse Reaction, Mild, itching, 06/03/18) ROS General: YES: Fatigue, Malaise Respiratory: YES: SOB with excertion Physical Exam General: mild distress HEENT: Atraumatic Lungs: Other (decreased breath sounds right greater than left) Heart: Regular rate Abdomen: Normal bowel sounds Vitals VITALS Vital Signs Date Time Temp Pulse Resp B/P (MAP) Pulse Ox O2 Delivery O2 Flow Rate FiO2 10/30/18 14:30 61 147/101 10/30/18 12:00 97.5 27 98 Nasal Cannula 2.0 97.5 Labs Labs Laboratory Tests Test 10/30/18 00:55 10/30/18 01:40 10/30/18 04:40 10/30/18 08:50 White Blood Count 5.0 x10^3/uL (4.0-11.0) Red Blood Count 4.46 x10^6/uL (4.30-5.70) Hemoglobin 12.8 g/dL (13.0-17.5) Hematocrit 38.0 % (39.0-53.0) Mean Corpuscular Volume 85 fL (79-100) Mean Corpuscular Hemoglobin 29 pg (25-35) Mean Corpuscular Hemoglobin Concent 34 g/dL (31-37) Red Cell Distribution Width 15.7 % (11.5-14.5) Platelet Count 210 x10^3/uL (140-400) Neutrophils (%) (Auto) 65 % (31-73) Lymphocytes (%) (Auto) 18 % (24-48) Monocytes (%) (Auto) 12 % (0-9) Eosinophils (%) (Auto) 5 % (0-3) Basophils (%) (Auto) 0 % (0-3) Neutrophils # (Auto) 3.3 x10^3/uL (1.8-7.7) Lymphocytes # (Auto) 0.9 x10^3/uL (1.0-4.8) Monocytes # (Auto) 0.6 x10^3/uL (0.0-1.1) Eosinophils # (Auto) 0.2 x10^3/uL (0.0-0.7) Basophils # (Auto) 0.0 x10^3/uL (0.0-0.2) Prothrombin Time 14.3 SEC (11.7-14.0) Prothromb Time International Ratio 1.1 (0.8-1.1) Sodium Level 137 mmol/L (136-145) Potassium Level 3.7 mmol/L (3.5-5.1) Chloride Level 101 mmol/L (98-107) Carbon Dioxide Level 22 mmol/L (21-32) Anion Gap 14 (6-14) Blood Urea Nitrogen 75 mg/dL (8-26) Creatinine 7.2 mg/dL (0.7-1.3) Estimated GFR (Cockcroft-Gault) 9.7 BUN/Creatinine Ratio 10 (6-20) Glucose Level 138 mg/dL (70-99) Lactic Acid Level 0.8 mmol/L (0.4-2.0) Calcium Level 8.3 mg/dL (8.5-10.1) Magnesium Level 2.2 mg/dL (1.8-2.4) Total Bilirubin 0.6 mg/dL (0.2-1.0) Aspartate Amino Transf (AST/SGOT) 13 U/L (15-37) Alanine Aminotransferase (ALT/SGPT) 20 U/L (16-63) Alkaline Phosphatase 96 U/L (46-116) Troponin I Quantitative 0.097 ng/mL (0.000-0.055) 0.097 ng/mL (0.000-0.055) 0.079 ng/mL (0.000-0.055) AC-Oon-B-Type Natriuretic Peptide > 12828 pg/mL (0-124) > 65993 pg/mL (0-124) Total Protein 5.9 g/dL (6.4-8.2) 5.7 g/dL (6.4-8.2) Albumin 2.6 g/dL (3.4-5.0) Albumin/Globulin Ratio 0.8 (1.0-1.7) Urine Collection Type Unknown Urine Color Yellow Urine Clarity Clear Urine pH 6.0 Urine Specific [place] 1.015 Urine Protein 100 mg/dL (NEG-TRACE) Urine Glucose (UA) Negative mg/dL (NEG) Urine Ketones (Stick) Negative mg/dL (NEG) Urine Blood Negative (NEG) Urine Nitrite Negative (NEG) Urine Bilirubin Negative (NEG) Urine Urobilinogen Dipstick 0.2 mg/dL (0.2 mg/dL) Urine Leukocyte Esterase Negative (NEG) Urine RBC Occ /HPF (0-2) Urine WBC 0 /HPF (0-4) Urine Squamous Epithelial Cells Few /LPF Urine Amorphous Sediment Present /HPF Urine Bacteria 0 /HPF (0-FEW) Lactate Dehydrogenase 191 U/L (85-227) Laboratory Tests Test 10/30/18 00:55 10/30/18 01:40 10/30/18 04:40 10/30/18 08:50 White Blood Count 5.0 x10^3/uL (4.0-11.0) Red Blood Count 4.46 x10^6/uL (4.30-5.70) Hemoglobin 12.8 g/dL (13.0-17.5) Hematocrit 38.0 % (39.0-53.0) Mean Corpuscular Volume 85 fL (79-100) Mean Corpuscular Hemoglobin 29 pg (25-35) Mean Corpuscular Hemoglobin Concent 34 g/dL (31-37) Red Cell Distribution Width 15.7 % (11.5-14.5) Platelet Count 210 x10^3/uL (140-400) Neutrophils (%) (Auto) 65 % (31-73) Lymphocytes (%) (Auto) 18 % (24-48) Monocytes (%) (Auto) 12 % (0-9) Eosinophils (%) (Auto) 5 % (0-3) Basophils (%) (Auto) 0 % (0-3) Neutrophils # (Auto) 3.3 x10^3/uL (1.8-7.7) Lymphocytes # (Auto) 0.9 x10^3/uL (1.0-4.8) Monocytes # (Auto) 0.6 x10^3/uL (0.0-1.1) Eosinophils # (Auto) 0.2 x10^3/uL (0.0-0.7) Basophils # (Auto) 0.0 x10^3/uL (0.0-0.2) Prothrombin Time 14.3 SEC (11.7-14.0) Prothromb Time International Ratio 1.1 (0.8-1.1) Sodium Level 137 mmol/L (136-145) Potassium Level 3.7 mmol/L (3.5-5.1) Chloride Level 101 mmol/L (98-107) Carbon Dioxide Level 22 mmol/L (21-32) Anion Gap 14 (6-14) Blood Urea Nitrogen 75 mg/dL (8-26) Creatinine 7.2 mg/dL (0.7-1.3) Estimated GFR (Cockcroft-Gault) 9.7 BUN/Creatinine Ratio 10 (6-20) Glucose Level 138 mg/dL (70-99) Lactic Acid Level 0.8 mmol/L (0.4-2.0) Calcium Level 8.3 mg/dL (8.5-10.1) Magnesium Level 2.2 mg/dL (1.8-2.4) Total Bilirubin 0.6 mg/dL (0.2-1.0) Aspartate Amino Transf (AST/SGOT) 13 U/L (15-37) Alanine Aminotransferase (ALT/SGPT) 20 U/L (16-63) Alkaline Phosphatase 96 U/L (46-116) Troponin I Quantitative 0.097 ng/mL (0.000-0.055) 0.097 ng/mL (0.000-0.055) 0.079 ng/mL (0.000-0.055) XW-Quf-D-Type Natriuretic Peptide > 11672 pg/mL (0-124) > 49776 pg/mL (0-124) Total Protein 5.9 g/dL (6.4-8.2) 5.7 g/dL (6.4-8.2) Albumin 2.6 g/dL (3.4-5.0) Albumin/Globulin Ratio 0.8 (1.0-1.7) Urine Collection Type Unknown Urine Color Yellow Urine Clarity Clear Urine pH 6.0 Urine Specific [place] 1.015 Urine Protein 100 mg/dL (NEG-TRACE) Urine Glucose (UA) Negative mg/dL (NEG) Urine Ketones (Stick) Negative mg/dL (NEG) Urine Blood Negative (NEG) Urine Nitrite Negative (NEG) Urine Bilirubin Negative (NEG) Urine Urobilinogen Dipstick 0.2 mg/dL (0.2 mg/dL) Urine Leukocyte Esterase Negative (NEG) Urine RBC Occ /HPF (0-2) Urine WBC 0 /HPF (0-4) Urine Squamous Epithelial Cells Few /LPF Urine Amorphous Sediment Present /HPF Urine Bacteria 0 /HPF (0-FEW) Lactate Dehydrogenase 191 U/L (85-227) Images Images Chest x-ray with a large right pleural effusion Assessment/Plan Assessment/Plan 1. End-stage renal disease. Patient has missed several runs of peritoneal dialysis. He is being evaluated and followed by the renal service. 2. Right pleural effusion. Status post thoracentesis approximately one month ago. Being worked up by the pulmonary service. 3. Accelerated hypertension. Initially treated with Cardene drip and will adjust medications as needed. 4. Probable diastolic heart failure. We'll check echocardiogram. Fluid management as per renal. 5. History of hyperlipidemia. We'll check blood testing. Thank you for allowing us to participate in the care of your patient. IRVING GAMEZ MD Oct 30, 2018 15:47
[2018-10-30] MEDS: FERROUS SULFATE 325 MG TABLET. PO SCH (17:31)
[2018-10-30] MEDS: CALCIUM CARB/VIT D3 500/200 TABLET. PO SCH (17:31)
[2018-10-30] MEDS: CARVEDILOL 6.25 MG TABLET. PO SCH (17:32)
--- NOTE | 2018-10-30 18:06 | EKG ---
[facility] [address] [place] [address] Test Date: 2018-10-30 Test Time: 00:49:43 Pat Name: FRANKIE GARCIA Department: Room: Gender: M Sighter: : 1965 Requested By: RENO EVANS Order Number: [id number] Reading MD: Measurements Intervals [place] Rate: 78 P: 67 CT: 130 QRS: 71 QRSD: 90 T: 110 QT: 410 QTc: 471 Interpretive Statements SINUS RHYTHM INCOMPLETE RIGHT BUNDLE BRANCH BLOCK LVH WITH REPOLARIZATION ABNORMALITY ABNORMAL ECG RI6.01 Unconfirmed report No previous ECG available for comparison
[2018-10-30] MEDS: PATCH REMOVAL. MC SCH (21:00)
[2018-10-30] MEDS: ALPRAZolam 0.25 MG TABLET PO PRN (21:11)
[2018-10-31 05:17] LABS: HEMATOCRIT 38.5 % (39.0-53.0); HEMOGLOBIN 12.7 g/dL (13.0-17.5); RED BLOOD COUNT 4.49 x10^6/uL (4.30-5.70); RED CELL DISTRIBUTION WIDTH 16.2 % (11.5-14.5); WHITE BLOOD COUNT 4.1 x10^3/uL (4.0-11.0)
[2018-10-31 05:48] LABS: CALCIUM 8.1 mg/dL (8.5-10.1); CREATININE 6.9 mg/dL (0.7-1.3); GFR 10.1; POTASSIUM 3.6 mmol/L (3.5-5.1)
--- NOTE | 2018-10-31 07:28 | PDOC ---
Provider Note Provider Note IR NOTE Consulted for eval of possible renal arterial stenosis in this patient with ESRD and HTN. No adequate recent imaging available. Will obtain CTA GEOVANNI CISSE MD Oct 31, 2018 07:28
[2018-10-31 08:00] VITALS: BP 149/101
[2018-10-31] MEDS: CALCIUM CARB/VIT D3 500/200 TABLET. PO SCH ×2 (08:13→17:38)
[2018-10-31] MEDS: CARVEDILOL 6.25 MG TABLET. PO SCH ×2 (08:13→17:38)
[2018-10-31] MEDS: FERROUS SULFATE 325 MG TABLET. PO SCH ×2 (08:13→17:38)
[2018-10-31] MEDS: ASPIRIN ENTERIC COATED 325 MG TABLET.DR. PO SCH (08:13)
[2018-10-31] MEDS ORDERED: IOHEXOL 300 MG/ML 100ML VIAL. IV ONE (09:00)
[2018-10-31] MEDS ORDERED: POLYETHYLENE GLYCOL 3350 17 GM PACKET. PO PRN (09:00)
[2018-10-31] MEDS ORDERED: CONTRAST GIVEN. MC PRN (09:00)
[2018-10-31] MEDS ORDERED: IOHEXOL 350 MG/ML 100 ML VIAL. ONE (09:02)
[2018-10-31] MEDS: VANCOMYCIN PER PHARMACY MC PRN (09:29)
[2018-10-31] MEDS ORDERED: CCPD PATIENT. MC PRN (09:30)
--- NOTE | 2018-10-31 09:41 | NUR ---
IP: Pt has a hx of + mrsa screen on 10/01/18. Pt to be in contact precautions until there are 2 negative screens 7 days apart. Addendum: 10/31/18 at 0943 by CODY ALBERTO RN [place] screen is + and pt to remain in contact precautions.
--- NOTE | 2018-10-31 09:45 | PDOC ---
PROGRESS NOTES Subjective Subjective wheezy at times Objective Objective Vital Signs Date Time Temp Pulse Resp B/P (MAP) Pulse Ox O2 Delivery O2 Flow Rate FiO2 10/31/18 08:13 64 149/101 10/31/18 08:00 99.2 11 95 Nasal Cannula 2.0 99.2 Intake and Output 10/31/18 06:59 Intake Total 175 ml Output Total 600 ml Balance -425 ml Intake Oral 150 ml IV Total 25 ml Output Urine Total 600 ml Physical Exam Abdomen: Normal bowel sounds, Other (PD cathter present) Heart: Regular rate Extremities: No clubbing, No cyanosis General: mild distress HEENT: Atraumatic Lungs: Other (decreased breath sounds right greater than left) MUSCULOSKELETAL: No joint tenderness, No deformity, No swelling Neuro: Normal speech, Cranial nerves 3-12 NL Psych/Mental Status: Mental status NL, Mood NL Skin: No breakdown Diagnosis Problem List Problems Medical Problems: (1) Elevated troponin Status: Acute (2) ESRD (end stage renal disease) on dialysis Status: Acute (3) Hypertension Status: Acute (4) Pleural effusion on right Status: Acute Assessment Assessment Problems Medical Problems: (1) Elevated troponin Status: Acute (2) ESRD (end stage renal disease) on dialysis Status: Acute (3) Hypertension Status: Acute (4) Pleural effusion on right Status: Acute FINAL IMPRESSION: 1. Shortness of breath is probably secondary to right pleural effusion. 2. Accelerated hypertension. 3. End-stage renal disease, on peritoneal dialysis. 4. History of congestive heart failure.Diastolic heart failure 5. Hyperlipidemia. PLAN: spoke with renal. CTA r/o renal artery stenosis. Thoracocentesis?. ECHO 50-60 % EJF. continue PD. At this time was admit to the hospital, was started on a Cardene drip for blood pressure control. Renal is consulted. Continue peritoneal dialysis. Will also have Pulmonary consult for pleural effusions if needs to be tapped and Cardiology is consulted for cardiac workup including CHF, chest pain. Plan Plan of Care Problems Medical Problems: (1) Elevated troponin Status: Acute (2) ESRD (end stage renal disease) on dialysis Status: Acute (3) Hypertension Status: Acute (4) Pleural effusion on right Status: Acute Comment Review of Relevant I have reviewed the following items benjamin (where applicable) has been applied. Labs Laboratory Tests Test 10/31/18 04:30 White Blood Count 4.1 x10^3/uL (4.0-11.0) Red Blood Count 4.49 x10^6/uL (4.30-5.70) Hemoglobin 12.7 g/dL (13.0-17.5) Hematocrit 38.5 % (39.0-53.0) Mean Corpuscular Volume 86 fL (79-100) Mean Corpuscular Hemoglobin 28 pg (25-35) Mean Corpuscular Hemoglobin Concent 33 g/dL (31-37) Red Cell Distribution Width 16.2 % (11.5-14.5) Platelet Count 233 x10^3/uL (140-400) Sodium Level 138 mmol/L (136-145) Potassium Level 3.6 mmol/L (3.5-5.1) Chloride Level 103 mmol/L (98-107) Carbon Dioxide Level 22 mmol/L (21-32) Anion Gap 13 (6-14) Blood Urea Nitrogen 73 mg/dL (8-26) Creatinine 6.9 mg/dL (0.7-1.3) Estimated GFR (Cockcroft-Gault) 10.1 Glucose Level 104 mg/dL (70-99) Calcium Level 8.1 mg/dL (8.5-10.1) Microbiology 10/30/18 Blood Culture - Preliminary, Resulted NO GROWTH AFTER 1 DAY Medications Current Medications Acetaminophen/ Hydrocodone Bitart (Lortab 5/325) 1 tab PRN Q6HRS PRN PO PAIN MODERATE TO SEVERE; Start 10/30/18 at 10:15 Albuterol Sulfate (Ventolin Neb Soln) 2.5 mg PRN Q4HRS PRN NEB SHORTNESS OF BREATH; Start 10/30/18 at 10:15 Alprazolam (Xanax) 0.25 mg PRN BID PRN PO ANXIETY / AGITATION Last administered on 10/30/18at 21:11; Start 10/30/18 at 10:15 Amlodipine Besylate (Norvasc) 10 mg DAILY PO Last administered on 10/30/18at 11:17; Start 10/30/18 at 11:00 Aspirin (Ecotrin) 325 mg DAILYWBKFT PO Last administered on 10/31/18at 08:13; Start 10/30/18 at 11:00 Calcium/Vitamin D (Oscal D 500mg/ 200uts) 1 tab BIDWMEALS PO Last administered on 10/31/18at 08:13; Start 10/30/18 at 17:00 Carvedilol (Coreg) 6.25 mg BIDWMEALS PO Last administered on 10/31/18at 08:13; Start 10/30/18 at 17:00 Cetirizine HCl (ZyrTEC) 10 mg DAILY PO Last administered on 10/30/18at 11:17; Start 10/30/18 at 11:00 Clonidine HCl (Catapres) 0.1 mg PRN BID PRN PO ELEVATED BP, SEE COMMENTS; Start 10/30/18 at 10:15 Clonidine HCl (Catapres) 0.1 mg TID PO Last administered on 10/30/18at 21:11; Start 10/30/18 at 14:00 Docusate Sodium (Colace) 100 mg PRN DAILY PRN PO HARD STOOLS; Start 10/30/18 at 10:15 Ferrous Sulfate (Feosol) 325 mg BIDWMEALS PO Last administered on 10/31/18at 08:13; Start 10/30/18 at 17:00 Furosemide (Lasix) 40 mg BID92 PO Last administered on 10/30/18at 14:31; Start 10/30/18 at 14:00 Hydralazine HCl (Apresoline) 75 mg TID PO Last administered on 10/30/18at 21:12; Start 10/30/18 at 14:00 Info (CONTRAST GIVEN -- Rx MONITORING) 1 each PRN DAILY PRN MC SEE COMMENTS; Start 10/31/18 at 09:00; Stop 11/02/18 at 08:59 Iohexol (Omnipaque 300 Mg/ml) 85 ml 1X ONCE IV ; Start 10/31/18 at 09:00; Stop 10/31/18 at 09:01; Status DC Iohexol (Omnipaque 350 Mg/ml) 100 ml STK-MED ONCE .ROUTE ; Start 10/31/18 at 09: 02; Stop 10/31/18 at 09:03; Status DC Levofloxacin/ Dextrose 100 ml @ 100 mls/hr Q48H IV ; Start 11/01/18 at 06:00 Lidocaine (Lidoderm) 1 patch DAILY TD ; Start 10/30/18 at 11:00 Miscellaneous (Lidoderm Patch Removal) 1 ea QHS MC ; Start 10/30/18 at 21:00 Peritoneal Dialysis Solution (Continuous Cycling Peritoneal Dialysis Pt) 1 each PRN DAILY PRN MC SEE COMMENTS; Start 10/31/18 at 09:30 Polyethylene Glycol (miraLAX PACKET) 17 gm PRN DAILY PRN PO CONSTIPATION; Start 10/31/18 at 09:00 Vancomycin HCl (Vancomycin Random Level) 1 each 1X ONCE MC ; Start 11/01/18 at 05:00; Stop 11/01/18 at 05:01 Vitals/I & O Vital Sign - Last 24 Hours 10/30/18 10/30/18 10/30/18 10/30/18 10:00 11:00 11:17 12:00 Temp 97.5 97.5 Pulse 58 63 63 61 Resp 15 29 27 B/P (MAP) 149/100 (116) 148/106 (120) 148/106 147/101 (116) Pulse Ox 98 94 98 O2 Delivery Nasal Cannula Nasal Cannula Nasal Cannula O2 Flow Rate 3.0 2.0 2.0 10/30/18 10/30/18 10/30/18 10/30/18 14:30 14:30 16:00 17:32 Temp 97.8 97.8 Pulse 61 61 61 57 Resp 12 B/P (MAP) 147/101 147/101 102/73 (83) 113/84 Pulse Ox 96 O2 Delivery Nasal Cannula O2 Flow Rate 2.0 10/30/18 10/30/18 10/30/18 10/31/18 20:00 21:11 21:12 08:00 Temp 99.2 99.2 Pulse 65 64 64 Resp 11 B/P (MAP) 120/85 120/85 149/101 (117) Pulse Ox 95 O2 Delivery Nasal Cannula Nasal Cannula O2 Flow Rate 2.0 2.0 10/31/18 08:13 Pulse 64 B/P (MAP) 149/101 Intake and Output 10/30/18 10/30/18 10/31/18 14:59 22:59 06:59 Intake Total 175 ml Output Total 300 ml 300 ml Balance -125 ml -300 ml ROSALINO SERRANO MD Oct 31, 2018 09:45
--- NOTE | 2018-10-31 10:15 | PDOC ---
PULMONARY PROGRESS NOTES Subjective MILD SOA Vitals Vital Signs Date Time Temp Pulse Resp B/P (MAP) Pulse Ox O2 Delivery O2 Flow Rate FiO2 10/31/18 08:13 64 149/101 10/31/18 08:00 99.2 11 95 Nasal Cannula 2.0 99.2 General: Alert, Oriented X4 Lungs: Other (decrease right base) Cardiovascular: S1, S2 Abdomen: Soft, Other Neuro Exam: Alert Extremities: No Edema Skin: Warm Labs Laboratory Tests Test 10/30/18 00:55 10/30/18 01:40 10/30/18 04:40 10/30/18 06:50 White Blood Count 5.0 x10^3/uL (4.0-11.0) Red Blood Count 4.46 x10^6/uL (4.30-5.70) Hemoglobin 12.8 g/dL (13.0-17.5) Hematocrit 38.0 % (39.0-53.0) Mean Corpuscular Volume 85 fL (79-100) Mean Corpuscular Hemoglobin 29 pg (25-35) Mean Corpuscular Hemoglobin Concent 34 g/dL (31-37) Red Cell Distribution Width 15.7 % (11.5-14.5) Platelet Count 210 x10^3/uL (140-400) Neutrophils (%) (Auto) 65 % (31-73) Lymphocytes (%) (Auto) 18 % (24-48) Monocytes (%) (Auto) 12 % (0-9) Eosinophils (%) (Auto) 5 % (0-3) Basophils (%) (Auto) 0 % (0-3) Neutrophils # (Auto) 3.3 x10^3/uL (1.8-7.7) Lymphocytes # (Auto) 0.9 x10^3/uL (1.0-4.8) Monocytes # (Auto) 0.6 x10^3/uL (0.0-1.1) Eosinophils # (Auto) 0.2 x10^3/uL (0.0-0.7) Basophils # (Auto) 0.0 x10^3/uL (0.0-0.2) Prothrombin Time 14.3 SEC (11.7-14.0) Prothromb Time International Ratio 1.1 (0.8-1.1) Sodium Level 137 mmol/L (136-145) Potassium Level 3.7 mmol/L (3.5-5.1) Chloride Level 101 mmol/L (98-107) Carbon Dioxide Level 22 mmol/L (21-32) Anion Gap 14 (6-14) Blood Urea Nitrogen 75 mg/dL (8-26) Creatinine 7.2 mg/dL (0.7-1.3) Estimated GFR (Cockcroft-Gault) 9.7 BUN/Creatinine Ratio 10 (6-20) Glucose Level 138 mg/dL (70-99) Lactic Acid Level 0.8 mmol/L (0.4-2.0) Calcium Level 8.3 mg/dL (8.5-10.1) Magnesium Level 2.2 mg/dL (1.8-2.4) Total Bilirubin 0.6 mg/dL (0.2-1.0) Aspartate Amino Transf (AST/SGOT) 13 U/L (15-37) Alanine Aminotransferase (ALT/SGPT) 20 U/L (16-63) Alkaline Phosphatase 96 U/L (46-116) Troponin I Quantitative 0.097 ng/mL (0.000-0.055) 0.097 ng/mL (0.000-0.055) MY-Mvk-H-Type Natriuretic Peptide > 37353 pg/mL (0-124) Total Protein 5.9 g/dL (6.4-8.2) Albumin 2.6 g/dL (3.4-5.0) Albumin/Globulin Ratio 0.8 (1.0-1.7) Urine Collection Type Unknown Urine Color Yellow Urine Clarity Clear Urine pH 6.0 Urine Specific [place] 1.015 Urine Protein 100 mg/dL (NEG-TRACE) Urine Glucose (UA) Negative mg/dL (NEG) Urine Ketones (Stick) Negative mg/dL (NEG) Urine Blood Negative (NEG) Urine Nitrite Negative (NEG) Urine Bilirubin Negative (NEG) Urine Urobilinogen Dipstick 0.2 mg/dL (0.2 mg/dL) Urine Leukocyte Esterase Negative (NEG) Urine RBC Occ /HPF (0-2) Urine WBC 0 /HPF (0-4) Urine Squamous Epithelial Cells Few /LPF Urine Amorphous Sediment Present /HPF Urine Bacteria 0 /HPF (0-FEW) Nasal Screen MRSA (PCR) Positive (Negative) Test 10/30/18 08:50 10/31/18 04:30 Lactate Dehydrogenase 191 U/L (85-227) Troponin I Quantitative 0.079 ng/mL (0.000-0.055) JO-Frz-S-Type Natriuretic Peptide > 86834 pg/mL (0-124) Total Protein 5.7 g/dL (6.4-8.2) White Blood Count 4.1 x10^3/uL (4.0-11.0) Red Blood Count 4.49 x10^6/uL (4.30-5.70) Hemoglobin 12.7 g/dL (13.0-17.5) Hematocrit 38.5 % (39.0-53.0) Mean Corpuscular Volume 86 fL (79-100) Mean Corpuscular Hemoglobin 28 pg (25-35) Mean Corpuscular Hemoglobin Concent 33 g/dL (31-37) Red Cell Distribution Width 16.2 % (11.5-14.5) Platelet Count 233 x10^3/uL (140-400) Sodium Level 138 mmol/L (136-145) Potassium Level 3.6 mmol/L (3.5-5.1) Chloride Level 103 mmol/L (98-107) Carbon Dioxide Level 22 mmol/L (21-32) Anion Gap 13 (6-14) Blood Urea Nitrogen 73 mg/dL (8-26) Creatinine 6.9 mg/dL (0.7-1.3) Estimated GFR (Cockcroft-Gault) 10.1 Glucose Level 104 mg/dL (70-99) Calcium Level 8.1 mg/dL (8.5-10.1) Laboratory Tests Test 10/31/18 04:30 White Blood Count 4.1 x10^3/uL (4.0-11.0) Red Blood Count 4.49 x10^6/uL (4.30-5.70) Hemoglobin 12.7 g/dL (13.0-17.5) Hematocrit 38.5 % (39.0-53.0) Mean Corpuscular Volume 86 fL (79-100) Mean Corpuscular Hemoglobin 28 pg (25-35) Mean Corpuscular Hemoglobin Concent 33 g/dL (31-37) Red Cell Distribution Width 16.2 % (11.5-14.5) Platelet Count 233 x10^3/uL (140-400) Sodium Level 138 mmol/L (136-145) Potassium Level 3.6 mmol/L (3.5-5.1) Chloride Level 103 mmol/L (98-107) Carbon Dioxide Level 22 mmol/L (21-32) Anion Gap 13 (6-14) Blood Urea Nitrogen 73 mg/dL (8-26) Creatinine 6.9 mg/dL (0.7-1.3) Estimated GFR (Cockcroft-Gault) 10.1 Glucose Level 104 mg/dL (70-99) Calcium Level 8.1 mg/dL (8.5-10.1) Medications Active Scripts Medications Dose Route/Sig Max Daily Dose Days Date Category Dose Instructions Clonidine Hcl 0.1 Mg Tablet 1 Tab PO BID PRN 10/22/18 Rx Take for systolic blood pressure over 185 and/or diastolic blood pressure over 110. Colace (Docusate Sodium) 100 Mg Capsule 100 Mg PO DAILY PRN 10/14/18 Rx Polyethylene Glycol 3350 17 Gm Powd.pack 17 Gm PO DAILY PRN 10/14/18 Rx Hydrocodone-Apap 5-325 (Hydrocodone Bit/Acetaminophen) 1 Tab Tablet 1 Tab PO PRN Q6HRS PRN 10/12/18 Reported Lidocaine PATCH (Lidocaine) 1 Each Adh..patch 1 Patch TD DAILY 10/10/18 Rx Proair Hfa (Albuterol Sulfate) 8.5 Gm Hfa.aer.ad 2.5 Mg NEB PRN Q4HRS PRN 30 10/10/18 Rx Cetirizine Hcl 10 Mg Tablet 10 Mg PO DAILY 10/10/18 Rx Hydralazine Hcl 25 Mg Tablet 75 Mg PO TID 30 07/05/18 Rx Carvedilol (Carvedilol) 6.25 Mg Tablet 6.25 Mg PO BIDWMEALS 06/07/18 Rx Furosemide 40 Mg Tablet 40 Mg PO BID92 01/31/18 Rx Oyster Shell 500 Mg + Vit D Tb (Calcium Carbonate/Vitamin D3) 1 Each Tablet 1 Tab PO BIDWMEALS 30 01/31/18 Rx Alprazolam 0.25 Mg Tablet 0.25 Mg PO PRN BID PRN 10 01/31/18 Rx Feosol (Ferrous Sulfate) 325 Mg Tablet 325 Mg PO BIDWMEALS 30 01/31/18 Rx Amlodipine Besylate 10 Mg Tablet 10 Mg PO DAILY 01/18/18 Reported Clonidine Hcl 0.1 Mg Tablet 0.1 Mg PO TID 01/18/18 Reported Aspirin Ec (Aspirin) 325 Mg Tablet. 325 Mg PO DAILYWBKFT 30 10/25/17 Rx Impression . IMPRESSION: 1. La right pleural effusion. 2. Chronic renal failure. 3. Hypertension. 4. Ascites Plan . I suspect that his pleural effusion is likely leakage of his ascites into the thoracic cavity. I do not have a high suspicion for primary pleural disease such as infection or malignancy. I also believe that pulmonary embolism is highly unlikely with this large of a pleural effusion and the patient looking reasonably well. It is possible that this is related to heart failure and a low oncotic pressure since his BNP is markedly elevated and he does have jugular venous distention. However, his x-ray is otherwise not suggestive of heart failure. Interventional Radiology to do a diagnostic and therapeutic thoracentesis. Specifically, I am going to ask them to do cytology, cell count, glucose, LDH, total protein, Gram stain and bacterial culture, and AFB stain and culture. I also want to obtain a sample of his peritoneal fluid for analysis looking at the same studies. If the two fluids are essentially the same on analysis, I believe that would confirm that his thoracic fluid is originating in the peritoneal cavity. echocardiogram reviewed, normal EF d/w FLACO Hennessy MD Oct 31, 2018 10:15
--- NOTE | 2018-10-31 10:24 | RAD ---
Examination: CT ANGIOGRAPHY ABD AND PELVIS History: Malignant hypertension Comparison/Correlation: 10/12/2018 CT abdomen and pelvis without contrast Findings: Axial images of the abdomen and pelvis were obtained following IV contrast: To arteriographic protocol. Sagittal and coronal reformatted images were provided. MIP images provided. 3-D volume rendered imaging of the arterial structures was performed. Topogram demonstrates a large right pleural effusion with atelectasis. Right basilar atelectasis is notable. Cardiomegaly noted. Very small left pleural effusion noted. Reflux of contrast into hepatic veins is a concern for right heart insufficiency. Abdominal aortic diameter is normal. Superior mesenteric and celiac arteries are widely patent. Less than 50% stenosis of the inferior mesenteric artery origin is identified. Bilateral main renal arteries are patent. Iliac arteries are widely patent. Minimal calcific involvement of the abdominal aortic and iliac arterial vasculature noted. Small to moderate quantity of ascites is present. Large bore catheter extends from the left upper abdomen anterior right lower quadrant and upper pelvic level. Appendix is normal. Moderate quantity of stool in the colon is evident. No extraluminal gas or bowel obstruction. Small umbilical hernia contains omental fat. Urinary bladder is unremarkable. Pelvic ascites noted. Sacralized L5 hip joints are symmetric and unremarkable. Spleen is normal. Pancreas is unremarkable. Gallbladder fossa is unremarkable. Kidneys are mildly atrophic in appearance No enlarged abdominal or pelvic lymph nodes. Anasarca. Impression: Minimal arteries are widely patent. No evidence of renal arterial stenosis. No other significant abdominal arterial stenosis. Ascites. Anasarca. Large right pleural effusion. Right basilar atelectasis. Small left pleural effusion. PQRS Compliance Statement: One or more of the following individualized dose reduction techniques were utilized for this examination: 1. Automated exposure control 2. Adjustment of the mA and/or kV according to patient size 3. Use of iterative reconstruction technique Electronically signed by: Manav Luke MD (10/31/2018 10:21 AM) [id number]
[2018-10-31] MEDS: amLODIPine BESYLATE 10 MG TABLET PO SCH (10:37)
[2018-10-31] MEDS: hydrALAZINE 25 MG TABLET PO SCH ×3 (10:37→20:01)
[2018-10-31] MEDS: CETIRIZINE HCL 10 MG TABLET. PO SCH (10:38)
[2018-10-31] MEDS: cloNIDine HCL 0.1 MG TABLET PO SCH ×3 (10:38→20:01)
[2018-10-31] MEDS: FUROSEMIDE 40 MG TABLET. PO SCH ×2 (10:38→14:26)
[2018-10-31] MEDS: LACTOBACILLUS RHAMNOSUS GG 1 CAPSULE. PO SCH ×2 (10:39→20:01)
[2018-10-31] MEDS: LIDOCAINE (700MG/PATCH) PATCH. TD SCH (10:43)
--- NOTE | 2018-10-31 10:44 | PDOC ---
Renal-Progress Notes Subjective Notes Notes SOB THIS AM History of Present Illness Hx of present illness STABLE Vitals Vitals Vital Signs Date Time Temp Pulse Resp B/P (MAP) Pulse Ox O2 Delivery O2 Flow Rate FiO2 10/31/18 10:38 77 160/104 10/31/18 08:00 99.2 11 95 Nasal Cannula 2.0 99.2 Weight Weight [ ] I.O. Intake and Output Intake and Output 10/31/18 07:00 Intake Total 175 ml Output Total 600 ml Balance -425 ml Intake Oral 150 ml IV Total 25 ml Output Urine Total 600 ml Labs Labs Laboratory Tests Test 10/31/18 04:30 White Blood Count 4.1 x10^3/uL (4.0-11.0) Red Blood Count 4.49 x10^6/uL (4.30-5.70) Hemoglobin 12.7 g/dL (13.0-17.5) Hematocrit 38.5 % (39.0-53.0) Mean Corpuscular Volume 86 fL (79-100) Mean Corpuscular Hemoglobin 28 pg (25-35) Mean Corpuscular Hemoglobin Concent 33 g/dL (31-37) Red Cell Distribution Width 16.2 % (11.5-14.5) Platelet Count 233 x10^3/uL (140-400) Sodium Level 138 mmol/L (136-145) Potassium Level 3.6 mmol/L (3.5-5.1) Chloride Level 103 mmol/L (98-107) Carbon Dioxide Level 22 mmol/L (21-32) Anion Gap 13 (6-14) Blood Urea Nitrogen 73 mg/dL (8-26) Creatinine 6.9 mg/dL (0.7-1.3) Estimated GFR (Cockcroft-Gault) 10.1 Glucose Level 104 mg/dL (70-99) Calcium Level 8.1 mg/dL (8.5-10.1) Micro Micro Microbiology 10/30/18 Blood Culture - Preliminary, Resulted NO GROWTH AFTER 1 DAY Review of Systems Constitutional: yes: weakness, alert, oriented Ears/Nose/Throat: Yes: no symptom reported Eyes: Yes: no symptom reported Pulmonary: Yes dyspnea Cardiovascular: Yes orthopnea Gastrointestional: Yes: constipation Genitourinary: Yes: no symptom reported Musculoskeletal: Yes: muscle stiffness Skin: Yes no symptom reported Psychiatric/Neurological: Yes: no symptom reported Endocrine: Yes: no symptom reported Physical Exam General Appearance: no apparent distress Skin: warm Respiratory: decreased breath sounds Heart: S1S2 Abdomen: soft, bowel sounds present, distension Genitourinary: bladder flat Extremities: pulses present Neurology: alert Assessment Assessment IMP MALIGNANT HTN-DESPITE PT COMPLIANCE PER PT ESRD-ON PD RECURRENT LARGE RIGHT PL EFFUSION RECURRENT ASCITES-PROBABLE NEPHROGENIC INCREASED TROPONIN AND BNP-MOST LIKELY CHRONIC PLAN CTA TO RULE OUT AMANDA INCREASE CLONIDINE WILL ASK PULMONARY TO SEE REGARDING HIS PL EFFUSION-- VERY LIKELY ASCITES AND PD FLUID REFLUXING INTO THE CHEST WILL PLAN FOR AUTOMATED PD-CCPD THIS PM AGAIN CONT CARDENE GTT NEEDED THORACENTESIS AND PARACENTESIS TODAY OSIRIS MEADOWS MD Oct 31, 2018 10:44
--- NOTE | 2018-10-31 11:33 | PDOC ---
CARDIO Progress Notes Date and Time Date of Service 10/31/18 Time of Evaluation 1115 Subjective Subjective: No Chest Pain, Other (remains SOA) Vitals Vitals Vital Signs Date Time Temp Pulse Resp B/P (MAP) Pulse Ox O2 Delivery O2 Flow Rate FiO2 10/31/18 10:38 77 160/104 10/31/18 08:00 Nasal Cannula 2.0 10/31/18 08:00 99.2 11 95 99.2 Weight Weight [ ] Input and Output Intake and Output Intake and Output 10/31/18 06:59 Intake Total 175 ml Output Total 600 ml Balance -425 ml Intake Oral 150 ml IV Total 25 ml Output Urine Total 600 ml Laboratory Labs Laboratory Tests Test 10/31/18 04:30 White Blood Count 4.1 x10^3/uL (4.0-11.0) Red Blood Count 4.49 x10^6/uL (4.30-5.70) Hemoglobin 12.7 g/dL (13.0-17.5) Hematocrit 38.5 % (39.0-53.0) Mean Corpuscular Volume 86 fL (79-100) Mean Corpuscular Hemoglobin 28 pg (25-35) Mean Corpuscular Hemoglobin Concent 33 g/dL (31-37) Red Cell Distribution Width 16.2 % (11.5-14.5) Platelet Count 233 x10^3/uL (140-400) Sodium Level 138 mmol/L (136-145) Potassium Level 3.6 mmol/L (3.5-5.1) Chloride Level 103 mmol/L (98-107) Carbon Dioxide Level 22 mmol/L (21-32) Anion Gap 13 (6-14) Blood Urea Nitrogen 73 mg/dL (8-26) Creatinine 6.9 mg/dL (0.7-1.3) Estimated GFR (Cockcroft-Gault) 10.1 Glucose Level 104 mg/dL (70-99) Calcium Level 8.1 mg/dL (8.5-10.1) Microbiology Micro Microbiology 10/30/18 Blood Culture - Preliminary, Resulted NO GROWTH AFTER 1 DAY Review of Systems Constitutional: yes: weakness, alert, oriented Ears/Nose/Throat: Yes: no symptom reported Eyes: Yes: no symptom reported Pulmonary: Yes dyspnea Cardiovascular: Yes orthopnea Gastrointestional: Yes: constipation Genitourinary: Yes: no symptom reported Musculoskeletal: Yes: muscle stiffness Skin: Yes no symptom reported Psychiatric/Neurological: Yes: no symptom reported Endocrine: Yes: no symptom reported Physical Exam HEENT: Neck Supple W Full Motion Chest: Symmetric LUNGS: Other (diminished right side) Heart: S1S2, RRR Abdomen: Soft N/T Extremities: No Edema Neurology: alert, oriented, follow commands Assessment Assessment 1. ESRD on PD; has missed several runs of PD. As per renal 2. Large right pleural effusion; thoracentesis today 3. Accelerated hypertension; better controlled 4. Mild troponin elevation; peak 0.097. Type II, demand ischemia. Multifactorial with above culprits. Echo showed LVEF 50-55%. 5. Acute on chronic diastolic heart failure. Echo with flattened septum consistent with RV pressure overload. 6. Hyperlipidemia 7. Hx of CVA 8. Valvular disease 9. Ascites; s/p previous paracentesis Recommendations ASA Continue with home antiHTN therapy including Coreg, Norvasc, hydralazine. and clonidine. Allergy to ACEi. Monitor to assess need for therapy titration Fluid off loading as per renal Supportive care ELKIN SMITH APRN Oct 31, 2018 11:33
[2018-10-31 12:00] VITALS: BP 155/100
--- NOTE | 2018-10-31 12:19 | RAD ---
Ultrasound-guided right-sided thoracentesis 10/31/2018 12:15 PM Indication: large right pleural effusion Procedure: Informed consent was obtained. A timeout procedure was performed. Sonographic evaluation of the right chest was performed demonstrating moderate pleural effusion. The ] posterior chest was prepped and draped in sterile fashion. 1% lidocaine without epinephrine was administered for local anesthesia. Real-time ultrasonographic guidance was used in passing a 5 [employer] catheter into the right pleural space. 2.0L of serosanguineous pleural fluid was removed. Samples of fluid were sent to the lab for further evaluation per ordering physician request. The catheter was removed and pressure held to achieve hemostasis. A sterile dressing was applied. No immediate complications were identified. The patient tolerated the procedure well. Impression: Right sided ultrasound-guided thoracentesis
[2018-10-31 13:40] LABS: BF CLARITY HAZY; BF COLOR COLORLESS; BF SOURCE PERITONEAL
[2018-10-31 13:41] LABS: BF MON % 90 %; BF PMN % 10 %; BF RBC COUNT 508 /cmm (Not Established); BF WBC COUNT 74 /cmm (Not Established)
--- NOTE | 2018-10-31 13:43 | NUR ---
Communication w Dr Quigley/Perlita on am procedure. Dr Shaffer included in communication
[2018-10-31 13:46] LABS: BF CLARITY CLEAR; BF COLOR YELLOW; BF MON % 84 %; BF OTHER % 2 %; BF PMN % 14 %; BF RBC COUNT 345 /cmm (Not Established); BF SOURCE PLEURAL; BF WBC COUNT 51 /cmm (Not Established)
[2018-10-31] MEDS: ALBUTEROL SULFATE 2.5 MG/3 ML NEBU. NEB PRN (13:50)
[2018-10-31 15:29] VITALS: BP 103/70
--- NOTE | 2018-10-31 15:46 | NUR ---
SS following for discharge planning. SS reviewed pt chart. Pt is from home and is currently requiring oxygen. Pt has outpatient dialysis set up in the community. No discharge needs noted at this time. SS will continue to follow for discharge planning.
--- NOTE | 2018-10-31 16:13 | NUR ---
Transfer report per phone . Condition stable. Intermittent non productive cough unchanged after procedure. Rt at bedside w breathinsg RX. Exhausted after am activity. Slept long intervals when left undisturbed. HTN urgency abated. 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 Dialysis cart to room for this nilsa run. Condition stable
[2018-10-31 19:50] VITALS: BP 125/78
[2018-10-31] MEDS: PATCH REMOVAL. MC SCH (20:02)
[2018-10-31 23:45] VITALS: BP 124/85
[2018-11-01 02:35] VITALS: BP 142/89
--- NOTE | 2018-11-01 04:32 | NUR ---
Peritoneal dialysis stopped d/t alarm " check patient line". Called company and was instructed to stop therapy. Status prior to ending therapy was drain 4 of 4.
[2018-11-01] MEDS ORDERED: VANCOMYCIN RANDOM LEVEL. MC ONE (05:00)
[2018-11-01 06:33] LABS: HEMATOCRIT 39.2 % (39.0-53.0); HEMOGLOBIN 12.8 g/dL (13.0-17.5); RED BLOOD COUNT 4.55 x10^6/uL (4.30-5.70); RED CELL DISTRIBUTION WIDTH 15.7 % (11.5-14.5); WHITE BLOOD COUNT 3.9 x10^3/uL (4.0-11.0)
[2018-11-01 06:54] LABS: CALCIUM 7.9 mg/dL (8.5-10.1); POTASSIUM 3.4 mmol/L (3.5-5.1)
[2018-11-01 07:00] VITALS: BP 135/85
[2018-11-01] MEDS: FERROUS SULFATE 325 MG TABLET. PO SCH (08:44)
[2018-11-01] MEDS: ASPIRIN ENTERIC COATED 325 MG TABLET.DR. PO SCH (08:44)
[2018-11-01] MEDS: CARVEDILOL 6.25 MG TABLET. PO SCH (08:45)
[2018-11-01] MEDS: amLODIPine BESYLATE 10 MG TABLET PO SCH (08:45)
[2018-11-01] MEDS: cloNIDine HCL 0.1 MG TABLET PO SCH ×2 (08:45→13:38)
[2018-11-01] MEDS: FUROSEMIDE 40 MG TABLET. PO SCH ×2 (08:46→13:39)
[2018-11-01] MEDS: hydrALAZINE 25 MG TABLET PO SCH ×2 (08:46→13:39)
[2018-11-01] MEDS: CALCIUM CARB/VIT D3 500/200 TABLET. PO SCH (08:46)
[2018-11-01] MEDS: CETIRIZINE HCL 10 MG TABLET. PO SCH (08:46)
[2018-11-01] MEDS: LIDOCAINE (700MG/PATCH) PATCH. TD SCH (08:47)
[2018-11-01] MEDS: ALPRAZolam 0.25 MG TABLET PO PRN (08:50)
[2018-11-01] MEDS: LACTOBACILLUS RHAMNOSUS GG 1 CAPSULE. PO SCH (08:50)
[2018-11-01] MEDS: ALBUTEROL SULFATE 2.5 MG/3 ML NEBU. NEB PRN (08:56)
--- NOTE | 2018-11-01 09:46 | PDOC ---
PROGRESS NOTES Subjective Subjective feels better today, less sob Objective Objective Vital Signs Date Time Temp Pulse Resp B/P (MAP) Pulse Ox O2 Delivery O2 Flow Rate FiO2 11/01/18 08:56 Room Air 11/01/18 08:46 57 135/85 11/01/18 07:00 97.9 18 94 97.9 10/31/18 23:45 2.0 Intake and Output 11/01/18 07:00 Intake Total 425 ml Output Total 650 ml Balance -225 ml Intake Oral 425 ml Output Urine Total 650 ml Physical Exam Abdomen: Normal bowel sounds, Other (PD cathter present) Heart: Regular rate Extremities: No clubbing, No cyanosis General: mild distress HEENT: Atraumatic Lungs: Other (decreased breath sounds right greater than left) MUSCULOSKELETAL: No joint tenderness, No deformity, No swelling Neuro: Normal speech, Cranial nerves 3-12 NL Psych/Mental Status: Mental status NL, Mood NL Skin: No breakdown Diagnosis Problem List Problems Medical Problems: (1) Accelerated hypertension Status: Acute (2) Acute on chronic diastolic (congestive) heart failure Status: Acute (3) Ascites Status: Acute (4) Elevated troponin Status: Acute (5) ESRD (end stage renal disease) on dialysis Status: Acute (6) Hypertension Status: Acute (7) Pleural effusion on right Status: Acute Assessment Assessment Problems Medical Problems: (1) Elevated troponin Status: Acute (2) ESRD (end stage renal disease) on dialysis Status: Acute (3) Hypertension Status: Acute (4) Pleural effusion on right Status: Acute FINAL IMPRESSION: 1. Shortness of breath is probably secondary to right pleural effusion. 2. Accelerated hypertension. 3. End-stage renal disease, on peritoneal dialysis. 4. History of congestive heart failure.Diastolic heart failure 5. Hyperlipidemia. PLAN: Thoracocentesis doen 2 L drained rt side. CT abd -neg for renal artery stenosis d/c home today ECHO 50-60 % EJF. continue PD. Plan Plan of Care Problems Medical Problems: (1) Accelerated hypertension Status: Acute (2) Acute on chronic diastolic (congestive) heart failure Status: Acute (3) Ascites Status: Acute (4) Elevated troponin Status: Acute (5) ESRD (end stage renal disease) on dialysis Status: Acute (6) Hypertension Status: Acute (7) Pleural effusion on right Status: Acute Comment Review of Relevant I have reviewed the following items benjamin (where applicable) has been applied. Labs Laboratory Tests Test 10/31/18 11:15 10/31/18 11:45 11/01/18 05:00 Body Fluid Source Pleural Peritoneal Body Fluid Color Yellow Colorless Body Fluid Clarity Clear Hazy Body Fluid Nucleated Cells 51 /cmm (Not Established) 74 /cmm (Not Established) Body Fluid Mononuclear WBCs (%) 84 % 90 % Body Fluid Polymorphonuclear Cells 14 % 10 % Body Fluid Total RBCs Counted 345 /cmm (Not Established) 508 /cmm (Not Established) Body Fluid Other Cells (%) 2 % White Blood Count 3.9 x10^3/uL (4.0-11.0) Red Blood Count 4.55 x10^6/uL (4.30-5.70) Hemoglobin 12.8 g/dL (13.0-17.5) Hematocrit 39.2 % (39.0-53.0) Mean Corpuscular Volume 86 fL (79-100) Mean Corpuscular Hemoglobin 28 pg (25-35) Mean Corpuscular Hemoglobin Concent 33 g/dL (31-37) Red Cell Distribution Width 15.7 % (11.5-14.5) Platelet Count 237 x10^3/uL (140-400) Sodium Level 140 mmol/L (136-145) Potassium Level 3.4 mmol/L (3.5-5.1) Chloride Level 104 mmol/L (98-107) Carbon Dioxide Level 23 mmol/L (21-32) Anion Gap 13 (6-14) Blood Urea Nitrogen 67 mg/dL (8-26) Creatinine 7.0 mg/dL (0.7-1.3) Estimated GFR (Cockcroft-Gault) 10.0 Glucose Level 107 mg/dL (70-99) Calcium Level 7.9 mg/dL (8.5-10.1) Random Vancomycin Level 17.4 mcg/mL Microbiology 10/30/18 Blood Culture - Preliminary, Resulted NO GROWTH AFTER 2 DAYS Medications Current Medications Clonidine HCl (Catapres) 0.2 mg TID PO Last administered on 11/01/18at 08:45; Start 10/31/18 at 14:00 Levofloxacin/ Dextrose 100 ml @ 100 mls/hr Q48H IV Last administered on 11/01/18at 06:06; Start 11/01/18 at 06:00 Vancomycin HCl (Vancomycin Random Level) 1 each 1X ONCE MC Last administered on 11/01/18at 05:00; Start 11/01/18 at 05:00; Stop 11/01/18 at 05:01; Status DC Vitals/I & O Vital Sign - Last 24 Hours 10/31/18 10/31/18 10/31/18 10/31/18 10:37 10:37 10:38 12:00 Temp 98.7 98.7 Pulse 81 77 72 Resp 13 B/P (MAP) 160/104 160/104 160/104 155/100 (118) Pulse Ox 95 O2 Delivery Nasal Cannula O2 Flow Rate 2.0 10/31/18 10/31/18 10/31/18 10/31/18 13:50 14:26 14:31 15:29 Temp 96.5 96.5 Pulse 64 64 60 Resp 18 B/P (MAP) 155/100 155/100 103/70 (81) Pulse Ox 92 98 O2 Delivery Nasal Cannula Nasal Cannula O2 Flow Rate 2.0 2.0 10/31/18 10/31/18 10/31/18 10/31/18 17:38 19:50 20:00 20:01 Temp 97.5 97.5 Pulse 60 53 52 Resp 18 B/P (MAP) 103/70 125/78 (94) 125/78 Pulse Ox 98 O2 Delivery Nasal Cannula Room Air O2 Flow Rate 2.0 10/31/18 10/31/18 11/01/18 11/01/18 20:01 23:45 02:35 07:00 Temp 97.9 98.0 97.9 97.9 98.0 97.9 Pulse 52 50 52 57 Resp 18 16 18 B/P (MAP) 125/78 124/85 (98) 142/89 (106) 135/85 (102) Pulse Ox 98 94 94 O2 Delivery Nasal Cannula Room Air Room Air O2 Flow Rate 2.0 11/01/18 11/01/18 11/01/18 11/01/18 08:45 08:45 08:45 08:46 Pulse 57 57 57 57 B/P (MAP) 135/85 135/85 135/85 135/85 11/01/18 08:56 O2 Delivery Room Air Intake and Output 10/31/18 10/31/18 11/01/18 15:00 23:00 07:00 Intake Total 325 ml 100 ml Output Total 450 ml 200 ml Balance -125 ml -100 ml Nutrition Consultation Dietary Evaluation: Recommendations by RD: Increase Calorie Intake, Protein supplementation Comments: Continue w/renal diet as ordered REC Nepro BID (butter pecan) Expected Outcomes/Goals: PO intake to meet >75% est needs Malnutrition Findings: Food and Nutrition Intake (Mod: <75% est energy req 7days ROSALINO SERRANO MD Nov 01, 2018 09:46
--- NOTE | 2018-11-01 09:59 | PDOC ---
PULMONARY PROGRESS NOTES Subjective feels better s/p tap right side Vitals Vital Signs Date Time Temp Pulse Resp B/P (MAP) Pulse Ox O2 Delivery O2 Flow Rate FiO2 11/01/18 08:56 Room Air 11/01/18 08:46 57 135/85 11/01/18 07:00 97.9 18 94 97.9 10/31/18 23:45 2.0 General: Alert, Oriented X4, No acute distress Lungs: Clear Cardiovascular: S1, S2 Abdomen: Soft, Other Neuro Exam: Alert Extremities: Other (1+edema) Skin: Warm Labs Laboratory Tests Test 10/31/18 04:30 10/31/18 11:15 10/31/18 11:45 11/01/18 05:00 White Blood Count 4.1 x10^3/uL (4.0-11.0) 3.9 x10^3/uL (4.0-11.0) Red Blood Count 4.49 x10^6/uL (4.30-5.70) 4.55 x10^6/uL (4.30-5.70) Hemoglobin 12.7 g/dL (13.0-17.5) 12.8 g/dL (13.0-17.5) Hematocrit 38.5 % (39.0-53.0) 39.2 % (39.0-53.0) Mean Corpuscular Volume 86 fL (79-100) 86 fL (79-100) Mean Corpuscular Hemoglobin 28 pg (25-35) 28 pg (25-35) Mean Corpuscular Hemoglobin Concent 33 g/dL (31-37) 33 g/dL (31-37) Red Cell Distribution Width 16.2 % (11.5-14.5) 15.7 % (11.5-14.5) Platelet Count 233 x10^3/uL (140-400) 237 x10^3/uL (140-400) Sodium Level 138 mmol/L (136-145) 140 mmol/L (136-145) Potassium Level 3.6 mmol/L (3.5-5.1) 3.4 mmol/L (3.5-5.1) Chloride Level 103 mmol/L (98-107) 104 mmol/L (98-107) Carbon Dioxide Level 22 mmol/L (21-32) 23 mmol/L (21-32) Anion Gap 13 (6-14) 13 (6-14) Blood Urea Nitrogen 73 mg/dL (8-26) 67 mg/dL (8-26) Creatinine 6.9 mg/dL (0.7-1.3) 7.0 mg/dL (0.7-1.3) Estimated GFR (Cockcroft-Gault) 10.1 10.0 Glucose Level 104 mg/dL (70-99) 107 mg/dL (70-99) Calcium Level 8.1 mg/dL (8.5-10.1) 7.9 mg/dL (8.5-10.1) Body Fluid Source Pleural Peritoneal Body Fluid Color Yellow Colorless Body Fluid Clarity Clear Hazy Body Fluid Nucleated Cells 51 /cmm (Not Established) 74 /cmm (Not Established) Body Fluid Mononuclear WBCs (%) 84 % 90 % Body Fluid Polymorphonuclear Cells 14 % 10 % Body Fluid Total RBCs Counted 345 /cmm (Not Established) 508 /cmm (Not Established) Body Fluid Other Cells (%) 2 % Random Vancomycin Level 17.4 mcg/mL Laboratory Tests Test 10/31/18 11:15 10/31/18 11:45 11/01/18 05:00 Body Fluid Source Pleural Peritoneal Body Fluid Color Yellow Colorless Body Fluid Clarity Clear Hazy Body Fluid Nucleated Cells 51 /cmm (Not Established) 74 /cmm (Not Established) Body Fluid Mononuclear WBCs (%) 84 % 90 % Body Fluid Polymorphonuclear Cells 14 % 10 % Body Fluid Total RBCs Counted 345 /cmm (Not Established) 508 /cmm (Not Established) Body Fluid Other Cells (%) 2 % White Blood Count 3.9 x10^3/uL (4.0-11.0) Red Blood Count 4.55 x10^6/uL (4.30-5.70) Hemoglobin 12.8 g/dL (13.0-17.5) Hematocrit 39.2 % (39.0-53.0) Mean Corpuscular Volume 86 fL (79-100) Mean Corpuscular Hemoglobin 28 pg (25-35) Mean Corpuscular Hemoglobin Concent 33 g/dL (31-37) Red Cell Distribution Width 15.7 % (11.5-14.5) Platelet Count 237 x10^3/uL (140-400) Sodium Level 140 mmol/L (136-145) Potassium Level 3.4 mmol/L (3.5-5.1) Chloride Level 104 mmol/L (98-107) Carbon Dioxide Level 23 mmol/L (21-32) Anion Gap 13 (6-14) Blood Urea Nitrogen 67 mg/dL (8-26) Creatinine 7.0 mg/dL (0.7-1.3) Estimated GFR (Cockcroft-Gault) 10.0 Glucose Level 107 mg/dL (70-99) Calcium Level 7.9 mg/dL (8.5-10.1) Random Vancomycin Level 17.4 mcg/mL Medications Active Scripts Medications Dose Route/Sig Max Daily Dose Days Date Category Dose Instructions Clonidine Hcl 0.1 Mg Tablet 1 Tab PO BID PRN 10/22/18 Rx Take for systolic blood pressure over 185 and/or diastolic blood pressure over 110. Colace (Docusate Sodium) 100 Mg Capsule 100 Mg PO DAILY PRN 10/14/18 Rx Polyethylene Glycol 3350 17 Gm Powd.pack 17 Gm PO DAILY PRN 10/14/18 Rx Hydrocodone-Apap 5-325 (Hydrocodone Bit/Acetaminophen) 1 Tab Tablet 1 Tab PO PRN Q6HRS PRN 10/12/18 Reported Lidocaine PATCH (Lidocaine) 1 Each Adh..patch 1 Patch TD DAILY 10/10/18 Rx Proair Hfa (Albuterol Sulfate) 8.5 Gm Hfa.aer.ad 2.5 Mg NEB PRN Q4HRS PRN 10/10/18 Rx Cetirizine Hcl 10 Mg Tablet 10 Mg PO DAILY 30 10/10/18 Rx Hydralazine Hcl 25 Mg Tablet 75 Mg PO TID 07/05/18 Rx Carvedilol (Carvedilol) 6.25 Mg Tablet 6.25 Mg PO BIDWMEALS 30 06/07/18 Rx Furosemide 40 Mg Tablet 40 Mg PO BID92 01/31/18 Rx Oyster Shell 500 Mg + Vit D Tb (Calcium Carbonate/Vitamin D3) 1 Each Tablet 1 Tab PO BIDWMEALS 01/31/18 Rx Alprazolam 0.25 Mg Tablet 0.25 Mg PO PRN BID PRN 10 01/31/18 Rx Feosol (Ferrous Sulfate) 325 Mg Tablet 325 Mg PO BIDWMEALS 30 01/31/18 Rx Amlodipine Besylate 10 Mg Tablet 10 Mg PO DAILY 01/18/18 Reported Clonidine Hcl 0.1 Mg Tablet 0.1 Mg PO TID 01/18/18 Reported Aspirin Ec (Aspirin) 325 Mg Tablet. 325 Mg PO DAILYWBKFT 30 10/25/17 Rx Impression . IMPRESSION: 1. Large right pleural effusion. likely transudate 2. Chronic renal failure. 3. Hypertension. 4. Ascites Plan . I suspect that his pleural effusion is likely leakage of his ascites into the thoracic cavity. I do not have a high suspicion for primary pleural disease such as infection or malignancy. It is possible that this is related to heart failure and a low oncotic pressure since his BNP is markedly elevated and he does have jugular venous distention. However, his x-ray is otherwise not suggestive of heart failure. s/p right therapeutic thoracentesis. await analysis Pt much better. can go home echocardiogram reviewed, normal EF d/w DR Bhat and FLACO Shah MD Nov 01, 2018 09:59
[2018-11-01] MEDS: ACETAMINOPHEN 325 MG TABLET. PO PRN (10:33)
[2018-11-01 11:00] VITALS: BP 111/68
--- NOTE | 2018-11-01 11:57 | PDOC ---
Renal-Progress Notes Subjective Notes Notes NO MORE SOB History of Present Illness Hx of present illness BETTER Vitals Vitals Vital Signs Date Time Temp Pulse Resp B/P (MAP) Pulse Ox O2 Delivery O2 Flow Rate FiO2 11/01/18 11:32 18 Room Air 11/01/18 11:00 98.8 51 111/68 (82) 92 98.8 10/31/18 23:45 2.0 Weight Weight [ ] I.O. Intake and Output Intake and Output 11/01/18 06:59 Intake Total 425 ml Output Total 650 ml Balance -225 ml Intake Oral 425 ml Output Urine Total 650 ml Labs Labs Laboratory Tests Test 11/01/18 05:00 White Blood Count 3.9 x10^3/uL (4.0-11.0) Red Blood Count 4.55 x10^6/uL (4.30-5.70) Hemoglobin 12.8 g/dL (13.0-17.5) Hematocrit 39.2 % (39.0-53.0) Mean Corpuscular Volume 86 fL (79-100) Mean Corpuscular Hemoglobin 28 pg (25-35) Mean Corpuscular Hemoglobin Concent 33 g/dL (31-37) Red Cell Distribution Width 15.7 % (11.5-14.5) Platelet Count 237 x10^3/uL (140-400) Sodium Level 140 mmol/L (136-145) Potassium Level 3.4 mmol/L (3.5-5.1) Chloride Level 104 mmol/L (98-107) Carbon Dioxide Level 23 mmol/L (21-32) Anion Gap 13 (6-14) Blood Urea Nitrogen 67 mg/dL (8-26) Creatinine 7.0 mg/dL (0.7-1.3) Estimated GFR (Cockcroft-Gault) 10.0 Glucose Level 107 mg/dL (70-99) Calcium Level 7.9 mg/dL (8.5-10.1) Random Vancomycin Level 17.4 mcg/mL Micro Micro Microbiology 10/30/18 Blood Culture - Preliminary, Resulted NO GROWTH AFTER 2 DAYS Review of Systems Constitutional: yes: weakness, alert, oriented Ears/Nose/Throat: Yes: no symptom reported Eyes: Yes: no symptom reported Pulmonary: Yes dyspnea Cardiovascular: Yes orthopnea Gastrointestional: Yes: constipation Genitourinary: Yes: no symptom reported Musculoskeletal: Yes: muscle stiffness Skin: Yes no symptom reported Psychiatric/Neurological: Yes: no symptom reported Endocrine: Yes: no symptom reported Physical Exam General Appearance: no apparent distress Skin: warm Respiratory: decreased breath sounds Heart: S1S2 Abdomen: soft, bowel sounds present, distension Genitourinary: bladder flat Extremities: pulses present Neurology: alert, oriented, follow commands Assessment Assessment IMP MALIGNANT HTN-NO AMANDA NON COMPLIANCE ESRD-ON PD RECURRENT LARGE RIGHT PL EFFUSION RECURRENT ASCITES-PROBABLE NEPHROGENIC INCREASED TROPONIN AND BNP-MOST LIKELY CHRONIC PLAN D/C PLANS TODAY ENC COMPLIANCE WITH MEDS AND PD D/W ATTENDING OSIRIS MEADOWS MD Nov 01, 2018 11:57
--- NOTE | 2018-11-01 12:15 | PDOC ---
CARDIO Progress Notes Date and Time Date of Service 11/01/18 Time of Evaluation 1210 Subjective Subjective: No Chest Pain, Other (breathing improved) Vitals Vitals Vital Signs Date Time Temp Pulse Resp B/P (MAP) Pulse Ox O2 Delivery O2 Flow Rate FiO2 11/01/18 11:32 18 Room Air 11/01/18 11:00 98.8 51 111/68 (82) 92 98.8 10/31/18 23:45 2.0 Weight Weight [ ] Input and Output Intake and Output Intake and Output 11/01/18 07:00 Intake Total 425 ml Output Total 650 ml Balance -225 ml Intake Oral 425 ml Output Urine Total 650 ml Laboratory Labs Laboratory Tests Test 11/01/18 05:00 White Blood Count 3.9 x10^3/uL (4.0-11.0) Red Blood Count 4.55 x10^6/uL (4.30-5.70) Hemoglobin 12.8 g/dL (13.0-17.5) Hematocrit 39.2 % (39.0-53.0) Mean Corpuscular Volume 86 fL (79-100) Mean Corpuscular Hemoglobin 28 pg (25-35) Mean Corpuscular Hemoglobin Concent 33 g/dL (31-37) Red Cell Distribution Width 15.7 % (11.5-14.5) Platelet Count 237 x10^3/uL (140-400) Sodium Level 140 mmol/L (136-145) Potassium Level 3.4 mmol/L (3.5-5.1) Chloride Level 104 mmol/L (98-107) Carbon Dioxide Level 23 mmol/L (21-32) Anion Gap 13 (6-14) Blood Urea Nitrogen 67 mg/dL (8-26) Creatinine 7.0 mg/dL (0.7-1.3) Estimated GFR (Cockcroft-Gault) 10.0 Glucose Level 107 mg/dL (70-99) Calcium Level 7.9 mg/dL (8.5-10.1) Random Vancomycin Level 17.4 mcg/mL Microbiology Micro Microbiology 10/30/18 Blood Culture - Preliminary, Resulted NO GROWTH AFTER 2 DAYS Review of Systems Constitutional: yes: weakness, alert, oriented Ears/Nose/Throat: Yes: no symptom reported Eyes: Yes: no symptom reported Pulmonary: Yes dyspnea Cardiovascular: Yes orthopnea Gastrointestional: Yes: constipation Genitourinary: Yes: no symptom reported Musculoskeletal: Yes: muscle stiffness Skin: Yes no symptom reported Psychiatric/Neurological: Yes: no symptom reported Endocrine: Yes: no symptom reported Physical Exam HEENT: Neck Supple W Full Motion Chest: Symmetric LUNGS: Clear to Auscultation, Other Heart: S1S2, RRR Abdomen: Soft N/T Extremities: No Edema Neurology: alert, oriented, follow commands Assessment Assessment 1. ESRD on PD; has missed several runs of PD. As per renal 2. Large right pleural effusion; improved s/p thoracentesis with 2L removed 3. Accelerated hypertension; now well-controlled 4. Mild troponin elevation; peak 0.097. Type II, demand ischemia. Multifactorial with above culprits. Echo showed LVEF 50-55%. 5. Acute on chronic diastolic heart failure. Echo with flattened septum consistent with RV pressure overload. 6. Hyperlipidemia 7. Hx of CVA 8. Valvular disease 9. Ascites; s/p previous paracentesis Recommendations ASA Continue with home antiHTN therapy including Coreg, Norvasc, hydralazine. and clonidine. Allergy to ACEi. Fluid off loading as per renal Supportive care ELKIN SMITH APRN Nov 01, 2018 12:15
--- NOTE | 2018-11-01 14:00 | PDOC ---
Provider Note Provider Note Discharge summary dictated. #[id number] ROSALINO SERRANO MD Nov 01, 2018 14:00
--- NOTE | 2018-11-01 14:31 | DS ---
DATE OF DISCHARGE: 11/01/2018 ATTENDING PHYSICIAN: Bernarda Rowan MD PRIMARY PHYSICIAN: Michelle Callaway MD REASON FOR ADMISSION TO THE HOSPITAL: Accelerated hypertension, shortness of breath, end-stage renal disease on peritoneal dialysis. PROCEDURES DONE: 1. Echocardiogram. 2. CT of the abdomen and pelvis. 3. Thoracocentesis right side. COMPLICATIONS NOTED: None. HOSPITAL COURSE: The patient is a 53-year-old male with history of hypertension, renal failure on peritoneal dialysis. The patient was complaining of shortness of breath, came to the Emergency Room. EKG negative for ischemia. Chest x-ray shows right pleural effusion. The patient was seen by Pulmonology; had echocardiogram, shows diastolic dysfunction, 55% ejection fraction, LVH. The patient does peritoneal dialysis catheter dialysis at home and it was continued in the hospital, seen by Renal. The patient had a CT scan of the abdomen and pelvis, which basically shows anasarca. No renal artery stenosis. The patient had a large right pleural effusion. The patient had an ultrasound-guided thoracocentesis, 2 liters was removed more of transudative fluid. FINAL DIAGNOSES: 1. Shortness of breath secondary to right pleural effusion. 2. The patient had thoracocentesis, 2 liters of fluid was removed, transudative fluid. 3. End-stage renal disease, on peritoneal dialysis. 4. Accelerated hypertension. 5. Hyperlipidemia. DISPOSITION: Home. DISCHARGE MEDICATIONS: See MRAD for discharge medications. BERNARDA ROWAN MD DR: RENATO/nts JOB#: [id number] / [id number] MICHELLE Ferreira
[2018-11-01 15:00] VITALS: BP 112/67
--- NOTE | 2018-11-01 16:18 | NUR ---
Discharge Note: FRANKIE GARCIA [address] [place] [address] Discharge instructions and discharge home medications reviewed with Patient and a copy given. All questions have been answered and understanding verbalized. The following instructions and handouts were given: PD Discontinued IV Patient discharged to home with self care via wheelchair
--- NOTE | 2018-11-01 17:06 | PATHOLOGY ---
Note [facility] Accession Number: [id number] TESTS RESULT FLAG UNITS REF RANGE LAB Clinician Provided Cytology Information No. of containers..01 Other (Miscellaneous) Source: 01 ASCITES DIAGNOSIS: 02 ASCITES NEGATIVE FOR MALIGNANT CELLS. FOCALLY REACTIVE MESOTHELIAL CELLS AND FEW INFLAMMATORY CELLS PRESENT. THIS INTERPRETATION INCLUDES EVALUATION OF A CELL BLOCK. Signed out by: 02 Bryon Morrison MD, Pathologist NPI- [id number] Performed by: 01 Xuan Soto, Quantitative Analyst Developer ([facility]) Dakota Galdamez Quantitative Analyst Developer ([facility]) Gross description: 01 5ML, PALE YELLOW, CLEAR /LCS FLAG LEGEND: L-Low Normal,H-High Normal,LL-Alert Low,HH-Alert High <-Panic Low,>-Panic High,A-Abnormal,AA-Critical Abnormal Performed at: 01 [facility] [address] [place] [address] Eduar Espinosa MD, 02 [facility] [address] [place] [address] Bryon Morrison MD, Specimen Comment: A courtesy copy of this report has been sent to Specimen Comment: [phone], , , . Specimen Comment: A duplicate report has been generated due to demographic updates. Performed at: 01 [facility] [address], [place], [place] [id number] MD Eduar Espinosa MD Phone: [phone]
--- NOTE | 2018-11-01 17:17 | RAD ---
INDICATION: Recent thoracentesis with pleural effusion. COMPARISON: CT from one day prior FINDINGS: Single view of chest obtained. Postoperative changes to the cervical spine partially seen with fusion hardware. The cardiac silhouette is enlarged. Focal opacity at the right mid to lower lung. IMPRESSION: 1. Opacification of the right mid to lower lung which could be from a combination of effusion and airspace consolidation. Follow-up could be obtained to ensure resolution to exclude neoplastic causes. A significant pneumothorax is not seen. Electronically signed by: Rafi Melendez MD (11/01/2018 5:14 PM) [employer]
--- NOTE | 2018-11-01 18:06 | PATHOLOGY ---
Note [facility] Accession Number: [id number] TESTS RESULT FLAG UNITS REF RANGE LAB Clinician Provided Cytology Information No. of containers..01 Other (Miscellaneous) Source: RT PLEURAL FLUID DIAGNOSIS: RT PLEURAL FLUID NEGATIVE FOR MALIGNANT CELLS. MESOTHELIAL CELLS AND FEW INFLAMMATORY CELLS PRESENT. THIS INTERPRETATION INCLUDES EVALUATION OF A CELL BLOCK. Signed out by: 02 Bryon Morrison MD, Pathologist NPI- [id number] Performed by: Xuan Soto, Food And Beverage Checker ([facility]) Dakota Galdamez Food And Beverage Checker ([facility]) Gross description: 29ML, YELLOW, CLEAR /LCS FLAG LEGEND: L-Low Normal,H-High Normal,LL-Alert Low,HH-Alert High <-Panic Low,>-Panic High,A-Abnormal,AA-Critical Abnormal Performed at: [address] [place] [address] Eduar Espinosa MD, [address] [address] Bryon Morrison MD, Specimen Comment: A duplicate report has been generated due to demographic updates. Performed at: [address], [place], [place] [id number] MD Eduar Espinosa MD Phone: [phone]
== END 2018-11-01 16:19 | disposition home or self-care (01) | DRG 291 ==
LOC: ER 00:39 → 2 SOUTH 02:31 → 1 WEST ICU 06:25 → 2 NORTH 10-31 15:14
PROVIDERS: ADMIT Internal Medicine; ATTEND Internal Medicine
PROC: 3E1M39Z Irrigation of Peritoneal Cavity using Dialysate, Percutaneous Approach (ICD-10-PCS; principal; 2018-10-30)
PROC: 0W993ZZ Drainage of Right Pleural Cavity, Percutaneous Approach (ICD-10-PCS; 2018-10-31)
DX: I13.2 Hypertensive heart and chronic kidney disease with heart failure and with stage 5 chronic kidney disease, or end stage renal disease (principal); I50.33 Acute on chronic diastolic (congestive) heart failure; N18.6 End stage renal disease; I24.8 Other forms of acute ischemic heart disease; R18.8 Other ascites; J91.8 Pleural effusion in other conditions classified elsewhere; I38 Endocarditis, valve unspecified; F41.9 Anxiety disorder, unspecified; E78.5 Hyperlipidemia, unspecified; J45.909 Unspecified asthma, uncomplicated; G62.9 Polyneuropathy, unspecified; Z99.2 Dependence on renal dialysis; Z77.22 Contact with and (suspected) exposure to environmental tobacco smoke (acute) (chronic); Z91.19 Patient's noncompliance with other medical treatment and regimen; Z86.73 Personal history of transient ischemic attack (TIA), and cerebral infarction without residual deficits; Z82.3 Family history of stroke; Z80.1 Family history of malignant neoplasm of trachea, bronchus and lung; Z82.49 Family history of ischemic heart disease and other diseases of the circulatory system; Z91.15 Patient's noncompliance with renal dialysis
CPT/HCPCS: 32555; 36415; 71045; 74174; 80048; 80053; 80202; 81001; 82945; 83605; 83615; 83735; 83880; 84155; 84157; 84484; 85025; 85027; 85610; 87040; 87070; 87071; 87075; 87116; 87641; 88112; 88305; 89050; 93005; 93306; 94640; 96374; J1956; J2270; J2405; J3370; J3490; J7040; J7050; J7613; 99285-25; J7030

== ENCOUNTER 2018-11-17 00:24 | Inpatient (IN) | payer OTHER ==
[~2018-11-17] VITALS: Ht 172.7 cm; Wt 66.2 kg
[2018-11-17 01:00] LABS: BASO % 0 % (0-3); EOS # 0.2 x10^3/uL (0.0-0.7); EOS % 3 % (0-3); HEMATOCRIT 37.1 % (39.0-53.0); HEMOGLOBIN 12.3 g/dL (13.0-17.5); LYMPH # 0.6 x10^3/uL (1.0-4.8); LYMPH % 11 % (24-48); MEAN CORPUSCULAR HEMOGLOBIN 29 pg (25-35); MEAN CORPUSCULAR HGB CONC 33 g/dL (31-37); MEAN CORPUSCULAR VOLUME 86 fL (79-100); MONO # 0.6 x10^3/uL (0.0-1.1); MONO % 10 % (0-9); NEUT # 4.3 x10^3/uL (1.8-7.7); NEUT % 75 % (31-73); PLATELET COUNT 167 x10^3/uL (140-400); RED BLOOD COUNT 4.32 x10^6/uL (4.30-5.70); RED CELL DISTRIBUTION WIDTH 16.3 % (11.5-14.5); WHITE BLOOD COUNT 5.7 x10^3/uL (4.0-11.0)
[2018-11-17 01:08] LABS: CALCIUM 7.9 mg/dL (8.5-10.1); CREATININE 8.8 mg/dL (0.7-1.3); GFR 7.7; POTASSIUM 3.6 mmol/L (3.5-5.1)
[2018-11-17 01:09] LABS: PROTHROMBIN TIME PATIENT 15.5 SEC (11.7-14.0)
[2018-11-17 01:14] LABS: TOTAL BILIRUBIN 0.8 mg/dL (0.2-1.0)
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
[2018-11-17] MEDS ORDERED: hydrALAZINE 20 MG/ML VIAL. IVP ONE (02:00)
[2018-11-17 02:29] LABS: BILIRUBIN,URINE NEGATIVE (NEG); CLARITY,URINE CLEAR; COLOR,URINE YELLOW; NITRITE,URINE NEGATIVE (NEG); PH,URINE 5.5; PROTEIN,URINE >=300 mg/dL (NEG-TRACE); UROBILINOGEN,URINE 0.2 mg/dL (0.2 mg/dL)
[2018-11-17 02:35] LABS: BARBITURATES NEG (NEG); BENZODIAZEPINES NEG (NEG); CANNABINOIDS NEG (NEG); COCAINE NEG (NEG); METHADONE NEG (NEG); OPIATES NEG (NEG); PHENCYCLIDINE NEG (NEG)
[2018-11-17 02:37] LABS: BACTERIA,URINE 0 /HPF (0-FEW); RBC,URINE OCC /HPF (0-2); SQUAMOUS EPITHELIAL CELL,UR OCC /LPF; WBC,URINE OCC /HPF (0-4)
[2018-11-17 02:38] LABS: HYALINE CASTS, URINE OCCASIONAL /HPF
[2018-11-17 02:39] LABS: AMPHETAMINE/METHAMPHETAMINE NEG (NEG)
[2018-11-17] MEDS ORDERED: ALPRAZolam 0.25 MG TABLET PO ONE (02:45)
[2018-11-17] MEDS ORDERED: cloNIDine HCL 0.1 MG TABLET PO ONE (03:15)
[2018-11-17] MEDS ORDERED: hydrALAZINE 20 MG/ML VIAL. IVP PRN ×2 (05:45→17:15)
[2018-11-17 07:00] VITALS: BP 188/131
--- NOTE | 2018-11-17 07:23 | EKG ---
[facility] [address] [place] [address] Test Date: 2018-11-17 Test Time: 01:03:21 Pat Name: FRANKIE GARCIA Department: Room: Gender: M Director [employer]: : 1965 Requested By: MARIA ELENA FERGUSON Order Number: [id number] Reading MD: Measurements Intervals [place] Rate: 73 P: 66 W[place]: 150 QRS: 56 QRSD: 96 T: 70 QT: 448 QTc: 498 Interpretive Statements SINUS RHYTHM PROLONGED QT NO SPECIFIC ECG ABNORMALITIES RI6.01 Unconfirmed report No previous ECG available for comparison
--- NOTE | 2018-11-17 08:06 | RAD ---
Examination: PORTABLE CHEST 1V History: Missed dialysis Comparison/Correlation: 11/01/2018 AP view of the chest Findings: Portable upright frontal view chest was obtained. Postoperative cervical spine fusion is partially seen. Cardiomegaly is present. Moderate-sized right pleural effusion and adjacent consolidation which may represent atelectasis are noted. Minimal atelectasis at the left lung base is suggested but aeration is improved compared to prior exam. Mild pulmonary vasculature congestion is seen. No pneumothorax. Tubing overlies the left midabdomen. Impression: Right basilar pleural effusion and consolidation. Minimal left basilar atelectasis suggested. Cardiomegaly. Electronically signed by: Manav Luke MD (11/17/2018 8:03 AM) [facility]
[2018-11-17 09:13] VITALS: BP 152/105
--- NOTE | 2018-11-17 09:26 | NUR ---
IP: Pt has a hx of + mrsa screen since 01/2018 with most recent on 10/30/18. Pt to be in contact precautions until there are 2 negative screens 7 days apart.
[2018-11-17] MEDS ORDERED: ALBUTEROL SULFATE 2.5 MG/3 ML NEBU. NEB ONE (09:30)
--- NOTE | 2018-11-17 10:28 | PDOC ---
Provider Note Provider Note Pt seen ,H&P dictated.#[id number] ROSALINO SERRANO MD Nov 17, 2018 10:28
[2018-11-17] MEDS ORDERED: cloNIDine HCL 0.1 MG TABLET PO PRN (10:30)
[2018-11-17] MEDS ORDERED: POLYETHYLENE GLYCOL 3350 17 GM PACKET. PO PRN (10:30)
[2018-11-17] MEDS ORDERED: DOCUSATE SODIUM 100 MG CAPSULE. PO PRN (10:30)
[2018-11-17] MEDS ORDERED: ALBUTEROL SULFATE 2.5 MG/3 ML NEBU. NEB PRN (10:30)
[2018-11-17 11:00] VITALS: BP 175/123
[2018-11-17] MEDS ORDERED: CETIRIZINE HCL 10 MG TABLET. PO SCH (11:00)
[2018-11-17] MEDS ORDERED: amLODIPine BESYLATE 10 MG TABLET PO SCH (11:00)
[2018-11-17] MEDS ORDERED: cloNIDine HCL 0.1 MG TABLET PO SCH (11:00)
[2018-11-17] MEDS ORDERED: hydrALAZINE 25 MG TABLET PO SCH (11:00)
[2018-11-17] MEDS ORDERED: LIDOCAINE (700MG/PATCH) PATCH. TD SCH (11:00)
[2018-11-17] MEDS ORDERED: ASPIRIN ENTERIC COATED 325 MG TABLET.DR. PO SCH (11:00)
[2018-11-17] MEDS: CARVEDILOL 6.25 MG TABLET. PO SCH ×2 (11:00→16:24)
[2018-11-17] MEDS: CALCIUM CARB/VIT D3 500/200 TABLET. PO SCH ×2 (11:00→16:24)
[2018-11-17] MEDS: FUROSEMIDE 40 MG TABLET. PO SCH ×2 (11:00→14:00)
[2018-11-17] MEDS ORDERED: HEPARIN for SUB-Q USE 5,000 UNIT/ML VIAL. SQ SCH (11:00)
[2018-11-17] MEDS: FERROUS SULFATE 325 MG TABLET. PO SCH ×2 (11:00→16:24)
--- NOTE | 2018-11-17 11:53 | PDOC2 ---
ELKIN SMITH MICROBIOLOGICAL LABORATORY TECHNICIAN 11/17/18 1153: CARDIAC CONSULT DATE OF CONSULT Date of Consult DATE: 11/17/18 TIME: 11:44 REASON FOR CONSULT Reason for Consult: Elevated troponin REFERRING PHYSICIAN Referring Physician: Dr. Rowan SOURCE Source: Chart review, Patient HISTORY OF PRESENT ILLNESS HISTORY OF PRESENT ILLNESS This is a 53 yo male who presented secondary to leg swelling and fluid accumulation. Missed the last 2 days of PD runs. No has fluid accumulation in his bilateral LE and abdomen and feels short of breath. Blood pressure significantly elevated upon arrival. Report compliance with his meds mostly. Forgets sometimes, but did take yesterday morning. Denies any chest pain, dizziness, diaphoresis, or nausea/vomiting. PAST MEDICAL HISTORY Past Medical History Cardiovascular: HTN Pulmonary: Asthma CENTRAL NERVOUS SYSTEM: CVA, Periperal neuropathy GI: No pertinent hx Heme/Onc: Anemia NOS Hepatobiliary: No pertinent hx Psych: Anxiety Musculoskeletal: Osteoarthritis Rheumatologic: No pertinent hx Infectious disease: No pertinent hx ENT: No pertinent hx Renal/: Chronic renal failure (ESRD on HD) Endocrine: No pertinent hx Dermatology: No pertinent hx PAST SURGICAL HISTORY Past Surgical History Other (lumbar fusion, L dialysis fistula placement, corneal transplant) FAMILY HISTORY Family History: Heart Disease, Hypertension, Stroke SOCIAL HISTORY Social History Social History Smoke: No ALCOHOL: none Drugs: None Lives: with Family CURRENT MEDICATIONS CURRENT MEDICATIONS Current Medications Medications (Trade) Dose Ordered Sig/Sascha Route PRN Reason Start Time Stop Time Status Last Admin Dose Admin Hydralazine HCl (Apresoline Inj) 20 mg 1X ONCE IVP 11/17/18 02:00 11/17/18 02:02 DC 11/17/18 02:08 Alprazolam (Xanax) 0.25 mg 1X ONCE PO 11/17/18 02:45 11/17/18 02:46 DC 11/17/18 02:54 Clonidine HCl (Catapres) 0.2 mg 1X ONCE PO 11/17/18 03:15 11/17/18 03:16 DC 11/17/18 03:52 Hydralazine HCl (Apresoline Inj) 10 mg PRN Q4HRS PRN IVP ELEVATED BP, SEE COMMENTS 11/17/18 05:45 11/17/18 07:26 Albuterol Sulfate (Ventolin Neb Soln) 2.5 mg 1X ONCE NEB 11/17/18 09:30 11/17/18 09:31 DC 11/17/18 09:27 ALLERGIES ALLERGIES: Coded Allergies: lisinopril (Verified Allergy, Severe, Swelling, 06/03/18) I S O L A T I O N *CONTACT* (Verified Allergy, Unknown, 06/03/18) +MRSA nares 01/15/18 codeine (Verified Adverse Reaction, Mild, itching, 06/03/18) ROS Review of System 14 point ROS conducted with pertinent positives noted above in HPI. PHYSICAL EXAM PHYSICAL EXAM General: Alert, Oriented X3, Cooperative, No acute distress HEENT: Atraumatic, Mucous membr. moist/pink Lungs: diminished, bibasilar crackles Heart: Regular rate (SR), Normal S1, Normal S2, Other (3/6 systolic murmur to LLS border) Abdomen: ascites Extremities: No cyanosis, 2+ bilateral LE edema Skin: No breakdown, No significant lesion Neuro: Normal speech, Sensation intact Psych/Mental Status: Mental status NL, Mood NL MUSCULOSKELETAL: Osteoarthritic changes both hands VITALS/I&O VITALS/I&O: Vital Signs Date Time Temp Pulse Resp B/P (MAP) Pulse Ox O2 Delivery O2 Flow Rate FiO2 11/17/18 11:00 97.8 63 18 175/123 (140) 100 Nasal Cannula 2.0 97.8 LABS Lab: Laboratory Tests Test 11/17/18 00:40 11/17/18 02:20 11/17/18 05:14 11/17/18 07:14 White Blood Count 5.7 x10^3/uL (4.0-11.0) Red Blood Count 4.32 x10^6/uL (4.30-5.70) Hemoglobin 12.3 g/dL (13.0-17.5) L Hematocrit 37.1 % (39.0-53.0) L Mean Corpuscular Volume 86 fL (79-100) Mean Corpuscular Hemoglobin 29 pg (25-35) Mean Corpuscular Hemoglobin Concent 33 g/dL (31-37) Red Cell Distribution Width 16.3 % (11.5-14.5) H Platelet Count 167 x10^3/uL (140-400) Neutrophils (%) (Auto) 75 % (31-73) H Lymphocytes (%) (Auto) 11 % (24-48) L Monocytes (%) (Auto) 10 % (0-9) H Eosinophils (%) (Auto) 3 % (0-3) Basophils (%) (Auto) 0 % (0-3) Neutrophils # (Auto) 4.3 x10^3/uL (1.8-7.7) Lymphocytes # (Auto) 0.6 x10^3/uL (1.0-4.8) L Monocytes # (Auto) 0.6 x10^3/uL (0.0-1.1) Eosinophils # (Auto) 0.2 x10^3/uL (0.0-0.7) Basophils # (Auto) 0.0 x10^3/uL (0.0-0.2) Prothrombin Time 15.5 SEC (11.7-14.0) H Prothrombin Time INR 1.3 (0.8-1.1) H Activated Partial Thromboplast Time 33 SEC (24-38) Sodium Level 137 mmol/L (136-145) Potassium Level 3.6 mmol/L (3.5-5.1) Chloride Level 101 mmol/L (98-107) Carbon Dioxide Level 19 mmol/L (21-32) L Anion Gap 17 (6-14) H Blood Urea Nitrogen 95 mg/dL (8-26) H Creatinine 8.8 mg/dL (0.7-1.3) H Estimated GFR (Cockcroft-Gault) 7.7 BUN/Creatinine Ratio 11 (6-20) Glucose Level 171 mg/dL (70-99) H Calcium Level 7.9 mg/dL (8.5-10.1) L Total Bilirubin 0.8 mg/dL (0.2-1.0) Aspartate Amino Transferase (AST) 26 U/L (15-37) Alanine Aminotransferase (ALT) 25 U/L (16-63) Alkaline Phosphatase 120 U/L (46-116) H Troponin I Quantitative 0.167 ng/mL (0.000-0.055) 0.137 ng/mL (0.000-0.055) RT-Bht-P-Type Natriuretic Peptide > 98429 pg/mL (0-124) H Total Protein 6.0 g/dL (6.4-8.2) L Albumin 3.0 g/dL (3.4-5.0) L Albumin/Globulin Ratio 1.0 (1.0-1.7) Urine Collection Type Unknown Urine Color Yellow Urine Clarity Clear Urine pH 5.5 Urine Specific [place] 1.015 Urine Protein >=300 mg/dL (NEG-TRACE) Urine Glucose (UA) Negative mg/dL (NEG) Urine Ketones (Stick) Negative mg/dL (NEG) Urine Blood Small (NEG) Urine Nitrite Negative (NEG) Urine Bilirubin Negative (NEG) Urine Urobilinogen Dipstick 0.2 mg/dL (0.2 mg/dL) Urine Leukocyte Esterase Negative (NEG) Urine RBC Occ /HPF (0-2) Urine WBC Occ /HPF (0-4) Urine Squamous Epithelial Cells Occ /LPF Urine Bacteria 0 /HPF (0-FEW) Urine Hyaline Casts Occasional /HPF Urine Mucus Slight /LPF Urine Opiates Screen Neg (NEG) Urine Methadone Screen Neg (NEG) Urine Barbiturates Neg (NEG) Urine Phencyclidine Screen Neg (NEG) Urine Amphetamine/Methamphetamine Neg (NEG) Urine Benzodiazepines Screen Neg (NEG) Urine Cocaine Screen Neg (NEG) Urine Cannabinoids Screen Neg (NEG) Urine Ethyl Alcohol Neg (NEG) Glucose (Fingerstick) 92 mg/dL (70-99) Test 11/17/18 08:00 11/17/18 11:02 Troponin I Quantitative 0.114 ng/mL (0.000-0.055) Glucose (Fingerstick) 114 mg/dL (70-99) H Laboratory Tests 11/17/18 00:40 Laboratory Tests 11/17/18 00:40 ECHOCARDIOGRAM ECHOCARDIOGRAM <Conclusion> The left ventricular systolic function is normal. The Ejection Fraction is 50-55%. There is normal LV segmental wall motion. There is severe concentric left ventricular hypertrophy. Transmitral Doppler flow pattern is Grade II-pseudonormal filling dynamics. Mild aortic regurgitation. Trace mitral regurgitation. Trace to mild tricuspid regurgitation. There is a small pericardial effusion. DATE: 05/26/181652 <Conclusion> The left ventricle is normal size. Left ventricle systolic function is low normal. The Ejection Fraction is 50-55%. There is a flattened septum consistent with right ventricle pressure overload. There is moderate concentric left ventricular hypertrophy. The right ventricle is mildly dilated. There is no significant aortic valvular stenosis. Doppler and Color Flow revealed mild aortic regurgitation. Doppler and Color-flow revealed trace mitral regurgitation. Doppler and Color Flow revealed trace tricuspid regurgitation. The PA pressure was estimated at 34 mmHg. Doppler and Color Flow revealed mild pulmonic valvular regurgitation. The ascending aorta is moderately dilated at 3.8 cm. DATE: 10/30/18 1437 STRESS TEST STRESS TEST Conclusion 1. No evidence of EKG changes with stress testing. 2. Normal perfusion at stress/rest. 3. Low risk study. 4. EF > 60%. DATE: 04/29/17 1352 HEART CATH HEART CATH CORONARY ANGIOGRAPHY: LM is a large caliber vessel with normal angiographic appearance. LAD is a large caliber vessel with normal angiographic appearance. Ramus is a moderate caliber vessel with normal angiographic appearance. LCx is a moderate caliber non-dominant vessel with normal angiographic appear ance. OM1 is a moderate caliber vessel with normal angiographic appearance. RCA is a large caliber dominant vessel with normal angiographic appearance. RPDA is a moderate caliber vessels with normal angiographic appearance. Conclusion 1. No significant obstructive coronary artery disease. 2. Elevated left sided filling pressures. Recommendations Aggressive Medical Therapy DATE: 05/10/17 1447 ASSESSMENT/PLAN ASSESSMENT/PLAN 1. Malignant HTN; remains mild elevated 2. Mild troponin elevation; peak 0.167. Most probably type II, demand ischemia in the setting of uncontrolled hypertension and renal failure. Cath 04/29 without significant obstructive disease as noted above. Echo revealed preserved LV systolic function with an EF of 50-55% along with moderate LVH. RV with mild- moderated hypertrophy. Has outpatient MPI schedule for 11/28/18. 3. Dyspnea secondary to acute on chronic diastolic HF; induced by uncontrolled hypertension and missed PD 4. ESRD; recently transitioned to PD due to pain in the fistula during HD. Has missed last 2 days of PD 5. Hx of CVA 6. Ascites; s/p previous paracentesis Recommendations ASA Continue with home antiHTN therapy including Coreg, Norvasc, hydralazine. and clonidine. Allergy to ACEi. Monitor to assess need for therapy titration. PRN hydralazine IV Fluid off loading via HD PRN Outpatient MPI as previously scheduled. Supportive care ANA HOOKER MD 11/17/181937: CARDIAC CONSULT ASSESSMENT/PLAN ASSESSMENT/PLAN Patient seen and examined. Agree with CLEANER AND DYER's assessment and plan, Continue fluid removal for acute on chronic diastolic HF with HD per nephrology team Recent echo showed normal LVF Change BB to labetalol for better BP control Slight trop elevation demand ischemia. Plan outpatient ischemic evaluation Thank you for your consultation ELKIN SMITH APRN Nov 17, 2018 11:53 ANA HOOKER MD Nov 17, 2018 19:38
--- NOTE | 2018-11-17 12:20 | RAD ---
EXAM: Head CT without contrast. HISTORY: Mental status changes. TECHNIQUE: Computed tomographic images of the head were obtained without contrast. *One or more of the following individualized dose reduction techniques were utilized for this examination: 1. Automated exposure control. 2. Adjustment of the mA and/or kV according to patient size. 3. Use of iterative reconstruction technique. COMPARISON: 10/01/2018. FINDINGS: There is no intracranial hemorrhage. There is no mass effect or midline shift. There is stable moderate ventricular enlargement, greater than expected for cerebral volume. There is nonspecific decreased attenuation within the cerebral white matter, also stable in appearance. There is superimposed hypodensity possibly due to a chronic infarct within the right parietotemporal junction, stable in appearance. The orbits and visualized paranasal sinuses are unremarkable. The mastoid air cells are clear. No suspicious calvarial lesion is seen. IMPRESSION: 1. Stable moderate ventricular enlargement. This is greater than expected for cerebral volume. Correlate for hydrocephalus. 2. Nonspecific decreased attenuation within the cerebral white matter, a finding which can be seen with chronic small vessel disease. This is advanced for patient age. 3. Stable hypodensity within the left parietotemporal junction, possibly due to chronic infarction. 4. Note is made that MRI is more sensitive for acute infarction. Electronically signed by: Anu Zuleta MD (11/17/2018 12:17 PM) [place] [id number]
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
--- NOTE | 2018-11-17 13:51 | NUR ---
SW following for discharge planning. Chart reviewed. Pt is from home and has outpatient dialysis set up in the community. PT pending. No discharge needs noted at this time. SW will continue to follow pending dc needs.
--- NOTE | 2018-11-17 13:53 | PDOC2 ---
CONSULT Date of Consult Date of Consult DATE: 11/17/18 TIME: 13:33 Reason for Consult Reason for Consult: ESRD on PD Source Source: Chart review, Patient History of Present Illness Reason for Visit: The patient is a 53-year-old male who is on peritoneal dialysis for end-stage renal disease. He was complaining of swelling all over the body and he produced some urine, but not able to urinate and he was not feeling better, came in, he drove himself to the ER and tried to keep his eyes shut, is sleepy, not answering questions . Called Dialysis Unit - pt has been non compliant with PD, was scheduled for care conference at the unit . his last HD was probably 3-4 months back Past Medical History Cardiovascular: HTN Pulmonary: Asthma CENTRAL NERVOUS SYSTEM: CVA, Periperal neuropathy GI: No pertinent hx Heme/Onc: Anemia NOS Hepatobiliary: No pertinent hx Psych: Anxiety Rheumatologic: No pertinent hx Infectious disease: No pertinent hx Renal/: Chronic renal failure Endocrine: No pertinent hx Past Surgical History Past Surgical History: Hernia Repair, Other Family History Family History: Heart Disease, Hypertension, Stroke Social History ALCOHOL: other Drugs: None Lives: with Family Current Problem List Problem List Problems Medical Problems: (1) Elevated diaphragm Status: Acute (2) Elevated troponin Status: Acute Current Medications Current Medications Current Medications Hydralazine HCl (Apresoline Inj) 20 mg 1X ONCE IVP Last administered on 11/17/18at 02:08; Start 11/17/18 at 02:00; Stop 11/17/18 at 02:02; Status DC Alprazolam (Xanax) 0.25 mg 1X ONCE PO Last administered on 11/17/18at 02:54; Start 11/17/18 at 02:45; Stop 11/17/18 at 02:46; Status DC Clonidine HCl (Catapres) 0.2 mg 1X ONCE PO Last administered on 11/17/18at 03:52; Start 11/17/18 at 03:15; Stop 11/17/18 at 03:16; Status DC Hydralazine HCl (Apresoline Inj) 10 mg PRN Q4HRS PRN IVP ELEVATED BP, SEE COMMENTS Last administered on 11/17/18at 07:26; Start 11/17/18 at 05:45 Albuterol Sulfate (Ventolin Neb Soln) 2.5 mg 1X ONCE NEB Last administered on 11/17/18at 09:27; Start 11/17/18 at 09:30; Stop 11/17/18 at 09:31; Status DC Albuterol Sulfate (Ventolin Neb Soln) 2.5 mg PRN Q4HRS PRN NEB SHORTNESS OF BREATH; Start 11/17/18 at 10:30 Amlodipine Besylate (Norvasc) 10 mg DAILY PO ; Start 11/17/18 at 11:00 Aspirin (Ecotrin) 325 mg DAILYWBKFT PO ; Start 11/17/18 at 11:00 Calcium/Vitamin D (Oscal D 500mg/ 200uts) 1 tab BIDWMEALS PO ; Start 11/17/18 at 11:00 Carvedilol (Coreg) 6.25 mg BIDWMEALS PO ; Start 11/17/18 at 11:00 Cetirizine HCl (ZyrTEC) 10 mg DAILY PO ; Start 11/17/18 at 11:00 Clonidine HCl (Catapres) 0.1 mg TID PO ; Start 11/17/18 at 11:00 Clonidine HCl (Catapres) 0.1 mg PRN BID PRN PO ELEVATED BP, SEE COMMENTS; Start 11/17/18 at 10:30 Docusate Sodium (Colace) 100 mg PRN DAILY PRN PO HARD STOOLS; Start 11/17/18 at 10:30 Ferrous Sulfate (Feosol) 325 mg BIDWMEALS PO ; Start 11/17/18 at 11:00 Furosemide (Lasix) 40 mg BID92 PO ; Start 11/17/18 at 11:00 Hydralazine HCl (Apresoline) 75 mg TID PO ; Start 11/17/18 at 11:00 Lidocaine (Lidoderm) 1 patch DAILY TD ; Start 11/17/18 at 11:00 Polyethylene Glycol (miraLAX PACKET) 17 gm PRN DAILY PRN PO CONSTIPATION; Start 11/17/18 at 10:30 Miscellaneous (Lidoderm Patch Removal) 1 ea QHS MC ; Start 11/17/18 at 21:00 Heparin Sodium (Porcine) (Heparin Sodium) 5,000 unit Q12HR SQ ; Start 11/17/18 at 11:00 Active Scripts Active Clonidine Hcl 0.1 Mg Tablet 1 Tab PO BID PRN Take for systolic blood pressure over 185 and/or diastolic blood pressure over 110. Colace (Docusate Sodium) 100 Mg Capsule 100 Mg PO DAILY PRN Polyethylene Glycol 3350 17 Gm Powd.pack 17 Gm PO DAILY PRN Lidocaine PATCH (Lidocaine) 1 Each Adh..patch 1 Patch TD DAILY 30 Days Proair Hfa (Albuterol Sulfate) 8.5 Gm Hfa.aer.ad 2.5 Mg NEB PRN Q4HRS PRN 30 Days Cetirizine Hcl 10 Mg Tablet 10 Mg PO DAILY 30 Days Hydralazine Hcl 25 Mg Tablet 75 Mg PO TID 30 Days Carvedilol (Carvedilol) 6.25 Mg Tablet 6.25 Mg PO BIDWMEALS 30 Days Furosemide 40 Mg Tablet 40 Mg PO BID92 30 Days Oyster Shell 500 Mg + Vit D Tb (Calcium Carbonate/Vitamin D3) 1 Each Tablet 1 Tab PO BIDWMEALS 30 Days Feosol (Ferrous Sulfate) 325 Mg Tablet 325 Mg PO BIDWMEALS 30 Days Aspirin Ec (Aspirin) 325 Mg Tablet. 325 Mg PO DAILYWBKFT 30 Days Reported Amlodipine Besylate 10 Mg Tablet 10 Mg PO DAILY Clonidine Hcl 0.1 Mg Tablet 0.1 Mg PO TID Allergies Allergies: Coded Allergies: lisinopril (Verified Allergy, Severe, Swelling, 06/03/18) I S O L A T I O N *CONTACT* (Verified Allergy, Unknown, 06/03/18) +MRSA nares 01/15/18 codeine (Verified Adverse Reaction, Mild, itching, 06/03/18) ROS Review of System Unable to Obtain details, sleeping Physical Exam Physical Exam GENERAL: NAD , sleepy, falling asleep, opens his eyes periodically, follows commands. HEENT: OM moist NECK: Supple CARDIOVASCULAR: S1, S2. LUNGS: Diminished breath sounds right base, non labored ABDOMEN: Soft, has a peritoneal dialysis catheter. : No Zamorano. EXT: edema + NEURO : sleepy, easily arousable , follows commands and goes back to sleep. Vital Signs Vital Signs Date Time Temp Pulse Resp B/P (MAP) Pulse Ox O2 Delivery O2 Flow Rate FiO2 11/17/18 11:00 97.8 63 18 175/123 (140) 100 Nasal Cannula 2.0 97.8 Assessment & Plan ESRD- Has been on PD for past few months Prior to that on Hd Non compliant with PD per OP Dialysis unit ([facility]) HD today as ordered , Dw [place] and Pt Accelerated hypertension at the time of admission BP 229/144 Resume home meds, he has been non compliant with PD Right pleural effusion, had thoracocentesis done last month, 2 liters was removed. Labs Labs Laboratory Tests Test 11/17/18 00:40 11/17/18 02:20 11/17/18 05:14 11/17/18 07:14 White Blood Count 5.7 x10^3/uL (4.0-11.0) Red Blood Count 4.32 x10^6/uL (4.30-5.70) Hemoglobin 12.3 g/dL (13.0-17.5) Hematocrit 37.1 % (39.0-53.0) Mean Corpuscular Volume 86 fL (79-100) Mean Corpuscular Hemoglobin 29 pg (25-35) Mean Corpuscular Hemoglobin Concent 33 g/dL (31-37) Red Cell Distribution Width 16.3 % (11.5-14.5) Platelet Count 167 x10^3/uL (140-400) Neutrophils (%) (Auto) 75 % (31-73) Lymphocytes (%) (Auto) 11 % (24-48) Monocytes (%) (Auto) 10 % (0-9) Eosinophils (%) (Auto) 3 % (0-3) Basophils (%) (Auto) 0 % (0-3) Neutrophils # (Auto) 4.3 x10^3/uL (1.8-7.7) Lymphocytes # (Auto) 0.6 x10^3/uL (1.0-4.8) Monocytes # (Auto) 0.6 x10^3/uL (0.0-1.1) Eosinophils # (Auto) 0.2 x10^3/uL (0.0-0.7) Basophils # (Auto) 0.0 x10^3/uL (0.0-0.2) Prothrombin Time 15.5 SEC (11.7-14.0) Prothromb Time International Ratio 1.3 (0.8-1.1) Activated Partial Thromboplast Time 33 SEC (24-38) Sodium Level 137 mmol/L (136-145) Potassium Level 3.6 mmol/L (3.5-5.1) Chloride Level 101 mmol/L (98-107) Carbon Dioxide Level 19 mmol/L (21-32) Anion Gap 17 (6-14) Blood Urea Nitrogen 95 mg/dL (8-26) Creatinine 8.8 mg/dL (0.7-1.3) Estimated GFR (Cockcroft-Gault) 7.7 BUN/Creatinine Ratio 11 (6-20) Glucose Level 171 mg/dL (70-99) Calcium Level 7.9 mg/dL (8.5-10.1) Total Bilirubin 0.8 mg/dL (0.2-1.0) Aspartate Amino Transf (AST/SGOT) 26 U/L (15-37) Alanine Aminotransferase (ALT/SGPT) 25 U/L (16-63) Alkaline Phosphatase 120 U/L (46-116) Troponin I Quantitative 0.167 ng/mL (0.000-0.055) 0.137 ng/mL (0.000-0.055) MQ-Dld-E-Type Natriuretic Peptide > 38253 pg/mL (0-124) Total Protein 6.0 g/dL (6.4-8.2) Albumin 3.0 g/dL (3.4-5.0) Albumin/Globulin Ratio 1.0 (1.0-1.7) Urine Collection Type Unknown Urine Color Yellow Urine Clarity Clear Urine pH 5.5 Urine Specific [place] 1.015 Urine Protein >=300 mg/dL (NEG-TRACE) Urine Glucose (UA) Negative mg/dL (NEG) Urine Ketones (Stick) Negative mg/dL (NEG) Urine Blood Small (NEG) Urine Nitrite Negative (NEG) Urine Bilirubin Negative (NEG) Urine Urobilinogen Dipstick 0.2 mg/dL (0.2 mg/dL) Urine Leukocyte Esterase Negative (NEG) Urine RBC Occ /HPF (0-2) Urine WBC Occ /HPF (0-4) Urine Squamous Epithelial Cells Occ /LPF Urine Bacteria 0 /HPF (0-FEW) Urine Hyaline Casts Occasional /HPF Urine Mucus Slight /LPF Urine Opiates Screen Neg (NEG) Urine Methadone Screen Neg (NEG) Urine Barbiturates Neg (NEG) Urine Phencyclidine Screen Neg (NEG) Urine Amphetamine/Methamphetamine Neg (NEG) Urine Benzodiazepines Screen Neg (NEG) Urine Cocaine Screen Neg (NEG) Urine Cannabinoids Screen Neg (NEG) Urine Ethyl Alcohol Neg (NEG) Glucose (Fingerstick) 92 mg/dL (70-99) Test 11/17/18 08:00 11/17/18 11:02 Troponin I Quantitative 0.114 ng/mL (0.000-0.055) Glucose (Fingerstick) 114 mg/dL (70-99) Laboratory Tests Test 11/17/18 00:40 11/17/18 02:20 11/17/18 05:14 11/17/18 07:14 White Blood Count 5.7 x10^3/uL (4.0-11.0) Red Blood Count 4.32 x10^6/uL (4.30-5.70) Hemoglobin 12.3 g/dL (13.0-17.5) Hematocrit 37.1 % (39.0-53.0) Mean Corpuscular Volume 86 fL (79-100) Mean Corpuscular Hemoglobin 29 pg (25-35) Mean Corpuscular Hemoglobin Concent 33 g/dL (31-37) Red Cell Distribution Width 16.3 % (11.5-14.5) Platelet Count 167 x10^3/uL (140-400) Neutrophils (%) (Auto) 75 % (31-73) Lymphocytes (%) (Auto) 11 % (24-48) Monocytes (%) (Auto) 10 % (0-9) Eosinophils (%) (Auto) 3 % (0-3) Basophils (%) (Auto) 0 % (0-3) Neutrophils # (Auto) 4.3 x10^3/uL (1.8-7.7) Lymphocytes # (Auto) 0.6 x10^3/uL (1.0-4.8) Monocytes # (Auto) 0.6 x10^3/uL (0.0-1.1) Eosinophils # (Auto) 0.2 x10^3/uL (0.0-0.7) Basophils # (Auto) 0.0 x10^3/uL (0.0-0.2) Prothrombin Time 15.5 SEC (11.7-14.0) Prothromb Time International Ratio 1.3 (0.8-1.1) Activated Partial Thromboplast Time 33 SEC (24-38) Sodium Level 137 mmol/L (136-145) Potassium Level 3.6 mmol/L (3.5-5.1) Chloride Level 101 mmol/L (98-107) Carbon Dioxide Level 19 mmol/L (21-32) Anion Gap 17 (6-14) Blood Urea Nitrogen 95 mg/dL (8-26) Creatinine 8.8 mg/dL (0.7-1.3) Estimated GFR (Cockcroft-Gault) 7.7 BUN/Creatinine Ratio 11 (6-20) Glucose Level 171 mg/dL (70-99) Calcium Level 7.9 mg/dL (8.5-10.1) Total Bilirubin 0.8 mg/dL (0.2-1.0) Aspartate Amino Transf (AST/SGOT) 26 U/L (15-37) Alanine Aminotransferase (ALT/SGPT) 25 U/L (16-63) Alkaline Phosphatase 120 U/L (46-116) Troponin I Quantitative 0.167 ng/mL (0.000-0.055) 0.137 ng/mL (0.000-0.055) FO-Sai-L-Type Natriuretic Peptide > 68410 pg/mL (0-124) Total Protein 6.0 g/dL (6.4-8.2) Albumin 3.0 g/dL (3.4-5.0) Albumin/Globulin Ratio 1.0 (1.0-1.7) Urine Collection Type Unknown Urine Color Yellow Urine Clarity Clear Urine pH 5.5 Urine Specific [place] 1.015 Urine Protein >=300 mg/dL (NEG-TRACE) Urine Glucose (UA) Negative mg/dL (NEG) Urine Ketones (Stick) Negative mg/dL (NEG) Urine Blood Small (NEG) Urine Nitrite Negative (NEG) Urine Bilirubin Negative (NEG) Urine Urobilinogen Dipstick 0.2 mg/dL (0.2 mg/dL) Urine Leukocyte Esterase Negative (NEG) Urine RBC Occ /HPF (0-2) Urine WBC Occ /HPF (0-4) Urine Squamous Epithelial Cells Occ /LPF Urine Bacteria 0 /HPF (0-FEW) Urine Hyaline Casts Occasional /HPF Urine Mucus Slight /LPF Urine Opiates Screen Neg (NEG) Urine Methadone Screen Neg (NEG) Urine Barbiturates Neg (NEG) Urine Phencyclidine Screen Neg (NEG) Urine Amphetamine/Methamphetamine Neg (NEG) Urine Benzodiazepines Screen Neg (NEG) Urine Cocaine Screen Neg (NEG) Urine Cannabinoids Screen Neg (NEG) Urine Ethyl Alcohol Neg (NEG) Glucose (Fingerstick) 92 mg/dL (70-99) Test 11/17/18 08:00 11/17/18 11:02 Troponin I Quantitative 0.114 ng/mL (0.000-0.055) Glucose (Fingerstick) 114 mg/dL (70-99) Review All relevant outside records, renal labs, imaging studies, telemetry/EKG's were reviewed. Images Images CxR-- Right basilar pleural effusion and consolidation. Minimal left basilar atelectasis suggested. MAGDIEL VOGEL MD Nov 17, 2018 13:53
[2018-11-17] MEDS ORDERED: IV NORMAL SALINE 1000ML BAG 1,000 ML IV PRN (14:39)
[2018-11-17] MEDS ORDERED: DIALYSIS PATIENT. MC PRN ×2 (14:45)
[2018-11-17 15:00] VITALS: BP 197/126
[2018-11-17] MEDS ORDERED: LIDOCAINE 1% PF 2 ML VIAL. ONE (15:12)
[2018-11-17] MEDS ORDERED: LABETALOL 20 MG/4 ML DISP.SYRIN. IVP PRN (17:15)
[2018-11-17 19:06] VITALS: BP 155/96
[2018-11-17 19:45] VITALS: BP 197/126
[2018-11-17] MEDS ORDERED: HYDROcodone/APAP 5/325MG 1 TAB TABLET PO PRN (21:00)
[2018-11-17] MEDS ORDERED: LABETALOL HCL 200 MG TABLET PO SCH (21:00)
[2018-11-17] MEDS ORDERED: PATCH REMOVAL. MC SCH (21:00)
[2018-11-17] MEDS ORDERED: ALPRAZolam 0.25 MG TABLET PO PRN (21:00)
--- NOTE | 2018-11-17 21:16 | NUR ---
Pt requesting to leave. RN attempted to get pt to stay. Offered pain meds, pt refused. Pt tachypneic, very anxious. paged and informed of pt status and wanting to leave AMA. Dr Rowan gave orders for xanax and lortab. RN offered to pt - pt stated, "then I couldn't leave." RN asked pt to at least take xanax and if still wanted to leave once it took affect, RN would bring AMA form for pt to sign. Pt adamant - but not belligerent about leaving. RN instructed pt that if he wanted to leave had to dress himself and leave under own steam. Pt verbalized understanding and agreed. Despite RN repeatedly encouraging pt to stay, insistent on leaving. Received phone call from brother. Brother was in parking lot - pt informed that he was leaving. Brother waited for him in ER parking lot. When brother approached RN and security, RN inquired if there was someone to check on pt throughout night. Brother stated that there was and why pt was leaving if he wan't stable enough to do so. Pt informed him he was leaving against dr bach. RN encouraged pt to take care of self. Pt got in brother's truck and left.
--- NOTE | 2018-11-18 10:17 | PDOC ---
Provider Note Provider Note Discharge summary dictated. #[id number] ROSALINO SERRANO MD Nov 18, 2018 10:17
--- NOTE | 2018-11-18 16:51 | DS ---
DATE OF DISCHARGE: 11/17/2018 REASON FOR ADMISSION TO THE HOSPITAL: Pain all over, accelerated hypertension. CONSULTATIONS: Dr. Garcia; Cardiology, Dr. Morin. PROCEDURES DONE: 1. CT head. 2. Hemodialysis. HOSPITAL COURSE: The patient is a 53-year-old male, patient of Dr. Callaway, has a history of end-stage renal disease; hypertension, on peritoneal dialysis. He was feeling swelling all over the body and not able to produce urine and he came to the Emergency Room by himself and the patient was seen in the Emergency Room. Chest x-ray shows right effusion. The patient was recently in the hospital 2-3 weeks ago, had a similar episode, had thoracocentesis, 2 liters was drained and he felt better and went home. The patient was seen by Cardiology, had an extensive workup in the past including cardiac catheterization, echo, stress test, which points to diastolic dysfunction. A CT head shows ventricular enlargement as well as brain atrophy. The patient left the hospital against medical advice and because of the fluid, the patient usually does peritoneal dialysis. He was hemodialyzed while he was in the hospital as per renal recommendation. The patient did not like that and he left against the medical advice. FINAL DIAGNOSES: 1. Malignant hypertension. 2. End-stage renal disease. The patient on peritoneal dialysis. 3. Right pleural effusion, recurrent, transudative from peritoneal dialysis. 4. Diastolic dysfunction. 5. Hypertension on 3-4 medications. 6. Ventricular enlargement and cerebral atrophy on CT scan. The patient left the hospital against the medical advice. ROSALINO SERRANO MD DR: RENATO/savannah JOB#: [id number] / [id number] NORRIS Ferreira
== END 2018-11-17 21:18 | disposition left against medical advice (07) | DRG 291 ==
LOC: ER 00:24 → 6 SOUTH 01:46
PROVIDERS: ADMIT Internal Medicine; ATTEND Internal Medicine
PROC: 3E1M39Z Irrigation of Peritoneal Cavity using Dialysate, Percutaneous Approach (ICD-10-PCS; principal; 2018-11-17)
DX: I13.2 Hypertensive heart and chronic kidney disease with heart failure and with stage 5 chronic kidney disease, or end stage renal disease (principal); I50.33 Acute on chronic diastolic (congestive) heart failure; N18.6 End stage renal disease; I16.1 Hypertensive emergency; R18.8 Other ascites; Z53.21 Procedure and treatment not carried out due to patient leaving prior to being seen by health care provider; F41.9 Anxiety disorder, unspecified; G31.9 Degenerative disease of nervous system, unspecified; M19.90 Unspecified osteoarthritis, unspecified site; J45.909 Unspecified asthma, uncomplicated; Z82.3 Family history of stroke; Z82.49 Family history of ischemic heart disease and other diseases of the circulatory system; Z86.73 Personal history of transient ischemic attack (TIA), and cerebral infarction without residual deficits; Z91.19 Patient's noncompliance with other medical treatment and regimen; Z99.2 Dependence on renal dialysis; Z88.8 Allergy status to other drugs, medicaments and biological substances
CPT/HCPCS: 36415; 70450; 71045; 80053; 80307; 81001; 82962; 83880; 84484; 85025; 85610; 85730; 93005; 94640; 96374; J0360; J7613; 99291-25; G0378

== ENCOUNTER 2018-11-28 18:59 | Inpatient (IN) | payer OTHER ==
[~2018-11-28] VITALS: Ht 172.7 cm; Wt 63.2 kg
[2018-11-28] MEDS ORDERED: MORPHINE SULFATE 4 MG/ML VIAL. IV ONE (19:15)
[2018-11-28 19:28] LABS: BASO % 1 % (0-3); EOS # 0.1 x10^3/uL (0.0-0.7); EOS % 2 % (0-3); HEMATOCRIT 40.9 % (39.0-53.0); HEMOGLOBIN 13.6 g/dL (13.0-17.5); LYMPH # 0.4 x10^3/uL (1.0-4.8); LYMPH % 9 % (24-48); MEAN CORPUSCULAR HEMOGLOBIN 29 pg (25-35); MEAN CORPUSCULAR HGB CONC 33 g/dL (31-37); MEAN CORPUSCULAR VOLUME 87 fL (79-100); MONO # 0.4 x10^3/uL (0.0-1.1); MONO % 9 % (0-9); NEUT # 3.8 x10^3/uL (1.8-7.7); NEUT % 79 % (31-73); PLATELET COUNT 209 x10^3/uL (140-400); RED BLOOD COUNT 4.71 x10^6/uL (4.30-5.70); RED CELL DISTRIBUTION WIDTH 17.5 % (11.5-14.5); WHITE BLOOD COUNT 4.8 x10^3/uL (4.0-11.0)
[2018-11-28] MEDS ORDERED: hydrALAZINE 20 MG/ML VIAL. IVP ONE (19:30)
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
[2018-11-28 19:50] LABS: CALCIUM 7.7 mg/dL (8.5-10.1); POTASSIUM 3.9 mmol/L (3.5-5.1)
[2018-11-28 19:55] LABS: ALBUMIN 2.8 g/dL (3.4-5.0); ALBUMIN/GLOBULIN RATIO 0.8 (1.0-1.7); TOTAL BILIRUBIN 0.8 mg/dL (0.2-1.0); TOTAL PROTEIN 6.4 g/dL (6.4-8.2)
--- NOTE | 2018-11-28 20:16 | RAD ---
Exam: Chest one view INDICATION: Chest pain TECHNIQUE: Frontal view of the chest Comparisons: CTA 03/31/2019 FINDINGS: Heart is enlarged. Pulmonary vessels are within normal limits. Complete opacification of the right mid and lower lung. There is a moderate to large right-sided effusion. IMPRESSION: Moderate to large right-sided pleural effusion with adjacent airspace disease, likely atelectasis. Superimposed infectious process is difficult to exclude Electronically signed by: Edelmira Rodriguez MD (11/28/2018 8:13 PM) [facility]
[2018-11-28] MEDS ORDERED: ACETAMINOPHEN 325 MG TABLET. PO PRN (20:45)
[2018-11-28] MEDS ORDERED: ONDANSETRON PF 4 MG/2 ML VIAL. IV PRN (20:45)
[2018-11-28 21:51] LABS: BILIRUBIN,URINE NEGATIVE (NEG); CLARITY,URINE CLEAR; COLOR,URINE YELLOW; NITRITE,URINE NEGATIVE (NEG); PH,URINE 6.5; PROTEIN,URINE 100 mg/dL (NEG-TRACE)
[2018-11-28 21:58] LABS: BARBITURATES NEG (NEG); BENZODIAZEPINES POS (NEG); CANNABINOIDS NEG (NEG); COCAINE NEG (NEG); METHADONE NEG (NEG); OPIATES POS (NEG); PHENCYCLIDINE NEG (NEG)
[2018-11-28 21:59] LABS: AMPHETAMINE/METHAMPHETAMINE NEG (NEG)
[2018-11-28 22:04] LABS: BACTERIA,URINE 0 /HPF (0-FEW); SQUAMOUS EPITHELIAL CELL,UR OCC /LPF; WBC,URINE RARE /HPF (0-4)
--- NOTE | 2018-11-28 22:15 | NUR ---
Admitted from ER accompanied by staff with admission diagnosis of right pleural effusion,hypoxia,ESRD generalized body aches patient alert and oriented with cardizem drip running at 3mg/hr pt moaning stated having headache and pain across his chest .Cardizem drip up to 5mg/h per ICU nurse
[2018-11-28] MEDS: MORPHINE SULFATE 4 MG/ML VIAL. IV PRN (22:18)
[2018-11-28 22:20] VITALS: BP 183/110
[2018-11-28 22:35] VITALS: BP 177/102
[2018-11-28 22:50] VITALS: BP 166/100
--- NOTE | 2018-11-28 23:30 | NUR ---
patient had fistula on left arm pos for bruit,and peritoneal dialysis tubings taped to abdomen patient stated doing peritoneal dialysis every day last done wednesday
[2018-11-29] VITALS (19 sets, daily range): BP systolic 124–163; BP diastolic 82–110
[2018-11-29] MEDS: MORPHINE SULFATE 4 MG/ML VIAL. IV PRN ×2 (00:33→13:29)
[2018-11-29 03:22] LABS: BASO % 1 % (0-3); EOS % 1 % (0-3); HEMATOCRIT 42.3 % (39.0-53.0); HEMOGLOBIN 14.2 g/dL (13.0-17.5); LYMPH # 0.6 x10^3/uL (1.0-4.8); LYMPH % 9 % (24-48); MEAN CORPUSCULAR HEMOGLOBIN 29 pg (25-35); MEAN CORPUSCULAR HGB CONC 34 g/dL (31-37); MEAN CORPUSCULAR VOLUME 87 fL (79-100); MONO # 0.6 x10^3/uL (0.0-1.1); MONO % 9 % (0-9); NEUT # 5.7 x10^3/uL (1.8-7.7); NEUT % 81 % (31-73); PLATELET COUNT 253 x10^3/uL (140-400); RED BLOOD COUNT 4.89 x10^6/uL (4.30-5.70); RED CELL DISTRIBUTION WIDTH 17.4 % (11.5-14.5)
[2018-11-29 03:37] LABS: ALBUMIN 3.1 g/dL (3.4-5.0); ALBUMIN/GLOBULIN RATIO 0.8 (1.0-1.7); CREATININE 7.1 mg/dL (0.7-1.3); GFR 9.8; POTASSIUM 3.7 mmol/L (3.5-5.1); TOTAL BILIRUBIN 0.9 mg/dL (0.2-1.0); TOTAL PROTEIN 6.8 g/dL (6.4-8.2)
--- NOTE | 2018-11-29 04:12 | NUR ---
Dr Rizvi director of front office for Dr Rowan returned call informed of patient troponin level@ 1915 as 0.190 and @ 0255 as 0.676 with order to consult cardio,also informed Dr patient complaining throat hurt and patient was npo for thoracentesis stated okay to have ice chips
--- NOTE | 2018-11-29 04:42 | NUR ---
Dr. Morin returned paged informed of elevated troponin@ 1915 as 0.190 at 0255 as 0.676 BNP 35,000 no new order
--- NOTE | 2018-11-29 05:35 | NUR ---
patient stated no chest pain and headache at this time denies bladder pressure stated he voided in ER has been NPO
--- NOTE | 2018-11-29 05:39 | EKG ---
[facility] [address] [place] [address] Test Date: 2018-11-28 Test Time: 19:10:05 Pat Name: FRANKIE GARCIA Department: Room: 108 1 Gender: M Bill Clerk: : 1965 Requested By: DARCIE PARRA Order Number: [id number] Reading MD: Lukas Finley Measurements Intervals [place] Rate: 85 P: 51 IA: 138 QRS: 12 QRSD: 88 T: 42 QT: 400 QTc: 482 Interpretive Statements SINUS RHYTHM NONSPECIFIC ST-T WAVE CHANGES. PROLONGED QT Electronically Signed On 12-02-2018 9:59:45 CDT by Lukas Finley
--- NOTE | 2018-11-29 08:27 | NUR ---
IP: Pt has a hx of + mrsa screens since 01/2018 with most recent on 10/30/18. Pt to be in contact precautions until there are 2 negative screens 7 days apart. Recommend Nozin decolonization proceed.
[2018-11-29] MEDS ORDERED: MINERAL OIL/PETROLATUM,WHITE OPHTH OINT 3.5GM TUBE. OU PRN (09:15)
[2018-11-29] MEDS ORDERED: POLYETHYLENE GLYCOL 3350 17 GM PACKET. PO PRN (09:45)
[2018-11-29] MEDS ORDERED: cloNIDine HCL 0.1 MG TABLET PO PRN (09:45)
[2018-11-29] MEDS ORDERED: DOCUSATE SODIUM 100 MG CAPSULE. PO PRN (09:45)
--- NOTE | 2018-11-29 09:47 | PDOC ---
Provider Note Provider Note Pt seen.H&P dictated.#[id number]. ROSALINO SERRANO MD Nov 29, 2018 09:47
[2018-11-29] MEDS ORDERED: ALPR0.254 PO (09:52)
[2018-11-29] MEDS ORDERED: POTA20TA82 PO (09:52)
[2018-11-29] MEDS ORDERED: DULO30CA2 PO (09:52)
[2018-11-29] MEDS ORDERED: CLON0.2T PO (09:52)
[2018-11-29] MEDS ORDERED: DOXA4TAB3 PO (09:52)
[2018-11-29] MEDS ORDERED: CARV12.511 PO (09:52)
[2018-11-29] MEDS ORDERED: HYDR-2869 PO (09:52)
--- NOTE | 2018-11-29 10:02 | PDOC2 ---
CONSULT Date of Consult Date of Consult DATE: 11/29/18 TIME: 09:54 Reason for Consult Reason for Consult: ESRD Source Source: Chart review, Patient History of Present Illness Reason for Visit: Patient is a 53 year old AAM with a history of end-stage renal disease on peritoneal dialysis, chronic pain, hypertension presents to the ED complaining of chest pain . DescribeD his pain as sharp , 8 out of 10. Patient's blood pressure on arrival is 260/160. States he's been taking his blood pressure medications as scheduled. Patient recently admitted a few days ago for similar symptoms. Had a right lung effusion and had 1 liter of fluid removed by thoracentesis. Patients O2 saturation is 91% on arrival. Denies headache, vision changes, dizziness, syncope, fever, cough, lower leg swelling, back pain. Per the PD nurse at [facility] and Dr. Patrica Muñoz is non compliant with PD and meds . He refuses HD -" needles tear me up, they have tried Lidocaine injections and cream" Currently c/o shortness of breath and agreeable for HD today Past Medical History Cardiovascular: HTN Pulmonary: Asthma CENTRAL NERVOUS SYSTEM: CVA, Periperal neuropathy GI: No pertinent hx Heme/Onc: Anemia NOS Hepatobiliary: No pertinent hx Psych: Anxiety Rheumatologic: No pertinent hx Infectious disease: No pertinent hx Renal/: Chronic renal failure Endocrine: No pertinent hx, Hyperparathyroidism Past Surgical History Past Surgical History: Hernia Repair, Other Family History Family History: Heart Disease, Hypertension, Stroke Social History ALCOHOL: none Drugs: None Lives: with Family Current Problem List Problem List Problems Medical Problems: (1) ESRD (end stage renal disease) on dialysis Status: Acute (2) Hypoxia Status: Acute Current Medications Current Medications Current Medications Morphine Sulfate (Morphine Sulfate) 4 mg 1X ONCE IV Last administered on 11/28/18at 19:49; Start 11/28/18 at 19:15; Stop 11/28/18 at 19:16; Status DC Hydralazine HCl (Apresoline Inj) 10 mg 1X ONCE IVP Last administered on 11/28/18at 19:49; Start 11/28/18 at 19:30; Stop 11/28/18 at 19:31; Status DC Nicardipine HCl 50 mg/Sodium Chloride 250 ml @ 25 mls/hr 1X ONCE IV Last administered on 11/28/18at 20:59; Start 11/28/18 at 21:00; Stop 11/29/18 at 06:59; Status DC Ondansetron HCl (Zofran) 4 mg PRN Q8HRS PRN IV NAUSEA/VOMITING; Start 11/28/18 at 20:45; Stop 11/29/18 at 20:44 Morphine Sulfate (Morphine Sulfate) 4 mg PRN Q2HR PRN IV PAIN Last administered on 11/29/18at 00:37; Start 11/28/18 at 20:45; Stop 11/29/18 at 20:44 Acetaminophen (Tylenol) 650 mg PRN Q4HRS PRN PO FEVER; Start 11/28/18 at 20:45; Stop 11/29/18 at 20:44 Nicardipine HCl 50 mg/Sodium Chloride 250 ml @ 25 mls/hr CONT PRN IV SEE I/O RECORD Last administered on 11/29/18at 08:09; Start 11/29/18 at 08:00 Multi-Ingred Cream/Lotion/Oil/ Oint (Artificial Tears Eye Ointment) 1 ronald PRN Q1HR PRN OU DRY EYE; Start 11/29/18 at 09:15 Amlodipine Besylate (Norvasc) 10 mg DAILY PO ; Start 11/30/18 at 09:00; Status UNV Calcium/Vitamin D (Oscal D 500mg/ 200uts) 1 tab BIDWMEALS PO ; Start 11/29/18 at 17:00; Status UNV Carvedilol (Coreg) 6.25 mg BIDWMEALS PO ; Start 11/29/18 at 17:00; Status UNV Cetirizine HCl (ZyrTEC) 10 mg DAILY PO ; Start 11/30/18 at 09:00; Status UNV Clonidine HCl (Catapres) 0.1 mg TID PO ; Start 11/29/18 at 14:00; Status UNV Clonidine HCl (Catapres) 0.1 mg BID PRN PO ELEVATED BP, SEE COMMENTS; Start 11/29/18 at 09:45; Status UNV Docusate Sodium (Colace) 100 mg DAILY PRN PO CONSTIPATION; Start 11/29/18 at 09:45; Status UNV Ferrous Sulfate (Feosol) 325 mg BIDWMEALS PO ; Start 11/29/18 at 17:00; Status UNV Furosemide (Lasix) 40 mg BID92 PO ; Start 11/29/18 at 14:00; Status UNV Hydralazine HCl (Apresoline) 75 mg TID PO ; Start 11/29/18 at 14:00; Status UNV Lidocaine (Lidoderm) 1 patch DAILY TD ; Start 11/30/18 at 09:00; Status UNV Polyethylene Glycol (miraLAX PACKET) 17 gm DAILY PRN PO CONSTIPATION; Start 11/29/18 at 09:45; Status UNV Miscellaneous (Lidoderm Patch Removal) 1 ea QHS MC ; Start 11/29/18 at 21:00; Status UNV Active Scripts Active Colace (Docusate Sodium) 100 Mg Capsule 100 Mg PO DAILY PRN Polyethylene Glycol 3350 17 Gm Powd.pack 17 Gm PO DAILY PRN Lidocaine PATCH (Lidocaine) 1 Each Adh..patch 1 Patch TD DAILY 30 Days Proair Hfa (Albuterol Sulfate) 8.5 Gm Hfa.aer.ad 2.5 Mg NEB PRN Q4HRS PRN 30 Days Cetirizine Hcl 10 Mg Tablet 10 Mg PO DAILY 30 Days Furosemide 40 Mg Tablet 40 Mg PO BID92 30 Days Oyster Shell 500 Mg + Vit D Tb (Calcium Carbonate/Vitamin D3) 1 Each Tablet 1 Tab PO BIDWMEALS 30 Days Aspirin Ec (Aspirin) 325 Mg Tablet. 325 Mg PO DAILYWBKFT 30 Days Reported Doxazosin Mesylate 4 Mg Tablet 4 Mg PO HS Carvedilol (Carvedilol) 12.5 Mg Tablet 12.5 Mg PO BIDWMEALS Clonidine Hcl 0.2 Mg Tablet 0.2 Mg PO BID Alprazolam 0.25 Mg Tablet 1 Tab PO PRN DAILY PRN Cymbalta (Duloxetine Hcl) 30 Mg Capsule. 1 Cap PO DAILY Potassium Chloride 20 Meq Tablet.er 20 Meq PO DAILY Hydralazine Hcl 50 Mg Tablet 1 Tab PO BID Allergies Allergies: Coded Allergies: lisinopril (Verified Allergy, Severe, Swelling, 06/03/18) I S O L A T I O N *CONTACT* (Verified Allergy, Unknown, 06/03/18) +MRSA nares 01/15/18 codeine (Verified Adverse Reaction, Mild, itching, 06/03/18) ROS Review of System Per HPI Physical Exam Physical Exam GENERAL: NAD HEENT: OM moist NECK: Supple CARDIOVASCULAR: S1, S2. LUNGS: Diminished breath sounds right base, non labored ABDOMEN: Soft, has a peritoneal dialysis catheter. : No Zamorano. 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 HTN - stable Continue home antihypertensives Right pleural effusion- Likely will need Thoracentesis Discussed A/P with Pt and RN Labs Labs Laboratory Tests Test 11/28/18 19:15 11/28/18 21:40 11/29/18 02:55 White Blood Count 4.8 x10^3/uL (4.0-11.0) 7.0 x10^3/uL (4.0-11.0) Red Blood Count 4.71 x10^6/uL (4.30-5.70) 4.89 x10^6/uL (4.30-5.70) Hemoglobin 13.6 g/dL (13.0-17.5) 14.2 g/dL (13.0-17.5) Hematocrit 40.9 % (39.0-53.0) 42.3 % (39.0-53.0) Mean Corpuscular Volume 87 fL (79-100) 87 fL (79-100) Mean Corpuscular Hemoglobin 29 pg (25-35) 29 pg (25-35) Mean Corpuscular Hemoglobin Concent 33 g/dL (31-37) 34 g/dL (31-37) Red Cell Distribution Width 17.5 % (11.5-14.5) 17.4 % (11.5-14.5) Platelet Count 209 x10^3/uL (140-400) 253 x10^3/uL (140-400) Neutrophils (%) (Auto) 79 % (31-73) 81 % (31-73) Lymphocytes (%) (Auto) 9 % (24-48) 9 % (24-48) Monocytes (%) (Auto) 9 % (0-9) 9 % (0-9) Eosinophils (%) (Auto) 2 % (0-3) 1 % (0-3) Basophils (%) (Auto) 1 % (0-3) 1 % (0-3) Neutrophils # (Auto) 3.8 x10^3/uL (1.8-7.7) 5.7 x10^3/uL (1.8-7.7) Lymphocytes # (Auto) 0.4 x10^3/uL (1.0-4.8) 0.6 x10^3/uL (1.0-4.8) Monocytes # (Auto) 0.4 x10^3/uL (0.0-1.1) 0.6 x10^3/uL (0.0-1.1) Eosinophils # (Auto) 0.1 x10^3/uL (0.0-0.7) 0.0 x10^3/uL (0.0-0.7) Basophils # (Auto) 0.0 x10^3/uL (0.0-0.2) 0.0 x10^3/uL (0.0-0.2) Sodium Level 141 mmol/L (136-145) 142 mmol/L (136-145) Potassium Level 3.9 mmol/L (3.5-5.1) 3.7 mmol/L (3.5-5.1) Chloride Level 103 mmol/L (98-107) 103 mmol/L (98-107) Carbon Dioxide Level 26 mmol/L (21-32) 25 mmol/L (21-32) Anion Gap 12 (6-14) 14 (6-14) Blood Urea Nitrogen 84 mg/dL (8-26) 94 mg/dL (8-26) Creatinine 7.0 mg/dL (0.7-1.3) 7.1 mg/dL (0.7-1.3) Estimated GFR (Cockcroft-Gault) 10.0 9.8 BUN/Creatinine Ratio 12 (6-20) 13 (6-20) Glucose Level 100 mg/dL (70-99) 123 mg/dL (70-99) Calcium Level 7.7 mg/dL (8.5-10.1) 8.0 mg/dL (8.5-10.1) Total Bilirubin 0.8 mg/dL (0.2-1.0) 0.9 mg/dL (0.2-1.0) Aspartate Amino Transf (AST/SGOT) 31 U/L (15-37) 27 U/L (15-37) Alanine Aminotransferase (ALT/SGPT) 20 U/L (16-63) 21 U/L (16-63) Alkaline Phosphatase 97 U/L (46-116) 95 U/L (46-116) Troponin I Quantitative 0.190 ng/mL (0.000-0.055) 0.676 ng/mL (0.000-0.055) JM-Hmi-G-Type Natriuretic Peptide > 95532 pg/mL (0-124) Total Protein 6.4 g/dL (6.4-8.2) 6.8 g/dL (6.4-8.2) Albumin 2.8 g/dL (3.4-5.0) 3.1 g/dL (3.4-5.0) Albumin/Globulin Ratio 0.8 (1.0-1.7) 0.8 (1.0-1.7) Urine Collection Type Void Urine Color Yellow Urine Clarity Clear Urine pH 6.5 Urine Specific Taft 1.015 Urine Protein 100 mg/dL (NEG-TRACE) Urine Glucose (UA) Negative mg/dL (NEG) Urine Ketones (Stick) Negative mg/dL (NEG) Urine Blood Small (NEG) Urine Nitrite Negative (NEG) Urine Bilirubin Negative (NEG) Urine Urobilinogen Dipstick 1.0 mg/dL (0.2 mg/dL) Urine Leukocyte Esterase Negative (NEG) Urine RBC 1-2 /HPF (0-2) Urine WBC Rare /HPF (0-4) Urine Squamous Epithelial Cells Occ /LPF Urine Bacteria 0 /HPF (0-FEW) Urine Opiates Screen Pos (NEG) Urine Methadone Screen Neg (NEG) Urine Barbiturates Neg (NEG) Urine Phencyclidine Screen Neg (NEG) Urine Amphetamine/Methamphetamine Neg (NEG) Urine Benzodiazepines Screen Pos (NEG) Urine Cocaine Screen Neg (NEG) Urine Cannabinoids Screen Neg (NEG) Urine Ethyl Alcohol Neg (NEG) Laboratory Tests Test 11/28/18 19:15 8/19/19 21:40 11/29/18 02:55 White Blood Count 4.8 x10^3/uL (4.0-11.0) 7.0 x10^3/uL (4.0-11.0) Red Blood Count 4.71 x10^6/uL (4.30-5.70) 4.89 x10^6/uL (4.30-5.70) Hemoglobin 13.6 g/dL (13.0-17.5) 14.2 g/dL (13.0-17.5) Hematocrit 40.9 % (39.0-53.0) 42.3 % (39.0-53.0) Mean Corpuscular Volume 87 fL (79-100) 87 fL (79-100) Mean Corpuscular Hemoglobin 29 pg (25-35) 29 pg (25-35) Mean Corpuscular Hemoglobin Concent 33 g/dL (31-37) 34 g/dL (31-37) Red Cell Distribution Width 17.5 % (11.5-14.5) 17.4 % (11.5-14.5) Platelet Count 209 x10^3/uL (140-400) 253 x10^3/uL (140-400) Neutrophils (%) (Auto) 79 % (31-73) 81 % (31-73) Lymphocytes (%) (Auto) 9 % (24-48) 9 % (24-48) Monocytes (%) (Auto) 9 % (0-9) 9 % (0-9) Eosinophils (%) (Auto) 2 % (0-3) 1 % (0-3) Basophils (%) (Auto) 1 % (0-3) 1 % (0-3) Neutrophils # (Auto) 3.8 x10^3/uL (1.8-7.7) 5.7 x10^3/uL (1.8-7.7) Lymphocytes # (Auto) 0.4 x10^3/uL (1.0-4.8) 0.6 x10^3/uL (1.0-4.8) Monocytes # (Auto) 0.4 x10^3/uL (0.0-1.1) 0.6 x10^3/uL (0.0-1.1) Eosinophils # (Auto) 0.1 x10^3/uL (0.0-0.7) 0.0 x10^3/uL (0.0-0.7) Basophils # (Auto) 0.0 x10^3/uL (0.0-0.2) 0.0 x10^3/uL (0.0-0.2) Sodium Level 141 mmol/L (136-145) 142 mmol/L (136-145) Potassium Level 3.9 mmol/L (3.5-5.1) 3.7 mmol/L (3.5-5.1) Chloride Level 103 mmol/L (98-107) 103 mmol/L (98-107) Carbon Dioxide Level 26 mmol/L (21-32) 25 mmol/L (21-32) Anion Gap 12 (6-14) 14 (6-14) Blood Urea Nitrogen 84 mg/dL (8-26) 94 mg/dL (8-26) Creatinine 7.0 mg/dL (0.7-1.3) 7.1 mg/dL (0.7-1.3) Estimated GFR (Cockcroft-Gault) 10.0 9.8 BUN/Creatinine Ratio 12 (6-20) 13 (6-20) Glucose Level 100 mg/dL (70-99) 123 mg/dL (70-99) Calcium Level 7.7 mg/dL (8.5-10.1) 8.0 mg/dL (8.5-10.1) Total Bilirubin 0.8 mg/dL (0.2-1.0) 0.9 mg/dL (0.2-1.0) Aspartate Amino Transf (AST/SGOT) 31 U/L (15-37) 27 U/L (15-37) Alanine Aminotransferase (ALT/SGPT) 20 U/L (16-63) 21 U/L (16-63) Alkaline Phosphatase 97 U/L (46-116) 95 U/L (46-116) Troponin I Quantitative 0.190 ng/mL (0.000-0.055) 0.676 ng/mL (0.000-0.055) BZ-Ygs-W-Type Natriuretic Peptide > 22931 pg/mL (0-124) Total Protein 6.4 g/dL (6.4-8.2) 6.8 g/dL (6.4-8.2) Albumin 2.8 g/dL (3.4-5.0) 3.1 g/dL (3.4-5.0) Albumin/Globulin Ratio 0.8 (1.0-1.7) 0.8 (1.0-1.7) Urine Collection Type Void Urine Color Yellow Urine Clarity Clear Urine pH 6.5 Urine Specific Taft 1.015 Urine Protein 100 mg/dL (NEG-TRACE) Urine Glucose (UA) Negative mg/dL (NEG) Urine Ketones (Stick) Negative mg/dL (NEG) Urine Blood Small (NEG) Urine Nitrite Negative (NEG) Urine Bilirubin Negative (NEG) Urine Urobilinogen Dipstick 1.0 mg/dL (0.2 mg/dL) Urine Leukocyte Esterase Negative (NEG) Urine RBC 1-2 /HPF (0-2) Urine WBC Rare /HPF (0-4) Urine Squamous Epithelial Cells Occ /LPF Urine Bacteria 0 /HPF (0-FEW) Urine Opiates Screen Pos (NEG) Urine Methadone Screen Neg (NEG) Urine Barbiturates Neg (NEG) Urine Phencyclidine Screen Neg (NEG) Urine Amphetamine/Methamphetamine Neg (NEG) Urine Benzodiazepines Screen Pos (NEG) Urine Cocaine Screen Neg (NEG) Urine Cannabinoids Screen Neg (NEG) Urine Ethyl Alcohol Neg (NEG) Review All relevant outside records, renal labs, imaging studies, telemetry/EKG's were reviewed. Images Images MPRESSION: Moderate to large right-sided pleural effusion with adjacent airspace disease, likely atelectasis. Superimposed infectious process is difficult to exclude MAGDILE VOGEL MD Nov 29, 2018 10:02
[2018-11-29] MEDS ORDERED: hydrALAZINE 25 MG TABLET PO ONE (10:15)
[2018-11-29] MEDS ORDERED: cloNIDine HCL 0.1 MG TABLET PO ONE (10:15)
[2018-11-29] MEDS ORDERED: CARVEDILOL 6.25 MG TABLET. PO ONE (10:15)
[2018-11-29] MEDS ORDERED: FUROSEMIDE 40 MG TABLET. PO ONE (10:15)
[2018-11-29] MEDS ORDERED: IV NORMAL SALINE 1000ML BAG 1,000 ML IV PRN ×2 (10:24)
[2018-11-29] MEDS: CETIRIZINE HCL 10 MG TABLET. PO SCH (10:30)
[2018-11-29] MEDS ORDERED: diphenhydrAMINE 50 MG/ML VIAL IV PRN ×2 (10:30)
[2018-11-29] MEDS ORDERED: DIALYSIS PATIENT. MC PRN ×2 (10:30)
[2018-11-29] MEDS: LIDOCAINE (700MG/PATCH) PATCH. TD SCH (10:31)
[2018-11-29] MEDS: amLODIPine BESYLATE 10 MG TABLET PO SCH (10:31)
[2018-11-29] MEDS: CALCIUM CARB/VIT D3 500/200 TABLET. PO SCH ×2 (10:32→18:15)
--- NOTE | 2018-11-29 10:56 | HP ---
ADMIT DATE: 11/28/2018 LOCATION: 108. ATTENDING PHYSICIAN: Bernarda Serrano MD PRIMARY CARE PHYSICIAN: Michelle Callaway MD HISTORY OF PRESENT ILLNESS: The patient is a 53-year-old -[place] male. The patient has end-stage renal disease, on peritoneal dialysis and he has been admitted a couple of times, in the last 30 days at least 2 times, because of shortness of breath. He had a recurrent right pleural effusion, had a thoracentesis done, first time 2 weeks ago, 2 liters, the second time a week ago, 1 liter and was transudative fluid and the patient felt that because of the peritoneal dialysis causing problems, he might get assistance from hemodialysis. Discussed with Renal today. PAST MEDICAL HISTORY: History of hypertension. The patient had a cardiac catheterization that showed normal coronaries, last year, end-stage renal disease, on peritoneal dialysis. PAST SURGICAL HISTORY: As mentioned, had a cardiac catheterization, peritoneal dialysis catheter, had thoracocentesis x 2, hernia repair. FAMILY HISTORY: Heart disease, hypertension, stroke. SOCIAL HISTORY: Denies smoking, alcohol, drug abuse. MEDICATIONS At home; albuterol, amlodipine 10 mg daily, aspirin 325 daily, calcium with vitamin D daily, Coreg 6.25 twice a day, cetirizine 10 mg daily, clonidine 0.1 three times a day, Colace daily, iron 325 daily, Lasix 40 mg twice a day, hydralazine 75 mg twice a day, lidocaine application, before dialysis, Lidoderm patch, MiraLax 17 grams daily. REVIEW OF SYMPTOMS: Complains of pain all over, has some shortness of breath. No chest pain. PHYSICAL EXAMINATION: VITAL SIGNS: At the time of admission shows a temperature of 98, pulse 84, respirations 20, blood pressure 265/157, 96% on 2 liters. HEENT: Head is atraumatic. Pupils equal. Oral cavity: No congestion. NECK: Supple. Thyroid not enlarged. JVD not elevated. CHEST: Symmetrical. LUNGS: Diminished breath sounds on the right side. Good air entry in the left lung. ABDOMEN: Distended. Has peritoneal access catheter and soft, nontender. EXTERNAL GENITALIA: No Zamorano. RECTAL: Deferred. EXTREMITIES: No calf tenderness, no edema. Pulses 1+. NEUROLOGIC: Moving all extremities. No focal deficits noted. LABORATORY DATA: Shows a white count of 5, hemoglobin 13, platelets 209. Electrolytes show sodium 141, potassium 3.9, chloride 103, bicarbonate 26, BUN 84, creatinine 7.0, glucose 100. LFTs were normal. Troponin 0.1, peaked to 0.6 and urine negative for infection. Chest x-ray shows right effusion. EKG done, report is pending. FINAL IMPRESSION: 1. Recurrent right pleural effusion, probably related to his peritoneal dialysis. 2. End-stage renal disease, on peritoneal dialysis. 3. Hypertension, malignant. 4. Discussed with Renal. Probably, we should not continue peritoneal dialysis. Change it to hemodialysis and we will have Interventional Radiology to do thoracocentesis again and see how he does. BERNARDA SERRANO MD DR: RENATO/savannah JOB#: [id number] / [id number] MICHELLE Ferreira
[2018-11-29] MEDS ORDERED: GENTAMICIN 0.1% TOPICAL OINTMENT 15GM TUBE. TP SCH (11:30)
--- NOTE | 2018-11-29 11:59 | CONS ---
DATE OF CONSULTATION: PULMONARY CONSULTATION ATTENDING PHYSICIAN: Bernarda Rowan. REASON FOR CONSULTATION: Recurrent pleural effusion. HISTORY OF PRESENT ILLNESS: The patient is a 53-year-old male who has history of end-stage renal disease, has been on peritoneal dialysis for the past few years. The patient has been on hemodialysis as well in the past. He came into the hospital with complaint of increased shortness of breath. He had recurrent right-sided large pleural effusion. He had a thoracentesis done just a week ago. It was a transudative effusion and it was felt that the pleural effusion was resulting from leakage of peritoneal fluid into the pleural space. He denies any tobacco history. He is not on home oxygen. No chest pains. No headaches. No nausea, vomiting or diarrhea. PAST MEDICAL HISTORY: History of hypertension. History of cardiac catheterization showed normal coronary arteries. History of end-stage renal disease, on peritoneal dialysis. PAST SURGICAL HISTORY: Cardiac catheterization and peritoneal dialysis catheter and fistula. History of thoracentesis x 2 and hernia repair. FAMILY HISTORY: Heart disease, hypertension and stroke. SOCIAL HISTORY: No history of tobacco or alcohol or drug use. MEDICATIONS: His current medications are all reviewed as listed in the MRAD. ALLERGIES: CODEINE AND LISINOPRIL. REVIEW OF SYSTEMS: A 12-point system review was obtained. Pertinent positives discussed in my history of present illness, otherwise noncontributory. All systems that were negative were reviewed as well. PHYSICAL EXAMINATION: VITAL SIGNS: On examination, vital signs were reviewed. His initial blood pressure on admission was markedly high at 265/157, now 144/82, pulse ox 98% on 2 liters, afebrile. HEENT: Sclerae nonicteric. NECK: Supple. LUNGS: With diminished breath sounds at right base. CARDIOVASCULAR: Regular rate and rhythm. ABDOMEN: Soft. EXTREMITIES: With no pitting edema. LABORATORY DATA: Reviewed. White cell count 7.0, hemoglobin 14.2 and platelets are 253. BUN 94 and a creatinine of 7.1. IMPRESSION: 1. Acute hypoxic respiratory failure secondary to recurrent right-sided pleural effusion. 2. Recurrent right-sided pleural effusion, likely etiology includes a combination of acute diastolic heart failure from hypertensive emergency and also likely possibility of leakage of peritoneal fluid into the right pleural space. 3. End-stage renal disease, on peritoneal dialysis. 4. No significant tobacco history. RECOMMENDATIONS: 1. Proceed with IR directed right-sided thoracentesis. 2. Discussed with the patient and he would benefit from hemodialysis. 3. Follow chest x-ray post thoracentesis. 4. Continue present oxygen until thoracentesis is done. 5. To prevent long-term reaccumulation of right-sided effusion. He would be better off with hemodialysis. 6. Discussed with RN. FLACO RAMESH MD DR: MARCELLA/savannah JOB#: [id number] / [id number]
[2018-11-29] MEDS: FERROUS SULFATE 325 MG TABLET. PO SCH ×2 (12:00→18:15)
[2018-11-29] MEDS: CARVEDILOL 6.25 MG TABLET. PO SCH ×2 (12:01→18:18)
--- NOTE | 2018-11-29 12:01 | NUR ---
SS following for discharge planning. SS reviewed pt chart. Pt is from home and is currently requiring oxygen. Pt has hemodialysis in the community. No discharge needs noted at this time. SS will continue to follow for discharge planning.
[2018-11-29] MEDS ORDERED: POLYVINYL ALCOHOL 1.4% OPHTH SOLUTION 15ML BOTTLE. OU PRN (12:15)
[2018-11-29] MEDS: FUROSEMIDE 40 MG TABLET. PO SCH (14:00)
[2018-11-29] MEDS: hydrALAZINE 25 MG TABLET PO SCH ×2 (14:00→21:40)
[2018-11-29] MEDS: cloNIDine HCL 0.1 MG TABLET PO SCH ×2 (14:00→21:39)
--- NOTE | 2018-11-29 14:20 | PDOC2 ---
ELKIN SMITH SECURITY ADVISOR 11/29/18 1420: CARDIAC CONSULT DATE OF CONSULT Date of Consult DATE: 11/29/18 TIME: 14:06 REASON FOR CONSULT Reason for Consult: Elevated troponin REFERRING PHYSICIAN Referring Physician: Dr. Rizvi SOURCE Source: Chart review, Patient HISTORY OF PRESENT ILLNESS HISTORY OF PRESENT ILLNESS This is a53 yo male who presented secondary to shortness of breath and generalized body aches. Has a history of ESRD on PD. Has been non-compliant with treatment periodically. Last PD sessions Wednesday. SOA has been progressive. Noted with large pleural effusion upon arrival. Blood pressure also significantly elevated. No chest pain, dizziness, diaphoresis, or nausea/vomiting. PAST MEDICAL HISTORY Past Medical History Cardiovascular: HTN, CHF (diastolic) Pulmonary: Asthma CENTRAL NERVOUS SYSTEM: CVA, Peripheral neuropathy GI: No pertinent hx Heme/Onc: Anemia NOS Hepatobiliary: No pertinent hx Psych: Anxiety Musculoskeletal: Osteoarthritis Rheumatologic: No pertinent hx Infectious disease: No pertinent hx ENT: No pertinent hx Renal/: Chronic renal failure (ESRD on PD) Endocrine: No pertinent hx Dermatology: No pertinent hx PAST SURGICAL HISTORY Past Surgical History Other (lumbar fusion, L dialysis fistula placement, corneal transplant, paracentesis) FAMILY HISTORY Family History Heart Disease, Hypertension, Stroke SOCIAL HISTORY Social History Smoke: No ALCOHOL: none Drugs: None Lives: with Family CURRENT MEDICATIONS CURRENT MEDICATIONS Current Medications Medications (Trade) Dose Ordered Sig/Sascha Route PRN Reason Start Time Stop Time Status Last Admin Dose Admin Morphine Sulfate (Morphine Sulfate) 4 mg 1X ONCE IV 11/28/18 19:15 11/28/18 19:16 DC 11/28/18 19:49 Hydralazine HCl (Apresoline Inj) 10 mg 1X ONCE IVP 11/28/18 19:30 11/28/18 19:31 DC 11/28/18 19:49 Nicardipine HCl 50 mg/Sodium Chloride 250 ml @ 25 mls/hr 1X ONCE IV 11/28/18 21:00 11/29/18 06:59 DC 11/28/18 20:59 Morphine Sulfate (Morphine Sulfate) 4 mg PRN Q2HR PRN IV PAIN 11/28/18 20:45 11/29/18 20:44 11/29/18 13:29 Nicardipine HCl 50 mg/Sodium Chloride 250 ml @ 25 mls/hr CONT PRN IV SEE I/O RECORD 11/29/18 08:00 11/29/18 08:09 Multi-Ingred Cream/Lotion/Oil/ Oint (Artificial Tears Eye Ointment) 1 ronald PRN Q1HR PRN OU DRY EYE 11/29/18 09:15 11/29/18 12:06 DC 11/29/18 10:32 Amlodipine Besylate (Norvasc) 10 mg DAILY PO 11/29/18 11:00 11/29/18 10:32 Carvedilol (Coreg) 6.25 mg BIDWMEALS PO 11/29/18 12:00 11/29/18 12:01 Cetirizine HCl (ZyrTEC) 10 mg DAILY PO 11/29/18 11:00 11/29/18 10:32 Ferrous Sulfate (Feosol) 325 mg BIDWMEALS PO 11/29/18 12:00 11/29/18 12:01 Hydralazine HCl (Apresoline) 75 mg 1X ONCE PO 11/29/18 10:15 11/29/18 10:16 DC 11/29/18 10:32 Furosemide (Lasix) 40 mg 1X ONCE PO 11/29/18 10:15 11/29/18 10:16 DC 11/29/18 10:32 Clonidine HCl (Catapres) 0.1 mg 1X ONCE PO 11/29/18 10:15 11/29/18 10:16 DC 11/29/18 10:32 ALLERGIES ALLERGIES: Coded Allergies: lisinopril (Verified Allergy, Severe, Swelling, 06/03/18) codeine (Verified Allergy, Intermediate, itching, 11/29/18) I S O L A T I O N *CONTACT* (Verified Allergy, Unknown, 06/03/18) +MRSA nares 01/15/18 ROS Review of System 14 point ROS conducted with pertinent positives noted above in HPI. PHYSICAL EXAM PHYSICAL EXAM General: Alert, Oriented X3, Cooperative, No acute distress HEENT: Atraumatic, Mucous membr. moist/pink Lungs: diminished, bibasilar crackles Heart: Regular rate (SR), Normal S1, Normal S2, Other (3/6 systolic murmur to LLS border) Abdomen: ascites Extremities: No cyanosis, 2+ bilateral LE edema Skin: No breakdown, No significant lesion Neuro: Normal speech, Sensation intact Psych/Mental Status: Mental status NL, Mood NL MUSCULOSKELETAL: Osteoarthritic changes both hands VITALS/I&O VITALS/I&O: Vital Signs Date Time Temp Pulse Resp B/P (MAP) Pulse Ox O2 Delivery O2 Flow Rate FiO2 11/29/18 13:29 18 97 Nasal Cannula 2.0 11/29/18 13:00 71 124/86 (99) 11/29/18 12:00 97.9 97.9 I & O 11/28/18 11/28/18 11/29/18 15:00 23:00 07:00 Intake Total 0 ml Output Total 0 ml Balance 0 ml LABS Lab: Laboratory Tests Test 11/28/18 19:15 11/28/18 21:40 11/29/18 02:55 White Blood Count 4.8 x10^3/uL (4.0-11.0) 7.0 x10^3/uL (4.0-11.0) Red Blood Count 4.71 x10^6/uL (4.30-5.70) 4.89 x10^6/uL (4.30-5.70) Hemoglobin 13.6 g/dL (13.0-17.5) 14.2 g/dL (13.0-17.5) Hematocrit 40.9 % (39.0-53.0) 42.3 % (39.0-53.0) Mean Corpuscular Volume 87 fL (79-100) 87 fL (79-100) Mean Corpuscular Hemoglobin 29 pg (25-35) 29 pg (25-35) Mean Corpuscular Hemoglobin Concent 33 g/dL (31-37) 34 g/dL (31-37) Red Cell Distribution Width 17.5 % (11.5-14.5) H 17.4 % (11.5-14.5) H Platelet Count 209 x10^3/uL (140-400) 253 x10^3/uL (140-400) Neutrophils (%) (Auto) 79 % (31-73) H 81 % (31-73) H Lymphocytes (%) (Auto) 9 % (24-48) L 9 % (24-48) L Monocytes (%) (Auto) 9 % (0-9) 9 % (0-9) Eosinophils (%) (Auto) 2 % (0-3) 1 % (0-3) Basophils (%) (Auto) 1 % (0-3) 1 % (0-3) Neutrophils # (Auto) 3.8 x10^3/uL (1.8-7.7) 5.7 x10^3/uL (1.8-7.7) Lymphocytes # (Auto) 0.4 x10^3/uL (1.0-4.8) L 0.6 x10^3/uL (1.0-4.8) L Monocytes # (Auto) 0.4 x10^3/uL (0.0-1.1) 0.6 x10^3/uL (0.0-1.1) Eosinophils # (Auto) 0.1 x10^3/uL (0.0-0.7) 0.0 x10^3/uL (0.0-0.7) Basophils # (Auto) 0.0 x10^3/uL (0.0-0.2) 0.0 x10^3/uL (0.0-0.2) Sodium Level 141 mmol/L (136-145) 142 mmol/L (136-145) Potassium Level 3.9 mmol/L (3.5-5.1) 3.7 mmol/L (3.5-5.1) Chloride Level 103 mmol/L (98-107) 103 mmol/L (98-107) Carbon Dioxide Level 26 mmol/L (21-32) 25 mmol/L (21-32) Anion Gap 12 (6-14) 14 (6-14) Blood Urea Nitrogen 84 mg/dL (8-26) H 94 mg/dL (8-26) H Creatinine 7.0 mg/dL (0.7-1.3) H 7.1 mg/dL (0.7-1.3) H Estimated GFR (Cockcroft-Gault) 10.0 9.8 BUN/Creatinine Ratio 12 (6-20) 13 (6-20) Glucose Level 100 mg/dL (70-99) H 123 mg/dL (70-99) H Calcium Level 7.7 mg/dL (8.5-10.1) L 8.0 mg/dL (8.5-10.1) L Total Bilirubin 0.8 mg/dL (0.2-1.0) 0.9 mg/dL (0.2-1.0) Aspartate Amino Transferase (AST) 31 U/L (15-37) 27 U/L (15-37) Alanine Aminotransferase (ALT) 20 U/L (16-63) 21 U/L (16-63) Alkaline Phosphatase 97 U/L (46-116) 95 U/L (46-116) Troponin I Quantitative 0.190 ng/mL (0.000-0.055) 0.676 ng/mL (0.000-0.055) DK-Psh-P-Type Natriuretic Peptide > 33886 pg/mL (0-124) H Total Protein 6.4 g/dL (6.4-8.2) 6.8 g/dL (6.4-8.2) Albumin 2.8 g/dL (3.4-5.0) L 3.1 g/dL (3.4-5.0) L Albumin/Globulin Ratio 0.8 (1.0-1.7) L 0.8 (1.0-1.7) L Urine Collection Type Void Urine Color Yellow Urine Clarity Clear Urine pH 6.5 Urine Specific [place] 1.015 Urine Protein 100 mg/dL (NEG-TRACE) Urine Glucose (UA) Negative mg/dL (NEG) Urine Ketones (Stick) Negative mg/dL (NEG) Urine Blood Small (NEG) Urine Nitrite Negative (NEG) Urine Bilirubin Negative (NEG) Urine Urobilinogen Dipstick 1.0 mg/dL (0.2 mg/dL) Urine Leukocyte Esterase Negative (NEG) Urine RBC 1-2 /HPF (0-2) Urine WBC Rare /HPF (0-4) Urine Squamous Epithelial Cells Occ /LPF Urine Bacteria 0 /HPF (0-FEW) Urine Opiates Screen Pos (NEG) Urine Methadone Screen Neg (NEG) Urine Barbiturates Neg (NEG) Urine Phencyclidine Screen Neg (NEG) Urine Amphetamine/Methamphetamine Neg (NEG) Urine Benzodiazepines Screen Pos (NEG) Urine Cocaine Screen Neg (NEG) Urine Cannabinoids Screen Neg (NEG) Urine Ethyl Alcohol Neg (NEG) Laboratory Tests 11/28/18 19:15 11/29/18 02:55 Laboratory Tests 11/28/18 19:15 11/29/18 02:55 ECHOCARDIOGRAM ECHOCARDIOGRAM <Conclusion> The left ventricle is normal size. Left ventricle systolic function is low normal. The Ejection Fraction is 50-55%. There is a flattened septum consistent with right ventricle pressure overload. There is moderate concentric left ventricular hypertrophy. The right ventricle is mildly dilated. There is no significant aortic valvular stenosis. Doppler and Color Flow revealed mild aortic regurgitation. Doppler and Color-flow revealed trace mitral regurgitation. Doppler and Color Flow revealed trace tricuspid regurgitation. The PA pressure was estimated at 34 mmHg. Doppler and Color Flow revealed mild pulmonic valvular regurgitation. The ascending aorta is moderately dilated at 3.8 cm. DATE: 10/30/18 1437 STRESS TEST STRESS TEST Conclusion 1. No evidence of EKG changes with stress testing. 2. Normal perfusion at stress/rest. 3. Low risk study. 4. EF > 60%. DATE: 04/29/17 1352 HEART CATH HEART CATH CORONARY ANGIOGRAPHY: LM is a large caliber vessel with normal angiographic appearance. LAD is a large caliber vessel with normal angiographic appearance. Ramus is a moderate caliber vessel with normal angiographic appearance. LCx is a moderate caliber non-dominant vessel with normal angiographic appearance. OM1 is a moderate caliber vessel with normal angiographic appearance. RCA is a large caliber dominant vessel with normal angiographic appearance. RPDA is a moderate caliber vessels with normal angiographic appearance. Conclusion 1. No significant obstructive coronary artery disease. 2. Elevated left sided filling pressures. Recommendations Aggressive Medical Therapy DATE: 05/10/17 1447 ASSESSMENT/PLAN ASSESSMENT/PLAN 1. Acute respiratory failure with large right pleural effusion. s/p thoracentesis 2. Malignant HTN; now controlled 3. Mild troponin elevation; highest 0.676. Most probably type II, demand ischemia in the setting of uncontrolled hypertension and renal failure. Cath 04/29 without significant obstructive disease as noted above. Recent echo with preserved LV systolic function with an EF of 50-55%. 4. Acute on chronic diastolic HF; induced by uncontrolled hypertension and missed PD 5. ESRD; recently transitioned to PD due to pain in the fistula during HD. Has missed last 2 days of PD 6. Hx of CVA 7. Ascites; s/p previous paracentesis 8. Noncompliance Recommendations ASA Continue with home antiHTN therapy including Coreg, Norvasc, hydralazine. and clonidine. Allergy to ACEi. Monitor to assess need for therapy titration. PRN hydralazine IV Fluid off loading via HD PRN Will rescheduled outpatient MPI. Supportive care Encouraged medical compliance ANA HOOKER MD 11/29/18 1618: CARDIAC CONSULT ASSESSMENT/PLAN ASSESSMENT/PLAN Patient seen and examined. Agree with LANDFILL GAS COLLECTION OPERATOR's assessment and plan. Slight troponin elevation probably demand ischemia. Recent cardiac catheterization did not show any significant coronary disease. Recent 2-D echo showed normal LV systolic function. Blood pressure better controlled since admission. Acute on chronic diastolic heart failure precipitated by uncontrolled hypertension. Continue fluid removal with dialysis per nephrology team. Thank you for your consultation. ELKIN SMITH APRN Nov 29, 2018 14:20 ANA HOOKER MD Nov 29, 2018 16:18
--- NOTE | 2018-11-29 15:40 | RAD ---
Ultrasound-guided right-sided thoracentesis 11/29/2018 3:36 PM Indication: RIGHT PLEURAL EFFUSION Procedure: Informed consent was obtained. A timeout procedure was performed. Sonographic evaluation of the right chest was performed demonstrating moderate pleural effusion. The right posterior chest was prepped and draped in sterile fashion. 1% lidocaine without epinephrine was administered for local anesthesia. Real-time ultrasonographic guidance was used in passing a 5 [place] AOT Bedding Super Holdingseh catheter into the right pleural space. 2.2 L of serosanguineous pleural fluid was removed. Samples of fluid were sent to the lab for further evaluation per ordering physician request. The catheter was removed and pressure held to achieve hemostasis. A sterile dressing was applied. No immediate complications were identified. The patient tolerated the procedure well. Impression: Right sided ultrasound-guided thoracentesis
[2018-11-29] MEDS ORDERED: GENTAMICIN 0.1% TOPICAL OINTMENT 15GM TUBE. TP PRN (17:45)
[2018-11-29] MEDS: PATCH REMOVAL. MC SCH (21:00)
[2018-11-29] MEDS: HYDROcodone/APAP 5/325MG 1 TAB TABLET PO PRN (23:15)
[2018-11-30 03:08] VITALS: BP 169/112
--- NOTE | 2018-11-30 03:40 | RAD ---
EXAM: CHEST ONE VIEW. HISTORY: Status post thoracentesis. COMPARISON: 11/28/2018. FINDINGS: A frontal view of the chest is obtained. The right pleural effusion is nearly completely aspirated. There is no pneumothorax. Mild atelectasis or edema persists in the right greater than left bases. There is a calcified granuloma on the left. There is no pneumothorax or pleural effusion. The heart is moderately enlarged. Anterior cervical discectomy and fusion changes are noted. IMPRESSION: 1. No pneumothorax status post thoracentesis. 2. Moderate cardiomegaly. Mild pulmonary edema versus basilar atelectasis. Electronically signed by: Negro Aleman MD (11/30/2018 3:37 AM) [facility]
[2018-11-30 07:00] VITALS: BP 156/109
[2018-11-30] MEDS: LIDOCAINE (700MG/PATCH) PATCH. TD SCH (07:58)
[2018-11-30] MEDS: CARVEDILOL 6.25 MG TABLET. PO SCH ×2 (07:59→16:34)
[2018-11-30] MEDS: cloNIDine HCL 0.1 MG TABLET PO SCH ×3 (08:00→20:50)
[2018-11-30] MEDS: amLODIPine BESYLATE 10 MG TABLET PO SCH (08:00)
[2018-11-30] MEDS: FERROUS SULFATE 325 MG TABLET. PO SCH ×2 (08:00→16:34)
[2018-11-30] MEDS: FUROSEMIDE 40 MG TABLET. PO SCH ×2 (08:01→13:37)
[2018-11-30] MEDS: CETIRIZINE HCL 10 MG TABLET. PO SCH (08:01)
[2018-11-30] MEDS: hydrALAZINE 25 MG TABLET PO SCH ×3 (08:02→20:51)
[2018-11-30] MEDS: CALCIUM CARB/VIT D3 500/200 TABLET. PO SCH ×2 (08:02→16:33)
--- NOTE | 2018-11-30 09:22 | PDOC ---
PULMONARY PROGRESS NOTES Subjective s/p right thoracentesis 11/29 feels better Vitals Vital Signs Date Time Temp Pulse Resp B/P (MAP) Pulse Ox O2 Delivery O2 Flow Rate FiO2 11/30/18 08:03 63 164/102 11/30/18 07:00 98.1 16 95 Room Air 98.1 11/30/18 03:08 2.0 General: Alert, No acute distress Lungs: Other (decrease right) Cardiovascular: S1, S2 Abdomen: Soft, Other Neuro Exam: Alert Extremities: No Edema, Other Labs Laboratory Tests Test 11/28/18 19:15 11/28/18 21:40 11/28/18 22:30 11/29/18 02:55 White Blood Count 4.8 x10^3/uL (4.0-11.0) 7.0 x10^3/uL (4.0-11.0) Red Blood Count 4.71 x10^6/uL (4.30-5.70) 4.89 x10^6/uL (4.30-5.70) Hemoglobin 13.6 g/dL (13.0-17.5) 14.2 g/dL (13.0-17.5) Hematocrit 40.9 % (39.0-53.0) 42.3 % (39.0-53.0) Mean Corpuscular Volume 87 fL (79-100) 87 fL (79-100) Mean Corpuscular Hemoglobin 29 pg (25-35) 29 pg (25-35) Mean Corpuscular Hemoglobin Concent 33 g/dL (31-37) 34 g/dL (31-37) Red Cell Distribution Width 17.5 % (11.5-14.5) 17.4 % (11.5-14.5) Platelet Count 209 x10^3/uL (140-400) 253 x10^3/uL (140-400) Neutrophils (%) (Auto) 79 % (31-73) 81 % (31-73) Lymphocytes (%) (Auto) 9 % (24-48) 9 % (24-48) Monocytes (%) (Auto) 9 % (0-9) 9 % (0-9) Eosinophils (%) (Auto) 2 % (0-3) 1 % (0-3) Basophils (%) (Auto) 1 % (0-3) 1 % (0-3) Neutrophils # (Auto) 3.8 x10^3/uL (1.8-7.7) 5.7 x10^3/uL (1.8-7.7) Lymphocytes # (Auto) 0.4 x10^3/uL (1.0-4.8) 0.6 x10^3/uL (1.0-4.8) Monocytes # (Auto) 0.4 x10^3/uL (0.0-1.1) 0.6 x10^3/uL (0.0-1.1) Eosinophils # (Auto) 0.1 x10^3/uL (0.0-0.7) 0.0 x10^3/uL (0.0-0.7) Basophils # (Auto) 0.0 x10^3/uL (0.0-0.2) 0.0 x10^3/uL (0.0-0.2) Sodium Level 141 mmol/L (136-145) 142 mmol/L (136-145) Potassium Level 3.9 mmol/L (3.5-5.1) 3.7 mmol/L (3.5-5.1) Chloride Level 103 mmol/L (98-107) 103 mmol/L (98-107) Carbon Dioxide Level 26 mmol/L (21-32) 25 mmol/L (21-32) Anion Gap 12 (6-14) 14 (6-14) Blood Urea Nitrogen 84 mg/dL (8-26) 94 mg/dL (8-26) Creatinine 7.0 mg/dL (0.7-1.3) 7.1 mg/dL (0.7-1.3) Estimated GFR (Cockcroft-Gault) 10.0 9.8 BUN/Creatinine Ratio 12 (6-20) 13 (6-20) Glucose Level 100 mg/dL (70-99) 123 mg/dL (70-99) Calcium Level 7.7 mg/dL (8.5-10.1) 8.0 mg/dL (8.5-10.1) Total Bilirubin 0.8 mg/dL (0.2-1.0) 0.9 mg/dL (0.2-1.0) Aspartate Amino Transf (AST/SGOT) 31 U/L (15-37) 27 U/L (15-37) Alanine Aminotransferase (ALT/SGPT) 20 U/L (16-63) 21 U/L (16-63) Alkaline Phosphatase 97 U/L (46-116) 95 U/L (46-116) Troponin I Quantitative 0.190 ng/mL (0.000-0.055) 0.676 ng/mL (0.000-0.055) PY-Ilb-G-Type Natriuretic Peptide > 75730 pg/mL (0-124) Total Protein 6.4 g/dL (6.4-8.2) 6.8 g/dL (6.4-8.2) Albumin 2.8 g/dL (3.4-5.0) 3.1 g/dL (3.4-5.0) Albumin/Globulin Ratio 0.8 (1.0-1.7) 0.8 (1.0-1.7) Urine Collection Type Void Urine Color Yellow Urine Clarity Clear Urine pH 6.5 Urine Specific [place] 1.015 Urine Protein 100 mg/dL (NEG-TRACE) Urine Glucose (UA) Negative mg/dL (NEG) Urine Ketones (Stick) Negative mg/dL (NEG) Urine Blood Small (NEG) Urine Nitrite Negative (NEG) Urine Bilirubin Negative (NEG) Urine Urobilinogen Dipstick 1.0 mg/dL (0.2 mg/dL) Urine Leukocyte Esterase Negative (NEG) Urine RBC 1-2 /HPF (0-2) Urine WBC Rare /HPF (0-4) Urine Squamous Epithelial Cells Occ /LPF Urine Bacteria 0 /HPF (0-FEW) Urine Opiates Screen Pos (NEG) Urine Methadone Screen Neg (NEG) Urine Barbiturates Neg (NEG) Urine Phencyclidine Screen Neg (NEG) Urine Amphetamine/Methamphetamine Neg (NEG) Urine Benzodiazepines Screen Pos (NEG) Urine Cocaine Screen Neg (NEG) Urine Cannabinoids Screen Neg (NEG) Urine Ethyl Alcohol Neg (NEG) Nasal Screen MRSA (PCR) Negative (Negative) Medications Active Scripts Medications Dose Route/Sig Max Daily Dose Days Date Category Doxazosin Mesylate 4 Mg Tablet 4 Mg PO HS 11/29/18 Reported Carvedilol (Carvedilol) 12.5 Mg Tablet 12.5 Mg PO BIDWMEALS 11/29/18 Reported Clonidine Hcl 0.2 Mg Tablet 0.2 Mg PO BID 11/29/18 Reported Alprazolam 0.25 Mg Tablet 1 Tab PO PRN DAILY PRN 11/29/18 Reported Cymbalta (Duloxetine Hcl) 30 Mg Capsule. 1 Cap PO DAILY 11/29/18 Reported Potassium Chloride 20 Meq Tablet.er 20 Meq PO DAILY 11/29/18 Reported Hydralazine Hcl 50 Mg Tablet 1 Tab PO BID 11/29/18 Reported Colace (Docusate Sodium) 100 Mg Capsule 100 Mg PO DAILY PRN 10/14/18 Rx Polyethylene Glycol 3350 17 Gm Powd.pack 17 Gm PO DAILY PRN 10/14/18 Rx Lidocaine PATCH (Lidocaine) 1 Each Adh..patch 1 Patch TD DAILY 30 10/10/18 Rx Proair Hfa (Albuterol Sulfate) 8.5 Gm Hfa.aer.ad 2.5 Mg NEB PRN Q4HRS PRN 30 10/10/18 Rx Cetirizine Hcl 10 Mg Tablet 10 Mg PO DAILY 30 10/10/18 Rx Furosemide 40 Mg Tablet 40 Mg PO BID92 30 01/31/18 Rx Oyster Shell 500 Mg + Vit D Tb (Calcium Carbonate/Vitamin D3) 1 Each Tablet 1 Tab PO BIDWMEALS 30 01/31/18 Rx Aspirin Ec (Aspirin) 325 Mg Tablet. 325 Mg PO [id number] 30 10/25/17 Rx Impression . 1. Acute hypoxic respiratory failure secondary to recurrent right-sided pleural effusion. 2. Recurrent right-sided pleural effusion, likely etiology includes a combination of acute diastolic heart failure from hypertensive emergency and also likely possibility of leakage of peritoneal fluid into the right pleural space. 3. End-stage renal disease, on peritoneal dialysis. 4. No significant tobacco history. Plan . 1. s/p IR directed right-sided thoracentesis. 2. Discussed with the patient and he would benefit from hemodialysis. 3. Follow up chest x-ray post thoracentesis with resolution of right effusion. mild CHF 4. Continue present oxygen until thoracentesis is done. 5. To prevent long-term reaccumulation of right-sided effusion. He would be better off with hemodialysis. 6. Discussed with RN.and FLACO Shah MD Nov 30, 2018 09:22
--- NOTE | 2018-11-30 09:48 | PDOC ---
SUBJECTIVE ROS No complaints, today agreeable to transition to HD OBJECTIVE Vital Signs Vital Signs Date Time Temp Pulse Resp B/P (MAP) Pulse Ox O2 Delivery O2 Flow Rate FiO2 11/30/18 08:03 63 164/102 11/30/18 07:00 98.1 16 95 Room Air 98.1 11/30/18 03:08 2.0 I & 0 Intake and Output 11/30/18 06:59 Intake Total 1150 ml Output Total 400 ml Balance 750 ml Intake Oral 1030 ml IV Total 120 ml Output Urine Total 400 ml PHYSICAL EXAM Physical Exam GENERAL: NAD HEENT: OM moist NECK: Supple CARDIOVASCULAR: S1, S2. LUNGS: Diminished breath sounds right base, non labored ABDOMEN: Soft, has a peritoneal dialysis catheter. : No Zamorano. EXT: edema + NEURO : AxOx 3 DIAGNOSIS/ASSESSMENT Assessment & Plan ESRD- Has been on PD for past few months,Prior to that on Hd Non compliant with PD per OP Dialysis unit ([facility]) 3 rd hospitalization in last 2-3 weeks, was seen by Dr. Bhat last week, continued on PD HD yesterday , had discussion with Pt approx 2 week back and again yesterday to swirch to HD - but Pt refused Dr. Rowan had called Dr. Bhat (Primary Bundle Clerk)- also recommends to switch to HD and leave PD catheter for Ascites Pt agreeable now, will schedule TTS schedule while in patient SW Consult for OP chair time HTN - stable Continue home antihypertensives Right pleural effusion- s/p Thoracentesis on 11/29- 2.2 lts removed Discussed A/P with Pt and RN COMMENT/RELEVANT DATA Meds Current Medications Medications (Trade) Dose Ordered Sig/Sascha Start Time Stop Time Status Last Admin Dose Admin Acetaminophen (Tylenol) 650 mg PRN Q4HRS PRN 11/28/18 20:45 11/29/18 20:44 DC Acetaminophen/ Hydrocodone Bitart (Lortab 5/325) 1 tab PRN Q6HRS PRN 11/29/18 22:15 11/29/18 23:15 1 TAB Amlodipine Besylate (Norvasc) 10 mg DAILY 11/29/18 11:00 11/30/18 08:03 10 MG Artificial Tears (Artificial Tears) 1 drop PRN Q15MIN PRN 11/29/18 12:15 Calcium/Vitamin D (Oscal D 500mg/ 200uts) 1 tab BIDWMEALS 11/29/18 11:00 11/30/18 08:03 1 TAB Carvedilol (Coreg) 6.25 mg 1X ONCE 11/29/18 10:15 11/29/18 10:16 UNV Cetirizine HCl (ZyrTEC) 10 mg DAILY 11/29/18 11:00 11/30/18 08:03 10 MG Clonidine HCl (Catapres) 0.1 mg 1X ONCE 11/29/18 10:15 11/29/18 10:16 DC 11/29/18 10:32 0.1 MG Diphenhydramine HCl (Benadryl) 25 mg 1X PRN PRN 11/29/18 10:30 11/30/18 10:29 Docusate Sodium (Colace) 100 mg DAILY PRN 11/29/18 09:45 Ferrous Sulfate (Feosol) 325 mg BIDWMEALS 11/29/18 12:00 11/30/18 08:03 325 MG Furosemide (Lasix) 40 mg 1X ONCE 11/29/18 10:15 11/29/18 10:16 DC 11/29/18 10:32 40 MG Gentamicin Sulfate (Garamycin) 1 ronald PRN DAILY PRN 11/29/18 17:45 Hydralazine HCl (Apresoline Inj) 10 mg 1X ONCE 11/28/18 19:30 11/28/18 19:31 DC 11/28/18 19:49 10 MG Hydralazine HCl (Apresoline) 75 mg 1X ONCE 11/29/18 10:15 11/29/18 10:16 DC 11/29/18 10:32 75 MG Info (PHARMACY MONITORING -- do not chart) 1 each PRN DAILY PRN 11/29/18 10:30 UNV Lidocaine (Lidoderm) 1 patch DAILY 11/29/18 11:00 Miscellaneous (Lidoderm Patch Removal) 1 ea QHS 11/29/18 21:00 Morphine Sulfate (Morphine Sulfate) 4 mg PRN Q2HR PRN 11/28/18 20:45 11/29/18 20:44 DC 11/29/18 13:29 4 MG Multi-Ingred Cream/Lotion/Oil/ Oint (Artificial Tears Eye Ointment) 1 ronald PRN Q1HR PRN 11/29/18 09:15 11/29/18 12:06 DC 11/29/18 10:32 1 RONALD Nicardipine HCl 50 mg/Sodium Chloride 250 ml @ 25 mls/hr CONT PRN 11/29/18 08:00 11/29/18 08:09 25 MLS/HR Ondansetron HCl (Zofran) 4 mg PRN Q8HRS PRN 11/28/18 20:45 11/29/18 20:44 DC Polyethylene Glycol (miraLAX PACKET) 17 gm DAILY PRN 11/29/18 09:45 Sodium Chloride 1,000 ml @ 400 mls/hr Q2H30M PRN 11/29/18 10:24 11/29/18 22:23 DC Results All relevant outside records, renal labs, imaging studies, telemetry/EKG's were reviewed. MAGDIEL VOGEL MD Nov 30, 2018 09:47
--- NOTE | 2018-11-30 09:53 | PDOC ---
PROGRESS NOTES Subjective Subjective less sob Objective Objective Vital Signs Date Time Temp Pulse Resp B/P (MAP) Pulse Ox O2 Delivery O2 Flow Rate FiO2 11/30/18 08:03 63 164/102 11/30/18 07:00 98.1 16 95 Room Air 98.1 11/30/18 03:08 2.0 Intake and Output 11/30/18 06:59 Intake Total 1150 ml Output Total 400 ml Balance 750 ml Intake Oral 1030 ml IV Total 120 ml Output Urine Total 400 ml Physical Exam Abdomen: Soft Heart: Regular rate Extremities: No clubbing General: Alert Lungs: Other (dec breath sounds rt side) MUSCULOSKELETAL: No deformity, No swelling Psych/Mental Status: Mood NL Skin: No breakdown Diagnosis Problem List Problems Medical Problems: (1) Acute on chronic diastolic (congestive) heart failure Status: Acute (2) ESRD (end stage renal disease) on dialysis Status: Acute (3) Hypoxia Status: Acute Assessment Assessment Problems Medical Problems: (1) Acute on chronic diastolic (congestive) heart failure Status: Acute (2) ESRD (end stage renal disease) on dialysis Status: Acute (3) Hypoxia Status: Acute FINAL IMPRESSION: 1. Recurrent right pleural effusion, probably related to his peritoneal dialysis fluid. 2. End-stage renal disease, on peritoneal dialysis. 3. Hypertension, malignant. PLAN: Thoracocentesis 2 L removed from rt pleura.11/29/18 Hemodialyses yesterday. spoke with Pulmonary and renal and pt about stopping PD and continuing HD. Plan Plan of Care Problems Medical Problems: (1) Acute on chronic diastolic (congestive) heart failure Status: Acute (2) ESRD (end stage renal disease) on dialysis Status: Acute (3) Hypoxia Status: Acute Comment Review of Relevant I have reviewed the following items benjamin (where applicable) has been applied. Medications Current Medications Acetaminophen/ Hydrocodone Bitart (Lortab 5/325) 1 tab PRN Q6HRS PRN PO MODERATE PAIN 4-6 Last administered on 11/29/18at 23:15; Start 11/29/18 at 22:15 Amlodipine Besylate (Norvasc) 10 mg DAILY PO Last administered on 11/30/18at 08:03; Start 11/29/18 at 11:00 Artificial Tears (Artificial Tears) 1 drop PRN Q15MIN PRN OU DRY EYE; Start 11/29/18 at 12:15 Calcium/Vitamin D (Oscal D 500mg/ 200uts) 1 tab BIDWMEALS PO Last administered on 11/30/18 08:03; Start 11/29/18 at 11:00 Carvedilol (Coreg) 6.25 mg 1X ONCE PO ; Start 11/29/18 at 10:15; Stop 11/29/18 at 10:16; Status UNV Carvedilol (Coreg) 6.25 mg BIDWMEALS PO Last administered on 11/30/18at 08:03; Start 11/29/18 at 12:00 Cetirizine HCl (ZyrTEC) 10 mg DAILY PO Last administered on 11/30/18at 08:03; Start 11/29/18 at 11:00 Clonidine HCl (Catapres) 0.1 mg 1X ONCE PO Last administered on 11/29/18at 10:32; Start 11/29/18 at 10:15; Stop 11/29/18 at 10:16; Status DC Clonidine HCl (Catapres) 0.1 mg TID PO Last administered on 11/30/18at 08:03; Start 11/29/18 at 14:00 Diphenhydramine HCl (Benadryl) 25 mg 1X PRN PRN IV ITCHING; Start 11/29/18 at 10:30; Stop 11/30/18 at 10:29 Diphenhydramine HCl (Benadryl) 25 mg 1X PRN PRN IV ITCHING; Start 11/29/18 at 10:30; Stop 11/30/18 at 10:29 Ferrous Sulfate (Feosol) 325 mg BIDWMEALS PO Last administered on 11/30/18at 08:03; Start 11/29/18 at 12:00 Furosemide (Lasix) 40 mg 1X ONCE PO Last administered on 11/29/18at 10:32; Start 11/29/18 at 10:15; Stop 11/29/18 at 10:16; Status DC Furosemide (Lasix) 40 mg BID92 PO Last administered on 11/30/18at 08:03; Start 11/29/18 at 14:00 Gentamicin Sulfate (Garamycin) 1 ronald DAILY TP ; Start 11/29/18 at 11:30; Stop 11/29/18 at 17:48; Status DC Gentamicin Sulfate (Garamycin) 1 ronald PRN DAILY PRN TP CCPD; Start 11/29/18 at 17:45 Hydralazine HCl (Apresoline) 75 mg 1X ONCE PO Last administered on 11/29/18at 10:32; Start 11/29/18 at 10:15; Stop 11/29/18 at 10:16; Status DC Hydralazine HCl (Apresoline) 75 mg TID PO Last administered on 11/30/18at 08:03; Start 11/29/18 at 14:00 Info (PHARMACY MONITORING -- do not chart) 1 each PRN DAILY PRN MC SEE COMMENTS; Start 11/29/18 at 10:30 Info (PHARMACY MONITORING -- do not chart) 1 each PRN DAILY PRN MC SEE COMMENTS; Start 11/29/18 at 10:30; Status UNV Lidocaine (Lidoderm) 1 patch DAILY TD ; Start 11/29/18 at 11:00 Miscellaneous (Lidoderm Patch Removal) 1 ea QHS MC ; Start 11/29/18 at 21:00 Sodium Chloride 1,000 ml @ 400 mls/hr Q2H30M PRN IV PATENCY; Start 11/29/18 at 10:24; Stop 11/29/18 at 22:23; Status DC Sodium Chloride 1,000 ml @ 1,000 mls/hr Q1H PRN IV hypotension; Start 11/29/18 at 10:24; Stop 11/29/18 at 16:23; Status DC Vitals/I & O Vital Sign - Last 24 Hours 11/29/18 11/29/18 11/29/18 11/29/18 10:00 10:32 10:32 10:32 Pulse 78 80 80 81 Resp 18 B/P (MAP) 140/84 (102) 141/85 141/85 141/85 Pulse Ox 100 O2 Delivery Nasal Cannula O2 Flow Rate 2.0 11/29/18 11/29/18 11/29/18 11/29/18 11:00 12:00 12:01 13:00 Temp 97.9 97.9 Pulse 78 83 88 71 Resp 18 18 20 B/P (MAP) 144/82 (102) 137/95 (109) 120/78 124/86 (99) Pulse Ox 98 100 98 O2 Delivery Nasal Cannula Nasal Cannula Nasal Cannula O2 Flow Rate 2.0 2.0 2.0 11/29/18 11/29/18 11/29/18 8/20/19 13:29 17:45 18:05 18:21 Temp 97.7 97.7 Pulse 71 85 Resp 18 20 B/P (MAP) 163/110 (127) 163/110 Pulse Ox 97 97 91 O2 Delivery Nasal Cannula Nasal Cannula Room Air O2 Flow Rate 2.0 2.0 11/29/18 11/29/18 11/29/18 11/29/18 18:22 19:15 19:33 21:40 Temp 97.5 97.5 Pulse 68 69 Resp 18 B/P (MAP) 155/101 (119) 155/101 Pulse Ox 95 O2 Delivery Nasal Cannula Nasal Cannula Nasal Cannula O2 Flow Rate 2.0 2.0 2.0 11/29/18 11/29/18 11/29/18 11/30/18 21:40 22:50 23:15 03:08 Temp 98.3 97.9 98.3 97.9 Pulse 69 67 67 Resp 18 18 B/P (MAP) 155/101 156/100 (118) 169/112 (131) Pulse Ox 97 O2 Delivery Nasal Cannula Nasal Cannula Nasal Cannula O2 Flow Rate 2.0 2.0 2.0 11/30/18 11/30/18 11/30/18 11/30/18 03:08 07:00 08:03 08:03 Temp 98.1 98.1 Pulse 67 65 63 63 Resp 16 B/P (MAP) 169/112 156/109 (125) 169/102 164/102 Pulse Ox 95 O2 Delivery Room Air 11/30/18 11/30/18 08:03 08:03 Pulse 63 63 B/P (MAP) 164/102 164/102 Intake and Output 11/29/18 11/29/18 11/30/18 14:59 22:59 06:59 Intake Total 120 ml 1030 ml Output Total 200 ml 200 ml Balance -80 ml 830 ml Nutrition Consultation Dietary Evaluation: Recommendations by RD: Increase Calorie Intake, Protein supplementation Comments: REC liberalize diet to regular, discussed w/RN, approved w/ REC Nepro BID (butter pecan), lunch and dinner Expected Outcomes/Goals: PO intake to meet >75% est needs Malnutrition Findings: Food and Nutrition Intake (Mod: <75% est energy req 7days Weight Status: Appropriate ROSALINO SERRANO MD Nov 30, 2018 09:53
[2018-11-30 10:53] VITALS: BP 101/64
--- NOTE | 2018-11-30 12:27 | NUR ---
SS following up with discharge planning. Pt's RN contacted SS and reported that pt needs outpatient dialysis set up in the community. SS phoned and faxed referral to [facility]. SS currently awaiting serology labs at this time. SS will continue to follow for discharge planning.
--- NOTE | 2018-11-30 12:37 | PDOC ---
MARYLOU PETERSON LIQUEFACTION SUPERVISOR 11/30/18 1237: CARDIO Progress Notes Date and Time Date of Service 11/30/2018 Time of Evaluation 1220 Subjective Subjective: No Chest Pain, No shortness of breath, No Palpitations Vitals Vitals Vital Signs Date Time Temp Pulse Resp B/P (MAP) Pulse Ox O2 Delivery O2 Flow Rate FiO2 11/30/18 10:53 97.7 60 16 101/64 (76) 96 Nasal Cannula 2.0 97.7 Weight Weight [ ] Input and Output Intake and Output Intake and Output 11/30/18 07:00 Intake Total 1150 ml Output Total 400 ml Balance 750 ml Intake Oral 1030 ml IV Total 120 ml Output Urine Total 400 ml Physical Exam HEENT: Neck Supple W Full Motion Chest: Symmetric LUNGS: Other (basilar crackles) Heart: RRR (SR) Abdomen: Soft N/T Extremities: No Calf Tenderness, Other (2+ bvilateral LE pitting edema) Neurology: alert, oriented, follow commands Assessment Assessment 1. Acute respiratory failure with large right pleural effusion. s/p thoracentesis 2. Malignant HTN; controlled 3. Acute on chronic diastolic HF; induced by uncontrolled hypertension and missed PD. Compensated 4. ESRD; recently transitioned to PD due to pain in the fistula during HD. Has missed last 2 days of PD 5. Mild troponin elevation; peaked 0.676. Recent EF at 50-55% suspect type 2 demand mediated with culprits above Cath 04/29 nor significant obstructive disease. CP free. 6. Noncompliance 7. Arrhythmia: periods of junctional rhythm no significant bradycardia likely metabolic induced with uremia Recommendations ASA Continue with home antiHTN therapy including Coreg, Norvasc, hydralazine. and clonidine. Allergy to ACEi. Fluid off loading via HD and has agreed to use LAV fistula Will reschedule outpatient MPI. Reinforced medical compliance ANA HOOKER MD 11/30/18 1639: CARDIO Progress Notes Assessment Assessment Patient seen and examined. Agree with ACID REMOVER's assessment and plan. s/p thoracentesis, feeling better Slight troponin elevation probably demand ischemia Acute on chronic diastolic heart failure better compensated Continue dialysis per nephrology team Plan outpatient ischemic ventilation MARYLOU PETERSON APRN Nov 30, 2018 12:37 ANA HOOKER MD Nov 30, 2018 16:39
[2018-11-30 15:00] VITALS: BP 97/52
[2018-11-30] MEDS: HYDROcodone/APAP 5/325MG 1 TAB TABLET PO PRN ×2 (16:38→23:49)
[2018-11-30 19:25] VITALS: BP 114/74
[2018-11-30] MEDS: PATCH REMOVAL. MC SCH (20:49)
[2018-11-30 23:47] VITALS: BP 127/87
[2018-12-01 03:34] VITALS: BP 143/90
[2018-12-01 07:00] VITALS: BP 161/104
[2018-12-01] MEDS ORDERED: DIALYSIS PATIENT. MC PRN ×2 (07:45)
[2018-12-01] MEDS: cloNIDine HCL 0.1 MG TABLET PO SCH ×3 (09:00→20:13)
[2018-12-01] MEDS: hydrALAZINE 25 MG TABLET PO SCH ×3 (09:00→20:12)
[2018-12-01] MEDS: FUROSEMIDE 40 MG TABLET. PO SCH ×2 (09:00→12:24)
--- NOTE | 2018-12-01 09:23 | PDOC ---
SUBJECTIVE ROS Seen on HD, stats just feeling tired OBJECTIVE Vital Signs Vital Signs Date Time Temp Pulse Resp B/P (MAP) Pulse Ox O2 Delivery O2 Flow Rate FiO2 12/01/18 07:00 97.4 61 18 161/104 (123) 99 Nasal Cannula 2.0 97.4 I & 0 Intake and Output 12/01/18 06:59 Intake Total 596 ml Output Total 250 ml Balance 346 ml Intake Oral 596 ml Output Urine Total 250 ml PHYSICAL EXAM Physical Exam GENERAL: NAD HEENT: OM moist NECK: Supple CARDIOVASCULAR: S1, S2. LUNGS: Diminished breath sounds right base, non labored ABDOMEN: Soft, has a peritoneal dialysis catheter. : No Zamorano. EXT: edema + NEURO : AxOx 3 DIAGNOSIS/ASSESSMENT Assessment & Plan ESRD- Under Dr. Bhat's care Switched back to HD from PD seen on HD, tolerating well, continue as ordered , AMARA Cheatham OP chair time per Sw HTN - stable Continue home antihypertensives Right pleural effusion- s/p Thoracentesis on 11/29- 2.2 lts removed Ascites- has PD catheter, to leave it in per Dr. Bhat COMMENT/RELEVANT DATA Meds Current Medications Medications (Trade) Dose Ordered Sig/Sascha Start Time Stop Time Status Last Admin Dose Admin Acetaminophen (Tylenol) 650 mg PRN Q4HRS PRN 11/28/18 20:45 11/29/18 20:44 DC Acetaminophen/ Hydrocodone Bitart (Lortab 5/325) 1 tab PRN Q6HRS PRN 11/29/18 22:15 11/30/18 23:49 1 TAB Amlodipine Besylate (Norvasc) 10 mg DAILY 11/29/18 11:00 11/30/18 08:03 10 MG Artificial Tears (Artificial Tears) 1 drop PRN Q15MIN PRN 11/29/18 12:15 Calcium/Vitamin D (Oscal D 500mg/ 200uts) 1 tab BIDWMEALS 11/29/18 11:00 11/30/18 16:40 1 TAB Carvedilol (Coreg) 6.25 mg 1X ONCE 11/29/18 10:15 11/29/18 10:16 UNV Cetirizine HCl (ZyrTEC) 10 mg DAILY 11/29/18 11:00 11/30/18 08:03 10 MG Clonidine HCl (Catapres) 0.1 mg 1X ONCE 11/29/18 10:15 11/29/18 10:16 DC 11/29/18 10:32 0.1 MG Diphenhydramine HCl (Benadryl) 25 mg 1X PRN PRN 11/29/18 10:30 11/30/18 10:29 DC Docusate Sodium (Colace) 100 mg DAILY PRN 11/29/18 09:45 Ferrous Sulfate (Feosol) 325 mg BIDWMEALS 11/29/18 12:00 11/30/18 16:40 325 MG Furosemide (Lasix) 40 mg 1X ONCE 11/29/18 10:15 11/29/18 10:16 DC 11/29/18 10:32 40 MG Gentamicin Sulfate (Garamycin) 1 ronald PRN DAILY PRN 11/29/18 17:45 Hydralazine HCl (Apresoline Inj) 10 mg 1X ONCE 11/28/18 19:30 11/28/18 19:31 DC 11/28/18 19:49 10 MG Hydralazine HCl (Apresoline) 75 mg 1X ONCE 11/29/18 10:15 11/29/18 10:16 DC 11/29/18 10:32 75 MG Info (PHARMACY MONITORING -- do not chart) 1 each PRN DAILY PRN 12/01/18 07:45 UNV Lidocaine (Lidoderm) 1 patch DAILY 11/29/18 11:00 Miscellaneous (Lidoderm Patch Removal) 1 ea QHS 11/29/18 21:00 Morphine Sulfate (Morphine Sulfate) 4 mg PRN Q2HR PRN 11/28/18 20:45 11/29/18 20:44 DC 11/29/18 13:29 4 MG Multi-Ingred Cream/Lotion/Oil/ Oint (Artificial Tears Eye Ointment) 1 ronald PRN Q1HR PRN 11/29/18 09:15 11/29/18 12:06 DC 11/29/18 10:32 1 RONALD Nicardipine HCl 50 mg/Sodium Chloride 250 ml @ 25 mls/hr CONT PRN 11/29/18 08:00 11/29/18 08:09 25 MLS/HR Ondansetron HCl (Zofran) 4 mg PRN Q8HRS PRN 11/28/18 20:45 8/20/19 20:44 DC Polyethylene Glycol (miraLAX PACKET) 17 gm DAILY PRN 11/29/18 09:45 Sodium Chloride 1,000 ml @ 400 mls/hr Q2H30M PRN 11/29/18 10:24 11/29/18 22:23 DC Lab Laboratory Tests Test 11/30/18 11:50 Hepatitis B Surface Antigen Nonreactive (Nonreactive) Hepatitis B Surface Antibody Reactive Hepatitis B Core Total Antibody Nonreactive (Nonreactive) Results All relevant outside records, renal labs, imaging studies, telemetry/EKG's were reviewed. MAGDIEL VOGEL MD Dec 01, 2018 09:23
--- NOTE | 2018-12-01 09:46 | PDOC ---
PROGRESS NOTES Subjective Subjective seen in dialysis Objective Objective Vital Signs Date Time Temp Pulse Resp B/P (MAP) Pulse Ox O2 Delivery O2 Flow Rate FiO2 12/01/18 07:00 97.4 61 18 161/104 (123) 99 Nasal Cannula 2.0 97.4 Intake and Output 12/01/18 06:59 Intake Total 596 ml Output Total 250 ml Balance 346 ml Intake Oral 596 ml Output Urine Total 250 ml Physical Exam Abdomen: Soft, Other (PD cathter present) Heart: Regular rate Extremities: No clubbing General: Alert Lungs: Other (dec breath sounds rt side) MUSCULOSKELETAL: No deformity, No swelling Psych/Mental Status: Mood NL Skin: No breakdown Diagnosis Problem List Problems Medical Problems: (1) Acute on chronic diastolic (congestive) heart failure Status: Acute (2) ESRD (end stage renal disease) on dialysis Status: Acute (3) Hypoxia Status: Acute Assessment Assessment Problems Medical Problems: (1) Acute on chronic diastolic (congestive) heart failure Status: Acute (2) ESRD (end stage renal disease) on dialysis Status: Acute (3) Hypoxia Status: Acute FINAL IMPRESSION: 1. Recurrent right pleural effusion, probably related to his peritoneal dialysis fluid. 2. End-stage renal disease, on peritoneal dialysis. 3. Hypertension, malignant. PLAN: dialysis today. home tomorrow? needs out Pt dialysis chair time. Thoracocentesis 2 L removed from rt pleura.11/29/18 spoke with Pulmonary and renal and pt about stopping PD and continuing HD. Plan Plan of Care Problems Medical Problems: (1) Acute on chronic diastolic (congestive) heart failure Status: Acute (2) ESRD (end stage renal disease) on dialysis Status: Acute (3) Hypoxia Status: Acute Comment Review of Relevant I have reviewed the following items benjamin (where applicable) has been applied. Labs Laboratory Tests Test 11/30/18 11:50 Hepatitis B Surface Antigen Nonreactive (Nonreactive) Hepatitis B Surface Antibody Reactive Hepatitis B Core Total Antibody Nonreactive (Nonreactive) Medications Current Medications Info (PHARMACY MONITORING -- do not chart) 1 each PRN DAILY PRN MC SEE COMMENTS; Start 12/01/18 at 07:45; Status UNV Info (PHARMACY MONITORING -- do not chart) 1 each PRN DAILY PRN MC SEE COMMENTS; Start 12/01/18 at 07:45; Status UNV Vitals/I & O Vital Sign - Last 24 Hours 11/30/18 11/30/18 11/30/18 11/30/18 10:53 13:39 13:39 15:00 Temp 97.7 97.7 97.7 97.7 Pulse 60 61 61 62 Resp 16 18 B/P (MAP) 101/64 (76) 118/73 118/73 97/52 (67) Pulse Ox 96 99 O2 Delivery Nasal Cannula Nasal Cannula O2 Flow Rate 2.0 2.0 11/30/18 11/30/18 11/30/18 11/30/18 16:40 16:40 17:51 19:25 Temp 97.5 97.5 Pulse 60 66 Resp 18 B/P (MAP) 112/80 114/74 (87) Pulse Ox 99 99 97 O2 Delivery Nasal Cannula Nasal Cannula Nasal Cannula O2 Flow Rate 2.0 2.0 2.0 11/30/18 11/30/18 11/30/18 11/30/18 20:51 20:51 20:55 23:47 Temp 97.5 97.5 Pulse 65 66 59 Resp 17 B/P (MAP) 114/74 114/74 127/87 (100) Pulse Ox 99 O2 Delivery Nasal Cannula Nasal Cannula O2 Flow Rate 2.0 2.0 11/30/18 12/01/18 12/01/18 12/01/18 23:49 01:10 03:34 07:00 Temp 97.4 97.4 97.4 97.4 Pulse 57 61 Resp 18 B/P (MAP) 143/90 (107) 161/104 (123) Pulse Ox 95 99 O2 Delivery Nasal Cannula Room Air Nasal Cannula O2 Flow Rate 2.0 2.0 2.0 Intake and Output 11/30/18 11/30/18 12/01/18 14:59 22:59 06:59 Intake Total 236 ml 240 ml 120 ml Output Total 250 ml Balance 236 ml -10 ml 120 ml Nutrition Consultation Dietary Evaluation: Recommendations by RD: Increase Calorie Intake, Protein supplementation Comments: REC liberalize diet to regular, discussed w/RN, approved w/MD REC Nepro BID (butter pecan), lunch and dinner Expected Outcomes/Goals: PO intake to meet >75% est needs Malnutrition Findings: Food and Nutrition Intake (Mod: <75% est energy req 7days Weight Status: Appropriate ROSALINO SERRANO MD Dec 01, 2018 09:46
--- NOTE | 2018-12-01 11:34 | NUR ---
SS following up with discharge planning. SS phoned and faxed serology labs to [facility]. SS currently awaiting chair time at this time. SS will continue to follow up with [facility].
[2018-12-01] MEDS: FERROUS SULFATE 325 MG TABLET. PO SCH ×2 (12:21→17:22)
[2018-12-01] MEDS: CALCIUM CARB/VIT D3 500/200 TABLET. PO SCH ×2 (12:22→17:22)
[2018-12-01] MEDS: CETIRIZINE HCL 10 MG TABLET. PO SCH (12:22)
[2018-12-01] MEDS: CARVEDILOL 6.25 MG TABLET. PO SCH ×2 (12:22→17:22)
[2018-12-01] MEDS: amLODIPine BESYLATE 10 MG TABLET PO SCH (12:23)
[2018-12-01] MEDS: HYDROcodone/APAP 5/325MG 1 TAB TABLET PO PRN ×2 (12:27→20:12)
[2018-12-01] MEDS: LIDOCAINE (700MG/PATCH) PATCH. TD SCH (12:29)
--- NOTE | 2018-12-01 14:01 | PDOC ---
PULMONARY PROGRESS NOTES Subjective s/p right thoracentesis 11/29 feels better Vitals Vital Signs Date Time Temp Pulse Resp B/P (MAP) Pulse Ox O2 Delivery O2 Flow Rate FiO2 12/01/18 12:28 Room Air 12/01/18 12:28 198/114 12/01/18 12:28 63 12/01/18 08:00 2.0 12/01/18 07:00 97.4 18 99 97.4 General: Alert, No acute distress Lungs: Other (decrease right) Cardiovascular: S1, S2 Abdomen: Soft, Other Neuro Exam: Alert Extremities: No Edema, Other Labs Laboratory Tests Test 11/30/18 11:50 Hepatitis B Surface Antigen Nonreactive (Nonreactive) Hepatitis B Surface Antibody Reactive Hepatitis B Core Total Antibody Nonreactive (Nonreactive) Medications Active Scripts Medications Dose Route/Sig Max Daily Dose Days Date Category Doxazosin Mesylate 4 Mg Tablet 4 Mg PO HS 11/29/18 Reported Carvedilol (Carvedilol) 12.5 Mg Tablet 12.5 Mg PO BIDWMEALS 11/29/18 Reported Clonidine Hcl 0.2 Mg Tablet 0.2 Mg PO BID 11/29/18 Reported Alprazolam 0.25 Mg Tablet 1 Tab PO PRN DAILY PRN 11/29/18 Reported Cymbalta (Duloxetine Hcl) 30 Mg Capsule.dr 1 Cap PO DAILY 11/29/18 Reported Potassium Chloride 20 Meq Tablet.er 20 Meq PO DAILY 11/29/18 Reported Hydralazine Hcl 50 Mg Tablet 1 Tab PO BID 11/29/18 Reported Colace (Docusate Sodium) 100 Mg Capsule 100 Mg PO DAILY PRN 10/14/18 Rx Polyethylene Glycol 3350 17 Gm Powd.pack 17 Gm PO DAILY PRN 10/14/18 Rx Lidocaine PATCH (Lidocaine) 1 Each Adh..patch 1 Patch TD DAILY 30 10/10/18 Rx Proair Hfa (Albuterol Sulfate) 8.5 Gm Hfa.aer.ad 2.5 Mg NEB PRN Q4HRS PRN 30 10/10/18 Rx Cetirizine Hcl 10 Mg Tablet 10 Mg PO DAILY 30 10/10/18 Rx Furosemide 40 Mg Tablet 40 Mg PO BID92 30 01/31/18 Rx Oyster Shell 500 Mg + Vit D Tb (Calcium Carbonate/Vitamin D3) 1 Each Tablet 1 Tab PO BIDWMEALS 30 01/31/18 Rx Aspirin Ec (Aspirin) 325 Mg Tablet. 325 Mg PO [id number] 30 10/25/17 Rx Impression . 1. Acute hypoxic respiratory failure secondary to recurrent right-sided pleural effusion. 2. Recurrent right-sided pleural effusion, likely etiology includes a combination of acute diastolic heart failure from hypertensive emergency and also likely possibility of leakage of peritoneal fluid into the right pleural space. 3. End-stage renal disease, on peritoneal dialysis. 4. No significant tobacco history. Plan . 1. s/p IR directed right-sided thoracentesis. 2. continue hemodialysis. 3. Follow up chest x-ray post thoracentesis with resolution of right effusion. mild CHF 4. Continue present oxygen 5. To prevent long-term reaccumulation of right-sided effusion. He would be better off with hemodialysis. 6. Discussed with RN.and DR Rowan, renal dc plans per PCP FLACO RAMESH MD Dec 01, 2018 14:01
[2018-12-01 15:00] VITALS: BP 137/92
[2018-12-01 19:25] VITALS: BP 103/69
[2018-12-01] MEDS: PATCH REMOVAL. MC SCH (20:15)
[2018-12-01] MEDS ORDERED: ALPR2TAB5 PO (20:15)
[2018-12-01] MEDS: ALPRAZolam 0.25 MG TABLET PO PRN (23:34)
[2018-12-01 23:42] VITALS: BP 152/96
[2018-12-02 03:35] VITALS: BP 125/89
[2018-12-02 07:00] VITALS: BP 152/99
[2018-12-02] MEDS: LIDOCAINE (700MG/PATCH) PATCH. TD SCH (09:00)
[2018-12-02] MEDS: amLODIPine BESYLATE 10 MG TABLET PO SCH (09:12)
[2018-12-02] MEDS: FERROUS SULFATE 325 MG TABLET. PO SCH ×2 (09:12→17:52)
[2018-12-02] MEDS: hydrALAZINE 25 MG TABLET PO SCH ×2 (09:12→14:00)
[2018-12-02] MEDS: FUROSEMIDE 40 MG TABLET. PO SCH ×2 (09:13→14:00)
[2018-12-02] MEDS: CARVEDILOL 6.25 MG TABLET. PO SCH ×2 (09:13→17:52)
[2018-12-02] MEDS: CALCIUM CARB/VIT D3 500/200 TABLET. PO SCH ×2 (09:13→17:52)
[2018-12-02] MEDS: CETIRIZINE HCL 10 MG TABLET. PO SCH (09:13)
[2018-12-02] MEDS: cloNIDine HCL 0.1 MG TABLET PO SCH ×2 (09:13→14:00)
[2018-12-02] MEDS: ALPRAZolam 0.25 MG TABLET PO PRN ×2 (09:19→17:55)
--- NOTE | 2018-12-02 09:49 | PDOC ---
PROGRESS NOTES Subjective Subjective anxiety attack last night Objective Objective Vital Signs Date Time Temp Pulse Resp B/P (MAP) Pulse Ox O2 Delivery O2 Flow Rate FiO2 12/02/18 09:14 65 12/02/18 07:00 98.2 18 152/99 (116) 98 Nasal Cannula 2.0 98.2 Intake and Output 12/02/18 07:00 Intake Total 260 ml Output Total 150 ml Balance 110 ml Intake Oral 260 ml Output Urine Total 150 ml Physical Exam Abdomen: Soft, Other (PD cathter present) Heart: Regular rate Extremities: No clubbing General: Alert Lungs: Other (dec breath sounds rt side) MUSCULOSKELETAL: No deformity, No swelling Neuro: Normal speech Psych/Mental Status: Mood NL Skin: No breakdown Diagnosis Problem List Problems Medical Problems: (1) Acute on chronic diastolic (congestive) heart failure Status: Acute (2) ESRD (end stage renal disease) on dialysis Status: Acute (3) Hypoxia Status: Acute Assessment Assessment Problems Medical Problems: (1) Acute on chronic diastolic (congestive) heart failure Status: Acute (2) ESRD (end stage renal disease) on dialysis Status: Acute (3) Hypoxia Status: Acute FINAL IMPRESSION: 1. Recurrent right pleural effusion, probably related to his peritoneal dialysis fluid. 2. End-stage renal disease, on peritoneal dialysis. 3. Hypertension, malignant. PLAN: dialysis out pt , waiting for dialysis chair time. d/c home after that xanax for anxiety Thoracocentesis 2 L removed from rt pleura.11/29/18 spoke with Pulmonary and renal and pt about stopping PD and continuing HD. Plan Plan of Care Problems Medical Problems: (1) Acute on chronic diastolic (congestive) heart failure Status: Acute (2) ESRD (end stage renal disease) on dialysis Status: Acute (3) Hypoxia Status: Acute Comment Review of Relevant I have reviewed the following items benjamin (where applicable) has been applied. Medications Current Medications Alprazolam (Xanax) 0.25 mg PRN Q8HRS PRN PO ANXIETY / AGITATION Last administered on 12/02/18at 09:19; Start 12/01/18 at 21:45 Vitals/I & O Vital Sign - Last 24 Hours 12/01/18 12/01/18 12/01/18 12/01/18 12:28 12:28 12:28 15:00 Temp 97.7 97.7 Pulse 63 66 Resp 18 B/P (MAP) 198/114 137/92 (107) Pulse Ox 95 O2 Delivery Room Air Nasal Cannula O2 Flow Rate 2.0 12/01/18 12/01/18 12/01/18 12/01/18 16:04 17:23 17:23 17:23 Pulse 69 66 66 B/P (MAP) 137/92 137/92 O2 Delivery Nasal Cannula O2 Flow Rate 2.0 12/01/18 12/01/18 12/01/18 12/01/18 19:25 20:00 20:13 20:13 Temp 97.7 97.7 Pulse 67 66 66 Resp 20 B/P (MAP) 103/69 (80) 137/92 137/92 Pulse Ox 96 O2 Delivery Nasal Cannula Nasal Cannula O2 Flow Rate 2.0 2.0 12/01/18 12/01/18 12/02/18 12/02/18 20:13 23:42 03:35 07:00 Temp 97.4 98.3 98.2 97.4 98.3 98.2 Pulse 58 58 59 Resp 17 18 18 B/P (MAP) 152/96 (114) 125/89 (101) 152/99 (116) Pulse Ox 96 98 98 O2 Delivery Nasal Cannula Nasal Cannula Nasal Cannula Nasal Cannula O2 Flow Rate 2.0 2.0 2.0 2.0 12/02/18 12/02/18 12/02/18 12/02/18 09:14 09:14 09:14 09:14 Pulse 65 65 65 65 Intake and Output 12/01/18 12/01/18 12/02/18 15:00 23:00 07:00 Intake Total 260 ml Output Total 150 ml Balance 110 ml Nutrition Consultation Dietary Evaluation: Recommendations by RD: Increase Calorie Intake, Protein supplementation Comments: REC liberalize diet to regular, discussed w/RN, approved w/MD REC Nepro BID (butter pecan), lunch and dinner Expected Outcomes/Goals: PO intake to meet >75% est needs Malnutrition Findings: Food and Nutrition Intake (Mod: <75% est energy req 7days Weight Status: Appropriate ROSALINO SERRANO MD Dec 02, 2018 09:49
[2018-12-02] MEDS ORDERED: AMLO10TA8 PO (09:54)
[2018-12-02 11:00] VITALS: BP 116/79
--- NOTE | 2018-12-02 11:07 | PDOC ---
PULMONARY PROGRESS NOTES Subjective s/p right thoracentesis 11/29 feels better Vitals Vital Signs Date Time Temp Pulse Resp B/P (MAP) Pulse Ox O2 Delivery O2 Flow Rate FiO2 12/02/18 09:14 65 12/02/18 07:00 98.2 18 152/99 (116) 98 Nasal Cannula 2.0 98.2 General: Alert, No acute distress Lungs: Other (decrease right) Cardiovascular: S1, S2 Abdomen: Soft, Other Neuro Exam: Alert Extremities: No Edema, Other Labs Laboratory Tests Test 11/30/18 11:50 Hepatitis B Surface Antigen Nonreactive (Nonreactive) Hepatitis B Surface Antibody Reactive Hepatitis B Core Total Antibody Nonreactive (Nonreactive) Medications Active Scripts Medications Dose Route/Sig Max Daily Dose Days Date Category Doxazosin Mesylate 4 Mg Tablet 4 Mg PO HS 11/29/18 Reported Carvedilol (Carvedilol) 12.5 Mg Tablet 12.5 Mg PO BIDWMEALS 11/29/18 Reported Clonidine Hcl 0.2 Mg Tablet 0.2 Mg PO BID 11/29/18 Reported Alprazolam 0.25 Mg Tablet 1 Tab PO PRN DAILY PRN 11/29/18 Reported Cymbalta (Duloxetine Hcl) 30 Mg Capsule. 1 Cap PO DAILY 11/29/18 Reported Potassium Chloride 20 Meq Tablet.er 20 Meq PO DAILY 11/29/18 Reported Hydralazine Hcl 50 Mg Tablet 1 Tab PO BID 11/29/18 Reported Colace (Docusate Sodium) 100 Mg Capsule 100 Mg PO DAILY PRN 10/14/18 Rx Polyethylene Glycol 3350 17 Gm Powd.pack 17 Gm PO DAILY PRN 10/14/18 Rx Lidocaine PATCH (Lidocaine) 1 Each Adh..patch 1 Patch TD DAILY 30 10/10/18 Rx Proair Hfa (Albuterol Sulfate) 8.5 Gm Hfa.aer.ad 2.5 Mg NEB PRN Q4HRS PRN 10/10/18 Rx Cetirizine Hcl 10 Mg Tablet 10 Mg PO DAILY 30 10/10/18 Rx Furosemide 40 Mg Tablet 40 Mg PO BID92 01/31/18 Rx Oyster Shell 500 Mg + Vit D Tb (Calcium Carbonate/Vitamin D3) 1 Each Tablet 1 Tab PO BIDWMEALS 30 01/31/18 Rx Aspirin Ec (Aspirin) 325 Mg Tablet. 325 Mg PO DAILYWBKFT 30 10/25/17 Rx Impression . 1. Acute hypoxic respiratory failure secondary to recurrent right-sided pleural effusion. 2. Recurrent right-sided pleural effusion, likely etiology includes a combination of acute diastolic heart failure from hypertensive emergency and also likely possibility of leakage of peritoneal fluid into the right pleural space. 3. End-stage renal disease, on peritoneal dialysis. 4. No significant tobacco history. Plan . 1. s/p IR directed right-sided thoracentesis. 2. continue hemodialysis. 3. Follow up chest x-ray post thoracentesis with resolution of right effusion. mild CHF 4. Continue present oxygen 5. To prevent long-term reaccumulation of right-sided effusion. He would be better off with hemodialysis. 6. Discussed with RN.and DR Rowan, renal dc plans per PCP FLACO RAMESH MD Dec 02, 2018 11:07
--- NOTE | 2018-12-02 11:11 | NUR ---
SS following up with discharge planning. Discharge order on the chart for home with home healthcare. SS contacted [facility] Admissions and requested update on chair time. [facility] reported that all records [facility], [address] [place], [place] [id number], . [facility] notified that pt had discharge order for today and chair time is needed. [facility] provided with SS contact information and stated they would contact SS once chair time is confirmed. SS met with pt to discuss home healthcare and pt reported to SS that it was not needed and declined home healthcare services. Pt's RN notified.
[2018-12-02] MEDS: HYDROcodone/APAP 5/325MG 1 TAB TABLET PO PRN ×2 (11:43→17:55)
--- NOTE | 2018-12-02 12:42 | PDOC ---
SUBJECTIVE ROS c/o having anxiety which causes CP Recd xanax OBJECTIVE Vital Signs Vital Signs Date Time Temp Pulse Resp B/P (MAP) Pulse Ox O2 Delivery O2 Flow Rate FiO2 12/02/18 11:00 97.6 63 18 116/79 (91) 97 Nasal Cannula 2.0 97.6 I & 0 Intake and Output 12/02/18 07:00 Intake Total 260 ml Output Total 150 ml Balance 110 ml Intake Oral 260 ml Output Urine Total 150 ml PHYSICAL EXAM Physical Exam GENERAL: NAD HEENT: OM moist NECK: Supple CARDIOVASCULAR: S1, S2. LUNGS: Diminished breath sounds right base, non labored ABDOMEN: Soft, has a peritoneal dialysis catheter. : No Zamorano. EXT: edema + NEURO : AxOx 3 DIAGNOSIS/ASSESSMENT Assessment & Plan ESRD- Under Dr. Bhat's care Switched back to HD from PD , currently TTS while inpatient no indication for HD today Awaiting OP chair time HTN - stable Continue home antihypertensives Right pleural effusion- s/p Thoracentesis on 11/29- 2.2 lts removed Ascites- has PD catheter COMMENT/RELEVANT DATA Meds Current Medications Medications (Trade) Dose Ordered Sig/Sascha Start Time Stop Time Status Last Admin Dose Admin Acetaminophen (Tylenol) 650 mg PRN Q4HRS PRN 11/28/18 20:45 11/29/18 20:44 DC Acetaminophen/ Hydrocodone Bitart (Lortab 5/325) 1 tab PRN Q6HRS PRN 11/29/18 22:15 12/02/18 11:43 1 TAB Alprazolam (Xanax) 0.25 mg PRN Q8HRS PRN 12/01/18 21:45 12/02/18 09:19 0.25 MG Amlodipine Besylate (Norvasc) 10 mg DAILY 11/29/18 11:00 12/02/18 09:14 10 MG Artificial Tears (Artificial Tears) 1 drop PRN Q15MIN PRN 11/29/18 12:15 Calcium/Vitamin D (Oscal D 500mg/ 200uts) 1 tab BIDWMEALS 11/29/18 11:00 12/02/18 09:14 1 TAB Carvedilol (Coreg) 6.25 mg 1X ONCE 11/29/18 10:15 11/29/18 10:16 UNV Cetirizine HCl (ZyrTEC) 10 mg DAILY 11/29/18 11:00 12/02/18 09:14 10 MG Clonidine HCl (Catapres) 0.1 mg 1X ONCE 11/29/18 10:15 11/29/18 10:16 DC 11/29/18 10:32 0.1 MG Diphenhydramine HCl (Benadryl) 25 mg 1X PRN PRN 11/29/18 10:30 11/30/18 10:29 DC Docusate Sodium (Colace) 100 mg DAILY PRN 11/29/18 09:45 Ferrous Sulfate (Feosol) 325 mg BIDWMEALS 11/29/18 12:00 12/02/18 09:14 325 MG Furosemide (Lasix) 40 mg 1X ONCE 11/29/18 10:15 11/29/18 10:16 DC 11/29/18 10:32 40 MG Gentamicin Sulfate (Garamycin) 1 ronald PRN DAILY PRN 11/29/18 17:45 Hydralazine HCl (Apresoline Inj) 10 mg 1X ONCE 11/28/18 19:30 11/28/18 19:31 DC 11/28/18 19:49 10 MG Hydralazine HCl (Apresoline) 75 mg 1X ONCE 11/29/18 10:15 11/29/18 10:16 DC 11/29/18 10:32 75 MG Info (PHARMACY MONITORING -- do not chart) 1 each PRN DAILY PRN 12/01/18 07:45 UNV Lidocaine (Lidoderm) 1 patch DAILY 11/29/18 11:00 Miscellaneous (Lidoderm Patch Removal) 1 ea QHS 11/29/18 21:00 Morphine Sulfate (Morphine Sulfate) 4 mg PRN Q2HR PRN 11/28/18 20:45 11/29/18 20:44 DC 11/29/18 13:29 4 MG Multi-Ingred Cream/Lotion/Oil/ Oint (Artificial Tears Eye Ointment) 1 ronald PRN Q1HR PRN 11/29/18 09:15 11/29/18 12:06 DC 11/29/18 10:32 1 RONALD Nicardipine HCl 50 mg/Sodium Chloride 250 ml @ 25 mls/hr CONT PRN 11/29/18 08:00 11/29/18 08:09 25 MLS/HR Ondansetron HCl (Zofran) 4 mg PRN Q8HRS PRN 11/28/18 20:45 11/29/18 20:44 DC Polyethylene Glycol (miraLAX PACKET) 17 gm DAILY PRN 11/29/18 09:45 Sodium Chloride 1,000 ml @ 400 mls/hr Q2H30M PRN 11/29/18 10:24 11/29/18 22:23 DC Results All relevant outside records, renal labs, imaging studies, telemetry/EKG's were reviewed. MAGDIEL VOGEL MD Dec 02, 2018 12:42
--- NOTE | 2018-12-02 13:04 | NUR ---
SS following up with discharge planning. SS received phone contact from [facility], [address] [place] [address], [place] [address], ; fax [phone], stating that pt is scheduled for a Wednesday, Wednesday, Wednesday chair time at 1545. They stated that pt must arrive at 1500 on 12/05/2018, for first chair time. Pt's RN notified.
[2018-12-02] MEDS ORDERED: LIDOCAINE 1% PF 2 ML VIAL. ONE (14:19)
[2018-12-02] MEDS ORDERED: IV NORMAL SALINE 1000ML BAG 1,000 ML IV PRN ×2 (15:11)
[2018-12-02] MEDS ORDERED: DIALYSIS PATIENT. MC PRN (15:15)
[2018-12-02] MEDS ORDERED: diphenhydrAMINE 50 MG/ML VIAL IV PRN ×2 (15:15)
--- NOTE | 2018-12-02 16:16 | PDOC ---
Provider Note Provider Note Discharge summary dictated. #[id number] ROSALINO SERRANO MD Dec 02, 2018 16:16
--- NOTE | 2018-12-02 19:03 | NUR ---
Discharge: Teaching verbal and written. Reviewed medications, follow-up, Dialysis, thoracentesis, diet, hypertension, CHF, ect. Patient verbalized understanding. 2 written prescriptions given to patient. All belongings with patient. IV removed without complications, catheter tip in-tact. Cab pass provided. Patient assisted to front door via wheelchair accompanied by MID LEVEL PRACTITIONER.
--- NOTE | 2018-12-02 22:40 | DS ---
DATE OF DISCHARGE: 12/02/2018 PATIENT LOCATION: 261. REASON FOR ADMISSION TO THE HOSPITAL: Recurrent pleural effusion. CONSULTATIONS: 1. Cardiology, Dr. Morin. 2. Dr. Shaffer, Pulmonology. 3. Dr. Garcia, Renal. PROCEDURES DONE: 1. Hemodialysis. 2. Thoracocentesis. HOSPITAL COURSE: The patient is a 53-year-old male with history of renal failure, on peritoneal dialysis, and this is the third admission for recurrent pleural effusion. Most of the previous two times he had 2 liters removed, what was happening is that the fluid from peritoneal dialysate is going into the right pleura causing him shortness of breath. I had a discussion with the patient and the Nephrology. It was decided not to continue peritoneal dialysis, instead started on hemodialysis. The patient already has an AV shunt access and the patient was dialyzed 3 times in the hospital. He had a thoracocentesis, another 2 liters was removed from the right lung. No pneumothorax. The patient was feeling better and the patient will be scheduled for outpatient dialysis 3 times a week, Wednesday, Wednesday and Wednesday. FINAL DIAGNOSES: 1. Recurrent pleural effusion. Thoracentesis was done with 2 liters removed. 2. Transudative fluids coming from the peritoneal fluid into the right pleura. 3. Peritoneal dialysis was stopped, started on hemodialysis. 4. End-stage renal disease, on hemodialysis. 5. Hypertension. 6. Slight elevation in troponin secondary to demand ischemia. He had a cardiac catheterization last year, no major blockages. ROSALINO SERRANO MD DR: RENATO/savannah JOB#: [id number] / [id number] NORRIS Ferreira
== END 2018-12-02 18:45 | disposition home or self-care (01) | DRG 304 ==
LOC: ER 18:59 → 1 WEST ICU 20:18 → 2 SOUTH 11-29 16:42
PROVIDERS: ADMIT Internal Medicine; ATTEND Internal Medicine
PROC: 0W993ZX Drainage of Right Pleural Cavity, Percutaneous Approach, Diagnostic (ICD-10-PCS; principal; 2018-11-29)
PROC: 5A1D70Z Performance of Urinary Filtration, Intermittent, Less than 6 Hours Per Day (ICD-10-PCS; 2018-11-29)
PROC: 5A1D70Z Performance of Urinary Filtration, Intermittent, Less than 6 Hours Per Day (ICD-10-PCS; 2018-12-01)
PROC: 5A1D70Z Performance of Urinary Filtration, Intermittent, Less than 6 Hours Per Day (ICD-10-PCS; 2018-12-02)
DX: I16.1 Hypertensive emergency (principal); J96.01 Acute respiratory failure with hypoxia; I50.33 Acute on chronic diastolic (congestive) heart failure; N18.6 End stage renal disease; J90 Pleural effusion, not elsewhere classified; I24.8 Other forms of acute ischemic heart disease; J98.11 Atelectasis; R18.8 Other ascites; I13.2 Hypertensive heart and chronic kidney disease with heart failure and with stage 5 chronic kidney disease, or end stage renal disease; F41.1 Generalized anxiety disorder; G89.29 Other chronic pain; J45.909 Unspecified asthma, uncomplicated; Z79.899 Other long term (current) drug therapy; M19.90 Unspecified osteoarthritis, unspecified site; Z82.3 Family history of stroke; Z82.49 Family history of ischemic heart disease and other diseases of the circulatory system; Z86.73 Personal history of transient ischemic attack (TIA), and cerebral infarction without residual deficits; Z91.19 Patient's noncompliance with other medical treatment and regimen; Z99.2 Dependence on renal dialysis; Z88.8 Allergy status to other drugs, medicaments and biological substances
CPT/HCPCS: 32555; 36415; 71045; 80053; 80307; 81001; 83880; 84484; 85025; 86704; 86706; 87340; 87641; 93005; 96374; 96375; J0360; J2270; J7050; 99285-25; G0378; J7030

== ENCOUNTER 2018-12-05 08:35 | Inpatient (IN) | payer OTHER ==
[~2018-12-05] VITALS: Ht 172.7 cm; Wt 59.9 kg
[~2018-12-05 08:35] MED LIST changes: +ALPR2TAB5 PO; +CLON0.2T PO; +DOXA4TAB3 PO; +DULO30CA2 PO; +POTA20TA82 PO
[2018-12-05] MEDS ORDERED: IPRATRPIUM/ALBUTEROL 0.5/2.5MG 3 ML NEBU. NEB ONE (09:00)
[2018-12-05] MEDS ORDERED: methylPREDNISolone SOD SUCC PF 125 MG/2 ML VIAL. IV ONE (09:00)
[2018-12-05] MEDS ORDERED: cloNIDine HCL 0.1 MG TABLET PO ONE (09:00)
[2018-12-05 09:26] LABS: CALCIUM 8.3 mg/dL (8.5-10.1); CREATININE 6.4 mg/dL (0.7-1.3); GFR 11.1
[2018-12-05 09:32] LABS: ALBUMIN 2.9 g/dL (3.4-5.0); ALBUMIN/GLOBULIN RATIO 0.7 (1.0-1.7); MAGNESIUM 2.3 mg/dL (1.8-2.4); TOTAL BILIRUBIN 0.7 mg/dL (0.2-1.0); TOTAL PROTEIN 6.8 g/dL (6.4-8.2)
--- NOTE | 2018-12-05 09:38 | RAD ---
PORTABLE CHEST 1V Clinical indications: Shortness of breath. COMPARISON: November 29, 2018. Findings: There is a new finding of a large right-sided pleural effusion with associated right lung base compressive atelectasis or consolidative right lung base infiltrate. Left lung field remains clear. No pneumothorax is evident. Heart size is prominent but stable. Mediastinum is unchanged. Pulmonary vasculature is unremarkable. IMPRESSION: Large right-sided pleural effusion. Electronically signed by: Obed Vanegas MD (12/05/2018 9:35 AM) [id number]
[2018-12-05 09:43] LABS: BASO # 0.1 x10^3/uL (0.0-0.2); BASO % 1 % (0-3); EOS # 0.2 x10^3/uL (0.0-0.7); EOS % 4 % (0-3); HEMATOCRIT 40.5 % (39.0-53.0); HEMOGLOBIN 13.4 g/dL (13.0-17.5); LYMPH # 0.6 x10^3/uL (1.0-4.8); LYMPH % 9 % (24-48); MEAN CORPUSCULAR HEMOGLOBIN 29 pg (25-35); MEAN CORPUSCULAR HGB CONC 33 g/dL (31-37); MEAN CORPUSCULAR VOLUME 87 fL (79-100); MONO # 0.6 x10^3/uL (0.0-1.1); MONO % 9 % (0-9); NEUT # 5.1 x10^3/uL (1.8-7.7); NEUT % 77 % (31-73); PLATELET COUNT 175 x10^3/uL (140-400); RED BLOOD COUNT 4.63 x10^6/uL (4.30-5.70); WHITE BLOOD COUNT 6.6 x10^3/uL (4.0-11.0)
[2018-12-05 09:46] LABS: PROTHROMBIN TIME PATIENT 13.2 SEC (11.7-14.0)
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
[2018-12-05] MEDS ORDERED: LABETALOL 20 MG/4 ML DISP.SYRIN. IVP ONE (10:45)
--- NOTE | 2018-12-05 11:02 | EKG ---
[facility] [address] [place] [address] Test Date: 2018-12-05 Test Time: 08:45:19 Pat Name: FRANKIE GARCIA Department: Room: [facility] Gender: M Student Records Specialist: : 1965 Requested By: KUSUM NEVES Order Number: [id number] Reading MD: James Hurd MD Measurements Intervals [place] Rate: 92 P: 60 MT: 124 QRS: 32 QRSD: 90 T: 59 QT: 378 QTc: 472 Interpretive Statements SINUS RHYTHM NON-SPECIFIC ST/T CHANGES Electronically Signed On 12-05-2018 13:47:41 CDT by James Hurd MD
[2018-12-05 11:40] VITALS: BP 154/112
[2018-12-05] MEDS ORDERED: IV NORMAL SALINE 1000ML BAG 1,000 ML IV PRN ×2 (12:27)
[2018-12-05] MEDS ORDERED: ALBUMIN HUMAN 25% 200 ML IV PRN (12:30)
[2018-12-05] MEDS ORDERED: diphenhydrAMINE 50 MG/ML VIAL IV PRN (12:30)
[2018-12-05] MEDS ORDERED: DIALYSIS PATIENT. MC PRN ×2 (12:30)
[2018-12-05] MEDS: LIDOCAINE (700MG/PATCH) PATCH. TD SCH (13:00)
[2018-12-05] MEDS ORDERED: ALPRAZolam 0.25 MG TABLET PO PRN (13:00)
[2018-12-05] MEDS ORDERED: DOCUSATE SODIUM 100 MG CAPSULE. PO PRN (13:00)
[2018-12-05] MEDS ORDERED: ALBUTEROL SULFATE 2.5 MG/3 ML NEBU. NEB PRN (13:00)
[2018-12-05] MEDS ORDERED: POLYETHYLENE GLYCOL 3350 17 GM PACKET. PO PRN (13:00)
--- NOTE | 2018-12-05 13:02 | CONS ---
DATE OF CONSULTATION: PULMONARY CONSULTATION ATTENDING PHYSICIAN: Bernarda Rowan MD REASON FOR CONSULTATION: Recurrent pleural effusion. HISTORY OF PRESENT ILLNESS: The patient is a 53-year-old male who has history of end-stage renal disease, has been on peritoneal dialysis for many years. He had recurrent pleural effusion. It was highly suspected to have peritoneal fluid leaking into the pleural space and as a result, he was started on hemodialysis on his last admission and was discharged home just this Wednesday. The patient did not have any outpatient hemodialysis yet. He came back to the hospital with complaint of shortness of breath and he was found to have moderate right-sided recurrent pleural effusion. No cough, no fever, no chills, no chest pains, and no lower extremity edema. No headache, no nausea, vomiting or diarrhea. He is not on home oxygen. PAST MEDICAL HISTORY: History of hypertension; history of cardiac catheterization, which showed normal coronary; history of end-stage renal disease, has been on peritoneal dialysis, which was switched to hemodialysis last visit. PAST SURGICAL HISTORY: Cardiac catheterization and peritoneal dialysis catheter and thoracentesis x 3 and hernia repair. FAMILY HISTORY: Heart disease, hypertension, and stroke. SOCIAL HISTORY: No history of tobacco or alcohol use. MEDICATIONS: Reviewed as listed in the MRAD. ALLERGIES: CODEINE AND LISINOPRIL. REVIEW OF SYSTEMS: Twelve-point system obtained. Pertinent positives discussed in my history of present illness, otherwise noncontributory. All systems that were negative were reviewed as well. PHYSICAL EXAMINATION: VITAL SIGNS: Reviewed. HEENT: Sclerae are nonicteric. NECK: Supple. LUNGS: With diminished breath sounds at right base. CARDIOVASCULAR: With a regular rate. ABDOMEN: Soft, slightly distended. EXTREMITIES: With trace pitting edema. LABORATORY DATA: Reviewed. White cell count 6.6, hemoglobin 13.3 and platelets 175. BUN and creatinine 64 and 11.1. IMPRESSION: 1. Recurrent right-sided pleural effusion in a patient who has history of end-stage renal disease and has been on peritoneal dialysis. It was strongly suspected that his pleural effusion was leakage of the peritoneal fluid. As a result, the peritoneal dialysis was discontinued and he was switched to hemodialysis last week. However, he did not had any outpatient dialysis and as a result, he has now reaccumulation of pleural effusion. 2. No significant history of alcohol use. 3. No significant history of tobacco use. 4. Hypoxia related to recurrent left-sided effusion. 5. Hypertensive urgency. His pressure systolic was 239, also contributing to recurrent congestive heart failure. RECOMMENDATIONS: 1. Discussed with Dr. Bhat. We will proceed with right-sided thoracentesis. 2. The patient to continue with scheduled hemodialysis as an outpatient, compliance can be an issue. 3. Dr. Bhat plans to leave the peritoneal dialysis catheter and place to have paracentesis in future. 4. Optimization of blood pressure. 5. Discussed with RN. FLACO RAMESH MD DR: MARCELLA/savannah JOB#: [id number] / [id number]
--- NOTE | 2018-12-05 13:15 | PDOC2 ---
CARDIAC CONSULT DATE OF CONSULT Date of Consult DATE: 12/05/18 TIME: 13:04 REASON FOR CONSULT Reason for Consult: Elevated troponin REFERRING PHYSICIAN Referring Physician: Dr. Canales SOURCE Source: Chart review, Patient HISTORY OF PRESENT ILLNESS HISTORY OF PRESENT ILLNESS This is a 53 yo male, with a history of ESRD, hypertension, and noncompliance, who presented secondary to shortness of breath. Has been seen by our service multiple times recently due to uncontrolled hypertension and elevated troponin level. Patient presently drowsy and unable to provide any meaningful history. Blood pressures routinely significantly elevated upon arrival. Blood pressure improves with resumption of routine home antihypertensive therapy. Was recently transitioned from HD to PD, due to pain with his access device. Has a couple of admission where he missed PD for a couple of days, requiring HD. Last week, patient was converted back to hemodialysis. PAST MEDICAL HISTORY Past Medical History Cardiovascular: HTN, CHF (diastolic) Pulmonary: Asthma CENTRAL NERVOUS SYSTEM: CVA, Peripheral neuropathy GI: No pertinent hx Heme/Onc: Anemia NOS Hepatobiliary: No pertinent hx Psych: Anxiety Musculoskeletal: Osteoarthritis Rheumatologic: No pertinent hx Infectious disease: No pertinent hx ENT: No pertinent hx Renal/: Chronic renal failure (ESRD on PD, now back on HD) Endocrine: No pertinent hx Dermatology: No pertinent hx PAST SURGICAL HISTORY Past Surgical History Other (lumbar fusion, L dialysis fistula placement, corneal transplant, paracentesis) FAMILY HISTORY Family History: Heart Disease, Hypertension, Stroke SOCIAL HISTORY Social History Smoke: No ALCOHOL: none Drugs: None Lives: with Family CURRENT MEDICATIONS CURRENT MEDICATIONS Current Medications Medications (Trade) Dose Ordered Sig/Sascha Route PRN Reason Start Time Stop Time Status Last Admin Dose Admin Albuterol/ Ipratropium (Duoneb) 3 ml 1X ONCE NEB 12/05/18 09:00 12/05/18 09:03 DC 12/05/18 09:09 Methylprednisolone Sodium Succinate (SOLU-Medrol 125MG VIAL) 125 mg 1X ONCE IV 12/05/18 09:00 12/05/18 09:03 DC 12/05/18 09:24 Clonidine HCl (Catapres) 0.2 mg 1X ONCE PO 12/05/18 09:00 12/05/18 09:03 DC 12/05/18 09:24 Lorazepam (Ativan Inj) 1 mg 1X ONCE IV 12/05/18 09:00 12/05/18 09:03 DC 12/05/18 09:24 Labetalol HCl (Normodyne Iv Push) 20 mg 1X ONCE IVP 12/05/18 10:45 12/05/18 10:46 DC 12/05/18 10:27 ALLERGIES ALLERGIES: Coded Allergies: lisinopril (Verified Allergy, Severe, Swelling, 06/03/18) codeine (Verified Allergy, Intermediate, itching, 11/29/18) I S O L A T I O N *CONTACT* (Verified Allergy, Unknown, 06/03/18) +MRSA nares 01/15/18 ROS Review of System unobtainable. PHYSICAL EXAM PHYSICAL EXAM General: drowsy, falling asleep during exam HEENT: Atraumatic, Mucous membr. moist/pink Lungs: diminished, bibasilar crackles Heart: Regular rate (SR), Normal S1, Normal S2, Other (3/6 systolic murmur to LLS border) Abdomen: ascites Extremities: No cyanosis, 2+ bilateral LE edema Skin: No breakdown, No significant lesion Neuro: , Sensation intact Psych/Mental Status: unable to assess MUSCULOSKELETAL: Osteoarthritic changes both hands VITALS/I&O VITALS/I&O: Vital Signs Date Time Temp Pulse Resp B/P (MAP) Pulse Ox O2 Delivery O2 Flow Rate FiO2 12/05/18 11:40 98.1 61 20 154/112 (126) 98 Nasal Cannula 2.0 98.1 LABS Lab: Laboratory Tests Test 12/05/18 09:06 White Blood Count 6.6 x10^3/uL (4.0-11.0) Red Blood Count 4.63 x10^6/uL (4.30-5.70) Hemoglobin 13.4 g/dL (13.0-17.5) Hematocrit 40.5 % (39.0-53.0) Mean Corpuscular Volume 87 fL (79-100) Mean Corpuscular Hemoglobin 29 pg (25-35) Mean Corpuscular Hemoglobin Concent 33 g/dL (31-37) Red Cell Distribution Width 17.0 % (11.5-14.5) H Platelet Count 175 x10^3/uL (140-400) Neutrophils (%) (Auto) 77 % (31-73) H Lymphocytes (%) (Auto) 9 % (24-48) L Monocytes (%) (Auto) 9 % (0-9) Eosinophils (%) (Auto) 4 % (0-3) H Basophils (%) (Auto) 1 % (0-3) Neutrophils # (Auto) 5.1 x10^3/uL (1.8-7.7) Lymphocytes # (Auto) 0.6 x10^3/uL (1.0-4.8) L Monocytes # (Auto) 0.6 x10^3/uL (0.0-1.1) Eosinophils # (Auto) 0.2 x10^3/uL (0.0-0.7) Basophils # (Auto) 0.1 x10^3/uL (0.0-0.2) Prothrombin Time 13.2 SEC (11.7-14.0) Prothrombin Time INR 1.0 (0.8-1.1) Sodium Level 143 mmol/L (136-145) Potassium Level 4.0 mmol/L (3.5-5.1) Chloride Level 104 mmol/L (98-107) Carbon Dioxide Level 29 mmol/L (21-32) Anion Gap 10 (6-14) Blood Urea Nitrogen 64 mg/dL (8-26) H Creatinine 6.4 mg/dL (0.7-1.3) H Estimated GFR (Cockcroft-Gault) 11.1 BUN/Creatinine Ratio 10 (6-20) Glucose Level 123 mg/dL (70-99) H Lactic Acid Level 1.3 mmol/L (0.4-2.0) Calcium Level 8.3 mg/dL (8.5-10.1) L Magnesium Level 2.3 mg/dL (1.8-2.4) Total Bilirubin 0.7 mg/dL (0.2-1.0) Aspartate Amino Transferase (AST) 32 U/L (15-37) Alanine Aminotransferase (ALT) 29 U/L (16-63) Alkaline Phosphatase 143 U/L (46-116) H Creatine Kinase 191 U/L (39-308) Troponin I Quantitative 1.202 ng/mL (0.000-0.055) PR-Adl-C-Type Natriuretic Peptide > 61335 pg/mL (0-124) H Total Protein 6.8 g/dL (6.4-8.2) Albumin 2.9 g/dL (3.4-5.0) L Albumin/Globulin Ratio 0.7 (1.0-1.7) L Laboratory Tests 12/05/18 09:06 Laboratory Tests 12/05/18 09:06 ECHOCARDIOGRAM ECHOCARDIOGRAM <Conclusion> The left ventricle is normal size. Left ventricle systolic function is low normal. The Ejection Fraction is 50-55%. There is a flattened septum consistent with right ventricle pressure overload. There is moderate concentric left ventricular hypertrophy. The right ventricle is mildly dilated. There is no significant aortic valvular stenosis. Doppler and Color Flow revealed mild aortic regurgitation. Doppler and Color-flow revealed trace mitral regurgitation. Doppler and Color Flow revealed trace tricuspid regurgitation. The PA pressure was estimated at 34 mmHg. Doppler and Color Flow revealed mild pulmonic valvular regurgitation. The ascending aorta is moderately dilated at 3.8 cm. DATE: 10/30/181436 HEART CATH HEART CATH CORONARY ANGIOGRAPHY: LM is a large caliber vessel with normal angiographic appearance. LAD is a large caliber vessel with normal angiographic appearance. Ramus is a moderate caliber vessel with normal angiographic appearance. LCx is a moderate caliber non-dominant vessel with normal angiographic appearance. OM1 is a moderate caliber vessel with normal angiographic appearance. RCA is a large caliber dominant vessel with normal angiographic appearance. RPDA is a moderate caliber vessels with normal angiographic appearance. Conclusion 1. No significant obstructive coronary artery disease. 2. Elevated left sided filling pressures. Recommendations Aggressive Medical Therapy DATE: 05/10/171446 ASSESSMENT/PLAN ASSESSMENT/PLAN 1. Acute respiratory failure with recurrent right pleural effusion. thoracentesis planned for later today. 2. Hypertensive urgency; remains elevated 3. NSTEMI; initial trop 1.2. Most probably type II, demand ischemia in the setting of uncontrolled hypertension and renal failure. Cath 04/29 without significant obstructive disease as noted above. Recent echo with preserved LV systolic function with an EF of 50-55%. 4. Acute on chronic diastolic HF; induced by uncontrolled hypertension 5. ESRD; was on PD, recently transitioned back to HD 6. Hx of CVA 7. Ascites; s/p previous paracentesis 8. Noncompliance Recommendations ASA Continue with home antiHTN therapy including Coreg, Norvasc, hydralazine. and clonidine. Allergy to ACEi. Monitor to assess need for therapy titration. PRN hydralazine IV Fluid off loading via HD Supportive care Consider further ischemic evaluation with MPI. Encouraged medical compliance SARAH,[employer]IN [employer] Dec 05, 2018 13:14
--- NOTE | 2018-12-05 13:55 | PDOC ---
Renal-Progress Notes Subjective Notes Notes SOB History of Present Illness Hx of present illness RECURRENT PROBLEM Vitals Vitals Vital Signs Date Time Temp Pulse Resp B/P (MAP) Pulse Ox O2 Delivery O2 Flow Rate FiO2 12/05/18 11:40 98.1 61 20 154/112 (126) 98 Nasal Cannula 2.0 98.1 Weight Weight [ ] Labs Labs Laboratory Tests Test 12/05/18 09:06 White Blood Count 6.6 x10^3/uL (4.0-11.0) Red Blood Count 4.63 x10^6/uL (4.30-5.70) Hemoglobin 13.4 g/dL (13.0-17.5) Hematocrit 40.5 % (39.0-53.0) Mean Corpuscular Volume 87 fL (79-100) Mean Corpuscular Hemoglobin 29 pg (25-35) Mean Corpuscular Hemoglobin Concent 33 g/dL (31-37) Red Cell Distribution Width 17.0 % (11.5-14.5) Platelet Count 175 x10^3/uL (140-400) Neutrophils (%) (Auto) 77 % (31-73) Lymphocytes (%) (Auto) 9 % (24-48) Monocytes (%) (Auto) 9 % (0-9) Eosinophils (%) (Auto) 4 % (0-3) Basophils (%) (Auto) 1 % (0-3) Neutrophils # (Auto) 5.1 x10^3/uL (1.8-7.7) Lymphocytes # (Auto) 0.6 x10^3/uL (1.0-4.8) Monocytes # (Auto) 0.6 x10^3/uL (0.0-1.1) Eosinophils # (Auto) 0.2 x10^3/uL (0.0-0.7) Basophils # (Auto) 0.1 x10^3/uL (0.0-0.2) Prothrombin Time 13.2 SEC (11.7-14.0) Prothromb Time International Ratio 1.0 (0.8-1.1) Sodium Level 143 mmol/L (136-145) Potassium Level 4.0 mmol/L (3.5-5.1) Chloride Level 104 mmol/L (98-107) Carbon Dioxide Level 29 mmol/L (21-32) Anion Gap 10 (6-14) Blood Urea Nitrogen 64 mg/dL (8-26) Creatinine 6.4 mg/dL (0.7-1.3) Estimated GFR (Cockcroft-Gault) 11.1 BUN/Creatinine Ratio 10 (6-20) Glucose Level 123 mg/dL (70-99) Lactic Acid Level 1.3 mmol/L (0.4-2.0) Calcium Level 8.3 mg/dL (8.5-10.1) Magnesium Level 2.3 mg/dL (1.8-2.4) Total Bilirubin 0.7 mg/dL (0.2-1.0) Aspartate Amino Transf (AST/SGOT) 32 U/L (15-37) Alanine Aminotransferase (ALT/SGPT) 29 U/L (16-63) Alkaline Phosphatase 143 U/L (46-116) Creatine Kinase 191 U/L (39-308) Troponin I Quantitative 1.202 ng/mL (0.000-0.055) TW-Zec-O-Type Natriuretic Peptide > 04412 pg/mL (0-124) Total Protein 6.8 g/dL (6.4-8.2) Albumin 2.9 g/dL (3.4-5.0) Albumin/Globulin Ratio 0.7 (1.0-1.7) Review of Systems Constitutional: yes: weakness, alert, oriented Ears/Nose/Throat: Yes: no symptom reported Eyes: Yes: no symptom reported Pulmonary: Yes dyspnea Cardiovascular: Yes no symptom reported Gastrointestional: Yes: constipation, other (DISTENTION) Genitourinary: Yes: no symptom reported Musculoskeletal: Yes: muscle stiffness Skin: Yes no symptom reported Psychiatric/Neurological: Yes: no symptom reported Endocrine: Yes: no symptom reported Physical Exam General Appearance: no apparent distress Respiratory: decreased breath sounds Heart: S1S2 Abdomen: soft, distension Genitourinary: bladder flat Extremities: pulses present, no edema, atrophy Neurology: alert, oriented, Ext weakness Assessment Assessment IMP DYSPNEA RECURRENT RIGHT SIDED PLEURAL EFFUSION RECURRENT ASCITES-PROB NEPHROGENIC VS PORTAL HYPERTENSION MALIGNANT HTN DUE TO NON COMPLIANCE ESRD PLAN THORACENTESIS WILL NEED PARACENTESIS-DRAIN VIA PD CATHETER PT WILL NO LONGER BE ON PD HD TODAY UF TO DW TOLERATED WILL ASK SW TO SET UP OP HOME HEALTH TO TEACH HIM HOW TO DRAIN INTO A BAG(WHICH HE KNOWS) BUT THINK THEY WILL NEED TO BE INVOLVED FOR HIM TO GET SUPPLIES WILL FOLLOW D/W IR D/W DR RAMESH AND OSIRIS COLEMAN MD Dec 05, 2018 13:55
[2018-12-05] MEDS: CARVEDILOL 12.5 MG TABLET. PO SCH (17:44)
[2018-12-05] MEDS: CALCIUM CARB/VIT D3 500/200 TABLET. PO SCH (17:44)
[2018-12-05 19:00] VITALS: BP 146/94
[2018-12-05] MEDS: PATCH REMOVAL. MC SCH (21:00)
[2018-12-05] MEDS: HYDROcodone/APAP 5/325MG 1 TAB TABLET PO PRN (21:04)
[2018-12-05] MEDS: guaiFENesin DM 200MG/20MG 10 ML SYRUP PO PRN (21:04)
[2018-12-05] MEDS: cloNIDine HCL 0.2 MG TABLET PO SCH (21:04)
[2018-12-05 23:02] VITALS: BP 152/91
[2018-12-05] MEDS: DOXAZOSIN MESYLATE 4 MG TABLET. PO SCH (23:09)
[2018-12-06] VITALS (10 sets, daily range): BP systolic 75–175; BP diastolic 75–108
[2018-12-06] MEDS: guaiFENesin DM 200MG/20MG 10 ML SYRUP PO PRN ×3 (03:39→17:18)
[2018-12-06] MEDS: HYDROcodone/APAP 5/325MG 1 TAB TABLET PO PRN ×3 (03:40→17:18)
--- NOTE | 2018-12-06 08:30 | PDOC ---
PULMONARY PROGRESS NOTES Subjective BETTER AFTER THORACENTESIS Vitals Vital Signs Date Time Temp Pulse Resp B/P (MAP) Pulse Ox O2 Delivery O2 Flow Rate FiO2 12/06/18 07:00 97.8 61 164/98 (120) 100 Nasal Cannula 2.0 97.8 12/06/18 03:51 18 ROS: No Nausea, No Chest Pain, No Abdominal Pain, No Increase Cough General: Alert, No acute distress Lungs: Clear, Other Cardiovascular: S1, S2 Abdomen: Soft, Other Extremities: No Edema, Other Labs Laboratory Tests Test 12/05/18 09:06 12/05/18 18:15 White Blood Count 6.6 x10^3/uL (4.0-11.0) Red Blood Count 4.63 x10^6/uL (4.30-5.70) Hemoglobin 13.4 g/dL (13.0-17.5) Hematocrit 40.5 % (39.0-53.0) Mean Corpuscular Volume 87 fL (79-100) Mean Corpuscular Hemoglobin 29 pg (25-35) Mean Corpuscular Hemoglobin Concent 33 g/dL (31-37) Red Cell Distribution Width 17.0 % (11.5-14.5) Platelet Count 175 x10^3/uL (140-400) Neutrophils (%) (Auto) 77 % (31-73) Lymphocytes (%) (Auto) 9 % (24-48) Monocytes (%) (Auto) 9 % (0-9) Eosinophils (%) (Auto) 4 % (0-3) Basophils (%) (Auto) 1 % (0-3) Neutrophils # (Auto) 5.1 x10^3/uL (1.8-7.7) Lymphocytes # (Auto) 0.6 x10^3/uL (1.0-4.8) Monocytes # (Auto) 0.6 x10^3/uL (0.0-1.1) Eosinophils # (Auto) 0.2 x10^3/uL (0.0-0.7) Basophils # (Auto) 0.1 x10^3/uL (0.0-0.2) Prothrombin Time 13.2 SEC (11.7-14.0) Prothromb Time International Ratio 1.0 (0.8-1.1) Sodium Level 143 mmol/L (136-145) Potassium Level 4.0 mmol/L (3.5-5.1) Chloride Level 104 mmol/L (98-107) Carbon Dioxide Level 29 mmol/L (21-32) Anion Gap 10 (6-14) Blood Urea Nitrogen 64 mg/dL (8-26) Creatinine 6.4 mg/dL (0.7-1.3) Estimated GFR (Cockcroft-Gault) 11.1 BUN/Creatinine Ratio 10 (6-20) Glucose Level 123 mg/dL (70-99) Lactic Acid Level 1.3 mmol/L (0.4-2.0) Calcium Level 8.3 mg/dL (8.5-10.1) Magnesium Level 2.3 mg/dL (1.8-2.4) Total Bilirubin 0.7 mg/dL (0.2-1.0) Aspartate Amino Transf (AST/SGOT) 32 U/L (15-37) Alanine Aminotransferase (ALT/SGPT) 29 U/L (16-63) Alkaline Phosphatase 143 U/L (46-116) Creatine Kinase 191 U/L (39-308) Troponin I Quantitative 1.202 ng/mL (0.000-0.055) 0.665 ng/mL (0.000-0.055) QZ-Igf-R-Type Natriuretic Peptide > 34029 pg/mL (0-124) Total Protein 6.8 g/dL (6.4-8.2) Albumin 2.9 g/dL (3.4-5.0) Albumin/Globulin Ratio 0.7 (1.0-1.7) Laboratory Tests Test 12/05/18 09:06 12/05/18 18:15 White Blood Count 6.6 x10^3/uL (4.0-11.0) Red Blood Count 4.63 x10^6/uL (4.30-5.70) Hemoglobin 13.4 g/dL (13.0-17.5) Hematocrit 40.5 % (39.0-53.0) Mean Corpuscular Volume 87 fL (79-100) Mean Corpuscular Hemoglobin 29 pg (25-35) Mean Corpuscular Hemoglobin Concent 33 g/dL (31-37) Red Cell Distribution Width 17.0 % (11.5-14.5) Platelet Count 175 x10^3/uL (140-400) Neutrophils (%) (Auto) 77 % (31-73) Lymphocytes (%) (Auto) 9 % (24-48) Monocytes (%) (Auto) 9 % (0-9) Eosinophils (%) (Auto) 4 % (0-3) Basophils (%) (Auto) 1 % (0-3) Neutrophils # (Auto) 5.1 x10^3/uL (1.8-7.7) Lymphocytes # (Auto) 0.6 x10^3/uL (1.0-4.8) Monocytes # (Auto) 0.6 x10^3/uL (0.0-1.1) Eosinophils # (Auto) 0.2 x10^3/uL (0.0-0.7) Basophils # (Auto) 0.1 x10^3/uL (0.0-0.2) Prothrombin Time 13.2 SEC (11.7-14.0) Prothromb Time International Ratio 1.0 (0.8-1.1) Sodium Level 143 mmol/L (136-145) Potassium Level 4.0 mmol/L (3.5-5.1) Chloride Level 104 mmol/L (98-107) Carbon Dioxide Level 29 mmol/L (21-32) Anion Gap 10 (6-14) Blood Urea Nitrogen 64 mg/dL (8-26) Creatinine 6.4 mg/dL (0.7-1.3) Estimated GFR (Cockcroft-Gault) 11.1 BUN/Creatinine Ratio 10 (6-20) Glucose Level 123 mg/dL (70-99) Lactic Acid Level 1.3 mmol/L (0.4-2.0) Calcium Level 8.3 mg/dL (8.5-10.1) Magnesium Level 2.3 mg/dL (1.8-2.4) Total Bilirubin 0.7 mg/dL (0.2-1.0) Aspartate Amino Transf (AST/SGOT) 32 U/L (15-37) Alanine Aminotransferase (ALT/SGPT) 29 U/L (16-63) Alkaline Phosphatase 143 U/L (46-116) Creatine Kinase 191 U/L (39-308) Troponin I Quantitative 1.202 ng/mL (0.000-0.055) 0.665 ng/mL (0.000-0.055) MP-Pya-S-Type Natriuretic Peptide > 13850 pg/mL (0-124) Total Protein 6.8 g/dL (6.4-8.2) Albumin 2.9 g/dL (3.4-5.0) Albumin/Globulin Ratio 0.7 (1.0-1.7) Medications Active Scripts Medications Dose Route/Sig Max Daily Dose Days Date Category Amlodipine Besylate 10 Mg Tablet 10 Mg PO DAILY 30 12/02/18 Rx Doxazosin Mesylate 4 Mg Tablet 4 Mg PO HS 11/29/18 Reported Carvedilol (Carvedilol) 12.5 Mg Tablet 12.5 Mg PO BIDWMEALS 11/29/18 Reported Clonidine Hcl 0.2 Mg Tablet 0.2 Mg PO BID 11/29/18 Reported Alprazolam 0.25 Mg Tablet 1 Tab PO PRN DAILY PRN 11/29/18 Reported Cymbalta (Duloxetine Hcl) 30 Mg Capsule. 1 Cap PO DAILY 11/29/18 Reported Hydralazine Hcl 50 Mg Tablet 1 Tab PO BID 11/29/18 Reported Colace (Docusate Sodium) 100 Mg Capsule 100 Mg PO DAILY PRN 10/14/18 Rx Polyethylene Glycol 3350 17 Gm Powd.pack 17 Gm PO DAILY PRN 10/14/18 Rx Lidocaine PATCH (Lidocaine) 1 Each Adh..patch 1 Patch TD DAILY 10/10/18 Rx Proair Hfa (Albuterol Sulfate) 8.5 Gm Hfa.aer.ad 2.5 Mg NEB PRN Q4HRS PRN 30 10/10/18 Rx Cetirizine Hcl 10 Mg Tablet 10 Mg PO DAILY 30 10/10/18 Rx Oyster Shell 500 Mg + Vit D Tb (Calcium Carbonate/Vitamin D3) 1 Each Tablet 1 Tab PO BIDWMEALS 30 01/31/18 Rx Aspirin Ec (Aspirin) 325 Mg Tablet. 325 Mg PO DAILYWBKFT 10/25/17 Rx Impression . IMPRESSION: 1. Recurrent right-sided pleural effusion in a patient who has history of end-stage renal disease and has been on peritoneal dialysis. I 2. No significant history of alcohol use. 3. No significant history of tobacco use. 4. Hypoxia related to recurrent left-sided effusion. 5. Hypertensive urgency. His pressure systolic was 239, also contributing to recurrent congestive heart failure. Plan . BETTER AFTER THORACENTESIS D/C OK BY ME 12/07 CHICA REGAN MD Dec 06, 2018 08:30
[2018-12-06] MEDS: DULoxetine HCL 30 MG CAPSULE.DR PO SCH (09:00)
[2018-12-06] MEDS: LIDOCAINE (700MG/PATCH) PATCH. TD SCH (09:00)
--- NOTE | 2018-12-06 09:01 | PDOC ---
BRIEF OPERATIVE NOTE Pre-Op Diagnosis Pleural effusion Post-Op Diagnosis same Procedure Performed Right thoracentesis Surgeon Beatrice Anesthesia Type: Local Findings 1500 cc thin yellow fluid. US of abdomen reveals no ascites. DARCIE BAIRD MD Dec 06, 2018 09:01
[2018-12-06] MEDS: amLODIPine BESYLATE 10 MG TABLET PO SCH (09:21)
[2018-12-06] MEDS: ASPIRIN ENTERIC COATED 325 MG TABLET.DR. PO SCH (09:22)
[2018-12-06] MEDS: CARVEDILOL 12.5 MG TABLET. PO SCH ×2 (09:22→17:00)
[2018-12-06] MEDS: cloNIDine HCL 0.2 MG TABLET PO SCH ×2 (09:22→20:40)
[2018-12-06] MEDS: CETIRIZINE HCL 10 MG TABLET. PO SCH (09:23)
[2018-12-06] MEDS: CALCIUM CARB/VIT D3 500/200 TABLET. PO SCH ×2 (09:23→17:14)
--- NOTE | 2018-12-06 09:33 | NUR ---
IP: Pt has a hx of + mrsa screens since 01/2018 with most recent on 10/30/18. Pt to be in contact precautions until there are 2 negative screens 7 days apart. Recommend a current screen and then initiate the Nozin/CHG decolonization.
--- NOTE | 2018-12-06 10:01 | PDOC ---
Provider Note Provider Note H&P dictated.#[id number] ROSALINO SERRANO MD Dec 06, 2018 10:01
--- NOTE | 2018-12-06 12:06 | HP ---
ADMIT DATE: 12/05/2018 MEDICAL HISTORY AND PHYSICAL PATIENT LOCATION: [facility] ATTENDING PHYSICIAN: Bernarda Serrano MD PRIMARY CARE PHYSICIAN: Michelle Callaway MD REASON FOR ADMISSION TO THE HOSPITAL: Shortness of breath, recurrent right pleural effusion, end-stage renal disease. HISTORY OF PRESENT ILLNESS: The patient is a 53-year-old male with end-stage renal disease, on peritoneal dialysis. He was transitioned to hemodialysis. He was discharged on Wednesday, supposed to go to dialysis on Wednesday. In the meantime, he has been lying at home and has been weak, unable to get up and short of breath. The patient lives at home with his mom. Mom called ambulance and he was brought to the hospital. The patient was found to have recurrent pleural effusion. He had a thoracocentesis done. This was the fourth time he has developed pleural fluid. In the past, it was thought secondary to his peritoneal dialysis with fluids leaking into the pleural space and it was recommended not to do peritoneal and continue hemodialysis. PAST MEDICAL HISTORY: He has history of hypertension and diastolic heart failure. Cardiac catheterization shows no major blockages. He always has slightly elevated troponin, end-stage renal disease, on dialysis. PAST SURGICAL HISTORY: He has an AV shunt. He has a peritoneal dialysis catheter, had a cardiac catheterization last year, lumbar fusion, corneal transplant, multiple thoracenteses and paracenteses. FAMILY HISTORY: Hypertension, stroke, heart disease. SOCIAL HISTORY: No history of smoking, alcohol, or drug abuse; lives at home. ALLERGIES: CODEINE, LISINOPRIL, AND MORPHINE. MEDICATIONS AT HOME: Xanax 0.25 four times a day, amlodipine 10 mg daily, aspirin 325 daily, calcium with vitamin D daily, Coreg 12.5 mg twice a day, Zyrtec 10 mg daily, clonidine 0.2 twice a day, Colace 100 mg daily, Cardura 4 mg at bedtime, Cymbalta 30 mg daily, hydralazine 50 mg twice a day, lidocaine patch 1 daily, MiraLax 17 grams daily, and takes hydrocodone p.r.n. for pain. REVIEW OF SYSTEMS: Complains of shortness of breath, generalized weakness; denies any chest pain. PHYSICAL EXAMINATION: GENERAL: Lying in bed, not in any distress. VITAL SIGNS: Temperature 97, pulse 72, respirations 18, blood pressure 239/139, and saturation 91% on room air. HEENT: Head is atraumatic. Pupils are equal. Oral cavity: No congestion. NECK: Supple. CHEST: Symmetrical. CARDIOVASCULAR: S1, S2. LUNGS: Diminished breath sounds on the right side. ABDOMEN: Soft, has a peritoneal dialysis catheter. EXTERNAL GENITALIA: No Zamorano. RECTAL: Deferred. EXTREMITIES: The patient has AV shunt in the left upper extremity. Thrill is present. Lower extremities: No calf tenderness, no edema. Pulses are 1+. NEUROLOGIC: Moving all extremities. No focal deficits noted. LABORATORY DATA: Shows a white count of 6.6, hemoglobin 13.4, and platelets 175. INR is 1.0. Electrolytes show sodium 143, potassium 4.0, chloride 104, bicarb 29, anion gap 10, BUN 64, creatinine 6.4, glucose 123, lactic acid 1.3, and magnesium 2.3. LFTs are normal. Troponin is 1.2, trending down to 0.6. BNP is 35,000. IMAGING: Chest x-ray shows a large right pleural effusion. FINAL IMPRESSION: 1. Recurrent right pleural effusion. 2. Malignant hypertension. 3. End-stage renal disease, on dialysis. He was on peritoneal dialysis. He is being transitioned to hemodialysis. 4. Slight elevation in troponin; had a cardiac catheterization, which shows no major blockages as demand ischemia. 5. Noncompliance. PLAN: At this time, admit to hospital, seen by Renal, Dr. Bhat, and his PCP. We are going to stop peritoneal dialysis, continue hemodialysis; thoracocentesis again, this would be the fourth time in last 4 weeks, and PT/OT. Probably, the patient may need to go to SNF for some time until is back to his schedule with hemodialysis and hopefully that will help his fluid accumulation again. BERNARDA SERRANO MD DR: RENATO/savannah JOB#: [id number] / [id number] MICHELLE Ferreira
--- NOTE | 2018-12-06 12:25 | PDOC ---
Renal-Progress Notes Subjective Notes Notes LESS SOB History of Present Illness Hx of present illness STABLE Vitals Vitals Vital Signs Date Time Temp Pulse Resp B/P (MAP) Pulse Ox O2 Delivery O2 Flow Rate FiO2 12/06/18 11:00 97.8 61 14 135/90 (105) 90 Nasal Cannula 2.0 97.8 Weight Weight [ ] I.O. Intake and Output Intake and Output 12/06/18 06:59 Intake Total 850 ml Balance 850 ml Intake Oral 850 ml Labs Labs Laboratory Tests Test 12/05/18 18:15 Troponin I Quantitative 0.665 ng/mL (0.000-0.055) Micro Micro Microbiology 12/05/18 Blood Culture - Preliminary, Resulted NO GROWTH AFTER 1 DAY Review of Systems Constitutional: yes: weakness, alert, oriented Ears/Nose/Throat: Yes: no symptom reported Eyes: Yes: no symptom reported Pulmonary: Yes dyspnea Cardiovascular: Yes no symptom reported Gastrointestional: Yes: constipation, other (DISTENTION) Genitourinary: Yes: no symptom reported Musculoskeletal: Yes: muscle stiffness Skin: Yes no symptom reported Psychiatric/Neurological: Yes: no symptom reported Endocrine: Yes: no symptom reported Physical Exam General Appearance: no apparent distress Respiratory: decreased breath sounds Heart: S1S2 Abdomen: soft, distension Genitourinary: bladder flat Extremities: pulses present, no edema, atrophy Neurology: alert, oriented, Ext weakness Assessment Assessment IMP DYSPNEA-IMPROVED RECURRENT RIGHT SIDED PLEURAL EFFUSION RECURRENT ASCITES-PROB NEPHROGENIC VS PORTAL HYPERTENSION MALIGNANT HTN DUE TO NON COMPLIANCE ESRD PLAN THORACENTESIS DONE WILL NEED PARACENTESIS-DRAIN VIA PD CATHETER PT WILL NO LONGER BE ON PD HD TOMORROW WILL ASK SW TO SET UP OP HOME HEALTH TO TEACH HIM HOW TO DRAIN INTO A BAG(WHICH HE KNOWS) BUT THINK THEY WILL NEED TO BE INVOLVED FOR HIM TO GET SUPPLIES-D/W SW TODAY WILL FOLLOW D/W DR RAMESH AND DR SERRANO ENC MED COMPLIANCE OSIRIS MEADOWS MD Dec 06, 2018 12:25
--- NOTE | 2018-12-06 13:17 | RAD ---
Chest radiograph 12/06/2018 8:58 AM INDICATION: Status post right-sided thoracentesis COMPARISON: 12/05/2018 TECHNIQUE: Portable upright frontal view of the chest is provided. FINDINGS: The cardiomediastinal silhouette is enlarged, stable. Small to moderate right pleural effusion with slight interval decrease in supply examination. No pneumothorax is identified. Left lung is clear. No pulmonary vascular congestion. IMPRESSION: 1. Status post right-sided thoracentesis without evidence for pneumothorax. Mild decrease in small to moderate right pleural effusion. Electronically signed by: Payton Bernabe MD (12/06/2018 1:14 PM) [id number]
--- NOTE | 2018-12-06 15:45 | NUR ---
JOHNATHON consulted for dc planning. Chart reviewed and discussed with RN. Pt lives at home and has OP HD in the community. JOHNATHON phoned and faxed referral for home health to [facility], [place] [facility] [place] and awaiting to hear back. PT/OT is pending. Pt is eligible for inpt rehab but does not have SNU benefits. Will continue to follow. Addendum: 12/06/18 at 1622 by MAT DIEGO JOHNATHON following pt. [facility] has accepted pt and can provide home health services.
--- NOTE | 2018-12-06 17:51 | PDOC ---
MARYLOU PETERSON CIGARETTE BOOK MAKER 12/06/18 1751: CARDIO Progress Notes Date and Time Date of Service 12/06/2018 Time of Evaluation 1430 Subjective Subjective: No Chest Pain, No shortness of breath, No Palpitations Vitals Vitals Vital Signs Date Time Temp Pulse Resp B/P (MAP) Pulse Ox O2 Delivery O2 Flow Rate FiO2 12/06/18 17:18 56 102/75 12/06/18 15:08 97.6 12 94 Nasal Cannula 2.0 97.6 Weight Weight [ ] Input and Output Intake and Output Intake and Output 12/06/18 07:00 Intake Total 850 ml Balance 850 ml Intake Oral 850 ml Laboratory Labs Laboratory Tests Test 12/05/18 18:15 Troponin I Quantitative 0.665 ng/mL (0.000-0.055) Microbiology Micro Microbiology 12/05/18 Blood Culture - Preliminary, Resulted NO GROWTH AFTER 1 DAY Review of Systems Constitutional: yes: weakness, alert, oriented Ears/Nose/Throat: Yes: no symptom reported Eyes: Yes: no symptom reported Pulmonary: Yes dyspnea Cardiovascular: Yes no symptom reported Gastrointestional: Yes: constipation, other (DISTENTION) Genitourinary: Yes: no symptom reported Musculoskeletal: Yes: muscle stiffness Skin: Yes no symptom reported Psychiatric/Neurological: Yes: no symptom reported Endocrine: Yes: no symptom reported Physical Exam HEENT: Neck Supple W Full Motion Chest: Symmetric LUNGS: Other (basilar crackles) Heart: RRR (SR with intermitent SB) Abdomen: Soft N/T Extremities: No Calf Tenderness, Other (1+ bilateral LE pitting edema) Neurology: alert, oriented, follow commands Assessment Assessment 1. Acute respiratory failure with recurrent right pleural effusion. better S/P thoracentesis 2. Hypertensive urgency; resolve 3. NSTEMI; initial trop 1.2. CP free, suspect demand mediated. Recent EF nml. 4. Acute on chronic diastolic HF; induced by uncontrolled hypertension compensated 5. ESRD; was on PD, recently transitioned back to HD 6. Hx of CVA 7. Ascites; s/p previous paracentesis 8. Noncompliance Recommendations ASA Continue antiHTN regimen Fluid off loading via HD Supportive care Will consider further ischemic evaluation with [facility] as an outpt. Follow up in office if pt complies. Reinforced medical compliance ANJUM MCCORD MD 12/06/182021: CARDIO Progress Notes Plan Plan Pt. seen and examined. Agree with above BARN AND PROPERTY MANAGER note. His dyspnea has been improved with thoracentesis. No chest pain. Trop elevation likely due to BP and ESRD Supportive care. outpt ischemic eval depending on symptoms. Thanks MARYLOU PETERSON APRN Dec 06, 2018 17:51 ANJUM MCCORD MD Dec 06, 2018 20:22
[2018-12-06] MEDS: DOXAZOSIN MESYLATE 4 MG TABLET. PO SCH (20:37)
[2018-12-06] MEDS: PATCH REMOVAL. MC SCH (21:00)
[2018-12-06] MEDS ORDERED: ATORVASTATIN CALCIUM 10 MG TABLET. PO SCH (21:00)
--- NOTE | 2018-12-06 23:25 | NUR ---
This nurse received report from ANDRIA Davenport. Will resume care.
[2018-12-07 03:15] VITALS: BP 135/90
[2018-12-07] MEDS: guaiFENesin DM 200MG/20MG 10 ML SYRUP PO PRN (05:08)
[2018-12-07] MEDS: HYDROcodone/APAP 5/325MG 1 TAB TABLET PO PRN (05:09)
[2018-12-07 07:00] VITALS: BP 141/96
[2018-12-07] MEDS ORDERED: IV NORMAL SALINE 1000ML BAG 1,000 ML IV PRN ×2 (07:42)
[2018-12-07] MEDS ORDERED: DIALYSIS PATIENT. MC PRN ×2 (07:45)
[2018-12-07] MEDS: LIDOCAINE (700MG/PATCH) PATCH. TD SCH (09:00)
--- NOTE | 2018-12-07 09:16 | PDOC ---
PROGRESS NOTES Subjective Subjective pt feels better ,want to go home after dialysis Objective Objective Vital Signs Date Time Temp Pulse Resp B/P (MAP) Pulse Ox O2 Delivery O2 Flow Rate FiO2 12/07/18 07:00 97.5 57 14 141/96 (111) 97 Room Air 97.5 12/07/18 03:15 2.0 Intake and Output 12/07/18 06:59 Intake Total 450 ml Output Total 1500 ml Balance -1050 ml Intake Oral 450 ml Output Chest Tube Drainage Total 1500 ml Physical Exam Abdomen: Normal bowel sounds, Soft Heart: Regular rate, Normal S1, Normal S2 Extremities: No clubbing General: Alert HEENT: PERRLA Lungs: Other (dec breath sounds rt base) MUSCULOSKELETAL: No deformity, No swelling Neck: Supple Neuro: Normal speech Psych/Mental Status: Mental status NL Skin: No breakdown Diagnosis Problem List Problems Medical Problems: (1) Acute respiratory failure with hypoxia Status: Acute (2) Ascites Status: Acute (3) Dyspnea Status: Acute (4) ESRD (end stage renal disease) Status: Chronic (5) NSTEMI (non-ST elevated myocardial infarction) Status: Acute Assessment Assessment Problems Medical Problems: (1) Acute respiratory failure with hypoxia Status: Acute (2) Ascites Status: Acute (3) Dyspnea Status: Acute (4) ESRD (end stage renal disease) Status: Chronic (5) NSTEMI (non-ST elevated myocardial infarction) Status: Acute FINAL IMPRESSION: 1. Recurrent right pleural effusion. 2. Malignant hypertension. 3. End-stage renal disease, on dialysis. He was on peritoneal dialysis. He is being transitioned to hemodialysis. 4. Slight elevation in troponin; had a cardiac catheterization, which shows no major blockages as demand ischemia. 5. Noncompliance. PLAN: Dialysis today. Thoracocentesis yesterday 1.5 L removed. BP good control here pt wanted to go home today , Pt do not want t o go to SNU. start out pt dialysis wednesday, ,, schedule. At this time, admit to hospital, seen by Renal, Dr. Bhat, and his PCP. We are going to stop peritoneal dialysis, continue hemodialysis; thoracocentesis again, this would be the fourth time in last 4 weeks, and PT/OT. Probably, the patient may need to go to SNF for some time until is back to his schedule with hemodialysis and hopefully that will help his fluid accumulation again. Plan Plan of Care Problems Medical Problems: (1) Acute respiratory failure with hypoxia Status: Acute (2) Ascites Status: Acute (3) Dyspnea Status: Acute (4) ESRD (end stage renal disease) Status: Chronic (5) NSTEMI (non-ST elevated myocardial infarction) Status: Acute Comment Review of Relevant I have reviewed the following items benjamin (where applicable) has been applied. Labs Microbiology 12/05/18 Blood Culture - Preliminary, Resulted NO GROWTH AFTER 2 DAYS Medications Current Medications Atorvastatin Calcium (Lipitor) 10 mg QHS PO Last administered on 12/06/18at 20:40; Start 12/06/18 at 21:00 Info (PHARMACY MONITORING -- do not chart) 1 each PRN DAILY PRN MC SEE COMMENTS; Start 12/07/18 at 07:45; Stop 12/07/18 at 07:52; Status DC Info (PHARMACY MONITORING -- do not chart) 1 each PRN DAILY PRN MC SEE COMMENTS; Start 12/07/18 at 07:45 Sodium Chloride 1,000 ml @ 400 mls/hr Q2H30M PRN IV PATENCY; Start 12/07/18 at 07:42; Stop 12/07/18 at 19:41 Sodium Chloride 1,000 ml @ 1,000 mls/hr Q1H PRN IV hypotension; Start 12/07/18 at 07:42; Stop 12/07/18 at 13:41 Vitals/I & O Vital Sign - Last 24 Hours 12/06/18 12/06/18 12/06/18 12/06/18 09:23 09:23 09:23 09:23 Pulse 67 67 67 67 B/P (MAP) 140/97 140/97 140/97 140/97 12/06/18 12/06/18 12/06/18 12/06/18 11:00 15:08 17:18 19:10 Temp 97.8 97.6 98.5 97.8 97.6 98.5 Pulse 61 56 56 62 Resp 14 12 18 B/P (MAP) 135/90 (105) 102/75 (84) 102/75 109/75 (86) Pulse Ox 90 94 100 O2 Delivery Nasal Cannula Nasal Cannula Nasal Cannula O2 Flow Rate 2.0 2.0 2.0 12/06/18 12/06/18 12/06/18 12/06/18 20:00 20:40 20:40 20:40 Pulse 70 62 62 B/P (MAP) 109/75 109/75 109/75 O2 Delivery Nasal Cannula O2 Flow Rate 2.0 12/06/18 12/07/18 12/07/18 12/07/18 23:07 03:15 05:10 06:38 Temp 97.4 97.5 97.4 97.5 Pulse 51 50 Resp 18 18 18 18 B/P (MAP) 120/85 (97) 135/90 (105) Pulse Ox 100 100 O2 Delivery Nasal Cannula Nasal Cannula Nasal Cannula Nasal Cannula O2 Flow Rate 2.0 2.0 12/07/18 07:00 Temp 97.5 97.5 Pulse 57 Resp 14 B/P (MAP) 141/96 (111) Pulse Ox 97 O2 Delivery Room Air Intake and Output 12/06/18 12/06/18 12/07/18 14:59 22:59 06:59 Intake Total 0 ml 150 ml 300 ml Output Total 1500 ml Balance -1500 ml 150 ml 300 ml ROSALINO SERRANO MD Dec 07, 2018 09:16
[2018-12-07] MEDS ORDERED: ATOR10TA60 PO (09:22)
[2018-12-07] MEDS ORDERED: LIDOCAINE 1% PF 2 ML VIAL. ONE ×2 (09:30→10:00)
--- NOTE | 2018-12-07 09:55 | SNU/HH DC ---
DISCHARGE WITH HOME HEALTH DISCHARGE INFORMATION: Discharge Date: Dec 07, 2018 Final Diagnosis: Problems Medical Problems: (1) Acute respiratory failure with hypoxia Status: Acute (2) Ascites Status: Acute (3) Dyspnea Status: Acute (4) ESRD (end stage renal disease) Status: Chronic (5) NSTEMI (non-ST elevated myocardial infarction) Status: Acute Condition on Discharge: Stable CODE STATUS: Code Status: Full HOME HEALTH: Face to Face: I certify this patient is under my care and that I, or a nurse practitioner or physician's mri assistant working with me, had a face to face encounter that meets the physician face to face encounter requirements with this patient on []. Medical Complications: HTN RN For Eval/Treatment: Yes STRUCTURES TECHNICIAN For: Community Resources Pt Meets Homebound Status: Extreme weakness w/ amb. POST DISCHARGE ORDERS: Activity Instructions for Disc: Activity as tolerated Weight Bearing Status after Di: No restrictions Bathing Instructions: No Tub Bath until see Dr. CAMPBELL AFTER DISCHARGE: Renal Wound/Incision Care: No wound care needed Other wound/incision instructi: PD cathter care, CHECKS AFTER DISCHARGE: Checks after discharge: Check blood press - daily, Check your Temp as needed, Weigh Yourself Daily TREATMENT/EQUIPMENT ORDERS: Adaptive Equipment Issued: None CERTIFICATION STATEMENT: Certification Statement: Certification Statement: Based on the above finding, I certify that this patient is confined to the home and needs intermittent nursing home care, physical therapy and/or speech therapy, or continues to need occupational therapy.~ This patient is under my care, and I have initiated the establishment of the plan of care.~ This patient will be followed by myself or a community physician who will periodically review the plan of care. Home Meds Active Scripts Atorvastatin Calcium (ATORVASTATIN CALCIUM) 10 Mg Tablet, 10 MG PO QHS for chol for 30 Days, #30 TAB Prov:ROSALINO SERRANO MD 12/07/18 Amlodipine Besylate (AMLODIPINE BESYLATE) 10 Mg Tablet, 10 MG PO DAILY for htn for 30 Days, #30 TAB Prov:ROSALINO SERRANO MD 12/02/18 Docusate Sodium (COLACE) 100 Mg Capsule, 100 MG PO DAILY PRN for CONSTIPATION, #30 CAP Prov:MICHAEL CALDWELL MD 10/14/18 Polyethylene Glycol 3350 (POLYETHYLENE GLYCOL 3350) 17 Gm Powd.pack, 17 GM PO DAILY PRN for CONSTIPATION, #30 PKT Prov:MICHAEL CALDWELL MD 10/14/18 Lidocaine (Lidocaine PATCH ) 1 Each Adh..patch, 1 PATCH TD DAILY for chest wall pain for 30 Days, #30 PATCH Prov:ROSALEE DAVIES MD 10/10/18 Albuterol Sulfate (Proair Hfa) 8.5 Gm Hfa.aer.ad, 2.5 MG NEB PRN Q4HRS PRN for SHORTNESS OF BREATH for 30 Days, #1 INHALER Prov:ROSALEE DAVIES MD 10/10/18 Cetirizine Hcl (CETIRIZINE HCL) 10 Mg Tablet, 10 MG PO DAILY for allergies for 30 Days, #30 TAB Prov:ROSALEE DAVIES MD 10/10/18 Calcium Carbonate/Vitamin D3 (OYSTER SHELL 500 MG + VIT D TB) 1 Each Tablet, 1 TAB PO BIDWMEALS for 30 Days, #60 TAB Prov:KATHERINE WRAD MD 01/31/18 Aspirin (ASPIRIN EC) 325 Mg Tablet.dr, 325 MG PO DAILYWBKFT for 30 Days, #30 TAB.SR 2 Refills Prov:MICHAEL CALDWELL MD 10/25/17 Reported Medications Doxazosin Mesylate (DOXAZOSIN MESYLATE) 4 Mg Tablet, 4 MG PO HS for HTN, TAB 11/29/18 Carvedilol (CARVEDILOL ) 12.5 Mg Tablet, 12.5 MG PO BIDWMEALS for CARDIAC, TAB 11/29/18 Clonidine Hcl (CLONIDINE HCL) 0.2 Mg Tablet, 0.2 MG PO BID for HTN, TAB 11/29/18 Alprazolam (ALPRAZOLAM) 0.25 Mg Tablet, 1 TAB PO PRN DAILY PRN for ANXIETY / AGITATION, #30 TAB 11/29/18 Duloxetine Hcl (CYMBALTA) 30 Mg Capsule.dr, 1 CAP PO DAILY for depresson, #30 CAP 5 Refills 11/29/18 Hydralazine Hcl (HYDRALAZINE HCL) 50 Mg Tablet, 1 TAB PO BID for HTN, #180 TAB 3 Refills 11/29/18 Discontinued Reported Medications Alprazolam (ALPRAZOLAM) 2 Mg Tablet, 1 TAB PO TID PRN for ANXIETY / AGITATION, #90 TAB 12/01/18 Potassium Chloride (POTASSIUM CHLORIDE) 20 Meq Tablet.er, 20 MEQ PO DAILY for hypokalemia, TAB.SR 11/29/18 Discontinued Scripts Furosemide (FUROSEMIDE) 40 Mg Tablet, 40 MG PO BID92 for 30 Days, #60 TAB Prov:KATHERINE WARD MD 01/31/18 ROSALINO SERRANO MD Dec 07, 2018 09:55
--- NOTE | 2018-12-07 10:00 | PDOC ---
Provider Note Provider Note discharge summary dictated.#[id number]. ROSALINO SERRANO MD Dec 07, 2018 10:00
--- NOTE | 2018-12-07 10:38 | RAD ---
Ultrasound Guided Thoracentesis, right side Indication: 53-year-old with right pleural effusion Sedation: Local anesthesia only Sterility: The procedure was performed in its entirety using appropriate elements of sterile technique. Technique and Findings: Following informed consent, the patient was prepped and draped in the usual sterile fashion. Ultrasound interrogation of the area of interest was performed revealing the presence of a pleural fluid collection. 1% Lidocaine was used to achieve local anesthesia over the area of interest. A small dermatotomy was made and a 5F [id number] catheter was advanced under ultrasound guidance into the pleural space [id number] cc's of thin yellow fluid was removed. The catheter was then removed and hemostasis was achieved with manual compression. Impression: US thoracentesis as described.
--- NOTE | 2018-12-07 10:39 | RAD ---
Limited abdominal ultrasound without comparison for evaluation of ascites. Technique and findings: Real-time grayscale imaging of the abdomen was performed on both the left and right lower abdomen. There is minimal ascites. Impression: 1. Minimal abdominal ascites.
--- NOTE | 2018-12-07 13:20 | PDOC ---
PULMONARY PROGRESS NOTES Subjective BETTER AFTER THORACENTESIS Vitals Vital Signs Date Time Temp Pulse Resp B/P (MAP) Pulse Ox O2 Delivery O2 Flow Rate FiO2 12/07/18 08:00 Room Air 12/07/18 07:00 97.5 57 14 141/96 (111) 97 97.5 12/07/18 03:15 2.0 ROS: No Nausea, No Chest Pain, No Abdominal Pain, No Increase Cough General: Alert, No acute distress Lungs: Clear, Other Cardiovascular: S1, S2 Abdomen: Soft, Other Extremities: No Edema, Other Labs Laboratory Tests Test 12/05/18 18:15 Troponin I Quantitative 0.665 ng/mL (0.000-0.055) Medications Active Scripts Medications Dose Route/Sig Max Daily Dose Days Date Category Amlodipine Besylate 10 Mg Tablet 10 Mg PO DAILY 30 12/02/18 Rx Doxazosin Mesylate 4 Mg Tablet 4 Mg PO HS 11/29/18 Reported Carvedilol (Carvedilol) 12.5 Mg Tablet 12.5 Mg PO BIDWMEALS 11/29/18 Reported Clonidine Hcl 0.2 Mg Tablet 0.2 Mg PO BID 11/29/18 Reported Alprazolam 0.25 Mg Tablet 1 Tab PO PRN DAILY PRN 11/29/18 Reported Cymbalta (Duloxetine Hcl) 30 Mg Capsule. 1 Cap PO DAILY 11/29/18 Reported Hydralazine Hcl 50 Mg Tablet 1 Tab PO BID 11/29/18 Reported Colace (Docusate Sodium) 100 Mg Capsule 100 Mg PO DAILY PRN 10/14/18 Rx Polyethylene Glycol 3350 17 Gm Powd.pack 17 Gm PO DAILY PRN 10/14/18 Rx Lidocaine PATCH (Lidocaine) 1 Each Adh..patch 1 Patch TD DAILY 10/10/18 Rx Proair Hfa (Albuterol Sulfate) 8.5 Gm Hfa.aer.ad 2.5 Mg NEB PRN Q4HRS PRN 30 10/10/18 Rx Cetirizine Hcl 10 Mg Tablet 10 Mg PO DAILY 30 10/10/18 Rx Oyster Shell 500 Mg + Vit D Tb (Calcium Carbonate/Vitamin D3) 1 Each Tablet 1 Tab PO BIDWMEALS 30 01/31/18 Rx Aspirin Ec (Aspirin) 325 Mg Tablet. 325 Mg PO DAILYWBKFT 10/25/17 Rx Impression . IMPRESSION: 1. Recurrent right-sided pleural effusion in a patient who has history of end-stage renal disease and has been on peritoneal dialysis. I 2. No significant history of alcohol use. 3. No significant history of tobacco use. 4. Hypoxia related to recurrent left-sided effusion. 5. Hypertensive urgency. His pressure systolic was 239, also contributing to recurrent congestive heart failure. Plan . BETTER AFTER THORACENTESIS D/C OK BY [place] 12/07 CHICA REGAN MD Dec 07, 2018 13:20
[2018-12-07 13:34] VITALS: BP 162/103
--- NOTE | 2018-12-07 13:59 | PDOC ---
Renal-Progress Notes Subjective Notes Notes FEELING MUCH BETTER History of Present Illness Hx of present illness STABLE Vitals Vitals Vital Signs Date Time Temp Pulse Resp B/P (MAP) Pulse Ox O2 Delivery O2 Flow Rate FiO2 12/07/18 08:00 Room Air 12/07/18 07:00 97.5 57 14 141/96 (111) 97 97.5 12/07/18 03:15 2.0 Weight Weight [ ] I.O. Intake and Output Intake and Output 12/07/18 07:00 Intake Total 450 ml Output Total 1500 ml Balance -1050 ml Intake Oral 450 ml Output Chest Tube Drainage Total 1500 ml Micro Micro Microbiology 12/05/18 Blood Culture - Preliminary, Resulted NO GROWTH AFTER 2 DAYS Review of Systems Constitutional: yes: weakness, alert, oriented Ears/Nose/Throat: Yes: no symptom reported Eyes: Yes: no symptom reported Pulmonary: Yes dyspnea Cardiovascular: Yes no symptom reported Gastrointestional: Yes: constipation, other (DISTENTION) Genitourinary: Yes: no symptom reported Musculoskeletal: Yes: muscle stiffness Skin: Yes no symptom reported Psychiatric/Neurological: Yes: no symptom reported Endocrine: Yes: no symptom reported Physical Exam General Appearance: no apparent distress Respiratory: decreased breath sounds Heart: S1S2 Abdomen: soft, distension Genitourinary: bladder flat Extremities: pulses present, no edema, atrophy Neurology: alert, oriented, follow commands Assessment Assessment IMP DYSPNEA-IMPROVED RECURRENT RIGHT SIDED PLEURAL EFFUSION RECURRENT ASCITES-PROB NEPHROGENIC VS PORTAL HYPERTENSION MALIGNANT HTN DUE TO NON COMPLIANCE ESRD PLAN THORACENTESIS DONE WILL NEED PARACENTESIS-DRAIN VIA PD CATHETER PT WILL NO LONGER BE ON PD HD TODAY UF TO DW WILL ASK SW TO SET UP OP HOME HEALTH TO TEACH HIM HOW TO DRAIN INTO A BAG(WHICH HE KNOWS) BUT THINK THEY WILL NEED TO BE INVOLVED FOR HIM TO GET SUPPLIES-D/W SW YESTERDAY OP HD HAS BEEN SET UP [facility] MED COMPLIANCE NEED HH SET UP BEFORE LEAVING D/C PLANS NOTED OSIRIS MEADOWS MD Dec 07, 2018 13:59
[2018-12-07] MEDS: CARVEDILOL 12.5 MG TABLET. PO SCH (14:14)
[2018-12-07] MEDS: ASPIRIN ENTERIC COATED 325 MG TABLET.DR. PO SCH (14:15)
[2018-12-07] MEDS: amLODIPine BESYLATE 10 MG TABLET PO SCH (14:15)
[2018-12-07] MEDS: CALCIUM CARB/VIT D3 500/200 TABLET. PO SCH (14:15)
[2018-12-07] MEDS: DULoxetine HCL 30 MG CAPSULE.DR PO SCH (14:15)
[2018-12-07] MEDS: cloNIDine HCL 0.2 MG TABLET PO SCH (14:15)
[2018-12-07] MEDS: CETIRIZINE HCL 10 MG TABLET. PO SCH (14:16)
--- NOTE | 2018-12-07 14:47 | NUR ---
JOHNATHON following pt. Orders faxed to [facility] and they will see pt tomorrow. [facility] pt is discharging today. Pt aware of plans and agreeable. Discussed with RN.
[2018-12-07 15:00] VITALS: BP 131/87
--- NOTE | 2018-12-07 15:55 | RAD ---
Chest radiograph 12/07/2018 2:00 PM INDICATION: Pleural effusion COMPARISON: 12/06/2018 TECHNIQUE: Frontal and lateral views of the chest are provided. FINDINGS: The cardiomediastinal silhouette is similar in appearance. Interval decrease in size of previously moderate and now small right pleural effusion. There is persistent elevation the right hemidiaphragm. Left lung is clear. There is no significant pulmonary vascular congestion. No pneumothorax. Anterior and posterior cervical fusion hardware is partially profiled. IMPRESSION: Improving right pleural effusion, previously moderate and currently small in volume. There is persistent adjacent compressive atelectasis versus infiltrate. Electronically signed by: Payton Bernabe MD (12/07/2018 3:52 PM) [id number]
--- NOTE | 2018-12-07 17:34 | NUR ---
Discharge Note: FRANKIE GARCIA T6 [facility] Discharge instructions and discharge home medications reviewed with [g JOSUE.DC9] and a copy given. All questions have been answered and understanding verbalized. The following instructions and handouts were given: Diet, activity, medication list and follow up instructions provided to patient. [] Discontinued lines and drains: IV discontinued and catheter intact. Patient discharged to [g JOSUE.DC3] with[g JOSUE.DC5]via [g JOSUE.DC4]
--- NOTE | 2018-12-07 22:55 | DS ---
DATE OF DISCHARGE: 12/07/2018 REASON FOR ADMISSION TO THE HOSPITAL: Recurrent pleural effusion, malignant hypertension. CONSULTATIONS: Dr. Bhat, Dr. Shaffer and Dr. Hurd. PROCEDURES DONE: 1. Thoracentesis. 2. Hemodialysis. HOSPITAL COURSE: The patient is a 53-year-old male patient, noncompliant, has multiple admissions for recurrent pleural effusions and he was scheduled to transition from peritoneal dialysis to hemodialysis, supposed to happen on Wednesday, but on Wednesday, the patient was having shortness of breath, came to the Emergency Room, blood pressure was high. He was found to have fluid accumulated in the right pleural space again, IR was consulted, 1.5 liters was removed. The patient was dialyzed while he is in the hospital and the patient was on peritoneal dialysis before and the fluid from the peritoneal space is going to the right pleura. We have decided to stop peritoneal dialysis and transitioned to hemodialysis. The patient had 3 admissions in last 1 month and recommended to go to SNU, but the patient refused to go to SNU. He wants to go home. The patient is discharged home with home health and his blood pressure remained stable while he was in the hospital, is on the same medications at home, but his blood pressure always goes high when he comes to the hospital. Thus, likely he is noncompliant. The patient is at this time stable to be discharged, but chance of readmission to the hospital is high. Discussed with his primary Renal doctor, Dr. Kovacs, aware of the patient's situation. FINAL DIAGNOSES: 1. Recurrent pleural effusion. Thoracocentesis was done. 2. End-stage renal disease. The patient is being transitioned from peritoneal dialysis to hemodialysis. 3. Malignant hypertension. 4. Noncompliance. 5. Slight elevation in troponin secondary to demand ischemia. The patient had a cardiac catheterization last year, no major blockages. DISPOSITION: Home. See [facility] for discharge medications. PROGNOSIS: Guarded. Chance for readmission to the hospital is high, stable now for the time of discharge. The patient wishes to go to SNU or rehabilitation. ROSALINO SERRANO MD DR: RENATO/savannah JOB#: [id number] / [id number] ecc NORRIS BLAIR
== END 2018-12-07 17:05 | disposition home health service (06) | DRG 291 ==
LOC: ER 08:35 → 6 SOUTH 09:11
PROVIDERS: ADMIT Internal Medicine; ATTEND Internal Medicine
PROC: 5A1D70Z Performance of Urinary Filtration, Intermittent, Less than 6 Hours Per Day (ICD-10-PCS; principal; 2018-12-05)
PROC: 5A1D70Z Performance of Urinary Filtration, Intermittent, Less than 6 Hours Per Day (ICD-10-PCS; 2018-12-06)
PROC: 0W993ZZ Drainage of Right Pleural Cavity, Percutaneous Approach (ICD-10-PCS; 2018-12-07)
DX: I13.2 Hypertensive heart and chronic kidney disease with heart failure and with stage 5 chronic kidney disease, or end stage renal disease (principal); J96.01 Acute respiratory failure with hypoxia; N18.6 End stage renal disease; I50.43 Acute on chronic combined systolic (congestive) and diastolic (congestive) heart failure; J90 Pleural effusion, not elsewhere classified; I16.1 Hypertensive emergency; R18.8 Other ascites; I24.8 Other forms of acute ischemic heart disease; J45.909 Unspecified asthma, uncomplicated; Z82.3 Family history of stroke; Z82.49 Family history of ischemic heart disease and other diseases of the circulatory system; Z86.73 Personal history of transient ischemic attack (TIA), and cerebral infarction without residual deficits; Z91.19 Patient's noncompliance with other medical treatment and regimen; Z99.2 Dependence on renal dialysis; F41.9 Anxiety disorder, unspecified; G62.9 Polyneuropathy, unspecified; M19.90 Unspecified osteoarthritis, unspecified site
CPT/HCPCS: 32555; 36415; 71045; 71046; 76705; 80053; 82550; 83605; 83735; 83880; 84484; 85025; 85610; 87040; 93005; 94618; 94640; J2060; J2930; J3490; J7620; G0378

== ENCOUNTER 2019-01-01 09:15 | Inpatient (IN) | payer OTHER ==
[~2019-01-01] VITALS: Ht 172.7 cm; Wt 54.6 kg
[~2019-01-01 09:15] MED LIST changes: +ATOR10TA60 PO; -CLON1PAT2 TD; +CLON1PAT6 TD
[2019-01-01] MEDS ORDERED: FUROSEMIDE 40 MG TABLET. PO ONE (10:00)
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
[2019-01-01 10:30] LABS: BASO # 0.2 x10^3/uL (0.0-0.2); BASO % 3 % (0-3); EOS # 0.2 x10^3/uL (0.0-0.7); EOS % 4 % (0-3); HEMATOCRIT 37.3 % (39.0-53.0); HEMOGLOBIN 12.4 g/dL (13.0-17.5); LYMPH # 0.7 x10^3/uL (1.0-4.8); LYMPH % 12 % (24-48); MEAN CORPUSCULAR HEMOGLOBIN 29 pg (25-35); MEAN CORPUSCULAR HGB CONC 33 g/dL (31-37); MEAN CORPUSCULAR VOLUME 87 fL (79-100); MONO # 0.6 x10^3/uL (0.0-1.1); MONO % 10 % (0-9); NEUT % 72 % (31-73); PLATELET COUNT 201 x10^3/uL (140-400); RED CELL DISTRIBUTION WIDTH 16.1 % (11.5-14.5); WHITE BLOOD COUNT 5.6 x10^3/uL (4.0-11.0)
[2019-01-01] MEDS ORDERED: FUROSEMIDE 100 MG/10 ML VIAL. IVP ONE (10:30)
--- NOTE | 2019-01-01 10:30 | RAD ---
EXAM: AP View of the chest DATE: 01/01/2019 10:15 AM INDICATION: Shortness of air COMPARISON: 12/20/2018 FINDINGS- IMPRESSION: Moderate cardiomegaly. Aorta is tortuous. Moderate right pleural effusion. Right lung base airspace opacities likely atelectasis. No pneumothorax. When compared to 12/20/2018, pleural effusion and lung base opacities are grossly stable. Electronically signed by: Ishmael Ibrahim MD (01/01/2019 10:27 AM) [facility] [place]
[2019-01-01 10:43] LABS: CALCIUM 8.8 mg/dL (8.5-10.1); CREATININE 7.2 mg/dL (0.7-1.3); GFR 9.7
[2019-01-01 10:48] LABS: ALBUMIN 3.2 g/dL (3.4-5.0); ALBUMIN/GLOBULIN RATIO 0.8 (1.0-1.7); TOTAL BILIRUBIN 0.7 mg/dL (0.2-1.0); TOTAL PROTEIN 7.1 g/dL (6.4-8.2)
[2019-01-01 10:50] LABS: POTASSIUM 5.2 mmol/L (3.5-5.1)
[2019-01-01] MEDS ORDERED: ONDANSETRON PF 4 MG/2 ML VIAL. IV PRN (11:00)
[2019-01-01 12:31] LABS: BILIRUBIN,URINE NEGATIVE (NEG); CLARITY,URINE CLEAR; COLOR,URINE YELLOW; NITRITE,URINE NEGATIVE (NEG); PH,URINE 5.5; PROTEIN,URINE 100 mg/dL (NEG-TRACE); UROBILINOGEN,URINE 0.2 mg/dL (0.2 mg/dL)
[2019-01-01 13:00] LABS: BACTERIA,URINE 0 /HPF (0-FEW); GRANULAR CASTS,URINE OCCASIONAL /HPF; HYALINE CASTS, URINE FEW /HPF; RBC,URINE 0 /HPF (0-2); WBC,URINE 0 /HPF (0-4)
[2019-01-01 14:20] VITALS: BP 227/140
--- NOTE | 2019-01-01 15:00 | PDOC2 ---
CONSULT Date of Consult Date of Consult DATE: 01/01/19 TIME: 14:39 Reason for Consult Reason for Consult: ESRD Source Source: Chart review, Patient History of Present Illness Reason for Visit: Patient is a 53 year old AA male esrd who presents with has been in snf and last got his dialysis on Wednesday he has not had Wednesday and Wednesday's dialysis. Patient states now he is very short of air fluid last 3 or 4 days. Patient's primary care is Dr. Callaway. Patient is on 5 L and 96%. Patient has a history of COPD, and STEMI diastolic heart failure, malignant hypertension. Patient states he's taken off his medications this morning. Patient's blood pressure 220/155. No extremity edema. Patient states he is also having chest pain that goes across his chest is aching. Rates his pain a 8 out of 10. CXr no e/Pul congestion , Pleural fluid Rt Moderate, Has had Thoracentesis in past Past Medical History Cardiovascular: HTN Pulmonary: Asthma CENTRAL NERVOUS SYSTEM: CVA, Periperal neuropathy GI: No pertinent hx Heme/Onc: Anemia NOS Hepatobiliary: No pertinent hx Psych: Anxiety Infectious disease: No pertinent hx Renal/: Chronic renal failure Endocrine: No pertinent hx, Hyperparathyroidism Past Surgical History Past Surgical History: Hernia Repair, Other Family History Family History: Heart Disease, Hypertension, Stroke Social History ALCOHOL: none Drugs: None Lives: with Family Current Problem List Problem List Problems Medical Problems: (1) Pleural effusion on right Status: Acute Current Medications Current Medications Current Medications Furosemide (Lasix) 80 mg 1X ONCE PO ; Start 01/01/19 at 10:00; Stop 01/01/19 at 10:01; Status Cancel Furosemide (Lasix) 80 mg 1X ONCE IVP Last administered on 01/01/19at 10:46; Start 01/01/19 at 10:30; Stop 01/01/19 at 10:31; Status DC Ondansetron HCl (Zofran) 4 mg PRN Q8HRS PRN IV NAUSEA/VOMITING; Start 01/01/19 at 11:00; Stop 01/02/19 at 10:59 Fentanyl Citrate (Fentanyl 2ml Vial) 50 mcg PRN Q1HR PRN IV PAIN; Start 01/01/19 at 11:00; Stop 01/02/19 at 10:59 Active Scripts Active Atorvastatin Calcium 10 Mg Tablet 10 Mg PO QHS 30 Days Colace (Docusate Sodium) 100 Mg Capsule 100 Mg PO DAILY PRN Polyethylene Glycol 3350 17 Gm Powd.pack 17 Gm PO DAILY PRN Lidocaine PATCH (Lidocaine) 1 Each Adh..patch 1 Patch TD DAILY 30 Days Proair Hfa (Albuterol Sulfate) 8.5 Gm Hfa.aer.ad 2.5 Mg NEB PRN Q4HRS PRN 30 Days Cetirizine Hcl 10 Mg Tablet 10 Mg PO DAILY 30 Days Oyster Shell 500 Mg + Vit D Tb (Calcium Carbonate/Vitamin D3) 1 Each Tablet 1 Tab PO BIDWMEALS 30 Days Aspirin Ec (Aspirin) 325 Mg Tablet. 325 Mg PO DAILYWBKFT 30 Days Reported Carvedilol (Carvedilol) 12.5 Mg Tablet 12.5 Mg PO BIDWMEALS Clonidine Hcl 0.2 Mg Tablet 0.2 Mg PO BID Alprazolam 0.25 Mg Tablet 1 Tab PO PRN DAILY PRN Cymbalta (Duloxetine Hcl) 30 Mg Capsule. 1 Cap PO DAILY Hydralazine Hcl 50 Mg Tablet 1 Tab PO BID Allergies Allergies: Coded Allergies: lisinopril (Verified Allergy, Severe, Swelling, 06/03/18) codeine (Verified Allergy, Intermediate, itching, 12/05/18) TAKES LORTAB AT HOME IN THE PAST I S O L A T I O N *CONTACT* (Verified Allergy, Unknown, 06/03/18) +MRSA nares 01/15/18 morphine (Verified Allergy, Unknown, 12/06/18) ROS Review of System Per HPI Physical Exam Physical Exam GENERAL- Mild distress HEENT: OM moist NECK: Supple CARDIOVASCULAR: S1, S2. LUNGS: Diminished breath sounds right base, non labored ABDOMEN: Soft, has a peritoneal dialysis catheter. : No Zamorano. EXT: edema + NEURO : AxOx 3 Vital Signs Vital Signs Date Time Temp Pulse Resp B/P (MAP) Pulse Ox O2 Delivery O2 Flow Rate FiO2 01/01/19 13:00 70 15 205/129 (154) 98 Nasal Cannula 4.0 01/01/19 09:21 97.7 97.7 Assessment & Plan ESRD- MWF Transitioned from PD to HD 2/2 Non compliance and admissions for Vol Overload Last HD was on wednesday- missed W/F- states was in snf Emergent Hd today due to SOB (though most likely due to Pl effusion - Hx of Thoracentesis in past as well)) Dialysis as ordered, Miguel Duque HTN - BP very high at presentation to the ER Continue home antihypertensives, Dialysis with UF today Right pleural effusion- s/p Thoracentesis on 11/29- 2.2 lts removed Labs Labs Laboratory Tests Test 01/01/19 10:20 01/01/19 11:57 White Blood Count 5.6 x10^3/uL (4.0-11.0) Red Blood Count 4.30 x10^6/uL (4.30-5.70) Hemoglobin 12.4 g/dL (13.0-17.5) Hematocrit 37.3 % (39.0-53.0) Mean Corpuscular Volume 87 fL (79-100) Mean Corpuscular Hemoglobin 29 pg (25-35) Mean Corpuscular Hemoglobin Concent 33 g/dL (31-37) Red Cell Distribution Width 16.1 % (11.5-14.5) Platelet Count 201 x10^3/uL (140-400) Neutrophils (%) (Auto) 72 % (31-73) Lymphocytes (%) (Auto) 12 % (24-48) Monocytes (%) (Auto) 10 % (0-9) Eosinophils (%) (Auto) 4 % (0-3) Basophils (%) (Auto) 3 % (0-3) Neutrophils # (Auto) 4.0 x10^3/uL (1.8-7.7) Lymphocytes # (Auto) 0.7 x10^3/uL (1.0-4.8) Monocytes # (Auto) 0.6 x10^3/uL (0.0-1.1) Eosinophils # (Auto) 0.2 x10^3/uL (0.0-0.7) Basophils # (Auto) 0.2 x10^3/uL (0.0-0.2) Sodium Level 140 mmol/L (136-145) Potassium Level 5.2 mmol/L (3.5-5.1) Chloride Level 106 mmol/L (98-107) Carbon Dioxide Level 20 mmol/L (21-32) Anion Gap 14 (6-14) Blood Urea Nitrogen 93 mg/dL (8-26) Creatinine 7.2 mg/dL (0.7-1.3) Estimated GFR (Cockcroft-Gault) 9.7 BUN/Creatinine Ratio 13 (6-20) Glucose Level 101 mg/dL (70-99) Calcium Level 8.8 mg/dL (8.5-10.1) Total Bilirubin 0.7 mg/dL (0.2-1.0) Aspartate Amino Transf (AST/SGOT) 26 U/L (15-37) Alanine Aminotransferase (ALT/SGPT) 24 U/L (16-63) Alkaline Phosphatase 143 U/L (46-116) Troponin I Quantitative 0.103 ng/mL (0.000-0.055) Total Protein 7.1 g/dL (6.4-8.2) Albumin 3.2 g/dL (3.4-5.0) Albumin/Globulin Ratio 0.8 (1.0-1.7) Urine Collection Type Unknown Urine Color Yellow Urine Clarity Clear Urine pH 5.5 Urine Specific [place] 1.015 Urine Protein 100 mg/dL (NEG-TRACE) Urine Glucose (UA) Negative mg/dL (NEG) Urine Ketones (Stick) Negative mg/dL (NEG) Urine Blood Negative (NEG) Urine Nitrite Negative (NEG) Urine Bilirubin Negative (NEG) Urine Urobilinogen Dipstick 0.2 mg/dL (0.2 mg/dL) Urine Leukocyte Esterase Negative (NEG) Urine RBC 0 /HPF (0-2) Urine WBC 0 /HPF (0-4) Urine Bacteria 0 /HPF (0-FEW) Urine Hyaline Casts Few /HPF Urine Granular Casts Occasional /HPF Urine Mucus Slight /LPF Laboratory Tests Test 01/01/19 10:20 01/01/19 11:57 White Blood Count 5.6 x10^3/uL (4.0-11.0) Red Blood Count 4.30 x10^6/uL (4.30-5.70) Hemoglobin 12.4 g/dL (13.0-17.5) Hematocrit 37.3 % (39.0-53.0) Mean Corpuscular Volume 87 fL (79-100) Mean Corpuscular Hemoglobin 29 pg (25-35) Mean Corpuscular Hemoglobin Concent 33 g/dL (31-37) Red Cell Distribution Width 16.1 % (11.5-14.5) Platelet Count 201 x10^3/uL (140-400) Neutrophils (%) (Auto) 72 % (31-73) Lymphocytes (%) (Auto) 12 % (24-48) Monocytes (%) (Auto) 10 % (0-9) Eosinophils (%) (Auto) 4 % (0-3) Basophils (%) (Auto) 3 % (0-3) Neutrophils # (Auto) 4.0 x10^3/uL (1.8-7.7) Lymphocytes # (Auto) 0.7 x10^3/uL (1.0-4.8) Monocytes # (Auto) 0.6 x10^3/uL (0.0-1.1) Eosinophils # (Auto) 0.2 x10^3/uL (0.0-0.7) Basophils # (Auto) 0.2 x10^3/uL (0.0-0.2) Sodium Level 140 mmol/L (136-145) Potassium Level 5.2 mmol/L (3.5-5.1) Chloride Level 106 mmol/L (98-107) Carbon Dioxide Level 20 mmol/L (21-32) Anion Gap 14 (6-14) Blood Urea Nitrogen 93 mg/dL (8-26) Creatinine 7.2 mg/dL (0.7-1.3) Estimated GFR (Cockcroft-Gault) 9.7 BUN/Creatinine Ratio 13 (6-20) Glucose Level 101 mg/dL (70-99) Calcium Level 8.8 mg/dL (8.5-10.1) Total Bilirubin 0.7 mg/dL (0.2-1.0) Aspartate Amino Transf (AST/SGOT) 26 U/L (15-37) Alanine Aminotransferase (ALT/SGPT) 24 U/L (16-63) Alkaline Phosphatase 143 U/L (46-116) Troponin I Quantitative 0.103 ng/mL (0.000-0.055) Total Protein 7.1 g/dL (6.4-8.2) Albumin 3.2 g/dL (3.4-5.0) Albumin/Globulin Ratio 0.8 (1.0-1.7) Urine Collection Type Unknown Urine Color Yellow Urine Clarity Clear Urine pH 5.5 Urine Specific Republic 1.015 Urine Protein 100 mg/dL (NEG-TRACE) Urine Glucose (UA) Negative mg/dL (NEG) Urine Ketones (Stick) Negative mg/dL (NEG) Urine Blood Negative (NEG) Urine Nitrite Negative (NEG) Urine Bilirubin Negative (NEG) Urine Urobilinogen Dipstick 0.2 mg/dL (0.2 mg/dL) Urine Leukocyte Esterase Negative (NEG) Urine RBC 0 /HPF (0-2) Urine WBC 0 /HPF (0-4) Urine Bacteria 0 /HPF (0-FEW) Urine Hyaline Casts Few /HPF Urine Granular Casts Occasional /HPF Urine Mucus Slight /LPF Review All relevant outside records, renal labs, imaging studies, telemetry/EKG's were reviewed. Images Images Moderate cardiomegaly. Aorta is tortuous. Moderate right pleural effusion. Right lung base airspace opacities likely atelectasis. No pneumothorax. When compared to 12/20/2018, pleural effusion and lung base opacities are grossly stable. MAGDIEL VOGEL MD Jan 01, 2019 15:00
[2019-01-01] MEDS ORDERED: DIALYSIS PATIENT. MC PRN ×2 (15:45)
[2019-01-01] MEDS: fentaNYL PF VIAL 100 MCG/2 ML VIAL IV PRN ×2 (15:51→17:30)
[2019-01-01 18:35] VITALS: BP 180/118
[2019-01-01] MEDS ORDERED: DOCUSATE SODIUM 100 MG CAPSULE. PO PRN (18:45)
[2019-01-01] MEDS ORDERED: POLYETHYLENE GLYCOL 3350 17 GM PACKET. PO PRN (18:45)
[2019-01-01] MEDS ORDERED: ALBUTEROL SULFATE 2.5 MG/3 ML NEBU. NEB PRN (18:45)
[2019-01-01] MEDS: CARVEDILOL 12.5 MG TABLET. PO SCH (19:24)
[2019-01-01 20:30] VITALS: BP 163/114
[2019-01-01] MEDS: ALPRAZolam 0.25 MG TABLET PO PRN (20:32)
[2019-01-01] MEDS: cloNIDine HCL 0.2 MG TABLET PO SCH (21:08)
[2019-01-01] MEDS: ATORVASTATIN CALCIUM 10 MG TABLET. PO SCH (21:09)
[2019-01-01 23:05] VITALS: BP 180/118
[2019-01-01] MEDS: hydrALAZINE 20 MG/ML VIAL. IVP PRN (23:47)
[2019-01-02 00:12] VITALS: BP 153/94
[2019-01-02] MEDS: fentaNYL PF VIAL 100 MCG/2 ML VIAL IV PRN (00:18)
[2019-01-02 03:00] VITALS: BP 133/95
--- NOTE | 2019-01-02 06:21 | EKG ---
[facility] [address] [place] [address] Test Date: 2019-01-01 Test Time: 09:41:22 Pat Name: FRANKIE GARCIA Department: Room: Gender: M Weeder: : 1965 Requested By: DELROY NESS Order Number: [id number] Reading MD: Measurements Intervals [place] Rate: 77 P: 48 ME: 122 QRS: 27 QRSD: 86 T: 47 QT: 418 QTc: 480 Interpretive Statements SINUS RHYTHM QRS(T) CONTOUR ABNORMALITY CONSIDER INFERIOR MYOCARDIAL DAMAGE T ABNORMALITY IN ANTEROLATERAL LEADS PROLONGED QT ABNORMAL ECG No previous ECG available for comparison
[2019-01-02 06:49] VITALS: BP 168/108
[2019-01-02] MEDS: CALCIUM CARB/VIT D3 500/200 TABLET. PO SCH ×2 (08:00→15:59)
[2019-01-02] MEDS: CARVEDILOL 12.5 MG TABLET. PO SCH ×2 (08:00→15:59)
[2019-01-02] MEDS: ASPIRIN ENTERIC COATED 325 MG TABLET.DR. PO SCH (08:00)
[2019-01-02] MEDS ORDERED: IV NORMAL SALINE 1000ML BAG 1,000 ML IV PRN ×2 (08:22)
[2019-01-02] MEDS ORDERED: DIALYSIS PATIENT. MC PRN ×2 (08:30)
[2019-01-02] MEDS ORDERED: ALBUMIN HUMAN 25% 200 ML IV PRN (08:30)
[2019-01-02] MEDS ORDERED: diphenhydrAMINE 50 MG/ML VIAL IV PRN ×2 (08:30)
[2019-01-02] MEDS: cloNIDine HCL 0.2 MG TABLET PO SCH ×3 (09:00→20:39)
[2019-01-02] MEDS ORDERED: ACETAMINOPHEN 325 MG TABLET. PO PRN (09:00)
[2019-01-02] MEDS: LIDOCAINE (700MG/PATCH) PATCH. TD SCH (09:00)
--- NOTE | 2019-01-02 10:18 | PN ---
DATE: 01/02/2019 SUBJECTIVE: The patient is resting, slightly propped up in bed, in no apparent respiratory distress. Awake, alert. Denied any chest pain. Denied any cough, phlegm or hemoptysis. Denied any chills, rigors, or fever. PHYSICAL EXAMINATION: GENERAL: When I examined him, he looked pale. No jaundice, cyanosis, or thyromegaly. No jugular venous distension. No limb edema. VITAL SIGNS: His heart rate was 66, blood pressure 168/108, temperature was 98.3, respiratory rate was 16, and oxygen saturation 100% on 2 liters of oxygen. HEAD, EYES, EARS, NOSE AND THROAT: Showed normocephalic, atraumatic. NECK: Supple. HEART: Showed normal first and second heart sounds. No gallop, rub or murmur. CHEST: Showed central trachea, equally reduced expansion, reduced air entry, vesicular sounds. I could not appreciate any crepitation. He has dull percussion noted and absent breath sounds on the right side posteriorly. No rhonchi. ABDOMEN: Scaphoid, soft, nontender. NEUROLOGIC: He was awake, alert, responding appropriately. All cranial nerves are intact. He moves extremities without difficulty. LABORATORY DATA: No lab works done. He was dialyzed yesterday and about 3 liters of fluid were ultrafiltrated. We resumed all his medication last night. His blood pressure is much better controlled, although not optimally yet. His troponin was elevated at 0.103. I will check another troponin. Consult the Cardiology team. He has also large left-sided pleural effusion and we will consult the fast food team member to see whether he would benefit from another thoracentesis. ASSESSMENT: 1. Malignant hypertension, slightly better controlled. 2. Acute pulmonary edema, improved. 3. End-stage renal failure, was dialyzed yesterday and he is scheduled for another dialysis session today. 4. Other medical problems include hypertension, hyperlipidemia, chronic obstructive pulmonary disease. NORRIS BENNETT MD DR: AYLIN/savannah JOB#: [id number] / [id number]
--- NOTE | 2019-01-02 10:21 | HP ---
ADMIT DATE: 01/01/2019 HISTORY OF PRESENT ILLNESS: The patient is a 53-year-old -[place] male patient who presented to the Emergency Room of the [facility] with shortness of breath, as he missed his dialysis last Wednesday and Wednesday. Apparently, he had been in care home. 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 His primary care physician is Dr. Callaway. The patient is on 5 liters of oxygen, maintaining his oxygen saturation at 96%. Air entry was diminished. He is known to have COPD and ST-segment elevation myocardial infarction, end-stage renal disease, diastolic congestive heart failure, and malignant hypertension. When arrived into the Emergency Room, his blood pressure was 120/155. No extremity edema. He did also complain of a chest pain that goes across his chest and aching, rated the pain as 8/10. He apparently was given IV Lasix 80 mg and was admitted to the ICU as we consulted the Nephrology team to start him on dialysis. PAST MEDICAL HISTORY: Significant for hypertension, bronchial asthma, cerebrovascular accident, peripheral neuropathy, anemia, chronic renal failure, and hyperparathyroidism. PAST SURGICAL HISTORY: Significant for hernia repair. Other surgical procedures include arteriovenous fistula placement, lumbar fusion, corneal transplant, and paracentesis and thoracentesis. FAMILY HISTORY: Significant for heart disease, hypertension, stroke. SOCIAL HISTORY: He lives with his family. He does not smoke, drink alcohol, or use recreational drugs. ALLERGIES: HE IS ALLERGIC TO CODEINE, LISINOPRIL, AND MORPHINE. MEDICATIONS: He is currently on following medications: He is on cetirizine 10 mg once a day, albuterol sulfate 2.5 mg by nebulizer every 4 hours, atorvastatin calcium 10 mg at bedtime, clonidine 0.2 mg twice a day, hydralazine 50 mg twice a day, carvedilol 12.5 mg twice a day with meals. He is on aspirin 325 mg once a day, raloxifene 30 mg once a day, alprazolam 0.25 mg daily, calcium carbonate with vitamin D3 one tablet twice a day with meals, Colace 100 mg daily, polyethylene glycol 17 grams daily. He is also on MiraLax 17 grams daily, Lidoderm patch applied topically once a day. REVIEW OF SYSTEMS: As per history of present illness. PHYSICAL EXAMINATION: GENERAL: On arrival to the Emergency Room, the patient was clearly tachypneic, hypertensive, pale, but no jaundice, cyanosis, or thyromegaly. No jugular venous distension. No limb edema. VITAL SIGNS: His heart rate was 84, blood pressure was 170/155, temperature was 97.7, respiratory rate was 19, and oxygen saturation was 95% on 5 liters of oxygen. HEAD, EYES, EARS, NOSE, AND THROAT: Showed normocephalic, atraumatic. NECK: Supple. HEART: Showed normal first and second heart sounds. No gallop or murmur. CHEST: Shows central trachea, equally reduced expansion, reduced air entry, vesicular sounds with dull percussion noted and absent breath sounds in the right side, very few scattered rhonchi. ABDOMEN: Scaphoid, soft, nontender. NEUROLOGIC: He is awake, alert, responding appropriately. All cranial nerves intact. EXTREMITIES: He moves extremities without difficulty. LABORATORY DATA: His lab work on admission showed a white cell count 5600, hemoglobin 12.4, hematocrit 37.3, MCV 87, and platelet count 201,000 with normal manual differential. His chemistry showed a serum sodium 140, potassium 5.2, chloride 106, bicarbonate 20, anion gap of 14, BUN 93, creatinine was 7.2, estimated GFR was 9.7, glucose was 101, calcium was 8.8. Total bilirubin, AST, ALT were normal. Alkaline phosphatase is slightly elevated. Troponin was 0.103. Total protein was 7.1, albumin was 3.2. Urinalysis was essentially unremarkable. His chest x-ray showed that the patient has moderate cardiomegaly; aorta is tortuous; moderate right pleural effusion; right lung base airspace opacities, likely atelectasis; no pneumothorax. ASSESSMENT AND PLAN: Compared to previous x-rays, pleural effusion and lung base opacities are grossly stable. We did consult the christmas tree farmer. I would also consult the leather production worker and rn pediatric to see whether thoracentesis warranted. His troponin is elevated, which could be just because of his underlying end-stage kidney disease; however, he has multiple risk factors for coronary artery disease. NORRIS BENNETT MD DR: AYLIN/savannah JOB#: [id number] / [id number]
--- NOTE | 2019-01-02 10:29 | PDOC2 ---
ELKIN SMITH SPEECH THERAPY DIRECTOR 01/02/19 1029: CARDIAC CONSULT DATE OF CONSULT Date of Consult DATE: 01/02/19 TIME: 10:18 REASON FOR CONSULT Reason for Consult: Elevated troponin REFERRING PHYSICIAN Referring Physician: Dr. Sheffield SOURCE Source: Chart review, Patient HISTORY OF PRESENT ILLNESS HISTORY OF PRESENT ILLNESS This is a 53 yo male, well know to use from previous admissions, who presented secondary to shortness of breath. Patient missed HD Wednesday and Wednesday as he was in jails. Has had progressive dyspnea. Also complained of aching pain across his central chest. No associated dizziness, diaphoresis, or nausea/vomiting. PAST MEDICAL HISTORY Past Medical History Cardiovascular: HTN, CHF (diastolic) Pulmonary: Asthma CENTRAL NERVOUS SYSTEM: CVA, Peripheral neuropathy GI: No pertinent hx Heme/Onc: Anemia NOS Hepatobiliary: No pertinent hx Psych: Anxiety Musculoskeletal: Osteoarthritis Rheumatologic: No pertinent hx Infectious disease: No pertinent hx ENT: No pertinent hx Renal/: Chronic renal failure (ESRD on HD, previously on PD Endocrine: No pertinent hx Dermatology: No pertinent hx PAST SURGICAL HISTORY Past Surgical History Other (lumbar fusion, L dialysis fistula placement, corneal transplant, paracentesis) FAMILY HISTORY Family History Heart Disease, Hypertension, Stroke SOCIAL HISTORY Social History Smoke: No ALCOHOL: none Drugs: None Lives: with Family CURRENT MEDICATIONS CURRENT MEDICATIONS Current Medications Medications (Trade) Dose Ordered Sig/Sascha Route PRN Reason Start Time Stop Time Status Last Admin Dose Admin Furosemide (Lasix) 80 mg 1X ONCE IVP 01/01/19 10:30 01/01/19 10:31 DC 01/01/19 10:46 Fentanyl Citrate (Fentanyl 2ml Vial) 50 mcg PRN Q1HR PRN IV PAIN 01/01/19 11:00 01/02/19 10:59 01/02/19 00:18 Alprazolam (Xanax) 0.25 mg PRN DAILY PRN PO ANXIETY / AGITATION 01/01/19 18:45 01/01/19 20:32 Atorvastatin Calcium (Lipitor) 10 mg QHS PO 01/01/19 21:00 01/01/19 21:09 Carvedilol (Coreg) 12.5 mg BIDWMEALS PO 01/01/19 19:30 01/01/19 19:24 Clonidine HCl (Catapres) 0.2 mg BID PO 01/01/19 21:00 01/01/19 21:09 Hydralazine HCl (Apresoline) 50 mg BID PO 01/01/19 21:00 01/01/19 21:09 Hydralazine HCl (Apresoline Inj) 10 mg PRN Q4HRS PRN IVP ELEVATED BP, SEE COMMENTS 01/01/19 23:45 01/01/19 23:47 ALLERGIES ALLERGIES: Coded Allergies: lisinopril (Verified Allergy, Severe, Swelling, 06/03/18) codeine (Verified Allergy, Intermediate, itching, 12/05/18) TAKES LORTAB AT HOME IN THE PAST I S O L A T I O N *CONTACT* (Verified Allergy, Unknown, 06/03/18) +MRSA nares 01/15/18 morphine (Verified Allergy, Unknown, 12/06/18) ROS Review of System 14 point ROS conducted with pertinent positives noted above in HPI. PHYSICAL EXAM PHYSICAL EXAM General: alert, oriented HEENT: Atraumatic, Mucous membr. moist/pink Lungs: diminished, bibasilar crackles Heart: Regular rate (SR), Normal S1, Normal S2, Other (3/6 systolic murmur to LLS border) Abdomen: mild ascites Extremities: No cyanosis, 2+ bilateral LE edema Skin: No breakdown, No significant lesion Neuro: , Sensation intact Psych/Mental Status: calm, cooperative MUSCULOSKELETAL: Osteoarthritic changes both hands VITALS/I&O VITALS/I&O: Vital Signs Date Time Temp Pulse Resp B/P (MAP) Pulse Ox O2 Delivery O2 Flow Rate FiO2 01/02/19 07:53 Nasal Cannula 2.0 01/02/19 06:49 98.3 66 16 168/108 (128) 100 98.3 I & O 01/01/19 01/01/19 01/02/19 15:00 23:00 07:00 Intake Total 100 ml 240 ml Output Total 150 ml 0 ml Balance -50 ml 240 ml LABS Lab: Laboratory Tests Test 01/01/19 10:20 01/01/19 11:57 01/02/19 09:00 White Blood Count 5.6 x10^3/uL (4.0-11.0) Red Blood Count 4.30 x10^6/uL (4.30-5.70) Hemoglobin 12.4 g/dL (13.0-17.5) L Hematocrit 37.3 % (39.0-53.0) L Mean Corpuscular Volume 87 fL (79-100) Mean Corpuscular Hemoglobin 29 pg (25-35) Mean Corpuscular Hemoglobin Concent 33 g/dL (31-37) Red Cell Distribution Width 16.1 % (11.5-14.5) H Platelet Count 201 x10^3/uL (140-400) Neutrophils (%) (Auto) 72 % (31-73) Lymphocytes (%) (Auto) 12 % (24-48) L Monocytes (%) (Auto) 10 % (0-9) H Eosinophils (%) (Auto) 4 % (0-3) H Basophils (%) (Auto) 3 % (0-3) Neutrophils # (Auto) 4.0 x10^3/uL (1.8-7.7) Lymphocytes # (Auto) 0.7 x10^3/uL (1.0-4.8) L Monocytes # (Auto) 0.6 x10^3/uL (0.0-1.1) Eosinophils # (Auto) 0.2 x10^3/uL (0.0-0.7) Basophils # (Auto) 0.2 x10^3/uL (0.0-0.2) Sodium Level 140 mmol/L (136-145) Potassium Level 5.2 mmol/L (3.5-5.1) H Chloride Level 106 mmol/L (98-107) Carbon Dioxide Level 20 mmol/L (21-32) L Anion Gap 14 (6-14) Blood Urea Nitrogen 93 mg/dL (8-26) H Creatinine 7.2 mg/dL (0.7-1.3) H Estimated GFR (Cockcroft-Gault) 9.7 BUN/Creatinine Ratio 13 (6-20) Glucose Level 101 mg/dL (70-99) H Calcium Level 8.8 mg/dL (8.5-10.1) Total Bilirubin 0.7 mg/dL (0.2-1.0) Aspartate Amino Transferase (AST) 26 U/L (15-37) Alanine Aminotransferase (ALT) 24 U/L (16-63) Alkaline Phosphatase 143 U/L (46-116) H Troponin I Quantitative 0.103 ng/mL (0.000-0.055) 0.154 ng/mL (0.000-0.055) Total Protein 7.1 g/dL (6.4-8.2) Albumin 3.2 g/dL (3.4-5.0) L Albumin/Globulin Ratio 0.8 (1.0-1.7) L Urine Collection Type Unknown Urine Color Yellow Urine Clarity Clear Urine pH 5.5 Urine Specific [place] 1.015 Urine Protein 100 mg/dL (NEG-TRACE) Urine Glucose (UA) Negative mg/dL (NEG) Urine Ketones (Stick) Negative mg/dL (NEG) Urine Blood Negative (NEG) Urine Nitrite Negative (NEG) Urine Bilirubin Negative (NEG) Urine Urobilinogen Dipstick 0.2 mg/dL (0.2 mg/dL) Urine Leukocyte Esterase Negative (NEG) Urine RBC 0 /HPF (0-2) Urine WBC 0 /HPF (0-4) Urine Bacteria 0 /HPF (0-FEW) Urine Hyaline Casts Few /HPF Urine Granular Casts Occasional /HPF Urine Mucus Slight /LPF Laboratory Tests 01/01/19 10:20 Laboratory Tests 01/01/19 10:20 ECHOCARDIOGRAM ECHOCARDIOGRAM <Conclusion> The left ventricle is normal size. Left ventricle systolic function is low normal. The Ejection Fraction is 50-55%. There is a flattened septum consistent with right ventricle pressure overload. There is moderate concentric left ventricular hypertrophy. The right ventricle is mildly dilated. There is no significant aortic valvular stenosis. Doppler and Color Flow revealed mild aortic regurgitation. Doppler and Color-flow revealed trace mitral regurgitation. Doppler and Color Flow revealed trace tricuspid regurgitation. The PA pressure was estimated at 34 mmHg. Doppler and Color Flow revealed mild pulmonic valvular regurgitation. The ascending aorta is moderately dilated at 3.8 cm. DATE: 10/30/18 1437 STRESS TEST STRESS TEST CORONARY ANGIOGRAPHY: LM is a large caliber vessel with normal angiographic appearance. LAD is a large caliber vessel with normal angiographic appearance. Ramus is a moderate caliber vessel with normal angiographic appearance. LCx is a moderate caliber non-dominant vessel with normal angiographic appearance. OM1 is a moderate caliber vessel with normal angiographic appearance. RCA is a large caliber dominant vessel with normal angiographic appearance. RPDA is a moderate caliber vessels with normal angiographic appearance. Conclusion 1. No significant obstructive coronary artery disease. 2. Elevated left sided filling pressures. Recommendations Aggressive Medical Therapy DATE: 05/10/17 1447 ASSESSMENT/PLAN ASSESSMENT/PLAN 1. Acute respiratory failure with recurrent right pleural effusion, multifactorial 2. Acute on chronic diastolic HF; secondary to missed HD and uncontrolled blood pressure 3. Hypertensive urgency; remains elevated 4. NSTEMI; highest 0.154. Most probably type II, demand ischemia in the setting of above and renal failure. Cath 04/29 without significant obstructive disease as noted above. Recent echo with preserved LV systolic function with an EF of 50- 55%. 5. ESRD; on HD 6. Hx of CVA 7. Ascites; s/p previous paracentesis 8. Noncompliance Recommendations Trend troponin ASA, statin Continue with home antiHTN therapy including Coreg, Norvasc, hydralazine. and clonidine. Allergy to ACEi. Monitor to assess need for therapy titration. PRN hydralazine IV Fluid off loading via HD as per nephrology Supportive care Consider outpatient ischemic evaluation Discussed/encourage compliance ANA HOOKER MD 01/02/19 1703: CARDIAC CONSULT ASSESSMENT/PLAN ASSESSMENT/PLAN Patient seen and examined. Agree with [facility]'s assessment and plan. Chest pain with atypical features. Slight troponin elevation probably demand ischemia. Recent 2-D echo showed normal LV systolic function and cardiac catheterization last year did not show any significant coronary disease. Continue fluid removal with hemodialysis for acute on chronic diastolic heart failure. Resume home medications and titrate for better blood pressure control. We will consider outpatient ischemic evaluation. The importance of compliance with medications and dialysis was reemphasized. Thank you for your consultation. ELKIN SMITH APRN Jan 02, 2019 10:29 ANA HOOKER MD Jan 02, 2019 17:03
--- NOTE | 2019-01-02 11:40 | PDOC ---
Renal-Progress Notes Subjective Notes Notes NO NEW COMPLAINTS History of Present Illness Hx of present illness SOB STILL Vitals Vitals Vital Signs Date Time Temp Pulse Resp B/P (MAP) Pulse Ox O2 Delivery O2 Flow Rate FiO2 01/02/19 11:15 100 Nasal Cannula 4.0 01/02/19 06:49 98.3 66 16 168/108 (128) 98.3 Weight Weight [ ] I.O. Intake and Output Intake and Output 01/02/19 07:00 Intake Total 340 ml Output Total 150 ml Balance 190 ml Intake Oral 340 ml Output Urine Total 150 ml # Voids 1 Labs Labs Laboratory Tests Test 01/01/19 11:57 01/02/19 09:00 Urine Collection Type Unknown Urine Color Yellow Urine Clarity Clear Urine pH 5.5 Urine Specific [place] 1.015 Urine Protein 100 mg/dL (NEG-TRACE) Urine Glucose (UA) Negative mg/dL (NEG) Urine Ketones (Stick) Negative mg/dL (NEG) Urine Blood Negative (NEG) Urine Nitrite Negative (NEG) Urine Bilirubin Negative (NEG) Urine Urobilinogen Dipstick 0.2 mg/dL (0.2 mg/dL) Urine Leukocyte Esterase Negative (NEG) Urine RBC 0 /HPF (0-2) Urine WBC 0 /HPF (0-4) Urine Bacteria 0 /HPF (0-FEW) Urine Hyaline Casts Few /HPF Urine Granular Casts Occasional /HPF Urine Mucus Slight /LPF Troponin I Quantitative 0.154 ng/mL (0.000-0.055) Review of Systems Constitutional: yes: alert, oriented Ears/Nose/Throat: Yes: no symptom reported Eyes: Yes: no symptom reported Pulmonary: Yes dyspnea Cardiovascular: Yes no symptom reported Gastrointestional: Yes: no symptom reported Genitourinary: Yes: no symptom reported Musculoskeletal: Yes: no symptom reported Skin: Yes no symptom reported Psychiatric/Neurological: Yes: no symptom reported Endocrine: Yes: no symptom reported Physical Exam General Appearance: no apparent distress Skin: warm Respiratory: decreased breath sounds Heart: S1S2, other (+ S4) Abdomen: soft Genitourinary: bladder flat Extremities: pulses present Neurology: alert, oriented, Ext weakness Assessment Assessment IMP DYSPNEA RIGHT PLEURAL EFFUSION ACUTE RESP FAILURE MALIGNANT HTN NON COMPLIANCE-SKIPPED LAST 2 TXS ESRD-MWF PLAN HD TODAY UF TO DW ENC COMPLIANCE RESUME HOME MEDS OSIRIS MEADOWS MD Jan 02, 2019 11:40
[2019-01-02] MEDS: hydrALAZINE 20 MG/ML VIAL. IVP PRN (14:17)
[2019-01-02 15:00] VITALS: BP 161/100
--- NOTE | 2019-01-02 16:17 | RAD ---
Ultrasound-guided right-sided thoracentesis 01/02/2019 Indication: RIGHT PLEURAL EFFUSION Procedure: Informed consent was obtained. A timeout procedure was performed. Sonographic evaluation of the right chest was performed demonstrating moderate pleural effusion. The right posterior chest was prepped and draped in sterile fashion. 1% lidocaine without epinephrine was administered for local anesthesia. Real-time ultrasonographic guidance was used in passing a 5 Setswana Yueh catheter into the right pleural space. 2.0 L of serosanguineous pleural fluid was removed. Samples of fluid were sent to the lab for further evaluation per ordering physician request. The catheter was removed and pressure held to achieve hemostasis. A sterile dressing was applied. No immediate complications were identified. The patient tolerated the procedure well. Impression: Right sided ultrasound-guided thoracentesis
[2019-01-02] MEDS ORDERED: HYDROcodone/APAP 5/325MG 1 TAB TABLET PO PRN (16:45)
[2019-01-02 19:00] VITALS: BP 100/63
[2019-01-02] MEDS: CYCLOBENZAPRINE 10 MG TABLET. PO PRN (19:33)
[2019-01-02] MEDS: ALPRAZolam 0.25 MG TABLET PO PRN (20:38)
[2019-01-02] MEDS: ATORVASTATIN CALCIUM 10 MG TABLET. PO SCH (20:39)
[2019-01-02] MEDS ORDERED: PATCH REMOVAL. MC SCH (21:00)
[2019-01-02 23:02] VITALS: BP 102/64
[2019-01-03 02:47] VITALS: BP 105/71
[2019-01-03] MEDS: CYCLOBENZAPRINE 10 MG TABLET. PO PRN (04:10)
[2019-01-03 07:00] VITALS: BP 121/82
[2019-01-03] MEDS: cloNIDine HCL 0.2 MG TABLET PO SCH (08:24)
[2019-01-03] MEDS: CARVEDILOL 12.5 MG TABLET. PO SCH (08:25)
[2019-01-03] MEDS: ASPIRIN ENTERIC COATED 325 MG TABLET.DR. PO SCH (08:25)
[2019-01-03] MEDS: CALCIUM CARB/VIT D3 500/200 TABLET. PO SCH ×2 (08:25→16:37)
[2019-01-03] MEDS: LIDOCAINE (700MG/PATCH) PATCH. TD SCH (08:26)
[2019-01-03] MEDS ORDERED: amLODIPine BESYLATE 10 MG TABLET PO SCH (09:00)
--- NOTE | 2019-01-03 09:02 | PN ---
DATE: 01/03/2019 SUBJECTIVE: The patient is sitting up in his bed, eating his breakfast comfortably, in no apparent distress. On questioning him, he denied any complaint, in particular had no further episodes of chest pain. His blood pressure is much better controlled. He has a thoracentesis and about 2 liters of fluid were drained. The patient expressed desire to be discharged home. OBJECTIVE: GENERAL: When I examined him, he looked well and was clearly in no apparent respiratory distress, slightly pale, but no jaundice, cyanosis, or thyromegaly. No jugular venous distension. No limb edema. VITAL SIGNS: His heart rate was 58, blood pressure 121/82, temperature was 98.2, respiratory rate was 15, and oxygen saturation was 100% on 2 liters of oxygen. HEAD, EYES, EARS, NOSE, AND THROAT: Showed normocephalic, atraumatic. NECK: Supple. HEART: Showed normal first and second heart sounds. No gallop or murmur. CHEST: Clear to auscultation. No crepitation or rhonchi. ABDOMEN: Scaphoid, soft, nontender. NEUROLOGIC: He is somewhat hard of hearing, but otherwise all cranial nerves are intact. He moves extremities without difficulty. He ambulates without assistance or assistive devices. His intake and output are incompletely recorded. LABORATORY DATA: Showed he has 3 sets of cardiac enzymes that felt to be demand ischemia. His hemoglobin was 12, hematocrit 37 with normal white cell count and platelets. His chemistry is variable as hemodialysis dependent. ASSESSMENT: 1. Acute hypoxic respiratory failure, resolved. 2. [id number] diastolic congestive heart failure, improved. 3. Large right-sided pleural effusion, for which he underwent thoracentesis and about 2 liters of fluid were removed. 4. End-stage renal disease, on hemodialysis Wednesday, Wednesday, and Wednesday. PLAN: My plan is to wait for the recommendation by the clinical applications manager and the fuse spooler and if they all agree, he would be discharged home to continue his hemodialysis as an outpatient on Wednesday, Wednesday, Wednesday. To follow with his primary care physician, Dr. Callaway. NORRIS BENNETT MD DR: AYLIN/savannah JOB#: [id number] / [id number]
[2019-01-03 11:01] VITALS: BP 91/57
--- NOTE | 2019-01-03 12:17 | PDOC ---
PULMONARY PROGRESS NOTES Subjective NO SOA FEELS BETTER S/P RIGHT TAP Vitals Vital Signs Date Time Temp Pulse Resp B/P (MAP) Pulse Ox O2 Delivery O2 Flow Rate FiO2 01/03/19 11:01 98.3 56 16 91/57 (68) 98 Nasal Cannula 2.0 98.3 General: Alert, No acute distress Lungs: Clear Cardiovascular: S1, S2 Abdomen: Soft, Other Neuro Exam: Alert Extremities: No Edema Skin: Warm Labs Laboratory Tests Test 01/02/19 09:00 Troponin I Quantitative 0.154 ng/mL (0.000-0.055) Medications Active Scripts Medications Dose Route/Sig Max Daily Dose Days Date Category Atorvastatin Calcium 10 Mg Tablet 10 Mg PO QHS 30 12/07/18 Rx Carvedilol (Carvedilol) 12.5 Mg Tablet 12.5 Mg PO BIDWMEALS 11/29/18 Reported Clonidine Hcl 0.2 Mg Tablet 0.2 Mg PO BID 11/29/18 Reported Alprazolam 0.25 Mg Tablet 1 Tab PO PRN DAILY PRN 11/29/18 Reported Cymbalta (Duloxetine Hcl) 30 Mg Capsule. 1 Cap PO DAILY 11/29/18 Reported Hydralazine Hcl 50 Mg Tablet 1 Tab PO BID 11/29/18 Reported Colace (Docusate Sodium) 100 Mg Capsule 100 Mg PO DAILY PRN 10/14/18 Rx Polyethylene Glycol 3350 17 Gm Powd.pack 17 Gm PO DAILY PRN 10/14/18 Rx Lidocaine PATCH (Lidocaine) 1 Each Adh..patch 1 Patch TD DAILY 30 10/10/18 Rx Proair Hfa (Albuterol Sulfate) 8.5 Gm Hfa.aer.ad 2.5 Mg NEB PRN Q4HRS PRN 30 10/10/18 Rx Cetirizine Hcl 10 Mg Tablet 10 Mg PO DAILY 30 10/10/18 Rx Oyster Shell 500 Mg + Vit D Tb (Calcium Carbonate/Vitamin D3) 1 Each Tablet 1 Tab PO BIDWMEALS 30 01/31/18 Rx Aspirin Ec (Aspirin) 325 Mg Tablet.dr 325 Mg PO DAILYWBKFT 30 10/25/17 Rx Impression . 1.RECURRENT RIGHT EFFUSION 2. S/P RIGHT TAP 3. ESRD 4. HYPERTENSIVE URGENCY 5 NON COMPLIANCE Plan . 1. BETTER POST THORACENTESIS 2. NEEDS HD SCHEDULED 3. OK WITH DC HOME 4. NEEDS BETTER CONTROL OF BP OP FLACO RAMESH MD Jan 03, 2019 12:17
--- NOTE | 2019-01-03 12:34 | CONS ---
DATE OF CONSULTATION: 01/02/2019 PULMONARY CONSULTATION ATTENDING PHYSICIAN: Dr. Michelle Sheffield. REASON FOR CONSULTATION: Recurrent pleural effusion. HISTORY OF PRESENT ILLNESS: The patient is very well known to us. He is a 53-year-old male who has history of end-stage renal disease, on hemodialysis. He has recurrent pleural effusions secondary to diastolic heart failure and end-stage renal disease, and poorly controlled blood pressure. He was brought into the hospital. He missed 2 dialysis sessions, Wednesday and Wednesday, as he was in [facility]. He was dyspneic and had shortness of breath. No chest pain, no cough, no fever, no chills, no headaches. His blood pressure was 220/155. His chest x-ray is consistent with moderate right-sided pleural effusion. He is currently undergoing dialysis. PAST MEDICAL HISTORY: Hypertension, history of recurrent pleural effusions with multiple thoracenteses, history of CVA, peripheral neuropathy, hyperparathyroidism, history of diastolic heart failure, history of hypertensive urgencies. PAST SURGICAL HISTORY: Hernia repair. FAMILY HISTORY: Heart disease, hypertension, and stroke. SOCIAL HISTORY: Nonsmoker. ALLERGIES: CODEINE, LISINOPRIL, AND MORPHINE. MEDICATIONS: Reviewed as listed in the MRAD. REVIEW OF SYSTEMS: Twelve-point system obtained. Pertinent positives discussed in my history of present illness, otherwise noncontributory. All systems that were negative were reviewed as well. PHYSICAL EXAMINATION: VITAL SIGNS: His blood pressure is now better, 160/108; afebrile; pulse ox 100% on 4 liters. NECK: Supple. LUNGS: Diminished breath sounds right base. CARDIOVASCULAR: Regular rate. ABDOMEN: Soft, nontender. EXTREMITIES: With no pitting edema. LABORATORY DATA: Reviewed. White cell count 5.6, hemoglobin 12.4, platelets are 201. BUN 93 and creatinine 7.2. Troponin 0.103. IMPRESSION: 1. Acute hypoxic respiratory failure, secondary to [id number] diastolic heart failure contributed by hypertensive urgency and increased right-sided moderate pleural effusion. 2. Prior history of transudative pleural effusions requiring multiple thoracenteses due to noncompliance with hemodialysis and also poorly controlled blood pressure, contributing to diastolic heart failure. 3. No significant tobacco history. RECOMMENDATIONS: 1. Continue hemodialysis with ultrafiltration. 2. We will ask IR to do a right-sided thoracentesis. 3. Optimization of blood pressure per Renal and Cardiology. 4. Wean oxygen post-thoracentesis. We will follow along with you. FLACO RAMESH MD DR: MARCELLA/savannah JOB#: [id number] / [id number]
--- NOTE | 2019-01-03 13:11 | PDOC ---
Renal-Progress Notes Subjective Notes Notes FEELING BETTER History of Present Illness Hx of present illness STABLE Vitals Vitals Vital Signs Date Time Temp Pulse Resp B/P (MAP) Pulse Ox O2 Delivery O2 Flow Rate FiO2 01/03/19 11:01 98.3 56 16 91/57 (68) 98 Nasal Cannula 2.0 98.3 Weight Weight [ ] I.O. Intake and Output Intake and Output 01/03/19 07:00 Intake Total 645 ml Output Total 325 ml Balance 320 ml Intake Oral 645 ml Output Urine Total 325 ml Review of Systems Constitutional: yes: alert, oriented Ears/Nose/Throat: Yes: no symptom reported Eyes: Yes: no symptom reported Pulmonary: Yes dyspnea Cardiovascular: Yes no symptom reported Gastrointestional: Yes: no symptom reported Genitourinary: Yes: no symptom reported Musculoskeletal: Yes: no symptom reported Skin: Yes no symptom reported Psychiatric/Neurological: Yes: no symptom reported Endocrine: Yes: no symptom reported Physical Exam General Appearance: no apparent distress Skin: warm Respiratory: decreased breath sounds Heart: S1S2, other (+ S4) Abdomen: soft Genitourinary: bladder flat Extremities: pulses present Neurology: alert, oriented, Ext weakness Assessment Assessment IMP DYSPNEA RIGHT PLEURAL EFFUSION S/P THORACENTESIS ACUTE RESP FAILURE MALIGNANT HTN NON COMPLIANCE-SKIPPED LAST 2 TXS AND MEDS ESRD-MWF PLAN HD TOMORROW OP HD TOMORROW IF DISCHARGED ENC COMPLIANCE OSIRIS MEADOWS MD Jan 03, 2019 13:11
[2019-01-03 15:00] VITALS: BP 105/74
--- NOTE | 2019-01-03 15:49 | PDOC ---
MARYLOU PETERSON CYLINDER STEAMER 01/03/19 1549: CARDIO Progress Notes Date and Time Date of Service 01/03/2019 Time of Evaluation 1510 Subjective Subjective: No Chest Pain, No shortness of breath, No Palpitations Vitals Vitals Vital Signs Date Time Temp Pulse Resp B/P (MAP) Pulse Ox O2 Delivery O2 Flow Rate FiO2 01/03/19 15:00 97.8 54 17 105/74 (84) 99 Nasal Cannula 2.0 97.8 Weight Weight [ ] Input and Output Intake and Output Intake and Output 01/03/19 07:00 Intake Total 645 ml Output Total 325 ml Balance 320 ml Intake Oral 645 ml Output Urine Total 325 ml Review of Systems Constitutional: yes: alert, oriented Ears/Nose/Throat: Yes: no symptom reported Eyes: Yes: no symptom reported Pulmonary: Yes dyspnea Cardiovascular: Yes no symptom reported Gastrointestional: Yes: no symptom reported Genitourinary: Yes: no symptom reported Musculoskeletal: Yes: no symptom reported Skin: Yes no symptom reported Psychiatric/Neurological: Yes: no symptom reported Endocrine: Yes: no symptom reported Physical Exam HEENT: Neck Supple W Full Motion Chest: Symmetric LUNGS: Clear to Auscultation Heart: S1S2, RRR (SB) Abdomen: Soft N/T Extremities: No Calf Tenderness Neurology: alert, oriented, follow commands Assessment Assessment 1. Acute respiratory failure with recurrent right pleural effusion, multifactorial 2. Acute on chronic diastolic CHF; secondary to missed HD and uncontrolled blood pressure. Now compensated 3. Hypertensive urgency; now marginally low. 4. NSTEMI; Type 2 demand mediated. EF of 50-55%. 5. ESRD; on HD 6. Hx of CVA 7. Ascites; s/p previous paracentesis 8. Noncompliance 9. Asymptomatic SB: lowest in the mid40s, no pauses with BB and clonidine use. Recommendations 1. DC norvasc and will decrease coreg with concurrent SB. 2. ASA, statin 3. Difficult to guage BP baseline as pt sometimes does not take his meds accordingly. Discussed compliance and HBPM and adjust BP meds as an outpt. 4. Fluid off loading via HD as per nephrology 5. Consider outpatient ischemic evaluation ANA HOOEKR MD 01/03/19 9629: CARDIO Progress Notes Assessment Assessment Patient seen and examined. Agree with PHOTOGRAPHIC RESTORER's assessment and plan. Agree with stopping Norvasc for borderline low blood pressure. Acute on chronic diastolic heart failure improved with hemodialysis Plan ischemic evaluation as an outpatient MARYLOU PETERSON APRN Jan 03, 2019 15:49 ANA HOOKER MD Jan 03, 2019 15:59
[2019-01-03 16:34] VITALS: BP 105/71
[2019-01-03] MEDS ORDERED: ONDANSETRON PF 4 MG/2 ML VIAL. ONE (16:50)
[2019-01-03] MEDS ORDERED: CARVEDILOL 6.25 MG TABLET. PO SCH (17:00)
[2019-01-03] MEDS ORDERED: CARV6.25 PO (17:50)
== END 2019-01-03 19:23 | disposition home or self-care (01) | DRG 280 ==
LOC: ER 09:15 → ED HOLD 10:34 → 1 WEST ICU 14:10
PROVIDERS: ADMIT Internal Medicine; ATTEND Internal Medicine
PROC: 0W993ZZ Drainage of Right Pleural Cavity, Percutaneous Approach (ICD-10-PCS; principal; 2019-01-01)
PROC: 5A1D70Z Performance of Urinary Filtration, Intermittent, Less than 6 Hours Per Day (ICD-10-PCS; 2019-01-01)
PROC: 5A1D70Z Performance of Urinary Filtration, Intermittent, Less than 6 Hours Per Day (ICD-10-PCS; 2019-01-02)
DX: I13.2 Hypertensive heart and chronic kidney disease with heart failure and with stage 5 chronic kidney disease, or end stage renal disease (principal); I21.A1 Myocardial infarction type 2; I50.33 Acute on chronic diastolic (congestive) heart failure; N18.6 End stage renal disease; J96.01 Acute respiratory failure with hypoxia; J90 Pleural effusion, not elsewhere classified; J98.11 Atelectasis; R18.8 Other ascites; D63.1 Anemia in chronic kidney disease; F41.9 Anxiety disorder, unspecified; E78.5 Hyperlipidemia, unspecified; M19.90 Unspecified osteoarthritis, unspecified site; I16.0 Hypertensive urgency; I25.2 Old myocardial infarction; J44.9 Chronic obstructive pulmonary disease, unspecified; Z82.3 Family history of stroke; Z82.49 Family history of ischemic heart disease and other diseases of the circulatory system; Z86.73 Personal history of transient ischemic attack (TIA), and cerebral infarction without residual deficits; Z91.15 Patient's noncompliance with renal dialysis; Z91.19 Patient's noncompliance with other medical treatment and regimen; Z99.2 Dependence on renal dialysis; Z88.8 Allergy status to other drugs, medicaments and biological substances
CPT/HCPCS: 32555; 36415; 71045; 80053; 81001; 84484; 85025; 93005; 94760; 96374; J0360; J1940; J2405; J3010; 99285-25; G0378

== ENCOUNTER 2019-01-12 16:43 | Inpatient (IN) | payer OTHER ==
[~2019-01-12] VITALS: Ht 172.7 cm; Wt 61.7 kg
[~2019-01-12 16:43] MED LIST changes: +CARV6.25 PO
[2019-01-12] MEDS ORDERED: fentaNYL PF VIAL 100 MCG/2 ML VIAL IV PRN (17:15)
[2019-01-12] MEDS ORDERED: IPRATRPIUM/ALBUTEROL 0.5/2.5MG 3 ML NEBU. NEB ONE (17:15)
[2019-01-12] MEDS ORDERED: LABETALOL 20 MG/4 ML DISP.SYRIN. IVP ONE (17:15)
[2019-01-12 17:30] LABS: BASO # 0.1 x10^3/uL (0.0-0.2); BASO % 3 % (0-3); EOS # 0.2 x10^3/uL (0.0-0.7); EOS % 4 % (0-3); HEMATOCRIT 42.2 % (39.0-53.0); HEMOGLOBIN 13.9 g/dL (13.0-17.5); LYMPH # 0.8 x10^3/uL (1.0-4.8); LYMPH % 14 % (24-48); MEAN CORPUSCULAR HEMOGLOBIN 29 pg (25-35); MEAN CORPUSCULAR HGB CONC 33 g/dL (31-37); MEAN CORPUSCULAR VOLUME 88 fL (79-100); MONO # 0.7 x10^3/uL (0.0-1.1); MONO % 12 % (0-9); NEUT # 3.7 x10^3/uL (1.8-7.7); NEUT % 67 % (31-73); PLATELET COUNT 207 x10^3/uL (140-400); WHITE BLOOD COUNT 5.6 x10^3/uL (4.0-11.0)
[2019-01-12] MEDS ORDERED: cloNIDine HCL 0.1 MG TABLET PO ONE (17:30)
[2019-01-12 17:32] LABS: CALCIUM 9.2 mg/dL (8.5-10.1); CREATININE 4.5 mg/dL (0.7-1.3); GFR 16.6; POTASSIUM 4.2 mmol/L (3.5-5.1)
--- NOTE | 2019-01-12 17:32 | RAD ---
PORTABLE CHEST 1V Clinical History: Dyspnea Technique: AP view of the chest was obtained at 01/12/2019 5:04 PM. Comparison: January 01, 2019. Findings: The heart is markedly enlarged. The pulmonary vessels appear normal. There is density in the mid and lower right lung and along the pleural margin laterally on the right. Impression: 1. Marked cardiomegaly. 2. Large right effusion and adjacent infiltrate. No change. Electronically signed by: Brando Escobar III, MD (01/12/2019 5:29 PM) [facility]
[2019-01-12 17:38] LABS: ALBUMIN 3.5 g/dL (3.4-5.0); ALBUMIN/GLOBULIN RATIO 0.9 (1.0-1.7); TOTAL PROTEIN 7.6 g/dL (6.4-8.2)
[2019-01-12 17:47] LABS: CREATINE KINASE 124 U/L (39-308)
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
[2019-01-12] MEDS ORDERED: fentaNYL PF VIAL 100 MCG/2 ML VIAL IVP ONE (18:00)
[2019-01-12] MEDS ORDERED: cefTRIAXone IV Push 1 GM VIAL. IVP ONE (18:00)
[2019-01-12] MEDS ORDERED: ONDANSETRON PF 4 MG/2 ML VIAL. IV ONE (18:15)
[2019-01-12] MEDS ORDERED: ONDANSETRON PF 4 MG/2 ML VIAL. IV PRN (19:30)
[2019-01-12 19:37] VITALS: BP 142/121
[2019-01-12] MEDS: IPRATRPIUM/ALBUTEROL 0.5/2.5MG 3 ML NEBU. NEB SCH (20:50)
[2019-01-12] MEDS: fentaNYL PF VIAL 100 MCG/2 ML VIAL IV PRN (21:35)
[2019-01-12 22:41] VITALS: BP 105/78
[2019-01-13] VITALS (13 sets, daily range): BP systolic 128–190; BP diastolic 83–124
[2019-01-13 06:02] LABS: BASO # 0.1 x10^3/uL (0.0-0.2); BASO % 2 % (0-3); EOS # 0.2 x10^3/uL (0.0-0.7); EOS % 3 % (0-3); HEMATOCRIT 38.5 % (39.0-53.0); HEMOGLOBIN 12.7 g/dL (13.0-17.5); LYMPH # 0.9 x10^3/uL (1.0-4.8); LYMPH % 18 % (24-48); MEAN CORPUSCULAR HEMOGLOBIN 29 pg (25-35); MEAN CORPUSCULAR HGB CONC 33 g/dL (31-37); MEAN CORPUSCULAR VOLUME 88 fL (79-100); MONO # 0.7 x10^3/uL (0.0-1.1); MONO % 14 % (0-9); NEUT % 63 % (31-73); PLATELET COUNT 192 x10^3/uL (140-400); RED BLOOD COUNT 4.38 x10^6/uL (4.30-5.70); RED CELL DISTRIBUTION WIDTH 15.7 % (11.5-14.5); WHITE BLOOD COUNT 4.8 x10^3/uL (4.0-11.0)
[2019-01-13] MEDS: fentaNYL PF VIAL 100 MCG/2 ML VIAL IV PRN (06:03)
[2019-01-13 06:06] LABS: CALCIUM 8.4 mg/dL (8.5-10.1); GFR 14.7; POTASSIUM 5.5 mmol/L (3.5-5.1)
--- NOTE | 2019-01-13 06:14 | EKG ---
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
[2019-01-13] MEDS: IPRATRPIUM/ALBUTEROL 0.5/2.5MG 3 ML NEBU. NEB SCH ×4 (08:13→19:35)
--- NOTE | 2019-01-13 08:39 | EKG ---
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 Electronically Signed On 01-20-2019 16:45:42 CDT by Lukas Finley
[2019-01-13 08:41] LABS: PROTHROMBIN TIME PATIENT 15.2 SEC (11.7-14.0)
--- NOTE | 2019-01-13 09:04 | NUR ---
IP: Pt has had a hx of + mrsa screens since 01/2018 with most recent on 10/30/18. Pt to be in contact precautions until there are 2 negative screens 7 days apart. Nozin/CHG decolonization to be initiated.
[2019-01-13] MEDS ORDERED: ALBUTEROL SULFATE 2.5 MG/3 ML NEBU. NEB PRN (09:15)
[2019-01-13] MEDS ORDERED: POLYETHYLENE GLYCOL 3350 17 GM PACKET. PO PRN (09:15)
[2019-01-13] MEDS: LIDOCAINE (700MG/PATCH) PATCH. TD SCH (10:00)
--- NOTE | 2019-01-13 10:09 | PDOC ---
Provider Note Provider Note Pt seen.H&P dictated.#[id number]. ROSALINO SERRANO MD Jan 13, 2019 10:09
[2019-01-13] MEDS: CALCIUM CARB/VIT D3 500/200 TABLET. PO SCH ×2 (10:47→18:58)
[2019-01-13] MEDS: ASPIRIN ENTERIC COATED 325 MG TABLET.DR. PO SCH (10:49)
[2019-01-13] MEDS: CARVEDILOL 6.25 MG TABLET. PO SCH ×2 (10:49→18:57)
[2019-01-13] MEDS: DULoxetine HCL 30 MG CAPSULE.DR PO SCH (10:49)
[2019-01-13] MEDS: cloNIDine HCL 0.2 MG TABLET PO SCH ×3 (10:49→20:38)
[2019-01-13] MEDS: CETIRIZINE HCL 10 MG TABLET. PO SCH (10:49)
--- NOTE | 2019-01-13 10:54 | PDOC2 ---
MARYLOU PETERSON [employer] 01/13/19 1054: CARDIAC CONSULT DATE OF CONSULT Date of Consult DATE: 01/13/19 TIME: 10:31 REASON FOR CONSULT Reason for Consult: Chest pain REFERRING PHYSICIAN Referring Physician: Scotty SOURCE Source: Chart review, Patient HISTORY OF PRESENT ILLNESS HISTORY OF PRESENT ILLNESS This is a pleasant 53 yo male admitted for complains of chest pain and shortness of breath. He has been having SOA despite his HD. His chest pain is sharp mainly to right chest and worse with deep breathing. Also with throbbing BASSETT and upon admission her was noted with 260/165. No nausea or vomiting and no focal neuro symptoms. He just had thoracentesis with reported 2 L taken off to his right pleura. His symptoms are better and his BP is better. Verbalized that he has been taking his medications. PAST MEDICAL HISTORY Past Medical History Cardiovascular: HTN, CHF (diastolic) Pulmonary: Asthma CENTRAL NERVOUS SYSTEM: CVA, Peripheral neuropathy GI: No pertinent hx Heme/Onc: Anemia NOS Hepatobiliary: No pertinent hx Psych: Anxiety Musculoskeletal: Osteoarthritis Rheumatologic: No pertinent hx Infectious disease: No pertinent hx ENT: No pertinent hx Renal/: Chronic renal failure (ESRD on HD, previously on PD Endocrine: No pertinent hx Dermatology: No pertinent hx PAST SURGICAL HISTORY Past Surgical History Other (lumbar fusion, L dialysis fistula placement, corneal transplant, paracentesis) FAMILY HISTORY Family History Heart Disease, Hypertension, Stroke SOCIAL HISTORY Social History Smoke: No ALCOHOL: none Drugs: None Lives: with Family CURRENT MEDICATIONS CURRENT MEDICATIONS Current Medications Medications (Trade) Dose Ordered Sig/Sascha Route PRN Reason Start Time Stop Time Status Last Admin Dose Admin Fentanyl Citrate (Fentanyl 2ml Vial) 50 mcg PRN Q15MIN PRN IV PAIN GREATER THAN 3/10 01/12/19 17:15 01/13/19 09:20 DC 01/13/19 07:19 Albuterol/ Ipratropium (Duoneb) 3 ml 1X ONCE NEB 01/12/19 17:15 01/12/19 17:16 DC 01/12/19 17:24 Labetalol HCl (Normodyne Iv Push) 10 mg 1X ONCE IVP 01/12/19 17:15 01/12/19 17:16 DC 01/12/19 17:40 Clonidine HCl (Catapres) 0.2 mg 1X ONCE PO 01/12/19 17:30 01/12/19 17:33 DC 01/12/19 17:39 Levofloxacin/ Dextrose 100 ml @ 100 mls/hr 1X ONCE IV 01/12/19 18:00 01/12/19 18:59 DC 01/12/19 18:14 Ceftriaxone Sodium (Rocephin) 1 gm 1X ONCE IVP 01/12/19 18:00 01/12/19 18:01 DC 01/12/19 18:13 Fentanyl Citrate (Fentanyl 2ml Vial) 75 mcg 1X ONCE IVP 01/12/19 18:00 01/12/19 18:03 DC 01/12/19 18:07 Lorazepam (Ativan Inj) 1 mg 1X ONCE IVP 01/12/19 18:15 01/12/19 18:16 DC 01/12/19 18:15 Ondansetron HCl (Zofran) 4 mg 1X ONCE IV 01/12/19 18:15 01/12/19 18:16 DC 01/12/19 18:15 Fentanyl Citrate (Fentanyl 2ml Vial) 50 mcg PRN Q1HR PRN IV PAIN 01/12/19 19:30 01/13/19 19:29 01/13/19 06:03 Albuterol/ Ipratropium (Duoneb) 3 ml RTQID NEB 01/12/19 20:00 01/13/19 19:59 01/13/19 08:13 ALLERGIES ALLERGIES: Coded Allergies: lisinopril (Verified Allergy, Severe, Swelling, 06/03/18) codeine (Verified Allergy, Intermediate, itching, 12/05/18) TAKES LORTAB AT HOME IN THE PAST I S O L A T I O N *CONTACT* (Verified Allergy, Unknown, 06/03/18) +MRSA nares 01/15/18 morphine (Verified Allergy, Unknown, 12/06/18) ROS Review of System 14 point ROS evaluated with pertinent positives noted per HPI PHYSICAL EXAM General: Alert, Oriented X3, Cooperative, No acute distress HEENT: Atraumatic, Mucous membr. moist/pink Lungs: Other (basilar crackles) Heart: Regular rate (SR), Normal S1, Normal S2, Other (s4; 3/6 diastolic murmur to ERB) Abdomen: Soft Extremities: No cyanosis, Other (trace LE edema) Skin: No breakdown, No significant lesion Neuro: Normal speech, Sensation intact Psych/Mental Status: Mental status NL, Mood NL MUSCULOSKELETAL: Osteoarthritic changes both hands VITALS/I&O VITALS/I&O: Vital Signs Date Time Temp Pulse Resp B/P (MAP) Pulse Ox O2 Delivery O2 Flow Rate FiO2 01/13/19 09:10 70 22 149/96 (113) 100 Nasal Cannula 2.0 01/13/19 07:00 97.5 97.5 I & O 01/12/19 01/12/19 01/13/19 15:00 23:00 07:00 Intake Total 0 ml 0 ml Output Total 0 ml 0 ml Balance 0 ml 0 ml LABS Lab: Laboratory Tests Test 01/12/19 17:03 01/12/19 20:40 01/12/19 22:25 01/13/19 01:43 White Blood Count 5.6 x10^3/uL (4.0-11.0) Red Blood Count 4.80 x10^6/uL (4.30-5.70) Hemoglobin 13.9 g/dL (13.0-17.5) Hematocrit 42.2 % (39.0-53.0) Mean Corpuscular Volume 88 fL (79-100) Mean Corpuscular Hemoglobin 29 pg (25-35) Mean Corpuscular Hemoglobin Concent 33 g/dL (31-37) Red Cell Distribution Width 16.0 % (11.5-14.5) H Platelet Count 207 x10^3/uL (140-400) Neutrophils (%) (Auto) 67 % (31-73) Lymphocytes (%) (Auto) 14 % (24-48) L Monocytes (%) (Auto) 12 % (0-9) H Eosinophils (%) (Auto) 4 % (0-3) H Basophils (%) (Auto) 3 % (0-3) Neutrophils # (Auto) 3.7 x10^3/uL (1.8-7.7) Lymphocytes # (Auto) 0.8 x10^3/uL (1.0-4.8) L Monocytes # (Auto) 0.7 x10^3/uL (0.0-1.1) Eosinophils # (Auto) 0.2 x10^3/uL (0.0-0.7) Basophils # (Auto) 0.1 x10^3/uL (0.0-0.2) Sodium Level 134 mmol/L (136-145) L Potassium Level 4.2 mmol/L (3.5-5.1) Chloride Level 104 mmol/L (98-107) Carbon Dioxide Level 19 mmol/L (21-32) L Anion Gap 11 (6-14) Blood Urea Nitrogen 42 mg/dL (8-26) H Creatinine 4.5 mg/dL (0.7-1.3) H Estimated GFR (Cockcroft-Gault) 16.6 BUN/Creatinine Ratio 9 (6-20) Glucose Level 138 mg/dL (70-99) H Calcium Level 9.2 mg/dL (8.5-10.1) Magnesium Level 2.0 mg/dL (1.8-2.4) Total Bilirubin 1.0 mg/dL (0.2-1.0) Aspartate Amino Transferase (AST) 19 U/L (15-37) Alanine Aminotransferase (ALT) 16 U/L (16-63) Alkaline Phosphatase 140 U/L (46-116) H Creatine Kinase 124 U/L (39-308) Creatine Kinase MB (Mass) 12.0 ng/mL (0.0-3.6) H Creatine Kinase MB Relative Index 9.7 % (0-4) H Troponin I Quantitative 0.095 ng/mL (0.000-0.055) 0.103 ng/mL (0.000-0.055) 0.119 ng/mL (0.000-0.055) WQ-Wou-C-Type Natriuretic Peptide > 88911 pg/mL (0-124) H Total Protein 7.6 g/dL (6.4-8.2) Albumin 3.5 g/dL (3.4-5.0) Albumin/Globulin Ratio 0.9 (1.0-1.7) L Procalcitonin 0.18 ng/mL (0.00-0.10) H Thyroid Stimulating Hormone (TSH) 1.229 uIU/mL (0.358-3.74) Lactic Acid Level 1.1 mmol/L (0.4-2.0) Test 01/13/19 03:53 01/13/19 03:55 Prothrombin Time 15.2 SEC (11.7-14.0) H Prothrombin Time INR 1.2 (0.8-1.1) H Sodium Level 138 mmol/L (136-145) Potassium Level 5.5 mmol/L (3.5-5.1) #H Chloride Level 106 mmol/L (98-107) Carbon Dioxide Level 18 mmol/L (21-32) L Anion Gap 14 (6-14) Blood Urea Nitrogen 47 mg/dL (8-26) H Creatinine 5.0 mg/dL (0.7-1.3) H Estimated GFR (Cockcroft-Gault) 14.7 Glucose Level 89 mg/dL (70-99) Calcium Level 8.4 mg/dL (8.5-10.1) L White Blood Count 4.8 x10^3/uL (4.0-11.0) Red Blood Count 4.38 x10^6/uL (4.30-5.70) Hemoglobin 12.7 g/dL (13.0-17.5) L Hematocrit 38.5 % (39.0-53.0) L Mean Corpuscular Volume 88 fL (79-100) Mean Corpuscular Hemoglobin 29 pg (25-35) Mean Corpuscular Hemoglobin Concent 33 g/dL (31-37) Red Cell Distribution Width 15.7 % (11.5-14.5) H Platelet Count 192 x10^3/uL (140-400) Neutrophils (%) (Auto) 63 % (31-73) Lymphocytes (%) (Auto) 18 % (24-48) L Monocytes (%) (Auto) 14 % (0-9) H Eosinophils (%) (Auto) 3 % (0-3) Basophils (%) (Auto) 2 % (0-3) Neutrophils # (Auto) 3.0 x10^3/uL (1.8-7.7) Lymphocytes # (Auto) 0.9 x10^3/uL (1.0-4.8) L Monocytes # (Auto) 0.7 x10^3/uL (0.0-1.1) Eosinophils # (Auto) 0.2 x10^3/uL (0.0-0.7) Basophils # (Auto) 0.1 x10^3/uL (0.0-0.2) Laboratory Tests 01/12/19 17:03 01/13/19 03:55 Laboratory Tests 01/12/19 17:03 01/13/19 03:53 ECHOCARDIOGRAM ECHOCARDIOGRAM <Conclusion> The left ventricle is normal size. Left ventricle systolic function is low normal. The Ejection Fraction is 50-55%. There is a flattened septum consistent with right ventricle pressure overload. There is moderate concentric left ventricular hypertrophy. The right ventricle is mildly dilated. There is no significant aortic valvular stenosis. Doppler and Color Flow revealed mild aortic regurgitation. Doppler and Color-flow revealed trace mitral regurgitation. Doppler and Color Flow revealed trace tricuspid regurgitation. The PA pressure was estimated at 34 mmHg. Doppler and Color Flow revealed mild pulmonic valvular regurgitation. The ascending aorta is moderately dilated at 3.8 cm. DATE: 10/30/18 143 HEART CATH HEART CATH CORONARY ANGIOGRAPHY: LM is a large caliber vessel with normal angiographic appearance. LAD is a large caliber vessel with normal angiographic appearance. Ramus is a moderate caliber vessel with normal angiographic appearance. LCx is a moderate caliber non-dominant vessel with normal angiographic appearance. OM1 is a moderate caliber vessel with normal angiographic appearance. RCA is a large caliber dominant vessel with normal angiographic appearance. RPDA is a moderate caliber vessels with normal angiographic appearance. Conclusion 1. No significant obstructive coronary artery disease. 2. Elevated left sided filling pressures. Recommendations Aggressive Medical Therapy DATE: 05/10/17 1447 ASSESSMENT/PLAN ASSESSMENT/PLAN 1. Acute respiratory failure with recurrent large right pleural effusion. S/P thoracentesis 2L per report 2. Acute on chronic diastolic CHF: likely secondary to uncontrolled HTN 3. Malignant HTN: improving 4. Atypical CP: mainly due to high BP and pleural effusion 5. Mild troponin elevation: this is chronic, 0.1 peaked within his baseline. No acute EKG changes, arrhythmias. Demand mediated 6. ESRD 7. Hx of Noncompliance 8. Hx of asymptomatic SB: due to past combination of high dosing clonidine and coreg. Recommendations 1. Continue current BP regimen and will add imdur. Monitor for bradycardia 2. ASA, statin 3. Pt does report taking his meds but in the past he was noted to be skipping. Discussed strict compliance and bid HBPM. 4. Fluid off loading via HD as per nephrology 5. Will consider for outpt stress test if pt would comply to his appt. ANA HOOKER MD 01/13/19 1241: CARDIAC CONSULT ASSESSMENT/PLAN ASSESSMENT/PLAN Patient seen and examined. Agree with BAT LATHE OPERATOR's assessment and plan. Acute respiratory failure secondary to large pleural effusion and acute on chronic diastolic heart failure Continue fluid removal with hemodialysis per nephrology team Blood pressure better controlled since admission. Importance of strict compliance with medications reemphasized Chest pain very atypical and noncardiac. Slight troponin elevation probably demand ischemia. Plan outpatient ischemic evaluation Thank you for your consultation MARYLOU PETERSON APRN Jan 13, 2019 10:54 ANA HOOKER MD Jan 13, 2019 12:41
[2019-01-13] MEDS: ISOSORBIDE MONONITRATE ER 30 MG TAB.ER.24H PO SCH (10:55)
--- NOTE | 2019-01-13 11:11 | CONS ---
DATE OF CONSULTATION: 01/13/2019 PULMONARY CONSULTATION ATTENDING PHYSICIAN: Bernarda Rowan MD REASON FOR CONSULTATION: Recurrent pleural effusion. HISTORY OF PRESENT ILLNESS: The patient is a 53-year-old male who has a history of end-stage renal disease; history of hypertension, which is under poor control; history of noncompliance; and recurrent right-sided pleural effusion, which has required multiple thoracenteses. He came into the hospital again with shortness of breath for several days. The patient states he was dialyzed yesterday. He was noted to have a chest x-ray, which revealed moderate-sized right pleural effusion. The patient's blood pressure was again noted to be high at 269/168. He has been noncompliant with his medications before. Denies any cough, chest pains. No fever, no chills. He feels better since he had the thoracentesis done this morning. PAST MEDICAL HISTORY: History of end-stage renal disease, history of dialysis, history of recurrent right-sided pleural effusion related to hypertensive urgencies and diastolic heart failure. PAST SURGICAL HISTORY: Hernia repair, stab x 2, peritoneal dialysis catheter, and left fistula. ALLERGIES: CODEINE, LISINOPRIL, AND MORPHINE. MEDICATIONS: Reviewed as listed in the MRAD. REVIEW OF SYSTEMS: Twelve-point system obtained. Pertinent positives discussed in my history of present illness, otherwise noncontributory. All systems that were negative were reviewed as well. SOCIAL HISTORY: Nonsmoker. FAMILY HISTORY: Noncontributory to lungs. PHYSICAL EXAMINATION: VITAL SIGNS: His blood pressure initially was 269/168, now it is better controlled. Pulse ox is 100% on 2 liters. Afebrile. HEENT: Sclerae nonicteric. NECK: Supple. LUNGS: With slightly diminished breath sounds right base. CARDIOVASCULAR: With a regular rate. ABDOMEN: Soft. EXTREMITIES: With no pitting edema. LABORATORY DATA: Reviewed. White cell count 4.8, hemoglobin 12.7, and platelets are 192. BUN 47, creatinine 5.0. IMPRESSION: 1. Recurrent acute hypoxic respiratory failure, secondary to recurrent right-sided pleural effusion. 2. Recurrent right-sided pleural effusion related to poor control of blood pressure with multiple admissions for hypertensive emergencies and [id number] diastolic heart failure. In addition, noncompliance is also an issue. Previously, he was on peritoneal dialysis and was switched to hemodialysis to have better control of his effusion, but it has not improved. He is not a candidate for PleurX catheter due to the likelihood of infection if left for a long period of time. 3. End-stage renal disease, on hemodialysis. 4. Hypertension, under poor control. RECOMMENDATIONS: 1. Status post thoracentesis. 2. He needs to have better control of his blood pressure. Discussed with Renal. 3. Follow chest x-ray as needed. 4. Wean off oxygen. 5. Not much to add from a Pulmonary standpoint. FLACO RAMESH MD DR: MARCELLA/savannah JOB#: [id number] / [id number]
--- NOTE | 2019-01-13 12:21 | NUR ---
SS following for discharge planning. SS reviewed pt chart. Pt is from home and is currently requiring oxygen. Pt is on dialysis at [address] [address], ; fax [phone]. SS contacted [facility] and was notified that pt has been missing dialysis and did not attend treatments on 01/06/2019 and 01/12/2019. Pt has [facility] been [facility]. SS will continue to follow for discharge planning.
--- NOTE | 2019-01-13 13:26 | PDOC2 ---
CONSULT Date of Consult Date of Consult DATE: 01/13/19 TIME: 13:16 Source Source: Chart review, Patient History of Present Illness Reason for Visit: The patient is a 53-year-old AA male with end-stage renal disease; history of hypertension, which is under poor control; history of noncompliance; and recurrent right-sided pleural effusion, which has required multiple thoracenteses. Hospitalized again with shortness of breath for several days. He was noted to have a chest x-ray, which revealed moderate-sized right pleural effusion. The patient's blood pressure was 269/168. He has been noncompliant with his medications and HD . Denies any cough, chest pains. No fever, no chills. Had thoracentesis done this morning and is feeling better He states his HD days are MWF (and Not TTS ) Past Medical History Cardiovascular: HTN Pulmonary: Asthma CENTRAL NERVOUS SYSTEM: CVA, Periperal neuropathy GI: No pertinent hx Heme/Onc: Anemia NOS Hepatobiliary: No pertinent hx Psych: Anxiety Infectious disease: No pertinent hx Renal/: Chronic renal failure Endocrine: No pertinent hx, Hyperparathyroidism Past Surgical History Past Surgical History: Hernia Repair, Other Family History Family History: Heart Disease, Hypertension, Stroke Social History ALCOHOL: none Drugs: None Lives: with Family Current Problem List Problem List Problems Medical Problems: (1) ESRD (end stage renal disease) on dialysis Status: Chronic (2) Nausea & vomiting Status: Acute (3) Right upper lobe pneumonia Status: Acute Current Medications Current Medications Current Medications Fentanyl Citrate (Fentanyl 2ml Vial) 50 mcg PRN Q15MIN PRN IV PAIN GREATER THAN 3/10 Last administered on 01/13/19at 07:19; Start 01/12/19 at 17:15; Stop 01/13/19 at 09:20; Status DC Albuterol/ Ipratropium (Duoneb) 3 ml 1X ONCE NEB Last administered on 01/12/19at 17:24; Start 01/12/19 at 17:15; Stop 01/12/19 at 17:16; Status DC Labetalol HCl (Normodyne Iv Push) 10 mg 1X ONCE IVP Last administered on 01/12/19at 17:40; Start 01/12/19 at 17:15; Stop 01/12/19 at 17:16; Status DC Clonidine HCl (Catapres) 0.2 mg 1X ONCE PO Last administered on 01/12/19 17:39; Start 01/12/19 at 17:30; Stop 01/12/19 at 17:33; Status DC Levofloxacin/ Dextrose 100 ml @ 100 mls/hr 1X ONCE IV Last administered on 01/12/19at 18:14; Start 01/12/19 at 18:00; Stop 01/12/19 at 18:59; Status DC Ceftriaxone Sodium (Rocephin) 1 gm 1X ONCE IVP Last administered on 01/12/19 18:13; Start 01/12/19 at 18:00; Stop 01/12/19 at 18:01; Status DC Fentanyl Citrate (Fentanyl 2ml Vial) 75 mcg 1X ONCE IVP Last administered on 01/12/19 18:07; Start 01/12/19 at 18:00; Stop 01/12/19 at 18:03; Status DC Lorazepam (Ativan Inj) 1 mg 1X ONCE IVP Last administered on 01/12/19 18:15; Start 01/12/19 at 18:15; Stop 01/12/19 at 18:16; Status DC Ondansetron HCl (Zofran) 4 mg 1X ONCE IV Last administered on 01/12/19at 18:15; Start 01/12/19 at 18:15; Stop 01/12/19 at 18:16; Status DC Ondansetron HCl (Zofran) 4 mg PRN Q8HRS PRN IV NAUSEA/VOMITING; Start 01/12/19 at 19:30; Stop 01/13/19 at 19:29 Fentanyl Citrate (Fentanyl 2ml Vial) 50 mcg PRN Q1HR PRN IV PAIN Last administered on 01/13/19at 06:03; Start 01/12/19 at 19:30; Stop 01/13/19 at 19:29 Albuterol/ Ipratropium (Duoneb) 3 ml RTQID NEB Last administered on 01/13/19at 11:33; Start 01/12/19 at 20:00; Stop 01/13/19 at 19:59 Albuterol Sulfate (Ventolin Neb Soln) 2.5 mg PRN Q4HRS PRN NEB SHORTNESS OF BREATH; Start 01/13/19 at 09:15 Alprazolam (Xanax) 0.25 mg PRN DAILY PRN PO ANXIETY / AGITATION; Start 01/13/19 at 09:15 Aspirin (Ecotrin) 325 mg DAILYWBKFT PO Last administered on 01/13/19 10:49; Start 01/13/19 at 10:00 Atorvastatin Calcium (Lipitor) 10 mg QHS PO ; Start 01/13/19 at 21:00 Calcium/Vitamin D (Oscal D 500mg/ 200uts) 1 tab BIDWMEALS PO Last administered on 01/13/19at 10:47; Start 01/13/19 at 10:00 Carvedilol (Coreg) 6.25 mg BIDWMEALS PO Last administered on 01/13/19 10:49; Start 01/13/19 at 10:00 Cetirizine HCl (ZyrTEC) 10 mg DAILY PO Last administered on 01/13/19at 10:49; Start 01/13/19 at 10:00 Clonidine HCl (Catapres) 0.2 mg BID PO Last administered on 01/13/19at 10:49; Start 01/13/19 at 10:00 Docusate Sodium (Colace) 100 mg DAILY PRN PO HARD STOOLS; Start 01/13/19 at 09:15 Duloxetine HCl (Cymbalta) 30 mg DAILY PO Last administered on 01/13/19 10:49; Start 01/13/19 at 10:00 Hydralazine HCl (Apresoline) 50 mg BID PO Last administered on 01/13/19at 10:48; Start 01/13/19 at 10:00 Lidocaine (Lidoderm) 1 patch DAILY TD ; Start 01/13/19 at 10:00 Polyethylene Glycol (miraLAX PACKET) 17 gm DAILY PRN PO CONSTIPATION; Start 01/13/19 at 09:15 Miscellaneous (Lidoderm Patch Removal) 1 ea QHS MC ; Start 01/13/19 at 21:00 Isosorbide Mononitrate (Imdur) 30 mg DAILY PO Last administered on 01/13/19at 10:55; Start 01/13/19 at 11:00 Active Scripts Active Coreg (Carvedilol) 6.25 Mg Tablet 6.25 Mg PO BIDWMEALS 30 Days Atorvastatin Calcium 10 Mg Tablet 10 Mg PO QHS 30 Days Colace (Docusate Sodium) 100 Mg Capsule 100 Mg PO DAILY PRN Polyethylene Glycol 3350 17 Gm Powd.pack 17 Gm PO DAILY PRN Lidocaine PATCH (Lidocaine) 1 Each Adh..patch 1 Patch TD DAILY 30 Days Proair Hfa (Albuterol Sulfate) 8.5 Gm Hfa.aer.ad 2.5 Mg NEB PRN Q4HRS PRN 30 Days Cetirizine Hcl 10 Mg Tablet 10 Mg PO DAILY 30 Days Oyster Shell 500 Mg + Vit D Tb (Calcium Carbonate/Vitamin D3) 1 Each Tablet 1 Tab PO BIDWMEALS 30 Days Aspirin Ec (Aspirin) 325 Mg Tablet. 325 Mg PO DAILYWBKFT 30 Days Reported Clonidine Hcl 0.2 Mg Tablet 0.2 Mg PO BID Alprazolam 0.25 Mg Tablet 1 Tab PO PRN DAILY PRN Cymbalta (Duloxetine Hcl) 30 Mg Capsule. 1 Cap PO DAILY Hydralazine Hcl 50 Mg Tablet 1 Tab PO BID Allergies Allergies: Coded Allergies: lisinopril (Verified Allergy, Severe, Swelling, 06/03/18) codeine (Verified Allergy, Intermediate, itching, 12/05/18) TAKES LORTAB AT HOME IN THE PAST I S O L A T I O N *CONTACT* (Verified Allergy, Unknown, 06/03/18) +MRSA nares 01/15/18 morphine (Verified Allergy, Unknown, 12/06/18) ROS Review of System Per HPI Physical Exam Physical Exam General: No acute distress, eating Breakfast HEENT: Mucous membr. moist/pink Lungs: Other (basilar crackles) Heart: Regular rate (SR), Normal S1, Normal S2,3/6 diastolic murmur Abdomen: Soft Extremities: trace LE edema) Skin: No rash Neuro: grossly normal Psych/Mental Status: Mental status NL, Mood NL Vital Signs Vital Signs Date Time Temp Pulse Resp B/P (MAP) Pulse Ox O2 Delivery O2 Flow Rate FiO2 01/13/19 11:34 100 Nasal Cannula 2.0 01/13/19 11:00 97.6 73 22 161/115 (130) 97.6 Assessment & Plan ESRD- MWF Transitioned from PD to HD 2/2 Non compliance and admissions for Vol Overload Dialysis as ordered, UF 3-4 as tolerated Dw [facility] Hyperkalemia- Mild HD today HTN - BP very high at presentation to the ER Continue home antihypertensives, Acute respiratory failure with recurrent large right pleural effusion. S/P thoracentesis this am 2 L removed Acute on chronic diastolic CHF: likely secondary to uncontrolled HTN Chronic Noncompliance Labs Labs Laboratory Tests Test 01/12/19 17:03 01/12/19 20:40 01/12/19 22:25 01/13/19 01:43 White Blood Count 5.6 x10^3/uL (4.0-11.0) Red Blood Count 4.80 x10^6/uL (4.30-5.70) Hemoglobin 13.9 g/dL (13.0-17.5) Hematocrit 42.2 % (39.0-53.0) Mean Corpuscular Volume 88 fL (79-100) Mean Corpuscular Hemoglobin 29 pg (25-35) Mean Corpuscular Hemoglobin Concent 33 g/dL (31-37) Red Cell Distribution Width 16.0 % (11.5-14.5) Platelet Count 207 x10^3/uL (140-400) Neutrophils (%) (Auto) 67 % (31-73) Lymphocytes (%) (Auto) 14 % (24-48) Monocytes (%) (Auto) 12 % (0-9) Eosinophils (%) (Auto) 4 % (0-3) Basophils (%) (Auto) 3 % (0-3) Neutrophils # (Auto) 3.7 x10^3/uL (1.8-7.7) Lymphocytes # (Auto) 0.8 x10^3/uL (1.0-4.8) Monocytes # (Auto) 0.7 x10^3/uL (0.0-1.1) Eosinophils # (Auto) 0.2 x10^3/uL (0.0-0.7) Basophils # (Auto) 0.1 x10^3/uL (0.0-0.2) Sodium Level 134 mmol/L (136-145) Potassium Level 4.2 mmol/L (3.5-5.1) Chloride Level 104 mmol/L (98-107) Carbon Dioxide Level 19 mmol/L (21-32) Anion Gap 11 (6-14) Blood Urea Nitrogen 42 mg/dL (8-26) Creatinine 4.5 mg/dL (0.7-1.3) Estimated GFR (Cockcroft-Gault) 16.6 BUN/Creatinine Ratio 9 (6-20) Glucose Level 138 mg/dL (70-99) Calcium Level 9.2 mg/dL (8.5-10.1) Magnesium Level 2.0 mg/dL (1.8-2.4) Total Bilirubin 1.0 mg/dL (0.2-1.0) Aspartate Amino Transf (AST/SGOT) 19 U/L (15-37) Alanine Aminotransferase (ALT/SGPT) 16 U/L (16-63) Alkaline Phosphatase 140 U/L (46-116) Creatine Kinase 124 U/L (39-308) Creatine Kinase MB (Mass) 12.0 ng/mL (0.0-3.6) Creatine Kinase MB Relative Index 9.7 % (0-4) Troponin I Quantitative 0.095 ng/mL (0.000-0.055) 0.103 ng/mL (0.000-0.055) 0.119 ng/mL (0.000-0.055) XL-Asu-B-Type Natriuretic Peptide > 15692 pg/mL (0-124) Total Protein 7.6 g/dL (6.4-8.2) Albumin 3.5 g/dL (3.4-5.0) Albumin/Globulin Ratio 0.9 (1.0-1.7) Procalcitonin 0.18 ng/mL (0.00-0.10) Thyroid Stimulating Hormone (TSH) 1.229 uIU/mL (0.358-3.74) Lactic Acid Level 1.1 mmol/L (0.4-2.0) Test 01/13/19 03:53 01/13/19 03:55 Prothrombin Time 15.2 SEC (11.7-14.0) Prothromb Time International Ratio 1.2 (0.8-1.1) Sodium Level 138 mmol/L (136-145) Potassium Level 5.5 mmol/L (3.5-5.1) Chloride Level 106 mmol/L (98-107) Carbon Dioxide Level 18 mmol/L (21-32) Anion Gap 14 (6-14) Blood Urea Nitrogen 47 mg/dL (8-26) Creatinine 5.0 mg/dL (0.7-1.3) Estimated GFR (Cockcroft-Gault) 14.7 Glucose Level 89 mg/dL (70-99) Calcium Level 8.4 mg/dL (8.5-10.1) White Blood Count 4.8 x10^3/uL (4.0-11.0) Red Blood Count 4.38 x10^6/uL (4.30-5.70) Hemoglobin 12.7 g/dL (13.0-17.5) Hematocrit 38.5 % (39.0-53.0) Mean Corpuscular Volume 88 fL (79-100) Mean Corpuscular Hemoglobin 29 pg (25-35) Mean Corpuscular Hemoglobin Concent 33 g/dL (31-37) Red Cell Distribution Width 15.7 % (11.5-14.5) Platelet Count 192 x10^3/uL (140-400) Neutrophils (%) (Auto) 63 % (31-73) Lymphocytes (%) (Auto) 18 % (24-48) Monocytes (%) (Auto) 14 % (0-9) Eosinophils (%) (Auto) 3 % (0-3) Basophils (%) (Auto) 2 % (0-3) Neutrophils # (Auto) 3.0 x10^3/uL (1.8-7.7) Lymphocytes # (Auto) 0.9 x10^3/uL (1.0-4.8) Monocytes # (Auto) 0.7 x10^3/uL (0.0-1.1) Eosinophils # (Auto) 0.2 x10^3/uL (0.0-0.7) Basophils # (Auto) 0.1 x10^3/uL (0.0-0.2) Laboratory Tests Test 01/12/19 17:03 01/12/19 20:40 01/12/19 22:25 01/13/19 01:43 White Blood Count 5.6 x10^3/uL (4.0-11.0) Red Blood Count 4.80 x10^6/uL (4.30-5.70) Hemoglobin 13.9 g/dL (13.0-17.5) Hematocrit 42.2 % (39.0-53.0) Mean Corpuscular Volume 88 fL (79-100) Mean Corpuscular Hemoglobin 29 pg (25-35) Mean Corpuscular Hemoglobin Concent 33 g/dL (31-37) Red Cell Distribution Width 16.0 % (11.5-14.5) Platelet Count 207 x10^3/uL (140-400) Neutrophils (%) (Auto) 67 % (31-73) Lymphocytes (%) (Auto) 14 % (24-48) Monocytes (%) (Auto) 12 % (0-9) Eosinophils (%) (Auto) 4 % (0-3) Basophils (%) (Auto) 3 % (0-3) Neutrophils # (Auto) 3.7 x10^3/uL (1.8-7.7) Lymphocytes # (Auto) 0.8 x10^3/uL (1.0-4.8) Monocytes # (Auto) 0.7 x10^3/uL (0.0-1.1) Eosinophils # (Auto) 0.2 x10^3/uL (0.0-0.7) Basophils # (Auto) 0.1 x10^3/uL (0.0-0.2) Sodium Level 134 mmol/L (136-145) Potassium Level 4.2 mmol/L (3.5-5.1) Chloride Level 104 mmol/L (98-107) Carbon Dioxide Level 19 mmol/L (21-32) Anion Gap 11 (6-14) Blood Urea Nitrogen 42 mg/dL (8-26) Creatinine 4.5 mg/dL (0.7-1.3) Estimated GFR (Cockcroft-Gault) 16.6 BUN/Creatinine Ratio 9 (6-20) Glucose Level 138 mg/dL (70-99) Calcium Level 9.2 mg/dL (8.5-10.1) Magnesium Level 2.0 mg/dL (1.8-2.4) Total Bilirubin 1.0 mg/dL (0.2-1.0) Aspartate Amino Transf (AST/SGOT) 19 U/L (15-37) Alanine Aminotransferase (ALT/SGPT) 16 U/L (16-63) Alkaline Phosphatase 140 U/L (46-116) Creatine Kinase 124 U/L (39-308) Creatine Kinase MB (Mass) 12.0 ng/mL (0.0-3.6) Creatine Kinase MB Relative Index 9.7 % (0-4) Troponin I Quantitative 0.095 ng/mL (0.000-0.055) 0.103 ng/mL (0.000-0.055) 0.119 ng/mL (0.000-0.055) TT-Kco-F-Type Natriuretic Peptide > 82015 pg/mL (0-124) Total Protein 7.6 g/dL (6.4-8.2) Albumin 3.5 g/dL (3.4-5.0) Albumin/Globulin Ratio 0.9 (1.0-1.7) Procalcitonin 0.18 ng/mL (0.00-0.10) Thyroid Stimulating Hormone (TSH) 1.229 uIU/mL (0.358-3.74) Lactic Acid Level 1.1 mmol/L (0.4-2.0) Test 01/13/19 03:53 01/13/19 03:55 Prothrombin Time 15.2 SEC (11.7-14.0) Prothromb Time International Ratio 1.2 (0.8-1.1) Sodium Level 138 mmol/L (136-145) Potassium Level 5.5 mmol/L (3.5-5.1) Chloride Level 106 mmol/L (98-107) Carbon Dioxide Level 18 mmol/L (21-32) Anion Gap 14 (6-14) Blood Urea Nitrogen 47 mg/dL (8-26) Creatinine 5.0 mg/dL (0.7-1.3) Estimated GFR (Cockcroft-Gault) 14.7 Glucose Level 89 mg/dL (70-99) Calcium Level 8.4 mg/dL (8.5-10.1) White Blood Count 4.8 x10^3/uL (4.0-11.0) Red Blood Count 4.38 x10^6/uL (4.30-5.70) Hemoglobin 12.7 g/dL (13.0-17.5) Hematocrit 38.5 % (39.0-53.0) Mean Corpuscular Volume 88 fL (79-100) Mean Corpuscular Hemoglobin 29 pg (25-35) Mean Corpuscular Hemoglobin Concent 33 g/dL (31-37) Red Cell Distribution Width 15.7 % (11.5-14.5) Platelet Count 192 x10^3/uL (140-400) Neutrophils (%) (Auto) 63 % (31-73) Lymphocytes (%) (Auto) 18 % (24-48) Monocytes (%) (Auto) 14 % (0-9) Eosinophils (%) (Auto) 3 % (0-3) Basophils (%) (Auto) 2 % (0-3) Neutrophils # (Auto) 3.0 x10^3/uL (1.8-7.7) Lymphocytes # (Auto) 0.9 x10^3/uL (1.0-4.8) Monocytes # (Auto) 0.7 x10^3/uL (0.0-1.1) Eosinophils # (Auto) 0.2 x10^3/uL (0.0-0.7) Basophils # (Auto) 0.1 x10^3/uL (0.0-0.2) Review All relevant outside records, renal labs, imaging studies, telemetry/EKG's were reviewed. MAGDIEL VOGEL MD Jan 13, 2019 13:26
[2019-01-13] MEDS ORDERED: IV NORMAL SALINE 1000ML BAG 1,000 ML IV PRN ×2 (13:30)
[2019-01-13] MEDS ORDERED: DIALYSIS PATIENT. MC PRN (13:30)
[2019-01-13] MEDS ORDERED: ACETAMINOPHEN 500 MG TABLET PO PRN (13:30)
[2019-01-13] MEDS ORDERED: diphenhydrAMINE 50 MG/ML VIAL IV PRN ×2 (13:30)
[2019-01-13] MEDS ORDERED: LIDOCAINE 1% PF 2 ML VIAL. ID PRN (13:45)
--- NOTE | 2019-01-13 14:04 | RAD ---
EXAM: CHEST 1 VIEW History: Status post thoracentesis. COMPARISON: 01/12/2019 TECHNIQUE: Single portable radiograph of the chest Findings/ impression: Moderate cardiomegaly. Interval decrease in size of the right pleural effusion with residual [id number] right pleural effusion. No evidence of pneumothorax. Electronically signed by: Faizan Stallworth MD (01/13/2019 2:01 PM) [id number]
--- NOTE | 2019-01-13 14:55 | RAD ---
Ultrasound Guided Thoracentesis, right side Indication: 53-year-old with recurrent right pleural effusion Sedation: Local anesthesia only Sterility: The procedure was performed in its entirety using appropriate elements of sterile technique. Technique and Findings: Following informed consent, the patient was prepped and draped in the usual sterile fashion. Ultrasound interrogation of the area of interest was performed revealing the presence of a pleural fluid collection. 1% Lidocaine was used to achieve local anesthesia over the area of interest. A small dermatotomy was made and a 5F Udg-d-owjrwhim catheter was advanced under ultrasound guidance into the pleural space and 2000 cc's of thin yellow fluid was removed. The catheter was then removed and hemostasis was achieved with manual compression. Impression: US thoracentesis as described.
--- NOTE | 2019-01-13 15:09 | HP ---
ADMIT DATE: MEDICAL HISTORY AND PHYSICAL LOCATION: 246. REASON FOR ADMISSION TO THE HOSPITAL: Shortness of breath, recurrent pleural effusion and end-stage renal disease. HISTORY OF PRESENT ILLNESS: The patient is a 53-year-old male, the patient is known to us from multiple admissions to the hospital. The patient is on end-stage renal disease, on hemodialysis. Had a cardiac catheterization last year, shows normal coronaries. He was having shortness of breath, came to the Emergency Room. X-ray shows right pleural effusion. He goes to dialysis on Wednesday, Wednesday and Wednesday. The patient was seen by Interventional Radiology, had 2 liters removed from thoracocentesis from right chest and going for dialysis this morning. PAST MEDICAL HISTORY: Hypertension, end-stage renal disease and diastolic heart failure. PAST SURGICAL HISTORY: Lumbar fusion, AV fistula, corneal transplant, has a peritoneal dialysis catheter and recurrent thoracocentesis. FAMILY HISTORY: Positive for hypertension, stroke and heart disease. SOCIAL HISTORY: No history of smoking, alcohol or drug abuse. ALLERGIES: CODEINE, LISINOPRIL AND MORPHINE. MEDICATIONS AT HOME: Albuterol inhaler, Xanax 0.25 for anxiety, aspirin 325 daily, atorvastatin 10 mg daily, calcium with vitamin D daily, Coreg 6.25 twice a day, cetirizine 10 mg daily, clonidine 0.2 twice a day, Colace 100 mg daily, Cymbalta 30 mg daily, hydralazine 50 mg twice a day, lidocaine patch daily and MiraLax 17 grams daily. REVIEW OF SYMPTOMS: Complains of shortness of breath. Denies any chest pain at this point. Gastrointestinal, no nausea or vomiting. Rest of the 14-system was reviewed and negative. PHYSICAL EXAMINATION: GENERAL: The patient was seen after thoracocentesis, comfortable. VITAL SIGNS: Temperature 97, pulse 68, respirations 20, blood pressure 130/101, 97% on 2 liters. HEENT: Head is atraumatic. Pupils are equal. Oral cavity: No congestion. NECK: Supple. CHEST: Diminished breath sounds on the right base. CARDIOVASCULAR: S1, S2. ABDOMEN: Soft, has a peritoneal dialysis catheter present, he is not using that. EXTERNAL GENITALIA: No Zamorano. RECTAL: Deferred. EXTREMITIES: No calf tenderness, no edema. Pulses 1+. NEUROLOGIC: Moving all extremities. No focal deficits noted. LABORATORY DATA: Shows white count 5.6, hemoglobin 14 and platelets 207. INR is 1.2. Electrolytes, sodium 134, potassium 4.2, chloride 104, bicarbonate 19, BUN 42, creatinine 4.5, glucose 138 and magnesium 2.0. LFTs were normal. TSH was normal. Troponin 0.1, it was a peak. Procalcitonin 0.1. FINAL IMPRESSION: 1. Recurrent pleural effusion. 2. End-stage renal disease, on hemodialysis. 3. Hypertension. PLAN: At this time, the patient was dialyzed today. He also had thoracocentesis, 2 liters was removed. Continue medications, PT, OT and see how he improves. ROSALINO SERRANO MD DR: RENATO/savannah JOB#: [id number] / [id number] NORRIS Ferreira
[2019-01-13] MEDS: PATCH REMOVAL. MC SCH (20:35)
[2019-01-13] MEDS: ATORVASTATIN CALCIUM 10 MG TABLET. PO SCH (20:36)
--- NOTE | 2019-01-13 20:39 | NUR ---
Pt refused hs dose of clonidine at this time. Patient states "it makes my head spin". I did education with him about medication compliance, the action of this medication, and normal blood pressure parameters. I also discussed possible adverse effects on the body of poorly controlled blood pressure. Pt verbalized understanding, still refused med.
[2019-01-13] MEDS: HYDROcodone/APAP 5/325MG 1 TAB TABLET PO PRN (23:18)
[2019-01-14] VITALS (7 sets, daily range): BP systolic 108–160; BP diastolic 65–99
[2019-01-14] MEDS: ALPRAZolam 0.25 MG TABLET PO PRN ×2 (00:26→23:39)
[2019-01-14 04:45] LABS: BASO # 0.1 x10^3/uL (0.0-0.2); BASO % 2 % (0-3); EOS # 0.2 x10^3/uL (0.0-0.7); EOS % 5 % (0-3); HEMATOCRIT 35.3 % (39.0-53.0); HEMOGLOBIN 11.8 g/dL (13.0-17.5); LYMPH # 0.8 x10^3/uL (1.0-4.8); LYMPH % 15 % (24-48); MEAN CORPUSCULAR HEMOGLOBIN 29 pg (25-35); MEAN CORPUSCULAR HGB CONC 33 g/dL (31-37); MEAN CORPUSCULAR VOLUME 87 fL (79-100); MONO # 0.6 x10^3/uL (0.0-1.1); MONO % 13 % (0-9); NEUT # 3.3 x10^3/uL (1.8-7.7); NEUT % 66 % (31-73); PLATELET COUNT 176 x10^3/uL (140-400); RED BLOOD COUNT 4.06 x10^6/uL (4.30-5.70); RED CELL DISTRIBUTION WIDTH 15.1 % (11.5-14.5)
[2019-01-14 04:59] LABS: CALCIUM 8.2 mg/dL (8.5-10.1); CREATININE 3.8 mg/dL (0.7-1.3); GFR 20.2; POTASSIUM 3.6 mmol/L (3.5-5.1)
[2019-01-14] MEDS: IPRATRPIUM/ALBUTEROL 0.5/2.5MG 3 ML NEBU. NEB SCH ×5 (08:16→20:28)
[2019-01-14] MEDS: CARVEDILOL 6.25 MG TABLET. PO SCH ×2 (08:32→17:09)
[2019-01-14] MEDS: ISOSORBIDE MONONITRATE ER 30 MG TAB.ER.24H PO SCH (08:33)
[2019-01-14] MEDS: CALCIUM CARB/VIT D3 500/200 TABLET. PO SCH ×2 (08:33→17:07)
[2019-01-14] MEDS: cloNIDine HCL 0.2 MG TABLET PO SCH ×2 (08:33→21:10)
[2019-01-14] MEDS: DULoxetine HCL 30 MG CAPSULE.DR PO SCH (08:33)
--- NOTE | 2019-01-14 08:33 | PDOC ---
PULMONARY PROGRESS NOTES Subjective no tyler Vitals Vital Signs Date Time Temp Pulse Resp B/P (MAP) Pulse Ox O2 Delivery O2 Flow Rate FiO2 01/14/19 08:17 90 Room Air 01/14/19 08:13 98.5 67 160/99 (119) 2.0 98.5 01/14/19 03:20 20 General: Alert, No acute distress Lungs: Other (decrease right base) Cardiovascular: S1, S2 Abdomen: Soft, Other Extremities: No Edema Labs Laboratory Tests Test 01/12/19 17:03 01/12/19 20:40 01/12/19 22:25 01/13/19 01:43 White Blood Count 5.6 x10^3/uL (4.0-11.0) Red Blood Count 4.80 x10^6/uL (4.30-5.70) Hemoglobin 13.9 g/dL (13.0-17.5) Hematocrit 42.2 % (39.0-53.0) Mean Corpuscular Volume 88 fL (79-100) Mean Corpuscular Hemoglobin 29 pg (25-35) Mean Corpuscular Hemoglobin Concent 33 g/dL (31-37) Red Cell Distribution Width 16.0 % (11.5-14.5) Platelet Count 207 x10^3/uL (140-400) Neutrophils (%) (Auto) 67 % (31-73) Lymphocytes (%) (Auto) 14 % (24-48) Monocytes (%) (Auto) 12 % (0-9) Eosinophils (%) (Auto) 4 % (0-3) Basophils (%) (Auto) 3 % (0-3) Neutrophils # (Auto) 3.7 x10^3/uL (1.8-7.7) Lymphocytes # (Auto) 0.8 x10^3/uL (1.0-4.8) Monocytes # (Auto) 0.7 x10^3/uL (0.0-1.1) Eosinophils # (Auto) 0.2 x10^3/uL (0.0-0.7) Basophils # (Auto) 0.1 x10^3/uL (0.0-0.2) Sodium Level 134 mmol/L (136-145) Potassium Level 4.2 mmol/L (3.5-5.1) Chloride Level 104 mmol/L (98-107) Carbon Dioxide Level 19 mmol/L (21-32) Anion Gap 11 (6-14) Blood Urea Nitrogen 42 mg/dL (8-26) Creatinine 4.5 mg/dL (0.7-1.3) Estimated GFR (Cockcroft-Gault) 16.6 BUN/Creatinine Ratio 9 (6-20) Glucose Level 138 mg/dL (70-99) Calcium Level 9.2 mg/dL (8.5-10.1) Magnesium Level 2.0 mg/dL (1.8-2.4) Total Bilirubin 1.0 mg/dL (0.2-1.0) Aspartate Amino Transf (AST/SGOT) 19 U/L (15-37) Alanine Aminotransferase (ALT/SGPT) 16 U/L (16-63) Alkaline Phosphatase 140 U/L (46-116) Creatine Kinase 124 U/L (39-308) Creatine Kinase MB (Mass) 12.0 ng/mL (0.0-3.6) Creatine Kinase MB Relative Index 9.7 % (0-4) Troponin I Quantitative 0.095 ng/mL (0.000-0.055) 0.103 ng/mL (0.000-0.055) 0.119 ng/mL (0.000-0.055) XQ-Fvi-U-Type Natriuretic Peptide > 73099 pg/mL (0-124) Total Protein 7.6 g/dL (6.4-8.2) Albumin 3.5 g/dL (3.4-5.0) Albumin/Globulin Ratio 0.9 (1.0-1.7) Procalcitonin 0.18 ng/mL (0.00-0.10) Thyroid Stimulating Hormone (TSH) 1.229 uIU/mL (0.358-3.74) Lactic Acid Level 1.1 mmol/L (0.4-2.0) Test 01/13/19 03:53 01/13/19 03:55 01/14/19 03:45 Prothrombin Time 15.2 SEC (11.7-14.0) Prothromb Time International Ratio 1.2 (0.8-1.1) Sodium Level 138 mmol/L (136-145) 139 mmol/L (136-145) Potassium Level 5.5 mmol/L (3.5-5.1) 3.6 mmol/L (3.5-5.1) Chloride Level 106 mmol/L (98-107) 101 mmol/L (98-107) Carbon Dioxide Level 18 mmol/L (21-32) 27 mmol/L (21-32) Anion Gap 14 (6-14) 11 (6-14) Blood Urea Nitrogen 47 mg/dL (8-26) 30 mg/dL (8-26) Creatinine 5.0 mg/dL (0.7-1.3) 3.8 mg/dL (0.7-1.3) Estimated GFR (Cockcroft-Gault) 14.7 20.2 Glucose Level 89 mg/dL (70-99) 86 mg/dL (70-99) Calcium Level 8.4 mg/dL (8.5-10.1) 8.2 mg/dL (8.5-10.1) White Blood Count 4.8 x10^3/uL (4.0-11.0) 5.0 x10^3/uL (4.0-11.0) Red Blood Count 4.38 x10^6/uL (4.30-5.70) 4.06 x10^6/uL (4.30-5.70) Hemoglobin 12.7 g/dL (13.0-17.5) 11.8 g/dL (13.0-17.5) Hematocrit 38.5 % (39.0-53.0) 35.3 % (39.0-53.0) Mean Corpuscular Volume 88 fL (79-100) 87 fL (79-100) Mean Corpuscular Hemoglobin 29 pg (25-35) 29 pg (25-35) Mean Corpuscular Hemoglobin Concent 33 g/dL (31-37) 33 g/dL (31-37) Red Cell Distribution Width 15.7 % (11.5-14.5) 15.1 % (11.5-14.5) Platelet Count 192 x10^3/uL (140-400) 176 x10^3/uL (140-400) Neutrophils (%) (Auto) 63 % (31-73) 66 % (31-73) Lymphocytes (%) (Auto) 18 % (24-48) 15 % (24-48) Monocytes (%) (Auto) 14 % (0-9) 13 % (0-9) Eosinophils (%) (Auto) 3 % (0-3) 5 % (0-3) Basophils (%) (Auto) 2 % (0-3) 2 % (0-3) Neutrophils # (Auto) 3.0 x10^3/uL (1.8-7.7) 3.3 x10^3/uL (1.8-7.7) Lymphocytes # (Auto) 0.9 x10^3/uL (1.0-4.8) 0.8 x10^3/uL (1.0-4.8) Monocytes # (Auto) 0.7 x10^3/uL (0.0-1.1) 0.6 x10^3/uL (0.0-1.1) Eosinophils # (Auto) 0.2 x10^3/uL (0.0-0.7) 0.2 x10^3/uL (0.0-0.7) Basophils # (Auto) 0.1 x10^3/uL (0.0-0.2) 0.1 x10^3/uL (0.0-0.2) Magnesium Level 1.9 mg/dL (1.8-2.4) Laboratory Tests Test 01/14/19 03:45 White Blood Count 5.0 x10^3/uL (4.0-11.0) Red Blood Count 4.06 x10^6/uL (4.30-5.70) Hemoglobin 11.8 g/dL (13.0-17.5) Hematocrit 35.3 % (39.0-53.0) Mean Corpuscular Volume 87 fL (79-100) Mean Corpuscular Hemoglobin 29 pg (25-35) Mean Corpuscular Hemoglobin Concent 33 g/dL (31-37) Red Cell Distribution Width 15.1 % (11.5-14.5) Platelet Count 176 x10^3/uL (140-400) Neutrophils (%) (Auto) 66 % (31-73) Lymphocytes (%) (Auto) 15 % (24-48) Monocytes (%) (Auto) 13 % (0-9) Eosinophils (%) (Auto) 5 % (0-3) Basophils (%) (Auto) 2 % (0-3) Neutrophils # (Auto) 3.3 x10^3/uL (1.8-7.7) Lymphocytes # (Auto) 0.8 x10^3/uL (1.0-4.8) Monocytes # (Auto) 0.6 x10^3/uL (0.0-1.1) Eosinophils # (Auto) 0.2 x10^3/uL (0.0-0.7) Basophils # (Auto) 0.1 x10^3/uL (0.0-0.2) Sodium Level 139 mmol/L (136-145) Potassium Level 3.6 mmol/L (3.5-5.1) Chloride Level 101 mmol/L (98-107) Carbon Dioxide Level 27 mmol/L (21-32) Anion Gap 11 (6-14) Blood Urea Nitrogen 30 mg/dL (8-26) Creatinine 3.8 mg/dL (0.7-1.3) Estimated GFR (Cockcroft-Gault) 20.2 Glucose Level 86 mg/dL (70-99) Calcium Level 8.2 mg/dL (8.5-10.1) Magnesium Level 1.9 mg/dL (1.8-2.4) Medications Active Scripts Medications Dose Route/Sig Max Daily Dose Days Date Category Coreg (Carvedilol) 6.25 Mg Tablet 6.25 Mg PO BIDWMEALS 30 01/03/19 Rx Atorvastatin Calcium 10 Mg Tablet 10 Mg PO QHS 30 12/07/18 Rx Clonidine Hcl 0.2 Mg Tablet 0.2 Mg PO BID 11/29/18 Reported Alprazolam 0.25 Mg Tablet 1 Tab PO PRN DAILY PRN 11/29/18 Reported Cymbalta (Duloxetine Hcl) 30 Mg Capsule. 1 Cap PO DAILY 11/29/18 Reported Hydralazine Hcl 50 Mg Tablet 1 Tab PO BID 11/29/18 Reported Colace (Docusate Sodium) 100 Mg Capsule 100 Mg PO DAILY PRN 10/14/18 Rx Polyethylene Glycol 3350 17 Gm Powd.pack 17 Gm PO DAILY PRN 10/14/18 Rx Lidocaine PATCH (Lidocaine) 1 Each Adh..patch 1 Patch TD DAILY 30 10/10/18 Rx Proair Hfa (Albuterol Sulfate) 8.5 Gm Hfa.aer.ad 2.5 Mg NEB PRN Q4HRS PRN 30 10/10/18 Rx Cetirizine Hcl 10 Mg Tablet 10 Mg PO DAILY 30 10/10/18 Rx Oyster Shell 500 Mg + Vit D Tb (Calcium Carbonate/Vitamin D3) 1 Each Tablet 1 Tab PO BIDWMEALS 01/31/18 Rx Aspirin Ec (Aspirin) 325 Mg Tablet. 325 Mg PO DAILYWBKFT 10/25/17 Rx Impression . 1. Recurrent acute hypoxic respiratory failure, secondary to recurrent right-sided pleural effusion. 2. Recurrent right-sided pleural effusion related to poor control of blood pressure with multiple admissions for hypertensive emergencies and [id number] diastolic heart failure. In addition, noncompliance is also an issue. Previously, he was on peritoneal dialysis and was switched to hemodialysis to have better control of his effusion, but it has not improved. He is not a candidate for PleurX catheter due to the likelihood of infection if left for a long period of time. 3. End-stage renal disease, on hemodialysis. 4. Hypertension, under poor control. Plan . 1. Status post thoracentesis. cxr better 2. He needs to have better control of his blood pressure. Discussed with Renal. 3. Follow chest x-ray as needed. 4. Wean off oxygen. 5. Not much to add from a Pulmonary standpoint. 6. Not the best candidate for PleurX catheter FLACO RAMESH MD Jan 14, 2019 08:33
[2019-01-14] MEDS: DOCUSATE SODIUM 100 MG CAPSULE. PO PRN (08:34)
[2019-01-14] MEDS: CETIRIZINE HCL 10 MG TABLET. PO SCH (08:34)
[2019-01-14] MEDS: ASPIRIN ENTERIC COATED 325 MG TABLET.DR. PO SCH (08:34)
[2019-01-14] MEDS: HYDROcodone/APAP 5/325MG 1 TAB TABLET PO PRN (08:35)
[2019-01-14] MEDS: LIDOCAINE (700MG/PATCH) PATCH. TD SCH (09:00)
--- NOTE | 2019-01-14 10:31 | PDOC ---
Renal-Progress Notes Subjective Notes Notes LESS SOB History of Present Illness Hx of present illness STABLE Vitals Vitals Vital Signs Date Time Temp Pulse Resp B/P (MAP) Pulse Ox O2 Delivery O2 Flow Rate FiO2 01/14/19 09:35 94 Nasal Cannula 1.0 01/14/19 08:36 67 160/99 01/14/19 08:13 98.5 98.5 01/14/19 03:20 20 Weight Weight [ ] I.O. Intake and Output Intake and Output 01/14/19 07:00 Intake Total 250 ml Output Total 2000 ml Balance -1750 ml Intake Oral 250 ml Chest Tube Drainage Total 2000 ml Labs Labs Laboratory Tests Test 01/14/19 03:45 White Blood Count 5.0 x10^3/uL (4.0-11.0) Red Blood Count 4.06 x10^6/uL (4.30-5.70) Hemoglobin 11.8 g/dL (13.0-17.5) Hematocrit 35.3 % (39.0-53.0) Mean Corpuscular Volume 87 fL (79-100) Mean Corpuscular Hemoglobin 29 pg (25-35) Mean Corpuscular Hemoglobin Concent 33 g/dL (31-37) Red Cell Distribution Width 15.1 % (11.5-14.5) Platelet Count 176 x10^3/uL (140-400) Neutrophils (%) (Auto) 66 % (31-73) Lymphocytes (%) (Auto) 15 % (24-48) Monocytes (%) (Auto) 13 % (0-9) Eosinophils (%) (Auto) 5 % (0-3) Basophils (%) (Auto) 2 % (0-3) Neutrophils # (Auto) 3.3 x10^3/uL (1.8-7.7) Lymphocytes # (Auto) 0.8 x10^3/uL (1.0-4.8) Monocytes # (Auto) 0.6 x10^3/uL (0.0-1.1) Eosinophils # (Auto) 0.2 x10^3/uL (0.0-0.7) Basophils # (Auto) 0.1 x10^3/uL (0.0-0.2) Sodium Level 139 mmol/L (136-145) Potassium Level 3.6 mmol/L (3.5-5.1) Chloride Level 101 mmol/L (98-107) Carbon Dioxide Level 27 mmol/L (21-32) Anion Gap 11 (6-14) Blood Urea Nitrogen 30 mg/dL (8-26) Creatinine 3.8 mg/dL (0.7-1.3) Estimated GFR (Cockcroft-Gault) 20.2 Glucose Level 86 mg/dL (70-99) Calcium Level 8.2 mg/dL (8.5-10.1) Magnesium Level 1.9 mg/dL (1.8-2.4) Micro Micro Microbiology 01/12/19 Blood Culture - Preliminary, Resulted NO GROWTH AFTER 1 DAY Review of Systems Constitutional: yes: alert, oriented Ears/Nose/Throat: Yes: no symptom reported Eyes: Yes: no symptom reported Pulmonary: Yes dyspnea Cardiovascular: Yes no symptom reported Gastrointestional: Yes: constipation Genitourinary: Yes: no symptom reported Musculoskeletal: Yes: muscle stiffness Skin: Yes no symptom reported Psychiatric/Neurological: Yes: no symptom reported Endocrine: Yes: no symptom reported Physical Exam General Appearance: no apparent distress Skin: warm, dry Respiratory: decreased breath sounds Heart: S1S2, RRR Abdomen: soft, bowel sounds present Genitourinary: bladder flat Extremities: pulses present Neurology: alert, oriented Assessment Assessment IMP ESRD ANEMIA RECURRENT PLEURAL EFFUSION HYPOXIC RESP FAILURE UNCONTROLLED HTN NON COMPLIANCE PLAN ENC COMPLIANCE HD MWF THORACENTESIS NEEDED HAS NOT USE HIS PD CATHETER TO DRAIN ANY ASCITES IN NEARLY 2 MONTHS WILL HAVE SURGERY REMOVE PD CATHETER D/W DR HERRERA WILL FOLLOW OSIRIS MEADOWS MD Jan 14, 2019 10:31
--- NOTE | 2019-01-14 11:13 | PDOC ---
PROGRESS NOTES Subjective Subjective lortab not helping in pain Objective Objective Vital Signs Date Time Temp Pulse Resp B/P (MAP) Pulse Ox O2 Delivery O2 Flow Rate FiO2 01/14/19 09:35 94 Nasal Cannula 1.0 01/14/19 08:36 67 160/99 01/14/19 08:13 98.5 98.5 01/14/19 03:20 20 Intake and Output 01/14/19 07:00 Intake Total 250 ml Output Total 2000 ml Balance -1750 ml Intake Oral 250 ml Chest Tube Drainage Total 2000 ml Physical Exam Abdomen: Soft Heart: Regular rate (SR), Normal S1, Normal S2, Other (s4; 3/6 diastolic murmur to ERB) Extremities: No cyanosis, Other (trace LE edema) General: Alert, Oriented X3, Cooperative, No acute distress HEENT: Atraumatic, Mucous membr. moist/pink Lungs: Other (basilar crackles) MUSCULOSKELETAL: Osteoarthritic changes both hands Neuro: Normal speech, Sensation intact Psych/Mental Status: Mental status NL, Mood NL Skin: No breakdown, No significant lesion Diagnosis Problem List Problems Medical Problems: (1) ESRD (end stage renal disease) on dialysis Status: Chronic (2) Nausea & vomiting Status: Acute (3) Right upper lobe pneumonia Status: Acute Assessment Assessment Problems Medical Problems: (1) ESRD (end stage renal disease) on dialysis Status: Chronic (2) Nausea & vomiting Status: Acute (3) Right upper lobe pneumonia Status: Acute FINAL IMPRESSION: 1. Recurrent pleural effusion. 2. End-stage renal disease, on hemodialysis. 3. Hypertension. PLAN: try dilaudid for pain Patient was dialyzed yestarday. He also had thoracocentesis, 2 liters was removed. plans to d/c PD cathter. Plan Plan of Care Problems Medical Problems: (1) ESRD (end stage renal disease) on dialysis Status: Chronic (2) Nausea & vomiting Status: Acute (3) Right upper lobe pneumonia Status: Acute Comment Review of Relevant I have reviewed the following items benjamin (where applicable) has been applied. Labs Laboratory Tests Test 01/14/19 03:45 White Blood Count 5.0 x10^3/uL (4.0-11.0) Red Blood Count 4.06 x10^6/uL (4.30-5.70) Hemoglobin 11.8 g/dL (13.0-17.5) Hematocrit 35.3 % (39.0-53.0) Mean Corpuscular Volume 87 fL (79-100) Mean Corpuscular Hemoglobin 29 pg (25-35) Mean Corpuscular Hemoglobin Concent 33 g/dL (31-37) Red Cell Distribution Width 15.1 % (11.5-14.5) Platelet Count 176 x10^3/uL (140-400) Neutrophils (%) (Auto) 66 % (31-73) Lymphocytes (%) (Auto) 15 % (24-48) Monocytes (%) (Auto) 13 % (0-9) Eosinophils (%) (Auto) 5 % (0-3) Basophils (%) (Auto) 2 % (0-3) Neutrophils # (Auto) 3.3 x10^3/uL (1.8-7.7) Lymphocytes # (Auto) 0.8 x10^3/uL (1.0-4.8) Monocytes # (Auto) 0.6 x10^3/uL (0.0-1.1) Eosinophils # (Auto) 0.2 x10^3/uL (0.0-0.7) Basophils # (Auto) 0.1 x10^3/uL (0.0-0.2) Sodium Level 139 mmol/L (136-145) Potassium Level 3.6 mmol/L (3.5-5.1) Chloride Level 101 mmol/L (98-107) Carbon Dioxide Level 27 mmol/L (21-32) Anion Gap 11 (6-14) Blood Urea Nitrogen 30 mg/dL (8-26) Creatinine 3.8 mg/dL (0.7-1.3) Estimated GFR (Cockcroft-Gault) 20.2 Glucose Level 86 mg/dL (70-99) Calcium Level 8.2 mg/dL (8.5-10.1) Magnesium Level 1.9 mg/dL (1.8-2.4) Microbiology 01/12/19 Blood Culture - Preliminary, Resulted NO GROWTH AFTER 1 DAY Medications Current Medications Acetaminophen (Tylenol) 500 mg 1X PRN PRN PO MILD PAIN / TEMP Last administered on 01/14/19at 10:51; Start 01/13/19 at 13:30; Stop 01/14/19 at 13:29 Acetaminophen/ Hydrocodone Bitart (Lortab 5/325) 1 tab PRN Q6HRS PRN PO PAIN Last administered on 01/14/19at 08:35; Start 01/13/19 at 23:15 Albuterol/ Ipratropium (Duoneb) 3 ml RTQID NEB Last administered on 01/14/19at 08:30; Start 01/14/19 at 08:30 Atorvastatin Calcium (Lipitor) 10 mg QHS PO Last administered on 01/13/19at 20:36; Start 01/13/19 at 21:00 Diphenhydramine HCl (Benadryl) 25 mg 1X PRN PRN IV ITCHING; Start 01/13/19 at 13:30; Stop 01/14/19 at 13:29 Diphenhydramine HCl (Benadryl) 25 mg 1X PRN PRN IV ITCHING; Start 01/13/19 at 13:30; Stop 01/14/19 at 13:29 Info (PHARMACY MONITORING -- do not chart) 1 each PRN DAILY PRN MC SEE COMMENTS; Start 01/13/19 at 13:30 Lidocaine HCl (Xylocaine-Mpf 1% 2ml Vial) 0.5 ml 1X PRN PRN ID FOR HD Last administered on 01/13/19at 14:32; Start 01/13/19 at 13:45 Miscellaneous (Lidoderm Patch Removal) 1 ea QHS MC ; Start 01/13/19 at 21:00 Sodium Chloride 1,000 ml @ 400 mls/hr Q2H30M PRN IV PATENCY; Start 01/13/19 at 13:30; Stop 01/14/19 at 01:29; Status DC Sodium Chloride 1,000 ml @ 1,000 mls/hr Q1H PRN IV hypotension; Start 01/13/19 at 13:30; Stop 01/13/19 at 19:29; Status DC Vitals/I & O Vital Sign - Last 24 Hours 01/13/19 01/13/19 01/13/19 01/13/19 11:34 18:51 18:57 19:24 Temp 98.0 98.0 Pulse 76 70 Resp 18 B/P (MAP) 165/96 (119) 165/96 Pulse Ox 100 96 O2 Delivery Nasal Cannula Nasal Cannula Nasal Cannula O2 Flow Rate 2.0 2.5 2.5 01/13/19 01/13/19 01/13/19 01/13/19 19:36 20:36 20:38 22:29 Temp 98.3 98.3 Pulse 70 70 71 Resp 20 B/P (MAP) 165/96 165/96 138/83 (101) Pulse Ox 98 97 O2 Delivery Nasal Cannula Nasal Cannula O2 Flow Rate 2.0 2.0 01/13/19 01/14/19 01/14/19 01/14/19 23:18 00:18 03:20 07:00 Temp 98.2 98.2 98.2 98.2 Pulse 64 64 Resp 20 20 20 B/P (MAP) 137/89 (105) 137/89 (105) Pulse Ox 97 97 O2 Delivery Nasal Cannula Nasal Cannula Nasal Cannula O2 Flow Rate 2.0 2.0 2.0 01/14/19 01/14/19 01/14/19 01/14/19 08:00 08:13 08:17 08:32 Temp 98.5 98.5 Pulse 67 67 B/P (MAP) 160/99 (119) 160/99 Pulse Ox 97 90 O2 Delivery Nasal Cannula Nasal Cannula Room Air O2 Flow Rate 1.0 2.0 01/14/19 01/14/19 01/14/19 01/14/19 08:33 08:33 08:35 08:36 Pulse 67 67 67 B/P (MAP) 160/99 160/99 160/99 Pulse Ox 92 O2 Delivery Room Air 01/14/19 09:35 Pulse Ox 94 O2 Delivery Nasal Cannula O2 Flow Rate 1.0 Intake and Output 01/13/19 01/13/19 01/14/19 15:00 23:00 07:00 Intake Total 100 ml 150 ml Output Total 2000 ml Balance -2000 ml 100 ml 150 ml ROSALINO SERRANO MD Jan 14, 2019 11:13
[2019-01-14] MEDS: HYDROmorphone 2 MG TABLET PO PRN ×2 (12:22→21:11)
--- NOTE | 2019-01-14 19:07 | PDOC2 ---
CONSULT Date of Consult Date of Consult DATE: 01/14/19 TIME: 15:00 Reason for Consult Reason for Consult: PD cath removal Referring Physician Referring Physician: Dr Bhat Identification/Chief Complaint Chief Complaint inadequate dialysis with PD Source Source: Chart review, Patient History of Present Illness Reason for Visit: Mr Boswell is a 53 yo gentleman with ESRD who was on PD but not adequately managed. Switched to HD and is requesting removal of his PD catheter Past Medical History Cardiovascular: HTN Pulmonary: Asthma CENTRAL NERVOUS SYSTEM: CVA, Periperal neuropathy GI: No pertinent hx Heme/Onc: Anemia NOS Hepatobiliary: No pertinent hx Psych: Anxiety Infectious disease: No pertinent hx Renal/: Chronic renal failure Endocrine: No pertinent hx, Hyperparathyroidism Past Surgical History Past Surgical History: Hernia Repair, Other Family History Family History: Heart Disease, Hypertension, Stroke Social History ALCOHOL: none Drugs: None Lives: with Family Current Problem List Problem List Problems Medical Problems: (1) ESRD (end stage renal disease) on dialysis Status: Chronic (2) Nausea & vomiting Status: Acute (3) Right upper lobe pneumonia Status: Acute Current Medications Current Medications Current Medications Fentanyl Citrate (Fentanyl 2ml Vial) 50 mcg PRN Q15MIN PRN IV PAIN GREATER THAN 3/10 Last administered on 01/13/19at 07:19; Start 01/12/19 at 17:15; Stop 01/13/19 at 09:20; Status DC Albuterol/ Ipratropium (Duoneb) 3 ml 1X ONCE NEB Last administered on 01/12/19at 17:24; Start 01/12/19 at 17:15; Stop 01/12/19 at 17:16; Status DC Labetalol HCl (Normodyne Iv Push) 10 mg 1X ONCE IVP Last administered on 01/12/19at 17:40; Start 01/12/19 at 17:15; Stop 01/12/19 at 17:16; Status DC Clonidine HCl (Catapres) 0.2 mg 1X ONCE PO Last administered on 01/12/19at 17:39; Start 01/12/19 at 17:30; Stop 01/12/19 at 17:33; Status DC Levofloxacin/ Dextrose 100 ml @ 100 mls/hr 1X ONCE IV Last administered on 01/12/19at 18:14; Start 01/12/19 at 18:00; Stop 01/12/19 at 18:59; Status DC Ceftriaxone Sodium (Rocephin) 1 gm 1X ONCE IVP Last administered on 01/12/19 18:13; Start 01/12/19 at 18:00; Stop 01/12/19 at 18:01; Status DC Fentanyl Citrate (Fentanyl 2ml Vial) 75 mcg 1X ONCE IVP Last administered on 01/12/19at 18:07; Start 01/12/19 at 18:00; Stop 01/12/19 at 18:03; Status DC Lorazepam (Ativan Inj) 1 mg 1X ONCE IVP Last administered on 01/12/19 18:15; Start 01/12/19 at 18:15; Stop 01/12/19 at 18:16; Status DC Ondansetron HCl (Zofran) 4 mg 1X ONCE IV Last administered on 01/12/19at 18:15; Start 01/12/19 at 18:15; Stop 01/12/19 at 18:16; Status DC Ondansetron HCl (Zofran) 4 mg PRN Q8HRS PRN IV NAUSEA/VOMITING; Start 01/12/19 at 19:30; Stop 01/13/19 at 19:29; Status DC Fentanyl Citrate (Fentanyl 2ml Vial) 50 mcg PRN Q1HR PRN IV PAIN Last administered on 01/13/19 06:03; Start 01/12/19 at 19:30; Stop 01/13/19 at 19:29; Status DC Albuterol/ Ipratropium (Duoneb) 3 ml RTQID NEB Last administered on 01/14/19at 08:16; Start 01/12/19 at 20:00; Stop 01/13/19 at 19:59; Status DC Albuterol Sulfate (Ventolin Neb Soln) 2.5 mg PRN Q4HRS PRN NEB SHORTNESS OF BREATH; Start 01/13/19 at 09:15 Alprazolam (Xanax) 0.25 mg PRN DAILY PRN PO ANXIETY / AGITATION Last administered on 01/14/19at 00:26; Start 01/13/19 at 09:15 Aspirin (Ecotrin) 325 mg DAILYWBKFT PO Last administered on 01/14/19at 08:34; Start 01/13/19 at 10:00 Atorvastatin Calcium (Lipitor) 10 mg QHS PO Last administered on 01/13/19 20:36; Start 01/13/19 at 21:00 Calcium/Vitamin D (Oscal D 500mg/ 200uts) 1 tab BIDWMEALS PO Last administered on 01/14/19 17:07; Start 01/13/19 at 10:00 Carvedilol (Coreg) 6.25 mg BIDWMEALS PO Last administered on 01/14/19 17:09; Start 01/13/19 at 10:00 Cetirizine HCl (ZyrTEC) 10 mg DAILY PO Last administered on 01/14/19 08:34; Start 01/13/19 at 10:00 Clonidine HCl (Catapres) 0.2 mg BID PO Last administered on 01/14/19 08:33; Start 01/13/19 at 10:00 Docusate Sodium (Colace) 100 mg DAILY PRN PO HARD STOOLS Last administered on 01/14/19 08:34; Start 01/13/19 at 09:15 Duloxetine HCl (Cymbalta) 30 mg DAILY PO Last administered on 01/14/19 08:33; Start 01/13/19 at 10:00 Hydralazine HCl (Apresoline) 50 mg BID PO Last administered on 01/14/19 08:36; Start 01/13/19 at 10:00 Lidocaine (Lidoderm) 1 patch DAILY TD ; Start 01/13/19 at 10:00 Polyethylene Glycol (miraLAX PACKET) 17 gm DAILY PRN PO CONSTIPATION; Start 01/13/19 at 09:15 Miscellaneous (Lidoderm Patch Removal) 1 ea QHS MC ; Start 01/13/19 at 21:00 Isosorbide Mononitrate (Imdur) 30 mg DAILY PO Last administered on 01/14/19 08:33; Start 01/13/19 at 11:00 Sodium Chloride 1,000 ml @ 1,000 mls/hr Q1H PRN IV hypotension; Start 01/13/19 at 13:30; Stop 01/13/19 at 19:29; Status DC Acetaminophen (Tylenol) 500 mg 1X PRN PRN PO MILD PAIN / TEMP Last administered on 01/14/19 10:51; Start 01/13/19 at 13:30; Stop 01/14/19 at 13:29; Status DC Diphenhydramine HCl (Benadryl) 25 mg 1X PRN PRN IV ITCHING; Start 01/13/19 at 13:30; Stop 01/14/19 at 13:29; Status DC Diphenhydramine HCl (Benadryl) 25 mg 1X PRN PRN IV ITCHING; Start 01/13/19 at 13:30; Stop 01/14/19 at 13:29; Status DC Sodium Chloride 1,000 ml @ 400 mls/hr Q2H30M PRN IV PATENCY; Start 01/13/19 at 13:30; Stop 01/14/19 at 01:29; Status DC Info (PHARMACY MONITORING -- do not chart) 1 each PRN DAILY PRN MC SEE COMMENTS; Start 01/13/19 at 13:30 Lidocaine HCl (Xylocaine-Mpf 1% 2ml Vial) 0.5 ml 1X PRN PRN ID FOR HD Last administered on 01/13/19at 14:32; Start 01/13/19 at 13:45 Acetaminophen/ Hydrocodone Bitart (Lortab 5/325) 1 tab PRN Q6HRS PRN PO PAIN Last administered on 01/14/19at 08:35; Start 01/13/19 at 23:15 Albuterol/ Ipratropium (Duoneb) 3 ml RTQID NEB Last administered on 01/14/19at 15:38; Start 01/14/19 at 08:30 Hydromorphone HCl (Dilaudid) 1 mg PRN Q4HRS PRN PO PAIN Last administered on 01/14/19at 12:22; Start 01/14/19 at 11:15 Active Scripts Active Coreg (Carvedilol) 6.25 Mg Tablet 6.25 Mg PO BIDWMEALS 30 Days Atorvastatin Calcium 10 Mg Tablet 10 Mg PO QHS 30 Days Colace (Docusate Sodium) 100 Mg Capsule 100 Mg PO DAILY PRN Polyethylene Glycol 3350 17 Gm Powd.pack 17 Gm PO DAILY PRN Lidocaine PATCH (Lidocaine) 1 Each Adh..patch 1 Patch TD DAILY 30 Days Proair Hfa (Albuterol Sulfate) 8.5 Gm Hfa.aer.ad 2.5 Mg NEB PRN Q4HRS PRN 30 Days Cetirizine Hcl 10 Mg Tablet 10 Mg PO DAILY 30 Days Oyster Shell 500 Mg + Vit D Tb (Calcium Carbonate/Vitamin D3) 1 Each Tablet 1 Tab PO BIDWMEALS 30 Days Aspirin Ec (Aspirin) 325 Mg Tablet. 325 Mg PO DAILYWBKFT 30 Days Reported Clonidine Hcl 0.2 Mg Tablet 0.2 Mg PO BID Alprazolam 0.25 Mg Tablet 1 Tab PO PRN DAILY PRN Cymbalta (Duloxetine Hcl) 30 Mg Capsule. 1 Cap PO DAILY Hydralazine Hcl 50 Mg Tablet 1 Tab PO BID Allergies Allergies: Coded Allergies: lisinopril (Verified Allergy, Severe, Swelling, 06/03/18) codeine (Verified Allergy, Intermediate, itching, 12/05/18) TAKES LORTAB AT HOME IN THE PAST I S O L A T I O N *CONTACT* (Verified Allergy, Unknown, 06/03/18) +MRSA nares 01/15/18 morphine (Verified Allergy, Unknown, 01/13/19) Patient states this medication does not work. He denies it being a true allergy. ROS General: YES: Fatigue Physical Exam General: Alert, No acute distress HEENT: Atraumatic Lungs: Normal air movement Heart: Regular rate Abdomen: Soft, Other (PD cath left abdomen) Vitals VITALS Vital Signs Date Time Temp Pulse Resp B/P (MAP) Pulse Ox O2 Delivery O2 Flow Rate FiO2 01/14/19 17:09 67 126/91 01/14/19 15:39 97 Nasal Cannula 1.0 01/14/19 15:00 98.2 18 98.2 Labs Labs Laboratory Tests Test 01/12/19 20:40 01/12/19 22:25 01/13/19 01:43 01/13/19 03:53 Lactic Acid Level 1.1 mmol/L (0.4-2.0) Troponin I Quantitative 0.103 ng/mL (0.000-0.055) 0.119 ng/mL (0.000-0.055) Prothrombin Time 15.2 SEC (11.7-14.0) Prothromb Time International Ratio 1.2 (0.8-1.1) Sodium Level 138 mmol/L (136-145) Potassium Level 5.5 mmol/L (3.5-5.1) Chloride Level 106 mmol/L (98-107) Carbon Dioxide Level 18 mmol/L (21-32) Anion Gap 14 (6-14) Blood Urea Nitrogen 47 mg/dL (8-26) Creatinine 5.0 mg/dL (0.7-1.3) Estimated GFR (Cockcroft-Gault) 14.7 Glucose Level 89 mg/dL (70-99) Calcium Level 8.4 mg/dL (8.5-10.1) Test 01/13/19 03:55 01/14/19 03:45 White Blood Count 4.8 x10^3/uL (4.0-11.0) 5.0 x10^3/uL (4.0-11.0) Red Blood Count 4.38 x10^6/uL (4.30-5.70) 4.06 x10^6/uL (4.30-5.70) Hemoglobin 12.7 g/dL (13.0-17.5) 11.8 g/dL (13.0-17.5) Hematocrit 38.5 % (39.0-53.0) 35.3 % (39.0-53.0) Mean Corpuscular Volume 88 fL (79-100) 87 fL (79-100) Mean Corpuscular Hemoglobin 29 pg (25-35) 29 pg (25-35) Mean Corpuscular Hemoglobin Concent 33 g/dL (31-37) 33 g/dL (31-37) Red Cell Distribution Width 15.7 % (11.5-14.5) 15.1 % (11.5-14.5) Platelet Count 192 x10^3/uL (140-400) 176 x10^3/uL (140-400) Neutrophils (%) (Auto) 63 % (31-73) 66 % (31-73) Lymphocytes (%) (Auto) 18 % (24-48) 15 % (24-48) Monocytes (%) (Auto) 14 % (0-9) 13 % (0-9) Eosinophils (%) (Auto) 3 % (0-3) 5 % (0-3) Basophils (%) (Auto) 2 % (0-3) 2 % (0-3) Neutrophils # (Auto) 3.0 x10^3/uL (1.8-7.7) 3.3 x10^3/uL (1.8-7.7) Lymphocytes # (Auto) 0.9 x10^3/uL (1.0-4.8) 0.8 x10^3/uL (1.0-4.8) Monocytes # (Auto) 0.7 x10^3/uL (0.0-1.1) 0.6 x10^3/uL (0.0-1.1) Eosinophils # (Auto) 0.2 x10^3/uL (0.0-0.7) 0.2 x10^3/uL (0.0-0.7) Basophils # (Auto) 0.1 x10^3/uL (0.0-0.2) 0.1 x10^3/uL (0.0-0.2) Sodium Level 139 mmol/L (136-145) Potassium Level 3.6 mmol/L (3.5-5.1) Chloride Level 101 mmol/L (98-107) Carbon Dioxide Level 27 mmol/L (21-32) Anion Gap 11 (6-14) Blood Urea Nitrogen 30 mg/dL (8-26) Creatinine 3.8 mg/dL (0.7-1.3) Estimated GFR (Cockcroft-Gault) 20.2 Glucose Level 86 mg/dL (70-99) Calcium Level 8.2 mg/dL (8.5-10.1) Magnesium Level 1.9 mg/dL (1.8-2.4) Laboratory Tests Test 01/14/19 03:45 White Blood Count 5.0 x10^3/uL (4.0-11.0) Red Blood Count 4.06 x10^6/uL (4.30-5.70) Hemoglobin 11.8 g/dL (13.0-17.5) Hematocrit 35.3 % (39.0-53.0) Mean Corpuscular Volume 87 fL (79-100) Mean Corpuscular Hemoglobin 29 pg (25-35) Mean Corpuscular Hemoglobin Concent 33 g/dL (31-37) Red Cell Distribution Width 15.1 % (11.5-14.5) Platelet Count 176 x10^3/uL (140-400) Neutrophils (%) (Auto) 66 % (31-73) Lymphocytes (%) (Auto) 15 % (24-48) Monocytes (%) (Auto) 13 % (0-9) Eosinophils (%) (Auto) 5 % (0-3) Basophils (%) (Auto) 2 % (0-3) Neutrophils # (Auto) 3.3 x10^3/uL (1.8-7.7) Lymphocytes # (Auto) 0.8 x10^3/uL (1.0-4.8) Monocytes # (Auto) 0.6 x10^3/uL (0.0-1.1) Eosinophils # (Auto) 0.2 x10^3/uL (0.0-0.7) Basophils # (Auto) 0.1 x10^3/uL (0.0-0.2) Sodium Level 139 mmol/L (136-145) Potassium Level 3.6 mmol/L (3.5-5.1) Chloride Level 101 mmol/L (98-107) Carbon Dioxide Level 27 mmol/L (21-32) Anion Gap 11 (6-14) Blood Urea Nitrogen 30 mg/dL (8-26) Creatinine 3.8 mg/dL (0.7-1.3) Estimated GFR (Cockcroft-Gault) 20.2 Glucose Level 86 mg/dL (70-99) Calcium Level 8.2 mg/dL (8.5-10.1) Magnesium Level 1.9 mg/dL (1.8-2.4) Assessment/Plan Assessment/Plan failed PD will remove catheter early in the week Thanks for consult LUZ ELENA HERRERA MD Jan 14, 2019 19:07
[2019-01-14] MEDS: PATCH REMOVAL. MC SCH (21:00)
[2019-01-14] MEDS: ATORVASTATIN CALCIUM 10 MG TABLET. PO SCH (21:09)
[2019-01-15 03:55] VITALS: BP 151/92
[2019-01-15 07:00] VITALS: BP 151/105
[2019-01-15] MEDS: IPRATRPIUM/ALBUTEROL 0.5/2.5MG 3 ML NEBU. NEB SCH ×4 (07:59→19:47)
[2019-01-15] MEDS: LIDOCAINE (700MG/PATCH) PATCH. TD SCH (08:30)
[2019-01-15] MEDS: CETIRIZINE HCL 10 MG TABLET. PO SCH (08:31)
[2019-01-15] MEDS: CALCIUM CARB/VIT D3 500/200 TABLET. PO SCH ×2 (08:31→17:41)
[2019-01-15] MEDS: ASPIRIN ENTERIC COATED 325 MG TABLET.DR. PO SCH (08:31)
[2019-01-15] MEDS: DULoxetine HCL 30 MG CAPSULE.DR PO SCH (08:31)
[2019-01-15] MEDS: cloNIDine HCL 0.2 MG TABLET PO SCH ×2 (08:32→21:12)
[2019-01-15] MEDS: ISOSORBIDE MONONITRATE ER 30 MG TAB.ER.24H PO SCH (08:33)
[2019-01-15] MEDS: CARVEDILOL 6.25 MG TABLET. PO SCH ×2 (08:33→17:43)
--- NOTE | 2019-01-15 09:35 | PDOC ---
Renal-Progress Notes Subjective Notes Notes NOTHING NEW History of Present Illness Hx of present illness STABLE Vitals Vitals Vital Signs Date Time Temp Pulse Resp B/P (MAP) Pulse Ox O2 Delivery O2 Flow Rate FiO2 01/15/19 08:33 71 151/105 01/15/19 07:59 100 Nasal Cannula 2.0 01/15/19 07:00 97.6 20 97.6 Weight Weight [ ] I.O. Intake and Output Intake and Output 01/15/19 07:00 Intake Total 920 ml Output Total 0 ml Balance 920 ml Intake Oral 920 ml Output Urine Total 0 ml Micro Micro Microbiology 01/12/19 Blood Culture - Preliminary, Resulted NO GROWTH AFTER 2 DAYS Review of Systems Constitutional: yes: alert, oriented Ears/Nose/Throat: Yes: no symptom reported Eyes: Yes: no symptom reported Pulmonary: Yes dyspnea Cardiovascular: Yes no symptom reported Gastrointestional: Yes: constipation Genitourinary: Yes: no symptom reported Musculoskeletal: Yes: muscle stiffness Skin: Yes no symptom reported Psychiatric/Neurological: Yes: no symptom reported Endocrine: Yes: no symptom reported Physical Exam General Appearance: no apparent distress Skin: warm, dry Respiratory: decreased breath sounds Heart: S1S2, RRR Abdomen: soft, bowel sounds present Genitourinary: bladder flat Extremities: pulses present Neurology: alert, oriented Assessment Assessment IMP ESRD ANEMIA RECURRENT PLEURAL EFFUSION HYPOXIC RESP FAILURE UNCONTROLLED HTN NON COMPLIANCE PLAN ENC COMPLIANCE HD TOMORROW THORACENTESIS NEEDED HAS NOT USE HIS PD CATHETER TO DRAIN ANY ASCITES IN NEARLY 2 MONTHS PD CATHETER OUT THIS WK D/W DR HERRERA WILL FOLLOW OSIRIS MEADOWS MD Jan 15, 2019 09:35
--- NOTE | 2019-01-15 09:49 | PDOC ---
PULMONARY PROGRESS NOTES Subjective remains on 2 liters N/C, denies SOB, denies increase cough Vitals Vital Signs Date Time Temp Pulse Resp B/P (MAP) Pulse Ox O2 Delivery O2 Flow Rate FiO2 01/15/19 08:33 71 151/105 01/15/19 07:59 100 Nasal Cannula 2.0 01/15/19 07:00 97.6 20 97.6 ROS: No Nausea, No Chest Pain, No Abdominal Pain, No Increase Cough General: Alert, No acute distress Lungs: Clear, Other Cardiovascular: S1, S2 Abdomen: Soft, Other (PD cath in place ) Neuro Exam: Alert, Oriented, Normal Speech Extremities: No Edema Skin: Warm, Dry Labs Laboratory Tests Test 01/14/19 03:45 White Blood Count 5.0 x10^3/uL (4.0-11.0) Red Blood Count 4.06 x10^6/uL (4.30-5.70) Hemoglobin 11.8 g/dL (13.0-17.5) Hematocrit 35.3 % (39.0-53.0) Mean Corpuscular Volume 87 fL (79-100) Mean Corpuscular Hemoglobin 29 pg (25-35) Mean Corpuscular Hemoglobin Concent 33 g/dL (31-37) Red Cell Distribution Width 15.1 % (11.5-14.5) Platelet Count 176 x10^3/uL (140-400) Neutrophils (%) (Auto) 66 % (31-73) Lymphocytes (%) (Auto) 15 % (24-48) Monocytes (%) (Auto) 13 % (0-9) Eosinophils (%) (Auto) 5 % (0-3) Basophils (%) (Auto) 2 % (0-3) Neutrophils # (Auto) 3.3 x10^3/uL (1.8-7.7) Lymphocytes # (Auto) 0.8 x10^3/uL (1.0-4.8) Monocytes # (Auto) 0.6 x10^3/uL (0.0-1.1) Eosinophils # (Auto) 0.2 x10^3/uL (0.0-0.7) Basophils # (Auto) 0.1 x10^3/uL (0.0-0.2) Sodium Level 139 mmol/L (136-145) Potassium Level 3.6 mmol/L (3.5-5.1) Chloride Level 101 mmol/L (98-107) Carbon Dioxide Level 27 mmol/L (21-32) Anion Gap 11 (6-14) Blood Urea Nitrogen 30 mg/dL (8-26) Creatinine 3.8 mg/dL (0.7-1.3) Estimated GFR (Cockcroft-Gault) 20.2 Glucose Level 86 mg/dL (70-99) Calcium Level 8.2 mg/dL (8.5-10.1) Magnesium Level 1.9 mg/dL (1.8-2.4) Medications Active Scripts Medications Dose Route/Sig Max Daily Dose Days Date Category Coreg (Carvedilol) 6.25 Mg Tablet 6.25 Mg PO BIDWMEALS 30 01/03/19 Rx Atorvastatin Calcium 10 Mg Tablet 10 Mg PO QHS 30 12/07/18 Rx Clonidine Hcl 0.2 Mg Tablet 0.2 Mg PO BID 11/29/18 Reported Alprazolam 0.25 Mg Tablet 1 Tab PO PRN DAILY PRN 11/29/18 Reported Cymbalta (Duloxetine Hcl) 30 Mg Capsule. 1 Cap PO DAILY 11/29/18 Reported Hydralazine Hcl 50 Mg Tablet 1 Tab PO BID 11/29/18 Reported Colace (Docusate Sodium) 100 Mg Capsule 100 Mg PO DAILY PRN 10/14/18 Rx Polyethylene Glycol 3350 17 Gm Powd.pack 17 Gm PO DAILY PRN 10/14/18 Rx Lidocaine PATCH (Lidocaine) 1 Each Adh..patch 1 Patch TD DAILY 10/10/18 Rx Proair Hfa (Albuterol Sulfate) 8.5 Gm Hfa.aer.ad 2.5 Mg NEB PRN Q4HRS PRN 30 10/10/18 Rx Cetirizine Hcl 10 Mg Tablet 10 Mg PO DAILY 30 10/10/18 Rx Oyster Shell 500 Mg + Vit D Tb (Calcium Carbonate/Vitamin D3) 1 Each Tablet 1 Tab PO BIDWMEALS 30 01/31/18 Rx Aspirin Ec (Aspirin) 325 Mg Tablet. 325 Mg PO DAILYWBKFT 30 10/25/17 Rx Impression . 1. Recurrent acute hypoxic respiratory failure, secondary to recurrent right- sided pleural effusion.--improved 2. Recurrent right-sided pleural effusion related to poor control of blood pressure with multiple admissions for hypertensive emergencies and [id number] diastolic heart failure. Previously, he was on peritoneal dialysis and was switched to hemodialysis to have better control of his effusion, but it has not improved. He is not a candidate for PleurX catheter due to the likelihood of infection if left for a long period of time. 3. End-stage renal disease, on hemodialysis. 4. Hypertension, under poor control. Plan . 1. Status post thoracentesis on 01/13 --- improved CXR and clinically 2. He needs to have better control of his blood pressure. --- remains Hypertensive, ECHO 06/28: moderate concentric left ventricular hypertrophy, The Ejection Fraction is 55-60%. trace to mild aortic regurgitation. 3. Follow chest x-ray as needed. 4. Wean off oxygen. 5. Not the best candidate for PleurX catheter D/W RN . OK WITH [facility] FLACO RAMESH MD Jan 15, 2019 09:49
[2019-01-15] MEDS: amLODIPine BESYLATE 10 MG TABLET PO SCH (10:56)
[2019-01-15 11:00] VITALS: BP 103/61
--- NOTE | 2019-01-15 11:18 | PDOC ---
PROGRESS NOTES Subjective Subjective pain control better with Dilaudid Objective Objective Vital Signs Date Time Temp Pulse Resp B/P (MAP) Pulse Ox O2 Delivery O2 Flow Rate FiO2 01/15/19 10:56 61 103/61 01/15/19 07:59 100 Nasal Cannula 2.0 01/15/19 07:00 97.6 20 97.6 Intake and Output 01/15/19 07:00 Intake Total 920 ml Output Total 0 ml Balance 920 ml Intake Oral 920 ml Output Urine Total 0 ml Physical Exam Abdomen: Soft, Other (PD cath left abdomen) Heart: Regular rate Extremities: No cyanosis, Other (trace LE edema) General: Alert, No acute distress HEENT: Atraumatic Lungs: Normal air movement MUSCULOSKELETAL: Osteoarthritic changes both hands Neuro: Normal speech, Sensation intact Psych/Mental Status: Mental status NL, Mood NL Skin: No breakdown, No significant lesion Diagnosis Problem List Problems Medical Problems: (1) ESRD (end stage renal disease) on dialysis Status: Chronic (2) Nausea & vomiting Status: Acute (3) Right upper lobe pneumonia Status: Acute Assessment Assessment Problems Medical Problems: (1) ESRD (end stage renal disease) on dialysis Status: Chronic (2) Nausea & vomiting Status: Acute (3) Right upper lobe pneumonia Status: Acute FINAL IMPRESSION: 1. Recurrent pleural effusion. 2. End-stage renal disease, on hemodialysis. 3. Hypertension. PLAN: dilaudid for pain control Patient was dialyzed 01/13 , next one 01/16 He also had thoracocentesis, 2 liters was removed. plans to d/c PD cathter early this week. Plan Plan of Care Problems Medical Problems: (1) ESRD (end stage renal disease) on dialysis Status: Chronic (2) Nausea & vomiting Status: Acute (3) Right upper lobe pneumonia Status: Acute Comment Review of Relevant I have reviewed the following items benjamin (where applicable) has been applied. Labs Microbiology 01/12/19 Blood Culture - Preliminary, Resulted NO GROWTH AFTER 2 DAYS Medications Current Medications Amlodipine Besylate (Norvasc) 10 mg DAILY PO Last administered on 01/15/19at 10:56; Start 01/15/19 at 10:00 Vitals/I & O Vital Sign - Last 24 Hours 01/14/19 01/14/19 01/14/19 01/14/19 11:40 12:22 13:22 15:00 Temp 98.2 98.2 Pulse 63 Resp 18 B/P (MAP) 132/83 (99) Pulse Ox 96 97 97 96 O2 Delivery Nasal Cannula Nasal Cannula Nasal Cannula Nasal Cannula O2 Flow Rate 1.0 1.0 1.0 1.0 01/14/19 01/14/19 01/14/19 01/14/19 15:39 17:09 19:30 20:20 Temp 97.6 97.6 Pulse 67 66 Resp 20 B/P (MAP) 126/91 133/89 (104) Pulse Ox 97 98 O2 Delivery Nasal Cannula Nasal Cannula Nasal Cannula O2 Flow Rate 1.0 2.0 2.0 01/14/19 01/14/19 01/14/19 01/14/19 20:29 21:10 21:10 21:11 Pulse 66 65 Resp 20 B/P (MAP) 133/189 133/89 Pulse Ox 97 97 O2 Delivery Nasal Cannula Nasal Cannula O2 Flow Rate 2.0 2.0 01/14/19 01/14/19 01/15/19 01/15/19 22:11 23:30 03:55 07:00 Temp 97.8 97.8 97.6 97.8 97.8 97.6 Pulse 64 58 56 Resp 18 18 18 20 B/P (MAP) 130/84 (99) 151/92 (111) 151/105 (120) Pulse Ox 98 98 99 98 O2 Delivery Nasal Cannula Nasal Cannula Nasal Cannula Nasal Cannula O2 Flow Rate 2.0 2.0 2.0 2.0 01/15/19 01/15/19 01/15/19 01/15/19 07:48 07:59 08:32 08:32 Pulse 71 71 B/P (MAP) 151/105 151/105 Pulse Ox 100 O2 Delivery Nasal Cannula Nasal Cannula O2 Flow Rate 2.0 2.0 01/15/19 01/15/19 01/15/19 08:33 08:33 10:56 Pulse 71 71 61 B/P (MAP) 151/105 151/105 103/61 Intake and Output 01/14/19 01/14/19 01/15/19 15:00 23:00 07:00 Intake Total 500 ml 120 ml 300 ml Output Total 0 ml 0 ml 0 ml Balance 500 ml 120 ml 300 ml ROSALINO SERRANO MD Jan 15, 2019 11:18
--- NOTE | 2019-01-15 13:06 | PDOC ---
Provider Note Provider Note SURG no new complaints will d/c PD catheter before leaving the hospital when cardiac/renal status allow LUZ ELENA HERRERA MD Jan 15, 2019 13:06
[2019-01-15 15:00] VITALS: BP 124/75
[2019-01-15 19:48] VITALS: BP 113/64
[2019-01-15] MEDS: PATCH REMOVAL. MC SCH (21:00)
[2019-01-15] MEDS: ATORVASTATIN CALCIUM 10 MG TABLET. PO SCH (21:11)
[2019-01-15] MEDS: HYDROmorphone 2 MG TABLET PO PRN (21:12)
[2019-01-15] MEDS ORDERED: ONDANSETRON PF 4 MG/2 ML VIAL. IVP PRN (22:30)
[2019-01-15 22:35] VITALS: BP 110/69
[2019-01-16 02:52] VITALS: BP 116/81
[2019-01-16 07:00] VITALS: BP 138/85
[2019-01-16] MEDS: IPRATRPIUM/ALBUTEROL 0.5/2.5MG 3 ML NEBU. NEB SCH ×4 (07:46→20:11)
--- NOTE | 2019-01-16 08:33 | NUR ---
IP: Pt now has 2 negative screens and may be removed from contact precautions.
[2019-01-16] MEDS: ISOSORBIDE MONONITRATE ER 30 MG TAB.ER.24H PO SCH (08:35)
[2019-01-16] MEDS: CALCIUM CARB/VIT D3 500/200 TABLET. PO SCH ×2 (08:35→16:47)
[2019-01-16] MEDS: CETIRIZINE HCL 10 MG TABLET. PO SCH (08:36)
[2019-01-16] MEDS: DOCUSATE SODIUM 100 MG CAPSULE. PO PRN (08:36)
[2019-01-16] MEDS: ASPIRIN ENTERIC COATED 325 MG TABLET.DR. PO SCH (08:36)
[2019-01-16] MEDS: cloNIDine HCL 0.2 MG TABLET PO SCH ×2 (08:38→20:50)
[2019-01-16] MEDS: DULoxetine HCL 30 MG CAPSULE.DR PO SCH (08:39)
[2019-01-16] MEDS: CARVEDILOL 6.25 MG TABLET. PO SCH ×2 (08:39→16:48)
[2019-01-16] MEDS: amLODIPine BESYLATE 10 MG TABLET PO SCH (08:40)
[2019-01-16] MEDS: LIDOCAINE (700MG/PATCH) PATCH. TD SCH (08:42)
--- NOTE | 2019-01-16 09:07 | PDOC ---
BERTIN MACK APRN 01/16/19 0907: SURGICAL PROGRESS NOTE Subjective no complaints tolerating breakfast Vital Signs Vital Signs Date Time Temp Pulse Resp B/P (MAP) Pulse Ox O2 Delivery O2 Flow Rate FiO2 01/16/19 08:40 56 138/85 01/16/19 07:47 96 Room Air 01/16/19 07:00 98.0 18 98.0 01/16/19 02:52 2.0 I&O Intake and Output 01/16/19 07:00 Intake Total 1080 ml Output Total 0 ml Balance 1080 ml Intake Oral 1080 ml Output Urine Total 0 ml General: Alert, Oriented X3, Cooperative, No acute distress Abdomen: Soft, Other (pd cath in place) Labs Laboratory Tests Test 01/14/19 17:30 Nasal Screen MRSA (PCR) Negative (Negative) Problem List Problems Medical Problems: (1) ESRD (end stage renal disease) on dialysis Status: Chronic (2) Nausea & vomiting Status: Acute (3) Right upper lobe pneumonia Status: Acute Assessment/Plan will review with Dr Herrera for surgery plans LUZ ELENA HERRERA MD 01/16/19 1236: SURGICAL PROGRESS NOTE Assessment/Plan as above will remove PD catheter before he leaves PND med/renal clearance BERTIN MACK APRN Jan 16, 2019 09:07 LUZ ELENA HERRERA MD Jan 16, 2019 12:36
[2019-01-16] MEDS: HYDROmorphone 2 MG TABLET PO PRN ×2 (10:00→20:53)
[2019-01-16] MEDS ORDERED: IV NORMAL SALINE 1000ML BAG 1,000 ML IV PRN ×2 (10:10)
[2019-01-16] MEDS ORDERED: ALBUMIN HUMAN 25% 200 ML IV PRN (10:15)
[2019-01-16] MEDS ORDERED: DIALYSIS PATIENT. MC PRN ×2 (10:15)
--- NOTE | 2019-01-16 10:22 | PDOC ---
PROGRESS NOTES Subjective Subjective going to dialysis today Objective Objective Vital Signs Date Time Temp Pulse Resp B/P (MAP) Pulse Ox O2 Delivery O2 Flow Rate FiO2 01/16/19 10:00 92 Room Air 01/16/19 08:40 56 138/85 01/16/19 07:00 98.0 18 98.0 01/16/19 02:52 2.0 Intake and Output 01/16/19 06:59 Intake Total 1080 ml Output Total 0 ml Balance 1080 ml Intake Oral 1080 ml Output Urine Total 0 ml Physical Exam Abdomen: Soft, Other (pd cath in place) Heart: Regular rate Extremities: No cyanosis, Other (trace LE edema) General: Alert, Oriented X3, Cooperative, No acute distress HEENT: Atraumatic Lungs: Normal air movement MUSCULOSKELETAL: Osteoarthritic changes both hands Neuro: Normal speech, Sensation intact Psych/Mental Status: Mental status NL, Mood NL Skin: No breakdown, No significant lesion Diagnosis Problem List Problems Medical Problems: (1) ESRD (end stage renal disease) on dialysis Status: Chronic (2) Nausea & vomiting Status: Acute (3) Right upper lobe pneumonia Status: Acute Assessment Assessment Problems Medical Problems: (1) ESRD (end stage renal disease) on dialysis Status: Chronic (2) Nausea & vomiting Status: Acute (3) Right upper lobe pneumonia Status: Acute FINAL IMPRESSION: 1. Recurrent pleural effusion. 2. End-stage renal disease, on hemodialysis. 3. Hypertension. PLAN: dilaudid for pain control working better dialysis today, labs reviewed ok He also had rt thoracocentesis, 2 liters was removed. plans to d/c PD cathter ? tomorrow. Plan Plan of Care Problems Medical Problems: (1) ESRD (end stage renal disease) on dialysis Status: Chronic (2) Nausea & vomiting Status: Acute (3) Right upper lobe pneumonia Status: Acute Comment Review of Relevant I have reviewed the following items benjamin (where applicable) has been applied. Labs Microbiology 01/12/19 Blood Culture - Preliminary, Resulted NO GROWTH AFTER 3 DAYS Medications Current Medications Albumin Human 200 ml @ 200 mls/hr 1X PRN PRN IV Hypotension; Start 01/16/19 at 10:15; Stop 01/16/19 at 16:14 Info (PHARMACY MONITORING -- do not chart) 1 each PRN DAILY PRN MC SEE COMMENTS; Start 01/16/19 at 10:15 Info (PHARMACY MONITORING -- do not chart) 1 each PRN DAILY PRN MC SEE COMMENTS; Start 01/16/19 at 10:15; Status UNV Ondansetron HCl (Zofran) 8 mg PRN Q6HRS PRN IVP NAUSEA/VOMITING Last administered on 01/15/19at 22:55; Start 01/15/19 at 22:30 Sodium Chloride 1,000 ml @ 400 mls/hr Q2H30M PRN IV PATENCY; Start 01/16/19 at 10:10; Stop 01/16/19 at 22:09 Sodium Chloride 1,000 ml @ 1,000 mls/hr Q1H PRN IV hypotension; Start 01/16/19 at 10:10; Stop 01/16/19 at 16:09 Vitals/I & O Vital Sign - Last 24 Hours 01/15/19 01/15/19 01/15/19 01/15/19 10:56 11:00 11:43 15:00 Temp 97.6 97.9 97.6 97.9 Pulse 61 60 63 Resp 18 18 B/P (MAP) 103/61 103/61 (75) 124/75 (91) Pulse Ox 94 96 98 O2 Delivery Nasal Cannula Nasal Cannula Nasal Cannula O2 Flow Rate 2.0 2.0 2.0 01/15/19 01/15/19 01/15/19 01/15/19 15:46 17:43 19:45 19:48 Temp 97.5 97.5 Pulse 66 56 Resp 16 B/P (MAP) 117/80 113/64 (80) Pulse Ox 96 98 O2 Delivery Nasal Cannula Room Air Nasal Cannula O2 Flow Rate 2.0 2.0 01/15/19 01/15/19 01/15/19 01/15/19 21:11 21:12 21:12 22:12 Pulse 56 56 Resp 20 18 B/P (MAP) 113/64 113/64 Pulse Ox 98 99 O2 Delivery Nasal Cannula Nasal Cannula O2 Flow Rate 2.0 2.0 01/15/19 01/16/19 01/16/19 01/16/19 22:35 02:52 07:00 07:47 Temp 97.4 98.1 98.0 97.4 98.1 98.0 Pulse 54 54 55 Resp 18 18 18 B/P (MAP) 110/69 (83) 116/81 (93) 138/85 (102) Pulse Ox 99 95 94 96 O2 Delivery Nasal Cannula Nasal Cannula Room Air Room Air O2 Flow Rate 2.0 2.0 01/16/19 01/16/19 01/16/19 01/16/19 08:35 08:37 08:38 08:39 Pulse 56 56 56 56 B/P (MAP) 138/85 138/85 138/85 138/85 01/16/19 01/16/19 08:40 10:00 Pulse 56 B/P (MAP) 138/85 Pulse Ox 92 O2 Delivery Room Air Intake and Output 01/15/19 01/15/19 01/16/19 14:59 22:59 06:59 Intake Total 180 ml 300 ml 600 ml Output Total 0 ml Balance 180 ml 300 ml 600 ml ROSALINO SERRANO MD Jan 16, 2019 10:22
[2019-01-16] MEDS ORDERED: LIDOCAINE 1% PF 2 ML VIAL. ID ONE (10:30)
--- NOTE | 2019-01-16 10:32 | PDOC ---
PULMONARY PROGRESS NOTES Subjective remains on 2 liters N/C, denies SOB, denies increase cough Vitals Vital Signs Date Time Temp Pulse Resp B/P (MAP) Pulse Ox O2 Delivery O2 Flow Rate FiO2 01/16/19 10:00 92 Room Air 01/16/19 08:40 56 138/85 01/16/19 07:00 98.0 18 98.0 01/16/19 02:52 2.0 ROS: No Nausea, No Chest Pain, No Abdominal Pain, No Increase Cough General: Alert, No acute distress Lungs: Other (decrease right base) Cardiovascular: S1, S2 Abdomen: Soft, Other (PD cath in place ) Neuro Exam: Alert, Oriented, Normal Speech Extremities: No Edema Skin: Warm, Dry Labs Laboratory Tests Test 01/14/19 17:30 Nasal Screen MRSA (PCR) Negative (Negative) Medications Active Scripts Medications Dose Route/Sig Max Daily Dose Days Date Category Coreg (Carvedilol) 6.25 Mg Tablet 6.25 Mg PO BIDWMEALS 30 01/03/19 Rx Atorvastatin Calcium 10 Mg Tablet 10 Mg PO QHS 30 12/07/18 Rx Clonidine Hcl 0.2 Mg Tablet 0.2 Mg PO BID 11/29/18 Reported Alprazolam 0.25 Mg Tablet 1 Tab PO PRN DAILY PRN 11/29/18 Reported Cymbalta (Duloxetine Hcl) 30 Mg Capsule. 1 Cap PO DAILY 11/29/18 Reported Hydralazine Hcl 50 Mg Tablet 1 Tab PO BID 11/29/18 Reported Colace (Docusate Sodium) 100 Mg Capsule 100 Mg PO DAILY PRN 10/14/18 Rx Polyethylene Glycol 3350 17 Gm Powd.pack 17 Gm PO DAILY PRN 10/14/18 Rx Lidocaine PATCH (Lidocaine) 1 Each Adh..patch 1 Patch TD DAILY 10/10/18 Rx Proair Hfa (Albuterol Sulfate) 8.5 Gm Hfa.aer.ad 2.5 Mg NEB PRN Q4HRS PRN 30 10/10/18 Rx Cetirizine Hcl 10 Mg Tablet 10 Mg PO DAILY 30 10/10/18 Rx Oyster Shell 500 Mg + Vit D Tb (Calcium Carbonate/Vitamin D3) 1 Each Tablet 1 Tab PO BIDWMEALS 30 01/31/18 Rx Aspirin Ec (Aspirin) 325 Mg Tablet. 325 Mg PO DAILYWBKFT 30 10/25/17 Rx Impression . 1. Recurrent acute hypoxic respiratory failure, secondary to recurrent right-si ded pleural effusion.--improved 2. Recurrent right-sided pleural effusion related to poor control of blood pressure with multiple admissions for hypertensive emergencies and [id number] diastolic heart failure. Previously, he was on peritoneal dialy sis and was switched to hemodialysis to have better control of his effusion, but it has not improved. He is not a candidate for PleurX catheter due to the likelihood of infection if left for a long period of time in the setting of diastolic HF 3. End-stage renal disease, on hemodialysis. 4. Hypertension, under poor control. Plan . 1. Status post thoracentesis on 01/13 --- improved CXR and clinically 2. He needs to have better control of his blood pressure. --- remains Hypertensive, ECHO 06/28: moderate concentric left ventricular hypertrophy, The Ejection Fraction is 55-60%. trace to mild aortic regurgitation. 3. Follow chest x-ray as needed. 4. Wean off oxygen. 5. Not the best candidate for PleurX catheter 6. PD catheter to be removed today D/W RN . OK WITH DC HOME LATER FLACO RAMESH MD Jan 16, 2019 10:32
--- NOTE | 2019-01-16 10:45 | PDOC ---
Renal-Progress Notes Subjective Notes Notes NO NEW COMPLAINTS History of Present Illness Hx of present illness STABLE Vitals Vitals Vital Signs Date Time Temp Pulse Resp B/P (MAP) Pulse Ox O2 Delivery O2 Flow Rate FiO2 01/16/19 10:00 92 Room Air 01/16/19 08:40 56 138/85 01/16/19 07:00 98.0 18 98.0 01/16/19 02:52 2.0 Weight Weight [ ] I.O. Intake and Output Intake and Output 01/16/19 07:00 Intake Total 1080 ml Output Total 0 ml Balance 1080 ml Intake Oral 1080 ml Output Urine Total 0 ml Micro Micro Microbiology 01/12/19 Blood Culture - Preliminary, Resulted NO GROWTH AFTER 3 DAYS Review of Systems Constitutional: yes: alert, oriented Ears/Nose/Throat: Yes: no symptom reported Eyes: Yes: no symptom reported Pulmonary: Yes dyspnea Cardiovascular: Yes no symptom reported Gastrointestional: Yes: constipation Genitourinary: Yes: no symptom reported Musculoskeletal: Yes: muscle stiffness Skin: Yes no symptom reported Psychiatric/Neurological: Yes: no symptom reported Endocrine: Yes: no symptom reported Physical Exam General Appearance: no apparent distress Skin: warm, dry Respiratory: decreased breath sounds Heart: S1S2, RRR Abdomen: soft, bowel sounds present Genitourinary: bladder flat Extremities: pulses present Neurology: alert, oriented Assessment Assessment IMP ESRD ANEMIA RECURRENT PLEURAL EFFUSION HYPOXIC RESP FAILURE UNCONTROLLED HTN NON COMPLIANCE PLAN ENC COMPLIANCE HD TODAY UF TO DW THORACENTESIS NEEDED PD CATHETER OUT THIS WK D/W DR HERRERA WILL FOLLOW OSIRIS MEADOWS MD Jan 16, 2019 10:45
[2019-01-16 11:00] VITALS: BP 107/66
--- NOTE | 2019-01-16 14:15 | NUR ---
SS following up with discharge planning. Pt is currently on room air. No discharge needs noted at this time. SS will continue to follow for discharge planning.
[2019-01-16 19:55] VITALS: BP 127/85
[2019-01-16] MEDS: ATORVASTATIN CALCIUM 10 MG TABLET. PO SCH (20:50)
[2019-01-16] MEDS: PATCH REMOVAL. MC SCH (21:00)
[2019-01-16 23:36] VITALS: BP 104/68
[2019-01-16] MEDS: HYDROcodone/APAP 5/325MG 1 TAB TABLET PO PRN (23:55)
[2019-01-17 02:18] VITALS: BP 121/84
[2019-01-17 06:21] LABS: ALBUMIN 2.9 g/dL (3.4-5.0); ALBUMIN/GLOBULIN RATIO 0.9 (1.0-1.7); CALCIUM 8.5 mg/dL (8.5-10.1); CREATININE 4.2 mg/dL (0.7-1.3); POTASSIUM 4.2 mmol/L (3.5-5.1); TOTAL BILIRUBIN 0.4 mg/dL (0.2-1.0); TOTAL PROTEIN 6.1 g/dL (6.4-8.2)
[2019-01-17 07:00] VITALS: BP 139/89
[2019-01-17] MEDS: IPRATRPIUM/ALBUTEROL 0.5/2.5MG 3 ML NEBU. NEB SCH ×4 (07:31→20:00)
[2019-01-17] MEDS: CARVEDILOL 6.25 MG TABLET. PO SCH ×2 (08:00→17:50)
[2019-01-17] MEDS: CALCIUM CARB/VIT D3 500/200 TABLET. PO SCH ×2 (08:35→16:15)
[2019-01-17] MEDS: ISOSORBIDE MONONITRATE ER 30 MG TAB.ER.24H PO SCH (08:36)
[2019-01-17] MEDS: amLODIPine BESYLATE 10 MG TABLET PO SCH (08:36)
[2019-01-17] MEDS: DOCUSATE SODIUM 100 MG CAPSULE. PO PRN (08:36)
[2019-01-17] MEDS: ASPIRIN ENTERIC COATED 325 MG TABLET.DR. PO SCH (08:37)
[2019-01-17] MEDS: DULoxetine HCL 30 MG CAPSULE.DR PO SCH (08:37)
[2019-01-17] MEDS: CETIRIZINE HCL 10 MG TABLET. PO SCH (08:37)
[2019-01-17] MEDS: LIDOCAINE (700MG/PATCH) PATCH. TD SCH (08:38)
--- NOTE | 2019-01-17 09:32 | PDOC ---
PULMONARY PROGRESS NOTES Subjective pt not more soa Vitals Vital Signs Date Time Temp Pulse Resp B/P (MAP) Pulse Ox O2 Delivery O2 Flow Rate FiO2 01/17/19 08:37 58 139/89 01/17/19 07:31 95 Nasal Cannula 2.0 01/17/19 07:00 98.1 18 98.1 ROS: No Nausea, No Chest Pain, No Abdominal Pain, No Increase Cough General: Alert, No acute distress Lungs: Other (decrease right base) Cardiovascular: S1, S2 Abdomen: Soft, Other (PD cath in place ) Neuro Exam: Alert, Oriented, Normal Speech Extremities: No Edema Skin: Warm, Dry Labs Laboratory Tests Test 01/17/19 05:12 Sodium Level 141 mmol/L (136-145) Potassium Level 4.2 mmol/L (3.5-5.1) Chloride Level 103 mmol/L (98-107) Carbon Dioxide Level 30 mmol/L (21-32) Anion Gap 8 (6-14) Blood Urea Nitrogen 27 mg/dL (8-26) Creatinine 4.2 mg/dL (0.7-1.3) Estimated GFR (Cockcroft-Gault) 18.0 BUN/Creatinine Ratio 6 (6-20) Glucose Level 93 mg/dL (70-99) Calcium Level 8.5 mg/dL (8.5-10.1) Total Bilirubin 0.4 mg/dL (0.2-1.0) Aspartate Amino Transf (AST/SGOT) 23 U/L (15-37) Alanine Aminotransferase (ALT/SGPT) 35 U/L (16-63) Alkaline Phosphatase 110 U/L (46-116) Total Protein 6.1 g/dL (6.4-8.2) Albumin 2.9 g/dL (3.4-5.0) Albumin/Globulin Ratio 0.9 (1.0-1.7) Laboratory Tests Test 01/17/19 05:12 Sodium Level 141 mmol/L (136-145) Potassium Level 4.2 mmol/L (3.5-5.1) Chloride Level 103 mmol/L (98-107) Carbon Dioxide Level 30 mmol/L (21-32) Anion Gap 8 (6-14) Blood Urea Nitrogen 27 mg/dL (8-26) Creatinine 4.2 mg/dL (0.7-1.3) Estimated GFR (Cockcroft-Gault) 18.0 BUN/Creatinine Ratio 6 (6-20) Glucose Level 93 mg/dL (70-99) Calcium Level 8.5 mg/dL (8.5-10.1) Total Bilirubin 0.4 mg/dL (0.2-1.0) Aspartate Amino Transf (AST/SGOT) 23 U/L (15-37) Alanine Aminotransferase (ALT/SGPT) 35 U/L (16-63) Alkaline Phosphatase 110 U/L (46-116) Total Protein 6.1 g/dL (6.4-8.2) Albumin 2.9 g/dL (3.4-5.0) Albumin/Globulin Ratio 0.9 (1.0-1.7) Medications Active Scripts Medications Dose Route/Sig Max Daily Dose Days Date Category Coreg (Carvedilol) 6.25 Mg Tablet 6.25 Mg PO BIDWMEALS 30 01/03/19 Rx Atorvastatin Calcium 10 Mg Tablet 10 Mg PO QHS 30 12/07/18 Rx Clonidine Hcl 0.2 Mg Tablet 0.2 Mg PO BID 11/29/18 Reported Alprazolam 0.25 Mg Tablet 1 Tab PO PRN DAILY PRN 11/29/18 Reported Cymbalta (Duloxetine Hcl) 30 Mg Capsule. 1 Cap PO DAILY 11/29/18 Reported Hydralazine Hcl 50 Mg Tablet 1 Tab PO BID 11/29/18 Reported Colace (Docusate Sodium) 100 Mg Capsule 100 Mg PO DAILY PRN 10/14/18 Rx Polyethylene Glycol 3350 17 Gm Powd.pack 17 Gm PO DAILY PRN 10/14/18 Rx Lidocaine PATCH (Lidocaine) 1 Each Adh..patch 1 Patch TD DAILY 10/10/18 Rx Proair Hfa (Albuterol Sulfate) 8.5 Gm Hfa.aer.ad 2.5 Mg NEB PRN Q4HRS PRN 10/10/18 Rx Cetirizine Hcl 10 Mg Tablet 10 Mg PO DAILY 10/10/18 Rx Oyster Shell 500 Mg + Vit D Tb (Calcium Carbonate/Vitamin D3) 1 Each Tablet 1 Tab PO BIDWMEALS 30 01/31/18 Rx Aspirin Ec (Aspirin) 325 Mg Tablet. 325 Mg PO DAILYWBKFT 10/25/17 Rx Impression . 1. Recurrent acute hypoxic respiratory failure, secondary to recurrent right- sided pleural effusion.--improved 2. Recurrent right-sided pleural effusion s/p thoracentesis 3. End-stage renal disease, on hemodialysis. 4. Hypertension, under poor control. Plan . PAT FEELS BETTER HD CATH PENDING CHICA KEMP MD Jan 17, 2019 09:32
--- NOTE | 2019-01-17 09:40 | PDOC ---
PROGRESS NOTES Subjective Subjective no new problems Objective Objective Vital Signs Date Time Temp Pulse Resp B/P (MAP) Pulse Ox O2 Delivery O2 Flow Rate FiO2 01/17/19 08:37 58 139/89 01/17/19 07:31 95 Nasal Cannula 2.0 01/17/19 07:00 98.1 18 98.1 Intake and Output 01/17/19 06:59 Intake Total 1180 ml Output Total 200 ml Balance 980 ml Intake Oral 1180 ml Output Urine Total 200 ml Physical Exam Abdomen: Soft, Other (pd cath in place) Heart: Regular rate Extremities: No cyanosis, Other (trace LE edema) General: Alert, Oriented X3, Cooperative, No acute distress HEENT: Atraumatic Lungs: Normal air movement MUSCULOSKELETAL: Osteoarthritic changes both hands Neuro: Normal speech, Sensation intact Psych/Mental Status: Mental status NL, Mood NL Skin: No breakdown, No significant lesion Diagnosis Problem List Problems Medical Problems: (1) ESRD (end stage renal disease) on dialysis Status: Chronic (2) Nausea & vomiting Status: Acute (3) Right upper lobe pneumonia Status: Acute Assessment Assessment Problems Medical Problems: (1) ESRD (end stage renal disease) on dialysis Status: Chronic (2) Nausea & vomiting Status: Acute (3) Right upper lobe pneumonia Status: Acute FINAL IMPRESSION: 1. Recurrent pleural effusion. 2. End-stage renal disease, on hemodialysis. 3. Hypertension. PLAN: waiting for PD catheter removal. repeat cxr today dilaudid for pain control working better dialysis tomorrow, labs reviewed ok He also had rt thoracocentesis, 2 liters was removed. Plan Plan of Care Problems Medical Problems: (1) ESRD (end stage renal disease) on dialysis Status: Chronic (2) Nausea & vomiting Status: Acute (3) Right upper lobe pneumonia Status: Acute Comment Review of Relevant I have reviewed the following items benjamin (where applicable) has been applied. Labs Laboratory Tests Test 01/17/19 05:12 Sodium Level 141 mmol/L (136-145) Potassium Level 4.2 mmol/L (3.5-5.1) Chloride Level 103 mmol/L (98-107) Carbon Dioxide Level 30 mmol/L (21-32) Anion Gap 8 (6-14) Blood Urea Nitrogen 27 mg/dL (8-26) Creatinine 4.2 mg/dL (0.7-1.3) Estimated GFR (Cockcroft-Gault) 18.0 BUN/Creatinine Ratio 6 (6-20) Glucose Level 93 mg/dL (70-99) Calcium Level 8.5 mg/dL (8.5-10.1) Total Bilirubin 0.4 mg/dL (0.2-1.0) Aspartate Amino Transf (AST/SGOT) 23 U/L (15-37) Alanine Aminotransferase (ALT/SGPT) 35 U/L (16-63) Alkaline Phosphatase 110 U/L (46-116) Total Protein 6.1 g/dL (6.4-8.2) Albumin 2.9 g/dL (3.4-5.0) Albumin/Globulin Ratio 0.9 (1.0-1.7) Microbiology 01/12/19 Blood Culture - Preliminary, Resulted NO GROWTH AFTER 4 DAYS Medications Current Medications Albumin Human 200 ml @ 200 mls/hr 1X PRN PRN IV Hypotension; Start 01/16/19 at 10:15; Stop 01/16/19 at 16:14; Status DC Info (PHARMACY MONITORING -- do not chart) 1 each PRN DAILY PRN MC SEE COMMENTS; Start 01/16/19 at 10:15 Info (PHARMACY MONITORING -- do not chart) 1 each PRN DAILY PRN MC SEE COMMENTS; Start 01/16/19 at 10:15; Status UNV Lidocaine HCl (Xylocaine-Mpf 1% 2ml Vial) 0.5 ml 1X ONCE ID ; Start 01/16/19 at 10:30; Stop 01/16/19 at 10:31; Status DC Sodium Chloride 1,000 ml @ 400 mls/hr Q2H30M PRN IV PATENCY; Start 01/16/19 at 10:10; Stop 01/16/19 at 22:09; Status DC Sodium Chloride 1,000 ml @ 1,000 mls/hr Q1H PRN IV hypotension; Start 01/16/19 at 10:10; Stop 01/16/19 at 16:09; Status DC Vitals/I & O Vital Sign - Last 24 Hours 01/16/19 01/16/19 01/16/19 01/16/19 10:00 11:00 11:00 16:48 Temp 97.9 97.9 Pulse 55 62 Resp 18 B/P (MAP) 107/66 (80) 161/99 Pulse Ox 92 94 98 O2 Delivery Room Air Room Air Room Air 01/16/19 01/16/19 01/16/19 01/16/19 19:45 19:55 20:11 20:50 Temp 98.2 98.2 Pulse 62 62 Resp 18 B/P (MAP) 127/85 (99) 127/85 Pulse Ox 94 96 O2 Delivery Room Air Nasal Cannula Room Air O2 Flow Rate 2.0 2.0 01/16/19 01/16/19 01/16/19 01/16/19 20:50 20:53 21:51 23:36 Temp 98.0 98.0 Pulse 62 59 Resp 18 B/P (MAP) 127/85 104/68 (80) Pulse Ox 93 O2 Delivery Nasal Cannula Nasal Cannula Nasal Cannula O2 Flow Rate 2.0 2.0 2.0 01/16/19 01/17/19 01/17/19 01/17/19 23:55 00:55 02:18 07:00 Temp 97.9 98.1 97.9 98.1 Pulse 56 51 Resp 18 18 B/P (MAP) 121/84 (96) 139/89 (106) Pulse Ox 97 98 O2 Delivery Room Air Room Air Nasal Cannula Nasal Cannula O2 Flow Rate 2.0 2.0 01/17/19 01/17/19 01/17/19 01/17/19 07:31 08:36 08:36 08:37 Pulse 58 58 58 B/P (MAP) 139/89 139/89 139/89 Pulse Ox 95 O2 Delivery Nasal Cannula O2 Flow Rate 2.0 Intake and Output 01/16/19 01/16/19 01/17/19 14:59 22:59 06:59 Intake Total 380 ml 800 ml Output Total 200 ml Balance 380 ml 600 ml ROSALINO SERRANO MD Jan 17, 2019 09:40
--- NOTE | 2019-01-17 10:47 | PDOC ---
Renal-Progress Notes Subjective Notes Notes NO NEW COMPLAINTS History of Present Illness Hx of present illness STABLE Vitals Vitals Vital Signs Date Time Temp Pulse Resp B/P (MAP) Pulse Ox O2 Delivery O2 Flow Rate FiO2 01/17/19 08:37 58 139/89 01/17/19 08:00 Nasal Cannula 2.0 01/17/19 07:31 95 01/17/19 07:00 98.1 18 98.1 Weight Weight [ ] I.O. Intake and Output Intake and Output 01/17/19 06:59 Intake Total 1180 ml Output Total 200 ml Balance 980 ml Intake Oral 1180 ml Output Urine Total 200 ml Labs Labs Laboratory Tests Test 01/17/19 05:12 Sodium Level 141 mmol/L (136-145) Potassium Level 4.2 mmol/L (3.5-5.1) Chloride Level 103 mmol/L (98-107) Carbon Dioxide Level 30 mmol/L (21-32) Anion Gap 8 (6-14) Blood Urea Nitrogen 27 mg/dL (8-26) Creatinine 4.2 mg/dL (0.7-1.3) Estimated GFR (Cockcroft-Gault) 18.0 BUN/Creatinine Ratio 6 (6-20) Glucose Level 93 mg/dL (70-99) Calcium Level 8.5 mg/dL (8.5-10.1) Total Bilirubin 0.4 mg/dL (0.2-1.0) Aspartate Amino Transf (AST/SGOT) 23 U/L (15-37) Alanine Aminotransferase (ALT/SGPT) 35 U/L (16-63) Alkaline Phosphatase 110 U/L (46-116) Total Protein 6.1 g/dL (6.4-8.2) Albumin 2.9 g/dL (3.4-5.0) Albumin/Globulin Ratio 0.9 (1.0-1.7) Micro Micro Microbiology 01/12/19 Blood Culture - Preliminary, Resulted NO GROWTH AFTER 4 DAYS Review of Systems Constitutional: yes: alert, oriented Ears/Nose/Throat: Yes: no symptom reported Eyes: Yes: no symptom reported Pulmonary: Yes dyspnea Cardiovascular: Yes no symptom reported Gastrointestional: Yes: constipation Genitourinary: Yes: no symptom reported Musculoskeletal: Yes: muscle stiffness Skin: Yes no symptom reported Psychiatric/Neurological: Yes: no symptom reported Endocrine: Yes: no symptom reported Physical Exam General Appearance: no apparent distress Skin: warm, dry Respiratory: decreased breath sounds Heart: S1S2, RRR Abdomen: soft, bowel sounds present Genitourinary: bladder flat Extremities: pulses present Neurology: alert, oriented Assessment Assessment IMP ESRD ANEMIA RECURRENT PLEURAL EFFUSION HYPOXIC RESP FAILURE UNCONTROLLED HTN-BETTER NON COMPLIANCE PLAN ENC COMPLIANCE HD TOMORROW PD CATHETER OUT TOMORROW THEN D/C D/W DR SERRANO WILL FOLLOW OSIRIS MEADOWS MD Jan 17, 2019 10:47
[2019-01-17 11:00] VITALS: BP 122/80
--- NOTE | 2019-01-17 13:09 | PDOC ---
Provider Note Provider Note SURG for removal PD catheter tomorrow around 10:30 has medicine/cardiology clearance LUZ ELENA HERRERA MD Jan 17, 2019 13:09
[2019-01-17 15:17] VITALS: BP 146/100
[2019-01-17] MEDS: cloNIDine HCL 0.2 MG TABLET PO SCH ×2 (16:15→20:55)
[2019-01-17] MEDS: HYDROmorphone 2 MG TABLET PO PRN (16:24)
--- NOTE | 2019-01-17 16:39 | RAD ---
Chest radiograph 01/17/2019 9:37 AM INDICATION: Pleural effusion COMPARISON: 01/13/2019 TECHNIQUE: Frontal and lateral views of the chest are provided. FINDINGS: The cardiomediastinal silhouette is enlarged, stable. Interval increase in now moderate right pleural effusion with adjacent compressive atelectasis versus infiltrate. Lobar atelectasis of the right middle and lower lobe suspected. Left lung is relatively clear with exception of minimal left basilar subsegmental atelectasis. No significant pulmonary vascular congestion. No pneumothorax. Anterior cervical discectomy and fusion hardware is partially profiled. No significant osseous abnormality is identified. IMPRESSION: Increase in now moderate right pleural effusion with adjacent compressive atelectasis versus infiltrate involving the right lower and middle lobes. Electronically signed by: Payton Bernabe MD (01/17/2019 4:36 PM) [facility]
[2019-01-17 19:00] VITALS: BP 111/69
[2019-01-17] MEDS: ATORVASTATIN CALCIUM 10 MG TABLET. PO SCH (20:55)
[2019-01-17] MEDS: PATCH REMOVAL. MC SCH (20:56)
[2019-01-17 23:00] VITALS: BP 121/83
[2019-01-18 03:00] VITALS: BP 139/88
[2019-01-18] MEDS ORDERED: IV NORMAL SALINE 1000ML BAG 1,000 ML IV SCH (06:30)
[2019-01-18 07:00] VITALS: BP 153/98
[2019-01-18] MEDS ORDERED: PROCHLORPERAZINE 10 MG/2 ML VIAL. IV PRN (07:00)
[2019-01-18] MEDS ORDERED: fentaNYL PF VIAL 100 MCG/2 ML VIAL IV PRN (07:00)
[2019-01-18] MEDS ORDERED: HYDROmorphone 2 MG/ML VIAL IV PRN (07:00)
[2019-01-18] MEDS ORDERED: LIDOCAINE 1% PF 2 ML VIAL. ID PRN (07:00)
[2019-01-18] MEDS ORDERED: ONDANSETRON PF 4 MG/2 ML VIAL. IV PRN (07:00)
[2019-01-18] MEDS ORDERED: IV RINGERS,LACTATED 1000ML 1,000 ML IV SCH (07:00)
[2019-01-18] MEDS: CALCIUM CARB/VIT D3 500/200 TABLET. PO SCH ×2 (08:00→20:18)
[2019-01-18] MEDS: IPRATRPIUM/ALBUTEROL 0.5/2.5MG 3 ML NEBU. NEB SCH ×5 (08:03→20:03)
[2019-01-18] MEDS: CARVEDILOL 6.25 MG TABLET. PO SCH ×2 (08:14→20:19)
[2019-01-18] MEDS ORDERED: IV NORMAL SALINE 1000ML BAG 1,000 ML IV PRN ×2 (08:27)
[2019-01-18] MEDS ORDERED: DIALYSIS PATIENT. MC PRN ×2 (08:30)
[2019-01-18] MEDS ORDERED: ALBUMIN HUMAN 25% 200 ML IV PRN (08:30)
[2019-01-18] MEDS ORDERED: 0.9 % SODIUM CHLORIDE 10 ML DISP.SYRIN. IV PRN ×2 (08:30)
[2019-01-18] MEDS: CETIRIZINE HCL 10 MG TABLET. PO SCH (09:00)
[2019-01-18] MEDS: DULoxetine HCL 30 MG CAPSULE.DR PO SCH (09:00)
[2019-01-18] MEDS: cloNIDine HCL 0.2 MG TABLET PO SCH ×2 (09:00→20:19)
[2019-01-18] MEDS: amLODIPine BESYLATE 10 MG TABLET PO SCH (09:00)
[2019-01-18] MEDS: ISOSORBIDE MONONITRATE ER 30 MG TAB.ER.24H PO SCH (09:00)
[2019-01-18] MEDS: LIDOCAINE (700MG/PATCH) PATCH. TD SCH (09:00)
--- NOTE | 2019-01-18 09:34 | PDOC ---
PULMONARY PROGRESS NOTES Subjective pt not more soa Vitals Vital Signs Date Time Temp Pulse Resp B/P (MAP) Pulse Ox O2 Delivery O2 Flow Rate FiO2 01/18/19 08:14 153/98 01/18/19 08:03 96 Nasal Cannula 2.0 01/18/19 07:00 98.4 55 16 98.4 ROS: No Nausea, No Chest Pain, No Abdominal Pain, No Increase Cough General: Alert, No acute distress Lungs: Other (decrease right base) Cardiovascular: S1, S2 Abdomen: Soft, Other (PD cath in place ) Neuro Exam: Alert, Oriented, Normal Speech Extremities: No Edema Skin: Warm, Dry Labs Laboratory Tests Test 01/17/19 05:12 Sodium Level 141 mmol/L (136-145) Potassium Level 4.2 mmol/L (3.5-5.1) Chloride Level 103 mmol/L (98-107) Carbon Dioxide Level 30 mmol/L (21-32) Anion Gap 8 (6-14) Blood Urea Nitrogen 27 mg/dL (8-26) Creatinine 4.2 mg/dL (0.7-1.3) Estimated GFR (Cockcroft-Gault) 18.0 BUN/Creatinine Ratio 6 (6-20) Glucose Level 93 mg/dL (70-99) Calcium Level 8.5 mg/dL (8.5-10.1) Total Bilirubin 0.4 mg/dL (0.2-1.0) Aspartate Amino Transf (AST/SGOT) 23 U/L (15-37) Alanine Aminotransferase (ALT/SGPT) 35 U/L (16-63) Alkaline Phosphatase 110 U/L (46-116) Total Protein 6.1 g/dL (6.4-8.2) Albumin 2.9 g/dL (3.4-5.0) Albumin/Globulin Ratio 0.9 (1.0-1.7) Medications Active Scripts Medications Dose Route/Sig Max Daily Dose Days Date Category Coreg (Carvedilol) 6.25 Mg Tablet 6.25 Mg PO BIDWMEALS 30 01/03/19 Rx Atorvastatin Calcium 10 Mg Tablet 10 Mg PO QHS 30 12/07/18 Rx Clonidine Hcl 0.2 Mg Tablet 0.2 Mg PO BID 11/29/18 Reported Alprazolam 0.25 Mg Tablet 1 Tab PO PRN DAILY PRN 11/29/18 Reported Cymbalta (Duloxetine Hcl) 30 Mg Capsule. 1 Cap PO DAILY 11/29/18 Reported Hydralazine Hcl 50 Mg Tablet 1 Tab PO BID 11/29/18 Reported Colace (Docusate Sodium) 100 Mg Capsule 100 Mg PO DAILY PRN 10/14/18 Rx Polyethylene Glycol 3350 17 Gm Powd.pack 17 Gm PO DAILY PRN 10/14/18 Rx Lidocaine PATCH (Lidocaine) 1 Each Adh..patch 1 Patch TD DAILY 30 10/10/18 Rx Proair Hfa (Albuterol Sulfate) 8.5 Gm Hfa.aer.ad 2.5 Mg NEB PRN Q4HRS PRN 30 10/10/18 Rx Cetirizine Hcl 10 Mg Tablet 10 Mg PO DAILY 30 10/10/18 Rx Oyster Shell 500 Mg + Vit D Tb (Calcium Carbonate/Vitamin D3) 1 Each Tablet 1 Tab PO BIDWMEALS 30 01/31/18 Rx Aspirin Ec (Aspirin) 325 Mg Tablet. 325 Mg PO DAILYWBKFT 30 10/25/17 Rx Impression . 1. Recurrent acute hypoxic respiratory failure, secondary to recurrent right- sided pleural effusion.--improved 2. Recurrent right-sided pleural effusion s/p thoracentesis 3. End-stage renal disease, on hemodialysis. 4. Hypertension, under poor control. Plan . SPOKE WITH DR HERRERA WILL MONITOR FOR NOW 02 PRCHICA ERVIN MD Jan 18, 2019 09:34
[2019-01-18] MEDS ORDERED: DEXAMETHASONE SOD PHOS 4 MG/ML VIAL ONE ×2 (09:52→10:44)
[2019-01-18] MEDS ORDERED: LIDOCAINE 2% PF 5 ML VIAL. ONE ×2 (09:52→10:44)
[2019-01-18] MEDS ORDERED: ONDANSETRON PF 4 MG/2 ML VIAL. ONE ×2 (09:52→10:44)
[2019-01-18] MEDS ORDERED: PROPOFOL 0 ML IV ONE (09:52)
[2019-01-18] MEDS ORDERED: fentaNYL PF VIAL 100 MCG/2 ML VIAL ONE ×2 (09:52→11:14)
[2019-01-18] MEDS ORDERED: BUPIVACAINE-EPI 0.5%-1:200000 MPF 30 ML VIAL. INJ ONE (10:15)
--- NOTE | 2019-01-18 10:32 | PDOC ---
PROGRESS NOTES Subjective Subjective sob today Objective Objective Vital Signs Date Time Temp Pulse Resp B/P (MAP) Pulse Ox O2 Delivery O2 Flow Rate FiO2 01/18/19 10:12 97 55 15 141/95 97 Nasal Cannula 2 97.0 Intake and Output 01/18/19 07:00 Intake Total 720 ml Output Total 600 ml Balance 120 ml Intake Oral 720 ml Output Urine Total 600 ml Physical Exam Abdomen: Soft, Other (pd cath in place) Heart: Regular rate Extremities: No cyanosis, Other (trace LE edema) General: Alert, Oriented X3, Cooperative, No acute distress HEENT: Atraumatic Lungs: Normal air movement MUSCULOSKELETAL: Osteoarthritic changes both hands Neuro: Normal speech, Sensation intact Psych/Mental Status: Mental status NL, Mood NL Skin: No breakdown, No significant lesion Diagnosis Problem List Problems Medical Problems: (1) ESRD (end stage renal disease) on dialysis Status: Chronic (2) Nausea & vomiting Status: Acute (3) Right upper lobe pneumonia Status: Acute Assessment Assessment Problems Medical Problems: (1) ESRD (end stage renal disease) on dialysis Status: Chronic (2) Nausea & vomiting Status: Acute (3) Right upper lobe pneumonia Status: Acute FINAL IMPRESSION: 1. Recurrent pleural effusion. 2. End-stage renal disease, on hemodialysis. 3. Hypertension. 4.PD catheter present PLAN: surgery for PD catheter removal. repeat cxr showed fluid back in rt pleural space. will consult Ir for thoracocentesis dilaudid for pain control working better dialysis today , ? home tomorrow He also had rt thoracocentesis, 2 liters was removed at admission time 1 week ago. Plan Plan of Care Problems Medical Problems: (1) ESRD (end stage renal disease) on dialysis Status: Chronic (2) Nausea & vomiting Status: Acute (3) Right upper lobe pneumonia Status: Acute Comment Review of Relevant I have reviewed the following items benjamin (where applicable) has been applied. Labs Microbiology 01/12/19 Blood Culture - Final, Complete NO GROWTH AFTER 5 DAYS Medications Current Medications Albumin Human 200 ml @ 200 mls/hr 1X PRN PRN IV Hypotension; Start 01/18/19 at 08:30; Stop 01/18/19 at 14:29 Bupivacaine HCl/ Epinephrine Bitart (Sensorcain-Epi 0.5%-1:566789 Mpf) 30 ml 1X ONCE INJ ; Start 01/18/19 at 10:15; Stop 01/18/19 at 10:16; Status DC Dexamethasone Sodium Phosphate (Decadron) 4 mg STK-MED ONCE .ROUTE ; Start 01/18/19 at 09:52; Stop 01/18/19 at 09:53; Status DC Fentanyl Citrate (Fentanyl 2ml Vial) 25 mcg PRN Q5MIN PRN IV MILD PAIN 1-3; Start 01/18/19 at 07:00; Stop 01/19/19 at 06:59 Fentanyl Citrate (Fentanyl 2ml Vial) 50 mcg PRN Q5MIN PRN IV MODERATE TO SEVERE PAIN; Start 01/18/19 at 07:00; Stop 01/19/19 at 06:59 Fentanyl Citrate (Fentanyl 2ml Vial) 100 mcg STK-MED ONCE .ROUTE ; Start 01/18/19 at 09:52; Stop 01/18/19 at 09:53; Status DC Hydromorphone HCl (Dilaudid) 0.5 mg PRN Q10MIN PRN IV SEV PAIN, Second choice; Start 01/18/19 at 07:00; Stop 01/19/19 at 06:59 Info (PHARMACY MONITORING -- do not chart) 1 each PRN DAILY PRN MC SEE COMMENTS; Start 01/18/19 at 08:30 Info (PHARMACY MONITORING -- do not chart) 1 each PRN DAILY PRN MC SEE COMMENTS; Start 01/18/19 at 08:30; Status UNV Lidocaine HCl (Lidocaine Pf 2% Vial) 5 ml STK-MED ONCE .ROUTE ; Start 01/18/19 at 09:52; Stop 01/18/19 at 09:53; Status DC Lidocaine HCl (Xylocaine-Mpf 1% 2ml Vial) 2 ml PRN 1X PRN ID PRIOR TO IV START; Start 01/18/19 at 07:00; Stop 01/19/19 at 06:59 Ondansetron HCl (Zofran) 4 mg PRN Q6HRS PRN IV NAUSEA/VOMITING; Start 01/18/19 at 07:00; Stop 01/19/19 at 06:59 Ondansetron HCl (Zofran) 4 mg STK-MED ONCE .ROUTE ; Start 01/18/19 at 09:52; Stop 01/18/19 at 09:53; Status DC Prochlorperazine Edisylate (Compazine) 5 mg PACU PRN PRN IV NAUSEA, MRX1; Start 01/18/19 at 07:00; Stop 01/19/19 at 06:59 Propofol 20 ml @ As Directed STK-MED ONCE IV ; Start 01/18/19 at 09:52; Stop 01/18/19 at 09:53; Status DC Ringer's Solution 1,000 ml @ 30 mls/hr Q24H IV ; Start 01/18/19 at 07:00; Stop 01/18/19 at 06:30; Status DC Sodium Chloride 1,000 ml @ 0 mls/hr Q0M IV Last administered on 01/18/19at 10:27; Start 01/18/19 at 06:30 Sodium Chloride 1,000 ml @ 400 mls/hr Q2H30M PRN IV PATENCY; Start 01/18/19 at 08:27; Stop 01/18/19 at 20:26 Sodium Chloride 1,000 ml @ 1,000 mls/hr Q1H PRN IV hypotension; Start 01/18/19 at 08:27; Stop 01/18/19 at 14:26 Sodium Chloride (Normal Saline Flush) 10 ml 1X PRN PRN IV AP catheter pack; S tart 01/18/19 at 08:30; Stop 01/19/19 at 08:29 Sodium Chloride (Normal Saline Flush) 10 ml 1X PRN PRN IV BILING[employer] 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 catheter pack; Start 01/18/19 at 08:30; Stop 01/19/19 at 08:29 Vitals/I & O Vital Sign - Last 24 Hours 01/17/19 01/17/19 01/17/19 01/17/19 11:00 11:33 15:17 15:23 Temp 98.3 98.2 98.3 98.2 Pulse 60 60 Resp 18 18 B/P (MAP) 122/80 (94) 146/100 (115) Pulse Ox 99 100 98 98 O2 Delivery Nasal Cannula Nasal Cannula Nasal Cannula Nasal Cannula O2 Flow Rate 2.0 2.0 2.0 2.0 01/17/19 01/17/19 01/17/19 01/17/19 16:15 16:24 17:24 17:50 Pulse 65 67 B/P (MAP) 146/100 146/100 Pulse Ox 95 92 O2 Delivery Room Air Room Air 01/17/19 01/17/19 01/17/1901/17/19 19:00 20:00 20:55 20:56 Temp 98.3 98.3 Pulse 61 61 61 Resp 16 B/P (MAP) 111/69 (83) 111/69 111/69 Pulse Ox 99 O2 Delivery Nasal Cannula Nasal Cannula O2 Flow Rate 2.0 2.0 01/17/19 01/18/19 01/18/19 01/18/19 23:00 03:00 07:00 08:00 Temp 97.6 98.2 98.4 97.6 98.2 98.4 Pulse 54 51 55 Resp 20 16 16 B/P (MAP) 121/83 (96) 139/88 (105) 153/98 (116) Pulse Ox 100 99 100 O2 Delivery Nasal Cannula Nasal Cannula Nasal Cannula Nasal Cannula O2 Flow Rate 2.0 2.0 2.0 2.0 01/18/19 01/18/19 01/18/19 08:03 08:14 10:12 Temp 97 97.0 Pulse 55 Resp 15 B/P (MAP) 153/98 141/95 Pulse Ox 96 97 O2 Delivery Nasal Cannula Nasal Cannula O2 Flow Rate 2.0 2 Intake and Output 01/17/19 01/17/19 01/18/19 15:00 23:00 07:00 Intake Total 480 ml 240 ml Output Total 500 ml 100 ml Balance 480 ml -260 ml -100 ml ROSALINO SERRANO MD Jan 18, 2019 10:32
[2019-01-18] MEDS ORDERED: PROPOFOL 20 ML IV ONE (10:44)
[2019-01-18] MEDS ORDERED: GLYCOPYRROLATE 1 MG/5 ML VIAL. ONE (11:00)
[2019-01-18] MEDS ORDERED: ceFAZolin SODIUM 1 GM VIAL ONE (11:07)
[2019-01-18] MEDS ORDERED: BUPIVACAINE-EPI 0.25%-1:200000 MPF 30 ML VIAL. INJ ONE (11:15)
[2019-01-18] MEDS ORDERED: SEVOFLURANE 61 TO 120 MINUTES. IH ONE (11:25)
[2019-01-18] MEDS ORDERED: hydrALAZINE 20 MG/ML VIAL. ONE (12:05)
--- NOTE | 2019-01-18 12:17 | PDOC ---
BRIEF OPERATIVE NOTE Date: Jan 18, 2019 Pre-Op Diagnosis ESRD, recurrent right pleural effusion Post-Op Diagnosis same, umbilical hernia Procedure Performed removal PD catheter primary repair umbilical and supraumbilical hernias Surgeon Robert Anesthesia Type: General (LMA) Blood Loss 25cc IV Fluid 200cc Specimens Obtained none Findings umbilical and supraumbilical hernias, omental invasion distal PD catheter Complications none Operative Note Wk # [id number] LUZ ELENA HERRERA MD Jan 18, 2019 12:17
--- NOTE | 2019-01-18 12:27 | OP ---
DATE OF SURGERY: 01/18/2019 PREOPERATIVE DIAGNOSIS: End-stage renal disease with recurrent right pleural effusion, requesting removal of PD catheter. POSTOPERATIVE DIAGNOSES: End-stage renal disease with recurrent right pleural effusion, requesting removal of PD catheter with umbilical and supraumbilical hernias. PROCEDURES: 1. Removal of PD catheter. 2. Primary repair of umbilical and supraumbilical hernia. SURGEON: Greg Herrera MD ANESTHESIA: General LMA. BLOOD LOSS: 25. INTRAVENOUS FLUIDS: 200. INDICATIONS: The patient is a 53-year-old who had placement of a peritoneal dialysis catheter to facilitate intermittent drainage of his ascites and peritoneal dialysis. This proved inadequate and he sustained pleural effusions. He was converted to hemodialysis and requested removal of his peritoneal dialysis catheter. OPERATIVE FINDINGS: A small umbilical hernia was present and a smaller supraumbilical hernia was present. Omentum had invaded some of the ports in the pigtail catheter. DESCRIPTION OF PROCEDURE: The patient brought to the operating suite, given a general LMA and the abdomen prepped and draped in usual sterile fashion. A 0.25% Marcaine with epinephrine was infiltrated in the old incision for insertion and extended medially to the midline. Dissection carried down to the anterior sheath. The Dacron cuff above the peritoneum was mobilized and the catheter was delivered from the abdomen gently. This required takedown of some omentum and had migrated into the interstices of the pigtail catheter. This was done carefully with cautery in a hemostatic fashion. The subcutaneous cuff was mobilized and the catheter removed. We then turned our attention to repair of the hernias. The umbilical hernia was closed with interrupted inverted [id number] 0 PDS sutures after excising the hernia sac. Care taken to avoid injury to abdominal contents. The smaller supraumbilical hernia was closed with a single stitch. The fascial defect from the PD catheter was closed with 0 Vicryl. When hemostasis was obtained and a correct sponge count obtained, the incisions were closed with shirin. Sterile dressings applied. The patient was awakened from his anesthetic and taken to the recovery room in satisfactory, but guarded condition. GREG HERRERA MD DR: NORMA/savannah JOB#: [id number] / [id number] ANJUM Harris MD, VENU MD
[2019-01-18] MEDS: fentaNYL PF VIAL 100 MCG/2 ML VIAL IV PRN ×2 (13:21→13:30)
--- NOTE | 2019-01-18 14:02 | PDOC ---
Renal-Progress Notes Subjective Notes Notes NO NEW COMPLAINTS History of Present Illness Hx of present illness STABLE Vitals Vitals Vital Signs Date Time Temp Pulse Resp B/P (MAP) Pulse Ox O2 Delivery O2 Flow Rate FiO2 01/18/19 13:56 20 95 Nasal Cannula 2.0 01/18/19 13:20 52 132/95 01/18/19 12:05 97.5 97.5 Weight Weight [ ] I.O. Intake and Output Intake and Output 01/18/19 07:00 Intake Total 720 ml Output Total 600 ml Balance 120 ml Intake Oral 720 ml Output Urine Total 600 ml Micro Micro Microbiology 01/12/19 Blood Culture - Final, Complete NO GROWTH AFTER 5 DAYS Review of Systems Constitutional: yes: alert, oriented Ears/Nose/Throat: Yes: no symptom reported Eyes: Yes: no symptom reported Pulmonary: Yes dyspnea Cardiovascular: Yes no symptom reported Gastrointestional: Yes: constipation Genitourinary: Yes: no symptom reported Musculoskeletal: Yes: muscle stiffness Skin: Yes no symptom reported Psychiatric/Neurological: Yes: no symptom reported Endocrine: Yes: no symptom reported Physical Exam General Appearance: no apparent distress Skin: warm, dry Respiratory: decreased breath sounds Heart: S1S2, RRR Abdomen: soft, bowel sounds present Genitourinary: bladder flat Extremities: pulses present Neurology: alert, oriented Assessment Assessment IMP ESRD ANEMIA RECURRENT PLEURAL EFFUSION HYPOXIC RESP FAILURE UNCONTROLLED HTN-BETTER NON COMPLIANCE PLAN ENC COMPLIANCE HD TODAY UF TO DW PD CATHETER OUT TODAY WILL NEED ANOTHER THORACENTESIS D/W IR D/W DR SERRANO WILL FOLLOW OSIRIS MEADOWS MD Jan 18, 2019 14:02
[2019-01-18] MEDS: HYDROcodone/APAP 5/325MG 1 TAB TABLET PO PRN ×2 (16:02→22:04)
[2019-01-18] MEDS: HYDROmorphone 2 MG TABLET PO PRN (19:33)
[2019-01-18 19:53] VITALS: BP 148/92
[2019-01-18] MEDS: ASPIRIN ENTERIC COATED 325 MG TABLET.DR. PO SCH (20:18)
[2019-01-18] MEDS: ALPRAZolam 0.25 MG TABLET PO PRN (20:18)
[2019-01-18] MEDS: ATORVASTATIN CALCIUM 10 MG TABLET. PO SCH (20:19)
[2019-01-18] MEDS: PATCH REMOVAL. MC SCH (21:00)
[2019-01-18 22:32] VITALS: BP 128/83
[2019-01-19] VITALS (10 sets, daily range): BP systolic 104–165; BP diastolic 66–106
[2019-01-19] MEDS: HYDROmorphone 2 MG TABLET PO PRN ×3 (02:24→20:28)
[2019-01-19] MEDS: CARVEDILOL 6.25 MG TABLET. PO SCH ×2 (08:00→17:31)
[2019-01-19] MEDS: IPRATRPIUM/ALBUTEROL 0.5/2.5MG 3 ML NEBU. NEB SCH ×4 (08:00→19:06)
--- NOTE | 2019-01-19 08:39 | PDOC ---
BERTIN MACK APRN 01/19/19 0839: SURGICAL PROGRESS NOTE Subjective down for thoracentesis will follow up Vital Signs Vital Signs Date Time Temp Pulse Resp B/P (MAP) Pulse Ox O2 Delivery O2 Flow Rate FiO2 01/19/19 07:00 98.8 57 150/104 (119) 100 Nasal Cannula 2.0 98.8 01/18/19 22:32 22 I&O Intake and Output 01/19/19 07:00 Intake Total 950 ml Output Total 10 ml Balance 940 ml Intake Oral 700 ml IV Total 250 ml Estimated Blood Loss 10 ml Problem List Problems Medical Problems: (1) ESRD (end stage renal disease) on dialysis Status: Chronic (2) Nausea & vomiting Status: Acute (3) Right upper lobe pneumonia Status: Acute LUZ ELENA HERRERA MD 01/19/19 1125: SURGICAL PROGRESS NOTE Assessment/Plan pt seen back from IR no new surg recs BERTIN MACK APRN Jan 19, 2019 08:39 LUZ ELENA HERRERA MD Jan 19, 2019 11:25
[2019-01-19] MEDS: LIDOCAINE (700MG/PATCH) PATCH. TD SCH (09:00)
[2019-01-19] MEDS: CETIRIZINE HCL 10 MG TABLET. PO SCH (09:10)
[2019-01-19] MEDS: CALCIUM CARB/VIT D3 500/200 TABLET. PO SCH ×2 (09:10→17:30)
[2019-01-19] MEDS: cloNIDine HCL 0.2 MG TABLET PO SCH ×2 (09:11→21:15)
[2019-01-19] MEDS: ISOSORBIDE MONONITRATE ER 30 MG TAB.ER.24H PO SCH (09:12)
[2019-01-19] MEDS: ASPIRIN ENTERIC COATED 325 MG TABLET.DR. PO SCH (09:12)
[2019-01-19] MEDS: amLODIPine BESYLATE 10 MG TABLET PO SCH (09:12)
[2019-01-19] MEDS: DOCUSATE SODIUM 100 MG CAPSULE. PO PRN (09:12)
[2019-01-19] MEDS: DULoxetine HCL 30 MG CAPSULE.DR PO SCH (09:14)
--- NOTE | 2019-01-19 09:23 | PDOC ---
PULMONARY PROGRESS NOTES Subjective pt with abd pain not more soa Vitals Vital Signs Date Time Temp Pulse Resp B/P (MAP) Pulse Ox O2 Delivery O2 Flow Rate FiO2 01/19/19 09:20 100 Nasal Cannula 2.0 01/19/19 09:12 59 146/91 01/19/19 08:45 22 01/19/19 07:00 98.8 98.8 ROS: No Nausea, No Chest Pain, No Increase Cough General: Alert Lungs: Clear Cardiovascular: S1, S2 Abdomen: Soft, Other (PD cath in place ) Neuro Exam: Alert, Oriented, Normal Speech Extremities: No Edema Skin: Warm, Dry Medications Active Scripts Medications Dose Route/Sig Max Daily Dose Days Date Category Coreg (Carvedilol) 6.25 Mg Tablet 6.25 Mg PO BIDWMEALS 30 01/03/19 Rx Atorvastatin Calcium 10 Mg Tablet 10 Mg PO QHS 30 12/07/18 Rx Clonidine Hcl 0.2 Mg Tablet 0.2 Mg PO BID 11/29/18 Reported Alprazolam 0.25 Mg Tablet 1 Tab PO PRN DAILY PRN 11/29/18 Reported Cymbalta (Duloxetine Hcl) 30 Mg Capsule. 1 Cap PO DAILY 11/29/18 Reported Hydralazine Hcl 50 Mg Tablet 1 Tab PO BID 11/29/18 Reported Colace (Docusate Sodium) 100 Mg Capsule 100 Mg PO DAILY PRN 10/14/18 Rx Polyethylene Glycol 3350 17 Gm Powd.pack 17 Gm PO DAILY PRN 10/14/18 Rx Lidocaine PATCH (Lidocaine) 1 Each Adh..patch 1 Patch TD DAILY 10/10/18 Rx Proair Hfa (Albuterol Sulfate) 8.5 Gm Hfa.aer.ad 2.5 Mg NEB PRN Q4HRS PRN 30 10/10/18 Rx Cetirizine Hcl 10 Mg Tablet 10 Mg PO DAILY 30 10/10/18 Rx Oyster Shell 500 Mg + Vit D Tb (Calcium Carbonate/Vitamin D3) 1 Each Tablet 1 Tab PO BIDWMEALS 30 01/31/18 Rx Aspirin Ec (Aspirin) 325 Mg Tablet. 325 Mg PO DAILYWBKFT 30 10/25/17 Rx Impression . 1. Recurrent acute hypoxic respiratory failure, secondary to recurrent right- sided pleural effusion. s/p thoracentesis 01/19 2. Recurrent right-sided pleural effusion s/p thoracentesis 3. End-stage renal disease, on hemodialysis. 4. Hypertension, under poor control. 01/18 PREOPERATIVE DIAGNOSIS: End-stage renal disease with recurrent right pleural effusion, requesting removal of PD catheter. POSTOPERATIVE DIAGNOSES: End-stage renal disease with recurrent right pleural effusion, requesting removal of PD catheter with umbilical and supraumbilical hernias. PROCEDURES: 1. Removal of PD catheter. 2. Primary repair of umbilical and supraumbilical hernia. Plan . continue support will check 6 mw prior to d/c 02 CHICA KEMP MD Jan 19, 2019 09:23
--- NOTE | 2019-01-19 10:06 | PDOC ---
PROGRESS NOTES Subjective Subjective belly pain Objective Objective Vital Signs Date Time Temp Pulse Resp B/P (MAP) Pulse Ox O2 Delivery O2 Flow Rate FiO2 01/19/19 09:20 100 Nasal Cannula 2.0 01/19/19 09:12 59 146/91 01/19/19 08:45 22 01/19/19 07:00 98.8 98.8 Intake and Output 01/19/19 07:00 Intake Total 950 ml Output Total 10 ml Balance 940 ml Intake Oral 700 ml IV Total 250 ml Estimated Blood Loss 10 ml Physical Exam Abdomen: Soft, Other (pd cath in place) Heart: Regular rate Extremities: No cyanosis, Other (trace LE edema) General: Alert, Oriented X3, Cooperative, No acute distress HEENT: Atraumatic Lungs: Normal air movement MUSCULOSKELETAL: Osteoarthritic changes both hands Neuro: Normal speech, Sensation intact Psych/Mental Status: Mental status NL, Mood NL Skin: No breakdown, No significant lesion Diagnosis Problem List Problems Medical Problems: (1) ESRD (end stage renal disease) on dialysis Status: Chronic (2) Nausea & vomiting Status: Acute (3) Right upper lobe pneumonia Status: Acute Assessment Assessment Problems Medical Problems: (1) ESRD (end stage renal disease) on dialysis Status: Chronic (2) Nausea & vomiting Status: Acute (3) Right upper lobe pneumonia Status: Acute FINAL IMPRESSION: 1. Recurrent pleural effusion. 2. End-stage renal disease, on hemodialysis. 3. Hypertension. 4.PD catheter present PLAN: D/C home tomorrow after dialysis Pleural drainage today today 01/18/19 PROCEDURES: 1. Removal of PD catheter. 2. Primary repair of umbilical and supraumbilical hernia. pt/ot Plan Plan of Care Problems Medical Problems: (1) ESRD (end stage renal disease) on dialysis Status: Chronic (2) Nausea & vomiting Status: Acute (3) Right upper lobe pneumonia Status: Acute Comment Review of Relevant I have reviewed the following items benjamin (where applicable) has been applied. Labs Microbiology 01/12/19 Blood Culture - Final, Complete NO GROWTH AFTER 5 DAYS Medications Current Medications Bupivacaine HCl/ Epinephrine Bitart (Sensorcain-Epi 0.5%-1:994900 Mpf) 30 ml 1X ONCE INJ ; Start 01/18/19 at 10:15; Stop 01/18/19 at 10:16; Status Cancel Bupivacaine HCl/ Epinephrine Bitart (Sensorcaine-Epi 0.25%-1:948283 Mpf) 30 ml 1X ONCE INJ Last administered on 01/18/19at 10:59; Start 01/18/19 at 11:15; St op 01/18/19 at 11:16; Status DC Cefazolin Sodium (Ancef) 1 gm STK-MED ONCE .ROUTE ; Start 01/18/19 at 11:07; Stop 01/18/19 at 11:07; Status DC Cefazolin Sodium/ Dextrose 50 ml @ 100 mls/hr 1X ONCE IV Last administered on 01/18/19at 10:55; Start 01/18/19 at 11:30; Stop 01/18/19 at 11:59; Status DC Dexamethasone Sodium Phosphate (Decadron) 4 mg STK-MED ONCE .ROUTE ; Start 01/18/19 at 10:44; Stop 01/18/19 at 10:45; Status DC Ephedrine Sulfate (Akovaz) 50 mg STK-MED ONCE .ROUTE ; Start 01/18/19 at 11:26; Stop 01/18/19 at 11:26; Status DC Fentanyl Citrate (Fentanyl 2ml Vial) 100 mcg STK-MED ONCE .ROUTE ; Start 01/18/19 at 11:14; Stop 01/18/19 at 11:15; Status DC Glycopyrrolate (Robinul) 1 mg STK-MED ONCE .ROUTE ; Start 01/18/19 at 11:00; Stop 01/18/19 at 11:00; Status DC Hydralazine HCl (Apresoline Inj) 20 mg STK-MED ONCE .ROUTE ; Start 01/18/19 at 12:05; Stop 01/18/19 at 12:05; Status DC Lidocaine HCl (Lidocaine Pf 2% Vial) 5 ml STK-MED ONCE .ROUTE ; Start 01/18/19 at 10:44; Stop 01/18/19 at 10:45; Status DC Ondansetron HCl (Zofran) 4 mg STK-MED ONCE .ROUTE ; Start 01/18/19 at 10:44; Stop 01/18/19 at 10:45; Status DC Propofol 20 ml @ As Directed STK-MED ONCE IV ; Start 01/18/19 at 10:44; Stop 01/18/19 at 10:45; Status DC Sevoflurane (Ultane) 60 ml STK-MED ONCE IH ; Start 01/18/19 at 11:25; Stop 01/18/19 at 11:25; Status DC Vitals/I & O Vital Sign - Last 24 Hours 01/18/19 01/18/19 01/18/19 01/18/19 10:12 12:05 12:05 12:15 Temp 97 97.5 97.0 97.5 Pulse 55 63 Resp 15 20 B/P (MAP) 141/95 151/118 Pulse Ox 97 95 94 O2 Delivery Nasal Cannula Bi-pap Simple Mask BiPAP/CPAP O2 Flow Rate 2 10 10 01/18/19 01/18/19 01/18/19 01/18/19 12:20 12:35 12:50 13:05 Pulse 58 53 52 52 Resp 20 18 20 22 B/P (MAP) 138/98 138/90 131/90 129/92 Pulse Ox 93 95 100 94 O2 Delivery BiPAP/CPAP BiPAP/CPAP Nasal Cannula O2 Flow Rate 2 01/18/19 01/18/19 01/18/19 01/18/19 13:20 13:21 13:30 13:35 Pulse 52 56 Resp 20 22 20 20 B/P (MAP) 132/95 128/85 Pulse Ox 94 94 94 95 O2 Delivery Nasal Cannula Nasal Cannula Nasal Cannula Nasal Cannula O2 Flow Rate 2 2.0 2.0 01/18/19 01/18/19 01/18/19 01/18/19 13:50 13:56 14:05 14:05 Temp 97.0 97.0 97.0 97.0 Pulse 58 Resp 20 20 20 B/P (MAP) 129/85 129/92 Pulse Ox 94 95 95 O2 Delivery Nasal Cannula Nasal Cannula Nasal Cannula Nasal Cannula O2 Flow Rate 2 2.0 2 2 01/18/19 01/18/19 01/18/19 01/18/19 16:02 17:02 19:33 19:53 Temp 97.8 97.8 Pulse 79 Resp 16 B/P (MAP) 148/92 (110) Pulse Ox 95 99 99 O2 Delivery Nasal Cannula Nasal Cannula Nasal Cannula Nasal Cannula O2 Flow Rate 2.0 2.0 2.0 2.0 01/18/19 01/18/19 01/18/19 01/18/19 20:00 20:07 20:18 20:19 Pulse 79 79 B/P (MAP) 148/92 148/92 Pulse Ox 100 O2 Delivery Nasal Cannula Nasal Cannula O2 Flow Rate 2.0 2.0 01/18/19 01/18/19 01/18/19 01/18/19 20:19 20:33 22:04 22:32 Temp 98.3 98.3 Pulse 79 75 Resp 22 B/P (MAP) 148/92 128/83 (98) Pulse Ox 100 96 O2 Delivery Nasal Cannula Nasal Cannula Nasal Cannula O2 Flow Rate 2.0 2.0 1.0 01/18/19 01/19/19 01/19/19 01/19/19 23:04 02:24 03:00 03:24 Temp 98.0 98.0 Pulse 67 B/P (MAP) 165/106 (125) Pulse Ox 96 98 98 O2 Delivery Nasal Cannula Nasal Cannula Nasal Cannula Nasal Cannula O2 Flow Rate 1.0 1.0 2.0 2.0 01/19/19 01/19/19 01/19/19 01/19/19 07:00 08:00 08:30 08:45 Temp 98.8 98.8 Pulse 57 57 56 Resp 22 22 B/P (MAP) 150/104 (119) 153/95 (114) 146/91 (109) Pulse Ox 100 100 100 O2 Delivery Nasal Cannula Nasal Cannula Nasal Cannula Nasal Cannula O2 Flow Rate 2.0 2.0 4.0 4.0 01/19/19 01/19/19 01/19/19 01/19/19 09:10 09:11 09:12 09:12 Pulse 59 59 59 59 B/P (MAP) 146/91 146/91 146/91 146/91 01/19/19 09:20 Pulse Ox 100 O2 Delivery Nasal Cannula O2 Flow Rate 2.0 Intake and Output 01/18/19 01/18/19 01/19/19 15:00 23:00 07:00 Intake Total 250 ml 50 ml 650 ml Output Total 10 ml Balance 240 ml 50 ml 650 ml ROSALINO SERRANO MD Jan 19, 2019 10:06
[2019-01-19] MEDS: HYDROcodone/APAP 5/325MG 1 TAB TABLET PO PRN (12:55)
[2019-01-19 14:03] LABS: ALBUMIN 2.6 g/dL (3.4-5.0); ALBUMIN/GLOBULIN RATIO 0.9 (1.0-1.7); CALCIUM 8.3 mg/dL (8.5-10.1); CREATININE 4.5 mg/dL (0.7-1.3); GFR 16.6; POTASSIUM 4.2 mmol/L (3.5-5.1); TOTAL BILIRUBIN 0.4 mg/dL (0.2-1.0); TOTAL PROTEIN 5.4 g/dL (6.4-8.2)
[2019-01-19] MEDS: PATCH REMOVAL. MC SCH (21:00)
[2019-01-19] MEDS: ATORVASTATIN CALCIUM 10 MG TABLET. PO SCH (21:15)
[2019-01-19] MEDS: ALPRAZolam 0.25 MG TABLET PO PRN (21:15)
[2019-01-19] MEDS ORDERED: HYDR2TAB31 PO (21:52)
[2019-01-19] MEDS ORDERED: AMLO10TA8 PO (21:52)
[2019-01-19] MEDS ORDERED: ISOS30TA4 PO (21:52)
[2019-01-20 02:41] VITALS: BP 120/74
[2019-01-20 07:00] VITALS: BP 135/89
[2019-01-20] MEDS ORDERED: IV NORMAL SALINE 1000ML BAG 1,000 ML IV PRN ×2 (07:23)
[2019-01-20] MEDS ORDERED: 0.9 % SODIUM CHLORIDE 10 ML DISP.SYRIN. IV PRN ×2 (07:30)
[2019-01-20] MEDS ORDERED: ALBUMIN HUMAN 25% 200 ML IV PRN (07:30)
[2019-01-20] MEDS ORDERED: DIALYSIS PATIENT. MC PRN ×2 (07:30)
[2019-01-20] MEDS: IPRATRPIUM/ALBUTEROL 0.5/2.5MG 3 ML NEBU. NEB SCH ×2 (08:15→15:11)
[2019-01-20] MEDS: HYDROmorphone 2 MG TABLET PO PRN ×2 (08:40→13:36)
--- NOTE | 2019-01-20 08:46 | RAD ---
Ultrasound-guided right-sided thoracentesis 01.19.19 Indication: large right pleural effusion Procedure: Informed consent was obtained. A timeout procedure was performed. Sonographic evaluation of the right chest was performed demonstrating moderate pleural effusion. The right posterior chest was prepped and draped in sterile fashion. 1% lidocaine without epinephrine was administered for local anesthesia. Real-time ultrasonographic guidance was used in passing a 5 Sami Yueh catheter into the right pleural space. 2.1L of serosanguineous pleural fluid was removed. Samples of fluid were sent to the lab for further evaluation per ordering physician request. The catheter was removed and pressure held to achieve hemostasis. A sterile dressing was applied. No immediate complications were identified. The patient tolerated the procedure well. Impression: Right sided ultrasound-guided thoracentesis
--- NOTE | 2019-01-20 10:11 | PDOC ---
PROGRESS NOTES Subjective Subjective going to dialysis this morning Objective Objective Vital Signs Date Time Temp Pulse Resp B/P (MAP) Pulse Ox O2 Delivery O2 Flow Rate FiO2 01/20/19 08:40 16 94 Room Air 01/20/19 07:00 97.7 53 135/89 (104) 97.7 01/19/19 21:28 2.0 Intake and Output 01/20/19 06:59 Intake Total 100 ml Output Total 2100 ml Balance -2000 ml Intake Oral 100 ml Drainage Total 2100 ml Physical Exam Abdomen: Soft, Other (pd cath in place) Heart: Regular rate Extremities: No cyanosis, Other (trace LE edema) General: Alert, Oriented X3, Cooperative, No acute distress HEENT: Atraumatic Lungs: Normal air movement MUSCULOSKELETAL: Osteoarthritic changes both hands Neuro: Normal speech, Sensation intact Psych/Mental Status: Mental status NL, Mood NL Skin: No breakdown, No significant lesion Diagnosis Problem List Problems Medical Problems: (1) ESRD (end stage renal disease) on dialysis Status: Chronic (2) Nausea & vomiting Status: Acute (3) Right upper lobe pneumonia Status: Acute Assessment Assessment Problems Medical Problems: (1) ESRD (end stage renal disease) on dialysis Status: Chronic (2) Nausea & vomiting Status: Acute (3) Right upper lobe pneumonia Status: Acute FINAL IMPRESSION: 1. Recurrent pleural effusion. 2. End-stage renal disease, on hemodialysis. 3. Hypertension. 4.PD catheter present PLAN: D/C home today after dialysis Pleural drainage 2.1L drained yesterday 01/18/19 PROCEDURES: 1. Removal of PD catheter. 2. Primary repair of umbilical and supraumbilical hernia. out pt dialysis . ,pt refused PT/OT and SNU Plan Plan of Care Problems Medical Problems: (1) ESRD (end stage renal disease) on dialysis Status: Chronic (2) Nausea & vomiting Status: Acute (3) Right upper lobe pneumonia Status: Acute Comment Review of Relevant I have reviewed the following items benjamin (where applicable) has been applied. Labs Laboratory Tests Test 01/19/19 13:15 Sodium Level 137 mmol/L (136-145) Potassium Level 4.2 mmol/L (3.5-5.1) Chloride Level 100 mmol/L (98-107) Carbon Dioxide Level 33 mmol/L (21-32) Anion Gap 4 (6-14) Blood Urea Nitrogen 29 mg/dL (8-26) Creatinine 4.5 mg/dL (0.7-1.3) Estimated GFR (Cockcroft-Gault) 16.6 BUN/Creatinine Ratio 6 (6-20) Glucose Level 124 mg/dL (70-99) Calcium Level 8.3 mg/dL (8.5-10.1) Magnesium Level 2.0 mg/dL (1.8-2.4) Total Bilirubin 0.4 mg/dL (0.2-1.0) Aspartate Amino Transf (AST/SGOT) 17 U/L (15-37) Alanine Aminotransferase (ALT/SGPT) 16 U/L (16-63) Alkaline Phosphatase 96 U/L (46-116) Total Protein 5.4 g/dL (6.4-8.2) Albumin 2.6 g/dL (3.4-5.0) Albumin/Globulin Ratio 0.9 (1.0-1.7) Microbiology 01/12/19 Blood Culture - Final, Complete NO GROWTH AFTER 5 DAYS Medications Current Medications Albumin Human 200 ml @ 200 mls/hr 1X PRN PRN IV Hypotension; Start 01/20/19 at 07:30; Stop 01/20/19 at 13:29 Info (PHARMACY MONITORING -- do not chart) 1 each PRN DAILY PRN MC SEE COMMENTS; Start 01/20/19 at 07:30 Info (PHARMACY MONITORING -- do not chart) 1 each PRN DAILY PRN MC SEE COMMENTS; Start 01/20/19 at 07:30; Status UNV Sodium Chloride 1,000 ml @ 400 mls/hr Q2H30M PRN IV PATENCY; Start 01/20/19 at 07:23; Stop 01/20/19 at 19:22 Sodium Chloride 1,000 ml @ 1,000 mls/hr Q1H PRN IV hypotension; Start 01/20/19 at 07:23; Stop 01/20/19 at 13:22 Sodium Chloride (Normal Saline Flush) 10 ml 1X PRN PRN IV AP catheter pack; Start 01/20/19 at 07:30; Stop 01/21/19 at 07:29 Sodium Chloride (Normal Saline Flush) 10 ml 1X PRN PRN IV SURFACE PLATE INSPECTOR catheter pack; Start 01/20/19 at 07:30; Stop 01/21/19 at 07:29 Vitals/I & O Vital Sign - Last 24 Hours 01/19/19 01/19/19 01/19/19 01/19/19 10:20 11:00 11:28 12:55 Temp 98.4 98.4 Pulse 57 B/P (MAP) 124/82 (96) Pulse Ox 95 97 95 98 O2 Delivery Nasal Cannula Nasal Cannula Nasal Cannula Nasal Cannula O2 Flow Rate 2.0 2.0 2.0 2.0 01/19/19 01/19/19 01/19/19 01/19/19 13:55 15:00 15:39 17:31 Temp 98.3 98.3 Pulse 54 63 B/P (MAP) 110/66 (81) 110/66 Pulse Ox 95 92 95 O2 Delivery Nasal Cannula Nasal Cannula Nasal Cannula O2 Flow Rate 2.0 2.0 2.0 01/19/19 01/19/19 01/19/19 01/19/19 19:07 19:20 20:00 20:28 Temp 98.0 98.0 Pulse 65 Resp 18 B/P (MAP) 104/67 (79) Pulse Ox 92 92 92 O2 Delivery Room Air Room Air Room Air Room Air 01/19/19 01/19/19 01/19/19 01/19/19 21:15 21:15 21:28 23:03 Temp 98.6 98.6 Pulse 65 65 72 Resp 20 B/P (MAP) 104/67 104/67 130/79 (96) Pulse Ox 92 95 O2 Delivery Nasal Cannula Room Air O2 Flow Rate 2.0 01/20/19 01/20/19 01/20/19 01/20/19 02:41 07:00 08:00 08:16 Temp 98.3 97.7 98.3 97.7 Pulse 49 53 Resp 16 16 B/P (MAP) 120/74 (89) 135/89 (104) Pulse Ox 96 96 94 O2 Delivery Room Air Room Air Room Air Room Air 01/20/19 08:40 Resp 16 Pulse Ox 94 O2 Delivery Room Air Intake and Output 01/19/19 01/19/19 01/20/19 14:59 22:59 06:59 Intake Total 100 ml Output Total 2100 ml Balance -2100 ml 100 ml ROSALINO SERRANO MD Jan 20, 2019 10:11
--- NOTE | 2019-01-20 10:47 | PDOC ---
PULMONARY PROGRESS NOTES Subjective pt with abd pain not more soa Vitals Vital Signs Date Time Temp Pulse Resp B/P (MAP) Pulse Ox O2 Delivery O2 Flow Rate FiO2 01/20/19 08:40 16 94 Room Air 01/20/19 07:00 97.7 53 135/89 (104) 97.7 01/19/19 21:28 2.0 ROS: No Nausea, No Chest Pain, No Increase Cough General: Alert Lungs: Clear Cardiovascular: S1, S2 Abdomen: Soft, Other (PD cath in place ) Neuro Exam: Alert, Oriented, Normal Speech Extremities: No Edema Skin: Warm, Dry Labs Laboratory Tests Test 01/19/19 13:15 Sodium Level 137 mmol/L (136-145) Potassium Level 4.2 mmol/L (3.5-5.1) Chloride Level 100 mmol/L (98-107) Carbon Dioxide Level 33 mmol/L (21-32) Anion Gap 4 (6-14) Blood Urea Nitrogen 29 mg/dL (8-26) Creatinine 4.5 mg/dL (0.7-1.3) Estimated GFR (Cockcroft-Gault) 16.6 BUN/Creatinine Ratio 6 (6-20) Glucose Level 124 mg/dL (70-99) Calcium Level 8.3 mg/dL (8.5-10.1) Magnesium Level 2.0 mg/dL (1.8-2.4) Total Bilirubin 0.4 mg/dL (0.2-1.0) Aspartate Amino Transf (AST/SGOT) 17 U/L (15-37) Alanine Aminotransferase (ALT/SGPT) 16 U/L (16-63) Alkaline Phosphatase 96 U/L (46-116) Total Protein 5.4 g/dL (6.4-8.2) Albumin 2.6 g/dL (3.4-5.0) Albumin/Globulin Ratio 0.9 (1.0-1.7) Laboratory Tests Test 01/19/19 13:15 Sodium Level 137 mmol/L (136-145) Potassium Level 4.2 mmol/L (3.5-5.1) Chloride Level 100 mmol/L (98-107) Carbon Dioxide Level 33 mmol/L (21-32) Anion Gap 4 (6-14) Blood Urea Nitrogen 29 mg/dL (8-26) Creatinine 4.5 mg/dL (0.7-1.3) Estimated GFR (Cockcroft-Gault) 16.6 BUN/Creatinine Ratio 6 (6-20) Glucose Level 124 mg/dL (70-99) Calcium Level 8.3 mg/dL (8.5-10.1) Magnesium Level 2.0 mg/dL (1.8-2.4) Total Bilirubin 0.4 mg/dL (0.2-1.0) Aspartate Amino Transf (AST/SGOT) 17 U/L (15-37) Alanine Aminotransferase (ALT/SGPT) 16 U/L (16-63) Alkaline Phosphatase 96 U/L (46-116) Total Protein 5.4 g/dL (6.4-8.2) Albumin 2.6 g/dL (3.4-5.0) Albumin/Globulin Ratio 0.9 (1.0-1.7) Medications Active Scripts Medications Dose Route/Sig Max Daily Dose Days Date Category Coreg (Carvedilol) 6.25 Mg Tablet 6.25 Mg PO BIDWMEALS 30 01/03/19 Rx Atorvastatin Calcium 10 Mg Tablet 10 Mg PO QHS 30 12/07/18 Rx Clonidine Hcl 0.2 Mg Tablet 0.2 Mg PO BID 11/29/18 Reported Alprazolam 0.25 Mg Tablet 1 Tab PO PRN DAILY PRN 11/29/18 Reported Cymbalta (Duloxetine Hcl) 30 Mg Capsule. 1 Cap PO DAILY 11/29/18 Reported Hydralazine Hcl 50 Mg Tablet 1 Tab PO BID 11/29/18 Reported Colace (Docusate Sodium) 100 Mg Capsule 100 Mg PO DAILY PRN 10/14/18 Rx Polyethylene Glycol 3350 17 Gm Powd.pack 17 Gm PO DAILY PRN 10/14/18 Rx Lidocaine PATCH (Lidocaine) 1 Each Adh..patch 1 Patch TD DAILY 10/10/18 Rx Proair Hfa (Albuterol Sulfate) 8.5 Gm Hfa.aer.ad 2.5 Mg NEB PRN Q4HRS PRN 10/10/18 Rx Cetirizine Hcl 10 Mg Tablet 10 Mg PO DAILY 30 10/10/18 Rx Oyster Shell 500 Mg + Vit D Tb (Calcium Carbonate/Vitamin D3) 1 Each Tablet 1 Tab PO BIDWMEALS 30 01/31/18 Rx Aspirin Ec (Aspirin) 325 Mg Tablet. 325 Mg PO DAILYWBKFT 30 10/25/17 Rx Impression . 1. Recurrent acute hypoxic respiratory failure, secondary to recurrent right- sided pleural effusion. s/p thoracentesis 01/19 2. Recurrent right-sided pleural effusion s/p thoracentesis 3. End-stage renal disease, on hemodialysis. 4. Hypertension, under poor control. 01/18 PREOPERATIVE DIAGNOSIS: End-stage renal disease with recurrent right pleural effusion, requesting removal of PD catheter. POSTOPERATIVE DIAGNOSES: End-stage renal disease with recurrent right pleural effusion, requesting removal of PD catheter with umbilical and supraumbilical hernias. PROCEDURES: 1. Removal of PD catheter. 2. Primary repair of umbilical and supraumbilical hernia. Plan . continue support will check 6 mw prior to d/c 02 CHICA KEMP MD Jan 20, 2019 10:47
--- NOTE | 2019-01-20 10:59 | PDOC ---
Provider Note Provider Note SURG seen in dialysis c/o sore throat possible home later today f/u in office in two weeks LUZ ELENA HERRERA MD Jan 20, 2019 10:59
[2019-01-20] MEDS ORDERED: BENZOCAINE/MENTHOL LOZENGE. PO PRN (11:00)
[2019-01-20] MEDS ORDERED: PHENOL ORAL SPRAY 177ML BOTTLE. PO PRN (11:00)
--- NOTE | 2019-01-20 12:54 | PDOC ---
SUBJECTIVE ROS seen on HD, no complaints OBJECTIVE Vital Signs Vital Signs Date Time Temp Pulse Resp B/P (MAP) Pulse Ox O2 Delivery O2 Flow Rate FiO2 01/20/19 08:40 16 94 Room Air 01/20/19 07:00 97.7 53 135/89 (104) 97.7 01/19/19 21:28 2.0 I & 0 Intake and Output 01/20/19 06:59 Intake Total 100 ml Output Total 2100 ml Balance -2000 ml Intake Oral 100 ml Drainage Total 2100 ml PHYSICAL EXAM Physical Exam General: No acute distress, HEENT: Mucous membr. moist/pink Lungs: Other (basilar crackles) Heart: Regular rate (SR), Normal S1, Normal S2,3/6 diastolic murmur Abdomen: Soft Extremities: trace LE edema) Skin: No rash Neuro: grossly normal Psych/Mental Status: Mental status NL, Mood NL DIAGNOSIS/ASSESSMENT Assessment & Plan ESRD- MWF Seen on HD, tolerating well, continue as ordered, Dw Drn Dialysis as ordered, UF 3-4 as tolerated Dw n PD cath removed HTN -Continue home antihypertensives, Rt UL Pneumonia Hx of Acute respiratory failure with recurrent large right pleural effusion. S/P recurrent thoracentesis Acute on chronic diastolic CHF: likely secondary to uncontrolled HTN Chronic Noncompliance COMMENT/RELEVANT DATA Meds Current Medications Medications (Trade) Dose Ordered Sig/Sascha Start Time Stop Time Status Last Admin Dose Admin Acetaminophen (Tylenol) 500 mg 1X PRN PRN 01/13/19 13:30 01/14/19 13:29 DC 01/14/19 10:51 500 MG Acetaminophen/ Hydrocodone Bitart (Lortab 5/325) 1 tab PRN Q6HRS PRN 01/13/19 23:15 01/19/19 12:55 1 TAB Albumin Human 200 ml @ 200 mls/hr 1X PRN PRN 01/20/19 07:30 01/20/19 13:29 Albuterol Sulfate (Ventolin Neb Soln) 2.5 mg PRN Q4HRS PRN 01/13/19 09:15 Albuterol/ Ipratropium (Duoneb) 3 ml RTQID 01/14/19 08:30 01/20/19 08:15 3 ML Alprazolam (Xanax) 0.25 mg PRN DAILY PRN 01/13/19 09:15 01/19/19 21:15 0.25 MG Amlodipine Besylate (Norvasc) 10 mg DAILY 01/15/19 10:00 01/19/19 09:12 10 MG Aspirin (Ecotrin) 325 mg DAILYWBKFT 01/13/19 10:00 01/19/19 09:12 325 MG Atorvastatin Calcium (Lipitor) 10 mg QHS 01/13/19 21:00 01/19/19 21:15 10 MG Bupivacaine HCl/ Epinephrine Bitart (Sensorcain-Epi 0.5%-1:638705 Mpf) 30 ml 1X ONCE 01/18/19 10:15 01/18/19 10:16 Cancel Bupivacaine HCl/ Epinephrine Bitart (Sensorcaine-Epi 0.25%-1:023228 Mpf) 30 ml 1X ONCE 01/18/19 11:15 01/18/19 11:16 DC 01/18/19 10:59 10 ML Calcium/Vitamin D (Oscal D 500mg/ 200uts) 1 tab BIDWMEALS 01/13/19 10:00 01/19/19 17:30 1 TAB Carvedilol (Coreg) 6.25 mg BIDWMEALS 01/13/19 10:00 01/19/19 17:31 6.25 MG Cefazolin Sodium (Ancef) 1 gm STK-MED ONCE 01/18/19 11:07 01/18/19 11:07 DC Cefazolin Sodium/ Dextrose 50 ml @ 100 mls/hr 1X ONCE 01/18/19 11:30 01/18/19 11:59 DC 01/18/19 10:55 100 MLS/HR Ceftriaxone Sodium (Rocephin) 1 gm 1X ONCE 01/12/19 18:00 01/12/19 18:01 DC 01/12/19 18:13 1 GM Cetirizine HCl (ZyrTEC) 10 mg DAILY 01/13/19 10:00 01/19/19 09:10 10 MG Clonidine HCl (Catapres) 0.2 mg BID 01/13/19 10:00 01/19/19 21:15 0.2 MG Dexamethasone Sodium Phosphate (Decadron) 4 mg STK-MED ONCE 01/18/19 10:44 01/18/19 10:45 DC Diphenhydramine HCl (Benadryl) 25 mg 1X PRN PRN 01/13/19 13:30 01/14/19 13:29 DC Docusate Sodium (Colace) 100 mg DAILY PRN 01/13/19 09:15 01/19/19 09:12 100 MG Duloxetine HCl (Cymbalta) 30 mg DAILY 01/13/19 10:00 01/19/19 09:14 30 MG Ephedrine Sulfate (Akovaz) 50 mg STK-MED ONCE 01/18/19 11:26 01/18/19 11:26 DC Fentanyl Citrate (Fentanyl 2ml Vial) 100 mcg STK-MED ONCE 01/18/19 11:14 01/18/19 11:15 DC Glycopyrrolate (Robinul) 1 mg STK-MED ONCE 01/18/19 11:00 01/18/19 11:00 DC Hydralazine HCl (Apresoline Inj) 20 mg STK-MED ONCE 01/18/19 12:05 01/18/19 12:05 DC Hydralazine HCl (Apresoline) 50 mg BID 01/13/19 10:00 01/19/19 21:15 50 MG Hydromorphone HCl (Dilaudid) 0.5 mg PRN Q10MIN PRN 01/18/19 07:00 01/19/19 06:59 DC Info (PHARMACY MONITORING -- do not chart) 1 each PRN DAILY PRN 01/20/19 07:30 Isosorbide Mononitrate (Imdur) 30 mg DAILY 01/13/19 11:00 01/19/19 09:12 30 MG Labetalol HCl (Normodyne Iv Push) 10 mg 1X ONCE 01/12/19 17:15 01/12/19 17:16 DC 01/12/19 17:40 10 MG Levofloxacin/ Dextrose 100 ml @ 100 mls/hr 1X ONCE 01/12/19 18:00 01/12/19 18:59 DC 01/12/19 18:14 100 MLS/HR Lidocaine (Lidoderm) 1 patch DAILY 01/13/19 10:00 Lidocaine HCl (Lidocaine Pf 2% Vial) 5 ml STK-MED ONCE 01/18/19 10:44 01/18/19 10:45 DC Lidocaine HCl (Xylocaine-Mpf 1% 2ml Vial) 2 ml PRN 1X PRN 01/18/19 07:00 01/19/19 06:59 DC Lorazepam (Ativan Inj) 1 mg 1X ONCE 01/12/19 18:15 01/12/19 18:16 DC 01/12/19 18:15 1 MG Miscellaneous (Lidoderm Patch Removal) 1 ea QHS 01/13/19 21:00 01/19/19 21:00 1 EA Ondansetron HCl (Zofran) 4 mg STK-MED ONCE 01/18/19 10:44 01/18/19 10:45 DC Phenol (Chloraseptic) 1 spray PRN Q2HR PRN 01/20/19 11:00 Polyethylene Glycol (miraLAX PACKET) 17 gm DAILY PRN 01/13/19 09:15 01/19/19 09:10 17 GM Prochlorperazine Edisylate (Compazine) 5 mg PACU PRN PRN 01/18/19 07:00 01/19/19 06:59 DC Propofol 20 ml @ As Directed STK-MED ONCE 01/18/19 10:44 01/18/19 10:45 DC Ringer's Solution 1,000 ml @ 30 mls/hr Q24H 01/18/19 07:00 01/18/19 06:30 DC Sevoflurane (Ultane) 60 ml STK-MED ONCE 01/18/19 11:25 01/18/19 11:25 DC Sodium Chloride 1,000 ml @ 400 mls/hr Q2H30M PRN 01/20/19 07:23 01/20/19 19:22 Sodium Chloride (Normal Saline Flush) 10 ml 1X PRN PRN 01/20/19 07:30 01/21/19 07:29 Throat Lozenges (Cepacol Sore Throat Lozenge) 1 ely PRN Q2HRS PRN 01/20/19 11:00 Lab Laboratory Tests Test 01/19/19 13:15 Sodium Level 137 mmol/L (136-145) Potassium Level 4.2 mmol/L (3.5-5.1) Chloride Level 100 mmol/L (98-107) Carbon Dioxide Level 33 mmol/L (21-32) Anion Gap 4 (6-14) Blood Urea Nitrogen 29 mg/dL (8-26) Creatinine 4.5 mg/dL (0.7-1.3) Estimated GFR (Cockcroft-Gault) 16.6 BUN/Creatinine Ratio 6 (6-20) Glucose Level 124 mg/dL (70-99) Calcium Level 8.3 mg/dL (8.5-10.1) Magnesium Level 2.0 mg/dL (1.8-2.4) Total Bilirubin 0.4 mg/dL (0.2-1.0) Aspartate Amino Transf (AST/SGOT) 17 U/L (15-37) Alanine Aminotransferase (ALT/SGPT) 16 U/L (16-63) Alkaline Phosphatase 96 U/L (46-116) Total Protein 5.4 g/dL (6.4-8.2) Albumin 2.6 g/dL (3.4-5.0) Albumin/Globulin Ratio 0.9 (1.0-1.7) Results All relevant outside records, renal labs, imaging studies, telemetry/EKG's were reviewed. MAGDIEL VOGEL MD Jan 20, 2019 12:54
[2019-01-20] MEDS: ASPIRIN ENTERIC COATED 325 MG TABLET.DR. PO SCH (14:02)
[2019-01-20] MEDS: CETIRIZINE HCL 10 MG TABLET. PO SCH (14:02)
[2019-01-20] MEDS: CALCIUM CARB/VIT D3 500/200 TABLET. PO SCH (14:02)
[2019-01-20] MEDS: CARVEDILOL 6.25 MG TABLET. PO SCH (14:02)
[2019-01-20] MEDS: DULoxetine HCL 30 MG CAPSULE.DR PO SCH (14:03)
[2019-01-20] MEDS: cloNIDine HCL 0.2 MG TABLET PO SCH (14:03)
[2019-01-20] MEDS: ISOSORBIDE MONONITRATE ER 30 MG TAB.ER.24H PO SCH (14:03)
[2019-01-20 14:04] VITALS: BP 113/89
[2019-01-20] MEDS: amLODIPine BESYLATE 10 MG TABLET PO SCH (14:04)
--- NOTE | 2019-01-20 15:50 | NUR ---
Patient discharged to home. Discharge instruction given and verbalized understanding. PIV and heart monitor removed. Escorted patient per wheelchair into a 10-10 cab.
--- NOTE | 2019-01-23 10:05 | PDOC ---
Provider Note Provider Note Discharge summary dictated.#[id number]. ROSALINO SERRANO MD Jan 23, 2019 10:05
--- NOTE | 2019-01-23 13:43 | DS ---
DATE OF DISCHARGE: 01/20/2019 REASON FOR ADMISSION TO THE HOSPITAL: Shortness of breath, accelerated hypertension, and recurrent right pleural effusion. PROCEDURES DONE: 1. Thoracocentesis x 2. 2. Hemodialysis. 3. Removal of peritoneal dialysis catheter. 4. Repair of umbilical and supraumbilical hernia. COMPLICATIONS NOTED: None. HOSPITAL COURSE: The patient is a 53-year-old male with history of diastolic heart failure, coronary artery disease without any significant stenosis and the patient had recurrent pleural effusions, was having shortness of breath. The patient used to be on peritoneal dialysis before and it was felt the fluid was going into the right pleural space, so we stopped the peritoneal dialysis. Now, he is on hemodialysis. In spite of that he continued to develop fluid in the right pleura. The patient had thoracocentesis x 2, each time 2 liters were drained. The patient also had a peritoneal dialysis catheter, which was removed. He also had an umbilical and periumbilical hernia repair done. The patient did well. No complications noted. The patient was discharged. Follow up with outpatient dialysis and PCP. FINAL DIAGNOSES: 1. Recurrent right pleural effusion, thoracocentesis x 2. 2. Hemodialysis for end-stage renal disease. 3. Accelerated hypertension. 4. Removal of peritoneal dialysis catheter as well as repair of umbilical and periumbilical hernia. DISPOSITION: Home. The patient refused snf. Follow up with outpatient dialysis and PCP, Dr. Callaway. ROSALINO SERRANO MD DR: RENATO/savannah JOB#: [id number] / [id number] NORRIS Ferreira
== END 2019-01-20 15:57 | disposition home or self-care (01) | DRG 981 ==
LOC: ER 16:43 → 2 SOUTH 19:12
PROVIDERS: ADMIT Internal Medicine; ATTEND Internal Medicine
PROC: 0W993ZZ Drainage of Right Pleural Cavity, Percutaneous Approach (ICD-10-PCS; 2019-01-13)
PROC: 5A1D70Z Performance of Urinary Filtration, Intermittent, Less than 6 Hours Per Day (ICD-10-PCS; 2019-01-13)
PROC: 5A1D70Z Performance of Urinary Filtration, Intermittent, Less than 6 Hours Per Day (ICD-10-PCS; 2019-01-16)
PROC: 5A1D70Z Performance of Urinary Filtration, Intermittent, Less than 6 Hours Per Day (ICD-10-PCS; 2019-01-18)
PROC: 0WPG03Z Removal of Infusion Device from Peritoneal Cavity, Open Approach (ICD-10-PCS; principal; 2019-01-19)
PROC: 0WQF0ZZ Repair Abdominal Wall, Open Approach (ICD-10-PCS; 2019-01-19)
PROC: 0WJF4ZZ Inspection of Abdominal Wall, Percutaneous Endoscopic Approach (ICD-10-PCS; 2019-01-19)
PROC: 0W993ZZ Drainage of Right Pleural Cavity, Percutaneous Approach (ICD-10-PCS; 2019-01-19)
PROC: 5A1D70Z Performance of Urinary Filtration, Intermittent, Less than 6 Hours Per Day (ICD-10-PCS; 2019-01-20)
DX: I13.2 Hypertensive heart and chronic kidney disease with heart failure and with stage 5 chronic kidney disease, or end stage renal disease (principal); J96.01 Acute respiratory failure with hypoxia; I50.33 Acute on chronic diastolic (congestive) heart failure; N18.6 End stage renal disease; J18.1 Lobar pneumonia, unspecified organism; J90 Pleural effusion, not elsewhere classified; I16.1 Hypertensive emergency; R18.8 Other ascites; K42.9 Umbilical hernia without obstruction or gangrene; D64.9 Anemia, unspecified; M19.90 Unspecified osteoarthritis, unspecified site; F41.9 Anxiety disorder, unspecified; I25.10 Atherosclerotic heart disease of native coronary artery without angina pectoris; J45.909 Unspecified asthma, uncomplicated; Z82.3 Family history of stroke; Z82.49 Family history of ischemic heart disease and other diseases of the circulatory system; Z86.73 Personal history of transient ischemic attack (TIA), and cerebral infarction without residual deficits; Z91.14 Patient's other noncompliance with medication regimen; Z91.19 Patient's noncompliance with other medical treatment and regimen; Z99.2 Dependence on renal dialysis
CPT/HCPCS: 32555; 36415; 71045; 71046; 80048; 80053; 82553; 83605; 83735; 83880; 84145; 84443; 84484; 85025; 85610; 87040; 87641; 93005; 94640; 94660; 94760; A7015; J0360; J0690; J0696; J1100; J1956; J2001; J2060; J2405; J2704; J3010; J3490; J7030; J7620; G0378

== ENCOUNTER 2019-01-29 21:51 | Inpatient (IN) | payer OTHER ==
[~2019-01-29] VITALS: Ht 172.7 cm; Wt 57.7 kg
[~2019-01-29 21:51] MED LIST changes: +HYDR2TAB31 PO; +ISOS30TA4 PO
[2019-01-29] MEDS ORDERED: fentaNYL PF VIAL 100 MCG/2 ML VIAL IVP ONE (22:15)
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
[2019-01-29 22:38] LABS: BASO % 0 % (0-3); EOS # 0.4 x10^3/uL (0.0-0.7); EOS % 6 % (0-3); HEMATOCRIT 35.8 % (39.0-53.0); HEMOGLOBIN 11.8 g/dL (13.0-17.5); LYMPH # 0.8 x10^3/uL (1.0-4.8); LYMPH % 14 % (24-48); MEAN CORPUSCULAR HEMOGLOBIN 29 pg (25-35); MEAN CORPUSCULAR HGB CONC 33 g/dL (31-37); MEAN CORPUSCULAR VOLUME 86 fL (79-100); MONO # 0.5 x10^3/uL (0.0-1.1); MONO % 9 % (0-9); NEUT # 3.9 x10^3/uL (1.8-7.7); NEUT % 71 % (31-73); PLATELET COUNT 189 x10^3/uL (140-400); RED BLOOD COUNT 4.15 x10^6/uL (4.30-5.70); RED CELL DISTRIBUTION WIDTH 15.8 % (11.5-14.5); WHITE BLOOD COUNT 5.5 x10^3/uL (4.0-11.0)
[2019-01-29 22:46] LABS: CALCIUM 8.8 mg/dL (8.5-10.1); CREATININE 6.7 mg/dL (0.7-1.3); GFR 10.5; POTASSIUM 4.8 mmol/L (3.5-5.1)
[2019-01-29 22:47] LABS: PROTHROMBIN TIME PATIENT 14.2 SEC (11.7-14.0)
--- NOTE | 2019-01-29 22:49 | RAD ---
RS Compliance Statement: One or more of the following individualized dose reduction techniques were utilized for this examination: 1. Automated exposure control 2. Adjustment of the mA and/or kV according to patient size 3. Use of iterative reconstruction technique CT head without contrast 01/29/2019 10:27 PM INDICATION: Dizziness COMPARISON: CT head 11/17/2018 TECHNIQUE: Multiple axial CT images of the head were obtained from skull base through the vertex without intravenous contrast. FINDINGS: Head: Mild to moderate ventriculomegaly without transependymal flow. Remote ischemic changes are identified in the left parietal lobe. Low-attenuation in the periventricular white matter is suggestive of chronic small vessel ischemic changes. There is no hydrocephalus. Bliss-white matter differentiation is normal. There is no acute intracranial hemorrhage. There is no mass, mass effect or midline shift. Posterior fossa is normal in appearance. Small retrocerebellar cyst is present. Visualized portions of the orbits are normal. Paranasal sinuses are well aerated. Mastoid air cells are well aerated. Scalp and calvaria are normal. IMPRESSION: No acute intracranial hemorrhage. Suspect remote ischemic changes involving the left parietal lobe. Low-attenuation in the periventricular white matter is suggestive of chronic small vessel ischemic changes. Mild to moderate ventriculomegaly, out of proportion to sulcal volume loss. Consideration may be given for normal pressure hydrocephalus. Electronically signed by: Payton Bernabe MD (01/29/2019 10:46 PM) [facility]
[2019-01-29 22:52] LABS: ALBUMIN 3.3 g/dL (3.4-5.0); ALBUMIN/GLOBULIN RATIO 0.8 (1.0-1.7); MAGNESIUM 2.4 mg/dL (1.8-2.4); TOTAL BILIRUBIN 0.9 mg/dL (0.2-1.0); TOTAL PROTEIN 7.2 g/dL (6.4-8.2)
--- NOTE | 2019-01-29 23:22 | RAD ---
PQRS Compliance statement: One or more of the following individualized dose reduction techniques were utilized for this examination: 1. Automated exposure control. 2. Adjustment of the mA and/or kV according to patient size. 3. Use of iterative reconstruction technique. Indication:Dizziness. TECHNIQUE: CT abdomen and pelvis without IV contrast with multiplanar reformats. COMPARISON: 11/21/2018 FINDINGS: Limited evaluation of solid abdominal and pelvic organs due to lack of IV contrast. Heart is normal in size. Large right pleural effusion is seen with consolidation of the adjacent lung parenchyma. Left lung base is grossly clear. Noncontrast appearance of the liver, spleen, gallbladder, pancreas, adrenals within normal limits. Bilateral atrophic kidneys without hydronephrosis or nephrolithiasis. Small amount of ascites. No bowel obstruction. The prostate and seminal vesicles show no large mass. Urinary bladder demonstrates no radiopaque stone. No pneumoperitoneum. Midline ventral abdominal wall surgical defect noted. 4.5 x 3.1 cm masslike enlargement in the left rectus abdominis musculature. No suspicious bony lesion. IMPRESSION: Limited evaluation of solid abdominal and pelvic organs due to lack of IV contrast. 1. Stable large right pleural effusion with adjacent consolidation of the lung parenchyma most likely secondary to passive atelectasis. 2. Stable small ascites. 3. Masslike enlargement of the left rectus abdominis musculature most likely secondary to a hematoma. Electronically signed by: Mitchell Rizvi DO (01/29/2019 11:19 PM) [facility]
[2019-01-29] MEDS ORDERED: hydrALAZINE 20 MG/ML VIAL. IVP ONE (23:45)
[2019-01-30] VITALS (10 sets, daily range): BP systolic 125–231; BP diastolic 81–143
[2019-01-30 00:22] LABS: BILIRUBIN,URINE NEGATIVE (NEG); CLARITY,URINE CLEAR; COLOR,URINE YELLOW; NITRITE,URINE NEGATIVE (NEG); PH,URINE 7.5; PROTEIN,URINE 100 mg/dL (NEG-TRACE); UROBILINOGEN,URINE 0.2 mg/dL (0.2 mg/dL)
[2019-01-30 00:27] LABS: BACTERIA,URINE 0 /HPF (0-FEW); SQUAMOUS EPITHELIAL CELL,UR FEW /LPF; WBC,URINE OCC /HPF (0-4)
[2019-01-30 00:29] LABS: BARBITURATES NEG (NEG); BENZODIAZEPINES NEG (NEG); CANNABINOIDS NEG (NEG); COCAINE NEG (NEG); METHADONE NEG (NEG); OPIATES POS (NEG); PHENCYCLIDINE NEG (NEG)
[2019-01-30 00:30] LABS: AMPHETAMINE/METHAMPHETAMINE NEG (NEG)
[2019-01-30] MEDS ORDERED: hydrALAZINE 20 MG/ML VIAL. IVP ONE (07:15)
[2019-01-30] MEDS ORDERED: IPRATRPIUM/ALBUTEROL 0.5/2.5MG 3 ML NEBU. NEB ONE (08:30)
[2019-01-30] MEDS ORDERED: HYDR-2761 PO (08:47)
[2019-01-30] MEDS: CARVEDILOL 6.25 MG TABLET. PO SCH ×2 (09:03→17:51)
[2019-01-30] MEDS: cloNIDine HCL 0.2 MG TABLET PO SCH ×2 (09:04→19:56)
--- NOTE | 2019-01-30 09:18 | EKG ---
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
[2019-01-30] MEDS ORDERED: IV NORMAL SALINE 1000ML BAG 1,000 ML IV PRN ×2 (09:36)
[2019-01-30] MEDS ORDERED: diphenhydrAMINE 50 MG/ML VIAL IV PRN ×2 (09:45)
[2019-01-30] MEDS ORDERED: ACETAMINOPHEN 500 MG TABLET PO PRN (09:45)
[2019-01-30] MEDS ORDERED: DIALYSIS PATIENT. MC PRN (09:45)
[2019-01-30] MEDS ORDERED: ALBUMIN HUMAN 25% 200 ML IV PRN (09:45)
[2019-01-30] MEDS ORDERED: 0.9 % SODIUM CHLORIDE 10 ML DISP.SYRIN. IV PRN ×2 (09:45)
[2019-01-30] MEDS ORDERED: ALBUTEROL SULFATE 2.5 MG/3 ML NEBU. NEB PRN (10:00)
[2019-01-30] MEDS ORDERED: POLYETHYLENE GLYCOL 3350 17 GM PACKET. PO PRN (10:00)
[2019-01-30] MEDS ORDERED: DOCUSATE SODIUM 100 MG CAPSULE. PO PRN (10:00)
[2019-01-30] MEDS ORDERED: ALPRAZolam 0.25 MG TABLET PO PRN (10:00)
--- NOTE | 2019-01-30 10:02 | PDOC ---
Provider Note Provider Note Pt seen.H&P to be dictated.[id number]. ROSALINO SERRANO MD Jan 30, 2019 10:02
[2019-01-30] MEDS ORDERED: LIDOCAINE 1% PF 2 ML VIAL. ONE ×2 (10:29→11:00)
[2019-01-30] MEDS ORDERED: ASPIRIN ENTERIC COATED 325 MG TABLET.DR. PO SCH (11:00)
--- NOTE | 2019-01-30 11:12 | PDOC2 ---
BERTIN MACK [employer] 01/30/19 1112: CONSULT Date of Consult Date of Consult DATE: 01/30/19 TIME: 11:06 Reason for Consult Reason for Consult: hematoma Referring Physician Referring Physician: Dr Rowan Identification/Chief Complaint Chief Complaint abd pain Source Source: Chart review, Patient History of Present Illness Reason for Visit: Admitted with abdominal pain, lightheadedness. Underwent PD cath removal and umbilical hernia repair 01/[address] Herrera--CT last night with findings of rectus sheath hematoma Seen during dialysis Denies n/v Past Medical History Cardiovascular: HTN Pulmonary: Asthma CENTRAL NERVOUS SYSTEM: CVA, Periperal neuropathy GI: No pertinent hx Heme/Onc: Anemia NOS Hepatobiliary: No pertinent hx Psych: Anxiety Infectious disease: No pertinent hx Renal/: Chronic renal failure Endocrine: No pertinent hx, Hyperparathyroidism Past Surgical History Past Surgical History: Hernia Repair, Other (pd cath removal ) Family History Family History: Heart Disease, Hypertension, Stroke Social History ALCOHOL: none Drugs: None Lives: with Family Current Problem List Problem List Problems Medical Problems: (1) Dizziness Status: Acute (2) ESRD (end stage renal disease) on dialysis Status: Chronic (3) Traumatic rectus hematoma Status: Acute Current Medications Current Medications Current Medications Fentanyl Citrate (Fentanyl 2ml Vial) 50 mcg 1X ONCE IVP Last administered on 01/29/19at 22:22; Start 01/29/19 at 22:15; Stop 01/29/19 at 22:16; Status DC Hydralazine HCl (Apresoline Inj) 10 mg 1X ONCE IVP Last administered on 01/29/19at 23:49; Start 01/29/19 at 23:45; Stop 01/29/19 at 23:46; Status DC Hydralazine HCl (Apresoline Inj) 10 mg 1X ONCE IVP Last administered on 01/30/19at 07:57; Start 01/30/19 at 07:15; Stop 01/30/19 at 07:16; Status DC Albuterol/ Ipratropium (Duoneb) 3 ml 1X ONCE NEB Last administered on 01/30/19at 08:38; Start 01/30/19 at 08:30; Stop 01/30/19 at 08:35; Status DC Carvedilol (Coreg) 6.25 mg BIDWMEALS PO Last administered on 01/30/19at 09:03; Start 01/30/19 at 09:00 Clonidine HCl (Catapres) 0.2 mg BID PO Last administered on 01/30/19at 09:04; Start 01/30/19 at 09:00 Hydralazine HCl (Apresoline) 50 mg BID PO Last administered on 01/30/19at 09:03; Start 01/30/19 at 09:00 Sodium Chloride 1,000 ml @ 1,000 mls/hr Q1H PRN IV hypotension; Start 01/30/19 at 09:36; Stop 01/30/19 at 15:35 Albumin Human 200 ml @ 200 mls/hr 1X PRN PRN IV Hypotension; Start 01/30/19 at 09:45; Stop 01/30/19 at 15:44 Acetaminophen (Tylenol) 500 mg 1X PRN PRN PO MILD PAIN / TEMP; Start 01/30/19 at 09:45; Stop 01/31/19 at 09:44 Diphenhydramine HCl (Benadryl) 25 mg 1X PRN PRN IV ITCHING; Start 01/30/19 at 09:45; Stop 01/31/19 at 09:44 Diphenhydramine HCl (Benadryl) 25 mg 1X PRN PRN IV ITCHING; Start 01/30/19 at 09:45; Stop 01/31/19 at 09:44 Sodium Chloride (Normal Saline Flush) 10 ml 1X PRN PRN IV AP catheter pack; Start 01/30/19 at 09:45; Stop 01/31/19 at 09:44 Sodium Chloride (Normal Saline Flush) 10 ml 1X PRN PRN IV AD[employer] catheter pack; Start 01/30/19 at 09:45; Stop 01/31/19 at 09:44 Sodium Chloride 1,000 ml @ 400 mls/hr Q2H30M PRN IV PATENCY; Start 01/30/19 at 09:36; Stop 01/30/19 at 21:35 Info (PHARMACY MONITORING -- do not chart) 1 each PRN DAILY PRN MC SEE COMMENTS; Start 01/30/19 at 09:45 Albuterol Sulfate (Ventolin Neb Soln) 2.5 mg PRN Q4HRS PRN NEB SHORTNESS OF BREATH; Start 01/30/19 at 10:00 Alprazolam (Xanax) 0.25 mg PRN DAILY PRN PO ANXIETY / AGITATION; Start 01/30/19 at 10:00 Amlodipine Besylate (Norvasc) 10 mg DAILY PO ; Start 01/30/19 at 11:00 Aspirin (Ecotrin) 325 mg DAILYWBKFT PO ; Start 01/30/19 at 11:00; Stop 01/30/19 at 10:35; Status DC Atorvastatin Calcium (Lipitor) 10 mg QHS PO ; Start 01/30/19 at 21:00 Calcium/Vitamin D (Oscal D 500mg/ 200uts) 1 tab BIDWMEALS PO ; Start 01/30/19 at 12:00 Cetirizine HCl (ZyrTEC) 10 mg DAILY PO ; Start 01/30/19 at 11:00 Docusate Sodium (Colace) 100 mg PRN DAILY PRN PO CONSTIPATION (1st Choice); Start 01/30/19 at 10:00 Duloxetine HCl (Cymbalta) 30 mg DAILY PO ; Start 01/30/19 at 11:00 Acetaminophen/ Hydrocodone Bitart (Lortab 5/325) 1 tab PRN Q6HRS PRN PO MODERATE PAIN; Start 01/30/19 at 10:00 Hydromorphone HCl (Dilaudid) 1 mg PRN Q4HRS PRN PO SEVERE PAIN; Start 01/30/19 at 10:00 Isosorbide Mononitrate (Imdur) 30 mg DAILY PO ; Start 01/30/19 at 11:00 Polyethylene Glycol (miraLAX PACKET) 17 gm PRN DAILY PRN PO CONSTIPATION (2nd Choice); Start 01/30/19 at 10:00 Lidocaine HCl (Xylocaine-Mpf 1% 2ml Vial) 2 ml STK-MED ONCE .ROUTE ; Start 01/30/19 at 10:29; Stop 01/30/19 at 10:30; Status DC Active Scripts Active Isosorbide Mononitrate Er (Isosorbide Mononitrate) 30 Mg Tab.er.24h 30 Mg PO DAILY 30 Days Amlodipine Besylate 10 Mg Tablet 10 Mg PO DAILY 30 Days Dilaudid (Hydromorphone Hcl) 2 Mg Tablet 1 Mg PO PRN Q4HRS PRN 7 Days Coreg (Carvedilol) 6.25 Mg Tablet 6.25 Mg PO BIDWMEALS 30 Days Atorvastatin Calcium 10 Mg Tablet 10 Mg PO QHS 30 Days Colace (Docusate Sodium) 100 Mg Capsule 100 Mg PO DAILY PRN Polyethylene Glycol 3350 17 Gm Powd.pack 17 Gm PO DAILY PRN Proair Hfa (Albuterol Sulfate) 8.5 Gm Hfa.aer.ad 2.5 Mg NEB PRN Q4HRS PRN 30 Days Cetirizine Hcl 10 Mg Tablet 10 Mg PO DAILY 30 Days Oyster Shell 500 Mg + Vit D Tb (Calcium Carbonate/Vitamin D3) 1 Each Tablet 1 Tab PO BIDWMEALS 30 Days Aspirin Ec (Aspirin) 325 Mg Tablet. 325 Mg PO DAILYWBKFT 30 Days Reported Hydrocodone-Apap 5-325 (Hydrocodone Bit/Acetaminophen) 1 Tab Tablet 1 Tab PO PRN Q6HRS PRN Clonidine Hcl 0.2 Mg Tablet 0.2 Mg PO BID Alprazolam 0.25 Mg Tablet 1 Tab PO PRN DAILY PRN Cymbalta (Duloxetine Hcl) 30 Mg Capsule. 1 Cap PO DAILY Hydralazine Hcl 50 Mg Tablet 1 Tab PO BID Allergies Allergies: Coded Allergies: lisinopril (Verified Allergy, Severe, Swelling, 01/18/19) codeine (Verified Allergy, Intermediate, itching, 01/18/19) TAKES LORTAB AT HOME IN THE PAST morphine (Verified Allergy, Intermediate, DOES NOT WORK, 01/19/19) Patient states this medication does not work. He denies it being a true allergy. ROS General: YES: Fatigue; No: Chills PSYCHOLOGICAL ROS: No: Anxiety, Depression Eyes: No Blurry vision, No Double vision HEENT: No: Heacaches, Sore Throat Hematological and Lymphatic: YES: Bleeding Problems; No: Blood Clots Respiratory: YES: SOB with excertion; No: Cough Gastrointestinal: Yes Other (see hpi) Genitourinary: No Dysuria, No Hematuria Musculoskeletal: Yes Muscular Weakness; No Joint Pain Neurological: No Impaired Coord/balance, No Numbness/Tingling Skin: No Pruritus, No Rash Physical Exam General: Alert, Oriented X3, Cooperative, No acute distress HEENT: PERRLA, Mucous membr. moist/pink Lungs: Clear to auscultation, Normal air movement Heart: Regular rate, Normal S1, Normal S2 Abdomen: Soft, Other (notable ecchymosis, ttp lower abdomen, shirin in place, firmness over staple to umbo ) Skin: No rashes, No breakdown Neuro: Normal speech, Sensation intact Psych/Mental Status: Mental status NL, Mood NL MUSCULOSKELETAL: No deformity, No swelling Vitals VITALS Vital Signs Date Time Temp Pulse Resp B/P (MAP) Pulse Ox O2 Delivery O2 Flow Rate FiO2 01/30/19 09:50 171/109 (129) 01/30/19 09:50 73 01/30/19 08:39 96 Nasal Cannula 2.0 01/30/19 08:00 97.0 97.0 01/30/19 06:00 40 Labs Labs Laboratory Tests Test 01/29/19 22:30 01/30/19 00:05 White Blood Count 5.5 x10^3/uL (4.0-11.0) Red Blood Count 4.15 x10^6/uL (4.30-5.70) Hemoglobin 11.8 g/dL (13.0-17.5) Hematocrit 35.8 % (39.0-53.0) Mean Corpuscular Volume 86 fL (79-100) Mean Corpuscular Hemoglobin 29 pg (25-35) Mean Corpuscular Hemoglobin Concent 33 g/dL (31-37) Red Cell Distribution Width 15.8 % (11.5-14.5) Platelet Count 189 x10^3/uL (140-400) Neutrophils (%) (Auto) 71 % (31-73) Lymphocytes (%) (Auto) 14 % (24-48) Monocytes (%) (Auto) 9 % (0-9) Eosinophils (%) (Auto) 6 % (0-3) Basophils (%) (Auto) 0 % (0-3) Neutrophils # (Auto) 3.9 x10^3/uL (1.8-7.7) Lymphocytes # (Auto) 0.8 x10^3/uL (1.0-4.8) Monocytes # (Auto) 0.5 x10^3/uL (0.0-1.1) Eosinophils # (Auto) 0.4 x10^3/uL (0.0-0.7) Basophils # (Auto) 0.0 x10^3/uL (0.0-0.2) Prothrombin Time 14.2 SEC (11.7-14.0) Prothromb Time International Ratio 1.1 (0.8-1.1) Sodium Level 145 mmol/L (136-145) Potassium Level 4.8 mmol/L (3.5-5.1) Chloride Level 107 mmol/L (98-107) Carbon Dioxide Level 25 mmol/L (21-32) Anion Gap 13 (6-14) Blood Urea Nitrogen 63 mg/dL (8-26) Creatinine 6.7 mg/dL (0.7-1.3) Estimated GFR (Cockcroft-Gault) 10.5 BUN/Creatinine Ratio 9 (6-20) Glucose Level 93 mg/dL (70-99) Calcium Level 8.8 mg/dL (8.5-10.1) Magnesium Level 2.4 mg/dL (1.8-2.4) Total Bilirubin 0.9 mg/dL (0.2-1.0) Aspartate Amino Transf (AST/SGOT) 20 U/L (15-37) Alanine Aminotransferase (ALT/SGPT) 22 U/L (16-63) Alkaline Phosphatase 147 U/L (46-116) Creatine Kinase 82 U/L (39-308) Troponin I Quantitative 0.057 ng/mL (0.000-0.055) Total Protein 7.2 g/dL (6.4-8.2) Albumin 3.3 g/dL (3.4-5.0) Albumin/Globulin Ratio 0.8 (1.0-1.7) Lipase 234 U/L (73-393) Urine Collection Type Unknown Urine Color Yellow Urine Clarity Clear Urine pH 7.5 Urine Specific [place] 1.010 Urine Protein 100 mg/dL (NEG-TRACE) Urine Glucose (UA) Negative mg/dL (NEG) Urine Ketones (Stick) Negative mg/dL (NEG) Urine Blood Negative (NEG) Urine Nitrite Negative (NEG) Urine Bilirubin Negative (NEG) Urine Urobilinogen Dipstick 0.2 mg/dL (0.2 mg/dL) Urine Leukocyte Esterase Negative (NEG) Urine RBC 3-5 /HPF (0-2) Urine WBC Occ /HPF (0-4) Urine Squamous Epithelial Cells Few /LPF Urine Bacteria 0 /HPF (0-FEW) Urine Mucus Slight /LPF Urine Opiates Screen Pos (NEG) Urine Methadone Screen Neg (NEG) Urine Barbiturates Neg (NEG) Urine Phencyclidine Screen Neg (NEG) Urine Amphetamine/Methamphetamine Neg (NEG) Urine Benzodiazepines Screen Neg (NEG) Urine Cocaine Screen Neg (NEG) Urine Cannabinoids Screen Neg (NEG) Urine Ethyl Alcohol Neg (NEG) Laboratory Tests Test 01/29/19 22:30 01/30/19 00:05 White Blood Count 5.5 x10^3/uL (4.0-11.0) Red Blood Count 4.15 x10^6/uL (4.30-5.70) Hemoglobin 11.8 g/dL (13.0-17.5) Hematocrit 35.8 % (39.0-53.0) Mean Corpuscular Volume 86 fL (79-100) Mean Corpuscular Hemoglobin 29 pg (25-35) Mean Corpuscular Hemoglobin Concent 33 g/dL (31-37) Red Cell Distribution Width 15.8 % (11.5-14.5) Platelet Count 189 x10^3/uL (140-400) Neutrophils (%) (Auto) 71 % (31-73) Lymphocytes (%) (Auto) 14 % (24-48) Monocytes (%) (Auto) 9 % (0-9) Eosinophils (%) (Auto) 6 % (0-3) Basophils (%) (Auto) 0 % (0-3) Neutrophils # (Auto) 3.9 x10^3/uL (1.8-7.7) Lymphocytes # (Auto) 0.8 x10^3/uL (1.0-4.8) Monocytes # (Auto) 0.5 x10^3/uL (0.0-1.1) Eosinophils # (Auto) 0.4 x10^3/uL (0.0-0.7) Basophils # (Auto) 0.0 x10^3/uL (0.0-0.2) Prothrombin Time 14.2 SEC (11.7-14.0) Prothromb Time International Ratio 1.1 (0.8-1.1) Sodium Level 145 mmol/L (136-145) Potassium Level 4.8 mmol/L (3.5-5.1) Chloride Level 107 mmol/L (98-107) Carbon Dioxide Level 25 mmol/L (21-32) Anion Gap 13 (6-14) Blood Urea Nitrogen 63 mg/dL (8-26) Creatinine 6.7 mg/dL (0.7-1.3) Estimated GFR (Cockcroft-Gault) 10.5 BUN/Creatinine Ratio 9 (6-20) Glucose Level 93 mg/dL (70-99) Calcium Level 8.8 mg/dL (8.5-10.1) Magnesium Level 2.4 mg/dL (1.8-2.4) Total Bilirubin 0.9 mg/dL (0.2-1.0) Aspartate Amino Transf (AST/SGOT) 20 U/L (15-37) Alanine Aminotransferase (ALT/SGPT) 22 U/L (16-63) Alkaline Phosphatase 147 U/L (46-116) Creatine Kinase 82 U/L (39-308) Troponin I Quantitative 0.057 ng/mL (0.000-0.055) Total Protein 7.2 g/dL (6.4-8.2) Albumin 3.3 g/dL (3.4-5.0) Albumin/Globulin Ratio 0.8 (1.0-1.7) Lipase 234 U/L (73-393) Urine Collection Type Unknown Urine Color Yellow Urine Clarity Clear Urine pH 7.5 Urine Specific [place] 1.010 Urine Protein 100 mg/dL (NEG-TRACE) Urine Glucose (UA) Negative mg/dL (NEG) Urine Ketones (Stick) Negative mg/dL (NEG) Urine Blood Negative (NEG) Urine Nitrite Negative (NEG) Urine Bilirubin Negative (NEG) Urine Urobilinogen Dipstick 0.2 mg/dL (0.2 mg/dL) Urine Leukocyte Esterase Negative (NEG) Urine RBC 3-5 /HPF (0-2) Urine WBC Occ /HPF (0-4) Urine Squamous Epithelial Cells Few /LPF Urine Bacteria 0 /HPF (0-FEW) Urine Mucus Slight /LPF Urine Opiates Screen Pos (NEG) Urine Methadone Screen Neg (NEG) Urine Barbiturates Neg (NEG) Urine Phencyclidine Screen Neg (NEG) Urine Amphetamine/Methamphetamine Neg (NEG) Urine Benzodiazepines Screen Neg (NEG) Urine Cocaine Screen Neg (NEG) Urine Cannabinoids Screen Neg (NEG) Urine Ethyl Alcohol Neg (NEG) Assessment/Plan Assessment/Plan rectus sheath hematoma hgb stable hemodynamically stable observation will review with LUZ ELENA Rangel MD 01/30/19 1556: CONSULT Assessment/Plan Assessment/Plan pt seen, interviewed and examined by me agree with above no acute surgical recs will follow with you Thanks for consult BERTIN MACK APRN Jan 30, 2019 11:12 LUZ ELENA HERRERA MD Jan 30, 2019 16:28
--- NOTE | 2019-01-30 11:31 | HP ---
ADMIT DATE: 01/29/2019 LOCATION: 256. REASON FOR ADMISSION TO THE HOSPITAL: Abdominal pain, abdominal wall hematoma, the patient had recent hernia repair. HISTORY OF PRESENT ILLNESS: The patient is a 53-year-old male patient who has a history of end-stage renal disease, on hemodialysis. Prior to that, he was on peritoneal dialysis. On last admission, which was more than a week ago, the patient had a peritoneal dialysis catheter removed and he also had an umbilical hernia, which was repaired. The patient was discharged home, was doing relatively well and he was complaining of pain in the abdominal area and lately it was noticed to be hard and he came to the Emergency Room last night. He had a CT scan of the abdomen and pelvis which shows abdominal wall hematoma. He was also found to have recurrent pleural effusion. The patient has been having this problem for a while, he is getting thoracocentesis every 2 weeks to drain at least 2 L of fluid for the last 2 months. PAST MEDICAL HISTORY: History of hypertension; end-stage renal disease, on hemodialysis; he also has recurrent pleural effusion; and had a cardiac catheterization, no major blockages. PAST SURGICAL HISTORY: He has had a lumbar fusion, AV fistula, corneal transplant, peritoneal dialysis catheter, recurrent thoracocentesis, recent umbilical hernia repair, and he has a dialysis catheter. FAMILY HISTORY: Positive for hypertension, stroke, and heart disease. SOCIAL HISTORY: Denies smoking or alcohol. Lives at home. ALLERGIES: CODEINE, LISINOPRIL, AND MORPHINE. MEDICATIONS AT HOME: Xanax 0.25, aspirin 325 daily, albuterol, ____ atorvastatin 10 mg daily, calcium with vitamin D, Coreg 6.25 twice a day, Zyrtec 10 mg daily, clonidine 0.2 twice a day, Colace 100 mg daily, Cymbalta 30 mg daily, hydralazine 50 mg twice a day, lidocaine patch, and MiraLAX 17 daily. REVIEW OF SYMPTOMS: Complains of abdominal wall pain. Denies any fever. No nausea or vomiting. Rest of the 14 systems was reviewed. PHYSICAL EXAMINATION: GENERAL: The patient is in bed, in pain. VITAL SIGNS: At the time of admission shows temperature 97, pulse 72, respirations 23, blood pressure 206/133, and saturating 97% on room air. HEENT: Head is atraumatic. Pupils equal. Oral cavity: No congestion. NECK: Supple. CHEST: Symmetrical. LUNGS: Diminished breath sounds on the right side. CARDIOVASCULAR: S1, S2. ABDOMEN: He has a firmness in the middle abdomen where the surgery was done. Bowel sounds are present. EXTERNAL GENITALIA: No Zamorano. RECTAL: Deferred. EXTREMITIES: No calf tenderness, no edema. The patient has a dialysis catheter. LABORATORY DATA: Shows a white count of 5.5, hemoglobin 12, platelets 189. INR 1.1. Electrolytes show sodium 145, potassium 4.8, chloride 107, bicarbonate 25, BUN 63, creatinine 6.7, glucose 93. LFTs normal. Urine negative. Drug screen was positive for opiates. The patient takes chronic pain medications. He had a CT head, no acute stroke. CT of the abdomen and pelvis shows hematoma in the abdominal wall and right pleural effusion. FINAL IMPRESSION: 1. Abdominal pain secondary to possible hematoma of the abdominal wall. 2. Recent umbilical hernia repair surgery and removal of peritoneal dialysis catheter. 3. Recurrent right pleural effusion. 4. End-stage renal disease, on hemodialysis. 5. Malignant hypertension. 6. Hypertension. 7. Stable coronary artery disease. PLAN: At this time was to admit to hospital, had a CT scan of the abdomen and pelvis. Pain control, surgical consult, and also dialysis today and maybe we can get thoracocentesis to take the fluid off in the next couple of days. ROSALINO SERRANO MD DR: RENATO/savannah JOB#: [id number] / [id number]
--- NOTE | 2019-01-30 12:56 | NUR ---
SS following for discharge planning. SS reviewed pt chart. Pt is from home and is currently requiring oxygen. Pt has OPHD in the community at [facility], ; fax [phone], Wednesday, Wednesday, and Wednesday at 1545. SS contacted [facility] and was notified that pt has not been showing for dialysis and pt has only shown once or twice since last discharge from [facility] on 01/20/2019. SS will continue to follow for discharge planning.
[2019-01-30] MEDS ORDERED: NITROGLYCERIN SUBLINGUAL 0.4 MG BOTTLE OF 25. SL PRN (13:00)
[2019-01-30] MEDS: HYDROcodone/APAP 5/325MG 1 TAB TABLET PO PRN ×2 (13:08→19:56)
--- NOTE | 2019-01-30 13:42 | EKG ---
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
--- NOTE | 2019-01-30 14:45 | PDOC2 ---
CONSULT Date of Consult Date of Consult DATE: 01/30/19 TIME: 14:24 Reason for Consult Reason for Consult: ESRD Source Source: Chart review History of Present Illness Reason for Visit: Pt is a 53-year-old AA male patient who has a history of end-stage renal disease, on hemodialysis. On last admission, which was more than a week ago, the patient had a peritoneal dialysis catheter removed and he also had an umbilical hernia, which was repaired. The patient was discharged home, was doing relatively well and he was complaining of pain in the abdominal area and lately it was noticed to be hard and he came to the Emergency Room last night. He had a CT scan of the abdomen and pelvis which shows abdominal wall hematoma. He was also found to have recurrent pleural effusion. He is getting thoracentesis every 2 weeks to drain at least 2 L of fluid for the last 2 months. PAST MEDICAL HISTORY: History of hypertension; end-stage renal disease, on hemodialysis; he also has recurrent pleural effusion; and had a cardiac catheterization, no major blockages. PAST SURGICAL HISTORY: He has had a lumbar fusion, AV fistula, corneal transplant, peritoneal dialysis catheter, recurrent thoracocentesis, recent umbilical hernia repair, and he has a dialysis catheter. Past Medical History Cardiovascular: HTN Pulmonary: Asthma CENTRAL NERVOUS SYSTEM: CVA, Periperal neuropathy GI: No pertinent hx Heme/Onc: Anemia NOS Hepatobiliary: No pertinent hx Psych: Anxiety Infectious disease: No pertinent hx Renal/: Chronic renal failure Endocrine: No pertinent hx, Hyperparathyroidism Past Surgical History Past Surgical History: Hernia Repair, Other (pd cath removal ) Family History Family History FAMILY HISTORY: Positive for hypertension, stroke, and heart disease. Family History: Heart Disease, Hypertension, Stroke Social History Social History SOCIAL HISTORY: Denies smoking or alcohol. Lives at home. ALCOHOL: none Drugs: None Lives: with Family Current Problem List Problem List Problems Medical Problems: (1) Dizziness Status: Acute (2) ESRD (end stage renal disease) on dialysis Status: Chronic (3) Traumatic rectus hematoma Status: Acute Current Medications Current Medications Current Medications Fentanyl Citrate (Fentanyl 2ml Vial) 50 mcg 1X ONCE IVP Last administered on 01/29/19at 22:22; Start 01/29/19 at 22:15; Stop 01/29/19 at 22:16; Status DC Hydralazine HCl (Apresoline Inj) 10 mg 1X ONCE IVP Last administered on 01/29/19at 23:49; Start 01/29/19 at 23:45; Stop 01/29/19 at 23:46; Status DC Hydralazine HCl (Apresoline Inj) 10 mg 1X ONCE IVP Last administered on 01/30/19at 07:57; Start 01/30/19 at 07:15; Stop 01/30/19 at 07:16; Status DC Albuterol/ Ipratropium (Duoneb) 3 ml 1X ONCE NEB Last administered on 01/30/19at 08:38; Start 01/30/19 at 08:30; Stop 01/30/19 at 08:35; Status DC Carvedilol (Coreg) 6.25 mg BIDWMEALS PO Last administered on 01/30/19at 09:03; Start 01/30/19 at 09:00 Clonidine HCl (Catapres) 0.2 mg BID PO Last administered on 01/30/19at 09:04; Start 01/30/19 at 09:00 Hydralazine HCl (Apresoline) 50 mg BID PO Last administered on 01/30/19at 09:03; Start 01/30/19 at 09:00 Sodium Chloride 1,000 ml @ 1,000 mls/hr Q1H PRN IV hypotension; Start 01/30/19 at 09:36; Stop 01/30/19 at 15:35 Albumin Human 200 ml @ 200 mls/hr 1X PRN PRN IV Hypotension; Start 01/30/19 at 09:45; Stop 01/30/19 at 15:44 Acetaminophen (Tylenol) 500 mg 1X PRN PRN PO MILD PAIN / TEMP; Start 01/30/19 at 09:45; Stop 01/31/19 at 09:44 Diphenhydramine HCl (Benadryl) 25 mg 1X PRN PRN IV ITCHING; Start 01/30/19 at 09:45; Stop 01/31/19 at 09:44 Diphenhydramine HCl (Benadryl) 25 mg 1X PRN PRN IV ITCHING; Start 01/30/19 at 09:45; Stop 01/31/19 at 09:44 Sodium Chloride (Normal Saline Flush) 10 ml 1X PRN PRN IV AP catheter pack; Start 01/30/19 at 09:45; Stop 01/31/19 at 09:44 Sodium Chloride (Normal Saline Flush) 10 ml 1X PRN PRN IV TABLE HAND catheter pack; Start 01/30/19 at 09:45; Stop 01/31/19 at 09:44 Sodium Chloride 1,000 ml @ 400 mls/hr Q2H30M PRN IV PATENCY; Start 01/30/19 at 09:36; Stop 01/30/19 at 21:35 Info (PHARMACY MONITORING -- do not chart) 1 each PRN DAILY PRN MC SEE COMMENTS; Start 01/30/19 at 09:45 Albuterol Sulfate (Ventolin Neb Soln) 2.5 mg PRN Q4HRS PRN NEB SHORTNESS OF BREATH; Start 01/30/19 at 10:00 Alprazolam (Xanax) 0.25 mg PRN DAILY PRN PO ANXIETY / AGITATION; Start 01/30/19 at 10:00 Amlodipine Besylate (Norvasc) 10 mg DAILY PO ; Start 01/30/19 at 11:00 Aspirin (Ecotrin) 325 mg DAILYWBKFT PO ; Start 01/30/19 at 11:00; Stop 01/30/19 at 10:35; Status DC Atorvastatin Calcium (Lipitor) 10 mg QHS PO ; Start 01/30/19 at 21:00 Calcium/Vitamin D (Oscal D 500mg/ 200uts) 1 tab BIDWMEALS PO ; Start 01/30/19 at 12:00 Cetirizine HCl (ZyrTEC) 10 mg DAILY PO ; Start 01/30/19 at 11:00 Docusate Sodium (Colace) 100 mg PRN DAILY PRN PO CONSTIPATION (1st Choice); Start 01/30/19 at 10:00 Duloxetine HCl (Cymbalta) 30 mg DAILY PO ; Start 01/30/19 at 11:00 Acetaminophen/ Hydrocodone Bitart (Lortab 5/325) 1 tab PRN Q6HRS PRN PO MODERATE PAIN Last administered on 01/30/19at 13:08; Start 01/30/19 at 10:00 Hydromorphone HCl (Dilaudid) 1 mg PRN Q4HRS PRN PO SEVERE PAIN; Start 01/30/19 at 10:00 Isosorbide Mononitrate (Imdur) 30 mg DAILY PO ; Start 01/30/19 at 11:00 Polyethylene Glycol (miraLAX PACKET) 17 gm PRN DAILY PRN PO CONSTIPATION (2nd Choice); Start 01/30/19 at 10:00 Lidocaine HCl (Xylocaine-Mpf 1% 2ml Vial) 2 ml STK-MED ONCE .ROUTE ; Start 01/30/19 at 10:29; Stop 01/30/19 at 10:30; Status DC Nitroglycerin (Nitrostat) 0.4 mg PRN Q5MIN PRN SL CHEST PAIN Last administered on 01/30/19at 13:07; Start 01/30/19 at 13:00 Active Scripts Active Isosorbide Mononitrate Er (Isosorbide Mononitrate) 30 Mg Tab.er.24h 30 Mg PO DAILY 30 Days Amlodipine Besylate 10 Mg Tablet 10 Mg PO DAILY 30 Days Dilaudid (Hydromorphone Hcl) 2 Mg Tablet 1 Mg PO PRN Q4HRS PRN 7 Days Coreg (Carvedilol) 6.25 Mg Tablet 6.25 Mg PO BIDWMEALS 30 Days Atorvastatin Calcium 10 Mg Tablet 10 Mg PO QHS 30 Days Colace (Docusate Sodium) 100 Mg Capsule 100 Mg PO DAILY PRN Polyethylene Glycol 3350 17 Gm Powd.pack 17 Gm PO DAILY PRN Proair Hfa (Albuterol Sulfate) 8.5 Gm Hfa.aer.ad 2.5 Mg NEB PRN Q4HRS PRN 30 Days Cetirizine Hcl 10 Mg Tablet 10 Mg PO DAILY 30 Days Oyster Shell 500 Mg + Vit D Tb (Calcium Carbonate/Vitamin D3) 1 Each Tablet 1 Tab PO BIDWMEALS 30 Days Aspirin Ec (Aspirin) 325 Mg Tablet. 325 Mg PO DAILYWBKFT 30 Days Reported Hydrocodone-Apap 5-325 (Hydrocodone Bit/Acetaminophen) 1 Tab Tablet 1 Tab PO PRN Q6HRS PRN Clonidine Hcl 0.2 Mg Tablet 0.2 Mg PO BID Alprazolam 0.25 Mg Tablet 1 Tab PO PRN DAILY PRN Cymbalta (Duloxetine Hcl) 30 Mg Capsule. 1 Cap PO DAILY Hydralazine Hcl 50 Mg Tablet 1 Tab PO BID Allergies Allergies: Coded Allergies: lisinopril (Verified Allergy, Severe, Swelling, 01/18/19) codeine (Verified Allergy, Intermediate, itching, 01/18/19) TAKES LORTAB AT HOME IN THE PAST morphine (Verified Allergy, Intermediate, DOES NOT WORK, 01/19/19) Patient states this medication does not work. He denies it being a true allergy. ROS Review of System Per HPI Physical Exam Physical Exam GENERAL: NAD HEENT: OM moist NECK: Supple. LUNGS: Diminished breath sounds on the right side. CARDIOVASCULAR: S1, S2. ABDOMEN: firmness in the middle abdomen . : No Zam[place] EXTREMITIES: no edema. NEURO- Grossly Normal Vital Signs Vital Signs Date Time Temp Pulse Resp B/P (MAP) Pulse Ox O2 Delivery O2 Flow Rate FiO2 01/30/19 13:07 90 01/30/19 09:50 171/109 (129) 01/30/19 08:39 96 Nasal Cannula 2.0 01/30/19 08:00 97.0 97.0 01/30/19 06:00 40 Assessment & Plan ESRD - On HD MWF, Dialysis today as ordered, was tolerating well -after about 21/2 hrs started having CP Dialysis Stopped, EKG done, further fu per Primary Abdominal pain secondary to possible hematoma of the abdominal wall. Recent umbilical hernia repair surgery and removal of peritoneal dialysis catheter. Recurrent right pleural effusion. Malignant hypertension Stable coronary artery disease. Labs Labs Laboratory Tests Test 01/29/19 22:30 01/30/19 00:05 White Blood Count 5.5 x10^3/uL (4.0-11.0) Red Blood Count 4.15 x10^6/uL (4.30-5.70) Hemoglobin 11.8 g/dL (13.0-17.5) Hematocrit 35.8 % (39.0-53.0) Mean Corpuscular Volume 86 fL (79-100) Mean Corpuscular Hemoglobin 29 pg (25-35) Mean Corpuscular Hemoglobin Concent 33 g/dL (31-37) Red Cell Distribution Width 15.8 % (11.5-14.5) Platelet Count 189 x10^3/uL (140-400) Neutrophils (%) (Auto) 71 % (31-73) Lymphocytes (%) (Auto) 14 % (24-48) Monocytes (%) (Auto) 9 % (0-9) Eosinophils (%) (Auto) 6 % (0-3) Basophils (%) (Auto) 0 % (0-3) Neutrophils # (Auto) 3.9 x10^3/uL (1.8-7.7) Lymphocytes # (Auto) 0.8 x10^3/uL (1.0-4.8) Monocytes # (Auto) 0.5 x10^3/uL (0.0-1.1) Eosinophils # (Auto) 0.4 x10^3/uL (0.0-0.7) Basophils # (Auto) 0.0 x10^3/uL (0.0-0.2) Prothrombin Time 14.2 SEC (11.7-14.0) Prothromb Time International Ratio 1.1 (0.8-1.1) Sodium Level 145 mmol/L (136-145) Potassium Level 4.8 mmol/L (3.5-5.1) Chloride Level 107 mmol/L (98-107) Carbon Dioxide Level 25 mmol/L (21-32) Anion Gap 13 (6-14) Blood Urea Nitrogen 63 mg/dL (8-26) Creatinine 6.7 mg/dL (0.7-1.3) Estimated GFR (Cockcroft-Gault) 10.5 BUN/Creatinine Ratio 9 (6-20) Glucose Level 93 mg/dL (70-99) Calcium Level 8.8 mg/dL (8.5-10.1) Magnesium Level 2.4 mg/dL (1.8-2.4) Total Bilirubin 0.9 mg/dL (0.2-1.0) Aspartate Amino Transf (AST/SGOT) 20 U/L (15-37) Alanine Aminotransferase (ALT/SGPT) 22 U/L (16-63) Alkaline Phosphatase 147 U/L (46-116) Creatine Kinase 82 U/L (39-308) Troponin I Quantitative 0.057 ng/mL (0.000-0.055) Total Protein 7.2 g/dL (6.4-8.2) Albumin 3.3 g/dL (3.4-5.0) Albumin/Globulin Ratio 0.8 (1.0-1.7) Lipase 234 U/L (73-393) Urine Collection Type Unknown Urine Color Yellow Urine Clarity Clear Urine pH 7.5 Urine Specific [place] 1.010 Urine Protein 100 mg/dL (NEG-TRACE) Urine Glucose (UA) Negative mg/dL (NEG) Urine Ketones (Stick) Negative mg/dL (NEG) Urine Blood Negative (NEG) Urine Nitrite Negative (NEG) Urine Bilirubin Negative (NEG) Urine Urobilinogen Dipstick 0.2 mg/dL (0.2 mg/dL) Urine Leukocyte Esterase Negative (NEG) Urine RBC 3-5 /HPF (0-2) Urine WBC Occ /HPF (0-4) Urine Squamous Epithelial Cells Few /LPF Urine Bacteria 0 /HPF (0-FEW) Urine Mucus Slight /LPF Urine Opiates Screen Pos (NEG) Urine Methadone Screen Neg (NEG) Urine Barbiturates Neg (NEG) Urine Phencyclidine Screen Neg (NEG) Urine Amphetamine/Methamphetamine Neg (NEG) Urine Benzodiazepines Screen Neg (NEG) Urine Cocaine Screen Neg (NEG) Urine Cannabinoids Screen Neg (NEG) Urine Ethyl Alcohol Neg (NEG) Laboratory Tests Test 01/29/19 22:30 01/30/19 00:05 White Blood Count 5.5 x10^3/uL (4.0-11.0) Red Blood Count 4.15 x10^6/uL (4.30-5.70) Hemoglobin 11.8 g/dL (13.0-17.5) Hematocrit 35.8 % (39.0-53.0) Mean Corpuscular Volume 86 fL (79-100) Mean Corpuscular Hemoglobin 29 pg (25-35) Mean Corpuscular Hemoglobin Concent 33 g/dL (31-37) Red Cell Distribution Width 15.8 % (11.5-14.5) Platelet Count 189 x10^3/uL (140-400) Neutrophils (%) (Auto) 71 % (31-73) Lymphocytes (%) (Auto) 14 % (24-48) Monocytes (%) (Auto) 9 % (0-9) Eosinophils (%) (Auto) 6 % (0-3) Basophils (%) (Auto) 0 % (0-3) Neutrophils # (Auto) 3.9 x10^3/uL (1.8-7.7) Lymphocytes # (Auto) 0.8 x10^3/uL (1.0-4.8) Monocytes # (Auto) 0.5 x10^3/uL (0.0-1.1) Eosinophils # (Auto) 0.4 x10^3/uL (0.0-0.7) Basophils # (Auto) 0.0 x10^3/uL (0.0-0.2) Prothrombin Time 14.2 SEC (11.7-14.0) Prothromb Time International Ratio 1.1 (0.8-1.1) Sodium Level 145 mmol/L (136-145) Potassium Level 4.8 mmol/L (3.5-5.1) Chloride Level 107 mmol/L (98-107) Carbon Dioxide Level 25 mmol/L (21-32) Anion Gap 13 (6-14) Blood Urea Nitrogen 63 mg/dL (8-26) Creatinine 6.7 mg/dL (0.7-1.3) Estimated GFR (Cockcroft-Gault) 10.5 BUN/Creatinine Ratio 9 (6-20) Glucose Level 93 mg/dL (70-99) Calcium Level 8.8 mg/dL (8.5-10.1) Magnesium Level 2.4 mg/dL (1.8-2.4) Total Bilirubin 0.9 mg/dL (0.2-1.0) Aspartate Amino Transf (AST/SGOT) 20 U/L (15-37) Alanine Aminotransferase (ALT/SGPT) 22 U/L (16-63) Alkaline Phosphatase 147 U/L (46-116) Creatine Kinase 82 U/L (39-308) Troponin I Quantitative 0.057 ng/mL (0.000-0.055) Total Protein 7.2 g/dL (6.4-8.2) Albumin 3.3 g/dL (3.4-5.0) Albumin/Globulin Ratio 0.8 (1.0-1.7) Lipase 234 U/L (73-393) Urine Collection Type Unknown Urine Color Yellow Urine Clarity Clear Urine pH 7.5 Urine Specific [place] 1.010 Urine Protein 100 mg/dL (NEG-TRACE) Urine Glucose (UA) Negative mg/dL (NEG) Urine Ketones (Stick) Negative mg/dL (NEG) Urine Blood Negative (NEG) Urine Nitrite Negative (NEG) Urine Bilirubin Negative (NEG) Urine Urobilinogen Dipstick 0.2 mg/dL (0.2 mg/dL) Urine Leukocyte Esterase Negative (NEG) Urine RBC 3-5 /HPF (0-2) Urine WBC Occ /HPF (0-4) Urine Squamous Epithelial Cells Few /LPF Urine Bacteria 0 /HPF (0-FEW) Urine Mucus Slight /LPF Urine Opiates Screen Pos (NEG) Urine Methadone Screen Neg (NEG) Urine Barbiturates Neg (NEG) Urine Phencyclidine Screen Neg (NEG) Urine Amphetamine/Methamphetamine Neg (NEG) Urine Benzodiazepines Screen Neg (NEG) Urine Cocaine Screen Neg (NEG) Urine Cannabinoids Screen Neg (NEG) Urine Ethyl Alcohol Neg (NEG) Review All relevant outside records, renal labs, imaging studies, telemetry/EKG's were reviewed. Images Images 1. Stable large right pleural effusion with adjacent consolidation of the lung parenchyma most likely secondary to passive atelectasis. 2. Stable small ascites. 3. Masslike enlargement of the left rectus abdominis musculature most likely secondary to a hematoma. MAGDIEL VOGEL MD Jan 30, 2019 14:45
[2019-01-30] MEDS: CALCIUM CARB/VIT D3 500/200 TABLET. PO SCH ×2 (15:26→17:50)
[2019-01-30] MEDS: HYDROmorphone 2 MG TABLET PO PRN (15:27)
[2019-01-30] MEDS: DULoxetine HCL 30 MG CAPSULE.DR PO SCH (15:27)
[2019-01-30] MEDS: CETIRIZINE HCL 10 MG TABLET. PO SCH (15:27)
[2019-01-30] MEDS: ISOSORBIDE MONONITRATE ER 30 MG TAB.ER.24H PO SCH (15:27)
[2019-01-30] MEDS: amLODIPine BESYLATE 10 MG TABLET PO SCH (15:30)
[2019-01-30] MEDS: ATORVASTATIN CALCIUM 10 MG TABLET. PO SCH (19:56)
[2019-01-31] VITALS (9 sets, daily range): BP systolic 104–191; BP diastolic 57–117
[2019-01-31] MEDS: ISOSORBIDE MONONITRATE ER 30 MG TAB.ER.24H PO SCH (08:15)
[2019-01-31] MEDS: DULoxetine HCL 30 MG CAPSULE.DR PO SCH (08:15)
[2019-01-31] MEDS: CALCIUM CARB/VIT D3 500/200 TABLET. PO SCH ×2 (08:15→17:49)
[2019-01-31] MEDS: CARVEDILOL 6.25 MG TABLET. PO SCH ×2 (08:15→17:00)
[2019-01-31] MEDS: CETIRIZINE HCL 10 MG TABLET. PO SCH (08:15)
[2019-01-31] MEDS: amLODIPine BESYLATE 10 MG TABLET PO SCH (08:16)
[2019-01-31] MEDS: HYDROcodone/APAP 5/325MG 1 TAB TABLET PO PRN ×2 (08:16→17:49)
[2019-01-31] MEDS: cloNIDine HCL 0.2 MG TABLET PO SCH ×2 (08:16→21:00)
--- NOTE | 2019-01-31 09:25 | PDOC ---
BERTIN MACK BOILER REPAIRMAN 01/31/19 0925: SURGICAL PROGRESS NOTE Subjective tired some abdominal pain, however improved tolerated breakfast Vital Signs Vital Signs Date Time Temp Pulse Resp B/P (MAP) Pulse Ox O2 Delivery O2 Flow Rate FiO2 01/31/19 08:16 75 01/31/19 07:00 97.6 18 191/117 (141) 97 Nasal Cannula 2.0 97.6 I&O Intake and Output 01/31/19 07:00 Intake Total 900 ml Output Total 400 ml Balance 500 ml Intake Oral 900 ml Output Urine Total 400 ml # Voids 1 General: Alert, Oriented X3, Cooperative, No acute distress Abdomen: Soft, Other (firmness under shirin, ecchymosis ) Labs Laboratory Tests Test 01/29/19 22:30 01/30/19 00:05 White Blood Count 5.5 x10^3/uL (4.0-11.0) Red Blood Count 4.15 x10^6/uL (4.30-5.70) Hemoglobin 11.8 g/dL (13.0-17.5) Hematocrit 35.8 % (39.0-53.0) Mean Corpuscular Volume 86 fL (79-100) Mean Corpuscular Hemoglobin 29 pg (25-35) Mean Corpuscular Hemoglobin Concent 33 g/dL (31-37) Red Cell Distribution Width 15.8 % (11.5-14.5) Platelet Count 189 x10^3/uL (140-400) Neutrophils (%) (Auto) 71 % (31-73) Lymphocytes (%) (Auto) 14 % (24-48) Monocytes (%) (Auto) 9 % (0-9) Eosinophils (%) (Auto) 6 % (0-3) Basophils (%) (Auto) 0 % (0-3) Neutrophils # (Auto) 3.9 x10^3/uL (1.8-7.7) Lymphocytes # (Auto) 0.8 x10^3/uL (1.0-4.8) Monocytes # (Auto) 0.5 x10^3/uL (0.0-1.1) Eosinophils # (Auto) 0.4 x10^3/uL (0.0-0.7) Basophils # (Auto) 0.0 x10^3/uL (0.0-0.2) Prothrombin Time 14.2 SEC (11.7-14.0) Prothromb Time International Ratio 1.1 (0.8-1.1) Sodium Level 145 mmol/L (136-145) Potassium Level 4.8 mmol/L (3.5-5.1) Chloride Level 107 mmol/L (98-107) Carbon Dioxide Level 25 mmol/L (21-32) Anion Gap 13 (6-14) Blood Urea Nitrogen 63 mg/dL (8-26) Creatinine 6.7 mg/dL (0.7-1.3) Estimated GFR (Cockcroft-Gault) 10.5 BUN/Creatinine Ratio 9 (6-20) Glucose Level 93 mg/dL (70-99) Calcium Level 8.8 mg/dL (8.5-10.1) Magnesium Level 2.4 mg/dL (1.8-2.4) Total Bilirubin 0.9 mg/dL (0.2-1.0) Aspartate Amino Transf (AST/SGOT) 20 U/L (15-37) Alanine Aminotransferase (ALT/SGPT) 22 U/L (16-63) Alkaline Phosphatase 147 U/L (46-116) Creatine Kinase 82 U/L (39-308) Troponin I Quantitative 0.057 ng/mL (0.000-0.055) Total Protein 7.2 g/dL (6.4-8.2) Albumin 3.3 g/dL (3.4-5.0) Albumin/Globulin Ratio 0.8 (1.0-1.7) Lipase 234 U/L (73-393) Urine Collection Type Unknown Urine Color Yellow Urine Clarity Clear Urine pH 7.5 Urine Specific [place] 1.010 Urine Protein 100 mg/dL (NEG-TRACE) Urine Glucose (UA) Negative mg/dL (NEG) Urine Ketones (Stick) Negative mg/dL (NEG) Urine Blood Negative (NEG) Urine Nitrite Negative (NEG) Urine Bilirubin Negative (NEG) Urine Urobilinogen Dipstick 0.2 mg/dL (0.2 mg/dL) Urine Leukocyte Esterase Negative (NEG) Urine RBC 3-5 /HPF (0-2) Urine WBC Occ /HPF (0-4) Urine Squamous Epithelial Cells Few /LPF Urine Bacteria 0 /HPF (0-FEW) Urine Mucus Slight /LPF Urine Opiates Screen Pos (NEG) Urine Methadone Screen Neg (NEG) Urine Barbiturates Neg (NEG) Urine Phencyclidine Screen Neg (NEG) Urine Amphetamine/Methamphetamine Neg (NEG) Urine Benzodiazepines Screen Neg (NEG) Urine Cocaine Screen Neg (NEG) Urine Cannabinoids Screen Neg (NEG) Urine Ethyl Alcohol Neg (NEG) Problem List Problems Medical Problems: (1) Dizziness Status: Acute (2) ESRD (end stage renal disease) on dialysis Status: Chronic (3) Traumatic rectus hematoma Status: Acute Assessment/Plan stable hematoma leave shirin in place FU in clinic with LUZ ELENA Rangel MD 02/01/19 0908: SURGICAL PROGRESS NOTE Assessment/Plan LATE ENTRY pt seen yesterday, 01/31 agree with above will see in office for follow up BERTIN MACK APRN Jan 31, 2019 09:25 LUZ ELENA HERRERA MD Feb 01, 2019 09:08
--- NOTE | 2019-01-31 10:04 | PDOC ---
PROGRESS NOTES Subjective Subjective feels better today Objective Objective Vital Signs Date Time Temp Pulse Resp B/P (MAP) Pulse Ox O2 Delivery O2 Flow Rate FiO2 01/31/19 08:16 75 01/31/19 07:00 97.6 18 191/117 (141) 97 Nasal Cannula 2.0 97.6 Intake and Output 01/31/19 07:00 Intake Total 900 ml Output Total 400 ml Balance 500 ml Intake Oral 900 ml Output Urine Total 400 ml # Voids 1 Physical Exam Abdomen: Soft, Other (firmness under shirin, ecchymosis ) Heart: Regular rate, Normal S1, Normal S2 General: Alert, Oriented X3, Cooperative, No acute distress HEENT: PERRLA, Mucous membr. moist/pink Lungs: Clear to auscultation, Normal air movement MUSCULOSKELETAL: No deformity, No swelling Neuro: Normal speech, Sensation intact Psych/Mental Status: Mental status NL, Mood NL Skin: No rashes, No breakdown Diagnosis Problem List Problems Medical Problems: (1) Dizziness Status: Acute (2) ESRD (end stage renal disease) on dialysis Status: Chronic (3) Traumatic rectus hematoma Status: Acute Assessment Assessment Problems Medical Problems: (1) Dizziness Status: Acute (2) ESRD (end stage renal disease) on dialysis Status: Chronic (3) Traumatic rectus hematoma Status: Acute FINAL IMPRESSION: 1. Abdominal pain secondary to possible hematoma of the abdominal wall. 2. Recent umbilical hernia repair surgery and removal of peritoneal dialysis catheter. 3. Recurrent right pleural effusion. 4. End-stage renal disease, on hemodialysis. 5. Malignant hypertension. 6. Hypertension. 7. Stable coronary artery disease PLAN: BP good control today. spoke with Ir will do thoracocentesis today Dialysis tomorrow morning d/c home tomorrow after dialysis . At this time was to admit to hospital, had a CT scan of the abdomen and pelvis. Pain control, surgical consult, and also dialysis today and maybe we can get thoracocentesis to take the fluid off in the next couple of days. ,spoke with IR At this time was to admit to hospital, had a CT scan of the abdomen and pelvis. Pain control, surgical consult, and also dialysis today and maybe we can get thoracocentesis to take the fluid off in the next couple of days. Plan Plan of Care Problems Medical Problems: (1) Dizziness Status: Acute (2) ESRD (end stage renal disease) on dialysis Status: Chronic (3) Traumatic rectus hematoma Status: Acute Comment Review of Relevant I have reviewed the following items benjamin (where applicable) has been applied. Medications Current Medications Amlodipine Besylate (Norvasc) 10 mg DAILY PO Last administered on 01/31/19 08:16; Start 01/30/19 at 11:00 Aspirin (Ecotrin) 325 mg DAILYWBKFT PO ; Start 01/30/19 at 11:00; Stop 01/30/19 at 10:35; Status DC Atorvastatin Calcium (Lipitor) 10 mg QHS PO Last administered on 01/30/19at 19:56; Start 01/30/19 at 21:00 Calcium/Vitamin D (Oscal D 500mg/ 200uts) 1 tab BIDWMEALS PO Last administered on 01/31/19at 08:15; Start 01/30/19 at 12:00 Cetirizine HCl (ZyrTEC) 10 mg DAILY PO Last administered on 01/31/19at 08:15; Start 01/30/19 at 11:00 Duloxetine HCl (Cymbalta) 30 mg DAILY PO Last administered on 01/31/19at 08:15; Start 01/30/19 at 11:00 Isosorbide Mononitrate (Imdur) 30 mg DAILY PO Last administered on 01/31/19at 08:15; Start 01/30/19 at 11:00 Lidocaine HCl (Xylocaine-Mpf 1% 2ml Vial) 2 ml STK-MED ONCE .ROUTE ; Start 01/30/19 at 10:29; Stop 01/30/19 at 10:30; Status DC Nitroglycerin (Nitrostat) 0.4 mg PRN Q5MIN PRN SL CHEST PAIN Last administered on 01/30/19at 13:07; Start 01/30/19 at 13:00 Vitals/I & O Vital Sign - Last 24 Hours 01/30/19 01/30/19 01/30/19 01/30/19 13:07 15:09 15:27 15:30 Temp 97.5 97.5 Pulse 90 94 90 80 B/P (MAP) 168/103 (124) 01/30/19 01/30/19 01/30/19 01/30/19 17:51 19:35 19:56 19:56 Temp 98.2 98.2 Pulse 80 75 74 Resp 22 B/P (MAP) 143/81 (101) 143/81 143/81 Pulse Ox 95 O2 Delivery Nasal Cannula O2 Flow Rate 2.0 01/30/19 01/30/19 01/30/19 01/31/19 19:56 20:00 22:55 03:00 Temp 98.2 97.7 98.2 97.7 Pulse 65 69 Resp 22 20 B/P (MAP) 125/81 (96) 162/100 (120) Pulse Ox 100 100 O2 Delivery Nasal Cannula Nasal Cannula Nasal Cannula Nasal Cannula O2 Flow Rate 2.0 2.0 2.0 01/31/19 01/31/19 01/31/19 01/31/19 07:00 08:15 08:15 08:16 Temp 97.6 97.6 Pulse 69 75 75 75 Resp 18 B/P (MAP) 191/117 (141) Pulse Ox 97 O2 Delivery Nasal Cannula O2 Flow Rate 2.0 01/31/19 01/31/19 08:16 08:16 Pulse 75 75 Intake and Output 01/30/19 01/30/19 01/31/19 15:00 23:00 07:00 Intake Total 0 ml 300 ml 600 ml Output Total 350 ml 50 ml Balance 0 ml -50 ml 550 ml ROSALINO SERRANO MD Jan 31, 2019 10:04
--- NOTE | 2019-01-31 12:06 | PDOC ---
SUBJECTIVE ROS States feeling somewhat better and will be getting Thoracentesis today OBJECTIVE Vital Signs Vital Signs Date Time Temp Pulse Resp B/P (MAP) Pulse Ox O2 Delivery O2 Flow Rate FiO2 01/31/19 11:03 97.6 55 20 191/57 (101) 97 Nasal Cannula 2.0 97.6 I & 0 Intake and Output 01/31/19 07:00 Intake Total 900 ml Output Total 400 ml Balance 500 ml Intake Oral 900 ml Output Urine Total 400 ml # Voids 1 PHYSICAL EXAM Physical Exam GENERAL: NAD HEENT: OM moist NECK: Supple. LUNGS: Diminished breath sounds on the right side. CARDIOVASCULAR: S1, S2. ABDOMEN: firmness in the middle abdomen . : No Zamorano EXTREMITIES: no edema. NEURO- Grossly Normal DIAGNOSIS/ASSESSMENT Assessment & Plan ESRD - On HD MWF, Didnt complete full treatment yesterday due to CP currently no indication for HD today Abdominal pain secondary to possible hematoma of the abdominal wall GS following Recent umbilical hernia repair surgery and removal of peritoneal dialysis catheter. Recurrent right pleural effusion Thoracentesis scheduled today per pt Malignant hypertension Stable coronary artery disease. COMMENT/RELEVANT DATA Meds Current Medications Medications (Trade) Dose Ordered Sig/Sascha Start Time Stop Time Status Last Admin Dose Admin Acetaminophen (Tylenol) 500 mg 1X PRN PRN 01/30/19 09:45 01/31/19 09:44 DC Acetaminophen/ Hydrocodone Bitart (Lortab 5/325) 1 tab PRN Q6HRS PRN 01/30/19 10:00 01/31/19 08:16 1 TAB Albumin Human 200 ml @ 200 mls/hr 1X PRN PRN 01/30/19 09:45 01/30/19 15:44 DC Albuterol Sulfate (Ventolin Neb Soln) 2.5 mg PRN Q4HRS PRN 01/30/19 10:00 Albuterol/ Ipratropium (Duoneb) 3 ml 1X ONCE 01/30/19 08:30 01/30/19 08:35 DC 01/30/19 08:38 3 ML Alprazolam (Xanax) 0.25 mg PRN DAILY PRN 01/30/19 10:00 Amlodipine Besylate (Norvasc) 10 mg DAILY 01/30/19 11:00 01/31/19 08:16 10 MG Aspirin (Ecotrin) 325 mg DAILYWBKFT 01/30/19 11:00 01/30/19 10:35 DC Atorvastatin Calcium (Lipitor) 10 mg QHS 01/30/19 21:00 01/30/19 19:56 10 MG Calcium/Vitamin D (Oscal D 500mg/ 200uts) 1 tab BIDWMEALS 01/30/19 12:00 01/31/19 08:15 1 TAB Carvedilol (Coreg) 6.25 mg BIDWMEALS 01/30/19 09:00 01/31/19 08:15 6.25 MG Cetirizine HCl (ZyrTEC) 10 mg DAILY 01/30/19 11:00 01/31/19 08:15 10 MG Clonidine HCl (Catapres) 0.2 mg BID 01/30/19 09:00 01/31/19 08:16 0.2 MG Diphenhydramine HCl (Benadryl) 25 mg 1X PRN PRN 01/30/19 09:45 01/31/19 09:44 DC Docusate Sodium (Colace) 100 mg PRN DAILY PRN 01/30/19 10:00 Duloxetine HCl (Cymbalta) 30 mg DAILY 01/30/19 11:00 01/31/19 08:15 30 MG Fentanyl Citrate (Fentanyl 2ml Vial) 50 mcg 1X ONCE 01/29/19 22:15 01/29/19 22:16 DC 01/29/19 22:22 50 MCG Hydralazine HCl (Apresoline Inj) 10 mg 1X ONCE 01/30/19 07:15 01/30/19 07:16 DC 01/30/19 07:57 10 MG Hydralazine HCl (Apresoline) 50 mg BID 01/30/19 09:00 01/31/19 08:16 50 MG Hydromorphone HCl (Dilaudid) 1 mg PRN Q4HRS PRN 01/30/19 10:00 01/30/19 15:27 1 MG Info (PHARMACY MONITORING -- do not chart) 1 each PRN DAILY PRN 01/30/19 09:45 Isosorbide Mononitrate (Imdur) 30 mg DAILY 01/30/19 11:00 01/31/19 08:15 30 MG Lidocaine HCl (Xylocaine-Mpf 1% 2ml Vial) 2 ml STK-MED ONCE 01/30/19 10:29 01/30/19 10:30 DC Nitroglycerin (Nitrostat) 0.4 mg PRN Q5MIN PRN 01/30/19 13:00 01/30/19 13:07 0.4 MG Polyethylene Glycol (miraLAX PACKET) 17 gm PRN DAILY PRN 01/30/19 10:00 Sodium Chloride 1,000 ml @ 400 mls/hr Q2H30M PRN 01/30/19 09:36 01/30/19 21:35 DC Sodium Chloride (Normal Saline Flush) 10 ml 1X PRN PRN 01/30/19 09:45 01/31/19 09:44 DC Results All relevant outside records, renal labs, imaging studies, telemetry/EKG's were reviewed. MAGDIEL VOGEL MD Jan 31, 2019 12:06
[2019-01-31] MEDS: HYDROmorphone 2 MG TABLET PO PRN ×2 (12:10→21:11)
[2019-01-31] MEDS: ATORVASTATIN CALCIUM 10 MG TABLET. PO SCH (21:11)
[2019-02-01 03:00] VITALS: BP 146/96
--- NOTE | 2019-02-01 04:15 | RAD ---
Indication: Status post thoracentesis. TECHNIQUE:Portable AP chest X-ray COMPARISON:01/29/2019 FINDINGS: Heart is moderately enlarged in size. Interval decrease in the size of right pleural effusion noted, currently small pleural effusion process. Left lung is clear. No pneumothorax. Visualized bony thorax within normal limits. IMPRESSION: Interval increase in size of right pleural effusion.Currently small right effusion. No pneumothorax. Electronically signed by: Mitchell Rizvi DO (02/01/2019 1:20 AM) [id number]
[2019-02-01 05:25] LABS: CALCIUM 8.3 mg/dL (8.5-10.1); CREATININE 5.8 mg/dL (0.7-1.3); GFR 12.4; POTASSIUM 4.1 mmol/L (3.5-5.1)
[2019-02-01 07:00] VITALS: BP 171/104
[2019-02-01] MEDS: CARVEDILOL 6.25 MG TABLET. PO SCH ×2 (08:00→17:24)
[2019-02-01] MEDS: DULoxetine HCL 30 MG CAPSULE.DR PO SCH (08:42)
[2019-02-01] MEDS: CETIRIZINE HCL 10 MG TABLET. PO SCH (08:42)
[2019-02-01] MEDS: CALCIUM CARB/VIT D3 500/200 TABLET. PO SCH ×2 (08:42→17:22)
[2019-02-01] MEDS: HYDROmorphone 2 MG TABLET PO PRN ×3 (08:50→21:22)
[2019-02-01] MEDS: cloNIDine HCL 0.2 MG TABLET PO SCH ×2 (09:00→20:53)
[2019-02-01] MEDS ORDERED: LIDOCAINE 1% PF 2 ML VIAL. ONE ×2 (09:35→10:00)
--- NOTE | 2019-02-01 09:46 | PDOC ---
PROGRESS NOTES Subjective Subjective seen in dialysis Objective Objective Vital Signs Date Time Temp Pulse Resp B/P (MAP) Pulse Ox O2 Delivery O2 Flow Rate FiO2 02/01/19 08:50 Nasal Cannula 1.5 02/01/19 08:45 58 171/104 02/01/19 07:00 97.9 18 98 97.9 Intake and Output 02/01/19 07:00 Intake Total 480 ml Output Total 2325 ml Balance -1845 ml Intake Oral 480 ml Output Urine Total 100 ml Other 2225 ml Physical Exam Abdomen: Soft, Other (firmness under shirin, ecchymosis ) Heart: Regular rate, Normal S1, Normal S2 General: Alert, Oriented X3, Cooperative, No acute distress HEENT: PERRLA, Mucous membr. moist/pink Lungs: Clear to auscultation, Normal air movement MUSCULOSKELETAL: No deformity, No swelling Neuro: Normal speech, Sensation intact Psych/Mental Status: Mental status NL, Mood NL Skin: No rashes, No breakdown Diagnosis Problem List Problems Medical Problems: (1) Dizziness Status: Acute (2) ESRD (end stage renal disease) on dialysis Status: Chronic (3) Traumatic rectus hematoma Status: Acute Assessment Assessment Problems Medical Problems: (1) Dizziness Status: Acute (2) ESRD (end stage renal disease) on dialysis Status: Chronic (3) Traumatic rectus hematoma Status: Acute FINAL IMPRESSION: 1. Abdominal pain secondary to possible hematoma of the abdominal wall. 2. Recent umbilical hernia repair surgery and removal of peritoneal dialysis catheter. 3. Recurrent right pleural effusion. 4. End-stage renal disease, on hemodialysis. 5. Malignant hypertension. 6. Hypertension. 7. Stable coronary artery disease PLAN: Dialysis today BP good control today. spoke with IR ,thoracocentesis d/c home tomorrow . No surgical plans for abd wall hematoma Plan Plan of Care Problems Medical Problems: (1) Dizziness Status: Acute (2) ESRD (end stage renal disease) on dialysis Status: Chronic (3) Traumatic rectus hematoma Status: Acute Comment Review of Relevant I have reviewed the following items benjamin (where applicable) has been applied. Labs Laboratory Tests Test 02/01/19 04:25 Sodium Level 140 mmol/L (136-145) Potassium Level 4.1 mmol/L (3.5-5.1) Chloride Level 102 mmol/L (98-107) Carbon Dioxide Level 29 mmol/L (21-32) Anion Gap 9 (6-14) Blood Urea Nitrogen 47 mg/dL (8-26) Creatinine 5.8 mg/dL (0.7-1.3) Estimated GFR (Cockcroft-Gault) 12.4 Glucose Level 118 mg/dL (70-99) Calcium Level 8.3 mg/dL (8.5-10.1) Medications Current Medications Lidocaine HCl (Xylocaine-Mpf 1% 2ml Vial) 2 ml STK-MED ONCE .ROUTE ; Start 02/01/19 at 09:35; Stop 02/01/19 at 09:35; Status DC Vitals/I & O Vital Sign - Last 24 Hours 01/31/19 01/31/19 01/31/19 01/31/19 11:03 13:19 13:37 14:51 Temp 97.6 97.7 97.6 97.7 Pulse 55 69 49 51 Resp 20 20 20 18 B/P (MAP) 191/57 (101) 104/59 (74) 110/57 (74) 121/79 (93) Pulse Ox 97 92 95 95 O2 Delivery Nasal Cannula Nasal Cannula Nasal Cannula Nasal Cannula O2 Flow Rate 2.0 2.0 2.0 2.0 01/31/19 01/31/19 01/31/19 01/31/19 17:35 18:45 20:00 21:00 Temp 97.8 97.8 Pulse 53 59 59 Resp 16 B/P (MAP) 123/87 (99) 121/76 (91) 121/76 Pulse Ox 98 O2 Delivery Nasal Cannula Nasal Cannula O2 Flow Rate 2.0 2.0 01/31/19 01/31/19 01/31/19 01/31/19 21:11 21:13 22:11 23:00 Temp 97.8 97.8 Pulse 59 59 Resp 18 18 B/P (MAP) 121/76 121/76 (91) Pulse Ox 98 98 O2 Delivery Nasal Cannula Nasal Cannula Nasal Cannula O2 Flow Rate 1.5 1.5 1.5 02/01/19 02/01/19 02/01/19 02/01/19 03:00 07:00 08:45 08:50 Temp 97.9 97.9 97.9 97.9 Pulse 58 58 58 Resp 18 18 B/P (MAP) 146/96 (113) 171/104 (126) 171/104 Pulse Ox 98 O2 Delivery Nasal Cannula Nasal Cannula Nasal Cannula O2 Flow Rate 2.0 2.0 1.5 Intake and Output 01/31/19 01/31/19 02/01/19 15:00 23:00 07:00 Intake Total 480 ml Output Total 2225 ml 100 ml Balance -1745 ml -100 ml ROSALINO SERRANO MD Feb 01, 2019 09:46
[2019-02-01] MEDS ORDERED: IV NORMAL SALINE 1000ML BAG 1,000 ML IV PRN ×2 (10:12)
[2019-02-01] MEDS ORDERED: DIALYSIS PATIENT. MC PRN (10:15)
[2019-02-01] MEDS ORDERED: ACETAMINOPHEN 500 MG TABLET PO PRN (10:15)
[2019-02-01] MEDS ORDERED: diphenhydrAMINE 50 MG/ML VIAL IV PRN ×2 (10:15)
--- NOTE | 2019-02-01 11:40 | PDOC ---
SUBJECTIVE ROS States feeling better OBJECTIVE Vital Signs Vital Signs Date Time Temp Pulse Resp B/P (MAP) Pulse Ox O2 Delivery O2 Flow Rate FiO2 02/01/19 08:50 Nasal Cannula 1.5 02/01/19 08:45 58 171/104 02/01/19 07:00 97.9 18 98 97.9 I & 0 Intake and Output 02/01/19 07:00 Intake Total 480 ml Output Total 2325 ml Balance -1845 ml Intake Oral 480 ml Output Urine Total 100 ml Other 2225 ml PHYSICAL EXAM Physical Exam GENERAL: NAD HEENT: OM moist NECK: Supple. LUNGS: Diminished breath sounds on the right side. CARDIOVASCULAR: S1, S2. ABDOMEN: firmness in the middle abdomen . : No Zamorano EXTREMITIES: no edema. NEURO- Grossly Normal DIAGNOSIS/ASSESSMENT Assessment & Plan ESRD - On HD MWF, Seen on HD, tolerating well Continue as ordered, Miguel Duque Abdominal pain secondary to possible hematoma of the abdominal wall. Recent umbilical hernia repair surgery and removal of peritoneal dialysis catheter. Recurrent right pleural effusion- He is getting thoracentesis every 2 weeks to drain at least 2 L of fluid for the last 2 months. Malignant hypertension Stable coronary artery disease. COMMENT/RELEVANT DATA Meds Current Medications Medications (Trade) Dose Ordered Sig/Sascha Start Time Stop Time Status Last Admin Dose Admin Acetaminophen (Tylenol) 500 mg 1X PRN PRN 02/01/19 10:15 02/02/19 10:14 Acetaminophen/ Hydrocodone Bitart (Lortab 5/325) 1 tab PRN Q6HRS PRN 01/30/19 10:00 01/31/19 17:49 1 TAB Albumin Human 200 ml @ 200 mls/hr 1X PRN PRN 01/30/19 09:45 01/30/19 15:44 DC Albuterol Sulfate (Ventolin Neb Soln) 2.5 mg PRN Q4HRS PRN 01/30/19 10:00 Albuterol/ Ipratropium (Duoneb) 3 ml 1X ONCE 01/30/19 08:30 01/30/19 08:35 DC 01/30/19 08:38 3 ML Alprazolam (Xanax) 0.25 mg PRN DAILY PRN 01/30/19 10:00 02/01/19 00:59 0.25 MG Amlodipine Besylate (Norvasc) 10 mg DAILY 01/30/19 11:00 01/31/19 08:16 10 MG Aspirin (Ecotrin) 325 mg DAILYWBKFT 01/30/19 11:00 01/30/19 10:35 DC Atorvastatin Calcium (Lipitor) 10 mg QHS 01/30/19 21:00 01/31/19 21:11 10 MG Calcium/Vitamin D (Oscal D 500mg/ 200uts) 1 tab BIDWMEALS 01/30/19 12:00 02/01/19 08:42 1 TAB Carvedilol (Coreg) 6.25 mg BIDWMEALS 01/30/19 09:00 01/31/19 08:15 6.25 MG Cetirizine HCl (ZyrTEC) 10 mg DAILY 01/30/19 11:00 02/01/19 08:42 10 MG Clonidine HCl (Catapres) 0.2 mg BID 01/30/19 09:00 01/31/19 08:16 0.2 MG Diphenhydramine HCl (Benadryl) 25 mg 1X PRN PRN 02/01/19 10:15 02/02/19 10:14 Docusate Sodium (Colace) 100 mg PRN DAILY PRN 01/30/19 10:00 Duloxetine HCl (Cymbalta) 30 mg DAILY 01/30/19 11:00 02/01/19 08:42 30 MG Fentanyl Citrate (Fentanyl 2ml Vial) 50 mcg 1X ONCE 01/29/19 22:15 01/29/19 22:16 DC 01/29/19 22:22 50 MCG Hydralazine HCl (Apresoline Inj) 10 mg 1X ONCE 01/30/19 07:15 01/30/19 07:16 DC 01/30/19 07:57 10 MG Hydralazine HCl (Apresoline) 50 mg BID 01/30/19 09:00 02/01/19 08:45 50 MG Hydromorphone HCl (Dilaudid) 1 mg PRN Q4HRS PRN 01/30/19 10:00 02/01/19 08:50 1 MG Info (PHARMACY MONITORING -- do not chart) 1 each PRN DAILY PRN 02/01/19 10:15 UNV Isosorbide Mononitrate (Imdur) 30 mg DAILY 01/30/19 11:00 01/31/19 08:15 30 MG Lidocaine HCl (Xylocaine-Mpf 1% 2ml Vial) 2 ml STK-MED ONCE 02/01/19 09:35 02/01/19 09:35 DC Nitroglycerin (Nitrostat) 0.4 mg PRN Q5MIN PRN 01/30/19 13:00 01/30/19 13:07 0.4 MG Polyethylene Glycol (miraLAX PACKET) 17 gm PRN DAILY PRN 01/30/19 10:00 Sodium Chloride 1,000 ml @ 400 mls/hr Q2H30M PRN 02/01/19 10:12 02/01/19 22:11 Sodium Chloride (Normal Saline Flush) 10 ml 1X PRN PRN 01/30/19 09:45 01/31/19 09:44 DC Lab Laboratory Tests Test 02/01/19 04:25 Sodium Level 140 mmol/L (136-145) Potassium Level 4.1 mmol/L (3.5-5.1) Chloride Level 102 mmol/L (98-107) Carbon Dioxide Level 29 mmol/L (21-32) Anion Gap 9 (6-14) Blood Urea Nitrogen 47 mg/dL (8-26) Creatinine 5.8 mg/dL (0.7-1.3) Estimated GFR (Cockcroft-Gault) 12.4 Glucose Level 118 mg/dL (70-99) Calcium Level 8.3 mg/dL (8.5-10.1) Results All relevant outside records, renal labs, imaging studies, telemetry/EKG's were reviewed. MAGDIEL VOGEL MD Feb 01, 2019 11:40
--- NOTE | 2019-02-01 13:03 | NUR ---
SS following up with discharge planning. No discharge needs noted at this time. SS will notify [facility], ; fax [phone], at discharge. SS will continue to follow for discharge planning.
[2019-02-01] MEDS: amLODIPine BESYLATE 10 MG TABLET PO SCH (14:15)
[2019-02-01] MEDS: ISOSORBIDE MONONITRATE ER 30 MG TAB.ER.24H PO SCH (14:16)
[2019-02-01 15:00] VITALS: BP 151/87
[2019-02-01 19:13] VITALS: BP 142/80
[2019-02-01] MEDS: ATORVASTATIN CALCIUM 10 MG TABLET. PO SCH (20:52)
[2019-02-01 22:48] VITALS: BP 128/88
[2019-02-02 03:10] VITALS: BP 160/108
[2019-02-02 07:00] VITALS: BP 170/103
[2019-02-02] MEDS: cloNIDine HCL 0.2 MG TABLET PO SCH (09:00)
[2019-02-02] MEDS: DULoxetine HCL 30 MG CAPSULE.DR PO SCH (09:45)
[2019-02-02] MEDS: ISOSORBIDE MONONITRATE ER 30 MG TAB.ER.24H PO SCH (09:46)
[2019-02-02] MEDS: amLODIPine BESYLATE 10 MG TABLET PO SCH (09:46)
[2019-02-02] MEDS: CALCIUM CARB/VIT D3 500/200 TABLET. PO SCH (09:46)
[2019-02-02] MEDS: CARVEDILOL 6.25 MG TABLET. PO SCH (09:47)
[2019-02-02] MEDS: CETIRIZINE HCL 10 MG TABLET. PO SCH (09:47)
--- NOTE | 2019-02-02 09:56 | PDOC ---
PROGRESS NOTES Subjective Subjective feels better ready to go home Objective Objective Vital Signs Date Time Temp Pulse Resp B/P (MAP) Pulse Ox O2 Delivery O2 Flow Rate FiO2 02/02/19 09:47 62 170/103 02/02/19 07:00 98.1 18 98 Nasal Cannula 2.0 98.1 Intake and Output 02/02/19 07:00 Intake Total 2220 ml Output Total 200 ml Balance 2020 ml Intake Oral 2220 ml Output Urine Total 200 ml Physical Exam Abdomen: Soft, Other (firmness under shirin, ecchymosis ) Heart: Regular rate, Normal S1, Normal S2 General: Alert, Oriented X3, Cooperative, No acute distress HEENT: PERRLA, Mucous membr. moist/pink Lungs: Clear to auscultation, Normal air movement MUSCULOSKELETAL: No deformity, No swelling Neuro: Normal speech, Sensation intact Psych/Mental Status: Mental status NL, Mood NL Skin: No rashes, No breakdown Diagnosis Problem List Problems Medical Problems: (1) Dizziness Status: Acute (2) ESRD (end stage renal disease) on dialysis Status: Chronic (3) Traumatic rectus hematoma Status: Acute Assessment Assessment Problems Medical Problems: (1) Dizziness Status: Acute (2) ESRD (end stage renal disease) on dialysis Status: Chronic (3) Traumatic rectus hematoma Status: Acute FINAL IMPRESSION: 1. Abdominal pain secondary to possible hematoma of the abdominal wall.pain and tenderness improved 2. Recent umbilical hernia repair surgery and removal of peritoneal dialysis catheter. 3. Recurrent right pleural effusion. 4. End-stage renal disease, on hemodialysis. 5. Malignant hypertension. 6. Hypertension. 7. Stable coronary artery disease PLAN:d/c home today Dialysis yesterday BP good control today. spoke with IR ,thoracocentesis done 2.5 L removed No surgical plans for abd wall hematoma Plan Plan of Care Problems Medical Problems: (1) Dizziness Status: Acute (2) ESRD (end stage renal disease) on dialysis Status: Chronic (3) Traumatic rectus hematoma Status: Acute Comment Review of Relevant I have reviewed the following items benjamin (where applicable) has been applied. Medications Current Medications Acetaminophen (Tylenol) 500 mg 1X PRN PRN PO MILD PAIN / TEMP; Start 02/01/19 at 10:15; Stop 02/02/19 at 10:14 Diphenhydramine HCl (Benadryl) 25 mg 1X PRN PRN IV ITCHING Last administered on 02/01/19at 11:46; Start 02/01/19 at 10:15; Stop 02/02/19 at 10:14 Diphenhydramine HCl (Benadryl) 25 mg 1X PRN PRN IV ITCHING; Start 02/01/19 at 10:15; Stop 02/02/19 at 10:14 Info (PHARMACY MONITORING -- do not chart) 1 each PRN DAILY PRN MC SEE COMMENTS; Start 02/01/19 at 10:15; Status UNV Lidocaine HCl (Xylocaine-Mpf 1% 2ml Vial) 2 ml STK-MED ONCE .ROUTE ; Start 02/01/19 at 10:00; Stop 02/02/19 at 09:02; Status DC Sodium Chloride 1,000 ml @ 400 mls/hr Q2H30M PRN IV PATENCY; Start 02/01/19 at 10:12; Stop 02/01/19 at 22:11; Status DC Sodium Chloride 1,000 ml @ 1,000 mls/hr Q1H PRN IV hypotension; Start 02/01/19 at 10:12; Stop 02/01/19 at 16:11; Status DC Vitals/I & O Vital Sign - Last 24 Hours 02/01/19 02/01/19 02/01/19 02/01/19 14:15 14:16 15:00 17:24 Temp 97.9 97.9 Pulse 65 70 74 88 Resp 16 B/P (MAP) 171/111 171/111 151/87 (108) 152/103 Pulse Ox 95 O2 Flow Rate 2.0 02/01/19 02/01/19 02/01/19 02/01/19 17:27 18:27 19:13 20:04 Temp 98.9 98.9 Pulse 63 Resp 16 B/P (MAP) 142/80 (100) Pulse Ox 95 O2 Delivery Nasal Cannula Nasal Cannula Nasal Cannula Nasal Cannula O2 Flow Rate 2.0 2.0 2.0 2.0 02/01/19 02/01/19 02/01/19 02/01/19 20:53 20:53 21:22 22:22 Pulse 61 61 Resp 16 16 B/P (MAP) 158/103 158/103 Pulse Ox 95 97 O2 Delivery Nasal Cannula Nasal Cannula O2 Flow Rate 2.0 2.0 10/23/19 02/02/19 02/02/19 02/02/19 22:48 03:10 07:00 09:46 Temp 98.9 98.1 98.1 98.9 98.1 98.1 Pulse 60 56 62 62 Resp 16 18 18 B/P (MAP) 128/88 (101) 160/108 (125) 170/103 (125) 170/103 Pulse Ox 96 97 98 O2 Delivery Nasal Cannula Nasal Cannula Nasal Cannula O2 Flow Rate 2.0 2.0 2.0 02/02/19 02/02/19 02/02/19 09:46 09:46 09:47 Pulse 62 62 62 B/P (MAP) 170/103 170/103 170/103 Intake and Output 02/01/19 02/01/19 02/02/19 15:00 23:00 07:00 Intake Total 1300 ml 120 ml 800 ml Output Total 200 ml Balance 1100 ml 120 ml 800 ml ROSALINO SERRANO MD Feb 02, 2019 09:56
--- NOTE | 2019-02-02 10:12 | PDOC ---
Provider Note Provider Note Discharge summary dictated.#[id number]. ROSALINO SERRANO MD Feb 02, 2019 10:12
[2019-02-02 11:00] VITALS: BP 106/61
--- NOTE | 2019-02-02 12:08 | PDOC ---
SUBJECTIVE ROS States feeling better OBJECTIVE Vital Signs Vital Signs Date Time Temp Pulse Resp B/P (MAP) Pulse Ox O2 Delivery O2 Flow Rate FiO2 02/02/19 09:47 62 170/103 02/02/19 08:00 Nasal Cannula 2.0 02/02/19 07:00 98.1 18 98 98.1 I & 0 Intake and Output 02/02/19 07:00 Intake Total 2220 ml Output Total 200 ml Balance 2020 ml Intake Oral 2220 ml Output Urine Total 200 ml PHYSICAL EXAM Physical Exam GENERAL: NAD HEENT: OM moist NECK: Supple. LUNGS: Diminished breath sounds on the right side. CARDIOVASCULAR: S1, S2. ABDOMEN: firmness in the middle abdomen . : No Zamorano EXTREMITIES: no edema. NEURO- Grossly Normal DIAGNOSIS/ASSESSMENT Assessment & Plan ESRD - On HD MWF, No indication for HD today Abdominal pain secondary to possible hematoma of the abdominal wall. Recent umbilical hernia repair surgery and removal of peritoneal dialysis catheter. Recurrent right pleural effusion- He is getting thoracentesis every 2 weeks to drain at least 2 L of fluid for the last 2 months S/P Thoracentesis 02/01- 2 lts fluid drained per report from pt Malignant hypertension- BP high, continue antihypertensives Stable coronary artery disease. COMMENT/RELEVANT DATA Meds Current Medications Medications (Trade) Dose Ordered Sig/Sascha Start Time Stop Time Status Last Admin Dose Admin Acetaminophen (Tylenol) 500 mg 1X PRN PRN 02/01/19 10:15 02/02/19 10:14 DC Acetaminophen/ Hydrocodone Bitart (Lortab 5/325) 1 tab PRN Q6HRS PRN 01/30/19 10:00 01/31/19 17:49 1 TAB Albumin Human 200 ml @ 200 mls/hr 1X PRN PRN 01/30/19 09:45 01/30/19 15:44 DC Albuterol Sulfate (Ventolin Neb Soln) 2.5 mg PRN Q4HRS PRN 01/30/19 10:00 Albuterol/ Ipratropium (Duoneb) 3 ml 1X ONCE 01/30/19 08:30 01/30/19 08:35 DC 01/30/19 08:38 3 ML Alprazolam (Xanax) 0.25 mg PRN DAILY PRN 01/30/19 10:00 02/01/19 00:59 0.25 MG Amlodipine Besylate (Norvasc) 10 mg DAILY 01/30/19 11:00 02/02/19 09:46 10 MG Aspirin (Ecotrin) 325 mg DAILYWBKFT 01/30/19 11:00 01/30/19 10:35 DC Atorvastatin Calcium (Lipitor) 10 mg QHS 01/30/19 21:00 02/01/19 20:52 10 MG Calcium/Vitamin D (Oscal D 500mg/ 200uts) 1 tab BIDWMEALS 01/30/19 12:00 02/02/19 09:46 1 TAB Carvedilol (Coreg) 6.25 mg BIDWMEALS 01/30/19 09:00 02/02/19 09:47 6.25 MG Cetirizine HCl (ZyrTEC) 10 mg DAILY 01/30/19 11:00 02/02/19 09:47 10 MG Clonidine HCl (Catapres) 0.2 mg BID 01/30/19 09:00 02/01/19 20:53 0.2 MG Diphenhydramine HCl (Benadryl) 25 mg 1X PRN PRN 02/01/19 10:15 02/02/19 10:14 DC Docusate Sodium (Colace) 100 mg PRN DAILY PRN 01/30/19 10:00 Duloxetine HCl (Cymbalta) 30 mg DAILY 01/30/19 11:00 02/02/19 09:45 30 MG Fentanyl Citrate (Fentanyl 2ml Vial) 50 mcg 1X ONCE 01/29/19 22:15 01/29/19 22:16 DC 01/29/19 22:22 50 MCG Hydralazine HCl (Apresoline Inj) 10 mg 1X ONCE 01/30/19 07:15 01/30/19 07:16 DC 01/30/19 07:57 10 MG Hydralazine HCl (Apresoline) 50 mg BID 01/30/19 09:00 02/02/19 09:46 50 MG Hydromorphone HCl (Dilaudid) 1 mg PRN Q4HRS PRN 01/30/19 10:00 02/01/19 21:22 1 MG Info (PHARMACY MONITORING -- do not chart) 1 each PRN DAILY PRN 02/01/19 10:15 UNV Isosorbide Mononitrate (Imdur) 30 mg DAILY 01/30/19 11:00 02/02/19 09:46 30 MG Lidocaine HCl (Xylocaine-Mpf 1% 2ml Vial) 2 ml STK-MED ONCE 02/01/19 10:00 02/02/19 09:02 DC Nitroglycerin (Nitrostat) 0.4 mg PRN Q5MIN PRN 01/30/19 13:00 01/30/19 13:07 0.4 MG Polyethylene Glycol (miraLAX PACKET) 17 gm PRN DAILY PRN 01/30/19 10:00 Sodium Chloride 1,000 ml @ 400 mls/hr Q2H30M PRN 02/01/19 10:12 02/01/19 22:11 DC Sodium Chloride (Normal Saline Flush) 10 ml 1X PRN PRN 01/30/19 09:45 01/31/19 09:44 DC Results All relevant outside records, renal labs, imaging studies, telemetry/EKG's were reviewed. MAGDIEL VOGEL MD Feb 02, 2019 12:08
--- NOTE | 2019-02-02 12:45 | NUR ---
Discharge Note: FRANKIE GARCIA T2 [facility] Discharge instructions and discharge home medications reviewed with Patient and a copy given. All questions have been answered and understanding verbalized. The following instructions and handouts were given: hypertension Patient discharged to home or self care with transport via wheelchair.
--- NOTE | 2019-02-02 13:11 | RAD ---
Ultrasound-guided right-sided thoracentesis 01/02/2019 Indication: RIGHT PLEURAL EFFUSION Procedure: Informed consent was obtained. A timeout procedure was performed. Sonographic evaluation of the right chest was performed demonstrating moderate pleural effusion. The right posterior chest was prepped and draped in sterile fashion. 1% lidocaine without epinephrine was administered for local anesthesia. Real-time ultrasonographic guidance was used in passing a 5 Ma[place] Yueh catheter into the right pleural space. 2.5 L of serosanguineous pleural fluid was removed. Samples of fluid were sent to the lab for further evaluation per ordering physician request. The catheter was removed and pressure held to achieve hemostasis. A sterile dressing was applied. No immediate complications were identified. The patient tolerated the procedure well. Impression: Right sided ultrasound-guided thoracentesis
--- NOTE | 2019-02-02 14:14 | DS ---
DATE OF DISCHARGE: 02/02/2019 REASON FOR ADMISSION TO THE HOSPITAL: 1. Severe abdominal pain. 2. Abdominal wall hematoma. 3. End-stage renal disease, on hemodialysis. 4. Pleural effusion. CONSULTATIONS: 1. Dr. Garcia, Renal. 2. Dr. Jones, General Surgery. 3. Interventional Radiology. PROCEDURES DONE: 1. CT scan of the abdomen and pelvis. 2. CT head. 3. Thoracocentesis right side. 4. Hemodialysis. HOSPITAL COURSE: The patient is a 53-year-old male patient who has end-stage renal disease. He was on peritoneal dialysis and transitioned to hemodialysis. He had a peritoneal dialysis catheter removed 10 days ago and he also at that time had umbilical hernia repair done. He went home and then developed severe abdominal pain, nausea and vomiting, was brought to the hospital. He was tender in the abdomen, had a CT scan, which shows abdominal wall hematoma, was seen by General Surgery. No surgical intervention is needed and the patient was hemodialyzed while he was in the hospital. He goes to dialysis on Wednesday, Wednesday and Wednesday. The patient also had a chest x-ray, which shows a recurrent right pleural effusion. IR was consulted, 2.5 liters was removed during the hospital stay. On the whole, the patient's condition improved and his blood pressure was high when he came in accelerated hypertension, at the time of discharge remained stable. FINAL IMPRESSION: 1. Severe abdominal pain. 2. Abdominal pain secondary to abdominal wall hematoma secondary to recent abdominal surgery. 3. End-stage renal disease, on hemodialysis. 4. Accelerated hypertension. 5. Recurrent right pleural effusion, had thoracocentesis done, 2.5 liters removed. 6. Coronary artery disease, stable. DISPOSITION: Home, see [facility] for discharge medications. At the time of discharge, the patient is stable, but the patient's chance for readmission to the hospital is high, multiple comorbid conditions.Holding aspirin for couple of weeks. ROSALINO SERRANO MD DR: RENATO/nts JOB#: [id number] / [id number] NORRIS Ferreira [facility]ITALMleissa
== END 2019-02-02 12:46 | disposition home or self-care (01) | DRG 919 ==
LOC: ER 21:51 → ED HOLD 23:41 → 2 SOUTH 01-30 07:43
PROVIDERS: ADMIT Internal Medicine; ATTEND Internal Medicine
PROC: 5A1D70Z Performance of Urinary Filtration, Intermittent, Less than 6 Hours Per Day (ICD-10-PCS; 2019-01-30)
PROC: 5A1D70Z Performance of Urinary Filtration, Intermittent, Less than 6 Hours Per Day (ICD-10-PCS; 2019-02-01)
PROC: 0W993ZZ Drainage of Right Pleural Cavity, Percutaneous Approach (ICD-10-PCS; principal; 2019-02-02)
DX: L76.32 Postprocedural hematoma of skin and subcutaneous tissue following other procedure (principal); N18.6 End stage renal disease; E43 Unspecified severe protein-calorie malnutrition; I16.1 Hypertensive emergency; J90 Pleural effusion, not elsewhere classified; I12.0 Hypertensive chronic kidney disease with stage 5 chronic kidney disease or end stage renal disease; J45.909 Unspecified asthma, uncomplicated; G62.9 Polyneuropathy, unspecified; Y83.8 Other surgical procedures as the cause of abnormal reaction of the patient, or of later complication, without mention of misadventure at the time of the procedure; F41.9 Anxiety disorder, unspecified; G93.89 Other specified disorders of brain; I25.10 Atherosclerotic heart disease of native coronary artery without angina pectoris; Z99.2 Dependence on renal dialysis; Z86.73 Personal history of transient ischemic attack (TIA), and cerebral infarction without residual deficits; Z82.3 Family history of stroke; Z82.49 Family history of ischemic heart disease and other diseases of the circulatory system; Z94.7 Corneal transplant status; Z98.1 Arthrodesis status; Z88.5 Allergy status to narcotic agent; Z88.8 Allergy status to other drugs, medicaments and biological substances
CPT/HCPCS: 32555; 36415; 70450; 71045; 74176; 80048; 80053; 80307; 81001; 82550; 83690; 83735; 84484; 85025; 85610; 93005; 94640; 96374; 96375; J0360; J1200; J3010; J7620; 99285-25; G0378

== ENCOUNTER 2019-10-25 00:55 | Inpatient (IN) | payer OTHER ==
[~2019-10-25] VITALS: Ht 350.5 cm; Wt 56.0 kg
[~2019-10-25 00:55] MED LIST changes: +POTA20TA4 PO; -POTA20TA82 PO
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
[2019-10-25 01:19] LABS: BASO # 0.1 x10^3/uL (0.0-0.2); BASO % 2 % (0-3); EOS # 0.2 x10^3/uL (0.0-0.7); EOS % 4 % (0-3); HEMATOCRIT 36.8 % (39.0-53.0); HEMOGLOBIN 12.4 g/dL (13.0-17.5); LYMPH # 0.6 x10^3/uL (1.0-4.8); LYMPH % 10 % (24-48); MEAN CORPUSCULAR HEMOGLOBIN 29 pg (25-35); MEAN CORPUSCULAR HGB CONC 34 g/dL (31-37); MEAN CORPUSCULAR VOLUME 87 fL (79-100); MONO # 0.7 x10^3/uL (0.0-1.1); MONO % 13 % (0-9); NEUT # 3.9 x10^3/uL (1.8-7.7); NEUT % 70 % (31-73); PLATELET COUNT 215 x10^3/uL (140-400); RED BLOOD COUNT 4.22 x10^6/uL (4.30-5.70); RED CELL DISTRIBUTION WIDTH 18.7 % (11.5-14.5); WHITE BLOOD COUNT 5.6 x10^3/uL (4.0-11.0)
[2019-10-25 01:31] LABS: CALCIUM 7.8 mg/dL (8.5-10.1); CREATININE 8.4 mg/dL (0.7-1.3); GFR 8.1; POTASSIUM 4.2 mmol/L (3.5-5.1)
[2019-10-25 01:39] LABS: ALBUMIN/GLOBULIN RATIO 0.7 (1.0-1.7); TOTAL BILIRUBIN 0.7 mg/dL (0.2-1.0); TOTAL PROTEIN 7.2 g/dL (6.4-8.2)
--- NOTE | 2019-10-25 02:37 | RAD ---
AP portable chest radiograph 10/25/2019 Clinical History: Shortness of breath. Pleural effusion. An AP erect portable digital radiograph of the chest was obtained. Comparison study is dated 08/08/2019. Anterior plate and bone screws along with pedicle screws and stabilizing rods are seen throughout the visualized main and lower cervical vertebrae, unchanged. The cardiac silhouette is mildly enlarged. The thoracic aorta is tortuous. There is a moderate to large sized right pleural effusion which has increased since the previous study. Right lower lobe atelectasis is noted. Mild to moderate congestive changes are seen involving both lungs. No pneumothorax is seen. The osseous structures are unchanged. Impression: 1. Moderate to large sized right pleural effusion which is increased since previous study. Right lower lobe atelectasis is noted. 2. Mild to moderate congestive changes. Electronically signed by: Eric Reynoso MD (10/25/2019 2:34 AM) [id number]
--- NOTE | 2019-10-25 04:47 | EKG ---
[facility] [address] [place] [address] Test Date: 2019-10-25 Test Time: 00:59:54 Pat Name: FRANKIE GARCIA Department: Room: Gender: M Second Facing Baster: : 1965 Requested By: VALORIE ALICIA Order Number: [id number] Reading MD: Measurements Intervals [place] Rate: 80 P: 66 GA: 132 QRS: 81 QRSD: 96 T: 28 QT: 418 QTc: 486 Interpretive Statements SINUS RHYTHM LEFT ATRIAL ABNORMALITY ST & T ABNORMALITY, CONSIDER INFERIOR ISCHEMIA OR LEFT VENTRICULAR STRAIN ABNORMAL ECG RI6.01 No previous ECG available for comparison
[2019-10-25] MEDS ORDERED: hydrALAZINE 20 MG/ML VIAL. IVP ONE ×3 (06:00→10:15)
[2019-10-25 08:21] LABS: PROTHROMBIN TIME PATIENT 15.1 SEC (11.7-14.0)
[2019-10-25] MEDS ORDERED: hydrALAZINE 20 MG/ML VIAL. IVP PRN (08:30)
[2019-10-25] MEDS ORDERED: LIDOCAINE WITH 8.4% SOD BICARB 3 ML DISP.SYRIN. ONE (09:10)
--- NOTE | 2019-10-25 09:10 | PDOC1 ---
History and Physical Date of Admission Date of Admission DATE: 10/25/19 TIME: 09:10 Identification/Chief Complaint Chief Complaint SEEN IN ER WITH PLEARAL EFFUSION, 54-year-old male past medical history end- stage renal disease on dialysis Wednesday presents with a chief complaint of shortness of breath and abdominal distention. Patient states symptoms have been ongoing for 1 day progressively becoming worse. Patient denies any associated chest pain fever cough. Past Medical History Cardiovascular: HTN Pulmonary: Asthma CENTRAL NERVOUS SYSTEM: CVA, Periperal neuropathy GI: No pertinent hx Heme/Onc: Anemia NOS Hepatobiliary: No pertinent hx Psych: Anxiety Infectious disease: No pertinent hx Renal/: Chronic renal failure Endocrine: No pertinent hx, Hyperparathyroidism Past Surgical History Past Surgical History: Hernia Repair, Other Family History Family History: Heart Disease, Hypertension, Stroke Social History Smoke: <1 pack per day ALCOHOL: none Drugs: None Current Medications Current Medications Current Medications Hydralazine HCl (Apresoline Inj) 10 mg 1X ONCE IVP Last administered on 10/25/19at 05:58; Start 10/25/19 at 06:00; Stop 10/25/19 at 06:01; Status DC Hydralazine HCl (Apresoline Inj) 10 mg 1X ONCE IVP Last administered on at 08:47; Start 10/25/19 at 08:30; Stop 10/25/19 at 08:33; Status DC Hydralazine HCl (Apresoline Inj) 10 mg PRN Q4HRS PRN IVP ELEVATED BP, SEE COMMENTS; Start 10/25/19 at 08:30 Active Scripts Active Hydrocodone-Apap 5-325 (Hydrocodone Bit/Acetaminophen) 1 Tab Tablet 1 Tab PO PRN Q6HRS PRN 6 Days Isosorbide Mononitrate Er (Isosorbide Mononitrate) 30 Mg Tab.er.24h 30 Mg PO DAILY 30 Days Amlodipine Besylate 10 Mg Tablet 10 Mg PO DAILY 30 Days Coreg (Carvedilol) 6.25 Mg Tablet 6.25 Mg PO BIDWMEALS 30 Days Atorvastatin Calcium 10 Mg Tablet 10 Mg PO QHS 30 Days Colace (Docusate Sodium) 100 Mg Capsule 100 Mg PO DAILY PRN Polyethylene Glycol 3350 17 Gm Powd.pack 17 Gm PO DAILY PRN Proair Hfa (Albuterol Sulfate) 8.5 Gm Hfa.aer.ad 2.5 Mg NEB PRN Q4HRS PRN 30 Days Cetirizine Hcl 10 Mg Tablet 10 Mg PO DAILY 30 Days Oyster Shell 500 Mg + Vit D Tb (Calcium Carbonate/Vitamin D3) 1 Each Tablet 1 Tab PO BIDWMEALS 30 Days Aspirin Ec (Aspirin) 325 Mg Tablet. 325 Mg PO DAILYWBKFT 30 Days Reported Cymbalta (Duloxetine Hcl) 30 Mg Capsule. 1 Cap PO DAILY Hydralazine Hcl 50 Mg Tablet 1 Tab PO BID Allergies Allergies: Coded Allergies: lisinopril (Verified Allergy, Severe, Swelling, 01/18/19) codeine (Verified Allergy, Intermediate, itching, 01/18/19) TAKES LORTAB AT HOME IN THE PAST ROS Review of System Constitutional: Denies fever or chills. [] Eyes: Denies change in visual acuity. [] HENT: Denies nasal congestion or sore throat. [] Respiratory: Denies cough positive shortness of breath. [] Cardiovascular: Denies chest pain or edema. [] GI: Denies abdominal pain, nausea, vomiting, bloody stools or diarrhea. [Positive abdominal distention] : Denies dysuria. [] Musculoskeletal: Denies back pain or joint pain. [] Integument: Denies rash. [] Neurologic: Denies headache, focal weakness or sensory changes. [] Endocrine: Denies polyuria or polydipsia. [] Lymphatic: Denies swollen glands. [] Psychiatric: Denies depression or anxiety. [] 14 PT ROS OTHERWISE NEG General: YES: Fatigue Respiratory: YES: Shortness of breath, SOB with excertion Physical Exam Physical Exam Constitutional: Well developed, well nourished, no acute distress, non-toxic appearance. [] HENT: Normocephalic, atraumatic, bilateral external ears normal, oropharynx moist, no oral exudates, nose normal. [] Eyes: PERRLA, EOMI, conjunctiva normal, no discharge. [] Neck: Normal range of motion, no tenderness, supple, no stridor. [] Cardiovascular:Heart rate regular rhythm, no murmur [] Lungs & Thorax: Decreased breath sounds right base patient no respiratory distress Abdomen: Bowel sounds normal, soft, no tenderness, no masses, no pulsatile masses. [] Skin: Warm, dry, no erythema, no rash. [] Back: No tenderness, no CVA tenderness. [] Extremities: No tenderness, no cyanosis, no clubbing, ROM intact, no edema. [] Neurologic: Alert and oriented X 3, normal motor function, normal sensory function, no focal deficits noted. [] Psychologic: Affect normal, judgment normal, mood normal. [] General: Alert, Oriented X3, Cooperative HEENT: Atraumatic, EOMI, Mucous membr. moist/pink Heart: RRR Breasts: Not examined Abdomen: Soft Rectal Exam: not examined PELVIC: Examination not indicated Extremities: No cyanosis Neuro: Normal speech, Strength at 5/5 X4 ext, Cranial nerves 3-12 NL Psych/Mental Status: Mental status NL, Mood NL Vitals Vitals Vital Signs Date Time Temp Pulse Resp B/P (MAP) Pulse Ox O2 Delivery O2 Flow Rate FiO2 10/25/19 08:47 79 210/144 10/25/19 07:06 95 Room Air 10/25/19 00:55 98.2 22 98.2 Labs Labs Laboratory Tests Test 10/25/19 01:08 White Blood Count 5.6 x10^3/uL (4.0-11.0) Red Blood Count 4.22 x10^6/uL (4.30-5.70) Hemoglobin 12.4 g/dL (13.0-17.5) Hematocrit 36.8 % (39.0-53.0) Mean Corpuscular Volume 87 fL (79-100) Mean Corpuscular Hemoglobin 29 pg (25-35) Mean Corpuscular Hemoglobin Concent 34 g/dL (31-37) Red Cell Distribution Width 18.7 % (11.5-14.5) Platelet Count 215 x10^3/uL (140-400) Neutrophils (%) (Auto) 70 % (31-73) Lymphocytes (%) (Auto) 10 % (24-48) Monocytes (%) (Auto) 13 % (0-9) Eosinophils (%) (Auto) 4 % (0-3) Basophils (%) (Auto) 2 % (0-3) Neutrophils # (Auto) 3.9 x10^3/uL (1.8-7.7) Lymphocytes # (Auto) 0.6 x10^3/uL (1.0-4.8) Monocytes # (Auto) 0.7 x10^3/uL (0.0-1.1) Eosinophils # (Auto) 0.2 x10^3/uL (0.0-0.7) Basophils # (Auto) 0.1 x10^3/uL (0.0-0.2) Prothrombin Time 15.1 SEC (11.7-14.0) Prothromb Time International Ratio 1.2 (0.8-1.1) Sodium Level 135 mmol/L (136-145) Potassium Level 4.2 mmol/L (3.5-5.1) Chloride Level 95 mmol/L (98-107) Carbon Dioxide Level 26 mmol/L (21-32) Anion Gap 14 (6-14) Blood Urea Nitrogen 85 mg/dL (8-26) Creatinine 8.4 mg/dL (0.7-1.3) Estimated GFR (Cockcroft-Gault) 8.1 BUN/Creatinine Ratio 10 (6-20) Glucose Level 156 mg/dL (70-99) Calcium Level 7.8 mg/dL (8.5-10.1) Total Bilirubin 0.7 mg/dL (0.2-1.0) Aspartate Amino Transf (AST/SGOT) 21 U/L (15-37) Alanine Aminotransferase (ALT/SGPT) 21 U/L (16-63) Alkaline Phosphatase 117 U/L (46-116) Troponin I Quantitative 0.136 ng/mL (0.000-0.055) ZP-Bqu-W-Type Natriuretic Peptide > 35718 pg/mL (0-124) Total Protein 7.2 g/dL (6.4-8.2) Albumin 3.0 g/dL (3.4-5.0) Albumin/Globulin Ratio 0.7 (1.0-1.7) Laboratory Tests Test 10/25/19 01:08 White Blood Count 5.6 x10^3/uL (4.0-11.0) Red Blood Count 4.22 x10^6/uL (4.30-5.70) Hemoglobin 12.4 g/dL (13.0-17.5) Hematocrit 36.8 % (39.0-53.0) Mean Corpuscular Volume 87 fL (79-100) Mean Corpuscular Hemoglobin 29 pg (25-35) Mean Corpuscular Hemoglobin Concent 34 g/dL (31-37) Red Cell Distribution Width 18.7 % (11.5-14.5) Platelet Count 215 x10^3/uL (140-400) Neutrophils (%) (Auto) 70 % (31-73) Lymphocytes (%) (Auto) 10 % (24-48) Monocytes (%) (Auto) 13 % (0-9) Eosinophils (%) (Auto) 4 % (0-3) Basophils (%) (Auto) 2 % (0-3) Neutrophils # (Auto) 3.9 x10^3/uL (1.8-7.7) Lymphocytes # (Auto) 0.6 x10^3/uL (1.0-4.8) Monocytes # (Auto) 0.7 x10^3/uL (0.0-1.1) Eosinophils # (Auto) 0.2 x10^3/uL (0.0-0.7) Basophils # (Auto) 0.1 x10^3/uL (0.0-0.2) Prothrombin Time 15.1 SEC (11.7-14.0) Prothromb Time International Ratio 1.2 (0.8-1.1) Sodium Level 135 mmol/L (136-145) Potassium Level 4.2 mmol/L (3.5-5.1) Chloride Level 95 mmol/L (98-107) Carbon Dioxide Level 26 mmol/L (21-32) Anion Gap 14 (6-14) Blood Urea Nitrogen 85 mg/dL (8-26) Creatinine 8.4 mg/dL (0.7-1.3) Estimated GFR (Cockcroft-Gault) 8.1 BUN/Creatinine Ratio 10 (6-20) Glucose Level 156 mg/dL (70-99) Calcium Level 7.8 mg/dL (8.5-10.1) Total Bilirubin 0.7 mg/dL (0.2-1.0) Aspartate Amino Transf (AST/SGOT) 21 U/L (15-37) Alanine Aminotransferase (ALT/SGPT) 21 U/L (16-63) Alkaline Phosphatase 117 U/L (46-116) Troponin I Quantitative 0.136 ng/mL (0.000-0.055) NQ-Fme-T-Type Natriuretic Peptide > 40985 pg/mL (0-124) Total Protein 7.2 g/dL (6.4-8.2) Albumin 3.0 g/dL (3.4-5.0) Albumin/Globulin Ratio 0.7 (1.0-1.7) Images Images PATIENT: FRANKIE GARCIA TACCOUNT: [id number] : 1965 LOCATION: ER AGE: 54 SEX: M EXAM STATUS: REG ER ORD. PHYSICIAN: VALORIE ALICIA DO REASON: sob PROCEDURE: CHEST AP ONLY AP portable chest radiograph 10/25/2019 Clinical History: Shortness of breath. Pleural effusion. An AP erect portable digital radiograph of the chest was obtained. Comparison study is dated 08/08/2019. Anterior plate and bone screws along with pedicle screws and stabilizing rods are seen throughout the visualized main and lower cervical vertebrae, unchanged. The cardiac silhouette is mildly enlarged. The thoracic aorta is tortuous. There is a moderate to large sized right pleural effusion which has increased since the previous study. Right lower lobe atelectasis is noted. Mild to moderate congestive changes are seen involving both lungs. No pneumothorax is seen. The osseous structures are unchanged. Impression: 1. Moderate to large sized right pleural effusion which is increased since previous study. Right lower lobe atelectasis is noted. 2. Mild to moderate congestive changes. Electronically signed by: Eric Reynoso MD (10/25/2019 2:34 AM) [id number] DICTATED and SIGNED BY: ERIC REYNOSO MD DATE: 10/25/19 0234 VTE Prophylaxis Ordered VTE Prophylaxis Devices: No VTE Pharmacological Prophylaxi: Yes Assessment/Plan Assessment/Plan Impression: 1. Moderate to large sized right pleural effusion which is increased since previous study. Right lower lobe atelectasis is noted. 2. Mild to moderate congestive changes. 3.Respiratory failure - ACUTE HYPOXIC 4. History of coronary artery disease, 5. ACUTE HYPERTENSIVE URGENCY 6. Asthma. 7. End-stage renal disease. ON DIALYSIS 8. Hypertension. 9. Anemia. 10. Acute on chronic systolic and diastolic heart failure. 11. Noncompliance. plan admit IR FOR THORACENTESIS BP CONTROL PULM CONSULT CARDIOLOGY CONSULT O2 SUPPORT nephrology consult 74 MIN pt exam, chart review, > 50% of time spent with exam, chart review, pt care coordination D/W RN Justicifation of Admission Dx: Justifications for Admission: Justification of Admission Dx: Yes Chronic Renal Failure: Significant Resp Findings ROSALEE DAVIES MD Oct 25, 2019 09:10
[2019-10-25] MEDS ORDERED: LIDOCAINE WITH 8.4% SOD BICARB 3 ML DISP.SYRIN. INJ ONE (09:30)
--- NOTE | 2019-10-25 10:19 | RAD ---
AP chest. HISTORY: Postthoracentesis. AP view was taken of the chest. There's been a decrease in the right pleural effusion postthoracentesis. There is a moderate residual effusion. Heart is enlarged. There is no pneumothorax. IMPRESSION: 1. Decreased right pleural effusion. 2. No pneumothorax. 3. No other change. Electronically signed by: Carlos Enrique Barbosa MD (10/25/2019 10:17 AM) [id number]
--- NOTE | 2019-10-25 11:43 | RAD ---
Ultrasound-guided right-sided thoracentesis 10/25/2019 9:39 AM Indication: sob, RIGHT PLEURAL EFFUSION Procedure: Informed consent was obtained. A timeout procedure was performed. Sonographic evaluation of the right chest was performed demonstrating moderate pleural effusion. The right posterior chest was prepped and draped in sterile fashion. 1% lidocaine without epinephrine was administered for local anesthesia. Real-time ultrasonographic guidance was used in passing a 5 Italian Yueh catheter into the right pleural space. 1.7 L of serosanguineous pleural fluid was removed. Samples of fluid were sent to the lab for further evaluation per ordering physician request. The catheter was removed and pressure held to achieve hemostasis. A sterile dressing was applied. No immediate complications were identified. The patient tolerated the procedure well. Impression: Right sided ultrasound-guided thoracentesis
[2019-10-25 16:00] VITALS: BP 178/117
--- NOTE | 2019-10-25 16:43 | PDOC2 ---
ELKIN SMITH ABLE SEAMAN 10/25/19 1643: CARDIAC CONSULT DATE OF CONSULT Date of Consult DATE: 10/25/19 TIME: 16:27 REASON FOR CONSULT Reason for Consult: CHF REFERRING PHYSICIAN Referring Physician: Dr. Roberson SOURCE Source: Chart review, Patient HISTORY OF PRESENT ILLNESS HISTORY OF PRESENT ILLNESS This is a 54 yo male who presented secondary to shortness of breath. PAST MEDICAL HISTORY Past Medical History Cardiovascular: HTN, CHF (diastolic) Pulmonary: Asthma, pleural effusion CENTRAL NERVOUS SYSTEM: CVA, Peripheral neuropathy GI: No pertinent hx Heme/Onc: Anemia NOS Hepatobiliary: No pertinent hx Psych: Anxiety Musculoskeletal: Osteoarthritis Rheumatologic: No pertinent hx Infectious disease: No pertinent hx ENT: No pertinent hx Renal/: Chronic renal failure (ESRD on HD, previously on PD Endocrine: No pertinent hx Dermatology: No pertinent hx PAST SURGICAL HISTORY Past Surgical History Other (lumbar fusion, L dialysis fistula placement, corneal transplant, paracentesis) FAMILY HISTORY Family History Heart Disease, Hypertension, Stroke SOCIAL HISTORY Social History Smoke: No ALCOHOL: none Drugs: None Lives: with Family CURRENT MEDICATIONS CURRENT MEDICATIONS Current Medications Medications (Trade) Dose Ordered Sig/Sascha Route PRN Reason Start Time Stop Time Status Last Admin Dose Admin Hydralazine HCl (Apresoline Inj) 10 mg 1X ONCE IVP 10/25/19 06:00 10/25/19 06:01 DC 10/25/19 05:58 Hydralazine HCl (Apresoline Inj) 10 mg 1X ONCE IVP 10/25/19 08:30 10/25/19 08:33 DC 10/25/19 08:47 Lidocaine HCl (Buffered Lidocaine 1%) 6 ml 1X ONCE INJ 10/25/19 09:30 10/25/19 09:31 DC 10/25/19 09:34 Hydralazine HCl (Apresoline Inj) 10 mg 1X ONCE IVP 10/25/19 10:15 10/25/19 10:17 DC 10/25/19 10:16 ALLERGIES ALLERGIES: Coded Allergies: lisinopril (Verified Allergy, Severe, Swelling, 01/18/19) codeine (Verified Allergy, Intermediate, itching, 01/18/19) TAKES LORTAB AT HOME IN THE PAST ROS Review of System 14 point ROS conducted with pertinent positives noted above in HPI PHYSICAL EXAM General: Alert, Oriented X3, Cooperative, No acute distress, Other (drowsy ) HEENT: Atraumatic, Mucous membr. moist/pink Lungs: Other (diminished ) Heart: Regular rate Abdomen: Soft, No tenderness Extremities: No edema, Normal pulses Skin: No significant lesion Neuro: Normal speech, Sensation intact Psych/Mental Status: Mental status NL, Other (drowsy ) MUSCULOSKELETAL: Osteoarthritic changes both hands VITALS/I&O VITALS/I&O: Vital Signs Date Time Temp Pulse Resp B/P (MAP) Pulse Ox O2 Delivery O2 Flow Rate FiO2 10/25/19 15:26 78 173/112 (132) 95 Nasal Cannula 2.0 10/25/19 00:55 98.2 22 98.2 LABS Lab: Laboratory Tests Test 10/25/19 01:08 White Blood Count 5.6 x10^3/uL (4.0-11.0) Red Blood Count 4.22 x10^6/uL (4.30-5.70) L Hemoglobin 12.4 g/dL (13.0-17.5) L Hematocrit 36.8 % (39.0-53.0) L Mean Corpuscular Volume 87 fL (79-100) Mean Corpuscular Hemoglobin 29 pg (25-35) Mean Corpuscular Hemoglobin Concent 34 g/dL (31-37) Red Cell Distribution Width 18.7 % (11.5-14.5) H Platelet Count 215 x10^3/uL (140-400) Neutrophils (%) (Auto) 70 % (31-73) Lymphocytes (%) (Auto) 10 % (24-48) L Monocytes (%) (Auto) 13 % (0-9) H Eosinophils (%) (Auto) 4 % (0-3) H Basophils (%) (Auto) 2 % (0-3) Neutrophils # (Auto) 3.9 x10^3/uL (1.8-7.7) Lymphocytes # (Auto) 0.6 x10^3/uL (1.0-4.8) L Monocytes # (Auto) 0.7 x10^3/uL (0.0-1.1) Eosinophils # (Auto) 0.2 x10^3/uL (0.0-0.7) Basophils # (Auto) 0.1 x10^3/uL (0.0-0.2) Prothrombin Time 15.1 SEC (11.7-14.0) H Prothrombin Time INR 1.2 (0.8-1.1) H Sodium Level 135 mmol/L (136-145) L Potassium Level 4.2 mmol/L (3.5-5.1) Chloride Level 95 mmol/L (98-107) L Carbon Dioxide Level 26 mmol/L (21-32) Anion Gap 14 (6-14) Blood Urea Nitrogen 85 mg/dL (8-26) H Creatinine 8.4 mg/dL (0.7-1.3) H Estimated GFR (Cockcroft-Gault) 8.1 BUN/Creatinine Ratio 10 (6-20) Glucose Level 156 mg/dL (70-99) H Calcium Level 7.8 mg/dL (8.5-10.1) L Total Bilirubin 0.7 mg/dL (0.2-1.0) Aspartate Amino Transferase (AST) 21 U/L (15-37) Alanine Aminotransferase (ALT) 21 U/L (16-63) Alkaline Phosphatase 117 U/L (46-116) H Troponin I Quantitative 0.136 ng/mL (0.000-0.055) BR-Uxu-D-Type Natriuretic Peptide > 56297 pg/mL (0-124) H Total Protein 7.2 g/dL (6.4-8.2) Albumin 3.0 g/dL (3.4-5.0) L Albumin/Globulin Ratio 0.7 (1.0-1.7) L Laboratory Tests 10/25/19 01:08 Laboratory Tests 10/25/19 01:08 ECHOCARDIOGRAM ECHOCARDIOGRAM <Conclusion> The left ventricle is normal size. Left ventricle systolic function is low normal. The Ejection Fraction is 50-55%. There is a flattened septum consistent with right ventricle pressure overload. There is moderate concentric left ventricular hypertrophy. The right ventricle is mildly dilated. There is no significant aortic valvular stenosis. Doppler and Color Flow revealed mild aortic regurgitation. Doppler and Color-flow revealed trace mitral regurgitation. Doppler and Color Flow revealed trace tricuspid regurgitation. The PA pressure was estimated at 34 mmHg. Doppler and Color Flow revealed mild pulmonic valvular regurgitation. The ascending aorta is moderately dilated at 3.8 cm. DATE: 10/30/18 7857 STRESS TEST STRESS TEST Conclusion 1. No evidence of EKG changes with stress testing. 2. Normal perfusion at stress/rest. 3. Low risk study. 4. EF > 60%. DATE: 04/29/17 1352 HEART CATH HEART CATH CORONARY ANGIOGRAPHY: LM is a large caliber vessel with normal angiographic appearance. LAD is a large caliber vessel with normal angiographic appearance. Ramus is a moderate caliber vessel with normal angiographic appearance. LCx is a moderate caliber non-dominant vessel with normal angiographic appearance. OM1 is a moderate caliber vessel with normal angiographic appearance. RCA is a large caliber dominant vessel with normal angiographic appearance. RPDA is a moderate caliber vessels with normal angiographic appearance. Conclusion 1. No significant obstructive coronary artery disease. 2. Elevated left sided filling pressures. Recommendations Aggressive Medical Therapy DATE: 05/10/17 1447 ASSESSMENT/PLAN ASSESSMENT/PLAN 1. Acute respiratory failure with recurrent large right pleural effusion. s/p thoracentesis 2. Acute on chronic diastolic heart failure in the setting of uncontrolled HTN 3. Accelerated hypertension; remains elevated 4. Mild troponin elevation: this is chronic, 0.136. H/o chronic mild troponin elevation. No acute EKG changes, arrhythmias. Most probably demand mediated. Cath 04/29 without any significant CAD. 5. ESRD on HD 6. Hyperlipidemia: Continue statin therapy 7. Noncompliance Recommendations Resume home BP regimen ASA, statin therapy Fluid offloading via HD Encouraged medical compliance Outpatient echo to assess LV systolic function . Supportive care Patient seen and examined. Agree with HAM FACER's assessment and plan. s/p thoracentesis with improvement in symptoms. Acute on chronic diastolic heart failure better compensated. Blood pressure better controlled. Slight troponin elevation probably demand ischemia. Continue hemodialysis per nephrology team. ANA HOOKER MD 10/25/192124: CARDIAC CONSULT ASSESSMENT/PLAN ASSESSMENT/PLAN Patient seen and examined. Agree with HAM FACER's assessment and plan. s/p thoracentesis with improvement in symptoms Continue fluid removal with HD for ac on chr diastolic HF Slight trop elevation prob demand ischemia Change BB to labetalol for better BP control Thank you for your consultation ELKIN SMITH APRN Oct 25, 2019 16:43 ANA HOOKER MD Oct 25, 2019 21:25
[2019-10-25] MEDS ORDERED: CARVEDILOL 6.25 MG TABLET. PO SCH (17:00)
[2019-10-25] MEDS ORDERED: IPRATRPIUM/ALBUTEROL 0.5/2.5MG 3 ML NEBU. NEB SCH (17:15)
[2019-10-25] MEDS ORDERED: DOCUSATE SODIUM 100 MG CAPSULE. PO PRN ×2 (17:15→17:30)
[2019-10-25] MEDS ORDERED: 0.9 % SODIUM CHLORIDE 10 ML DISP.SYRIN. IV PRN (17:15)
[2019-10-25] MEDS ORDERED: LORazepam 0.5 MG TABLET PO PRN (17:15)
[2019-10-25] MEDS ORDERED: guaiFENesin ORAL 200 MG/10 ML LIQUID. PO PRN (17:15)
[2019-10-25] MEDS ORDERED: ONDANSETRON PF 4 MG/2 ML VIAL. IV PRN (17:15)
[2019-10-25] MEDS ORDERED: ALBUTEROL SULFATE 2.5 MG/3 ML NEBU. NEB PRN (17:30)
[2019-10-25] MEDS ORDERED: POLYETHYLENE GLYCOL 3350 17 GM PACKET. PO PRN (17:30)
[2019-10-25] MEDS: hydrOXYzine 10 MG TABLET PO PRN (18:11)
[2019-10-25 18:34] VITALS: BP 157/102
[2019-10-25] MEDS: ATORVASTATIN CALCIUM 10 MG TABLET. PO SCH (20:26)
[2019-10-25 22:41] VITALS: BP 171/99
[2019-10-26] VITALS (7 sets, daily range): BP systolic 91–231; BP diastolic 56–150
[2019-10-26] MEDS: hydrOXYzine 10 MG TABLET PO PRN (02:03)
[2019-10-26 04:12] LABS: BASO # 0.1 x10^3/uL (0.0-0.2); BASO % 1 % (0-3); EOS # 0.3 x10^3/uL (0.0-0.7); EOS % 6 % (0-3); HEMATOCRIT 39.7 % (39.0-53.0); HEMOGLOBIN 13.2 g/dL (13.0-17.5); LYMPH # 0.5 x10^3/uL (1.0-4.8); LYMPH % 10 % (24-48); MEAN CORPUSCULAR HEMOGLOBIN 29 pg (25-35); MEAN CORPUSCULAR HGB CONC 33 g/dL (31-37); MEAN CORPUSCULAR VOLUME 88 fL (79-100); MONO # 0.6 x10^3/uL (0.0-1.1); MONO % 11 % (0-9); NEUT # 3.7 x10^3/uL (1.8-7.7); NEUT % 72 % (31-73); PLATELET COUNT 237 x10^3/uL (140-400); RED BLOOD COUNT 4.54 x10^6/uL (4.30-5.70); RED CELL DISTRIBUTION WIDTH 19.3 % (11.5-14.5); WHITE BLOOD COUNT 5.1 x10^3/uL (4.0-11.0)
[2019-10-26 04:34] LABS: ALBUMIN 3.1 g/dL (3.4-5.0); CREATININE 9.1 mg/dL (0.7-1.3); GFR 7.3; PHOSPHORUS 5.8 mg/dL (2.6-4.7)
--- NOTE | 2019-10-26 05:03 | NUR ---
Pt is refusing to wear telemetry leads, stating he is allergic to the patches and he cant stop scratching himself. Patches were removed, telemetry discontinued and will continue to monitor for status changes.
[2019-10-26] MEDS: IPRATRPIUM/ALBUTEROL 0.5/2.5MG 3 ML NEBU. NEB SCH ×4 (07:27→20:14)
[2019-10-26] MEDS ORDERED: IV NORMAL SALINE 1000ML BAG 1,000 ML IV PRN ×2 (09:00→09:19)
[2019-10-26] MEDS ORDERED: ISOSORBIDE MONONITRATE ER 30 MG TAB.ER.24H PO SCH (09:00)
--- NOTE | 2019-10-26 09:00 | PDOC2 ---
CONSULT Date of Consult Date of Consult DATE: 10/26/19 TIME: 08:59 Reason for Consult Reason for Consult: ESRD Source Source: Chart review, Patient History of Present Illness Reason for Visit: 54-year-old AAM male with end-stage renal disease on dialysis Wednesday , frequent hospitalizations, presents with a chief complaint of shortness of breath and abdominal distention. Patient states symptoms have been ongoing for 1 day progressively becoming worse. Patient denies any associated chest pain, fever cough.He states he didin't miss any treatments. He thinks he went yesterday as well. Seen on HD, states he is feeling little better . Denies any N/V/D. No abdominal pain currently Past Medical History Cardiovascular: HTN Pulmonary: Asthma CENTRAL NERVOUS SYSTEM: CVA, Periperal neuropathy GI: No pertinent hx Heme/Onc: Anemia NOS Hepatobiliary: No pertinent hx Psych: Anxiety Infectious disease: No pertinent hx Renal/: Chronic renal failure Endocrine: No pertinent hx, Hyperparathyroidism Past Surgical History Past Surgical History: Hernia Repair, Other Family History Family History: Heart Disease, Hypertension, Stroke Social History <1 pack per day ALCOHOL: none Drugs: None Lives: with Family Current Medications Current Medications Current Medications Hydralazine HCl (Apresoline Inj) 10 mg 1X ONCE IVP Last administered on 10/25/19at 05:58; Start 10/25/19 at 06:00; Stop 10/25/19 at 06:01; Status DC Hydralazine HCl (Apresoline Inj) 10 mg 1X ONCE IVP Last administered on 10/25/19at 08:47; Start 10/25/19 at 08:30; Stop 10/25/19 at 08:33; Status DC Hydralazine HCl (Apresoline Inj) 10 mg PRN Q4HRS PRN IVP ELEVATED BP, SEE COMMENTS Last administered on 10/26/19at 03:03; Start 10/25/19 at 08:30 Lidocaine HCl (Buffered Lidocaine 1%) 3 ml STK-MED ONCE .ROUTE ; Start 10/25/19 at 09:10; Stop 10/25/19 at 09:10; Status DC Lidocaine HCl (Buffered Lidocaine 1%) 6 ml 1X ONCE INJ Last administered on 10/25/19at 09:34; Start 10/25/19 at 09:30; Stop 10/25/19 at 09:31; Status DC Hydralazine HCl (Apresoline Inj) 10 mg 1X ONCE IVP Last administered on 10/25/19at 10:16; Start 10/25/19 at 10:15; Stop 10/25/19 at 10:17; Status DC Amlodipine Besylate (Norvasc) 10 mg DAILY PO ; Start 10/26/19 at 09:00 Aspirin (Ecotrin) 325 mg DAILYWBKFT PO ; Start 10/26/19 at 08:00 Atorvastatin Calcium (Lipitor) 10 mg QHS PO Last administered on 10/25/19at 20:26; Start 10/25/19 at 21:00 Carvedilol (Coreg) 6.25 mg BIDWMEALS PO Last administered on 10/25/19at 18:11; Start 10/25/19 at 17:00; Stop 10/25/19 at 21:30; Status DC Hydralazine HCl (Apresoline) 50 mg BID PO Last administered on 10/25/19at 20:26; Start 10/25/19 at 21:00 Isosorbide Mononitrate (Imdur) 30 mg DAILY PO ; Start 10/26/19 at 09:00 Sodium Chloride (Normal Saline Flush) 3 ml QSHIFT PRN IV AFTER MEDS AND BLOOD DRAWS; Start 10/25/19 at 17:15 Ondansetron HCl (Zofran) 4 mg PRN Q4HRS PRN IV NAUSEA/VOMITING; Start 10/25/19 at 17:15 Acetaminophen (Tylenol) 650 mg PRN Q4HRS PRN PO TEMP OVER 100.4F OR MILD PAIN; Start 10/25/19 at 17:15 Docusate Sodium (Colace) 100 mg PRN BID PRN PO HARD STOOLS; Start 10/25/19 at 17:15 Albuterol/ Ipratropium (Duoneb) 3 ml Q4H NEB Last administered on 10/25/19at 20:46; Start 10/25/19 at 17:15; Stop 10/25/19 at 21:34; Status DC Guaifenesin (Robitussin) 200 mg PRN Q4HRS PRN PO COUGH; Start 10/25/19 at 17:15 Lorazepam (Ativan) 0.5 mg PRN Q4HRS PRN PO ANXIETY / AGITATION; Start 10/25/19 at 17:15 Albuterol Sulfate (Ventolin Neb Soln) 2.5 mg PRN Q4HRS PRN NEB SHORTNESS OF BREATH; Start 10/25/19 at 17:30 Calcium/Vitamin D (Oscal D 500mg/ 200uts) 1 tab BIDWMEALS PO ; Start 10/26/19 at 08:00 Docusate Sodium (Colace) 100 mg PRN DAILY PRN PO CONSTIPATION; Start 10/25/19 at 17:30 Duloxetine HCl (Cymbalta) 30 mg DAILY PO ; Start 10/26/19 at 09:00 Polyethylene Glycol (miraLAX PACKET) 17 gm PRN DAILY PRN PO CONSTIPATION; Start 10/25/19 at 17:30 Hydroxyzine HCl (Atarax) 10 mg PRN Q6HRS PRN PO ITCHING Last administered on 10/26/19at 02:03; Start 10/25/19 at 17:30 Labetalol HCl (Trandate) 200 mg BID PO ; Start 10/26/19 at 09:00 Albuterol/ Ipratropium (Duoneb) 3 ml RTQID NEB Last administered on 10/26/19at 07:27; Start 10/26/19 at 08:00 Active Scripts Active Hydrocodone-Apap 5-325 (Hydrocodone Bit/Acetaminophen) 1 Tab Tablet 1 Tab PO PRN Q6HRS PRN 6 Days Isosorbide Mononitrate Er (Isosorbide Mononitrate) 30 Mg Tab.er.24h 30 Mg PO DAILY 30 Days Amlodipine Besylate 10 Mg Tablet 10 Mg PO DAILY 30 Days Coreg (Carvedilol) 6.25 Mg Tablet 6.25 Mg PO BIDWMEALS 30 Days Atorvastatin Calcium 10 Mg Tablet 10 Mg PO QHS 30 Days Colace (Docusate Sodium) 100 Mg Capsule 100 Mg PO DAILY PRN Polyethylene Glycol 3350 17 Gm Powd.pack 17 Gm PO DAILY PRN Proair Hfa (Albuterol Sulfate) 8.5 Gm Hfa.aer.ad 2.5 Mg NEB PRN Q4HRS PRN 30 Days Cetirizine Hcl 10 Mg Tablet 10 Mg PO DAILY 30 Days Oyster Shell 500 Mg + Vit D Tb (Calcium Carbonate/Vitamin D3) 1 Each Tablet 1 Tab PO BIDWMEALS 30 Days Aspirin Ec (Aspirin) 325 Mg Tablet. 325 Mg PO DAILYWBKFT 30 Days Reported Cymbalta (Duloxetine Hcl) 30 Mg Capsule. 1 Cap PO DAILY Hydralazine Hcl 50 Mg Tablet 1 Tab PO BID Allergies Allergies: Coded Allergies: lisinopril (Verified Allergy, Severe, Swelling, 01/18/19) codeine (Verified Allergy, Intermediate, itching, 01/18/19) TAKES LORTAB AT HOME IN THE PAST ROS Review of System Per HPI, rest ROS is negative Physical Exam Physical Exam GENERAL: NAD HEENT: OM moist NECK: Supple. LUNGS: Diminished breath sounds on the right side. CARDIOVASCULAR: S1, S2. ABDOMEN: firmness in the middle abdomen . : No Zamorano EXTREMITIES: no edema. NEURO- Grossly Normal Vital Signs Vital Signs Date Time Temp Pulse Resp B/P (MAP) Pulse Ox O2 Delivery O2 Flow Rate FiO2 10/26/19 07:27 Room Air 10/26/19 07:00 98.5 80 18 194/125 (148) 90 2.0 98.5 Assessment & Plan ESRD - On HD MWF, transitioned from PD to HD Dialysis today 2/2 SOB and High BP , he reports Compliance with HD but on reviewing his labs doubt it BUN of 100 Seen on HD , tolerating well, continue as ordered, Miguel HUDSON Acute respiratory failure with recurrent large right pleural effusion. s/p thoracentesis on 10/24 1.7 Lt removed Hx of Recurrent right pleural effusion and Thoracentesis Acute on chronic diastolic heart failure in the setting of uncontrolled HTN Accelerated hypertension; remains elevated - Non compliance with HD and meds Cath 04/29 without any significant CAD. Noncompliance Labs Labs Laboratory Tests Test 10/25/19 01:08 10/25/19 17:35 10/26/19 03:45 White Blood Count 5.6 x10^3/uL (4.0-11.0) 5.1 x10^3/uL (4.0-11.0) Red Blood Count 4.22 x10^6/uL (4.30-5.70) 4.54 x10^6/uL (4.30-5.70) Hemoglobin 12.4 g/dL (13.0-17.5) 13.2 g/dL (13.0-17.5) Hematocrit 36.8 % (39.0-53.0) 39.7 % (39.0-53.0) Mean Corpuscular Volume 87 fL (79-100) 88 fL (79-100) Mean Corpuscular Hemoglobin 29 pg (25-35) 29 pg (25-35) Mean Corpuscular Hemoglobin Concent 34 g/dL (31-37) 33 g/dL (31-37) Red Cell Distribution Width 18.7 % (11.5-14.5) 19.3 % (11.5-14.5) Platelet Count 215 x10^3/uL (140-400) 237 x10^3/uL (140-400) Neutrophils (%) (Auto) 70 % (31-73) 72 % (31-73) Lymphocytes (%) (Auto) 10 % (24-48) 10 % (24-48) Monocytes (%) (Auto) 13 % (0-9) 11 % (0-9) Eosinophils (%) (Auto) 4 % (0-3) 6 % (0-3) Basophils (%) (Auto) 2 % (0-3) 1 % (0-3) Neutrophils # (Auto) 3.9 x10^3/uL (1.8-7.7) 3.7 x10^3/uL (1.8-7.7) Lymphocytes # (Auto) 0.6 x10^3/uL (1.0-4.8) 0.5 x10^3/uL (1.0-4.8) Monocytes # (Auto) 0.7 x10^3/uL (0.0-1.1) 0.6 x10^3/uL (0.0-1.1) Eosinophils # (Auto) 0.2 x10^3/uL (0.0-0.7) 0.3 x10^3/uL (0.0-0.7) Basophils # (Auto) 0.1 x10^3/uL (0.0-0.2) 0.1 x10^3/uL (0.0-0.2) Prothrombin Time 15.1 SEC (11.7-14.0) Prothromb Time International Ratio 1.2 (0.8-1.1) Sodium Level 135 mmol/L (136-145) 135 mmol/L (136-145) Potassium Level 4.2 mmol/L (3.5-5.1) 4.0 mmol/L (3.5-5.1) Chloride Level 95 mmol/L (98-107) 95 mmol/L (98-107) Carbon Dioxide Level 26 mmol/L (21-32) 24 mmol/L (21-32) Anion Gap 14 (6-14) 16 (6-14) Blood Urea Nitrogen 85 mg/dL (8-26) 100 mg/dL (8-26) Creatinine 8.4 mg/dL (0.7-1.3) 9.1 mg/dL (0.7-1.3) Estimated GFR (Cockcroft-Gault) 8.1 7.3 BUN/Creatinine Ratio 10 (6-20) Glucose Level 156 mg/dL (70-99) 162 mg/dL (70-99) Calcium Level 7.8 mg/dL (8.5-10.1) 8.0 mg/dL (8.5-10.1) Total Bilirubin 0.7 mg/dL (0.2-1.0) Aspartate Amino Transf (AST/SGOT) 21 U/L (15-37) Alanine Aminotransferase (ALT/SGPT) 21 U/L (16-63) Alkaline Phosphatase 117 U/L (46-116) Troponin I Quantitative 0.136 ng/mL (0.000-0.055) 0.102 ng/mL (0.000-0.055) UB-Xyt-X-Type Natriuretic Peptide > 97530 pg/mL (0-124) Total Protein 7.2 g/dL (6.4-8.2) Albumin 3.0 g/dL (3.4-5.0) 3.1 g/dL (3.4-5.0) Albumin/Globulin Ratio 0.7 (1.0-1.7) Phosphorus Level 5.8 mg/dL (2.6-4.7) Laboratory Tests Test 10/25/19 17:35 10/26/19 03:45 Troponin I Quantitative 0.102 ng/mL (0.000-0.055) White Blood Count 5.1 x10^3/uL (4.0-11.0) Red Blood Count 4.54 x10^6/uL (4.30-5.70) Hemoglobin 13.2 g/dL (13.0-17.5) Hematocrit 39.7 % (39.0-53.0) Mean Corpuscular Volume 88 fL (79-100) Mean Corpuscular Hemoglobin 29 pg (25-35) Mean Corpuscular Hemoglobin Concent 33 g/dL (31-37) Red Cell Distribution Width 19.3 % (11.5-14.5) Platelet Count 237 x10^3/uL (140-400) Neutrophils (%) (Auto) 72 % (31-73) Lymphocytes (%) (Auto) 10 % (24-48) Monocytes (%) (Auto) 11 % (0-9) Eosinophils (%) (Auto) 6 % (0-3) Basophils (%) (Auto) 1 % (0-3) Neutrophils # (Auto) 3.7 x10^3/uL (1.8-7.7) Lymphocytes # (Auto) 0.5 x10^3/uL (1.0-4.8) Monocytes # (Auto) 0.6 x10^3/uL (0.0-1.1) Eosinophils # (Auto) 0.3 x10^3/uL (0.0-0.7) Basophils # (Auto) 0.1 x10^3/uL (0.0-0.2) Sodium Level 135 mmol/L (136-145) Potassium Level 4.0 mmol/L (3.5-5.1) Chloride Level 95 mmol/L (98-107) Carbon Dioxide Level 24 mmol/L (21-32) Anion Gap 16 (6-14) Blood Urea Nitrogen 100 mg/dL (8-26) Creatinine 9.1 mg/dL (0.7-1.3) Estimated GFR (Cockcroft-Gault) 7.3 Glucose Level 162 mg/dL (70-99) Calcium Level 8.0 mg/dL (8.5-10.1) Phosphorus Level 5.8 mg/dL (2.6-4.7) Albumin 3.1 g/dL (3.4-5.0) Review All relevant outside records, renal labs, imaging studies, telemetry/EKG's were reviewed. Images Images 1. Moderate to large sized right pleural effusion which is increased since previous study. Right lower lobe atelectasis is noted. 2. Mild to moderate congestive changes. MAGDIEL VOGEL MD Oct 26, 2019 09:00
[2019-10-26] MEDS ORDERED: 0.9 % SODIUM CHLORIDE 10 ML DISP.SYRIN. IV PRN ×2 (09:30)
[2019-10-26] MEDS ORDERED: DIALYSIS PATIENT. MC PRN ×2 (09:30)
[2019-10-26] MEDS ORDERED: ALBUMIN HUMAN 25% 200 ML IV PRN (09:30)
--- NOTE | 2019-10-26 12:44 | NUR ---
SS following for discharge planning. SS reviewed pt chart and discussed with pt RN. Pt is from home. Pt discharged from [facility] [place], [place] in September of 2019 and returned to home with a friend. Pt now has outpatient dialysis at [facility] ; fax [phone], Wednesday, Wednesday, and Wednesday. Possible discharge to home after dialysis. SS will continue to follow for discharge planning.
[2019-10-26] MEDS: ASPIRIN ENTERIC COATED 325 MG TABLET.DR. PO SCH (14:25)
[2019-10-26] MEDS: DULoxetine HCL 30 MG CAPSULE.DR PO SCH (14:26)
[2019-10-26] MEDS: LABETALOL HCL 200 MG TABLET PO SCH ×2 (14:26→23:39)
[2019-10-26] MEDS: CALCIUM CARB/VIT D3 500/200 TABLET. PO SCH ×2 (14:26→17:28)
[2019-10-26] MEDS: amLODIPine BESYLATE 10 MG TABLET PO SCH (14:27)
--- NOTE | 2019-10-26 15:12 | PDOC3 ---
Discharge Summary Visit Information Date of Admission: Oct 25, 2019 Date of Discharge: Oct 26, 2019 Brief Hospital Course Allergies Allergies Coded Allergies Type Severity Reaction Last Updated Verified lisinopril Allergy Severe Swelling 01/18/19 Yes codeine Allergy Intermediate itching 01/18/19 Yes Vital Signs GENERAL: No apparent distress. Alert and oriented. HEENT: Head normocephalic, atraumatic. NECK: Supple LUNGS: Clear to auscultation. HEART: RRR, S1, S2 present, pulses intact ABDOMEN: Soft, positive bowel sounds. EXTREMITIES: No cyanosis or edema. NEUROLOGIC: Normal speech, normal tone PSYCHIATRIC: Normal affect, normal mood. SKIN: No ulceration. Vital Signs Date Time Temp Pulse Resp B/P (MAP) Pulse Ox O2 Delivery O2 Flow Rate FiO2 10/26/19 14:38 98.0 77 18 231/150 (177) 99 Nasal Cannula 2.0 98.0 Lab Results Laboratory Tests Test 10/25/19 01:08 10/25/19 17:35 10/26/19 03:45 White Blood Count 5.6 x10^3/uL (4.0-11.0) 5.1 x10^3/uL (4.0-11.0) Red Blood Count 4.22 x10^6/uL (4.30-5.70) 4.54 x10^6/uL (4.30-5.70) Hemoglobin 12.4 g/dL (13.0-17.5) 13.2 g/dL (13.0-17.5) Hematocrit 36.8 % (39.0-53.0) 39.7 % (39.0-53.0) Mean Corpuscular Volume 87 fL (79-100) 88 fL (79-100) Mean Corpuscular Hemoglobin 29 pg (25-35) 29 pg (25-35) Mean Corpuscular Hemoglobin Concent 34 g/dL (31-37) 33 g/dL (31-37) Red Cell Distribution Width 18.7 % (11.5-14.5) 19.3 % (11.5-14.5) Platelet Count 215 x10^3/uL (140-400) 237 x10^3/uL (140-400) Neutrophils (%) (Auto) 70 % (31-73) 72 % (31-73) Lymphocytes (%) (Auto) 10 % (24-48) 10 % (24-48) Monocytes (%) (Auto) 13 % (0-9) 11 % (0-9) Eosinophils (%) (Auto) 4 % (0-3) 6 % (0-3) Basophils (%) (Auto) 2 % (0-3) 1 % (0-3) Neutrophils # (Auto) 3.9 x10^3/uL (1.8-7.7) 3.7 x10^3/uL (1.8-7.7) Lymphocytes # (Auto) 0.6 x10^3/uL (1.0-4.8) 0.5 x10^3/uL (1.0-4.8) Monocytes # (Auto) 0.7 x10^3/uL (0.0-1.1) 0.6 x10^3/uL (0.0-1.1) Eosinophils # (Auto) 0.2 x10^3/uL (0.0-0.7) 0.3 x10^3/uL (0.0-0.7) Basophils # (Auto) 0.1 x10^3/uL (0.0-0.2) 0.1 x10^3/uL (0.0-0.2) Prothrombin Time 15.1 SEC (11.7-14.0) Prothromb Time International Ratio 1.2 (0.8-1.1) Sodium Level 135 mmol/L (136-145) 135 mmol/L (136-145) Potassium Level 4.2 mmol/L (3.5-5.1) 4.0 mmol/L (3.5-5.1) Chloride Level 95 mmol/L (98-107) 95 mmol/L (98-107) Carbon Dioxide Level 26 mmol/L (21-32) 24 mmol/L (21-32) Anion Gap 14 (6-14) 16 (6-14) Blood Urea Nitrogen 85 mg/dL (8-26) 100 mg/dL (8-26) Creatinine 8.4 mg/dL (0.7-1.3) 9.1 mg/dL (0.7-1.3) Estimated GFR (Cockcroft-Gault) 8.1 7.3 BUN/Creatinine Ratio 10 (6-20) Glucose Level 156 mg/dL (70-99) 162 mg/dL (70-99) Calcium Level 7.8 mg/dL (8.5-10.1) 8.0 mg/dL (8.5-10.1) Total Bilirubin 0.7 mg/dL (0.2-1.0) Aspartate Amino Transf (AST/SGOT) 21 U/L (15-37) Alanine Aminotransferase (ALT/SGPT) 21 U/L (16-63) Alkaline Phosphatase 117 U/L (46-116) Troponin I Quantitative 0.136 ng/mL (0.000-0.055) 0.102 ng/mL (0.000-0.055) VO-Ieh-H-Type Natriuretic Peptide > 84854 pg/mL (0-124) Total Protein 7.2 g/dL (6.4-8.2) Albumin 3.0 g/dL (3.4-5.0) 3.1 g/dL (3.4-5.0) Albumin/Globulin Ratio 0.7 (1.0-1.7) Phosphorus Level 5.8 mg/dL (2.6-4.7) Laboratory Tests Test 10/25/19 17:35 10/26/19 03:45 Troponin I Quantitative 0.102 ng/mL (0.000-0.055) White Blood Count 5.1 x10^3/uL (4.0-11.0) Red Blood Count 4.54 x10^6/uL (4.30-5.70) Hemoglobin 13.2 g/dL (13.0-17.5) Hematocrit 39.7 % (39.0-53.0) Mean Corpuscular Volume 88 fL (79-100) Mean Corpuscular Hemoglobin 29 pg (25-35) Mean Corpuscular Hemoglobin Concent 33 g/dL (31-37) Red Cell Distribution Width 19.3 % (11.5-14.5) Platelet Count 237 x10^3/uL (140-400) Neutrophils (%) (Auto) 72 % (31-73) Lymphocytes (%) (Auto) 10 % (24-48) Monocytes (%) (Auto) 11 % (0-9) Eosinophils (%) (Auto) 6 % (0-3) Basophils (%) (Auto) 1 % (0-3) Neutrophils # (Auto) 3.7 x10^3/uL (1.8-7.7) Lymphocytes # (Auto) 0.5 x10^3/uL (1.0-4.8) Monocytes # (Auto) 0.6 x10^3/uL (0.0-1.1) Eosinophils # (Auto) 0.3 x10^3/uL (0.0-0.7) Basophils # (Auto) 0.1 x10^3/uL (0.0-0.2) Sodium Level 135 mmol/L (136-145) Potassium Level 4.0 mmol/L (3.5-5.1) Chloride Level 95 mmol/L (98-107) Carbon Dioxide Level 24 mmol/L (21-32) Anion Gap 16 (6-14) Blood Urea Nitrogen 100 mg/dL (8-26) Creatinine 9.1 mg/dL (0.7-1.3) Estimated GFR (Cockcroft-Gault) 7.3 Glucose Level 162 mg/dL (70-99) Calcium Level 8.0 mg/dL (8.5-10.1) Phosphorus Level 5.8 mg/dL (2.6-4.7) Albumin 3.1 g/dL (3.4-5.0) Brief Hospital Course A/P Acute respiratory failure with recurrent large right pleural effusion. s/p thoracentesis Acute on chronic diastolic heart failure in the setting of uncontrolled HTN Accelerated hypertension; remains elevated Mild troponin elevation: this is chronic, 0.136. H/o chronic mild troponin elevation. No acute EKG changes, arrhythmias. Most probably demand mediated. Cath 04/29 without any significant CAD. ESRD on HD Hyperlipidemia Noncompliance plan received HD resumed Home BP meds continue statin and ASA HD prior to dc Outpatient echo to assess LV systolic function . Supportive care seen by cards and cleared for dc no change in meds at discharge Discharge Information Condition at Discharge: Improved Disposition/Orders: D/C to Home Scheduled Amlodipine Besylate (Amlodipine Besylate) 10 Mg Tablet, 10 MG PO DAILY for htn for 30 Days, #30 Prescribed by: ROSALINO SERRANO on 01/19/192151 Last Action: Continued on 10/25/191641 by ELKIN SMITH APRN Aspirin (Aspirin Ec) 325 Mg Tablet.dr, 325 MG PO DAILYWBKFT for 30 Days, #30 Ref 2 Prescribed by: MICHAEL CALDWELL on 10/25/17 1112 Last Action: Continued on 10/25/191641 by ELKIN SMITH APRN Atorvastatin Calcium (Atorvastatin Calcium) 10 Mg Tablet, 10 MG PO QHS for chol for 30 Days, #30 Prescribed by: ROSALINO SERRANO on 12/07/18921 Last Action: Continued on 10/25/191641 by ELKIN SMITH APRN Calcium Carbonate/Vitamin D3 (Oyster Shell 500 Mg + Vit D Tb) 1 Each Tablet, 1 TAB PO BIDWMEALS for 30 Days, #60 Prescribed by: KATHERINE WARD on 01/31/18 0750 Last Action: Continued on 10/25/191718 by BAN DRIVER MD Carvedilol (Coreg ) 6.25 Mg Tablet, 6.25 MG PO BIDWMEALS for CARDIAC for 30 Days, #60 Prescribed by: DONALD PISANO on 01/03/19 175 Last Action: Continued on 10/25/191641 by ELKIN SMITH APRN Cetirizine Hcl (Cetirizine Hcl) 10 Mg Tablet, 10 MG PO DAILY for allergies for 30 Days, #30 Prescribed by: ROSALEE DAVIES MD on 10/10/181513 Last Action: HELD on 10/25/191718 by BAN DRIVER MD Duloxetine Hcl (Cymbalta) 30 Mg Capsule., 1 CAP PO DAILY for depresson, #30 Ref 5 (Reported) Entered as Reported by: RICHARD ZEPEDA on 11/29/18951 Last Action: Continued on 10/25/191718 by BAN DRIVER MD Hydralazine Hcl (Hydralazine Hcl) 50 Mg Tablet, 1 TAB PO BID for HTN, #180 Ref 3 (Reported) Entered as Reported by: RICHARD ZEPEDA on 11/29/18951 Last Action: Continued on 10/25/191641 by ELKIN SMITH APRN Isosorbide Mononitrate (Isosorbide Mononitrate Er) 30 Mg Tab.er.24h, 30 MG PO DAILY for htn for 30 Days, #30 Prescribed by: ROSALINO SERRANO on 01/19/192151 Last Action: Continued on 10/25/191641 by ELKIN SMITH APRN Scheduled PRN Albuterol Sulfate (Proair Hfa) 8.5 Gm Hfa.aer.ad, 2.5 MG NEB PRN Q4HRS PRN for SHORTNESS OF BREATH for 30 Days, #1 Prescribed by: ROSALEE DAVIES MD on 10/10/18 151 Last Action: Continued on 10/25/191718 by BAN DRIVER MD Docusate Sodium (Colace) 100 Mg Capsule, 100 MG PO DAILY PRN for CONSTIPATION, #30 Prescribed by: MICHAEL CALDWELL on 10/14/181153 Last Action: Continued on 10/25/191718 by BAN DRIVER MD Hydrocodone Bit/Acetaminophen (Hydrocodone-Apap 5-325 ) 1 Tab Tablet, 1 TAB P O PRN Q6HRS PRN for MODERATE PAIN 4-6 for 6 Days, #15 Prescribed by: MIGUELITO KEANE MD on 08/09/19 1118 Last Action: HELD on 10/25/191718 by BAN DRIVER MD Polyethylene Glycol 3350 (Polyethylene Glycol 3350) 17 Gm Powd.pack, 17 GM PO DAILY PRN for CONSTIPATION, #30 Prescribed by: MICHAEL CALDWELL on 10/14/181153 Last Action: Continued on 10/25/191718 by BAN DRIVER MD Justicifation of Admission Dx: Justifications for Admission: Justification of Admission Dx: Yes Chronic Renal Failure: Significant Resp Findings LAURA BOSS MD Oct 26, 2019 15:12
--- NOTE | 2019-10-26 15:14 | PDOC ---
ELKIN SMITH SENIOR TREASURY ANALYST 10/26/19 1514: CARDIO Progress Notes Date and Time Date of Service 10/26/19 Time of Evaluation 1144 Subjective Subjective: No Chest Pain, No shortness of breath Vitals Vitals Vital Signs Date Time Temp Pulse Resp B/P (MAP) Pulse Ox O2 Delivery O2 Flow Rate FiO2 10/26/19 14:38 98.0 77 18 231/150 (177) 99 Nasal Cannula 2.0 98.0 Weight Weight [ ] Input and Output Intake and Output Intake and Output 10/26/19 07:00 Intake Total 200 ml Balance 200 ml Intake Oral 200 ml Laboratory Labs Laboratory Tests Test 10/25/19 17:35 10/26/19 03:45 Troponin I Quantitative 0.102 ng/mL (0.000-0.055) White Blood Count 5.1 x10^3/uL (4.0-11.0) Red Blood Count 4.54 x10^6/uL (4.30-5.70) Hemoglobin 13.2 g/dL (13.0-17.5) Hematocrit 39.7 % (39.0-53.0) Mean Corpuscular Volume 88 fL (79-100) Mean Corpuscular Hemoglobin 29 pg (25-35) Mean Corpuscular Hemoglobin Concent 33 g/dL (31-37) Red Cell Distribution Width 19.3 % (11.5-14.5) Platelet Count 237 x10^3/uL (140-400) Neutrophils (%) (Auto) 72 % (31-73) Lymphocytes (%) (Auto) 10 % (24-48) Monocytes (%) (Auto) 11 % (0-9) Eosinophils (%) (Auto) 6 % (0-3) Basophils (%) (Auto) 1 % (0-3) Neutrophils # (Auto) 3.7 x10^3/uL (1.8-7.7) Lymphocytes # (Auto) 0.5 x10^3/uL (1.0-4.8) Monocytes # (Auto) 0.6 x10^3/uL (0.0-1.1) Eosinophils # (Auto) 0.3 x10^3/uL (0.0-0.7) Basophils # (Auto) 0.1 x10^3/uL (0.0-0.2) Sodium Level 135 mmol/L (136-145) Potassium Level 4.0 mmol/L (3.5-5.1) Chloride Level 95 mmol/L (98-107) Carbon Dioxide Level 24 mmol/L (21-32) Anion Gap 16 (6-14) Blood Urea Nitrogen 100 mg/dL (8-26) Creatinine 9.1 mg/dL (0.7-1.3) Estimated GFR (Cockcroft-Gault) 7.3 Glucose Level 162 mg/dL (70-99) Calcium Level 8.0 mg/dL (8.5-10.1) Phosphorus Level 5.8 mg/dL (2.6-4.7) Albumin 3.1 g/dL (3.4-5.0) Physical Exam HEENT: Neck Supple W Full Motion Chest: Symmetric LUNGS: Clear to Auscultation Heart: RRR Abdomen: Soft N/T Extremities: No Edema Neurology: alert, oriented, follow commands Assessment Assessment 1. Acute respiratory failure with recurrent large right pleural effusion. s/p thoracentesis 2. Acute on chronic diastolic heart failure in the setting of uncontrolled HTN 3. Accelerated hypertension; remains elevated 4. Mild troponin elevation: this is chronic, 0.136. H/o chronic mild troponin elevation. No acute EKG changes, arrhythmias. Most probably demand mediated. Cath 04/29 without any significant CAD. 5. ESRD on HD 6. Hyperlipidemia: Continue statin therapy 7. Noncompliance Recommendations Covert coreg labetalol Increase imdur ASA, statin therapy Fluid offloading via HD Outpatient echo to assess LV systolic function . Supportive care Justicifation of Admission Dx: Justifications for Admission: Justification of Admission Dx: Yes Chronic Renal Failure: Significant Resp Findings ANA HOOKER MD 10/26/191913: CARDIO Progress Notes Assessment Assessment Patient seen and examined. Agree with HOUSEHOLD APPLIANCES SALESPERSON's assessment and plan. s/p thoracentesis with improvement in symptoms Continue fluid removal with HD for ac on chr diastolic HF Slight trop elevation prob demand ischemia BP better controlled with labetalol ELKIN SMITH APRN Oct 26, 2019 15:14 ANA HOOKER MD Oct 26, 2019 19:14
[2019-10-26] MEDS ORDERED: ISOSORBIDE MONONITRATE ER 30 MG TAB.ER.24H PO ONE (15:30)
--- NOTE | 2019-10-26 16:04 | NUR ---
Patient called for assistance from the restroom, STEPHANI Cervantes stated that once she got him up from the toiled his legs gave out and was lowered to the floor. Mainframe Software Developer and STEPHANI Cervantes assisted patient back to bed BP checked BP checked 100/65 Pulse 80 O2 90% on room air oxygen was applied at 2L. MD Bahman notified, patient was to discharge home this shift. Discharge on hold till morning to monitor patient and BP.
--- NOTE | 2019-10-26 17:38 | NUR ---
Patients BP rechecked /. MD Da notified. Orders to recheck in 20 minutes and conchis BOYLE.
--- NOTE | 2019-10-26 17:56 | PDOC ---
PULMONARY PROGRESS NOTES Vitals Vital Signs Date Time Temp Pulse Resp B/P (MAP) Pulse Ox O2 Delivery O2 Flow Rate FiO2 10/26/19 17:28 64 16 91/60 (70) Nasal Cannula 10/26/19 14:38 98.0 99 2.0 98.0 General: Alert, No acute distress Lungs: Other Cardiovascular: S1, S2 Abdomen: Soft, Non-tender Extremities: No Edema Labs Laboratory Tests Test 10/25/19 01:08 10/25/19 17:35 10/26/19 03:45 White Blood Count 5.6 x10^3/uL (4.0-11.0) 5.1 x10^3/uL (4.0-11.0) Red Blood Count 4.22 x10^6/uL (4.30-5.70) 4.54 x10^6/uL (4.30-5.70) Hemoglobin 12.4 g/dL (13.0-17.5) 13.2 g/dL (13.0-17.5) Hematocrit 36.8 % (39.0-53.0) 39.7 % (39.0-53.0) Mean Corpuscular Volume 87 fL (79-100) 88 fL (79-100) Mean Corpuscular Hemoglobin 29 pg (25-35) 29 pg (25-35) Mean Corpuscular Hemoglobin Concent 34 g/dL (31-37) 33 g/dL (31-37) Red Cell Distribution Width 18.7 % (11.5-14.5) 19.3 % (11.5-14.5) Platelet Count 215 x10^3/uL (140-400) 237 x10^3/uL (140-400) Neutrophils (%) (Auto) 70 % (31-73) 72 % (31-73) Lymphocytes (%) (Auto) 10 % (24-48) 10 % (24-48) Monocytes (%) (Auto) 13 % (0-9) 11 % (0-9) Eosinophils (%) (Auto) 4 % (0-3) 6 % (0-3) Basophils (%) (Auto) 2 % (0-3) 1 % (0-3) Neutrophils # (Auto) 3.9 x10^3/uL (1.8-7.7) 3.7 x10^3/uL (1.8-7.7) Lymphocytes # (Auto) 0.6 x10^3/uL (1.0-4.8) 0.5 x10^3/uL (1.0-4.8) Monocytes # (Auto) 0.7 x10^3/uL (0.0-1.1) 0.6 x10^3/uL (0.0-1.1) Eosinophils # (Auto) 0.2 x10^3/uL (0.0-0.7) 0.3 x10^3/uL (0.0-0.7) Basophils # (Auto) 0.1 x10^3/uL (0.0-0.2) 0.1 x10^3/uL (0.0-0.2) Prothrombin Time 15.1 SEC (11.7-14.0) Prothromb Time International Ratio 1.2 (0.8-1.1) Sodium Level 135 mmol/L (136-145) 135 mmol/L (136-145) Potassium Level 4.2 mmol/L (3.5-5.1) 4.0 mmol/L (3.5-5.1) Chloride Level 95 mmol/L (98-107) 95 mmol/L (98-107) Carbon Dioxide Level 26 mmol/L (21-32) 24 mmol/L (21-32) Anion Gap 14 (6-14) 16 (6-14) Blood Urea Nitrogen 85 mg/dL (8-26) 100 mg/dL (8-26) Creatinine 8.4 mg/dL (0.7-1.3) 9.1 mg/dL (0.7-1.3) Estimated GFR (Cockcroft-Gault) 8.1 7.3 BUN/Creatinine Ratio 10 (6-20) Glucose Level 156 mg/dL (70-99) 162 mg/dL (70-99) Calcium Level 7.8 mg/dL (8.5-10.1) 8.0 mg/dL (8.5-10.1) Total Bilirubin 0.7 mg/dL (0.2-1.0) Aspartate Amino Transf (AST/SGOT) 21 U/L (15-37) Alanine Aminotransferase (ALT/SGPT) 21 U/L (16-63) Alkaline Phosphatase 117 U/L (46-116) Troponin I Quantitative 0.136 ng/mL (0.000-0.055) 0.102 ng/mL (0.000-0.055) RZ-Ear-J-Type Natriuretic Peptide > 81884 pg/mL (0-124) Total Protein 7.2 g/dL (6.4-8.2) Albumin 3.0 g/dL (3.4-5.0) 3.1 g/dL (3.4-5.0) Albumin/Globulin Ratio 0.7 (1.0-1.7) Phosphorus Level 5.8 mg/dL (2.6-4.7) Laboratory Tests Test 10/26/19 03:45 White Blood Count 5.1 x10^3/uL (4.0-11.0) Red Blood Count 4.54 x10^6/uL (4.30-5.70) Hemoglobin 13.2 g/dL (13.0-17.5) Hematocrit 39.7 % (39.0-53.0) Mean Corpuscular Volume 88 fL (79-100) Mean Corpuscular Hemoglobin 29 pg (25-35) Mean Corpuscular Hemoglobin Concent 33 g/dL (31-37) Red Cell Distribution Width 19.3 % (11.5-14.5) Platelet Count 237 x10^3/uL (140-400) Neutrophils (%) (Auto) 72 % (31-73) Lymphocytes (%) (Auto) 10 % (24-48) Monocytes (%) (Auto) 11 % (0-9) Eosinophils (%) (Auto) 6 % (0-3) Basophils (%) (Auto) 1 % (0-3) Neutrophils # (Auto) 3.7 x10^3/uL (1.8-7.7) Lymphocytes # (Auto) 0.5 x10^3/uL (1.0-4.8) Monocytes # (Auto) 0.6 x10^3/uL (0.0-1.1) Eosinophils # (Auto) 0.3 x10^3/uL (0.0-0.7) Basophils # (Auto) 0.1 x10^3/uL (0.0-0.2) Sodium Level 135 mmol/L (136-145) Potassium Level 4.0 mmol/L (3.5-5.1) Chloride Level 95 mmol/L (98-107) Carbon Dioxide Level 24 mmol/L (21-32) Anion Gap 16 (6-14) Blood Urea Nitrogen 100 mg/dL (8-26) Creatinine 9.1 mg/dL (0.7-1.3) Estimated GFR (Cockcroft-Gault) 7.3 Glucose Level 162 mg/dL (70-99) Calcium Level 8.0 mg/dL (8.5-10.1) Phosphorus Level 5.8 mg/dL (2.6-4.7) Albumin 3.1 g/dL (3.4-5.0) Medications Active Scripts Medications Dose Route/Sig Max Daily Dose Days Date Category Hydrocodone-Apap 5-325 (Hydrocodone Bit/Acetaminophen) 1 Tab Tablet 1 Tab PO PRN Q6HRS PRN 6 08/09/19 Rx Isosorbide Mononitrate Er (Isosorbide Mononitrate) 30 Mg Tab.er.24h 30 Mg PO DAILY 30 01/19/19 Rx Amlodipine Besylate 10 Mg Tablet 10 Mg PO DAILY 30 01/19/19 Rx Coreg (Carvedilol) 6.25 Mg Tablet 6.25 Mg PO BIDWMEALS 30 01/03/19 Rx Atorvastatin Calcium 10 Mg Tablet 10 Mg PO QHS 30 12/07/18 Rx Cymbalta (Duloxetine Hcl) 30 Mg Capsule. 1 Cap PO DAILY 11/29/18 Reported Hydralazine Hcl 50 Mg Tablet 1 Tab PO BID 11/29/18 Reported Colace (Docusate Sodium) 100 Mg Capsule 100 Mg PO DAILY PRN 10/14/18 Rx Polyethylene Glycol 3350 17 Gm Powd.pack 17 Gm PO DAILY PRN 10/14/18 Rx Proair Hfa (Albuterol Sulfate) 8.5 Gm Hfa.aer.ad 2.5 Mg NEB PRN Q4HRS PRN 30 10/10/18 Rx Cetirizine Hcl 10 Mg Tablet 10 Mg PO DAILY 30 10/10/18 Rx Oyster Shell 500 Mg + Vit D Tb (Calcium Carbonate/Vitamin D3) 1 Each Tablet 1 Tab PO BIDWMEALS 30 01/31/18 Rx Aspirin Ec (Aspirin) 325 Mg Tablet. 325 Mg PO DAILYWBKFT 30 10/25/17 Rx Impression . Full note dictated Patient after thoracentesis had hypotension. Does not feel well. He is now laying flat feels better Cardiology to make adjustments on his blood pressure medication. CHICA REGAN MD Oct 26, 2019 17:56
[2019-10-26] MEDS: ATORVASTATIN CALCIUM 10 MG TABLET. PO SCH (20:41)
[2019-10-26] MEDS: ACETAMINOPHEN 325 MG TABLET. PO PRN (20:41)
--- NOTE | 2019-10-26 21:54 | CONS ---
DATE OF CONSULTATION: 10/26/2019 ATTENDING PHYSICIAN: Dr. Roberson. CONSULTING PHYSICIAN: Chica Regan MD REASON FOR CONSULTATION: The patient is seen in pulmonary consultation at the request of Dr. Roberson for increasing shortness of air, abnormal x-ray. HISTORY OF PRESENT ILLNESS: The patient is a 54-year-old with a history of end-stage renal disease, complains of increasing shortness of breath, abdominal discomfort. No fever, chills or night sweats. This has been ongoing for several days now. The patient underwent a chest x-ray, which revealed a large right sided effusion, increased from previous studies. I was asked to see him in consultation. PAST MEDICAL HISTORY: End-stage renal disease, hypertension, hyperlipidemia, previous hernia repair. PAST SURGICAL HISTORY: Previous cervical fusion. He has had previous PD catheter, which was removed. REVIEW OF SYSTEMS: CONSTITUTIONAL: No fever or chills. EYES: No change in visual acuity. HENT: No nasal congestion or sore throat. PULMONARY: As indicated above. CARDIOVASCULAR: No chest pain. No pressure. GASTROINTESTINAL: No nausea, vomiting, diarrhea. GENITOURINARY: No dysuria or frequency. MUSCULOSKELETAL: No localized muscle aches or joint pains. SKIN: No new skin rashes. NEUROLOGIC: No headaches, diplopia or blurred vision. ALLERGIES: CODEINE AND LISINOPRIL. PHYSICAL EXAMINATION: VITAL SIGNS: Stable. O2 saturation was greater than 92%. LUNGS: Diminished breath sounds in the right. CARDIOVASCULAR: Regular rate and rhythm with S1, S2, no S3. ABDOMEN: Soft, nontender, nondistended. EXTREMITIES: No clubbing, cyanosis or edema. LABORATORY DATA: Reviewed. White count was normal. Hemoglobin and hematocrit were noted. INR was 1.2. Electrolytes were deranged. BUN elevated. Creatinine was elevated. Troponin was elevated. IMPRESSION: 1. Abnormal x-ray revealing reaccumulation of right-sided effusion, suspect transudative effusion. 2. End-stage renal disease, on hemodialysis. 3. Hyponatremia. 4. Elevated troponin. 5. Elevated BNP. 6. Progressive dyspnea secondary to above. 7. Hypertension. MEDICAL DECISION MAKING: The patient presents with complex medical decision making. He has previous multiple comorbidities. He comes in severely short of breath. He has a history of diastolic heart failure and in addition has end-stage renal disease. His electrolytes were deranged. His troponin was elevated. Our plan from a pulmonary standpoint view, I recommend thoracentesis. We will make further recommendation depending on the patient's clinical response. I do appreciate the privilege in sharing in the patient's care. CHICA REGAN MD DR: HALINA/savannah JOB#: [id number] / [id number]
[2019-10-26] MEDS ORDERED: CALCIUM CARBONATE 500 MG TAB.CHEW PO PRN (22:45)
[2019-10-27] VITALS (9 sets, daily range): BP systolic 78–188; BP diastolic 47–126
[2019-10-27] MEDS: IPRATRPIUM/ALBUTEROL 0.5/2.5MG 3 ML NEBU. NEB SCH ×4 (08:07→20:57)
[2019-10-27] MEDS ORDERED: IV NORMAL SALINE 1000ML BAG 1,000 ML IV PRN ×2 (08:10)
[2019-10-27] MEDS ORDERED: DIALYSIS PATIENT. MC PRN (08:15)
[2019-10-27] MEDS ORDERED: diphenhydrAMINE 50 MG/ML VIAL IV PRN ×2 (08:15)
[2019-10-27] MEDS: ACETAMINOPHEN 325 MG TABLET. PO PRN (08:26)
--- NOTE | 2019-10-27 10:21 | PDOC ---
SUBJECTIVE ROS Stable, states feeling better, Seen on HD OBJECTIVE Vital Signs Vital Signs Date Time Temp Pulse Resp B/P (MAP) Pulse Ox O2 Delivery O2 Flow Rate FiO2 10/27/19 08:09 100 Room Air 10/27/19 07:00 98.0 74 20 172/115 (134) 98.0 10/26/19 14:38 2.0 I & 0 Intake and Output 10/27/19 07:00 Intake Total 800 ml Output Total 400 ml Balance 400 ml Intake Oral 800 ml Output Urine Total 400 ml PHYSICAL EXAM Physical Exam GENERAL: NAD HEENT: OM moist NECK: Supple. LUNGS: Diminished breath sounds on the right side. CARDIOVASCULAR: S1, S2. ABDOMEN: firmness in the middle abdomen . : No Zamorano EXTREMITIES: no edema. NEURO- Grossly Normal DIAGNOSIS/ASSESSMENT Assessment & Plan ESRD - On HD MWF, transitioned from PD to HD Dialyzed yesterday as well 2/2 SOB and High BP Seen on HD today , tolerating well, continue as ordered, Miguel Cheatham he reports Compliance with HD but on reviewing his labs doubt it BUN of 100 at presentation Acute respiratory failure with recurrent large right pleural effusion. s/p thoracentesis on 10/24 1.7 Lt removed Hx of Recurrent right pleural effusion and Thoracentesis Acute on chronic diastolic heart failure in the setting of uncontrolled HTN Accelerated hypertension; remains elevated - Non compliance with HD and meds Cath 04/29 without any significant CAD. Noncompliance COMMENT/RELEVANT DATA Meds Current Medications Medications (Trade) Dose Ordered Sig/Sascha Start Time Stop Time Status Last Admin Dose Admin Acetaminophen (Tylenol) 650 mg PRN Q4HRS PRN 10/25/19 17:15 10/27/19 08:26 650 MG Albumin Human 200 ml @ 200 mls/hr 1X PRN PRN 10/26/19 09:30 10/26/19 15:29 DC Albuterol Sulfate (Ventolin Neb Soln) 2.5 mg PRN Q4HRS PRN 10/25/19 17:30 Albuterol/ Ipratropium (Duoneb) 3 ml RTQID 10/26/19 08:00 10/27/19 08:07 3 ML Amlodipine Besylate (Norvasc) 10 mg DAILY 10/26/19 09:00 10/26/19 14:27 10 MG Aspirin (Ecotrin) 325 mg DAILYWBKFT 10/26/19 08:00 10/26/19 14:25 325 MG Atorvastatin Calcium (Lipitor) 10 mg QHS 10/25/19 21:00 10/26/19 20:41 10 MG Calcium Carbonate/ Glycine (Tums) 500 mg PRN AFTMEALHC PRN 10/26/19 22:45 10/26/19 22:40 500 MG Calcium/Vitamin D (Oscal D 500mg/ 200uts) 1 tab BIDWMEALS 10/26/19 08:00 10/26/19 17:28 1 TAB Carvedilol (Coreg) 6.25 mg BIDWMEALS 10/25/19 17:00 10/25/19 21:30 DC 10/25/19 18:11 6.25 MG Diphenhydramine HCl (Benadryl) 25 mg 1X PRN PRN 10/27/19 08:15 10/28/19 08:14 Docusate Sodium (Colace) 100 mg PRN DAILY PRN 10/25/19 17:30 Duloxetine HCl (Cymbalta) 30 mg DAILY 10/26/19 09:00 10/26/19 14:26 30 MG Guaifenesin (Robitussin) 200 mg PRN Q4HRS PRN 10/25/19 17:15 Hydralazine HCl (Apresoline Inj) 10 mg 1X ONCE 10/25/19 10:15 10/25/19 10:17 DC 10/25/19 10:16 10 MG Hydralazine HCl (Apresoline) 100 mg BID 10/26/19 21:00 10/26/19 23:38 100 MG Hydroxyzine HCl (Atarax) 10 mg PRN Q6HRS PRN 10/25/19 17:30 10/26/19 02:03 10 MG Info (PHARMACY MONITORING -- do not chart) 1 each PRN DAILY PRN 10/27/19 08:15 Isosorbide Mononitrate (Imdur) 30 mg 1X ONCE 10/26/19 15:30 10/26/19 15:31 DC Labetalol HCl (Trandate) 200 mg BID 10/26/19 09:00 10/26/19 23:39 200 MG Lidocaine HCl (Buffered Lidocaine 1%) 6 ml 1X ONCE 10/25/19 09:30 10/25/19 09:31 DC 10/25/19 09:34 6 ML Lorazepam (Ativan) 0.5 mg PRN Q4HRS PRN 10/25/19 17:15 Ondansetron HCl (Zofran) 4 mg PRN Q4HRS PRN 10/25/19 17:15 Polyethylene Glycol (miraLAX PACKET) 17 gm PRN DAILY PRN 10/25/19 17:30 Sodium Chloride 1,000 ml @ 400 mls/hr Q2H30M PRN 10/27/19 08:10 10/27/19 20:09 Sodium Chloride (Normal Saline Flush) 10 ml 1X PRN PRN 10/26/19 09:30 10/26/19 21:00 DC Results All relevant outside records, renal labs, imaging studies, telemetry/EKG's were reviewed. Justicifation of Admission Dx: Justifications for Admission: Justification of Admission Dx: Yes Chronic Renal Failure: Significant Resp Findings MAGDIEL VOGEL MD Oct 27, 2019 10:21
--- NOTE | 2019-10-27 10:55 | NUR ---
SS following up with discharge planning. SS reviewed pt chart and discussed with pt RN. Discharge order on the chart for home with self care. Ashlee Cifuentes [place], ; fax [phone], notified of discharge.
--- NOTE | 2019-10-27 11:40 | PDOC ---
PROGRESS NOTES Chief Complaint Chief Complaint Acute respiratory failure with recurrent large right pleural effusion. s/p thoracentesis Acute on chronic diastolic heart failure in the setting of uncontrolled HTN Accelerated hypertension; remains elevated Mild troponin elevation: this is chronic, 0.136. H/o chronic mild troponin elevation. No acute EKG changes, arrhythmias. Most probably demand mediated. Cath 04/29 without any significant CAD. ESRD on HD Hyperlipidemia Noncompliance low BP following HD plan received HD, low BP following HD changed coreg to labetolol, continue norvasc. increase imdur, continue ram continue statin and ASA HD prior to dc hopefully tody Outpatient echo to assess LV systolic function . Supportive care plan for dc today if BP stable History of Present Illness History of Present Illness HD this AM Vitals Vitals Vital Signs Date Time Temp Pulse Resp B/P (MAP) Pulse Ox O2 Delivery O2 Flow Rate FiO2 10/27/19 08:09 100 Room Air 10/27/19 07:00 98.0 74 20 172/115 (134) 98.0 10/26/19 14:38 2.0 Physical Exam General: Alert, Oriented X3, Cooperative Heart: Regular rate Lungs: Other Abdomen: Soft Extremities: No cyanosis Skin: No significant lesion Comment Review of Relevant I have reviewed the following items benjamin (where applicable) has been applied. Labs Laboratory Tests Test 10/25/19 17:35 10/26/19 03:45 Troponin I Quantitative 0.102 ng/mL (0.000-0.055) White Blood Count 5.1 x10^3/uL (4.0-11.0) Red Blood Count 4.54 x10^6/uL (4.30-5.70) Hemoglobin 13.2 g/dL (13.0-17.5) Hematocrit 39.7 % (39.0-53.0) Mean Corpuscular Volume 88 fL (79-100) Mean Corpuscular Hemoglobin 29 pg (25-35) Mean Corpuscular Hemoglobin Concent 33 g/dL (31-37) Red Cell Distribution Width 19.3 % (11.5-14.5) Platelet Count 237 x10^3/uL (140-400) Neutrophils (%) (Auto) 72 % (31-73) Lymphocytes (%) (Auto) 10 % (24-48) Monocytes (%) (Auto) 11 % (0-9) Eosinophils (%) (Auto) 6 % (0-3) Basophils (%) (Auto) 1 % (0-3) Neutrophils # (Auto) 3.7 x10^3/uL (1.8-7.7) Lymphocytes # (Auto) 0.5 x10^3/uL (1.0-4.8) Monocytes # (Auto) 0.6 x10^3/uL (0.0-1.1) Eosinophils # (Auto) 0.3 x10^3/uL (0.0-0.7) Basophils # (Auto) 0.1 x10^3/uL (0.0-0.2) Sodium Level 135 mmol/L (136-145) Potassium Level 4.0 mmol/L (3.5-5.1) Chloride Level 95 mmol/L (98-107) Carbon Dioxide Level 24 mmol/L (21-32) Anion Gap 16 (6-14) Blood Urea Nitrogen 100 mg/dL (8-26) Creatinine 9.1 mg/dL (0.7-1.3) Estimated GFR (Cockcroft-Gault) 7.3 Glucose Level 162 mg/dL (70-99) Calcium Level 8.0 mg/dL (8.5-10.1) Phosphorus Level 5.8 mg/dL (2.6-4.7) Albumin 3.1 g/dL (3.4-5.0) Microbiology 10/26/19 Blood Culture - Preliminary, Resulted NO GROWTH AFTER 1 DAY Medications Current Medications Hydralazine HCl (Apresoline Inj) 10 mg 1X ONCE IVP Last administered on 10/25/19at 05:58; Start 10/25/19 at 06:00; Stop 10/25/19 at 06:01; Status DC Hydralazine HCl (Apresoline Inj) 10 mg 1X ONCE IVP Last administered on 10/25/19at 08:47; Start 10/25/19 at 08:30; Stop 10/25/19 at 08:33; Status DC Hydralazine HCl (Apresoline Inj) 10 mg PRN Q4HRS PRN IVP ELEVATED BP, SEE COMMENTS Last administered on 10/26/19at 03:03; Start 10/25/19 at 08:30 Lidocaine HCl (Buffered Lidocaine 1%) 3 ml STK-MED ONCE .ROUTE ; Start 10/25/19 at 09:10; Stop 10/25/19 at 09:10; Status DC Lidocaine HCl (Buffered Lidocaine 1%) 6 ml 1X ONCE INJ Last administered on 10/25/19at 09:34; Start 10/25/19 at 09:30; Stop 10/25/19 at 09:31; Status DC Hydralazine HCl (Apresoline Inj) 10 mg 1X ONCE IVP Last administered on 10/25/19at 10:16; Start 10/25/19 at 10:15; Stop 10/25/19 at 10:17; Status DC Amlodipine Besylate (Norvasc) 10 mg DAILY PO Last administered on 10/26/19 14:27; Start 10/26/19 at 09:00 Aspirin (Ecotrin) 325 mg DAILYWBKFT PO Last administered on 10/26/19 14:25; Start 10/26/19 at 08:00 Atorvastatin Calcium (Lipitor) 10 mg QHS PO Last administered on 10/26/19at 20:41; Start 10/25/19 at 21:00 Carvedilol (Coreg) 6.25 mg BIDWMEALS PO Last administered on 10/25/19 18:11; Start 10/25/19 at 17:00; Stop 10/25/19 at 21:30; Status DC Hydralazine HCl (Apresoline) 50 mg BID PO Last administered on 10/26/19at 14:25; Start 10/25/19 at 21:00; Stop 10/26/19 at 15:13; Status DC Isosorbide Mononitrate (Imdur) 30 mg DAILY PO Last administered on 10/26/19at 14:26; Start 10/26/19 at 09:00; Stop 10/26/19 at 15:13; Status DC Sodium Chloride (Normal Saline Flush) 3 ml QSHIFT PRN IV AFTER MEDS AND BLOOD DRAWS; Start 10/25/19 at 17:15 Ondansetron HCl (Zofran) 4 mg PRN Q4HRS PRN IV NAUSEA/VOMITING; Start 10/25/19 at 17:15 Acetaminophen (Tylenol) 650 mg PRN Q4HRS PRN PO TEMP OVER 100.4F OR MILD PAIN Last administered on 10/27/19at 08:26; Start 10/25/19 at 17:15 Docusate Sodium (Colace) 100 mg PRN BID PRN PO HARD STOOLS; Start 10/25/19 at 17:15; Status Cancel Albuterol/ Ipratropium (Duoneb) 3 ml Q4H NEB Last administered on 10/25/19at 20:46; Start 10/25/19 at 17:15; Stop 10/25/19 at 21:34; Status DC Guaifenesin (Robitussin) 200 mg PRN Q4HRS PRN PO COUGH; Start 10/25/19 at 17:15 Lorazepam (Ativan) 0.5 mg PRN Q4HRS PRN PO ANXIETY / AGITATION; Start 10/25/19 at 17:15 Albuterol Sulfate (Ventolin Neb Soln) 2.5 mg PRN Q4HRS PRN NEB SHORTNESS OF BREATH; Start 10/25/19 at 17:30 Calcium/Vitamin D (Oscal D 500mg/ 200uts) 1 tab BIDWMEALS PO Last administered on 10/26/19at 17:28; Start 10/26/19 at 08:00 Docusate Sodium (Colace) 100 mg PRN DAILY PRN PO CONSTIPATION; Start 10/25/19 at 17:30 Duloxetine HCl (Cymbalta) 30 mg DAILY PO Last administered on 10/26/19at 14:26; Start 10/26/19 at 09:00 Polyethylene Glycol (miraLAX PACKET) 17 gm PRN DAILY PRN PO CONSTIPATION; Start 10/25/19 at 17:30 Hydroxyzine HCl (Atarax) 10 mg PRN Q6HRS PRN PO ITCHING Last administered on 10/26/19at 02:03; Start 10/25/19 at 17:30 Labetalol HCl (Trandate) 200 mg BID PO Last administered on 10/26/19at 23:39; Start 10/26/19 at 09:00 Albuterol/ Ipratropium (Duoneb) 3 ml RTQID NEB Last administered on 10/27/19at 08:07; Start 10/26/19 at 08:00 Sodium Chloride 1,000 ml @ 1,000 mls/hr Q1H PRN IV hypotension; Start 10/26/19 at 09:19; Stop 10/26/19 at 15:18; Status DC Albumin Human 200 ml @ 200 mls/hr 1X PRN PRN IV Hypotension; Start 10/26/19 at 09:30; Stop 10/26/19 at 15:29; Status DC Sodium Chloride (Normal Saline Flush) 10 ml 1X PRN PRN IV AP catheter pack; Start 10/26/19 at 09:30; Stop 10/26/19 at 21:00; Status DC Sodium Chloride (Normal Saline Flush) 10 ml 1X PRN PRN IV AP[employer] catheter pack; Start 10/26/19 at 09:30; Stop 10/26/19 at 21:00; Status DC Sodium Chloride 1,000 ml @ 400 mls/hr Q2H30M PRN IV PATENCY; Start 10/26/19 at 09:00; Stop 10/26/19 at 21:00; Status DC Info (PHARMACY MONITORING -- do not chart) 1 each PRN DAILY PRN MC SEE COMMENTS; Start 10/26/19 at 09:30; Status Cancel Info (PHARMACY MONITORING -- do not chart) 1 each PRN DAILY PRN MC SEE COMMENTS; Start 10/26/19 at 09:30; Status UNV Hydralazine HCl (Apresoline) 100 mg BID PO Last administered on 10/26/19at 23:38; Start 10/26/19 at 21:00 Isosorbide Mononitrate (Imdur) 60 mg DAILY PO ; Start 10/27/19 at 09:00 Isosorbide Mononitrate (Imdur) 30 mg 1X ONCE PO ; Start 10/26/19 at 15:30; Stop 10/26/19 at 15:31; Status DC Calcium Carbonate/ Glycine (Tums) 500 mg PRN AFTMEALHC PRN PO INDIGESTION Last administered on 10/26/19at 22:40; Start 10/26/19 at 22:45 Sodium Chloride 1,000 ml @ 1,000 mls/hr Q1H PRN IV hypotension; Start 10/27/19 at 08:10; Stop 10/27/19 at 14:09 Diphenhydramine HCl (Benadryl) 25 mg 1X PRN PRN IV ITCHING; Start 10/27/19 at 08:15; Stop 10/28/19 at 08:14 Diphenhydramine HCl (Benadryl) 25 mg 1X PRN PRN IV ITCHING; Start 10/27/19 at 08:15; Stop 10/28/19 at 08:14 Sodium Chloride 1,000 ml @ 400 mls/hr Q2H30M PRN IV PATENCY; Start 10/27/19 at 08:10; Stop 10/27/19 at 20:09 Info (PHARMACY MONITORING -- do not chart) 1 each PRN DAILY PRN MC SEE COMMENTS; Start 10/27/19 at 08:15 Active Scripts Active Hydrocodone-Apap 5-325 (Hydrocodone Bit/Acetaminophen) 1 Tab Tablet 1 Tab PO PRN Q6HRS PRN 6 Days Isosorbide Mononitrate Er (Isosorbide Mononitrate) 30 Mg Tab.er.24h 30 Mg PO DAILY 30 Days Amlodipine Besylate 10 Mg Tablet 10 Mg PO DAILY 30 Days Coreg (Carvedilol) 6.25 Mg Tablet 6.25 Mg PO BIDWMEALS 30 Days Atorvastatin Calcium 10 Mg Tablet 10 Mg PO QHS 30 Days Colace (Docusate Sodium) 100 Mg Capsule 100 Mg PO DAILY PRN Polyethylene Glycol 3350 17 Gm Powd.pack 17 Gm PO DAILY PRN Proair Hfa (Albuterol Sulfate) 8.5 Gm Hfa.aer.ad 2.5 Mg NEB PRN Q4HRS PRN 30 Days Cetirizine Hcl 10 Mg Tablet 10 Mg PO DAILY 30 Days Oyster Shell 500 Mg + Vit D Tb (Calcium Carbonate/Vitamin D3) 1 Each Tablet 1 Tab PO BIDWMEALS 30 Days Aspirin Ec (Aspirin) 325 Mg Tablet. 325 Mg PO DAILYWBKFT 30 Days Reported Cymbalta (Duloxetine Hcl) 30 Mg Capsule. 1 Cap PO DAILY Hydralazine Hcl 50 Mg Tablet 1 Tab PO BID Vitals/I & O Vital Sign - Last 24 Hours 10/26/19 10/26/19 10/26/19 10/26/19 14:25 14:26 14:26 14:27 Pulse 99 99 99 99 B/P (MAP) 231/150 231/150 231/150 231/150 10/26/19 10/26/19 10/26/19 10/26/19 14:38 15:30 16:00 17:28 Temp 98.0 98.0 Pulse 77 80 64 Resp 18 16 B/P (MAP) 231/150 (177) 100/65 91/60 (70) Pulse Ox 99 O2 Delivery Nasal Cannula Room Air Nasal Cannula O2 Flow Rate 2.0 10/26/19 10/26/19 10/26/19 10/26/19 19:41 20:00 20:16 23:00 Temp 97.6 97.5 97.6 97.5 Pulse 64 71 Resp 16 17 B/P (MAP) 99/56 (70) 102/67 (79) Pulse Ox 94 100 O2 Delivery Room Air Room Air Room Air Room Air 10/26/19 10/26/19 10/27/19 10/27/19 23:38 23:39 04:30 07:00 Temp 98.6 98.0 98.6 98.0 Pulse 71 71 74 74 Resp 20 20 B/P (MAP) 102/67 102/67 143/95 (111) 172/115 (134) Pulse Ox 98 96 O2 Delivery Room Air Room Air 10/27/19 10/27/19 07:30 08:09 Pulse Ox 100 O2 Delivery Room Air Room Air Intake and Output 10/26/19 10/26/19 10/27/19 15:00 23:00 07:00 Intake Total 200 ml 450 ml 150 ml Output Total 250 ml 150 ml Balance -50 ml 300 ml 150 ml Justicifation of Admission Dx: Justifications for Admission: Justification of Admission Dx: Yes Chronic Renal Failure: Significant Resp Findings LAURA BOSS MD Oct 27, 2019 11:40
[2019-10-27] MEDS ORDERED: HYDR-2869 PO (11:43)
[2019-10-27] MEDS ORDERED: ISOS30TA4 PO (11:43)
--- NOTE | 2019-10-27 12:30 | PDOC ---
PROGRESS NOTES Subjective Subjective Feeling better Objective Objective Vital Signs Date Time Temp Pulse Resp B/P (MAP) Pulse Ox O2 Delivery O2 Flow Rate FiO2 10/27/19 08:09 100 Room Air 10/27/19 07:00 98.0 74 20 172/115 (134) 98.0 10/26/19 14:38 2.0 Intake and Output 10/27/19 07:00 Intake Total 800 ml Output Total 400 ml Balance 400 ml Intake Oral 800 ml Output Urine Total 400 ml Physical Exam Abdomen: Soft Heart: Regular rate Extremities: No cyanosis General: Alert, Oriented X3, Cooperative HEENT: Atraumatic, EOMI, Mucous membr. moist/pink Lungs: Other (diminished ) Neuro: Normal speech Psych/Mental Status: Mental status NL, Mood NL Skin: No significant lesion Assessment Assessment 1. Acute respiratory failure with recurrent large right pleural effusion. s/p thoracentesis with improvement in symptoms 2. Acute on chronic diastolic heart failure in the setting of uncontrolled HTN, better compensated. Continue current medical regimen. 3. Accelerated hypertension; remains elevated. Increase labetalol dose for better control. 4. Mild troponin elevation: this is chronic, 0.136. H/o chronic mild troponin elevation. No acute EKG changes, arrhythmias. Most probably demand mediated. Cath 04/29 without any significant CAD. 5. ESRD on HD per nephrology team 6. Hyperlipidemia: Continue statin therapy 7. Noncompliance Comment Review of Relevant I have reviewed the following items benjamin (where applicable) has been applied. Labs Microbiology 10/26/19 Blood Culture - Preliminary, Resulted NO GROWTH AFTER 1 DAY Medications Current Medications Calcium Carbonate/ Glycine (Tums) 500 mg PRN AFTMEALHC PRN PO INDIGESTION Last administered on 10/26/19at 22:40; Start 10/26/19 at 22:45 Diphenhydramine HCl (Benadryl) 25 mg 1X PRN PRN IV ITCHING; Start 10/27/19 at 08:15; Stop 10/28/19 at 08:14 Diphenhydramine HCl (Benadryl) 25 mg 1X PRN PRN IV ITCHING; Start 10/27/19 at 08:15; Stop 10/28/19 at 08:14 Hydralazine HCl (Apresoline) 100 mg BID PO Last administered on 10/26/19at 23:38; Start 10/26/19 at 21:00 Info (PHARMACY MONITORING -- do not chart) 1 each PRN DAILY PRN MC SEE COMMENTS; Start 10/27/19 at 08:15 Isosorbide Mononitrate (Imdur) 30 mg 1X ONCE PO ; Start 10/26/19 at 15:30; Stop 10/26/19 at 15:31; Status DC Isosorbide Mononitrate (Imdur) 60 mg DAILY PO ; Start 10/27/19 at 09:00 Sodium Chloride 1,000 ml @ 400 mls/hr Q2H30M PRN IV PATENCY; Start 10/27/19 at 08:10; Stop 10/27/19 at 20:09 Sodium Chloride 1,000 ml @ 1,000 mls/hr Q1H PRN IV hypotension; Start 10/27/19 at 08:10; Stop 10/27/19 at 14:09 Vitals/I & O Vital Sign - Last 24 Hours 10/26/19 10/26/19 10/26/19 10/26/19 14:25 14:26 14:26 14:27 Pulse 99 99 99 99 B/P (MAP) 231/150 231/150 231/150 231/150 10/26/19 10/26/19 10/26/19 10/26/19 14:38 15:30 16:00 17:28 Temp 98.0 98.0 Pulse 77 80 64 Resp 18 16 B/P (MAP) 231/150 (177) 100/65 91/60 (70) Pulse Ox 99 O2 Delivery Nasal Cannula Room Air Nasal Cannula O2 Flow Rate 2.0 10/26/19 10/26/19 10/26/19 10/26/19 19:41 20:00 20:16 23:00 Temp 97.6 97.5 97.6 97.5 Pulse 64 71 Resp 16 17 B/P (MAP) 99/56 (70) 102/67 (79) Pulse Ox 94 100 O2 Delivery Room Air Room Air Room Air Room Air 10/26/19 10/26/19 10/27/19 10/27/19 23:38 23:39 04:30 07:00 Temp 98.6 98.0 98.6 98.0 Pulse 71 71 74 74 Resp 20 20 B/P (MAP) 102/67 102/67 143/95 (111) 172/115 (134) Pulse Ox 98 96 O2 Delivery Room Air Room Air 10/27/19 10/27/19 07:30 08:09 Pulse Ox 100 O2 Delivery Room Air Room Air Intake and Output 10/26/19 10/26/19 10/27/19 15:00 23:00 07:00 Intake Total 200 ml 450 ml 150 ml Output Total 250 ml 150 ml Balance -50 ml 300 ml 150 ml ANA HOOKER MD Oct 27, 2019 12:30
[2019-10-27] MEDS: ISOSORBIDE MONONITRATE ER 30 MG TAB.ER.24H PO SCH (13:10)
[2019-10-27] MEDS: DULoxetine HCL 30 MG CAPSULE.DR PO SCH (13:10)
[2019-10-27] MEDS: CALCIUM CARB/VIT D3 500/200 TABLET. PO SCH ×3 (13:10→17:29)
[2019-10-27] MEDS: amLODIPine BESYLATE 10 MG TABLET PO SCH (13:12)
[2019-10-27] MEDS: hydrOXYzine 10 MG TABLET PO PRN (13:12)
[2019-10-27] MEDS: LABETALOL HCL 200 MG TABLET PO SCH ×2 (13:12→20:22)
[2019-10-27] MEDS: ASPIRIN ENTERIC COATED 325 MG TABLET.DR. PO SCH (13:12)
[2019-10-27] MEDS: ATORVASTATIN CALCIUM 10 MG TABLET. PO SCH (20:22)
[2019-10-27] MEDS ORDERED: LABETALOL HCL 200 MG TABLET PO SCH (21:00)
[2019-10-28 03:00] VITALS: BP 101/76
--- NOTE | 2019-10-28 05:59 | PDOC ---
PULMONARY PROGRESS NOTES Subjective sob better, no cough, no pain Vitals Vital Signs Date Time Temp Pulse Resp B/P (MAP) Pulse Ox O2 Delivery O2 Flow Rate FiO2 10/28/19 03:00 98.0 74 18 101/76 (84) 95 Room Air 98.0 10/27/19 20:00 2.0 General: Alert, No acute distress Lungs: Crackles, Other Cardiovascular: S1, S2 Abdomen: Soft, Non-tender Extremities: No Edema Medications Active Scripts Medications Dose Route/Sig Max Daily Dose Days Date Category Hydrocodone-Apap 5-325 (Hydrocodone Bit/Acetaminophen) 1 Tab Tablet 1 Tab PO PRN Q6HRS PRN 6 08/09/19 Rx Isosorbide Mononitrate Er (Isosorbide Mononitrate) 30 Mg Tab.er.24h 30 Mg PO DAILY 30 01/19/19 Rx Amlodipine Besylate 10 Mg Tablet 10 Mg PO DAILY 30 01/19/19 Rx Coreg (Carvedilol) 6.25 Mg Tablet 6.25 Mg PO BIDWMEALS 30 01/03/19 Rx Atorvastatin Calcium 10 Mg Tablet 10 Mg PO QHS 30 12/07/18 Rx Cymbalta (Duloxetine Hcl) 30 Mg Capsule. 1 Cap PO DAILY 11/29/18 Reported Hydralazine Hcl 50 Mg Tablet 1 Tab PO BID 11/29/18 Reported Colace (Docusate Sodium) 100 Mg Capsule 100 Mg PO DAILY PRN 10/14/18 Rx Polyethylene Glycol 3350 17 Gm Powd.pack 17 Gm PO DAILY PRN 10/14/18 Rx Proair Hfa (Albuterol Sulfate) 8.5 Gm Hfa.aer.ad 2.5 Mg NEB PRN Q4HRS PRN 30 10/10/18 Rx Cetirizine Hcl 10 Mg Tablet 10 Mg PO DAILY 30 10/10/18 Rx Oyster Shell 500 Mg + Vit D Tb (Calcium Carbonate/Vitamin D3) 1 Each Tablet 1 Tab PO BIDWMEALS 30 01/31/18 Rx Aspirin Ec (Aspirin) 325 Mg Tablet. 325 Mg PO DAILYWBKFT 30 10/25/17 Rx Impression . IMPRESSION: 1. Abnormal x-ray revealing reaccumulation of right-sided effusion, suspect transudative effusion. s/p thoracentesis 2. End-stage renal disease, on hemodialysis. 3. Hyponatremia. 4. Elevated troponin. 5. Elevated BNP. 6. Progressive dyspnea secondary to above. 7. Hypertension. Plan . 02 titration fu pleural fluid studies aggressive HD BD discussed w pt rn ANGELINA RIVERA MD Oct 28, 2019 05:59
[2019-10-28 07:00] VITALS: BP 172/118
[2019-10-28] MEDS: IPRATRPIUM/ALBUTEROL 0.5/2.5MG 3 ML NEBU. NEB SCH ×3 (07:34→15:32)
[2019-10-28] MEDS: CALCIUM CARB/VIT D3 500/200 TABLET. PO SCH ×2 (08:00→17:00)
[2019-10-28] MEDS: DULoxetine HCL 30 MG CAPSULE.DR PO SCH (08:37)
[2019-10-28] MEDS: ASPIRIN ENTERIC COATED 325 MG TABLET.DR. PO SCH (08:37)
[2019-10-28] MEDS: amLODIPine BESYLATE 10 MG TABLET PO SCH (08:39)
[2019-10-28] MEDS: LABETALOL HCL 200 MG TABLET PO SCH (08:40)
[2019-10-28] MEDS: ISOSORBIDE MONONITRATE ER 30 MG TAB.ER.24H PO SCH (08:40)
[2019-10-28 11:00] VITALS: BP 154/103
--- NOTE | 2019-10-28 12:39 | PDOC ---
PROGRESS NOTES Chief Complaint Chief Complaint Acute respiratory failure with recurrent large right pleural effusion. s/p thoracentesis Acute on chronic diastolic heart failure in the setting of uncontrolled HTN Accelerated hypertension; remains elevated Mild troponin elevation: this is chronic, 0.136. H/o chronic mild troponin elevation. No acute EKG changes, arrhythmias. Most probably demand mediated. Cath 04/29 without any significant CAD. ESRD on HD Hyperlipidemia Noncompliance low BP following HD plan bp IMPROVED changed coreg to labetolol, continue norvasc. increase imdur, continue ram continue statin and ASA HD prior to dc hopefully tody Outpatient echo to assess LV systolic function . Supportive care plan for dc today History of Present Illness History of Present Illness HD this AM Vitals Vitals Vital Signs Date Time Temp Pulse Resp B/P (MAP) Pulse Ox O2 Delivery O2 Flow Rate FiO2 10/28/19 12:01 95 Room Air 10/28/19 11:00 98.3 86 18 154/103 (120) 98.3 10/28/19 08:00 2.0 Physical Exam General: Alert, Oriented X3, Cooperative Heart: Regular rate Lungs: Other Abdomen: Soft Extremities: No cyanosis Skin: No significant lesion Comment Review of Relevant I have reviewed the following items benjamin (where applicable) has been applied. Labs Microbiology 10/26/19 Blood Culture - Preliminary, Resulted NO GROWTH AFTER 2 DAYS Medications Current Medications Hydralazine HCl (Apresoline Inj) 10 mg 1X ONCE IVP Last administered on 10/25/19at 05:58; Start 10/25/19 at 06:00; Stop 10/25/19 at 06:01; Status DC Hydralazine HCl (Apresoline Inj) 10 mg 1X ONCE IVP Last administered on 10/25/19at 08:47; Start 10/25/19 at 08:30; Stop 10/25/19 at 08:33; Status DC Hydralazine HCl (Apresoline Inj) 10 mg PRN Q4HRS PRN IVP ELEVATED BP, SEE COMMENTS Last administered on 10/26/19at 03:03; Start 10/25/19 at 08:30 Lidocaine HCl (Buffered Lidocaine 1%) 3 ml STK-MED ONCE .ROUTE ; Start 10/25/19 at 09:10; Stop 10/25/19 at 09:10; Status DC Lidocaine HCl (Buffered Lidocaine 1%) 6 ml 1X ONCE INJ Last administered on 10/25/19at 09:34; Start 10/25/19 at 09:30; Stop 10/25/19 at 09:31; Status DC Hydralazine HCl (Apresoline Inj) 10 mg 1X ONCE IVP Last administered on 10/25/19at 10:16; Start 10/25/19 at 10:15; Stop 10/25/19 at 10:17; Status DC Amlodipine Besylate (Norvasc) 10 mg DAILY PO Last administered on 10/28/19at 08:39; Start 10/26/19 at 09:00 Aspirin (Ecotrin) 325 mg DAILYWBKFT PO Last administered on 10/28/19at 08:37; Start 10/26/19 at 08:00 Atorvastatin Calcium (Lipitor) 10 mg QHS PO Last administered on 10/26/19at 20:41; Start 10/25/19 at 21:00 Carvedilol (Coreg) 6.25 mg BIDWMEALS PO Last administered on 10/25/19at 18:11; Start 10/25/19 at 17:00; Stop 10/25/19 at 21:30; Status DC Hydralazine HCl (Apresoline) 50 mg BID PO Last administered on 10/26/19at 14:25; Start 10/25/19 at 21:00; Stop 10/26/19 at 15:13; Status DC Isosorbide Mononitrate (Imdur) 30 mg DAILY PO Last administered on 10/26/19at 14:26; Start 10/26/19 at 09:00; Stop 10/26/19 at 15:13; Status DC Sodium Chloride (Normal Saline Flush) 3 ml QSHIFT PRN IV AFTER MEDS AND BLOOD DRAWS; Start 10/25/19 at 17:15 Ondansetron HCl (Zofran) 4 mg PRN Q4HRS PRN IV NAUSEA/VOMITING; Start 10/25/19 at 17:15 Acetaminophen (Tylenol) 650 mg PRN Q4HRS PRN PO TEMP OVER 100.4F OR MILD PAIN Last administered on 10/27/19at 08:26; Start 10/25/19 at 17:15 Docusate Sodium (Colace) 100 mg PRN BID PRN PO HARD STOOLS; Start 10/25/19 at 1 7:15; Status Cancel Albuterol/ Ipratropium (Duoneb) 3 ml Q4H NEB Last administered on 10/25/19at 20:46; Start 10/25/19 at 17:15; Stop 10/25/19 at 21:34; Status DC Guaifenesin (Robitussin) 200 mg PRN Q4HRS PRN PO COUGH; Start 10/25/19 at 17:15 Lorazepam (Ativan) 0.5 mg PRN Q4HRS PRN PO ANXIETY / AGITATION; Start 10/25/19 at 17:15 Albuterol Sulfate (Ventolin Neb Soln) 2.5 mg PRN Q4HRS PRN NEB SHORTNESS OF BREATH; Start 10/25/19 at 17:30 Calcium/Vitamin D (Oscal D 500mg/ 200uts) 1 tab BIDWMEALS PO Last administered on 10/27/19at 13:10; Start 10/26/19 at 08:00 Docusate Sodium (Colace) 100 mg PRN DAILY PRN PO HARD STOOLS; Start 10/25/19 at 17:30 Duloxetine HCl (Cymbalta) 30 mg DAILY PO Last administered on 10/28/19at 08:37; Start 10/26/19 at 09:00 Polyethylene Glycol (miraLAX PACKET) 17 gm PRN DAILY PRN PO CONSTIPATION; Start 10/25/19 at 17:30 Hydroxyzine HCl (Atarax) 10 mg PRN Q6HRS PRN PO ITCHING Last administered on 10/27/19at 13:12; Start 10/25/19 at 17:30 Labetalol HCl (Trandate) 200 mg BID PO Last administered on 10/27/19at 13:12; Start 10/26/19 at 09:00; Stop 10/27/19 at 14:02; Status DC Albuterol/ Ipratropium (Duoneb) 3 ml RTQID NEB Last administered on 10/28/19at 12:00; Start 10/26/19 at 08:00 Sodium Chloride 1,000 ml @ 1,000 mls/hr Q1H PRN IV hypotension; Start 10/26/19 at 09:19; Stop 10/26/19 at 15:18; Status DC Albumin Human 200 ml @ 200 mls/hr 1X PRN PRN IV Hypotension; Start 10/26/19 at 09:30; Stop 10/26/19 at 15:29; Status DC Sodium Chloride (Normal Saline Flush) 10 ml 1X PRN PRN IV AP catheter pack; Start 10/26/19 at 09:30; Stop 10/26/19 at 21:00; Status DC Sodium Chloride (Normal Saline Flush) 10 ml 1X PRN PRN IV 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; Start 10/26/19 at 09:30; Stop 10/26/19 at 21:00; Status DC Sodium Chloride 1,000 ml @ 400 mls/hr Q2H30M PRN IV PATENCY; Start 10/26/19 at 09:00; Stop 10/26/19 at 21:00; Status DC Info (PHARMACY MONITORING -- do not chart) 1 each PRN DAILY PRN MC SEE COMMENTS; Start 10/26/19 at 09:30; Status Cancel Info (PHARMACY MONITORING -- do not chart) 1 each PRN DAILY PRN MC SEE COMMENTS; Start 10/26/19 at 09:30; Status UNV Hydralazine HCl (Apresoline) 100 mg BID PO Last administered on 10/28/19at 08:40; Start 10/26/19 at 21:00 Isosorbide Mononitrate (Imdur) 60 mg DAILY PO Last administered on 10/28/19at 08:40; Start 10/27/19 at 09:00 Isosorbide Mononitrate (Imdur) 30 mg 1X ONCE PO ; Start 10/26/19 at 15:30; Stop 10/26/19 at 15:31; Status DC Calcium Carbonate/ Glycine (Tums) 500 mg PRN AFTMEALHC PRN PO INDIGESTION Last administered on 10/26/19at 22:40; Start 10/26/19 at 22:45 Sodium Chloride 1,000 ml @ 1,000 mls/hr Q1H PRN IV hypotension; Start 10/27/19 at 08:10; Stop 10/27/19 at 14:09; Status DC Diphenhydramine HCl (Benadryl) 25 mg 1X PRN PRN IV ITCHING; Start 10/27/19 at 08:15; Stop 10/28/19 at 08:14; Status DC Diphenhydramine HCl (Benadryl) 25 mg 1X PRN PRN IV ITCHING; Start 10/27/19 at 08:15; Stop 10/28/19 at 08:14; Status DC Sodium Chloride 1,000 ml @ 400 mls/hr Q2H30M PRN IV PATENCY; Start 10/27/19 at 08:10; Stop 10/27/19 at 20:09; Status DC Info (PHARMACY MONITORING -- do not chart) 1 each PRN DAILY PRN MC SEE COMMENTS; Start 10/27/19 at 08:15 Labetalol HCl (Trandate) 300 mg BID PO ; Start 10/27/19 at 21:00; Stop 10/27/19 at 14:40; Status DC Labetalol HCl (Trandate) 200 mg BID PO Last administered on 10/28/19at 08:40; Start 10/27/19 at 21:00 Active Scripts Active Isosorbide Mononitrate Er (Isosorbide Mononitrate) 30 Mg Tab.er.24h 60 Mg PO DAILY 30 Days Hydralazine Hcl 50 Mg Tablet 100 Mg PO BID 30 Days Hydrocodone-Apap 5-325 (Hydrocodone Bit/Acetaminophen) 1 Tab Tablet 1 Tab PO PRN Q6HRS PRN 6 Days Amlodipine Besylate 10 Mg Tablet 10 Mg PO DAILY 30 Days Atorvastatin Calcium 10 Mg Tablet 10 Mg PO QHS 30 Days Colace (Docusate Sodium) 100 Mg Capsule 100 Mg PO DAILY PRN Polyethylene Glycol 3350 17 Gm Powd.pack 17 Gm PO DAILY PRN Proair Hfa (Albuterol Sulfate) 8.5 Gm Hfa.aer.ad 2.5 Mg NEB PRN Q4HRS PRN 30 Days Cetirizine Hcl 10 Mg Tablet 10 Mg PO DAILY 30 Days Oyster Shell 500 Mg + Vit D Tb (Calcium Carbonate/Vitamin D3) 1 Each Tablet 1 Tab PO BIDWMEALS 30 Days Aspirin Ec (Aspirin) 325 Mg Tablet. 325 Mg PO DAILYWBKFT 30 Days Reported Cymbalta (Duloxetine Hcl) 30 Mg Capsule. 1 Cap PO DAILY Hydralazine Hcl 50 Mg Tablet 1 Tab PO BID Vitals/I & O Vital Sign - Last 24 Hours 10/27/19 10/27/19 10/27/19 10/27/19 13:00 13:10 13:11 13:12 Pulse 89 89 89 88 B/P (MAP) 188/126 (146) 188/126 188/126 188/126 10/27/19 10/27/19 10/27/19 10/27/19 13:12 14:34 15:20 15:45 Temp 98.1 98.1 Pulse 89 75 Resp 18 B/P (MAP) 188/126 83/49 (60) 78/47 (57) Pulse Ox 91 O2 Delivery Room Air Room Air 10/27/19 10/27/19 10/27/19 10/27/19 16:07 16:54 19:10 20:00 Temp 98.2 98.2 Pulse 74 Resp 20 B/P (MAP) 90/56 (67) 94/65 (75) 122/84 (97) Pulse Ox 95 O2 Delivery Room Air Room Air O2 Flow Rate 2.0 10/27/19 10/27/19 10/27/19 10/28/19 20:22 20:57 22:56 03:00 Temp 97.7 98.0 97.7 98.0 Pulse 75 81 74 Resp 21 18 B/P (MAP) 94/65 117/81 (93) 101/76 (84) Pulse Ox 94 95 O2 Delivery Room Air Room Air Room Air 10/28/19 10/28/19 10/28/19 10/28/19 07:00 07:37 08:00 08:39 Temp 97.5 97.5 Pulse 80 74 Resp 18 B/P (MAP) 172/118 (136) 172/83 Pulse Ox 94 95 O2 Delivery Room Air Room Air Room Air O2 Flow Rate 2.0 10/28/19 10/28/19 10/28/19 10/28/19 08:40 08:40 08:40 11:00 Temp 98.3 98.3 Pulse 74 74 74 86 Resp 18 B/P (MAP) 172/83 172/83 172/83 154/103 (120) Pulse Ox 95 O2 Delivery Room Air 10/28/19 12:01 Pulse Ox 95 O2 Delivery Room Air Intake and Output 10/27/19 10/27/19 10/28/19 15:00 23:00 07:00 Intake Total 200 ml 180 ml Balance 200 ml 180 ml Justicifation of Admission Dx: Justifications for Admission: Justification of Admission Dx: Yes Chronic Renal Failure: Significant Resp Findings LAURA BOSS MD Oct 28, 2019 12:39
[2019-10-28 15:00] VITALS: BP 138/97
--- NOTE | 2019-10-28 19:43 | NUR ---
Discharge Note: FRANKIE GARCIA [address] Discharge instructions and discharge home medications reviewed with Patient and a copy given. All questions have been answered and understanding verbalized.
[2019-11-30] MEDS ORDERED: HYDR-2761 PO (08:42)
== END 2019-10-28 20:53 | disposition home or self-care (01) | DRG 304 ==
LOC: ER 00:55 → ED HOLD 03:04 → 2 NORTH 03:38
PROVIDERS: ADMIT Internal Medicine; ATTEND Internal Medicine
PROC: 0W993ZZ Drainage of Right Pleural Cavity, Percutaneous Approach (ICD-10-PCS; principal; 2019-10-25)
PROC: 5A1D70Z Performance of Urinary Filtration, Intermittent, Less than 6 Hours Per Day (ICD-10-PCS; 2019-10-26)
PROC: 5A1D70Z Performance of Urinary Filtration, Intermittent, Less than 6 Hours Per Day (ICD-10-PCS; 2019-10-27)
DX: I16.0 Hypertensive urgency (principal); J96.01 Acute respiratory failure with hypoxia; I50.43 Acute on chronic combined systolic (congestive) and diastolic (congestive) heart failure; N18.6 End stage renal disease; E87.1 Hypo-osmolality and hyponatremia; I13.2 Hypertensive heart and chronic kidney disease with heart failure and with stage 5 chronic kidney disease, or end stage renal disease; M19.90 Unspecified osteoarthritis, unspecified site; F41.9 Anxiety disorder, unspecified; F17.210 Nicotine dependence, cigarettes, uncomplicated; E78.5 Hyperlipidemia, unspecified; I25.10 Atherosclerotic heart disease of native coronary artery without angina pectoris; D64.9 Anemia, unspecified; J45.909 Unspecified asthma, uncomplicated; Z99.2 Dependence on renal dialysis; Z98.1 Arthrodesis status; Z91.15 Patient's noncompliance with renal dialysis; Z88.5 Allergy status to narcotic agent; Z88.8 Allergy status to other drugs, medicaments and biological substances; Z91.19 Patient's noncompliance with other medical treatment and regimen; Z86.73 Personal history of transient ischemic attack (TIA), and cerebral infarction without residual deficits; Z82.3 Family history of stroke; Z82.49 Family history of ischemic heart disease and other diseases of the circulatory system
CPT/HCPCS: 32555; 36415; 71045; 80053; 80069; 83880; 84484; 85025; 85610; 87040; 93005; 94640; 94760; 96372; 96374; 96375; 99285; C1892; J0360; J3490; G0378

== ENCOUNTER 2019-11-20 03:30 | Emergency (ER) | payer OTHER ==
[~2019-11-20] VITALS: Ht 167.6 cm; Wt 45.5 kg
[2019-11-20] MEDS ORDERED: HYDROmorphone 2 MG/ML VIAL SQ ONE (05:30)
[2019-11-20] MEDS ORDERED: MAG HYDROX/ALUMINUM HYD/SIMETH 30 ML ORAL.SUSP PO ONE (05:30)
[2019-11-20] MEDS ORDERED: FAMOTIDINE 20 MG TABLET. PO ONE (05:30)
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
--- NOTE | 2019-11-20 06:13 | RAD ---
CT abdomen and pelvis without contrast PQRS statement: CT scans at this facility use dose reduction including either automated exposure control, iterative reconstructions, and /or weight based radiation dosing via mA and kV modification when appropriate to reduce radiation dose to as low as reasonably achievable. HISTORY: Periumbilical abdominal pain. COMPARISON: CT abdomen and pelvis January 29, 2019. Abdomen findings: Large right pleural effusion with mild depression of the right diaphragm and complete collapse of the right lower lobe with mild leftward shift of the heart and mediastinum may be larger relative see the prior study. There is mild abdominal ascites similar the prior exam. Atrophy of the kidneys. Adrenals, pancreas, spleen, liver and gallbladder are unremarkable. No bowel obstruction or inflammatory change evident. Appendix not well visualized likely obscured by surrounding bowel loops as well as due to the presence of the abdominal fluid. Calcified aortoiliac plaque. Supraumbilical abdominal wall linear density likely related to the site of prior surgery no discrete hernia sac identified. Pelvis findings: Pelvic ascites stable. Urinary bladder wall is mildly thickened which appears to be new prior exam. Fluid within the less traumatic or likely due to medication with the abdominal free fluid. Postoperative change right inguinal hernia repair. Prostate, rectum and bones are unremarkable. IMPRESSION: 1. Large right pleural effusion with collapse of the right lower lobe and leftward shift of heart and mediastinum is stable to slightly larger since prior imaging. 2. Mild abdominal and pelvic ascites is stable. 3. Supraumbilical ventral abdominal wall demonstrates an ovoid 3 x 1 cm fatty density with a mild peripheral dense wall at site of prior abdominal hematoma, may represent mild scarring, there is no discrete medication through the abdominal wall to confirm a hernia sac, a fatty hernia sac with a tiny neck poorly defined on this exam is a secondary consideration. 4. No bowel obstruction. Appendix is not identified. Electronically signed by: Matthew Negron MD (11/20/2019 6:10 AM) [facility]
[2019-11-20 06:15] LABS: BASO % 1 % (0-3); EOS # 0.3 x10^3/uL (0.0-0.7); EOS % 5 % (0-3); HEMATOCRIT 45.8 % (39.0-53.0); HEMOGLOBIN 14.8 g/dL (13.0-17.5); LYMPH # 0.9 x10^3/uL (1.0-4.8); LYMPH % 14 % (24-48); MEAN CORPUSCULAR HEMOGLOBIN 29 pg (25-35); MEAN CORPUSCULAR HGB CONC 32 g/dL (31-37); MEAN CORPUSCULAR VOLUME 88 fL (79-100); MONO # 0.6 x10^3/uL (0.0-1.1); MONO % 9 % (0-9); NEUT # 4.5 x10^3/uL (1.8-7.7); NEUT % 71 % (31-73); PLATELET COUNT 209 x10^3/uL (140-400); RED CELL DISTRIBUTION WIDTH 18.1 % (11.5-14.5); WHITE BLOOD COUNT 6.3 x10^3/uL (4.0-11.0)
[2019-11-20 06:30] LABS: CALCIUM 9.2 mg/dL (8.5-10.1); GFR 8.5; POTASSIUM 3.8 mmol/L (3.5-5.1)
[2019-11-20 06:35] LABS: ALBUMIN 3.6 g/dL (3.4-5.0); ALBUMIN/GLOBULIN RATIO 0.7 (1.0-1.7); TOTAL BILIRUBIN 0.8 mg/dL (0.2-1.0); TOTAL PROTEIN 8.8 g/dL (6.4-8.2)
[2019-11-20] MEDS ORDERED: LABETALOL HCL 100 MG TABLET. PO ONE (06:45)
[2019-11-20] MEDS ORDERED: LABETALOL 20 MG/4 ML DISP.SYRIN. IVP ONE (06:45)
[2019-11-20] MEDS ORDERED: ONDANSETRON ODT 4 MG TAB.RAPDIS. PO ONE (08:30)
[2019-11-20 10:30] VITALS: BP 236/164
== END 2019-11-20 10:30 | disposition home or self-care (01) ==
LOC: ER 03:30
DX: R10.13 Epigastric pain (principal); M54.9 Dorsalgia, unspecified; J45.909 Unspecified asthma, uncomplicated; I11.9 Hypertensive heart disease without heart failure; N19 Unspecified kidney failure; Z98.890 Other specified postprocedural states; Z88.5 Allergy status to narcotic agent
CPT/HCPCS: 36415; 74176; 80053; 83690; 85025; 96372; 99285; J1170

== ENCOUNTER 2019-11-27 03:07 | Inpatient (IN) | payer OTHER ==
[~2019-11-27] VITALS: Ht 172.7 cm; Wt 53.9 kg
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
[2019-11-27 04:24] LABS: BASO # 0.1 x10^3/uL (0.0-0.2); BASO % 2 % (0-3); EOS # 0.2 x10^3/uL (0.0-0.7); EOS % 4 % (0-3); HEMATOCRIT 43.1 % (39.0-53.0); HEMOGLOBIN 14.1 g/dL (13.0-17.5); LYMPH # 0.7 x10^3/uL (1.0-4.8); LYMPH % 12 % (24-48); MEAN CORPUSCULAR HEMOGLOBIN 29 pg (25-35); MEAN CORPUSCULAR HGB CONC 33 g/dL (31-37); MEAN CORPUSCULAR VOLUME 88 fL (79-100); MONO # 0.9 x10^3/uL (0.0-1.1); MONO % 15 % (0-9); NEUT # 3.9 x10^3/uL (1.8-7.7); NEUT % 68 % (31-73); PLATELET COUNT 188 x10^3/uL (140-400); RED CELL DISTRIBUTION WIDTH 17.4 % (11.5-14.5); WHITE BLOOD COUNT 5.7 x10^3/uL (4.0-11.0)
[2019-11-27] MEDS ORDERED: cloNIDine HCL 0.1 MG TABLET PO ONE (04:30)
[2019-11-27 04:36] LABS: CALCIUM 9.2 mg/dL (8.5-10.1); CREATININE 10.5 mg/dL (0.7-1.3); GFR 6.2; POTASSIUM 4.7 mmol/L (3.5-5.1)
[2019-11-27 04:42] LABS: ALBUMIN 3.2 g/dL (3.4-5.0); ALBUMIN/GLOBULIN RATIO 0.7 (1.0-1.7); TOTAL BILIRUBIN 0.8 mg/dL (0.2-1.0); TOTAL PROTEIN 8.1 g/dL (6.4-8.2)
[2019-11-27] MEDS ORDERED: HYDROmorphone 2 MG/ML VIAL SQ ONE (05:00)
[2019-11-27] MEDS ORDERED: LABETALOL 20 MG/4 ML DISP.SYRIN. IVP ONE (05:30)
[2019-11-27 07:00] VITALS: BP 152/111
--- NOTE | 2019-11-27 07:11 | RAD ---
CHEST PA LATERAL INDICATION: Reason: sob / Spl. Instructions: / History: . COMPARISON STUDY: 10/25/2019. FINDINGS: Lungs: Normal lung volume. Right basilar relaxation atelectasis. The tracheobronchial tree and hilar structures are normal. Pleura: Large right pleural effusion, previously moderate. Heart and Mediastinum: Cardiomegaly. Tortuosity of the thoracic aorta. IMPRESSION: Large right pleural effusion, previously moderate. Right basilar relaxation atelectasis. Electronically signed by: Doyle Fischer MD (11/27/2019 7:08 AM) [id number]
[2019-11-27] MEDS ORDERED: IV NORMAL SALINE 1000ML BAG 1,000 ML IV PRN ×2 (07:57)
[2019-11-27] MEDS ORDERED: DIALYSIS PATIENT. MC PRN (08:00)
[2019-11-27] MEDS ORDERED: diphenhydrAMINE 50 MG/ML VIAL IV PRN ×2 (08:00)
[2019-11-27] MEDS ORDERED: ISOS30TA4 PO (08:02)
[2019-11-27] MEDS ORDERED: CARV6.253 PO (08:05)
[2019-11-27] MEDS ORDERED: VIT1TABL71 PO (08:06)
--- NOTE | 2019-11-27 08:59 | PDOC ---
Provider Note Provider Note Pt seen.H&P dictated.#[id number]. Justicifation of Admission Dx: Justifications for Admission: Justification of Admission Dx: N/A Chronic Renal Failure: Significant Resp Findings ROSALINO SERRANO MD Nov 27, 2019 08:58
[2019-11-27] MEDS ORDERED: POLYETHYLENE GLYCOL 3350 17 GM PACKET. PO PRN (09:00)
[2019-11-27] MEDS ORDERED: ALBUTEROL SULFATE 2.5 MG/3 ML NEBU. NEB PRN (09:00)
[2019-11-27] MEDS ORDERED: DOCUSATE SODIUM 100 MG CAPSULE. PO PRN (09:00)
[2019-11-27] MEDS: amLODIPine BESYLATE 10 MG TABLET PO SCH (09:37)
[2019-11-27] MEDS: DULoxetine HCL 30 MG CAPSULE.DR PO SCH (09:37)
[2019-11-27] MEDS: ISOSORBIDE MONONITRATE ER 30 MG TAB.ER.24H PO SCH (09:37)
[2019-11-27] MEDS: FOLIC/VIT B COMP W-C (RENAL) TABLET. PO SCH (09:37)
[2019-11-27] MEDS: CARVEDILOL 6.25 MG TABLET. PO SCH ×2 (09:38→21:42)
[2019-11-27] MEDS: CETIRIZINE HCL 10 MG TABLET. PO SCH (09:38)
--- NOTE | 2019-11-27 10:24 | HP ---
ADMIT DATE: 11/27/2019 LOCATION: 208. REASON FOR ADMISSION TO THE HOSPITAL: End-stage renal disease, missed dialysis for at least a week. HISTORY OF PRESENT ILLNESS: The patient is a 54-year-old male patient who has a history of kidney failure, dialysis 3 times a week. He also has recurrent pleural effusions. He has been not feeling well, did not go to dialysis and was having shortness of breath, was brought to the hospital and chest x-ray shows right pleural effusion. BUN and creatinine were high. The patient was admitted to the hospital. Renal is consulted. The patient is going for dialysis today. PAST MEDICAL HISTORY: The patient has been noncompliant in the past, hypertension, had recurrent pleural effusions in the past. He used to get a pleural tap almost every 2 weeks, but lately he had been in the hospital for a month. The last pleural tap was a month ago. PAST SURGICAL HISTORY: He had a hernia surgery, he had a PD catheter before, AV fistula, and cervical fusion. ALLERGIES: CODEINE AND LISINOPRIL. MEDICATIONS AT HOME: The patient is on albuterol, amlodipine 10 mg daily, aspirin 325 daily, Coreg 6.25 twice a day, Zyrtec daily, Colace 100 mg daily, Cymbalta 30 mg daily, hydralazine 50 mg twice a day, isosorbide 30 mg daily, MiraLax 17 g daily, and B complex daily. I believe the patient had a cardiac catheterization and other workup in the past, no blockages. PERSONAL HISTORY: Denies smoking, alcohol, or drug use. FAMILY HISTORY: Positive for kidney problems. REVIEW OF SYMPTOMS: Shortness of breath, but no fever. Rest of the 14-system was reviewed and negative. PHYSICAL EXAMINATION: GENERAL: The patient is not in any distress. VITAL SIGNS: Temperature 97, pulse 83, respirations 30, blood pressure 279/180, and 96% on nonrebreathing mask, now 100% on 3 L. HEENT: Head is atraumatic. Pupils equal. Oral cavity: No congestion. NECK: Supple. Thyroid not enlarged. JVD not elevated. CHEST: Symmetrical. CARDIOVASCULAR: S1, S2. LUNGS: Diminished breath sounds on the right side. ABDOMEN: Soft, no mass palpable. EXTERNAL GENITALIA: No Zamorano. RECTAL: Deferred. EXTREMITIES: No calf tenderness, no edema. AV shunt in the left arm. NEUROLOGIC: Moving all extremities. No focal deficits noted. The patient making conversation. LABORATORY DATA: Shows a white count 5.7, hemoglobin 14, and platelets 188. Electrolytes show sodium 137, potassium 4.7, chloride 95, bicarbonate 29, BUN 93, and creatinine 10.5. LFTs normal. Chest x-ray shows large right pleural effusion. FINAL IMPRESSION: 1. End-stage renal disease, missed dialysis for a week. 2. Malignant hypertension. 3. Recurrent right pleural effusion. 4. Hypertension. 5. Noncompliance. PLAN: At this time, he was admitted to the hospital. Renal is consulted. Dialysis today. I am not sure if he needs to get his pleural tap again. We will see how he does after dialysis and as mentioned, the patient is noncompliant. Prognosis is guarded. ROSALINO SERRANO MD DR: RENATO/savannah JOB#: [id number] / [id number]
[2019-11-27 11:00] VITALS: BP 166/112
--- NOTE | 2019-11-27 11:40 | NUR ---
SS following for discharge planning. SS reviewed pt chart and discussed with pt RN. Pt is from home and is currently requiring oxygen. Pt has outpatient dialysis at [facility], ; fax [phone], on Wednesday, Wednesday, and Wednesday. SS will continue to follow for discharge planning.
--- NOTE | 2019-11-27 12:56 | PDOC2 ---
CONSULT Date of Consult Date of Consult DATE: 11/27/19 TIME: 12:47 Reason for Consult Reason for Consult: ESRD Source Source: Chart review, Patient History of Present Illness Reason for Visit: Pt is a 54-year-old AA male ESRD on HD, Non compliance, recurrent pleural effusions. He missed HD for a week ,c/o feeling well, did not go to dialysis and was having shortness of breath, chest x-ray shows right pleural effusion Past Medical History Cardiovascular: HTN Pulmonary: Asthma CENTRAL NERVOUS SYSTEM: CVA, Periperal neuropathy GI: No pertinent hx Heme/Onc: Anemia NOS Hepatobiliary: No pertinent hx Psych: Anxiety Infectious disease: No pertinent hx Renal/: Chronic renal failure Endocrine: No pertinent hx, Hyperparathyroidism Past Surgical History Past Surgical History: Hernia Repair, Other Family History Family History: Heart Disease, Hypertension, Stroke Social History ALCOHOL: none Drugs: None Lives: with Family Current Medications Current Medications Current Medications Clonidine HCl (Catapres) 0.1 mg 1X ONCE PO Last administered on 11/27/19at 04:47; Start 11/27/19 at 04:30; Stop 11/27/19 at 04:31; Status DC Hydromorphone HCl (Dilaudid) 0.5 mg 1X ONCE SQ Last administered on 11/27/19at 04:45; Start 11/27/19 at 05:00; Stop 11/27/19 at 05:01; Status DC Labetalol HCl (Normodyne Iv Push) 40 mg 1X ONCE IVP Last administered on 11/27/19at 05:09; Start 11/27/19 at 05:30; Stop 11/27/19 at 05:31; Status DC Sodium Chloride 1,000 ml @ 1,000 mls/hr Q1H PRN IV hypotension; Start 11/27/19 at 07:57; Stop 11/27/19 at 13:56 Diphenhydramine HCl (Benadryl) 25 mg 1X PRN PRN IV ITCHING; Start 11/27/19 at 08:00; Stop 11/28/19 at 07:59 Diphenhydramine HCl (Benadryl) 25 mg 1X PRN PRN IV ITCHING; Start 11/27/19 at 08:00; Stop 11/28/19 at 07:59 Sodium Chloride 1,000 ml @ 400 mls/hr Q2H30M PRN IV PATENCY; Start 11/27/19 at 07:57; Stop 11/27/19 at 19:56 Info (PHARMACY MONITORING -- do not chart) 1 each PRN DAILY PRN MC SEE COMMENTS; Start 11/27/19 at 08:00 Albuterol Sulfate (Ventolin Neb Soln) 2.5 mg PRN Q4HRS PRN NEB SHORTNESS OF BREATH; Start 11/27/19 at 09:00 Amlodipine Besylate (Norvasc) 10 mg DAILY PO Last administered on 11/27/19at 09:37; Start 11/27/19 at 09:00 Aspirin (Ecotrin) 325 mg DAILYWBKFT PO ; Start 11/28/19 at 08:00 Carvedilol (Coreg) 6.25 mg BID PO Last administered on 11/27/19at 09:38; Start 11/27/19 at 09:00 Cetirizine HCl (ZyrTEC) 10 mg DAILY PO Last administered on 11/27/19at 09:38; Start 11/27/19 at 09:00 Docusate Sodium (Colace) 100 mg PRN DAILY PRN PO CONSTIPATION; Start 11/27/19 at 09:00 Duloxetine HCl (Cymbalta) 30 mg DAILY PO Last administered on 11/27/19at 09:37; Start 11/27/19 at 09:00 Hydralazine HCl (Apresoline) 50 mg BID PO Last administered on 11/27/19at 09:37; Start 11/27/19 at 09:00 Isosorbide Mononitrate (Imdur) 30 mg DAILY PO Last administered on 11/27/19at 09:37; Start 11/27/19 at 09:00 Polyethylene Glycol (miraLAX PACKET) 17 gm PRN DAILY PRN PO CONSTIPATION; Start 11/27/19 at 09:00 Vitamin B Complex/ Vitamin C (Rosy-Lance) 1 tab DAILY PO Last administered on 11/27/19at 09:37; Start 11/27/19 at 09:00 Active Scripts Active Amlodipine Besylate 10 Mg Tablet 10 Mg PO DAILY 30 Days Colace (Docusate Sodium) 100 Mg Capsule 100 Mg PO DAILY PRN Polyethylene Glycol 3350 17 Gm Powd.pack 17 Gm PO DAILY PRN Proair Hfa (Albuterol Sulfate) 8.5 Gm Hfa.aer.ad 2.5 Mg NEB PRN Q4HRS PRN 30 Days Cetirizine Hcl 10 Mg Tablet 10 Mg PO DAILY 30 Days Aspirin Ec (Aspirin) 325 Mg Tablet. 325 Mg PO DAILYWBKFT 30 Days Reported Rosy-Lance Rx Tablet (Vit B Cmplx 3/Fa/Vit C/Biotin) 1 Each Tablet 1 Tab PO DAILY 30 Days Carvedilol 6.25 Mg Tablet 6.25 Mg PO BID Isosorbide Mononitrate Er (Isosorbide Mononitrate) 30 Mg Tab.er.24h 1 Tab PO DAILY Cymbalta (Duloxetine Hcl) 30 Mg Capsule. 1 Cap PO DAILY Hydralazine Hcl 50 Mg Tablet 1 Tab PO BID Allergies Allergies: Coded Allergies: lisinopril (Verified Allergy, Severe, Swelling, 01/18/19) codeine (Verified Allergy, Intermediate, itching, 01/18/19) TAKES LORTAB AT HOME IN THE PAST ROS Review of System Per HPI, rest negative Physical Exam Physical Exam GENERAL: NAD HEENT: OM moist NECK: Supple. LUNGS: Diminished breath sounds on the right side. CARDIOVASCULAR: S1, S2. ABDOMEN: firmness in the middle abdomen . : No Zamorano EXTREMITIES: no edema. NEURO- Grossly Normal DERM - No rash Vital Signs Vital Signs Date Time Temp Pulse Resp B/P (MAP) Pulse Ox O2 Delivery O2 Flow Rate FiO2 11/27/19 11:00 97.4 50 18 166/112 (130) 91 Room Air 2.0 97.4 Assessment & Plan ESRD - On HD MWF, transitioned from PD to HD Dialysis Today , discussed Orders with [place] Chronic Non compliances, misses for weeks at a time, No HD for 1 week Acute respiratory failure with recurrent large right pleural effusion. Recent CxR- Large right pleural effusion, previously moderate. Hx of Recurrent right pleural effusion and Thoracentesis s/p thoracentesis on 10/24 1.7 Lt removed Acute on chronic diastolic heart failure in the setting of uncontrolled HTN Accelerated hypertension; - Non compliance with HD and meds Cath 04/29 without any significant CAD. Chronic Noncompliance Labs Labs Laboratory Tests Test 11/27/19 04:07 White Blood Count 5.7 x10^3/uL (4.0-11.0) Red Blood Count 4.90 x10^6/uL (4.30-5.70) Hemoglobin 14.1 g/dL (13.0-17.5) Hematocrit 43.1 % (39.0-53.0) Mean Corpuscular Volume 88 fL (79-100) Mean Corpuscular Hemoglobin 29 pg (25-35) Mean Corpuscular Hemoglobin Concent 33 g/dL (31-37) Red Cell Distribution Width 17.4 % (11.5-14.5) Platelet Count 188 x10^3/uL (140-400) Neutrophils (%) (Auto) 68 % (31-73) Lymphocytes (%) (Auto) 12 % (24-48) Monocytes (%) (Auto) 15 % (0-9) Eosinophils (%) (Auto) 4 % (0-3) Basophils (%) (Auto) 2 % (0-3) Neutrophils # (Auto) 3.9 x10^3/uL (1.8-7.7) Lymphocytes # (Auto) 0.7 x10^3/uL (1.0-4.8) Monocytes # (Auto) 0.9 x10^3/uL (0.0-1.1) Eosinophils # (Auto) 0.2 x10^3/uL (0.0-0.7) Basophils # (Auto) 0.1 x10^3/uL (0.0-0.2) Sodium Level 137 mmol/L (136-145) Potassium Level 4.7 mmol/L (3.5-5.1) Chloride Level 95 mmol/L (98-107) Carbon Dioxide Level 29 mmol/L (21-32) Anion Gap 13 (6-14) Blood Urea Nitrogen 93 mg/dL (8-26) Creatinine 10.5 mg/dL (0.7-1.3) Estimated GFR (Cockcroft-Gault) 6.2 BUN/Creatinine Ratio 9 (6-20) Glucose Level 113 mg/dL (70-99) Calcium Level 9.2 mg/dL (8.5-10.1) Total Bilirubin 0.8 mg/dL (0.2-1.0) Aspartate Amino Transf (AST/SGOT) 14 U/L (15-37) Alanine Aminotransferase (ALT/SGPT) 27 U/L (16-63) Alkaline Phosphatase 167 U/L (46-116) Total Protein 8.1 g/dL (6.4-8.2) Albumin 3.2 g/dL (3.4-5.0) Albumin/Globulin Ratio 0.7 (1.0-1.7) Laboratory Tests Test 11/27/19 04:07 White Blood Count 5.7 x10^3/uL (4.0-11.0) Red Blood Count 4.90 x10^6/uL (4.30-5.70) Hemoglobin 14.1 g/dL (13.0-17.5) Hematocrit 43.1 % (39.0-53.0) Mean Corpuscular Volume 88 fL (79-100) Mean Corpuscular Hemoglobin 29 pg (25-35) Mean Corpuscular Hemoglobin Concent 33 g/dL (31-37) Red Cell Distribution Width 17.4 % (11.5-14.5) Platelet Count 188 x10^3/uL (140-400) Neutrophils (%) (Auto) 68 % (31-73) Lymphocytes (%) (Auto) 12 % (24-48) Monocytes (%) (Auto) 15 % (0-9) Eosinophils (%) (Auto) 4 % (0-3) Basophils (%) (Auto) 2 % (0-3) Neutrophils # (Auto) 3.9 x10^3/uL (1.8-7.7) Lymphocytes # (Auto) 0.7 x10^3/uL (1.0-4.8) Monocytes # (Auto) 0.9 x10^3/uL (0.0-1.1) Eosinophils # (Auto) 0.2 x10^3/uL (0.0-0.7) Basophils # (Auto) 0.1 x10^3/uL (0.0-0.2) Sodium Level 137 mmol/L (136-145) Potassium Level 4.7 mmol/L (3.5-5.1) Chloride Level 95 mmol/L (98-107) Carbon Dioxide Level 29 mmol/L (21-32) Anion Gap 13 (6-14) Blood Urea Nitrogen 93 mg/dL (8-26) Creatinine 10.5 mg/dL (0.7-1.3) Estimated GFR (Cockcroft-Gault) 6.2 BUN/Creatinine Ratio 9 (6-20) Glucose Level 113 mg/dL (70-99) Calcium Level 9.2 mg/dL (8.5-10.1) Total Bilirubin 0.8 mg/dL (0.2-1.0) Aspartate Amino Transf (AST/SGOT) 14 U/L (15-37) Alanine Aminotransferase (ALT/SGPT) 27 U/L (16-63) Alkaline Phosphatase 167 U/L (46-116) Total Protein 8.1 g/dL (6.4-8.2) Albumin 3.2 g/dL (3.4-5.0) Albumin/Globulin Ratio 0.7 (1.0-1.7) Review All relevant outside records, renal labs, imaging studies, telemetry/EKG's were reviewed. MAGDIEL VOGEL MD Nov 27, 2019 12:56
[2019-11-27 15:00] VITALS: BP 152/106
[2019-11-27 19:00] VITALS: BP 162/107
[2019-11-27 23:00] VITALS: BP 102/70
[2019-11-28] MEDS: ONDANSETRON PF 4 MG/2 ML VIAL. IVP PRN ×2 (02:24→08:44)
[2019-11-28] MEDS: HYDROcodone/APAP 5/325MG 1 TAB TABLET PO PRN ×2 (02:30→17:48)
[2019-11-28 03:00] VITALS: BP 128/100
[2019-11-28 07:00] VITALS: BP 132/95
--- NOTE | 2019-11-28 08:13 | EKG ---
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
--- NOTE | 2019-11-28 08:19 | EKG ---
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
[2019-11-28] MEDS: DULoxetine HCL 30 MG CAPSULE.DR PO SCH (08:37)
[2019-11-28] MEDS: FOLIC/VIT B COMP W-C (RENAL) TABLET. PO SCH (08:37)
[2019-11-28] MEDS: ASPIRIN ENTERIC COATED 325 MG TABLET.DR. PO SCH (08:37)
[2019-11-28] MEDS: CETIRIZINE HCL 10 MG TABLET. PO SCH (08:37)
[2019-11-28] MEDS: amLODIPine BESYLATE 10 MG TABLET PO SCH (08:40)
[2019-11-28] MEDS: ISOSORBIDE MONONITRATE ER 30 MG TAB.ER.24H PO SCH (08:40)
[2019-11-28] MEDS: CARVEDILOL 6.25 MG TABLET. PO SCH ×2 (08:40→21:13)
--- NOTE | 2019-11-28 08:46 | PDOC ---
PROGRESS NOTES Date of Service: DATE: 11/28/19 TIME: 08:43 Subjective Subjective want fluid removed from lungs Objective Objective Vital Signs Date Time Temp Pulse Resp B/P (MAP) Pulse Ox O2 Delivery O2 Flow Rate FiO2 11/28/19 08:40 58 132/95 11/28/19 03:30 21 Nasal Cannula 2.0 11/28/19 03:00 98.4 98 98.4 Intake and Output 11/28/19 07:00 Intake Total 360 ml Balance 360 ml Intake Oral 360 ml # Voids 1 # Bowel Movements 1 Physical Exam Abdomen: Other (distended and umblical and inguinal hernias) Heart: Regular rate, Normal S1, Normal S2 Extremities: No clubbing General: Alert HEENT: PERRLA Lungs: Other (dec breath sounds rt base) Neck: Supple Neuro: Normal speech Psych/Mental Status: Mood NL Skin: No breakdown Assessment Assessment FINAL IMPRESSION: 1. End-stage renal disease, missed dialysis for a week. 2. Malignant hypertension. 3. Recurrent right pleural effusion. 4. Hypertension. 5. Noncompliance. PLAN:Dialysis done yesterday IR consult for pleural tap today pt want surgical consult for hernias. labs reviewed. spoke with RN. At this time, he was admitted to the hospital. Renal is consulted. Dialysis today. I am not sure if he needs to get his pleural tap again. We will see how he does after dialysis and as mentioned, the patient is noncompliant. Prognosis is guarded. Comment Review of Relevant I have reviewed the following items benjamin (where applicable) has been applied. Medications Current Medications Acetaminophen/ Hydrocodone Bitart (Lortab 5/325) 1 tab PRN Q6HRS PRN PO PAIN Last administered on 11/28/19at 02:30; Start 11/27/19 at 19:30 Albuterol Sulfate (Ventolin Neb Soln) 2.5 mg PRN Q4HRS PRN NEB SHORTNESS OF BREATH; Start 11/27/19 at 09:00 Amlodipine Besylate (Norvasc) 10 mg DAILY PO Last administered on 11/28/19at 08:40; Start 11/27/19 at 09:00 Aspirin (Ecotrin) 325 mg DAILYWBKFT PO Last administered on 11/28/19at 08:37; Start 11/28/19 at 08:00 Carvedilol (Coreg) 6.25 mg BID PO Last administered on 11/27/19at 21:42; Start 11/27/19 at 09:00 Cetirizine HCl (ZyrTEC) 10 mg DAILY PO Last administered on 11/28/19at 08:37; Start 11/27/19 at 09:00 Docusate Sodium (Colace) 100 mg PRN DAILY PRN PO CONSTIPATION; Start 11/27/19 at 09:00 Duloxetine HCl (Cymbalta) 30 mg DAILY PO Last administered on 11/28/19at 08:37; Start 11/27/19 at 09:00 Hydralazine HCl (Apresoline) 50 mg BID PO Last administered on 11/28/19at 08:39; Start 11/27/19 at 09:00 Isosorbide Mononitrate (Imdur) 30 mg DAILY PO Last administered on 11/28/19at 08:40; Start 11/27/19 at 09:00 Ondansetron HCl (Zofran) 4 mg PRN Q6HRS PRN IVP NAUSEA/VOMITING 1ST CHOICE Last administered on 11/28/19at 02:24; Start 11/28/19 at 02:15 Polyethylene Glycol (miraLAX PACKET) 17 gm PRN DAILY PRN PO CONSTIPATION; Start 11/27/19 at 09:00 Vitamin B Complex/ Vitamin C (Rosy-Lance) 1 tab DAILY PO Last administered on 11/28/19at 08:37; Start 11/27/19 at 09:00 Vitals/I & O Vital Sign - Last 24 Hours 11/27/19 11/27/19 11/27/19 11/27/19 08:53 09:37 09:37 09:37 Pulse 54 B/P (MAP) 166/81 166/81 166/81 O2 Delivery Nasal Cannula O2 Flow Rate 2.0 11/27/19 11/27/19 11/27/19 11/27/19 09:38 11:00 12:50 15:00 Temp 97.4 96.0 97.4 96.0 Pulse 54 50 46 Resp 18 16 B/P (MAP) 166/81 166/112 (130) 152/106 (121) Pulse Ox 91 94 100 O2 Delivery Room Air Nasal Cannula Nasal Cannula O2 Flow Rate 2.0 2.0 2.0 8/11/27/19 11/27/19 11/27/19 19:00 20:00 21:40 21:42 Temp 98.3 98.3 Pulse 65 65 65 Resp 19 B/P (MAP) 162/107 (125) 162/107 162/107 Pulse Ox 91 O2 Delivery Room Air Nasal Cannula O2 Flow Rate 3.0 11/27/19 11/28/19 11/28/19 11/28/19 23:00 02:30 03:00 03:30 Temp 97.7 98.4 97.7 98.4 Pulse 75 52 Resp 18 19 21 21 B/P (MAP) 102/70 (81) 128/100 (109) Pulse Ox 98 98 O2 Delivery Nasal Cannula Nasal Cannula Nasal Cannula Nasal Cannula O2 Flow Rate 2.0 2.0 2.0 2.0 11/28/19 11/28/19 11/28/19 11/28/19 08:39 08:40 08:40 08:40 Pulse 58 58 58 58 B/P (MAP) 132/95 132/95 132/95 132/95 Intake and Output 11/27/19 11/27/19 11/28/19 15:00 23:00 07:00 Intake Total 120 ml 240 ml Balance 120 ml 240 ml Justicifation of Admission Dx: Justifications for Admission: Justification of Admission Dx: N/A Chronic Renal Failure: Significant Resp Findings ROSALINO SERRANO MD Nov 28, 2019 08:46
[2019-11-28 09:55] LABS: PROTHROMBIN TIME PATIENT 15.6 SEC (11.7-14.0)
--- NOTE | 2019-11-28 10:22 | NUR ---
SS following up with discharge planning. SS reviewed pt chart and discussed with pt RN. Pt is currently requiring oxygen. Consults for Dr. Foss and IR for Thoracentesis. Per RN, pt having abdominal pain and nausea. SS will continue to follow for discharge planning.
[2019-11-28 11:00] VITALS: BP 138/95
--- NOTE | 2019-11-28 11:06 | PDOC ---
DATE OF SERVICE DATE: 11/28/19 TIME: 11:04 SUBJECTIVE ROS sleeping comfortably, No resp distress Wants fluid removed from lungs OBJECTIVE Vital Signs Vital Signs Date Time Temp Pulse Resp B/P (MAP) Pulse Ox O2 Delivery O2 Flow Rate FiO2 11/28/19 08:40 58 132/95 11/28/19 08:00 Nasal Cannula 2.0 11/28/19 07:00 97.6 16 88 97.6 I & 0 Intake and Output 11/28/19 07:00 Intake Total 360 ml Balance 360 ml Intake Oral 360 ml # Voids 1 # Bowel Movements 1 PHYSICAL EXAM Physical Exam GENERAL: NAD HEENT: OM moist NECK: Supple. LUNGS: Diminished breath sounds on the right side. CARDIOVASCULAR: S1, S2. ABDOMEN: firmness in the middle abdomen . : No Zamorano EXTREMITIES: no edema. NEURO- Grossly Normal DERM - No rash DIAGNOSIS/ASSESSMENT Assessment & Plan ESRD - On HD MWF, transitioned from PD to HD No indication for HD today Chronic Non compliances, misses for weeks at a time, No HD for 1 week Acute respiratory failure with recurrent large right pleural effusion. Recent CxR- Large right pleural effusion, previously moderate. IR consulted for Thoracentesis Hx of Recurrent right pleural effusion and Thoracentesis s/p thoracentesis on 10/24 1.7 Lt removed Acute on chronic diastolic heart failure in the setting of uncontrolled HTN Accelerated hypertension; - Non compliance with HD and meds Cath 04/29 without any significant CAD. Chronic Noncompliance COMMENT/RELEVANT DATA Meds Current Medications Medications (Trade) Dose Ordered Sig/Sascha Start Time Stop Time Status Last Admin Dose Admin Acetaminophen/ Hydrocodone Bitart (Lortab 5/325) 1 tab PRN Q6HRS PRN 11/27/19 19:30 11/28/19 02:30 1 TAB Albuterol Sulfate (Ventolin Neb Soln) 2.5 mg PRN Q4HRS PRN 11/27/19 09:00 Amlodipine Besylate (Norvasc) 10 mg DAILY 11/27/19 09:00 11/28/19 08:40 10 MG Aspirin (Ecotrin) 325 mg DAILYWBKFT 11/28/19 08:00 11/28/19 08:37 325 MG Carvedilol (Coreg) 6.25 mg BID 11/27/19 09:00 11/27/19 21:42 6.25 MG Cetirizine HCl (ZyrTEC) 10 mg DAILY 11/27/19 09:00 11/28/19 08:37 10 MG Clonidine HCl (Catapres) 0.1 mg 1X ONCE 11/27/19 04:30 11/27/19 04:31 DC 11/27/19 04:47 0.1 MG Diphenhydramine HCl (Benadryl) 25 mg 1X PRN PRN 11/27/19 08:00 11/28/19 07:59 DC Docusate Sodium (Colace) 100 mg PRN DAILY PRN 11/27/19 09:00 Duloxetine HCl (Cymbalta) 30 mg DAILY 11/27/19 09:00 11/28/19 08:37 30 MG Hydralazine HCl (Apresoline) 50 mg BID 11/27/19 09:00 11/28/19 08:39 50 MG Hydromorphone HCl (Dilaudid) 0.5 mg 1X ONCE 11/27/19 05:00 11/27/19 05:01 DC 11/27/19 04:45 0.5 MG Info (PHARMACY MONITORING -- do not chart) 1 each PRN DAILY PRN 11/27/19 08:00 Isosorbide Mononitrate (Imdur) 30 mg DAILY 11/27/19 09:00 11/28/19 08:40 30 MG Labetalol HCl (Normodyne Iv Push) 40 mg 1X ONCE 11/27/19 05:30 11/27/19 05:31 DC 11/27/19 05:09 40 MG Ondansetron HCl (Zofran) 4 mg PRN Q6HRS PRN 11/28/19 02:15 11/28/19 08:44 4 MG Polyethylene Glycol (miraLAX PACKET) 17 gm PRN DAILY PRN 11/27/19 09:00 Sodium Chloride 1,000 ml @ 400 mls/hr Q2H30M PRN 11/27/19 07:57 11/27/19 19:56 DC Vitamin B Complex/ Vitamin C (Rosy-Lance) 1 tab DAILY 11/27/19 09:00 11/28/19 08:37 1 TAB Lab Laboratory Tests Test 11/28/19 09:35 Prothrombin Time 15.6 SEC (11.7-14.0) Prothromb Time International Ratio 1.3 (0.8-1.1) Results All relevant outside records, renal labs, imaging studies, telemetry/EKG's were reviewed. Justicifation of Admission Dx: Justifications for Admission: Justification of Admission Dx: N/A Chronic Renal Failure: Significant Resp Findings MAGDIEL VOGEL MD Nov 28, 2019 11:06
--- NOTE | 2019-11-28 11:57 | PDOC2 ---
BERTIN MACK [employer] SPECIALIST 11/28/19 1157: CONSULT Date of Consult Date of Consult DATE: 11/28/19 TIME: 11:49 Reason for Consult Reason for Consult: hernia Referring Physician Referring Physician: Dr yu Identification/Chief Complaint Chief Complaint SOA Source Source: Chart review, Patient History of Present Illness Reason for Visit: Significant history of ESRD--did not go to dialysis, became SOA. Hx of pleural effusions, thoracentesis in past. Noted PD cath removal and umbo hernia repair in [address] Jones. Surgical consult for LIH and hernia to umbo area Past Medical History Cardiovascular: HTN Pulmonary: Asthma CENTRAL NERVOUS SYSTEM: CVA, Periperal neuropathy GI: No pertinent hx Heme/Onc: Anemia NOS Hepatobiliary: No pertinent hx Psych: Anxiety Infectious disease: No pertinent hx Renal/: Chronic renal failure Endocrine: No pertinent hx, Hyperparathyroidism Past Surgical History Past Surgical History: Hernia Repair, Other (PD cath placement and removal ) Family History Family History: Heart Disease, Hypertension, Stroke Social History ALCOHOL: none Drugs: None Lives: with Family Current Medications Current Medications Current Medications Clonidine HCl (Catapres) 0.1 mg 1X ONCE PO Last administered on 11/27/19at 04:47; Start 11/27/19 at 04:30; Stop 11/27/19 at 04:31; Status DC Hydromorphone HCl (Dilaudid) 0.5 mg 1X ONCE SQ Last administered on 11/27/19at 04:45; Start 11/27/19 at 05:00; Stop 11/27/19 at 05:01; Status DC Labetalol HCl (Normodyne Iv Push) 40 mg 1X ONCE IVP Last administered on 11/27/19at 05:09; Start 11/27/19 at 05:30; Stop 11/27/19 at 05:31; Status DC Sodium Chloride 1,000 ml @ 1,000 mls/hr Q1H PRN IV hypotension; Start 11/27/19 at 07:57; Stop 11/27/19 at 13:56; Status DC Diphenhydramine HCl (Benadryl) 25 mg 1X PRN PRN IV ITCHING; Start 11/27/19 at 08:00; Stop 11/28/19 at 07:59; Status DC Diphenhydramine HCl (Benadryl) 25 mg 1X PRN PRN IV ITCHING; Start 11/27/19 at 08:00; Stop 11/28/19 at 07:59; Status DC Sodium Chloride 1,000 ml @ 400 mls/hr Q2H30M PRN IV PATENCY; Start 11/27/19 at 07:57; Stop 11/27/19 at 19:56; Status DC Info (PHARMACY MONITORING -- do not chart) 1 each PRN DAILY PRN MC SEE COMMENTS; Start 11/27/19 at 08:00 Albuterol Sulfate (Ventolin Neb Soln) 2.5 mg PRN Q4HRS PRN NEB SHORTNESS OF BREATH; Start 11/27/19 at 09:00 Amlodipine Besylate (Norvasc) 10 mg DAILY PO Last administered on 11/28/19at 08:40; Start 11/27/19 at 09:00 Aspirin (Ecotrin) 325 mg DAILYWBKFT PO Last administered on 11/28/19at 08:37; Start 11/28/19 at 08:00 Carvedilol (Coreg) 6.25 mg BID PO Last administered on 11/27/19at 21:42; Start 11/27/19 at 09:00 Cetirizine HCl (ZyrTEC) 10 mg DAILY PO Last administered on 11/28/19at 08:37; Start 11/27/19 at 09:00 Docusate Sodium (Colace) 100 mg PRN DAILY PRN PO HARD STOOLS; Start 11/27/19 at 09:00 Duloxetine HCl (Cymbalta) 30 mg DAILY PO Last administered on 11/28/19at 08:37; Start 11/27/19 at 09:00 Hydralazine HCl (Apresoline) 50 mg BID PO Last administered on 11/28/19at 08:39; Start 11/27/19 at 09:00 Isosorbide Mononitrate (Imdur) 30 mg DAILY PO Last administered on 11/28/19at 08:40; Start 11/27/19 at 09:00 Polyethylene Glycol (miraLAX PACKET) 17 gm PRN DAILY PRN PO CONSTIPATION; Start 11/27/19 at 09:00 Vitamin B Complex/ Vitamin C (Rosy-Lance) 1 tab DAILY PO Last administered on 11/28/19at 08:37; Start 11/27/19 at 09:00 Acetaminophen/ Hydrocodone Bitart (Lortab 5/325) 1 tab PRN Q6HRS PRN PO PAIN Last administered on 11/28/19at 02:30; Start 11/27/19 at 19:30 Ondansetron HCl (Zofran) 4 mg PRN Q6HRS PRN IVP NAUSEA/VOMITING 1ST CHOICE Last administered on 11/28/19at 08:44; Start 11/28/19 at 02:15 Active Scripts Active Amlodipine Besylate 10 Mg Tablet 10 Mg PO DAILY 30 Days Colace (Docusate Sodium) 100 Mg Capsule 100 Mg PO DAILY PRN Polyethylene Glycol 3350 17 Gm Powd.pack 17 Gm PO DAILY PRN Proair Hfa (Albuterol Sulfate) 8.5 Gm Hfa.aer.ad 2.5 Mg NEB PRN Q4HRS PRN 30 Days Cetirizine Hcl 10 Mg Tablet 10 Mg PO DAILY 30 Days Aspirin Ec (Aspirin) 325 Mg Tablet. 325 Mg PO DAILYWBKFT 30 Days Reported Rosy-Lance Rx Tablet (Vit B Cmplx 3/Fa/Vit C/Biotin) 1 Each Tablet 1 Tab PO DAILY 30 Days Carvedilol 6.25 Mg Tablet 6.25 Mg PO BID Isosorbide Mononitrate Er (Isosorbide Mononitrate) 30 Mg Tab.er.24h 1 Tab PO DAILY Cymbalta (Duloxetine Hcl) 30 Mg Capsule. 1 Cap PO DAILY Hydralazine Hcl 50 Mg Tablet 1 Tab PO BID Allergies Allergies: Coded Allergies: lisinopril (Verified Allergy, Severe, Swelling, 01/18/19) codeine (Verified Allergy, Intermediate, itching, 01/18/19) TAKES LORTAB AT HOME IN THE PAST ROS General: No: Chills, Other (fevers ) PSYCHOLOGICAL ROS: No: Anxiety, Depression Eyes: No Blurry vision, No Double vision HEENT: No: Heacaches, Sore Throat Hematological and Lymphatic: YES: Bleeding Problems; No: Blood Clots Respiratory: YES: Shortness of breath; No: Cough Cardiovascular: No Chest Pain, No Palpitations Gastrointestinal: No Nausea, No Vomiting Genitourinary: No Dysuria, No Hematuria Musculoskeletal: No Joint Pain, No Muscle Pain Neurological: No Impaired Coord/balance, No Numbness/Tingling Skin: No Pruritus, No Rash Physical Exam Physical Exam reducible LIH General: Alert, Oriented X3, Cooperative HEENT: Atraumatic, PERRLA Lungs: Other (diminished ) Heart: Regular rate, Normal S1, Normal S2 Abdomen: Soft, Other (compressable area to umbilical area--I can not appreciate a hernia defect(reviewed CT from 11/19)) Extremities: No clubbing, No cyanosis Skin: No rashes, No breakdown Neuro: Normal speech, Sensation intact Psych/Mental Status: Mental status NL, Mood NL Vitals VITALS Vital Signs Date Time Temp Pulse Resp B/P (MAP) Pulse Ox O2 Delivery O2 Flow Rate FiO2 11/28/19 11:00 97.6 60 18 138/95 (109) 95 Nasal Cannula 2.0 97.6 Labs Labs Laboratory Tests Test 11/27/19 04:07 11/28/19 09:35 White Blood Count 5.7 x10^3/uL (4.0-11.0) Red Blood Count 4.90 x10^6/uL (4.30-5.70) Hemoglobin 14.1 g/dL (13.0-17.5) Hematocrit 43.1 % (39.0-53.0) Mean Corpuscular Volume 88 fL (79-100) Mean Corpuscular Hemoglobin 29 pg (25-35) Mean Corpuscular Hemoglobin Concent 33 g/dL (31-37) Red Cell Distribution Width 17.4 % (11.5-14.5) Platelet Count 188 x10^3/uL (140-400) Neutrophils (%) (Auto) 68 % (31-73) Lymphocytes (%) (Auto) 12 % (24-48) Monocytes (%) (Auto) 15 % (0-9) Eosinophils (%) (Auto) 4 % (0-3) Basophils (%) (Auto) 2 % (0-3) Neutrophils # (Auto) 3.9 x10^3/uL (1.8-7.7) Lymphocytes # (Auto) 0.7 x10^3/uL (1.0-4.8) Monocytes # (Auto) 0.9 x10^3/uL (0.0-1.1) Eosinophils # (Auto) 0.2 x10^3/uL (0.0-0.7) Basophils # (Auto) 0.1 x10^3/uL (0.0-0.2) Sodium Level 137 mmol/L (136-145) Potassium Level 4.7 mmol/L (3.5-5.1) Chloride Level 95 mmol/L (98-107) Carbon Dioxide Level 29 mmol/L (21-32) Anion Gap 13 (6-14) Blood Urea Nitrogen 93 mg/dL (8-26) Creatinine 10.5 mg/dL (0.7-1.3) Estimated GFR (Cockcroft-Gault) 6.2 BUN/Creatinine Ratio 9 (6-20) Glucose Level 113 mg/dL (70-99) Calcium Level 9.2 mg/dL (8.5-10.1) Total Bilirubin 0.8 mg/dL (0.2-1.0) Aspartate Amino Transf (AST/SGOT) 14 U/L (15-37) Alanine Aminotransferase (ALT/SGPT) 27 U/L (16-63) Alkaline Phosphatase 167 U/L (46-116) Total Protein 8.1 g/dL (6.4-8.2) Albumin 3.2 g/dL (3.4-5.0) Albumin/Globulin Ratio 0.7 (1.0-1.7) Prothrombin Time 15.6 SEC (11.7-14.0) Prothromb Time International Ratio 1.3 (0.8-1.1) Laboratory Tests Test 11/28/19 09:35 Prothrombin Time 15.6 SEC (11.7-14.0) Prothromb Time International Ratio 1.3 (0.8-1.1) Assessment/Plan Assessment/Plan LIH reducible Small area to umbo that bulges, however i can not appreciate a defect--CT from 11/19--Supraumbilical ventral abdominal wall demonstrates an ovoid 3 x 1 cm fatty density with a mild peripheral dense wall at site of prior abdominalhematoma, may represent mild scarring, there is no discrete medication through the abdominal wall to confirm a hernia sac, a fatty hernia sac with a tiny neck poorly defined on this exam is a secondary consideration. ESRD pleural effusions poor surgical candidate will review with STELLA Lopez MD 11/29/19 3863: CONSULT Assessment/Plan Assessment/Plan Above reviewed; no bowel involvement of hernias; priority to medical issues; can FU in office for elective hernia repair as desired BERTIN MACK APRN Nov 28, 2019 11:57 STELLA CHIU MD Nov 29, 2019 07:32
[2019-11-28 15:15] VITALS: BP 141/87
[2019-11-28 19:00] VITALS: BP 121/83
[2019-11-28 22:50] VITALS: BP 139/101
[2019-11-29] VITALS (7 sets, daily range): BP systolic 114–159; BP diastolic 78–111
[2019-11-29] MEDS ORDERED: LIDOCAINE WITH 8.4% SOD BICARB 3 ML DISP.SYRIN. ONE (07:54)
[2019-11-29] MEDS ORDERED: LIDOCAINE WITH 8.4% SOD BICARB 3 ML DISP.SYRIN. INJ ONE (08:00)
[2019-11-29] MEDS: ASPIRIN ENTERIC COATED 325 MG TABLET.DR. PO SCH (08:00)
[2019-11-29 08:09] LABS: CALCIUM 8.4 mg/dL (8.5-10.1); CREATININE 8.8 mg/dL (0.7-1.3); GFR 7.6
[2019-11-29 08:19] LABS: POTASSIUM 5.3 mmol/L (3.5-5.1)
--- NOTE | 2019-11-29 08:40 | PDOC ---
PROGRESS NOTES Date of Service: DATE: 11/29/19 TIME: 08:39 Subjective Subjective sob Objective Objective Vital Signs Date Time Temp Pulse Resp B/P (MAP) Pulse Ox O2 Delivery O2 Flow Rate FiO2 11/29/19 08:33 56 142/95 (111) 100 Nasal Cannula 2.0 11/29/19 03:05 20 11/28/19 22:50 98.0 98.0 Intake and Output 11/29/19 07:00 Intake Total 170 ml Output Total 0 ml Balance 170 ml Intake Oral 170 ml Output Urine Total 0 ml Physical Exam Abdomen: Soft, Other (compressable area to umbilical area--I can not appreciate a hernia defect(reviewed CT from 11/19)) Heart: Regular rate, Normal S1, Normal S2 Extremities: No clubbing, No cyanosis General: Alert, Oriented X3, Cooperative HEENT: Atraumatic, PERRLA Lungs: Other (diminished ) Neck: Supple Neuro: Normal speech, Sensation intact Psych/Mental Status: Mental status NL, Mood NL Skin: No rashes, No breakdown Assessment Assessment FINAL IMPRESSION: 1. End-stage renal disease, missed dialysis for a week. 2. Malignant hypertension. 3. Recurrent right pleural effusion. 4. Hypertension. 5. Noncompliance. PLAN:Thoracocentecis rt side today by IR Dialysis later today IR consult for pleural tap today pt want surgical consult for hernias. labs reviewed. spoke with RN. At this time, he was admitted to the hospital. Renal is consulted. Dialysis today. I am not sure if he needs to get his pleural tap again. We will see how he does after dialysis and as mentioned, the patient is noncompliant. Prognosis is guarded. Comment Review of Relevant I have reviewed the following items benjamin (where applicable) has been applied. Labs Laboratory Tests Test 11/28/19 09:35 11/29/19 04:30 Prothrombin Time 15.6 SEC (11.7-14.0) Prothromb Time International Ratio 1.3 (0.8-1.1) Sodium Level 136 mmol/L (136-145) Potassium Level 5.3 mmol/L (3.5-5.1) Chloride Level 95 mmol/L (98-107) Carbon Dioxide Level 26 mmol/L (21-32) Anion Gap 15 (6-14) Blood Urea Nitrogen 70 mg/dL (8-26) Creatinine 8.8 mg/dL (0.7-1.3) Estimated GFR (Cockcroft-Gault) 7.6 Glucose Level 141 mg/dL (70-99) Calcium Level 8.4 mg/dL (8.5-10.1) Medications Current Medications Lidocaine HCl (Buffered Lidocaine 1%) 3 ml STK-MED ONCE .ROUTE ; Start 11/29/19 at 07:54; Stop 11/29/19 at 07:54; Status DC Lidocaine HCl (Buffered Lidocaine 1%) 6 ml 1X ONCE INJ Last administered on 11/29/19at 08:25; Start 11/29/19 at 08:00; Stop 11/29/19 at 08:01; Status DC Vitals/I & O Vital Sign - Last 24 Hours 11/28/19 11/28/19 11/28/19 11/28/19 08:40 08:40 08:40 11:00 Temp 97.6 97.6 Pulse 58 58 58 60 Resp 18 B/P (MAP) 132/95 132/95 132/95 138/95 (109) Pulse Ox 95 O2 Delivery Nasal Cannula O2 Flow Rate 2.0 11/28/19 11/28/19 11/28/19 11/28/19 15:15 17:48 19:00 20:00 Temp 97.6 97.3 97.6 97.3 Pulse 59 63 Resp 16 18 B/P (MAP) 141/87 (105) 121/83 (96) Pulse Ox 95 80 O2 Delivery Room Air Room Air Room Air Nasal Cannula O2 Flow Rate 2.0 11/28/19 11/28/19 11/28/19 11/29/19 21:12 21:13 22:50 03:05 Temp 98.0 98.0 Pulse 63 63 64 92 Resp 20 20 B/P (MAP) 121/83 121/83 139/101 (114) 114/78 (90) Pulse Ox 93 92 O2 Delivery Nasal Cannula Nasal Cannula O2 Flow Rate 2.0 2.0 11/29/19 11/29/19 08:23 08:33 Pulse 58 56 B/P (MAP) 129/83 (98) 142/95 (111) Pulse Ox 99 100 O2 Delivery Nasal Cannula Nasal Cannula O2 Flow Rate 2.0 2.0 Intake and Output 8/18/20 8/18/20 8/19/20 15:00 23:00 07:00 Intake Total 170 ml Output Total 0 ml Balance 170 ml 0 ml Justicifation of Admission Dx: Justifications for Admission: Justification of Admission Dx: Yes Chronic Renal Failure: Uremic Symptoms ROSALINO SERRANO MD Nov 29, 2019 08:40
[2019-11-29] MEDS: amLODIPine BESYLATE 10 MG TABLET PO SCH (09:00)
[2019-11-29] MEDS: FOLIC/VIT B COMP W-C (RENAL) TABLET. PO SCH (09:00)
[2019-11-29] MEDS: CARVEDILOL 6.25 MG TABLET. PO SCH ×2 (09:00→21:37)
[2019-11-29] MEDS: ISOSORBIDE MONONITRATE ER 30 MG TAB.ER.24H PO SCH (09:00)
[2019-11-29] MEDS: CETIRIZINE HCL 10 MG TABLET. PO SCH ×2 (09:00→10:59)
[2019-11-29] MEDS ORDERED: IV NORMAL SALINE 1000ML BAG 1,000 ML IV PRN (09:00)
[2019-11-29] MEDS: DULoxetine HCL 30 MG CAPSULE.DR PO SCH (09:00)
--- NOTE | 2019-11-29 09:13 | PDOC ---
DATE OF SERVICE DATE: 11/29/19 TIME: 09:12 SUBJECTIVE ROS seen on HD, states breathing better since Thoracentesis OBJECTIVE Vital Signs Vital Signs Date Time Temp Pulse Resp B/P (MAP) Pulse Ox O2 Delivery O2 Flow Rate FiO2 11/29/19 08:33 56 142/95 (111) 100 Nasal Cannula 2.0 11/29/19 03:05 20 11/28/19 22:50 98.0 98.0 I & 0 Intake and Output 11/29/19 07:00 Intake Total 170 ml Output Total 0 ml Balance 170 ml Intake Oral 170 ml Output Urine Total 0 ml PHYSICAL EXAM Physical Exam GENERAL: NAD HEENT: OM moist , On o2 by NC NECK: Supple. LUNGS: Diminished breath sounds on the right side. CARDIOVASCULAR: S1, S2. ABDOMEN: firmness in the middle abdomen . : No Zamorano EXTREMITIES: no edema. NEURO- Grossly Normal DERM - No rash DIAGNOSIS/ASSESSMENT Assessment & Plan ESRD - On HD MWF, transitioned from PD to HD Seen on HD, tolerating well , continue as ordered, Miguel Cheatham Chronic Non compliances, misses for weeks at a time, No HD for 1 week HyperKalemia- Mild , HD today Acute respiratory failure with recurrent large right pleural effusion. Recent CxR- Large right pleural effusion, previously moderate. S/P Thoracentesis 2 lts fluid removal Hx of Recurrent right pleural effusion and Thoracentesis s/p thoracentesis on 10/24 1.7 Lt removed Acute on chronic diastolic heart failure in the setting of uncontrolled HTN Accelerated hypertension; - Non compliance with HD and meds Cath 04/29 without any significant CAD. Chronic Noncompliance with HD, Diet and Meds COMMENT/RELEVANT DATA Meds Current Medications Medications (Trade) Dose Ordered Sig/Sascha Start Time Stop Time Status Last Admin Dose Admin Acetaminophen/ Hydrocodone Bitart (Lortab 5/325) 1 tab PRN Q6HRS PRN 11/27/19 19:30 11/28/19 17:48 1 TAB Albuterol Sulfate (Ventolin Neb Soln) 2.5 mg PRN Q4HRS PRN 11/27/19 09:00 Amlodipine Besylate (Norvasc) 10 mg DAILY 11/27/19 09:00 11/28/19 08:40 10 MG Aspirin (Ecotrin) 325 mg DAILYWBKFT 11/28/19 08:00 11/28/19 08:37 325 MG Carvedilol (Coreg) 6.25 mg BID 11/27/19 09:00 11/28/19 21:13 6.25 MG Cetirizine HCl (ZyrTEC) 10 mg DAILY 11/27/19 09:00 11/28/19 08:37 10 MG Clonidine HCl (Catapres) 0.1 mg 1X ONCE 11/27/19 04:30 11/27/19 04:31 DC 11/27/19 04:47 0.1 MG Diphenhydramine HCl (Benadryl) 25 mg 1X PRN PRN 11/27/19 08:00 11/28/19 07:59 DC Docusate Sodium (Colace) 100 mg PRN DAILY PRN 11/27/19 09:00 Duloxetine HCl (Cymbalta) 30 mg DAILY 11/27/19 09:00 11/28/19 08:37 30 MG Hydralazine HCl (Apresoline) 50 mg BID 11/27/19 09:00 11/28/19 21:12 50 MG Hydromorphone HCl (Dilaudid) 0.5 mg 1X ONCE 11/27/19 05:00 11/27/19 05:01 DC 11/27/19 04:45 0.5 MG Info (PHARMACY MONITORING -- do not chart) 1 each PRN DAILY PRN 11/27/19 08:00 Isosorbide Mononitrate (Imdur) 30 mg DAILY 11/27/19 09:00 11/28/19 08:40 30 MG Labetalol HCl (Normodyne Iv Push) 40 mg 1X ONCE 11/27/19 05:30 11/27/19 05:31 DC 11/27/19 05:09 40 MG Lidocaine HCl (Buffered Lidocaine 1%) 6 ml 1X ONCE 11/29/19 08:00 11/29/19 08:01 DC 11/29/19 08:25 6 ML Ondansetron HCl (Zofran) 4 mg PRN Q6HRS PRN 11/28/19 02:15 11/28/19 08:44 4 MG Polyethylene Glycol (miraLAX PACKET) 17 gm PRN DAILY PRN 11/27/19 09:00 Sodium Chloride 1,000 ml @ 400 mls/hr Q2H30M PRN 11/27/19 07:57 11/27/19 19:56 DC Vitamin B Complex/ Vitamin C (Rosy-Lance) 1 tab DAILY 11/27/19 09:00 11/28/19 08:37 1 TAB Lab Laboratory Tests Test 11/28/19 09:35 11/29/19 04:30 Prothrombin Time 15.6 SEC (11.7-14.0) Prothromb Time International Ratio 1.3 (0.8-1.1) Sodium Level 136 mmol/L (136-145) Potassium Level 5.3 mmol/L (3.5-5.1) Chloride Level 95 mmol/L (98-107) Carbon Dioxide Level 26 mmol/L (21-32) Anion Gap 15 (6-14) Blood Urea Nitrogen 70 mg/dL (8-26) Creatinine 8.8 mg/dL (0.7-1.3) Estimated GFR (Cockcroft-Gault) 7.6 Glucose Level 141 mg/dL (70-99) Calcium Level 8.4 mg/dL (8.5-10.1) Results All relevant outside records, renal labs, imaging studies, telemetry/EKG's were reviewed. Justicifation of Admission Dx: Justifications for Admission: Justification of Admission Dx: Yes Chronic Renal Failure: Uremic Symptoms MAGDIEL VOGEL MD Nov 29, 2019 09:13
[2019-11-29] MEDS ORDERED: DIALYSIS PATIENT. MC PRN ×2 (09:30)
[2019-11-29] MEDS ORDERED: diphenhydrAMINE 50 MG/ML VIAL IV PRN (09:30)
--- NOTE | 2019-11-29 09:38 | NUR ---
off floor for procedure: Thoracentesis and Dialysis
--- NOTE | 2019-11-29 09:46 | NUR ---
SS following up with discharge planning. SS reviewed pt chart and discussed with pt RN. Pt is currently requiring oxygen. Pt to IR today for Thoracentesis. Pt having dialysis today. Discharge plan is to home when medically ready. SS will continue to follow for discharge planning.
--- NOTE | 2019-11-29 10:02 | RAD ---
Ultrasound-guided right-sided thoracentesis 11.29.2019 Indication: Thoracentesis Procedure: Informed consent was obtained. A timeout procedure was performed. Sonographic evaluation of the right chest was performed demonstrating moderate pleural effusion. The right posterior chest was prepped and draped in sterile fashion. 1% lidocaine without epinephrine was administered for local anesthesia. Real-time ultrasonographic guidance was used in passing a 5 English Yueh catheter into the right pleural space. 2.0 L of serosanguineous pleural fluid was removed. Samples of fluid were sent to the lab for further evaluation per ordering physician request. The catheter was removed and pressure held to achieve hemostasis. A sterile dressing was applied. No immediate complications were identified. The patient tolerated the procedure well. Impression: Right sided ultrasound-guided thoracentesis
[2019-11-29] MEDS ORDERED: LIDOCAINE 1% PF 2 ML VIAL. ID ONE (10:12)
[2019-11-29] MEDS: diphenhydrAMINE 50 MG/ML VIAL IV PRN ×2 (10:31→10:44)
[2019-11-29] MEDS ORDERED: diphenhydrAMINE 50 MG/ML VIAL IVP ONE (11:15)
[2019-11-29] MEDS: HYDROcodone/APAP 5/325MG 1 TAB TABLET PO PRN ×2 (12:14→18:23)
--- NOTE | 2019-11-29 12:15 | NUR ---
Patient return to room from procedures: 2L fluid removed . Patient tolerated well . Patient BP after procedures 148/92. Patient received pain medication.
[2019-11-30 03:02] VITALS: BP 142/98
[2019-11-30 07:00] VITALS: BP 173/121
--- NOTE | 2019-11-30 08:41 | PDOC ---
PROGRESS NOTES Date of Service: DATE: 11/30/19 TIME: 08:39 Subjective Subjective feels ok Objective Objective Vital Signs Date Time Temp Pulse Resp B/P (MAP) Pulse Ox O2 Delivery O2 Flow Rate FiO2 11/30/19 07:31 96 Room Air 11/30/19 03:02 97.7 60 18 142/98 (113) 2.0 97.7 Intake and Output 11/30/19 07:00 Intake Total 990 ml Balance 990 ml Intake Oral 990 ml # Voids 3 Physical Exam Abdomen: Soft, Other (compressable area to umbilical area--I can not appreciate a hernia defect(reviewed CT from 11/19)) Heart: Regular rate, Normal S1, Normal S2 Extremities: No clubbing, No cyanosis General: Alert, Oriented X3, Cooperative HEENT: Atraumatic, PERRLA Lungs: Other (diminished ) Neck: Supple Neuro: Normal speech, Sensation intact Psych/Mental Status: Mental status NL, Mood NL Skin: No rashes, No breakdown Assessment Assessment FINAL IMPRESSION: 1. End-stage renal disease, missed dialysis for a week. 2. Malignant hypertension. 3. Recurrent right pleural effusion. 4. Hypertension. 5. Noncompliance. PLAN:Thoracocentecis rt side today by IR 2L removed yesterday Dialysisdone yesterday. no additional tests planned. d/c home later today. dialysis m,w,f out pt. labs reviewed. spoke with RN. Comment Review of Relevant I have reviewed the following items benjamin (where applicable) has been applied. Medications Current Medications Diphenhydramine HCl (Benadryl) 25 mg 1X ONCE IVP Last administered on 11/29/19at 11:11; Start 11/29/19 at 11:15; Stop 11/29/19 at 11:16; Status DC Diphenhydramine HCl (Benadryl) 25 mg 1X PRN PRN IV ITCHING Last administered on 11/29/19at 10:44; Start 11/29/19 at 09:30; Stop 11/30/19 at 09:29 Diphenhydramine HCl (Benadryl) 25 mg 1X PRN PRN IV ITCHING; Start 11/29/19 at 09:30; Stop 11/30/19 at 09:29 Info (PHARMACY MONITORING -- do not chart) 1 each PRN DAILY PRN MC SEE COMMENTS; Start 11/29/19 at 09:30 Info (PHARMACY MONITORING -- do not chart) 1 each PRN DAILY PRN MC SEE COMMENTS; Start 11/29/19 at 09:30; Status UNV Lidocaine HCl (Xylocaine-Mpf 1% 2ml Vial) 1 ml 1X ONCE ID ; Start 11/29/19 at 10:12; Stop 11/29/19 at 10:15; Status DC Sodium Chloride 1,000 ml @ 400 mls/hr Q2H30M PRN IV PATENCY; Start 11/29/19 at 09:00; Stop 11/29/19 at 20:59; Status DC Vitals/I & O Vital Sign - Last 24 Hours 11/29/19 11/29/19 11/29/19 11/29/19 12:14 13:33 15:00 18:23 Temp 98.2 98.2 Pulse 72 Resp 18 20 B/P (MAP) 159/110 (126) Pulse Ox 97 97 O2 Delivery Room Air Nasal Cannula Nasal Cannula Nasal Cannula O2 Flow Rate 3.0 2.0 11/29/19 11/29/19 11/29/19 11/29/19 19:00 20:10 21:37 21:37 Temp 97.6 97.6 Pulse 66 Resp 16 B/P (MAP) 128/93 (105) 128/93 128/93 Pulse Ox 98 O2 Delivery Nasal Cannula Nasal Cannula O2 Flow Rate 2.0 2.0 11/29/19 11/30/19 11/30/19 23:00 03:02 07:31 Temp 97.5 97.7 97.5 97.7 Pulse 66 60 Resp 17 18 B/P (MAP) 139/100 (113) 142/98 (113) Pulse Ox 99 95 96 O2 Delivery Nasal Cannula Nasal Cannula Room Air O2 Flow Rate 2.0 2.0 Intake and Output 11/29/19 11/29/19 11/30/19 15:00 23:00 07:00 Intake Total 200 ml 350 ml 440 ml Balance 200 ml 350 ml 440 ml Justicifation of Admission Dx: Justifications for Admission: Justification of Admission Dx: Yes Chronic Renal Failure: Uremic Symptoms ROSALINO SERRANO MD Nov 30, 2019 08:41
[2019-11-30] MEDS ORDERED: HYDR-2761 PO (08:42)
[2019-11-30] MEDS: DULoxetine HCL 30 MG CAPSULE.DR PO SCH (09:17)
[2019-11-30] MEDS: HYDROcodone/APAP 5/325MG 1 TAB TABLET PO PRN (09:17)
[2019-11-30] MEDS: ISOSORBIDE MONONITRATE ER 30 MG TAB.ER.24H PO SCH (09:17)
[2019-11-30] MEDS: amLODIPine BESYLATE 10 MG TABLET PO SCH (09:18)
[2019-11-30] MEDS: FOLIC/VIT B COMP W-C (RENAL) TABLET. PO SCH (09:18)
[2019-11-30] MEDS: CETIRIZINE HCL 10 MG TABLET. PO SCH (09:18)
[2019-11-30] MEDS: CARVEDILOL 6.25 MG TABLET. PO SCH (09:18)
[2019-11-30 09:19] VITALS: BP 173/121
[2019-11-30] MEDS: ASPIRIN ENTERIC COATED 325 MG TABLET.DR. PO SCH (09:19)
--- NOTE | 2019-11-30 10:05 | NUR ---
Discharge Note: FRANKIE GARCIA [address] Discharge instructions and discharge home medications reviewed with Patient and a copy given. All questions have been answered and understanding verbalized. The following instructions and handouts were given: Dialysis Discontinued lines and drains: Peripheral IV intact. Patient discharged to Home or Self Care with Self via Wheelchair
--- NOTE | 2019-11-30 10:10 | PDOC ---
DATE OF SERVICE DATE: 11/30/19 TIME: 10:07 SUBJECTIVE ROS c/o dizziness this morning, states "I am close to feeling wobbly " Denies SOB or CP , No N/V OBJECTIVE Vital Signs Vital Signs Date Time Temp Pulse Resp B/P (MAP) Pulse Ox O2 Delivery O2 Flow Rate FiO2 11/30/19 09:19 56 173/121 11/30/19 08:00 Nasal Cannula 2.0 11/30/19 07:31 96 11/30/19 07:00 97.7 18 97.7 I & 0 Intake and Output 11/30/19 07:00 Intake Total 990 ml Balance 990 ml Intake Oral 990 ml # Voids 3 PHYSICAL EXAM Physical Exam GENERAL: NAD HEENT: OM moist , On o2 by NC NECK: Supple. LUNGS: Diminished breath sounds on the right side. CARDIOVASCULAR: S1, S2. ABDOMEN: firmness in the middle abdomen . : No Zamorano EXTREMITIES: no edema. NEURO- Grossly Normal DERM - No rash DIAGNOSIS/ASSESSMENT Assessment & Plan ESRD - On HD MWF, transitioned from PD to HD No indication for HD today Chronic Non compliances, misses for weeks at a time, No HD for 1 week Acute respiratory failure with recurrent large right pleural effusion. Recent CxR- Large right pleural effusion, previously moderate. S/P Thoracentesis 2 lts fluid removal Hx of Recurrent right pleural effusion and Thoracentesis s/p thoracentesis on 10/24 1.7 Lt removed Acute on chronic diastolic heart failure in the setting of uncontrolled HTN Accelerated hypertension; - Non compliance with HD and meds Cath 04/29 without any significant CAD. C/O dizziness this am, Not Hypotensive , PCP following Chronic Noncompliance with HD, Diet and Meds COMMENT/RELEVANT DATA Meds Current Medications Medications (Trade) Dose Ordered Sig/Sascha Start Time Stop Time Status Last Admin Dose Admin Acetaminophen/ Hydrocodone Bitart (Lortab 5/325) 1 tab PRN Q6HRS PRN 11/27/19 19:30 11/30/19 09:17 1 TAB Albuterol Sulfate (Ventolin Neb Soln) 2.5 mg PRN Q4HRS PRN 11/27/19 09:00 Amlodipine Besylate (Norvasc) 10 mg DAILY 11/27/19 09:00 11/30/19 09:18 10 MG Aspirin (Ecotrin) 325 mg DAILYWBKFT 11/28/19 08:00 11/30/19 09:19 325 MG Carvedilol (Coreg) 6.25 mg BID 11/27/19 09:00 11/30/19 09:18 6.25 MG Cetirizine HCl (ZyrTEC) 10 mg DAILY 11/27/19 09:00 11/30/19 09:18 10 MG Clonidine HCl (Catapres) 0.1 mg 1X ONCE 11/27/19 04:30 11/27/19 04:31 DC 11/27/19 04:47 0.1 MG Diphenhydramine HCl (Benadryl) 25 mg 1X ONCE 11/29/19 11:15 11/29/19 11:16 DC 11/29/19 11:11 25 MG Docusate Sodium (Colace) 100 mg PRN DAILY PRN 11/27/19 09:00 Duloxetine HCl (Cymbalta) 30 mg DAILY 11/27/19 09:00 11/30/19 09:17 30 MG Hydralazine HCl (Apresoline) 50 mg BID 11/27/19 09:00 11/30/19 09:19 50 MG Hydromorphone HCl (Dilaudid) 0.5 mg 1X ONCE 11/27/19 05:00 11/27/19 05:01 DC 11/27/19 04:45 0.5 MG Info (PHARMACY MONITORING -- do not chart) 1 each PRN DAILY PRN 11/29/19 09:30 UNV Isosorbide Mononitrate (Imdur) 30 mg DAILY 11/27/19 09:00 11/30/19 09:17 30 MG Labetalol HCl (Normodyne Iv Push) 40 mg 1X ONCE 11/27/19 05:30 11/27/19 05:31 DC 11/27/19 05:09 40 MG Lidocaine HCl (Buffered Lidocaine 1%) 6 ml 1X ONCE 11/29/19 08:00 11/29/19 08:01 DC 11/29/19 08:25 6 ML Lidocaine HCl (Xylocaine-Mpf 1% 2ml Vial) 1 ml 1X ONCE 11/29/19 10:12 11/29/19 10:15 DC Ondansetron HCl (Zofran) 4 mg PRN Q6HRS PRN 11/28/19 02:15 11/28/19 08:44 4 MG Polyethylene Glycol (miraLAX PACKET) 17 gm PRN DAILY PRN 11/27/19 09:00 Sodium Chloride 1,000 ml @ 400 mls/hr Q2H30M PRN 11/29/19 09:00 11/29/19 20:59 DC Vitamin B Complex/ Vitamin C (Rosy-Lance) 1 tab DAILY 11/27/19 09:00 11/30/19 09:18 1 TAB Results All relevant outside records, renal labs, imaging studies, telemetry/EKG's were reviewed. Justicifation of Admission Dx: Justifications for Admission: Justification of Admission Dx: Yes Chronic Renal Failure: Uremic Symptoms MAGDIEL VOGEL MD Nov 30, 2019 10:10
--- NOTE | 2019-12-04 13:43 | PDOC ---
Provider Note Provider Note Discharge summary dictated.#[id number]. ROSALINO SERRANO MD Dec 04, 2019 13:43
--- NOTE | 2019-12-04 14:11 | DS ---
DATE OF DISCHARGE: 11/30/2019 REASON FOR ADMISSION TO THE HOSPITAL: Accelerated hypertension. The patient missed dialysis. The patient has end-stage renal disease. CONSULTATIONS: 1. Dr. Garcia. 2. Surgical consult Dr. Foss. PROCEDURES DONE: 1. Hemodialysis. 2. Thoracocentesis. HOSPITAL COURSE: The patient is a 54-year-old male with history of hypertension. He missed dialysis for a week. His blood pressure was high, when he came in 249/178. The patient was admitted to the hospital, was given dialysis and the patient also has recurrent pleural effusions. The patient had thoracocentesis, 2 liters was removed by Interventional Radiology and the patient was feeling better. He has some left inguinal as well as umbilical hernia, was seen by surgeon, does not recommend any surgery now, poor surgical candidate. The patient was feeling better. He was dialyzed for a couple of times in the hospital and his breathing is better. Blood pressure is under control. The patient was discharged to follow outpatient. FINAL DIAGNOSES: 1. Malignant hypertension. 2. The patient missed dialysis for 1 week. 3. End-stage renal disease, on dialysis. 4. Hypertension. 5. Recurrent pleural effusions. The patient had a thoracocentesis done removed 2 liters from rt pleural space. 6. Ascites from chronic liver disease and also hernias in the groin as well as umbilical hernia. 7. Non compliance DISPOSITION: Home. See [facility] for discharge medications. Continue outpatient dialysis. The patient is highly noncompliant, does not come to the office at all. ROSALINO SERRANO MD DR: REANTO/savannah JOB#: [id number] / [id number] [facility]ITALMelissa
== END 2019-11-30 10:15 | disposition home or self-care (01) | DRG 291 ==
LOC: ER 03:07 → 2 NORTH 06:24 → OBSVTOIN 08:00
PROVIDERS: ADMIT Internal Medicine; ATTEND Internal Medicine
PROC: 5A1D70Z Performance of Urinary Filtration, Intermittent, Less than 6 Hours Per Day (ICD-10-PCS; principal; 2019-11-27)
PROC: 5A1D70Z Performance of Urinary Filtration, Intermittent, Less than 6 Hours Per Day (ICD-10-PCS; 2019-11-29)
PROC: 0W993ZZ Drainage of Right Pleural Cavity, Percutaneous Approach (ICD-10-PCS; 2019-11-29)
DX: I13.2 Hypertensive heart and chronic kidney disease with heart failure and with stage 5 chronic kidney disease, or end stage renal disease (principal); I50.33 Acute on chronic diastolic (congestive) heart failure; J96.00 Acute respiratory failure, unspecified whether with hypoxia or hypercapnia; N18.6 End stage renal disease; J91.8 Pleural effusion in other conditions classified elsewhere; F41.9 Anxiety disorder, unspecified; G62.9 Polyneuropathy, unspecified; J45.909 Unspecified asthma, uncomplicated; Z82.3 Family history of stroke; Z82.49 Family history of ischemic heart disease and other diseases of the circulatory system; Z86.73 Personal history of transient ischemic attack (TIA), and cerebral infarction without residual deficits; Z91.19 Patient's noncompliance with other medical treatment and regimen; Z99.2 Dependence on renal dialysis; Z98.1 Arthrodesis status; Z88.5 Allergy status to narcotic agent; Z88.8 Allergy status to other drugs, medicaments and biological substances
CPT/HCPCS: 32555; 36415; 71046; 80048; 80053; 85025; 85610; 93005; 94760; 96372; 96374; 99285; C1892; G0378; G0379; J1170; J1200; J2405; J3490